=== PATIENT | female | born 1940 | race Caucasian/White ===

== ENCOUNTER 2017-09-28 11:37 | Inpatient (IN) ==
--- NOTE | 2017-09-28 12:17 | Emergency Department Report ---
Medical Clearance HPI - General Chief complaint: Medical Clearance Stated complaint: [facility] eval Time Seen by Provider: 09/28/17 12:08 Source: patient, RN notes reviewed Limitations: no limitations - History of Present Illness HPI Narrative: Pt presents for medical clearance for [facility] admit. Pt had a biopsy with a lumpectomy in July and has had progressively increasing delusions and somatic complaints since. Pt does have a known history of schizophrenia. Pt denies any physical complaints at this time. MD complaint: medical clearance requested Alleged Intoxication: No Compliant with Home Medications: Yes Associated Symptoms: denies other symptoms Home medications: Home Medications Medication Instructions Recorded Confirmed Acetaminophen 650 mg PO Q4H PRN 09/28/17 09/28/17 Amlodipine [Norvasc] 5 mg PO DAILY 09/28/17 09/28/17 CALCIUM CARBONATE Chewable [Tums] 1,000 mg PO Q6H PRN 09/28/17 09/28/17 Duloxetine HCl [Duloxetine HCl] 20 mg PO DAILY 09/28/17 09/28/17 Ferrous Sulfate [Iron] 325 mg PO DAILY 09/28/17 09/28/17 Insulin Glargine,Hum.rec.anlog 12 unit SQ HS 09/28/17 09/28/17 [Lantus Solostar] LORazepam [Ativan] 0.5 mg PO Q8H PRN 09/28/17 09/28/17 Letrozole [Letrozole] 2.5 mg PO DAILY 09/28/17 09/28/17 Levothyroxine Sodium 137 mcg PO ACB 09/28/17 09/28/17 [Levothyroxine Sodium] Lisinopril [Prinivil] 40 mg PO DAILY 09/28/17 09/28/17 Magnesium Hydroxide [Milk of 30 ml PO DAILY PRN 09/28/17 09/28/17 Magnesia] Magnesium Oxide [Magnesium] 400 mg PO ACBID 09/28/17 09/28/17 Metformin HCl [Glucophage] 1,000 mg PO BID 09/28/17 09/28/17 Oxybutynin Chloride [Oxybutynin 10 mg PO HS 09/28/17 09/28/17 Chloride ER] Potassium Chloride [Potassium 20 meq PO TID 09/28/17 09/28/17 Chloride] Tramadol [Ultram] 25 mg PO QID PRN 09/28/17 09/28/17 Triamcinolone 0.1% Cream 15 G 1 applicatio TOP DAILY 09/28/17 09/28/17 [Kenalog] risperiDONE [Risperidone] 0.5 mg PO QAM 09/28/17 09/28/17 risperiDONE [Risperidone] 1 mg PO HS 09/28/17 09/28/17 Allergies/Adverse reactions: Allergies Allergy/AdvReac Type Severity Reaction Status Date / Time amoxicillin Allergy Verified 09/28/17 12:11 clavulanic acid Allergy Verified 09/28/17 12:11 [From Augmentin] Penicillins Allergy Verified 09/28/17 12:11 Sulfa (Sulfonamide Allergy Verified 09/28/17 12:11 Antibiotics) trifluoperazine Allergy Verified 09/28/17 12:11 Review of Systems All systems: reviewed and negative except as stated Psychiatric: Reports: as per HPI PFSH Patient Stated Medical History Dementia Yes Hypertension Yes Diabetes Mellitus Type 2 Yes Gastroesophageal Reflux Yes Disease Hx Urinary Tract Infection Yes: HX Anemia Yes Other Infectious Yes: HX STAPH INFECTION "YEARS AGO" Bipolar Disorder Yes Depression Yes Schizophrenia Yes Physical Exam - Limitations Limitations: no limitations - General General appearance: alert, in no apparent distress - Normal Exams: Head:: Normocephalic without trauma Neck:: Full range of motion, without adenopathy Chest/Respirations:: Clear all mccann, with good airflow, and symmetry bilaterally Cardiovascular:: Regular rate and rhythm, without murmur or gallop, Pulses 2+ all extremities, capillary refill, <2 seconds all extremities Abdomen:: Bowel sounds positive, soft, non-tender, non-distended Musculoskeletal:: No tenderness, or deformity noted, good range of motion, all extremities Integumentary:: No rashes Neurological:: Patient is alert, cranial nerves, motor/sensory/cerebellar, exams w/o gross deficits, to observation Psychiatric:: Patient exhibits, appropriate attention, emotion and affect Course Vital Signs Temperature 97.2 F 09/28/17 11:40 Pulse Rate 90 09/28/17 11:40 Respiratory Rate 18 09/28/17 11:40 Blood Pressure 169/72 H 09/28/17 11:40 Pulse Oximetry 94 09/28/17 11:40 Temperature 97.2 F 09/28/17 11:40 Pulse Rate 90 09/28/17 11:40 Respiratory Rate 18 09/28/17 11:40 Blood Pressure 169/72 H 09/28/17 11:40 Pulse Oximetry 94 09/28/17 11:40 Medical Clearance - [facility] Narrative Medical decision making narrative: Labs, history and HPI reviewed. PT is medicaly clear for admission to [facility]. PT to be transferred per nursing - Differential Diagnosis Likely: urinary tract infection (depression, dementia, dehydration, acute psychosis) - Lab Data Attestation: I reviewed the patient's lab results. Result diagrams: 09/28/17 13:06 09/28/17 13:06 Lab Results 09/28/17 09/28/17 09/28/17 Range/Units 13:06 13:06 13:50 WBC 8.2 (4.5-11.0) T/MM3 RBC 3.64 L (4.00-5.20) M/MM3 Hgb 9.7 L (12-16) GM/DL Hct 31.0 L (36-46) % MCV 85.2 (80-100) UM3 MCH 26.6 (26-34) UUG MCHC 31.3 (31-37) GM/DL RDW Std Deviation 46.5 (36.9-50.2) FL Plt Count 209 (130-400) T/MM3 MPV 9.4 (9.4-12.4) UM3 Immature Gran % (Auto) 0.5 (0.0-0.5) % Neut % (Auto) 72.0 H (33-66) % Lymph % (Auto) 12.1 L (23-45) % Cole % (Auto) 9.8 H (0-9.0) % Eos % (Auto) 4.9 H (0-4) % Baso % (Auto) 0.7 (0-2) % Neut # (Auto) 5.9 (1.8-7.7) T/MM3 Lymph # (Auto) 1.0 (1-4.8) T/MM3 Cole # (Auto) 0.8 (0-0.8) T/MM3 Eos # (Auto) 0.4 (0-0.5) T/MM3 Baso # (Auto) 0.1 (0-0.2) T/MM3 Abs Immat Gran (auto) 0.04 H (0.00-0.03) T/MM3 Turbidity 23 H (0-20) Sodium 136 (134-144) MEQ/L Potassium 4.0 (3.6-5) MEQ/L Chloride 99 (98-107) MEQ/L Carbon Dioxide 26 (22-30) MEQ/L Anion Gap 11 (5-15) MEQ/L BUN 13.0 (7-17) MG/DL Creatinine 0.7 (0.7-1.2) MG/DL GFR Calculation 82 BUN/Creatinine Ratio 19 (6-26) RATIO Glucose 214 H (65-110) MG/DL Calculated Osmolality 268 (261-280) MOSM/KG Calcium 9.3 (8.4-10.2) MG/DL Total Bilirubin 0.40 (0.20-1.30) MG/DL Conjugated Bilirubin 0.00 (0.00-0.30) MG/DL Unconjugated Bilirubin 0.00 (0.00-1.1) MG/DL Icterus Index < 2 (0-7) AST 31 (14-36) U/L ALT 45 (9-52) U/L Alkaline Phosphatase 132 H (38-126) U/L Total Protein 7.3 (6.3-8.2) G/DL Albumin 4.0 (3.5-5.0) G/DL Globulin 3.3 (2.4-3.6) G/DL Albumin/Globulin Ratio 1.2 (1.1-2.2) RATIO Specimen Hemolysis < 15 (0-25) Ur Collection Type Urine, cath straight Urine Color Yellow (YELLOW) Urine Clarity Clear Urine pH 6.0 (5.0-8.0) Ur Specific [place] 1.015 (1.015-1.025) Urine Protein Negative (NEGATIVE) Urine Glucose (UA) Negative (NEGATIVE) Urine Ketones Negative (NEGATIVE) Urine Occult Blood Negative (NEGATIVE) Urine Nitrate Negative (NEGATIVE) Urine Bilirubin Negative (NEGATIVE) Urine Urobilinogen 0.2 (NORMAL) EU/DL Ur Leukocyte Esterase 1+ A (NEGATIVE) Urine RBC None seen (0-3) /HPF Urine WBC 5-10 H (0-5) /HPF Ur Squamous Epith Cells 0-5 Urine Bacteria None seen (NEGATIVE) Ur Culture Indicated? Cult not indicated Disposition Clinical Impression: Acute psychosis Schizo-affective psychosis Qualifiers: Schizoaffective disorder type: unspecified Qualified Code(s): F25.9 - Schizoaffective disorder, unspecified Disposition: 66 To [facility] Condition: Stable Prescriptions: No Action CALCIUM CARBONATE Chewable [Tums] 1,000 mg PO Q6H PRN PRN Reason: Indigestion Tramadol [Ultram] 25 mg PO QID PRN PRN Reason: Pain Acetaminophen 650 mg PO Q4H PRN PRN Reason: Pain Magnesium Hydroxide [Milk of Magnesia] 30 ml PO DAILY PRN PRN Reason: Constipation Oxybutynin Chloride [Oxybutynin Chloride ER] 10 mg PO HS Lisinopril [Prinivil] 40 mg PO DAILY Ferrous Sulfate [Iron] 325 mg PO DAILY Magnesium Oxide [Magnesium] 400 mg PO ACBID Metformin HCl [Glucophage] 1,000 mg PO BID Amlodipine [Norvasc] 5 mg PO DAILY risperiDONE [Risperidone] 1 mg PO HS Insulin Glargine,Hum.rec.anlog [Lantus Solostar] 12 unit SQ HS risperiDONE [Risperidone] 0.5 mg PO QAM Letrozole [Letrozole] 2.5 mg PO DAILY Triamcinolone 0.1% Cream 15 G [Kenalog] 1 applicatio TOP DAILY Levothyroxine Sodium [Levothyroxine Sodium] 137 mcg PO ACB LORazepam [Ativan] 0.5 mg PO Q8H PRN PRN Reason: Anxiety/Agitation Potassium Chloride [Potassium Chloride] 20 meq PO TID Duloxetine HCl [Duloxetine HCl] 20 mg PO DAILY Time of Disposition: 14:18 - Seen By: mireya
--- OUTSIDE RECORDS SUMMARY | 2017-09-28 12:22 | External Medical Summary | Referral Summary ---
:1940 Author Organization [facility] Address [address] [place] [address] Care Team Providers Name Role Phone Montez Rose Primary Care Physician Encounter [facility] [id number] Date(s): 04/21/15 - 04/21/15 [facility] [address] [place] [address]- [place] Discharge Diagnosis: Photoaged skin Discharge Diagnosis: Neoplasm of uncertain behavior, site unspecified Discharge Disposition: 01-Home or Self Care Attending Physician: Anam Melo MD Admitting Physician: Anam Melo MD Referring Physician: Montez Rose MD Vital Signs No data available for this section Problem List Condition Effective Dates Status Health Status Informant Acute pain(Confirmed) Active At risk of pressure sore(Confirmed) Active Bipolar disorder(Confirmed) Active patient Chronic anemia(Confirmed) Active patient Diabetes mellitus(Confirmed) Active patient GERD (gastroesophageal reflux Active patient disease)(Confirmed) Hyperlipidemia(Confirmed) Active patient Hypertension(Confirmed) Active patient Hypothyroidism(Confirmed) Active patient Knowledge deficit(Confirmed)1 Active Breast cancer(Confirmed) Active patient Tissue perfusion Active alteration(Confirmed)2 Tobacco user(Confirmed) Active patient 1Problem added automatically by system based on initiation of Knowledge Deficit Plan of [id number] added automatically by system based on initiation of Tissue Perfusion Cerebral Plan of Care Allergies, Adverse Reactions, Alerts Substance Reaction Severity Status amoxicillin unknown Active penicillin unknown Severe Active patient couldn"t remember sulfamethoxazole depression Severe Active Unknown trifluoperazine unknown Active Medications acetaminophen 325 mg oral tablet 2 tabs, Oral, q4hr, Pain Mild (1-3), 0 Refill(s) Start Date: 09/11/14 Status: Orderedalbuterol 2.5 mg/3 mL (0.083%) inhalation solution 3 mL, Inhalation, q2hr, as needed for wheezing, 0 Refill(s) Start Date: 08/28/14 Status: Orderedalbuterol 5 mg/mL (0.5%) inhalation solution 0.5 mL, NEB, q2hr (scheduled), Other (See Comment), 0 Refill(s) Start Date: 09/11/14 Status: OrderedhydrOXYzine hydrochloride 25 mg oral tablet 1 tabs, Oral, Bedtime (once a day), 0 Refill(s) Start Date: 09/11/14 Status: Orderedipratropium 500 mcg/2.5 mL inhalation solution 2.5 mL, NEB, q2hr (scheduled), Other (See Comment), 0 Refill(s) Start Date: 09/01/14 Status: OrderedKlor-Con 20 mEq, Oral, Daily, 0 Refill(s) Start Date: 09/01/14 Status: OrderedLasix 40 mgj, Oral, Daily, 0 Refill(s) Start Date: 08/28/14 Status: Orderedmagnesium oxide 400 mg (241.3 mg elemental magnesium) oral tablet 2 tabs, Oral, BIDWM, 0 Refill(s) Start Date: 09/01/14 Status: OrderedmetFORMIN 500 mg oral tablet 2 tabs, Oral, BIDWM, 0 Refill(s) Start Date: 09/01/14 Status: Orderedmiconazole 2% topical powder 1 amanda, Topical, BID, 0 Refill(s) Start Date: 09/11/14 Status: OrderedMiraLax 17 g, Oral, Daily, Constipation, 0 Refill(s) Start Date: 09/01/14 Status: Orderedomeprazole 20 mg oral delayed release capsule 1 caps, Oral, BID, 0 Refill(s) Start Date: 09/01/14 Status: OrderedSynthroid 137 mcg (0.137 mg) oral tablet 1 tabs, Oral, Daily, 0 Refill(s) Start Date: 09/01/14 Status: OrderedTherapeutic Multiple Vitamins with Minerals oral tablet, chewable Oral, Daily, 0 Refill(s) Start Date: 09/01/14 Status: OrderedToprol-XL 100 mg oral tablet, extended release 2 tabs, Oral, Daily, 0 Refill(s) Start Date: 09/01/14 Status: OrderedZyPREXA Zydis 10 mg oral tablet, disintegrating 1 tabs, Oral, Bedtime (once a day), # 30 tabs, 0 Refill(s), Indication: psychosis, other reason (Rx) Start Date: 09/11/14 Status: OrderedZyPREXA Zydis 5 mg oral tablet, disintegrating 0.5 tabs, Oral, Bedtime (once a day), Insomnia, 0 Refill(s) Start Date: 09/11/14 Status: Ordered Results No data available for this section Immunizations Vaccine Date Refusal Reason influenza virus vaccine, live 05/20/13 Procedures Procedure Date Related Diagnosis Body Site Shaving of epidermal or dermal lesion, single 04/21/15 lesion, scalp, neck, hands, feet, genitalia; lesion diameter 1.1 to 2.0 cm Shaving of epidermal or dermal lesion, single 04/21/15 lesion, scalp, neck, hands, feet, genitalia; lesion diameter 1.1 to 2.0 cm Shaving of epidermal or dermal lesion, single 04/21/15 lesion, scalp, neck, hands, feet, genitalia; lesion diameter 1.1 to 2.0 cm Cholecystectomy Total knee replacement Social History Social History Type Response Smoking Status Former smoker Assessment and Plan Extracted from: Title: Office Visit Note Author: Anam Melo MD Date: 04/21/15 Assessment/Plan 1.Photoaged skin Sun protection advised Ordered: Office Visit Level 2 [place] [address] Neoplasm of uncertain behavior, site unspecified Shave removal of 1.3 cm of tissue to rule out squamous cell carcinoma versus AK versus wart on the right dorsal hand area and I can excise this if needed Options/risks/benefits of the procedure were discussed and explained and consent was obtained. Specifically discussed risks of scarring, abnormal scarring, skin changes such as color or texture arcos ges, recurrence, bleeding, infection, need for further treatment, and other unexpected risks/outcomes of these types of skin procedures. Final timeout performed. Site(s) for biopsy were prepared by cleaning and injecting each site with <1cc of buffered lidocaine with epi 1: 100,000. Site(s) were removed with shave blade in usual fashion. Hemostasis was obtained with drysol and/or hyfrecation as needed. Ointment and bandages placed where needed. Wound care instructions given Ordered: Office Visit Level 2 [facility] [address] Shave 1 Lesion; Scalp, Neck, Hands, Feet, Genitalia (1.1 -2.0 cm) [id number]
--- OUTSIDE RECORDS SUMMARY | 2017-09-28 12:22 | External Medical Summary ---
:1940 Author Organization [employer] Care Team Providers Name Role Phone Ayah Zurita Provider Role Unavailable Allergies, Adverse Reactions, Alerts Substance Reaction Event Type Stelazine Info Not Available Non Drug Allergy Sulfa Info Not Available Non Drug Allergy Problems Problem Type Condition Code Onset Dates Condition Status Problem Gastric polyps 211.1 Active Problem Acute gastric ulcer 531.30 Active Problem Cirrhosis 571.5 Active Assessment Acute gastric ulcer 531.30 Active Assessment Cirrhosis 571.5 Active Assessment Gastric polyps 211.1 Active Medications Medication Code Code Instructions Start End Date Status Dosage System Date Cymbalta [facility] 34399-61 30 MG Orally 1 capsule 40-01 Twice a day Glucophage [facility] 47990-82 500 MG Orally 2 tablet 60-05 Twice a day with meals Zyprexa [facility] 01048-47 10 MG Orally at 1 tablet 17-01 bedtime HydrOXYzine HCl [facility] 37768-25 25 MG Orally at not defined 61-01 [place] [address]-84 40 MG Orally 1 tablet 60-13 Once a day Prilosec [facility] 36704-34 20 MG Orally 1 capsule 42-31 twice a day Klor-Con M20 [facility] 83985-91 20 MEQ Orally 1 tablet 58-01 daily Toprol XL [facility] 79115-67 100 MG Orally 2 tablet 92-05 Once a day Ipratropium-Albu [facility] 36075-50 0.5-2.5 (3) 3 ml terol 23-73 MG/3ML Inhalation Four [place] [address]-96 Orally as 17 grams 34-02 needed Miconazole [facility] 08496-33 as needed not defined 39-[address] [facility] 28160-13 1 MG Orally Once 3 capsule 26-01 a day Synthroid [facility] 15468-98 137 MCG Orally 1 tablet 27-13 Once a day Tylenol [facility] 99313-11 325 MG Orally 1 tablet as 96-60 every 6 hrs needed Zyprexa [facility] 96977-56 5 MG Orally at 0[place] [address]-02 0.5 MG Orally 1 tablet as three a day needed Magnesium Oxide [facility] 77721-46 400 MG Orally 2 tablets 05-18 twice a day Procedures Procedure Coding System Code Date Office Visit, Est Pt., Level 4 CPT-4 30818 May 25, 2015 Vital Signs Date/Time: May 25, 2015 Blood Pressure Diastolic 82 mm Hg Blood Pressure Systolic 138 mm Hg Weight 204.4 lbs Respiratory Rate 18 /min Cardiac Monitoring Heart Rate 78 /min Results No Known Results Summary Purpose [employer] Submission
--- OUTSIDE RECORDS SUMMARY | 2017-09-28 12:23 | External Medical Summary | Continuity of Care Document ---
:1940 Author Organization [facility] Address [address] [place], [place] [address] Phone Care Team Providers Name Role Phone Montez Rose MD Unavailable Unavailable Allergies, Adverse Reactions, Alerts Substance Reaction Severity Status amoxicillin Unknown Active Penicillins Unknown Active Sulfa (Sulfonamide Antibiotics) Unknown Active trifluoperazine Unknown Active Medications Medication Instructions Dosage Effective Status Comments Dates (start - stop) Synthroid 137 mcg take 1 tablet by 137 MCG - Active tablet oral route every day Lantus 100 unit/mL 10 units at - Active subcutaneous bedtime solution acetaminophen 325 take 1 tablet by - Active mg tablet oral route every 4 hours as needed tramadol 50 mg take 1 tablet by 50 MG - Active tablet oral route every 6 hours as needed doxycycline hyclate take 1 tablet by 100 MG - Active 100 mg tablet oral route every day iron 325 mg (65 mg take 1 tablet by 325 MG - Active iron) tablet ORAL route every day magnesium 250 mg - Active tablet oxybutynin chloride take 1 tablet by 10 MG - Active ER 10 mg oral route every tablet,extended day release 24 hr lisinopril 30 mg take 1 tablet by 30 MG - Active tablet oral route every day Ativan 0.5 mg Take 1 PO TID - Active tablet Cymbalta 30 mg take 1 capsule by - Active capsule,delayed oral route 2 times release every day metformin 500 mg Given 3 tabs PO in - Active tablet AM and 2 tabs PO in PM Zyprexa 10 mg take 1 tablet by 10 MG - Active tablet oral route every day Klor-Con M20 mEq take 1 tablet by 20 MEQ - Active tablet,extended oral route every release day with food nystatin 100,000 apply by topical Not Available - No Longer unit/gram topical route 2 times Active cream every day to the affected area(s) miconazole powder Apply to asmita area - No Longer QD for vaginal Active itching Therapeutic M Take 1 chewable - No Longer tablet tablet QD Active Toprol XL 50 mg take 1 tablet by 50 MG - No Longer tablet,extended oral route every Active release day Amaryl 2 mg tablet take 1 tablet by 2 MG - No Longer oral route every Active day Prilosec 20 mg take 1 capsule by 20 MG - No Longer capsule,delayed oral route 2 times Active release every day before a meal Problems Condition Effective Dates (start - stop) Clinical Status Uterine Cancer, Endometrial Morbid (severe) obesity due to excess calories Lichen sclerosus et atrophicus Body mass index (BMI) 39.0-39.9, adult Uterine Cancer, Endometrial Morbid (severe) obesity due to excess calories Body mass index (BMI) 38.0-38.9, adult Uterine Cancer, Endometrial Morbid (severe) obesity due to excess calories Oth complications of procedures, NEC, init Body mass index (BMI) 38.0-38.9, adult Uterine Cancer, Endometrial Oth complications of procedures, NEC, init Encntr for f/u exam aft trtmt for cond oth than malig neoplm Uterine Cancer, Endometrial Oth complications of procedures, NEC, init Encntr for f/u exam aft trtmt for cond oth than malig neoplm Uterine Cancer, Endometrial Morbid (severe) obesity due to excess calories Body mass index (BMI) 40.0-44.9, adult Uterine Cancer, Endometrial Type 2 diabetes mellitus without complications Morbid (severe) obesity due to excess calories Body mass index (BMI) 45.0-49.9, adult Uterine Cancer, Endometrial Type 2 diabetes mellitus without complications Body mass index (BMI) 38.0-38.9, adult Type 2 diabetes mellitus without complications Morbid (severe) obesity due to excess calories Paranoid schizophrenia Endometrial Hyperplasia, Complex With Atypia Body mass index (BMI) 39.0-39.9, adult Endometrial Hyperplasia, Complex With Atypia Body Mass Index 37.0-37.9, Adult - Active Hypertension - Active Hyperlipidemia Active Procedures Procedure Date Office/outpatient visit,est, mod Results Test Name Date and Time Measure Units Reference Range Abnormal Flag Comments Unknown Advance Directives Directive Yes / No Effective Date File Name Unknown Encounters Encounter Practice Location Reason(s) For Diagnoses Date Provider Care Team Description Visit Members Office/outpa [facility] uterine Uterine Cancer, [place] Referring tient In Womens cancer EndometrialMorbi Escobar. Provider: visit,est, [facility], surveillance d (severe) [address] (chief obesity due to [place], [place], [address], complaint)Makayla excess [place], [address], rine cancer caloriesLichen [place], [place], [place], (chief sclerosus et [id number] [address], , complaint) atrophicus[place] , [place], [address]. [place] mass index (BMI) tel: tel:+ tel:+ 39.0-39.9, adult [phone] [facility] Uterine Cancer, [place] Referring In Womens EndometrialType Escobar. Provider: [facility], 2 diabetes [address] mellitus without [place], [place], [address], complicationsMor [place], [address], bid (severe) [place], ANAND Nielsen, obesity due to [id number] [place], [id number], [place] , [place], [address]. [place] caloriesBody tel: tel: tel:+2 mass index (BMI) [phone] 45.0-49.9, adult [facility] Uterine Cancer, [place] Referring In Womens EndometrialMorbi Escobar. Provider: [facility], d (severe) [address] obesity due to [place], [place], [address], excess [place], [address], caloriesBody [place], [place], [place], mass index (BMI) [id number] [place], [id number], 40.0-44.9, [place] , [place], [address]. [place] tel: tel:+[phone] tel:[phone] [facility] Uterine Cancer, [place] Referring In Womens EndometrialType 1- Escobar. Provider: Cruzito CARMONA, Robin diabetes [address] mellitus without [place], [place], [address], complicationsBod [place], [address], y mass index [place], [place], [place], (BMI) 38.0-38.9, [id number] [place], [id number], [place] , [place], [address]. [place] tel: tel: tel: [phone] [facility] Uterine Cancer, [place] Referring In Womens EndometrialMorbi - Escobar. Provider: Cruzito CARMONA d (severe) [address] obesity due to [place], [place], [address], excess [place], [address], caloriesBody ANAND, [place], [place], mass index (BMI) [id number] [place], [id number], 38.0-38.9, [place] , [place], [address]. [place] tel: tel: tel: [phone] [facility] Uterine Cancer, [place] Referring In Womens EndometrialMorbi 4-201 Escobar. Provider: [place] (severe) [address] obesity due to [place], [address], excess [place], [address], caloriesOth [place], [place], [place], complications of [id number] [place], [id number], procedures, [place], , [place], [address]. [place] initBody mass tel: tel: tel: index (BMI) [phone] 38.0-38.9, adult [facility] Uterine Cancer, [place] Referring In Womens EndometrialOth 3- Escobar. Provider: Cruzito CARMONA, complications of [address] procedures, N[place], [place], 15[address], initEncntr for [place], [address], f/u exam aft [place], [place], [place], trtmt for cond [id number] [place], [id number], ot than [facility] , [place], [address]. [place] neoplm tel: tel: tel: [phone] [facility] Uterine Cancer, [place] Referring In Womens EndometrialOth 1- Escobar. Provider: Health MATHEW, complications of [address] procedures, N[place], [place], 1522, initEncntr for [place], [address], f/u exam aft [place], [place], [place], trtmt for cond [id number] [place], [id number], ot than [facility] , [place], [address]. [place] neoplm tel: tel: tel: [phone] [facility] Endometrial May- [place] Referring In Womens Hyperplasia, 7 Escobar. Provider: Cruzito CARMONA, Complex With [address] Atypia [place], 15[address], [place], [address], [place], [place], [place], [id number] [address], [id number], , [place], [address]. [place] tel: tel: tel: [phone] [facility] Type 2 diabetes May-2 [place] In Womens mellitus without 0-201 Amanda CARMONA, complicationsMor [address] bid (severe) [place], 1522, obesity due to [place], [place], [place], [place], caloriesParanoid [id number], [facility] , [place]. [place] ometrial tel: tel: Hyperplasia, [phone] Complex With AtypiaBody mass index (BMI) 39.0-39.9, adult [facility] Nov- [place] Referring In Womens 2-201 Escobar. Provider: Health MATHEW, [address] [place] [address], [address], [place], [address], [place], [place], [place], [id number] [address], [id number], , [place], [address]. [place] tel: tel: tel: [phone] [facility] Nov-0 [place] Referring In Womens 9-201 Amanda Provider: [facility], [address]. [address] [place] [address], [address], [place], [address], [place], [place], [place], [id number] [place], [id number], , [place], [address]. [place] tel: tel: tel: [phone] Family History Family Member Diagnosis Age At Onset No family history of Lung Disease No family history of Osteoporosis No family history of Kidney Disease No family history of Ovarian Cancer Mother Diabetes mellitus Mother Hypertension Father Cardiovascular Disease No family history of Epilepsy No family history of Stroke No family history of Colon Cancer No family history of Breast Cancer No family history of Thyroid Disorder Immunizations Vaccine Date Status Comments Unknown Payers Payer name Insurance type Covered libertarian ID Authorization(s) Medicare MB [id number] [employer] [place] [employer] - Medicaid MC [id number] Social History Type Description Quantity Date Captured Alcohol Use Details No Caffeine Use Details Tobacco Use Status Never smoked tobacco Smoking Status Never smoker Non-Smoking Tobacco Use : No Details Available : No Details Available Details Vital Signs Date / Height Weight BMI Pulse Blood Temperature Respiratory Body Head BMI Time: Rate Pressure Rate Surface Circumference percentile Area 61.00 207.00 39.1 72 138/ in lbs 1 /min mm[Hg] 1:34 kg/m PM eter (2) Chief Complaint And Reason For Visit Most recent encounter only, dated '08/22/2017 13:40'. uterine cancer surveillance (chief complaint). Description: Primary tumor location was the uterus. She is currently not undergoing any treatment. Previous treatment include(s) surgery. Performance Status: The patient is restricted in some physical activity but is able to perform normal activities with effort. She had Rt breast lumpectomy last month w/Dr. Caldwell. She states that it was cancer. She states that she has been having a vaginal discharge x 1 month. She does states that she has itching, burning and odor. She has some abdominal pain. No pelvic pain. Nrl bowel and bladder function. Appetiteis stable. She is to see a Medical Oncologist in the near future.Uterine cancer (chief complaint). Description: Initial consult on 12/16/14. Referred by Dr. Rose for pelvic/ uterine mass. Patient is accompanied today by her jail transporter. Pt is a poor historian and isn't sure why she is here for appointment today. Per records, pt had a CT scanon 10/12/14 for f/u cirrhosis and ascites. Pt had incidental uterine findings and was referred here. CT on 10/12/14: There is a low density foci centrally in the uterus that measures 2.1cm. US on : the uterus measures 3.8 x 8.7cm. In the anterior myometrium there is a hypoechoic 1.7 x 1.0cm mass consistent with a fibroid. The endometrial echo measures 10mm. Within the central portion of theendometrial cavity at the fundus there is increased blood flow. TVUS was then performed on 11/05/14 but was limited due to the high location of the uterus. Report states the images were of better quality from 10/16/14. Pt states she has had some vaginal spotting in the last few weeks. She is unsure of the origin but believes it may be due to sc Reason For Referral Reason For Referral Unknown Plan Of Care Date Type Action Status Appointment Savanna Glass BOOKED Date Type Problem Goal Intervention Status Start Date Unknown. History Of Present Illness Encounter Date Complaint History Of Present Illness uterine cancer surveillance Primary tumor location was the uterus. She is currently not undergoing any treatment. Previous treatment include(s) surgery. Performance Status: The patient is restricted in some physical activity but is able to perform normal activities with effort. She had Rt breast lumpectomy last month w/Dr. Caldwell. She states that it was cancer. She states that she has been having a vaginal discharge x 1 month. She does states that she has itching, burning and odor. She has some abdominal pain. No pelvic pain. Nrl bowel and bladder function. Appetite is stable. She is to see a Medical Oncologist in the near future. Uterine cancer Initial consult on 12/16/14. Referred by Dr. Rose for pelvic/uterine mass. Patient is accompanied today by her jail transporter. Pt is a poor historian and isn't sure why she is here for appointment today. Per records, pt had a CT scan on 10/12/14 for f/u cirrhosis and ascites. Pt had incidental uterine findings and was referred here. CT on 10/12/14: There is a low density foci centrally in the uterus that measures 2.1cm. US on 10/16/14: the uterus measures 3.8 x 8.7cm. In the anterior myometrium there is a hypoechoic 1.7 x 1.0cm mass consistent with a fibroid. The endometrial echo measures 10mm. Within the central portion of the endometrial cavity at the fundus there is increased blood flow. TVUS was then performed on 11/05/14 but was limited due to the high location of the uterus. Report states the images were of better quality from 10/16/14. Pt states she has had some vaginal spotting in the last few weeks. She is unsure of the origin but believes it may be due to... Functional Status Encounter Date Functional Assessment Cognitive Assessment Unknown Medications Administered Medication Instructions Dosage Effective Dates (start - stop) Status Comments Drug Treatment Unknown Instructions Date Instruction Additional Information Unknown
--- OUTSIDE RECORDS SUMMARY | 2017-09-28 12:23 | External Medical Summary | Referral Summary ---
:1940 Author Organization [facility] Address [address] [place] [address] Care Team Providers Name Role Phone Montez Rose Primary Care Physician Encounter VC Date(s): 12/29/14 - 12/29/14 [facility] [address] [place] [address] [place] Discharge Disposition: 01-Home or Self Care Attending Physician: Brit Juarez MD Admitting Physician: Brit Juarez MD Vital Signs No data available for [...] on initiation of Knowledge Deficit Plan of [id number] added automatically by system based on initiation [...] Procedures Procedure Date Related Diagnosis Body Site Cholecystectomy Total knee replacement Social History Social History Type Response Smoking Status Former smoker Assessment and Plan No data available for this section
--- OUTSIDE RECORDS SUMMARY | 2017-09-28 12:23 | External Medical Summary | Continuity of Care Document ---
:1940 Author Organization [facility] Address [address] [place], [place] [address] Phone Care Team Providers Name Role Phone Montez Rose MD Unavailable Unavailable Allergies, Adverse Reactions, Alerts Substance Reaction Severity Status amoxicillin Unknown Active Penicillins Unknown Active Sulfa (Sulfonamide Antibiotics) Unknown Active trifluoperazine Unknown Active Medications Medication Instructions Dosage Effective Dates Status Comments (start - stop) Synthroid 137 mcg take 1 tablet by 137 MCG - Active tablet oral route every day Lantus 100 unit/mL 10 units at bedtime - Active subcutaneous solution lisinopril 30 mg take 1 tablet by 30 MG - Active tablet oral route every day Ativan 0.5 mg tablet Take 1 PO TID - Active Cymbalta 30 mg take 1 capsule by - Active capsule,delayed oral route 2 times release every day nystatin 100,000 apply by topical Not Available - Active unit/gram topical route 2 times every cream day to the affected area(s) miconazole powder Apply to asmita area - Active QD for vaginal itching Therapeutic M tablet Take 1 chewable - Active tablet QD Toprol XL 50 mg take 1 tablet by 50 MG - Active tablet,extended oral route every release day metformin 500 mg Given 3 tabs PO in - Active tablet AM and 2 tabs PO in PM Amaryl 2 mg tablet take 1 tablet by 2 MG - Active oral route every day Prilosec 20 mg take 1 capsule by 20 MG - Active capsule,delayed oral route 2 times release every day before a meal Zyprexa 10 mg tablet take 1 tablet by 10 MG - Active oral route every day Klor-Con M20 mEq take 1 tablet by 20 MEQ - Active tablet,extended oral route every release day with food Problems Condition Effective Dates (start - stop) Clinical Status Uterine Cancer, Endometrial Morbid (severe) obesity due to excess calories Body mass index (BMI) 40.0-44.9, adult Uterine Cancer, Endometrial Morbid (severe) obesity [...] oth than malig neoplm Uterine Cancer, Endometrial Type 2 diabetes mellitus without complications Body mass index (BMI) 38.0-38.9, adult Type 2 diabetes mellitus without complications Morbid (severe) obesity due to excess calories Paranoid schizophrenia Endometrial Hyperplasia, Complex With Atypia Body mass index (BMI) 39.0-39.9, adult Endometrial Hyperplasia, Complex With Atypia Body Mass Index 37.0-37.9, Adult - Active Hypertension - Active Hyperlipidemia Active Procedures Procedure Date Office/outpatient visit,[facility] Results Test Name Date and Time Measure Units Reference Range Abnormal Flag Comments Unknown Advance Directives Directive Yes / No Effective Date File Name Unknown Encounters Encounter Practice Location Reason(s) For Diagnoses Date Provider Care Team Description Visit Members Office/outpa [facility] Uterine Uterine Cancer, Ant Referring tient In Womens cancer EndometrialMorbi 8-201 Escobar. Provider: visit,[facility], surveillance d (severe) [address] (chief obesity due to [place], 15[address], complaint)Makayla excess [place], [address], rine cancer caloriesBody [place], [place], (chief mass index (BMI) [id number] [address], [id number], complaint) 40.0-44.9, adult , [place]. [place], tel: [place], [address]. tel:[phone] tel:[phone] [facility] Uterine Cancer, [place] Referring In Womens EndometrialType 1-201 Escobar. Provider: Health MATHEW, 2 diabetes [address] mellitus without [place], [place], [address], complicationsBod [place], [address] [place], y mass index [place], [place], (BMI) 38.0-38.9, [id number] [address], [id number], adult , [place]. [place], [place] tel:+09-26 [place], [address]. tel:+ [phone] tel: [phone] [facility] Uterine Cancer, [place] Referring In Womens EndometrialMorbi - Escobar. Provider: [facility], d (severe) [address] obesity due to [place], [place], [address], excess [place], [address], caloriesBody [place], [place], mass index (BMI) 532895350 [address], , 38.0-38.9, adult , [place]. [place], [place] tel:+09-26 [place], [address]. tel:[phone] tel: [phone] [facility] Uterine Cancer, [place] Referring In Womens EndometrialMorbi 4-201 Escobar. Provider: Health MATHEW, d (severe) [address] obesity due to [place], 1522, excess [place], [address], caloriesOth [place], [place], complications of [id number] [address], [id number], procedures, N[place], , [place]. [place], [place], [address]. tel: index (BMI) [phone] tel:+ 38.0-38.9, adult [phone] [facility] Uterine Cancer, [place] Referring In Womens EndometrialOth 3-201 Escobar. Provider: Cruzito CARMONA, complications of [address] procedures, NEC, [place], [place], [address], initEncntr for [place], [address], f/u exam aft [place], [place], trtmt for cond [id number] [address], [id number], [facility] [place], neoplm tel: [place], [address]. tel: [phone] tel: [phone] [facility] Uterine Cancer, Nov- [place] Referring In Womens EndometrialOth 1- Escobar. Provider: [facility], complications of [address] procedures, NEC, [place], 1522, initEncntr for [place], [address], f/u exam aft [place], [place], trtmt for cond [id number] [address], [id number], [facility] [place], neoplm [place], [address]. tel: [phone] tel: [phone] [facility] Endometrial May- [place] Referring In Womens Hyperplasia, 7-201 Escobar. Provider: Health MATHEW, Complex With [address] Atypia [place], 15[address], [place], [address], [place], [place], [id number] [address], [id number], , . [place], [place], [address]. tel: [phone] tel: [phone] [facility] Type 2 diabetes May-2 [place] In Womens mellitus without 0-201 Amanda [place], complicationsMor 5 [address] bid (severe) [place], 1522, obesity due to [place], [place], excess [place], [place], caloriesParanoid [id number], [facility] , . [place] ometrial tel: tel: Hyperplasia, Complex With AtypiaBody mass index (BMI) 39.0-39.9, adult [facility] Nov-2 [place] Referring In Womens 2-201 Escobar. Provider: Health MATHEW, [address] [place], 1522, [place], [address] [place] [place], [facility], [id number] [address] [facility], [id number], , [place]. [facility] tel: [place], [address]. tel: [phone] tel: [phone] [facility] Apr-0 [place] Referring In Womens 9-201 Amanda Provider: Health MATHEW, [address] [place], 15[address], [place], [address] [place], [place], [place], [place], [id number] [place], [id number], , [place], [address]. tel: tel: tel: [phone] Family History Family Member Diagnosis Age At [...] Unknown Payers Payer name Insurance type Covered green party ID Authorization(s) Medicare MB [id number] [employer] [place] [employer] - Medicaid MC [id number] Social History Type Description Quantity Date Captured Alcohol Use Details No Caffeine Use Details Tobacco Use Status Never smoked tobacco Smoking Status Never smoker Vital Signs Date / Height Weight BMI Pulse Blood Temperature Respiratory Body Head BMI Time: Rate Pressure Rate Surface Circumference percentile Area 61.00 216.80 40.9 140/80 -2015/ in lbs 6 mm[Hg] 14:30: kg/m 00 eter (2) Chief Complaint And Reason For Visit Most recent encounter only, dated '08/23/2016 14:10'. Uterine cancer surveillance (chief complaint). Description: Primary tumor location was the uterus. She is currently not undergoing any treatment. Previous treatment include(s) surgery. Performance Status: The patient is restricted in some physical activity but is able to perform normal activities with effort. Patient had (L) shoulder surgery Jun 29 w/ Dr. Brush. She is currently going through PT. She reports she is doing well, appetite is stable. Nrl bowel/ bladder. Denies vaginal/rectal bleeding or any pain at this time.Uterine cancer (chief complaint). Description: Initial consult on 12/16/14. Referred by Dr. Rose for pelvic/uterine mass. Patient is accompanied today by her shelter transporter. Pt is a poor historian and [...] Encounter Date Complaint History Of Present Illness Uterine cancer surveillance Primary tumor location was the uterus. She is currently not undergoing any treatment. Previous treatment include(s) surgery. Performance Status: The patient is restricted in some physical activity but is able to perform normal activities with effort. Patient had (L) shoulder surgery Jun 29 w/ Dr. Brush. She is currently going through PT. She reports she is doing well, appetite is stable. Nrl bowel/bladder. Denies vaginal/rectal bleeding or any pain at this time. Uterine cancer Initial consult on 12/16/14. Referred by Dr. Rose for pelvic/uterine mass. Patient is accompanied today by her shelter transporter. Pt is a poor historian and [...]
--- OUTSIDE RECORDS SUMMARY | 2017-09-28 12:23 | External Medical Summary ---
:1940 Author Organization eClinicalWorks Care Team Providers Name Role Phone Varun Soto Provider Role Unavailable Allergies No Known Allergies Problems Problem Type Condition ICD-9 Code Onset Dates Condition Status Assessment Cirrhosis 571.5 Active Medications No Known Medications Results No Known Results Summary Purpose eClinicalWorks Submission
--- OUTSIDE RECORDS SUMMARY | 2017-09-28 12:23 | External Medical Summary | Continuity of Care Document ---
:1940 Author Organization [facility] Address [address] [place], [place] [id number] Phone Care Team Providers Name Role Phone Montez Rose MD Unavailable Unavailable Allergies, Adverse Reactions, Alerts Substance Reaction Severity Status amoxicillin Unknown Active trifluoperazine Unknown Active Penicillins Unknown Active Sulfa (Sulfonamide Antibiotics) Unknown Active Medications Medication Instructions Dosage Effective Dates Status Comments (start - stop) Synthroid 137 mcg take 1 tablet by oral 137 MCG - Active tablet route every day Lantus 100 unit/mL 10 units at bedtime - Active subcutaneous solution acetaminophen 325 mg take 1 tablet by oral - Active tablet route every 4 hours as needed tramadol 50 mg tablet take 1 tablet by oral 50 MG - Active route every 6 hours as needed doxycycline hyclate take 1 tablet by oral 100 MG - Active 100 mg tablet route every day iron 325 mg (65 mg take 1 tablet by ORAL 325 MG - Active iron) tablet route every day magnesium 250 mg - Active tablet oxybutynin chloride ER take 1 tablet by oral 10 MG - Active 10 mg tablet,extended route every day release 24 hr lisinopril 30 mg take 1 tablet by oral 30 MG - Active tablet route every day Ativan 0.5 mg tablet Take 1 PO TID - Active Cymbalta 30 mg take 1 capsule by - Active capsule,delayed oral route 2 times release every day metformin 500 mg Given 3 tabs PO in AM - Active tablet and 2 tabs PO in PM Zyprexa 10 mg tablet take 1 tablet by oral 10 MG - Active route every day Klor-Con M20 mEq take 1 tablet by oral 20 MEQ - Active tablet,extended route every day with release food Problems Condition Effective Dates (start - [...] Active Hyperlipidemia Active Procedures Procedure Date Office/outpatient visit,[facility] [place] Test Name Date and Time Measure Units Reference Range Abnormal Flag Comments Unknown Advance Directives Directive Yes / No Effective Date File Name Unknown Encounters Encounter Practice Location Reason(s) For Diagnoses Date Provider Care Team Description Visit Members Office/outpa [facility] uterine Uterine Cancer, Ant Referring tient In Womens cancer EndometrialMorbi 7-201 [place]. Provider: visit,est, Health [place], surveillance d (severe) [address] (chief obesity due to [place], 1522, complaint)[place] excess [place], [address] [place], rine cancer caloriesLichen [place], ANAND Nielsen, (chief sclerosus et [phone] [place], , complaint) at[place]us[place] , [place], [address]. [place] mass index (BMI) tel: tel: tel: 39.0-39.9, adult [phone] [facility] Uterine Cancer, [place] Referring In Womens EndometrialType [place]. Provider: Health MATHEW, 2 diabetes [address] mellitus without [place], [place], 1522, complicationsMor [place], [address] [place], bid (severe) [place], obesity due to [id number] [place], [id number], [place] , [place], [address]. [place] caloriesBody tel: tel: tel: mass index (BMI) [phone] 45.0-49.9, adult [facility] Uterine Cancer, [place] Referring In Womens EndometrialMorbi [place]obar. Provider: Health [place], d (severe) [address] obesity due to [place], [place], [address], excess [place], [address] [place], caloriesBody [place], ANAND Nielsen, mass index (BMI) [phone] [place], [id number], 40.0-44.9, [place] , [place], [address]. [place] tel: tel: tel: [phone] [facility] Uterine Cancer, [place] Referring In Womens EndometrialType -201 [place]. Provider: Health MATHEW, 2 diabetes [address] mellitus without [place], [place], 1522, complicationsBod [place], [address] [place], y mass index [place], ANAND Nielsen, (BMI) 38.0-38.9, [id number] [place], [id number], [place] , [place], [address]. [place] tel: tel: tel: [phone] [facility] Uterine Cancer, [place] Referring In Womens EndometrialMorbi [place]. Provider: [place] (severe) [address] obesity due to [place], [place], 1522, excess [place], [address] [place], caloriesBody [place], ANAND Nielsen, mass index (BMI) [phone] [place], [id number], 38.0-38.9, [place] , [place], [address]. [place] tel: tel: tel: [phone] [facility] Uterine Cancer, [place] Referring In Womens EndometrialMorbi 201 [place]. Provider: [place] (severe) [address] obesity due to [place], [place], [address], excess [place], [address] [place], caloriesOth [place], ANAND Nielsen, complications of [phone] [place], , procedures, [place], , [place], [address]. [place] initBody mass tel: tel: tel: index (BMI) [phone] [id number] 38.0-38.9, adult [facility] Uterine Cancer, [place] Referring In Womens EndometrialOth [place]. Provider: Cruzito CARMONA, complications of [address] procedures, NEC, [place], [place], [address], initEncntr for [place], [address] [place], f/u exam aft [place], trtmt for cond [id number] [place], [id number], [facility] , [place], [address]. [place] neoplm tel: tel: tel: [phone] [facility] Uterine Cancer, [place] Referring In Womens EndometrialOth - [place]. Provider: Cruzito CARMONA, complications of [address] procedures, NEC, [place], [place], [address], initEncntr for [place], [address] [place], f/u exam aft [place], trtmt for cond [phone] [place], [id number], oth than [facility] , [place], [address]. [place] neoplm tel: tel: tel: [phone] [facility] Endometrial May- [place] Referring In Womens Hyperplasia, 7-201 [place]. Provider: Health [place], Complex With [address] Atypia [place], [address], [place], [address] [place], [place], [place], [phone] [place], [id number], , [place], [address]. [place] tel: tel: tel: [phone] [facility] Type 2 diabetes May-2 [place] In Womens mellitus without 0-201 [facility] MATHEW, complicationsMor [address] bid (severe) [place], [address]22, obesity due to [place], [place], excess [place], [place], caloriesParanoid [id number], schizophreniaEnd , [place]. [place] ometrial tel: tel: Hyperplasia, [phone] Complex With AtypiaBody mass index (BMI) 39.0-39.9, adult [facility] [place] Referring In Womens 2-201 [place]obar. Provider: Health MATHEW, [address] [place], [address], [place], [address] [place], [place], [place], [place], [phone] [place], [id number], , [place], [address]. [place] tel: tel: tel: [phone] [facility] Apr-0 [place] Referring In Womens 9-201 Amanda Provider: Health MATHEW, [address] [place], [address], [place], [address] [place], [place], [place], [phone] [place], [id number], , [place], [address]. [place] tel: tel: tel: [phone] Family History Family Member Diagnosis Age At [...] Unknown Payers Payer name Insurance type Covered democrat ID Authorization(s) Medicare MB [id number] [employer] [place] [employer] - Medicaid [place] [id number] Social History Type Description Quantity Date Captured [...] mass. Patient is accompanied today by her [place] [facility]. Pt is a poor historian and [...] mass. Patient is accompanied today by her [place] [facility] [place]. Pt is a poor historian and [...]
--- OUTSIDE RECORDS SUMMARY | 2017-09-28 12:23 | External Medical Summary ---
:1940 Author Organization eClinicalWorks Care Team Providers Name Role Phone Varun oSto Provider Role Unavailable Allergies No Known Allergies Problems No Known Problems Medications No Known Medications Results No Known Results Summary Purpose eClinicalWorks Submission
--- OUTSIDE RECORDS SUMMARY | 2017-09-28 12:23 | External Medical Summary | Referral Summary ---
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 Discharge Disposition: 01-Home or Self Care Attending [...] on initiation of Knowledge Deficit Plan of [id number] added automatically by system based on initiation [...] Comment), 0 Refill(s) Start Date: 09/11/14 Status: OrderedCymbalta Oral, 0 Refill(s) Start Date: 11/29/15 Status: OrderedglipiZIDE Oral, Daily, 0 Refill(s) Start Date: 11/29/15 Status: OrderedhydrOXYzine hydrochloride 25 mg oral tablet 1 tabs, Oral, Bedtime (once a day), 0 Refill(s) Start Date: 09/11/14 Status: Orderedipratropium 500 mcg/2.5 mL inhalation solution 2.5 mL, NEB, q2hr (scheduled), Other (See Comment), 0 Refill(s) Start Date: 09/01/14 Status: OrderedKlor-Con 20 mEq, Oral, Daily, 0 Refill(s) Start Date: 09/01/14 Status: OrderedLasix 40 mgj, Oral, Daily, 0 Refill(s) Start Date: 08/28/14 Status: Orderedlisinopril Oral, Daily, 0 Refill(s) Start Date: 11/29/15 Status: Orderedmagnesium oxide 400 mg (241.3 mg [...] Procedures Procedure Date Related Diagnosis Body Site Excision, malignant lesion including margins, 06/01/15 scalp, neck, hands, feet, genitalia; excised diameter 1.1 to 2.0 cm Repair, intermediate, wounds of neck, hands, feet 06/01/15 and/or external genitalia; 2.6 cm to 7.5 cm.. Cholecystectomy Total knee replacement Social History Social History Type Response Smoking Status Former smoker Assessment and Plan Extracted from: Title: Ambulatory Patient Education Author: Anam Melo MD Date: 06/01/15 [facility] Medicine Squamous Cell Carcinoma Squamous cell carcinoma is the second most common form of skin cancer. It begins in the squamous cells in the outer layer of the skin (epidermis). CAUSES Ultraviolet light exposure is the most common cause of squamous cell carcinoma. This may come from sunlight or tanning beds. Squamous cell carcinoma is most common in sun-exposed areas like the face, ne ck, arms, and hands. However, squamous cell carcinoma can occur anywhere on the body, including the lips, inside the mouth, the legs, sites of long-term ( chronic) scarring, and the anus. Other causes of squamous cell carcinoma can include: Exposure to arsenic. Exposure to radiation. Exposure to toxic tars and oils. RISK FACTORS Factors that increase your risk for squamous cell carcinoma include: Having fair skin. Being middle-aged or elderly. Heavy sun exposure, especially during childhood. Repeated sunburns. Use of tanning beds. A weakened immune system. This includes patients who have received a transplant and patients with human immunodeficiency virus (HIV) or acquired immunodeficiency syndrome (AIDS). Human papillomavirus infection. Conditions that cause chronic scarring. This can include burn scars, chronic ulcers, heat (thermal) injuries, and radiation. Exposure to psoralen plus ultraviolet A light therapy. Exposure to chemical carcinogens, such as tar, soot, and arsenic. Chronic inflammatory conditions such as lupus, lichen planus, or lichen sclerosus. Chronic infections, such as infections of the bone (osteomyelitis). Smoking. SYMPTOMS Squamous cell carcinoma often starts as small, skin-colored (pink or brown), sandpaper-like growths. These growths are called solar keratoses or actinic keratoses. These growths are often more easily felt than seen. DIAGNOSIS Your caregiver may be able to tell what is wrong by doing a physical exam. Often, a tissue sample is also taken. The tissue sample is examined under a microscope. TREATMENT The treatment for squamous cell carcinoma depends on the size and location of the tumors, as well as your overall health. Possible treatments include: Mohs surgery. This is a procedure done by a skin doctor (manager analytical or Mohs surgeon) in his or her office. The cancerous cells are removed layer by layer. Laser surgery to remove the tumor. Freezing the tumor with liquid nitrogen (cryosurgery). Radiation. This may be used for tumors on the face. Electrodesiccation and curettage. This involves alternately scraping and burning the tumor, using an electric current to control bleeding. If treated soon enough, squamous cell carcinoma rarely spreads to other areas of the body (metastasizes). If left untreated, however, squamous cell carcinoma will destroy the nearby tissues. This can result in the loss of a nose or ear. PREVENTION Avoid the sun between 10:00 a.m. and 4:00 p.m. when it is the strongest. Use a sunscreen or sunblock with sun protection factor 30 or greater. Apply sunscreen at least 30 minutes before exposure to the sun. Reapply sunscreen every 2 to 4 hours while you are outside, after swimming , and after excessive sweating. Always wear protective hats, clothing, and sunglasses with ultraviolet protection. Avoid tanning beds. HOME CARE INSTRUCTIONS Avoid unprotected sun exposure. Do not smoke. Follow your caregiver's instructions for self-exams. Look for new growths or changes in your skin. Keep all follow-up appointments as directed by your caregiver. SEEK MEDICAL CARE IF: You notice any new growths or changes in your skin. You have had a squamous cell carcinoma tumor removed and you notice a new growth in the same location. Document Released: 02/17/2004 Document Revised: 12/28/2014 Document Reviewed: 05/06/2012 [facility] Patient Information 2015 [facility]. This information is not intended to replace advice given to you by your health care provider. Make sure you discuss any questions you have with your health care provider. No follow up information was provided. Extracted from: Title: Office Visit Note Author: Anam Melo MD Date: 06/01/15 Assessment/Plan 1.Squamous cell carcinoma of skin of right hand I excised the squamous cell carcinoma biopsy scar site which measured 0.7 cm on the right dorsal hand with 0.5 cm margins for an excised diameter of 1.7 cm. I did intermediate layered closure with buried 4-0 PDS and top 4-0 Prolene sutures with a final wound repair length of 4 cm. Follow-up in 10 days for suture removal and follow-up in 5 months for skin exam Options/risks/benefits of the procedure were discussed and explained and consent was obtained. Specifically discussed risks of scarring, abnormal scarring, skin changes such as color or texture arcos ges, recurrence, incomplete removal, bleeding, infection, need for further treatment, and other unexpected risks/outcomes of these types of skin procedures. Final timeout performed. Site(s) for exci yobani were prepared by cleaning and injecting each site with <5cc of buffered lidocaine with epi 1:100,000. Site was excised with margins with scalpel/scissors/forceps in usual fashion to the level of the subcutaneous fat. Wound edges were undermined. Hemostasis was obtained with hyfrecation as needed. Layered closure was performed with buried absorbable dermal sutures extending to the deepe r subcutaneous tissue and top nonabsorbable sutures. Ointment and bandages placed where needed. Wound care instructions given. Ordered: Exc Mal Les Scalp Neck Hand Feet 1.1-2.0cm 77560 Interm Repair Wounds Neck/Extrem/Gen 2.6 cm to 7.5 cm [id number]
--- OUTSIDE RECORDS SUMMARY | 2017-09-28 12:23 | External Medical Summary | Referral Summary ---
:1940 Author Organization [facility] Address [address] [place] [address] Care Team Providers Name Role Phone Montez Rose Primary Care Physician Encounter [facility] [id number] Date(s): 08/24/16 - 08/24/16 [facility] [address] [place] [address] [place] Discharge Diagnosis: Epidermal cyst Discharge Diagnosis: H/O squamous cell carcinoma of skin Discharge Diagnosis: AK (actinic keratosis) Discharge Diagnosis: SK (seborrheic keratosis) Discharge Disposition: 01-Home or Self Care Attending Physician: Anam Melo MD Admitting Physician: Anam Melo MD Referring Physician: Montez Rose MD Vital Signs No data available for this section Problem List Condition Effective Dates Status Health Status Informant Acute pain(Confirmed) Active At risk for infection(Confirmed)1 Active At risk of pressure sore(Confirmed) Active Bipolar disorder(Confirmed) Active patient Chronic anemia(Confirmed) Active patient Diabetes mellitus(Confirmed) Active patient GERD (gastroesophageal reflux Active patient disease)(Confirmed) Hyperlipidemia(Confirmed) Active patient Hypertension(Confirmed) Active patient Hypothyroidism(Confirmed) Active patient Impaired skin integrity(Confirmed)2 Active Knowledge deficit(Confirmed)3 Active Breast cancer(Confirmed) Active patient Shoulder pain(Confirmed) Active patient Tissue perfusion Active alteration(Confirmed)4 Tobacco user(Confirmed) Active patient 1Problem added automatically by system based on initiation of At Risk for Infection in Nutrition Planof [id number] added automatically by system based on initiation of Impaired Skin Integrity Plan of [id number] added automatically by system based on initiation of Knowledge Deficit Plan of [id number] added automatically by system based on initiation of Tissue Perfusion Cerebral Plan of Care Allergies, Adverse Reactions, Alerts Substance Reaction Severity Status amoxicillin unknown Active Augmentin Unknown Active penicillin unknown Severe Active patient couldn"t remember sulfamethoxazole depression Severe Active Unknown trifluoperazine unknown Active Medications acetaminophen 325 mg oral tablet 1-2 tabs, Oral, q4hr, Pain Mild (1-3), 0 Refill(s) Start Date: 07/03/16 Status: OrderedArtificial Tears 1 drops, Eye-Both, BID, 0 Refill(s) Start Date: 06/29/16 Status: Orderedascorbic acid 500 mg oral tablet 500 mg 1 tabs, Oral, Daily, 0 Refill(s) Start Date: 06/28/16 Status: OrderedColace 100 mg oral capsule 100 mg 1 caps, Oral, BID, 0 Refill(s) Start Date: 07/03/16 Status: OrderedCymbalta 20 mg, Oral, Bedtime (once a day), 0 Refill(s) Start Date: 11/29/15 Status: Orderedferrous sulfate 325 mg (65 mg elemental iron) oral delayed release tablet 325 mg 1 tabs, Oral, Daily, 0 Refill(s) Start Date: 06/28/16 Status: OrderedglipiZIDE 10 mg, Oral, Daily, 0 Refill(s) Start Date: 11/29/15 Status: OrderedglipiZIDE 5 mg, Oral, Daily, 0 Refill(s) Start Date: 06/29/16 Status: Orderedlisinopril 5 mg, Oral, Daily, 0 Refill(s) Start Date: 11/29/15 Status: Orderedloperamide 2 mg, Oral, Daily, 0 Refill(s) Start Date: 06/29/16 Status: OrderedmetFORMIN 500 mg oral tablet 500 mg 1 tabs, Oral, BID, 0 Refill(s) Start Date: 06/28/16 Status: OrderedMilk of Magnesia 2,400 mg 30 mL, Oral, Daily, Constipation, 0 Refill(s) Start Date: 07/03/16 Status: OrderedOLANZapine 7.5 mg, Oral, Bedtime (once a day), 0 Refill(s) Start Date: 06/29/16 Status: Orderedondansetron 2 mg/mL injectable solution 8 mg 4 mL, IV Push, Once, 0 Refill(s) Start Date: 06/29/16 Status: Orderedpotassium chloride 10 mEq oral tablet, extended release 10 mEq 1 tabs, Oral, Daily, 0 Refill(s) Start Date: 06/28/16 Status: OrderedSynthroid 137 mcg (0.137 mg) oral tablet 137 mcg 1 tabs, Oral, Daily, 0 Refill(s) Start Date: 09/01/14 Status: OrderedTherapeutic Multiple Vitamins with Minerals oral tablet, chewable 2 tabs, Oral, Daily, 0 Refill(s) Start Date: 09/01/14 Status: OrderedToprol-XL 50 mg, Oral, Daily, 0 Refill(s) Start Date: 06/29/16 Status: OrderedTresiba FlexTouch 10 units, SubCutaneous, Bedtime (once a day), 0 Refill(s) Start Date: 06/29/16 Status: Ordered Results No data available for this section Immunizations Given and Recorded Vaccine Date Status Refusal Reason influenza virus vaccine, live 05/20/13 Given Procedures Procedure Date Related Diagnosis Body Site Destruction (eg, laser surgery, electrosurgery, 08/24/16 cryosurgery, chemosurgery, surgical curettement), premalignant lesions (eg, actinic keratoses); first lesion Arthroplasty Shoulder Total Replacement (Left)1 06/29/16 Appendectomy Arthroplasty of shoulder2 Breast lumpectomy Cholecystectomy Cholecystectomy Hysterectomy and bilateral salpingo-oophorectomy sample Paracentesis Total knee replacement3 1auto-populated from documented surgical [id number] Social History Social History Type Response Smoking Status Former smoker Assessment and Plan Extracted from: Title: Office Visit Note Author: Anam Melo MD Date: 08/24/16 Assessment/Plan 1.Epidermal cyst Inflamed cyst on left abdomen, she will schedule 30 minute excision slot Ordered: Office Visit Level 3 Est 01747 2.AK (actinic keratosis) I froze one AK on right dorsal hand with liquid nitrogen for 7 seconds Ordered: Destruction premalignant lesion 1st 25894 3.SK (seborrheic keratosis) Reassurance Ordered: Office Visit Level 3 Est 68068 4.H/O squamous cell carcinoma of skin 6 monthdermatology exam or sooner as needed Ordered: Office Visit Level 3 Est 16313
--- OUTSIDE RECORDS SUMMARY | 2017-09-28 12:23 | External Medical Summary ---
:1940 Author Organization eClinicalWorks Care Team Providers Name Role Phone Ayah Zurita Provider Role Unavailable Allergies No Known Allergies Problems No Known Problems Medications No Known Medications Results No Known Results Summary Purpose eClinicalWorks Submission
--- OUTSIDE RECORDS SUMMARY | 2017-09-28 12:23 | External Medical Summary | Referral Summary ---
:1940 Author Organization [facility] Address [address] [place] [address] Care Team Providers Name Role Phone Montez Rose Primary Care Physician Encounter [facility] Date(s): 06/29/16 - 07/03/16 [facility] [address] [place] [address] Discharge Diagnosis: S/P joint implant Discharge Diagnosis: Prosthetic joint implant failure Discharge Disposition: 03-Detention Facility Attending Physician: Hernan Brush MD Admitting Physician: Hernan Brush MD Vital Signs Most recent to oldest [Reference Range]: 1 Temperature Oral [35.8-37.3 degC] 36.4 degC (07/03/16 12:00 PM) Temperature Skin [36-37 degC] 36.9 degC (06/29/16 12:05 PM) Temperature Temporal Artery [36.3-37.8 degC] 36.6 degC (06/29/16 5:45 PM) Peripheral Pulse Rate [60-100 bpm] 91 bpm (07/03/16 12:00 PM) Heart Rate Monitored [60-100 bpm] 77 bpm (07/02/16 3:00 AM) Respiratory Rate [14-20 br/min] 18 br/min (07/03/16 12:00 PM) Blood Pressure [90-140/60-90 mmHg] 188/87 mmHg *HI* (07/03/16 12:00 PM) Mean Arterial Pressure, Cuff 94 mmHg (06/29/16 5:45 PM) SpO2 95 % (07/03/16 12:00 PM) Problem List Condition Effective Dates Status Health [...] At Risk for Infection in Nutrition Planof [id number] added automatically by system based on initiation of Impaired Skin Integrity Plan of [id number] added automatically by system based on initiation of Knowledge Deficit Plan of [id number] added automatically by system based on initiation [...] day), 0 Refill(s) Start Date: 06/29/16 Status: OrderedUltram 50 mg oral tablet 50 mg 1 tabs, Oral, q6hr, Pain Moderate (4-6), not to exceed 400 mg/day; give with food to prevent nausea, # 30 tabs, 0 Refill(s) Start Date: 07/03/16 Stop Date: 08/02/16 Status: Ordered Results Hematology Most recent to oldest [Reference Range]: 1 WBC [4.8-10.8 10*3/uL] 9.8 10*3/uL (07/01/16 12:57 PM) RBC [4.00-5.20] 4.10 (07/01/16 12:57 PM) Hgb [12.0-16.0 gm/dL] 11.2 gm/dL *LOW* (07/01/16 12:57 PM) Hct [37.0-47.0 %] 35.4 % *LOW* (07/01/16 12:57 PM) MCV [82.0-99.0 fL] 86.3 fL (07/01/16 12:57 PM) MCH [27.0-32.0 pg] 27.3 pg (07/01/16:57 PM) MCHC [32.0-36.0 gm/dL] 31.6 gm/dL *LOW* (07/01/16 12:57 PM) RDW [11.5-14.5 %] 15.6 % *HI* (07/01/16 12:57 PM) Platelet [150-400 10*3/uL] 159 10*3/uL (07/01/16 12:57 PM) MPV [9.4-12.4 fL] 9.7 fL (07/01/16 12:57 PM) Chemistry Most recent to oldest [Reference Range]: 1 Sodium Lvl [136-144 mEq/L] 132 mEq/L *LOW* (07/01/16:57 PM) Potassium Lvl [3.6-5.1 mEq/L] 4.5 mEq/L (07/01/16 12:57 PM) Chloride [99-109 mEq/L] 97 mEq/L *LOW* (07/01/16 12:57 PM) CO2 [22-32 mEq/L] 28 mEq/L (07/01/16:57 PM) AGAP [3-20] 7 (07/01/16 12:57 PM) BUN [4-20 mg/dL] 14 mg/dL (07/01/16 12:57 PM) Glucose Lvl [70-100 mg/dL] 122 mg/dL *HI* (07/01/16 12:57 PM) Creatinine Lvl [0.44-1.03 mg/dL] 0.48 mg/dL (07/03/16 5:15 AM) eGFR [>60] >60 1 (07/03/16 5:15 AM) Calcium Lvl [8.6-10.0 mg/dL] 8.1 mg/dL *LOW* (07/01/16 12:57 PM) Blood Glucose, Capillary [74-106 mg/dL] 268 mg/dL *HI* (07/03/16 11:25 AM) 1Result Comment: Multiply eGFR results by 1.21 for race.Microbiology Reports TEST:Wound Culture and Smear STATUS:Auth (Verified) BODY SITE: SOURCE:Surgical-Wound COLLECTED DATE/TIME:06/29/16 1:54 PMWound CultureNo growthTEST:Acid Fast Bacilli Culture and Smear STATUS:Order in Progress BODY SITE: SOURCE:Surgical-Wound COLLECTED DATE/TIME:06/29/16 1:54 PMAcid Fast Bacilli Culture and Smear Culture in progressTEST:Anaerobic Culture STATUS:Auth (Verified) BODY SITE: SOURCE:Surgical-Wound COLLECTED DATE/TIME:06/29/16 1:54 PMAnaerobic CultureNo anaerobes isolatedTEST:Fungus Culture & Calcofluor White Stain STATUS:Order in Progress BODY SITE: SOURCE:Surgical-Wound COLLECTED DATE/TIME:06/29/16 1:54 PMFungus CultureCulture in progress Immunizations Vaccine Date Refusal Reason influenza virus vaccine, live 05/20/13 Procedures Procedure Date Related Diagnosis Body Site Arthroplasty Shoulder Total Replacement (Left)1 06/29/16 Appendectomy Arthroplasty of shoulder2 Breast lumpectomy Cholecystectomy Cholecystectomy Hysterectomy and bilateral salpingo-oophorectomy sample Paracentesis Total knee replacement3 1auto-populated from documented surgical [id number] Social History Social History Type Response Smoking Status Former smoker Assessment and Plan No data available for this section
--- OUTSIDE RECORDS SUMMARY | 2017-09-28 12:23 | External Medical Summary | Referral Summary ---
:1940 Author Organization [facility] Address [address] [place] [address] Care Team Providers Name Role Phone Montez Rose Primary Care Physician Encounter [facility] [id number] Date(s): 06/01/15 - 06/01/15 [facility] [address] [place] [address]- [place] Discharge Diagnosis: Squamous cell [...] on initiation of Knowledge Deficit Plan of [id number] added automatically by system based on initiation [...] Education Author: Anam Melo MD Date: 06/01/15 Family Medicine Squamous Cell Carcinoma Squamous cell carcinoma [...] a procedure done by a skin doctor (decorating supervisor or Mohs surgeon) in his or her [...] 02/17/2004 Document Revised: 12/28/2014 Document Reviewed: 05/06/2012 ExitCare Patient Information 2015 [employer], [facility]. This information is not intended to replace [...] Mal Les Scalp Neck Hand Feet 1.1-2.0cm 74383 Interm Repair Wounds Neck/Extrem/Gen 2.6 cm to 7.5 cm [id number]
--- OUTSIDE RECORDS SUMMARY | 2017-09-28 12:24 | External Medical Summary | Referral Summary ---
:1940 Author Organization [facility] Address [address] [place] [address] Care Team Providers Name Role Phone Montez Rose Primary Care Physician Encounter [facility] [id number] Date(s): 10/03/16 - 10/03/16 [facility] [address] [place] [address] [place] Discharge Diagnosis: Epidermal cyst Discharge Disposition: 01-Home or Self Care Attending [...] At Risk for Infection in Nutrition Planof [id number] added automatically by system based on initiation of Impaired Skin Integrity Plan of [id number] added automatically by system based on initiation of Knowledge Deficit Plan of [id number] added automatically by system based on initiation [...] Procedure Date Related Diagnosis Body Site Excision, benign lesion including margins, except 10/03/16 skin tag (unless listed elsewhere), trunk, arms or legs; excised diameter 1.1 to 2.0 cm Repair, intermediate, wounds of scalp, axillae, 10/03/16 trunk and/or extremities (excluding hands and feet); 2.6 cm to 7.5 cm Arthroplasty Shoulder Total Replacement (Left)1 06/29/16 Appendectomy Arthroplasty of shoulder2 Breast lumpectomy Cholecystectomy Cholecystectomy Hysterectomy and bilateral salpingo-oophorectomy sample Paracentesis Total knee replacement3 1auto-populated from documented surgical [id number] Social History Social History Type Response Smoking Status Former smoker Assessment and Plan Extracted from: Title: Office Visit Note Author: Anam Melo MD Date: 10/03/16 Assessment/Plan 1.Epidermal cyst Size 1.5 cm of inflamed cystand inflammatory tissue on the left lower abdomen. Intermediate layered closure with buried 4-0 Vicryl and top 4-0 Prolene with a final wound repair length of 4cm. Follow-up in 10 days for suture removal (or sutures can be removed at care facility)or as needed for any problems or concerns Options/risks/benefits of the procedure were discussed and explained and consent was obtained. Specifically discussed risks of scarring, abnormal scarring, skin changes such as color or texture ch anges, recurrence, incomplete removal, bleeding, infection, need for further treatment, and other unexpected risks/outcomes of these types of skin procedures. Final timeout performed. Site(s) for ex cision were prepared by cleaning and injecting each site with <5cc of buffered lidocaine with epi 1:100,000. Cyst(s) was excised with scalpel/ scissors/forceps in usual fashion to the level of the s ubcutaneous fat. Wound edges were undermined. Hemostasis was obtained with hyfrecation as needed. Layered closure was performed with buried absorbable dermal sutures extending to the deeper subcut aneous tissue and top nonabsorbable sutures. Ointment and bandages placed where needed. Wound care instructions given. Ordered: Exc Curt Les Trunk Arm Leg 1.1-2.0cm 86812 Intermediate Repair Wounds; Scalp Trunk Extremities 2.6-7.5cm [id number]
--- OUTSIDE RECORDS SUMMARY | 2017-09-28 12:24 | External Medical Summary | Referral Summary ---
:1940 Author Organization [facility] Address [address] [place] [address] Care Team Providers Name Role Phone Montez Rose Primary Care Physician Encounter [facility] [id number] Date(s): 11/29/15 - 11/29/15 [facility] [address] [place] [address]- [place] Discharge Diagnosis: History of squamous cell carcinoma of skin Discharge Diagnosis: Hypertrophic scar Discharge Diagnosis: Seborrheic keratoses Discharge Disposition: 01-Home or Self Care Attending [...] on initiation of Knowledge Deficit Plan of [id number] added automatically by system based on initiation [...] Procedures Procedure Date Related Diagnosis Body Site Injection, intralesional; up to and including 7 11/29/15 lesions Cholecystectomy Total knee replacement Social History Social History Type Response Smoking Status Former smoker Assessment and Plan Extracted from: Title: Ambulatory Patient Education Author: Anam Melo MD Date: 11/29/15 Family Medicine Seborrheic Keratosis Seborrheic keratosis is a common, noncancerous (benign) skin growth that can occur anywhere on the skin.It looks like "stuck-on," waxy, rough, barrett, brown, or black spots on the skin. These skin growth s can be flat or raised.They are often called "barnacles" because of their pasted-on appearance.Usually, these skin growths appear in adulthood, around age 30, and increase in number as you age. The y may also develop during or following estrogen therapy. Many people may only have one growth appear in their lifetime, while some people may develop many growths. CAUSES It is unknown what causes these skin growths, but they appear to run in families. SYMPTOMS Seborrheic keratosis is often located on the face, chest, shoulders, back, or other areas. These growths are: Usually painless, but may become irritated and itchy. Yellow, brown, black, or other colors. Slightly raised or have a flat surface. Sometimes rough or wart-like in texture. Often waxy on the surface. Round or oval-shaped. Sometimes "stuck-on" in appearance. Sometimes single, but there are usually many growths. Any growth that bleeds, itches on a regular basis, becomes inflamed, or becomes irritated needs to be evaluated by a older worker specialist (electrical fitter). DIAGNOSIS Diagnosis is mainly based on the way the growths appear. In some cases, it can be difficult to tell this type of skin growth from skin cancer. A skin growth tissue sample (biopsy) may be used to confirm the diagnosis. TREATMENT Most often, treatment is not needed because the skin growths are benign.If the skin growth is irritated easily by clothing or jewelry, causing it to scab or bleed, treatment may be recommended. Patien ts may also choose to have the growths removed because they do not like their appearance. Most commonly, these growths are treated with cryosurgery. In cryosurgery, liquid nitrogen is applied to "freeze" the growth. The growth usually falls off within a matter of days. A blister may form and dry into a scab that will also fall off. After the growth or scab falls off, it may leave a dark or light spot on the skin. This color may fade over time, or it may remain permanent on the skin. HOME CARE INSTRUCTIONS If the skin growths are treated with cryosurgery, the treated area needs to be kept clean with water and soap. SEEK MEDICAL CARE IF: You have questions about these growths or other skin problems. You develop new symptoms, including: A change in the appearance of the skin growth. New growths. Any bleeding, itching, or pain in the growths. A skin growth that looks similar to seborrheic keratosis. This information is not intended to replace advice given to you by your health care provider. Make sure you discuss any questions you have with your health care provider. Document Released: 09/15/2011 Document Revised: 11/04/2012 Document Reviewed: 09/15/2011 ExitCare Patient Information 2015 [employer]. No follow up information was provided. Extracted from: Title: Office Visit Note Author: Anam Melo MD Date: 11/29/15 Assessment/Plan 1.Hypertrophic scar There is a hypertrophic scar or small cyst or dermatofibromaat the scar line distal edgeon the right dorsal hand. We discussed diagnosis and options and risks and she opt ed for trial of Kenalog injection and I cleaned the site and injected 0.1 mL of Kenalog 10 into the site. If no improvement I can do a punch biopsy or removal as needed in the future for any persistence Discussed options/risks/benefits of intralesional kenalog injection. Specifically discussed risks of pain, bleeding, abscess, temporary or permanent skin texture or color changes (including changes at and remote to injection sites), scarring, lack of effect, need for further treatments, systemic effects of steroids, and other unexpected risks/outcomes of these types of skin procedures. Answered all questions and patient elected to proceed. Cleaned all sites. Injected 10mg/cc kenalog. Bandages places where needed. Ordered: Injection intralesional up to + includ 7 lesions [id number] Office Visit Level 3 Est 73115 2.Seborrheic keratoses Benign, reassurance. We discussed these benign lesions Ordered: Office Visit Level 3 Est 00199 3.History of squamous cell carcinoma of skin No evidence of recurrence. Follow-up in 6 months. I completed the progress note paperwork for her care facility today, as related to her visit today Ordered: Office Visit Level 3 Est 46906
--- OUTSIDE RECORDS SUMMARY | 2017-09-28 12:24 | External Medical Summary ---
:1940 Author Organization [employer] Care Team Providers Name Role Phone Varun Soto Provider Role Unavailable Allergies, Adverse Reactions, Alerts Substance Reaction Event Type Stelazine Info Not Available Non Drug Allergy Sulfa Info Not Available Non Drug Allergy Problems Problem Type Condition Code Onset Dates Condition Status Assessment Gastric polyps 211.1 Active Assessment Abdominal mass 789.30 Active Assessment Cirrhosis 571.5 Active Assessment Macrocytic anemia 281.9 Active Medications Medication Code Code Instructions Start End Date Status Dosage System Date Zyprexa [facility] 04535-60 5 MG Orally at 0.5 tablet 15-01 bedtime Ativan NDC 43505-89 0.5 MG Orally 1 tablet as 63-01 [place] [address]-07 40 MG Orally 1 tablet 60-13 [place] [address]-37 400 MG Orally 2 tablets 09-22 twice [place] [address]-44 20 MEQ Orally 1 tablet 58-01 [place] [address]-72 20 MG Orally 1 capsule 42-31 [place] [address]-53 100 MG Orally 2 tablet 92-05 [place] [address]-90 10 MG Orally at 1 tablet 17-01 [place] [address]-10 137 MCG Orally 1 tablet 27-13 [place] [address]-92 25 MG Orally at not defined 61-01 [place] [address]-36 as needed not defined 39-[place] [address]-46 1 MG Orally Once 3 capsule 26-01 a day MiraLax NDC 90092-16 Orally as 17 grams 34-02 needed Tylenol NDC 43044-51 325 MG Orally 1 tablet as 96-60 every 6 [place] [address]-45 30 MG Orally 1 capsule 40-01 [place] [address]-50 500 MG Orally 2 tablet 60-05 Twice a day with meals Ipratropium-Albu [facility] 66002-17 0.5-2.5 (3) 3 ml terol 23-73 MG/3ML Inhalation Four times a day as needed Procedures Procedure Coding System Code Date Office Visit, Est Pt., Level 3 CPT-4 47951 Oct 06, 2014 Vital Signs Date/Time: Oct 06, 2014 Blood Pressure Diastolic 84 mm Hg Blood Pressure Systolic 126 mm Hg Weight 196.2 lbs Respiratory Rate 16 /min Cardiac Monitoring Heart Rate 76 /min Results No Known Results Summary Purpose [employer] Submission
--- OUTSIDE RECORDS SUMMARY | 2017-09-28 12:24 | External Medical Summary | Continuity of Care Document ---
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 HELICOBACTER PYLORI - 03/11/14 18:30</th> </ tr> <tr> <td>Microbiology</td> &lt ;td> </td> <td /> </tr> <tr> <th colspan="10">GLUCOSE (POC) - 03/11/14 22:33</th& gt; </tr> <tr> <td>GLUCOSE (POC)</td> <td>196 mg/dL</td> <td>70-99</td> </tr> <tr> <th colspan="10"> HGB HCT - 03/12/14 00:08</th> </tr> <tr> <td>MEAN CELL VOLUME</td> <td>102.0 fl</td&gt ; <td>80.0-100.0</td></tr> <tr> <td>HEMOGLOBIN</td> <td>7.8 gm/dL</td> <td>12.0-16.0</td> </tr> <tr> <td>HEMATOCRIT</td> <td>26.0 %</td> <td>37.0-47.0</td> </tr> <tr> <th colspan="10">GLUCOSE (POC) - 07/17/14 06:24</th&gt ; </tr> <tr> <td>GLUCOSE (POC)</td& gt; <td>166 mg/dL</td> <td>70-99</td> </tr> <tr> <th colspan="10"> CBC W/MANUAL DIFF - 03/12/14 07:59</th> </tr> <tr& gt; <td>MEAN CELL HGB</td> <td>30.2 pg</ td> <td>27.0-33.0</td> </tr> <tr& gt; <td>MEAN CELL HGB CONCENTRATION</td> <td&gt ;29.4 g/dL</td> <td>32.0-37.0</td> </tr&gt ; <tr> <td>MEAN CELL VOLUME</td> < td>102.7 fl</td> <td>80.0-100.0</td> </ tr> <tr> <td>RED BLOOD CELL</td> & lt;td>2.58 m/cumm</td> <td>4.00-6.00</td> & lt;/tr> <tr> <td>RED CELL DISTRIBUTION WIDTH</ td> <td>24.2 %</td> <td>11.0-15.6 </td> </tr> <tr> <td>WHITE BLOOD CELL</td> <td>9.9 k/cumm</td> <td>5.0- 10.0</td> </tr> <tr> <td> HEMOGLOBIN</td> <td>7.8 gm/dL</td> <td&gt ;12.0-16.0</td> </tr> <tr> <td> HEMATOCRIT</td> <td>26.5 %</td> < td>37.0-47.0</td> </tr> <tr> <td& gt;PLATELET COUNT</td> <td>148 k/cumm</td> & lt;td>150-400</td> </tr> <tr> < th colspan="10">MANUAL DIFF(O) - 03/12/14 07:59</th> & lt;/tr> <tr> <td>BAND %</td> <td>1 %</td> <td>0-10</td> & lt;/tr> <tr> <td>EOSINOPHIL #</td> & lt;td>0.2 k/cumm</td> <td>0.1-0.5</td> < /tr> <tr> <td>EOSINOPHIL %</td> <td>2 %</td> <td>2-4</td> </tr> <tr> <td>GRANULOCYTE #</td> <td>8.5 k/cumm</td> <td>2.0-9.0</td> </tr> <tr> <td>LYMPHOCYTE #</td> <td>0.2 k/cumm</td> <td>1.0-4.0</td> & lt;/tr> <tr> <td>LYMPHOCYTE %</td> <td>2 %</td> <td>20-30</td> </tr> <tr> <td>DIFFERENTIAL</td> <td>MANUAL </td> <td /> </tr> <tr> <td>METAMYELOCYTE %</td> & lt;td>2 %</td> <td /> </tr> <tr> <td>MONOCYTE #</td> <td>0.8 k/ cumm</td> <td>0.1-1.0</td> </tr> <tr> <td>MONOCYTE %</td> <td>8 &# 37;</td> <td>4-6</td> </tr> < tr> <td>NUCLEATED RED BLOOD CELL</td> <td&gt ;3 /100 WBC</td> <td /> </tr> <tr&gt ; <td>OVALOCYTES</td> <td>NOTED </td> <td /> </tr> <tr> <td> POLYCHROMASIA</td> <td>MARKED </td> <td / > </tr> <tr> <td>SCHISTOCYTES</td&gt ; <td>NOTED </td> <td /> </tr> <tr> <td>SEGMENTED NEUTROPHIL %</td> <td>85 %</td> <td>50-70</td> </tr> <tr> <td>TEAR DROP CELLS</td& gt; <td>NOTED </td> <td /> </tr> <tr> <th colspan="10">HGB HCT - 03/12/14 07: 59</th> </tr> <tr> <td>MEAN CELL VOLUME</td> <td>102.3 fl</td> <td>80.0 -100.0</td> </tr> <tr> <td> HEMOGLOBIN</td> <td>7.8 gm/dL</td> <td&gt ;12.0-16.0</td> </tr> <tr> <td> HEMATOCRIT</td> <td>26.8 %</td> < td>37.0-47.0</td> </tr> <tr> < thcolspan="10">METABOLIC PANEL, BASIC - 03/12/14 07:59</th> </tr> <tr> <td>POTASSIUM</td> <td>4.2 mmol/L</td> <td>3.5-5.3</td> </tr&gt ; <tr> <td>EST GFR (MDRD)</td> <td >> 60 mL/min</td> <td>> 59</td> </tr> <tr> <td>ANION GAP</td> <td>6 mmol/L</td> <td>5-15</td> < /tr> <tr> <td>EST CrCl (CG)</td> & lt;td>50 mL/min</td> <td>> 59</td> & lt;/tr> <tr> <td>GLUCOSE</td> < td>155 mg/dL</td> <td>70-99</td> </tr&gt ; <tr> <td>CALCIUM</td> <td>8.2 mg/dL</td> <td>8.5-10.1</td> </tr> <tr> <td>BLOOD UREA NITROGEN</td> <td& gt;8 mg/dL</td> <td>7-20</td> </tr> <tr> <td>CREATININE</td> <td>0.8 mg/dL</td> <td>0.6-1.0</td> </tr> <tr> <td>SODIUM</td> <td>139 mmol/L& lt;/td> <td>135-148</td> </tr> <tr& gt; <td>CHLORIDE</td> <td>105 mmol/L</td& gt; <td>98-110</td> </tr> <tr> <td>CARBON DIOXIDE</td> <td>28 mmol/L</td> <td>21-32</td> </tr> <tr> <th colspan="10">IRON W/ BINDING CAPACITY - 03/12/14 07:59< /th> </tr> <tr> <td>IRON SATURATION& lt;/td> <td>5 % SAT</td> <td>11- 46</td> </tr> <tr> <td>IRON BINDING CAPACITY, TOTAL</td> <td>369mcg/dL</td> <td>250-450</td> </tr> <tr> <td&gt ;IRON</td> <td>20 mcg/dL</td> <td>35- 150</td> </tr> <tr> <th colspan=& quot;10">FERRITIN - 03/12/14 07:59</th> </tr> <tr> <td>FERRITIN</td> <td>30 ng/mL</td&gt ; <td>8-252</td> </tr> <tr> <th colspan="10">ALPHA 1 ANTITRYPSIN - 03/12/14 07:59</ th></tr> <tr> <td>ALPHA 1 ANTITRYPSIN</ td> <td>206 mg/dL</td> <td>90-200</td& gt; </tr> <tr> <th colspan="10"> CERULOPLASMIN - 03/12/14 07:59</th> </tr> <tr> <td>CERULOPLASMIN</td> <td>39.8 mg/dL</td> <td>16.0-45.0</td> </tr> <tr> <th colspan="10">IMMUNOGLOB QUANT G,A,M - 03/12/14 07:59</th& gt; </tr> <tr> <td>IMMUNOGLOBULIN A< /td> <td>202 mg/dL</td> <td>70-400</td > </tr> <tr> <td>IMMUNOGLOBULIN G&lt ;/td> <td>540 mg/dL</td> <td>700-1600< /td> </tr> <tr> <td>IMMUNOGLOBULIN M </td> <td>34 mg/dL</td> <td>40-230< /td> </tr> <tr> <th colspan="10& quot;>HEPATITIS PANEL-ACUTE - 03/12/14 07:59</th> </tr> <tr> <td>AB HEPATITIS A IGM</td> < td>NEGATIVE </td> <td>NEGATIVE</td> </tr> <tr> <td>AG HEPATITIS B SURF.</td> & lt;td>NEGATIVE </td> <td>NEGATIVE</td> </ tr> <tr> <td>AB HEPATITIS B CORE IGM</td> <td>NEGATIVE </td> <td>NEGATIVE</td> </tr> <tr> <td>AB HEPATITIS C</td&gt ; <td>NEGATIVE </td> <td>NEGATIVE</td&gt ; </tr> <tr> <th colspan="10"&gt ;AB ANTI NUCLEAR - 03/12/14 07:59</th> </tr> <tr&gt ; <td>ABDULAZIZ</td> <td>NEGATIVE </td> <td>Negative</td> </tr> <tr> & lt;th colspan="10">AB ANTI MITOCHONDRIAL -03/12/14 07:59</th&gt ; </tr> <tr> <td>AMA</td> &lt ;td>5.7 Units</td> <td>0.0-20.0</td> </ tr><tr> <th colspan="10">TRANSGLUTAMINASE AB IGA - 03/12/14 07:59</th> </tr> <tr> & lt;td>TRANSGLUTAMINASE AB IGA</td> <td><2 U/mL</td&gt ; <td>0-3</td> </tr> <tr> <th colspan="10">LIVER KIDNEY MICRO AB - 03/12/14 08:00</ th> </tr> <tr> <td>LIVER KIDNEY MICRO AB</td> <td>2.1 Units</td> <td> 0.0-20.0</td> </tr> <tr> <th colspan ="10">AB ANTI SMOOTH MUSCLE - 03/12/14 08:00</th> </tr&gt ; <tr> <td>ASMA</td> <td>5 Units</td> <td>0-19</td> </tr> & lt;tr> <th colspan="10">GLUCOSE (POC) - 03/12/14 10: 18</th> </tr> <tr> <td>GLUCOSE (POC)< /td> <td>163 mg/dL</td> <td>70-99</td& gt; </tr> <tr> <th colspan="10"& gt;HGB HCT - 03/12/14 12:22</th> </tr> <tr> <td>MEAN CELL VOLUME</td> <td>99.0 fl</td& gt; <td>80.0-100.0</td> </tr> <tr&gt ; <td>HEMOGLOBIN</td> <td>8.4 gm/dL</td& gt; <td>12.0-16.0</td> </tr> <tr&gt ; <td>HEMATOCRIT</td> <td>28.6 %< /td> <td>37.0-47.0</td> </tr> <tr > <th colspan="10">GLUCOSE (POC)- 03/12/14 14:54< /th> </tr> <tr> <td>GLUCOSE (POC)&lt ;/td> <td>152 mg/dL</td> <td>70-99</td > </tr> <tr> <th colspan="10" >HGB HCT - 03/12/14 18:05</th> </tr> <tr> <td>MEAN CELL VOLUME</td> <td>103.4 fl</td& gt; <td>80.0-100.0</td> </tr> <tr&gt ; <td>HEMOGLOBIN</td> <td>7.9 gm/dL</td> <td>12.0-16.0</td> </tr> <tr> <td>HEMATOCRIT</td> <td>27.0 %</td> <td>37.0-47.0</td> </tr> <tr> <th colspan="10">GLUCOSE (POC) - 03/12/14 20:24</th> </tr> <tr> <td>GLUCOSE (POC)</td> <td>222 mg/dL</td> <td>70-99</td> </tr> <tr><th colspan="10">FLUID CYTOLOGY - 03/13/14 00:00</th> </tr> <tr> < td>FLUID CYTOLOGY</td> <td>SPECIMEN RECEIVED </td&gt ; <td /> </tr> <tr> <th colspan="10">FLUID CELL CT/DIFF - 03/13/14 00:00</th> </tr> <tr> <td>FLUID APPEARANCE-UNCENTRIFUGED& lt;/td> <td>CLEAR </td> <td>NOT DEFINED& lt;/td> </tr> <tr> <td>FLUID COLOR& lt;/td> <td>PALE YELLOW </td> <td>NOT DEFINED</td> </tr> <tr> <td> FLUID LYMPH</td> <td>44 %</td> < td>NOT DEFINED</td> </tr> <tr> < td>FLUID MONO</td> <td>47 %</td> <td>NOT DEFINED</td> </tr> <tr> & lt;td>FLUID RBC</td> <td>< 3000 #/cumm</td&gt ; <td>NOT DEFINED</td> </tr> <tr> <td>FLUID SEG</td> <td>9 %</td& gt; <td>NOT DEFINED</td> </tr> <tr&gt ; <td>FLUID TUBE #</td> <td>[place] </td& gt; <td /> </tr> <tr> <td> FLUID VOLUME</td> <td>57.0 mL</td> <td /> </tr> <tr> <td>FLUID WBC</td> <td>245 #/cumm</td> <td>NOT DEFINED</td> </tr> <tr> <th colspan="10"> PERITONEAL FLUID PROTEIN - 03/13/14 00:00</th> </tr> & lt;tr> <td>PERITONEAL FLUID PROTEIN</td> <td& gt;< 2.0 gm/dL</td> <td>NOT DEFINED</td> </tr> <tr> <th colspan="10"> PERITONEAL FLUID ALBUMIN - 03/13/14 00:00</th> </tr> & lt;tr> <td>PERITONEAL FLUID ALBUMIN</td> <td >< 0.6 gm/dL</td> <td>NOT DEFINED</td> </tr> <tr> <th colspan="10"> GRAM STAIN - 03/13/14 00:00</th> </tr> <tr> <td>Microbiology</td> <td> </td> &lt ;td /> </tr> <tr> <th colspan="10& quot;>METABOLIC PANEL, [facility] - 03/13/14 04:47</th> </tr&gt ; <tr> <td>POTASSIUM</td> <td> 4.7 mmol/L</td> <td>3.5-5.3</td> </tr> <tr> <td>EST GFR(MDRD)</td> <td>& amp;gt; 60 mL/min</td> <td>> 59</td> & lt;/tr> <tr> <td>ANION GAP</td> & lt;td>8 mmol/L</td> <td>5-15</td> </tr& gt; <tr> <td>EST CrCl (CG)</td> <td> 50 mL/min</td> <td>> 59</td> </tr&gt ; <tr> <td>GLUCOSE</td> <td>126 mg/dL& lt;/td> <td>70-99</td> </tr> <tr& gt; <td>CALCIUM</td> <td>7.6 mg/dL</td&gt ; <td>8.5-10.1</td> </tr> <tr> <td>BLOOD UREA NITROGEN</td> <td>7 mg/dL</ td> <td>7-20</td> </tr> <tr> <td>CREATININE</td> <td>0.8 mg/dL</td> <td>0.6-1.0</td> </tr> <tr> & lt;td>SODIUM</td> <td>136 mmol/L</td> &lt ;td>135-148</td> </tr> <tr> <td& gt;CHLORIDE</td> <td>106 mmol/L</td> <td& gt;98-110</td> </tr> <tr> <td>AST /SGOT</td> <td>44 Units/L</td> <td>10- 37</td> </tr> <tr> <td>ALT/SGPT& lt;/td> <td>33 Units/L</td> <td>< 66</td> </tr> <tr> <td>CARBON DIOXIDE</td> <td>22 mmol/L</td> <td>21 -32</td> </tr> <tr> <td>TOTAL PROTEIN</td> <td>5.7 gm/dL</td> <td> 6.4-8.2</td> </tr> <tr> <td>ALBUMIN& lt;/td> <td>2.5 gm/dL</td> <td>3.4-5.0&lt ;/td> </tr> <tr> <td>BILI TOTAL</ td> <td>0.8 mg/dL</td> <td>0.0-1.0</td > </tr> <tr> <td>ALKALINE PHOSPHATASE TOTAL</td> <td>149 IU/L</td> <td >45-117</td> </tr> <tr> <th colspan="10">CBC W/DIFF - 03/13/14 04:47</th> </tr& gt; <tr> <td>EOSINOPHIL #</td> <td >0.3 k/cumm</td> <td>0.1-0.5</td> </tr& gt; <tr> <td>EOSINOPHIL %</td> &lt ;td>4 %</td> <td>2-4</td> </tr& gt; <tr> <td>GRANULOCYTE #</td> < td>6.4 k/cumm</td> <td>2.0-9.0</td> </tr> <tr> <td>LYMPHOCYTE #</td> <td> 0.7 k/cumm</td> <td>1.0-4.0</td> </tr> <tr> <td>LYMPHOCYTE %</td> & lt;td>9 %</td> <td>20-30</td> </ tr> <tr> <td>MEAN CELL HGB</td> & lt;td>30.2 pg</td> <td>27.0-33.0</td> </ tr> <tr> <td>MEAN CELL HGB CONCENTRATION</td& gt; <td>28.9 g/dL</td> <td>32.0-37.0</td& gt; </tr> <tr> <td>MEAN CELL VOLUME< /td> <td>104.5 fl</td> <td>80.0-100.0< /td> </tr> <tr> <td>MONOCYTE #</ td> <td>0.5 k/cumm</td> <td>0.1-1.0</ td> </tr> <tr> <td>MONOCYTE % </td> <td>6 %</td> <td>4-6< /td> </tr> <tr> <td>NUCLEATED RED BLOOD CELL</td> <td>1 /100 WBC</td> <td /> &lt ;/tr> <tr> <td>POLYCHROMASIA</td> <td& gt;NOTED </td> <td /> </tr> <tr> <td>RED BLOOD CELL</td> <td>2.65 m/cumm< /td> <td>4.00-6.00</td> </tr> <tr > <td>RED CELL DISTRIBUTION WIDTH</td> <td& gt;23.4 %</td> <td>11.0-15.6</td></tr> <tr> <td>SPHEROCYTES</td> <td> NOTED </td> <td /> </tr> <tr> <td>TEAR DROP CELLS</td> <td>NOTED </td&gt ; <td /> </tr> <tr> <td> WHITE BLOOD CELL</td> <td>8.2 k/cumm</td> <td&gt ;5.0-10.0</td> </tr> <tr> <td> HEMOGLOBIN</td> <td>8.0 gm/dL</td> <td&gt ;12.0-16.0</td> </tr> <tr> <td> HEMATOCRIT</td> <td>27.7 %</td> < td>37.0-47.0</td> </tr> <tr> <td& gt;PLATELET COUNT</td> <td>145 k/cumm</td> & lt;td>150-400</td> </tr> <tr> < th colspan="10">MANUAL DIFF(R) - 03/13/14 04:47</th> & lt;/tr> <tr> <td>BAND %</td> <td>1 %</td> <td>0-10</td> & lt;/tr> <tr> <td>DIFFERENTIAL</td> <td>MANUAL </td> <td /> </tr> & lt;tr> <td>METAMYELOCYTE %</td> <td& gt;3 %</td> <td /> </tr> <tr& gt; <td>SEGMENTED NEUTROPHIL %</td> <td >77 %</td> <td>50-70</td> </tr& gt; <tr> <th colspan="10">GLUCOSE (POC) - 03/13/14 05:35</th> </tr> <tr> <td>GLUCOSE (POC)& lt;/td> <td>159 mg/dL</td> <td>70-99</td&gt ; </tr> <tr> <th colspan="10"&gt ;GLUCOSE (POC) - 03/13/14 10:29</th> </tr> <tr> <td>GLUCOSE (POC)</td> <td>214 mg/dL</td > <td>70-99</td> </tr> <tr> <th colspan="10">GLUCOSE (POC) -03/13/14 14:47</th&gt ; </tr> <tr> <td>GLUCOSE (POC)</td& gt; <td>143 mg/dL</td> <td>70-99</td> </tr> <tr> <th colspan="10"> GLUCOSE (POC) - 03/13/14 20:55</th> </tr> <tr> <td>GLUCOSE (POC)</td> <td>174 mg/dL</td& gt; <td>70-99</td> </tr> <tr> & lt;th colspan="10">CBC W/DIFF - 03/14/14 05:07</th> & lt;/tr> <tr> <td>BASOPHIL #</td> & lt;td>0.1 k/cumm</td><td>0.0-0.2</td> </tr> <tr> <td>BASOPHIL %</td> < td>1 %</td> <td>0-1</td> </tr&gt ; <tr> <td>EOSINOPHIL #</td> <td& gt;0.3 k/cumm</td> <td>0.1-0.5</td> </tr&gt ; <tr> <td>EOSINOPHIL %</td> <td>4 %</td> <td>2-4</td> </ tr> <tr> <td>GRANULOCYTE #</td> & lt;td>5.5 k/cumm</td> <td>2.0-9.0</td> < /tr> <tr> <td>GRANULOCYTE %</td> <td>74 %</td> <td>50-75</td> </tr> <tr> <td>LYMPHOCYTE#</td> <td>0.6 k/cumm</td> <td>1.0-4.0</td> </tr> <tr> <td>LYMPHOCYTE %</td& gt; <td>9 %</td> <td>20-30</td&gt ; </tr> <tr> <td>MEAN CELL HGB</td> <td>29.7 pg</td> <td>27.0-33.0</td> </tr> <tr> <td>MEAN CELL HGB CONCENTRATION< /td> <td>29.0 g/dL</td> <td>32.0-37.0< /td> </tr> <tr> <td>MEAN CELL VOLUME </td> <td>102.4 fl</td> <td>80.0-100.0 </td> </tr> <tr> <td>MONOCYTE #& lt;/td> <td>0.9 k/cumm</td> <td>0.1-1.0& lt;/td> </tr> <tr> <td>MONOCYTE &amp ;#37;</td> <td>12 %</td> <td>4 -6</td> </tr> <tr> <td> POLYCHROMASIA</td> <td>NOTED </td> <td /& gt; </tr> <tr> <td>RED BLOOD CELL</ td> <td>2.90 m/cumm</td> <td>4.00-6.00&lt ;/td> </tr> <tr> <td>RED CELL DISTRIBUTION WIDTH</td> <td>21.4 %</td> <td>11.0-15.6</td> </tr> <tr> <td>SPHEROCYTES</td> <td>NOTED </td> <td /> </tr> <tr> <td>TEAR DROP CELLS</td> <td>NOTED </td> <td /> </tr> <tr> <td>WHITE BLOOD CELL</td > <td>7.4 k/cumm</td> <td>5.0-10.0</td > </tr> <tr> <td>HEMOGLOBIN</td& gt; <td>8.6 gm/dL</td> <td>12.0-16.0</td& gt; </tr> <tr> <td>HEMATOCRIT</td&gt ; <td>29.7 %</td> <td>37.0-47.0</ td> </tr> <tr> <td>PLATELET COUNT&lt ;/td> <td>144 k/cumm</td> <td>150-400< /td> </tr> <tr> <th colspan="10" >METABOLIC PANEL, [facility]PRE[facility] - 03/14/14 05:07</th></tr> < tr> <td>POTASSIUM</td> <td>4.7 mmol/L< /td> <td>3.5-5.3</td> </tr> <tr& gt; <td>EST GFR (MDRD)</td> <td>> 60 mL/min</td> <td>> 59</td> </tr> <tr> <td>ANION GAP</td> <td>6 mmol/L& lt;/td> <td>5-15</td> </tr> <tr& gt; <td>EST CrCl (CG)</td> <td>> 60 mL/min</td> <td>> 59</td> </tr> <tr> <td>GLUCOSE</td> <td>164 mg/dL </td> <td>70-99</td> </tr> <tr > <td>CALCIUM</td> <td>8.6 mg/dL</td& gt; <td>8.5-10.1</td> </tr> <tr> <td>BLOOD UREA NITROGEN</td> <td>6 mg/dL&lt ;/td> <td>7-20</td> </tr> <tr> <td>CREATININE</td> <td>0.6 mg/dL</td&gt ; <td>0.6-1.0</td> </tr> <tr> <td>SODIUM</td> <td>136 mmol/L</td> <td>135-148</td> </tr> <tr> <td>CHLORIDE</td> <td>105 mmol/L</td> <td>98-110</td> </tr> <tr> <td> AST/SGOT</td> <td>57 Units/L</td> <td> 10-37</td> </tr> <tr> <td>ALT/ SGPT</td> <td>34 Units/L</td> <td>&amp ;lt; 66</td> </tr> <tr> <td> CARBON DIOXIDE</td> <td>25 mmol/L</td> < td>21-32</td> </tr> <tr> <td> TOTAL PROTEIN</td> <td>6.1 gm/dL</td> <td >6.4-8.2</td> </tr> <tr> <td> ALBUMIN</td> <td>2.6 gm/dL</td> <td>3.4-5.0& lt;/td> </tr> <tr> <td>BILI TOTAL&lt ;/td> <td>0.9 mg/dL</td> <td>0.0-1.0</ td> </tr> <tr> <td>ALKALINE PHOSPHATASE TOTAL</td> <td>171 IU/L</td> &lt ;td>45-117</td> </tr> <tr><th colspan=& quot;10">GLUCOSE (POC) - 03/14/14 05:47</th> </tr>&lt ;tr> <td>GLUCOSE (POC)</td> <td>168 mg/dL </td> <td>70-99</td> </tr> <tr> <th colspan="10">GLUCOSE (POC) - 03/14/14 10:05</th& gt; </tr> <tr> <td>GLUCOSE (POC)</td > <td>194 mg/dL</td> <td>70-99</td&gt ; </tr> <tr> <th colspan="10"&gt ;GLUCOSE (POC) - 03/14/14 14:29</th> </tr> <tr> <td>GLUCOSE (POC)</td> <td>191 mg/dL</td > <td>70-99</td> </tr> <tr> <th colspan="10">GLUCOSE (POC) - 03/14/14 20:49</th&gt ; </tr> <tr> <td>GLUCOSE (POC)</td&gt ; <td>171 mg/dL</td> <td>70-99</td> </tr> <tr> <th colspan="10">CBC W/DIFF - 03/15/14 05:31</th> </tr> <tr> <td >EOSINOPHIL #</td> <td>0.4 k/cumm</td> <td> 0.1-0.5</td> </tr> <tr> <td> EOSINOPHIL %</td> <td>7 %</td> <td>2-4</td> </tr> <tr> < td>GRANULOCYTE #</td> <td>3.8 k/cumm</td> <td>2.0-9.0</td> </tr> <tr> &lt ;td>GRANULOCYTE %</td> <td>68 %</td& gt; <td>50-75</td> </tr> <tr> <td>LYMPHOCYTE #</td> <td>0.7 k/cumm</td> <td>1.0-4.0</td> </tr><tr> <td >LYMPHOCYTE %</td> <td>13 %</td> <td>20-30</td> </tr> <tr> <td>MEANCELL HGB</td> <td>29.2 pg</td> <td>27.0-33.0</td> </tr> <tr> & lt;td>MEAN CELL HGB CONCENTRATION</td><td>29.6 g/dL</td> <td>32.0-37.0</td> </tr> <tr> <td>MEAN CELL VOLUME</td> <td>98.6 fl</td&gt ;<td>80.0-100.0</td> </tr> <tr> & lt;td>MONOCYTE #</td> <td>0.6 k/cumm</td> <td>0.1-1.0</td> </tr> <tr> &lt ;td>MONOCYTE %</td> <td>11 %</td> <td>4-6</td> </tr> <tr> <td>OVALOCYTES</td> <td>NOTED </td> <td /> </tr> <tr> <td> POLYCHROMASIA</td> <td>NOTED </td> <td /& gt; </tr> <tr> <td>RED BLOOD CELL</ td> <td>2.91 m/cumm</td> <td>4.00-6.00&lt ;/td> </tr> <tr> <td>RED CELL DISTRIBUTION WIDTH</td> <td>20.0 %</td> <td>11.0-15.6</td> </tr> <tr> <td>SPHEROCYTES</td> <td>NOTED </td> <td /> </tr> <tr> <td>WHITE BLOOD CELL</td> <td>5.6 k/cumm</td> <td& gt;5.0-10.0</td> </tr> <tr> <td> HEMOGLOBIN</td> <td>8.5 gm/dL</td> <td&gt ;12.0-16.0</td> </tr> <tr> <td> HEMATOCRIT</td> <td>28.7 %</td> <td&gt ;37.0-47.0</td> </tr> <tr> <td> PLATELET COUNT</td> <td>150 k/cumm</td> < td>150-400</td> </tr> <tr> <th colspan="10">METABOLIC PANEL, [facility] - 03/15/14 05:31</th> </tr> <tr> <td>POTASSIUM</td> <td>4.3 mmol/L</td> <td>3.5-5.3</td> </tr> <tr> <td>EST GFR (MDRD)</td&gt ; <td>> 60 mL/min</td> <td>> 59</td> </tr> <tr> <td>ANION GAP</ td> <td>7 mmol/L</td> <td>5-15</td&gt ; </tr> <tr> <td>EST CrCl (CG)</td& gt; <td>> 60 mL/min</td> <td>&gt ; 59</td> </tr> <tr> <td>GLUCOSE& lt;/td><td>153 mg/dL</td> <td>70-99</td> </tr> <tr> <td>CALCIUM</td> <td>8.5 mg/dL</td> <td>8.5-10.1</td> </tr> <tr> <td>BLOOD UREA NITROGEN</td> <td>7 mg/dL</td> <td>7-20</td> </tr> <tr> <td>CREATININE</td> &lt ;td>0.6 mg/dL</td> <td>0.6-1.0</td> </tr> <tr> <td>SODIUM</td> <td>137 mmol/L</td> <td>135-148</td> </tr> <tr> <td>CHLORIDE</td> <td>104 mmol /L</td> <td>98-110</td> </tr> < tr> <td>AST/SGOT</td> <td>36 Units/L</ td> <td>10-37</td> </tr> <tr> <td>ALT/SGPT</td> <td>33 Units/L</td&gt ; <td>< 66</td> </tr> <tr&gt ; <td>CARBON DIOXIDE</td> <td>26 mmol/L</ td> <td>21-32</td> </tr> <tr> <td>TOTAL PROTEIN</td> <td>6.1 gm/dL</td > <td>6.4-8.2</td> </tr> <tr> <td>ALBUMIN</td> <td>2.6 gm/dL</td> <td>3.4-5.0</td> </tr> <tr> & lt;td>BILI TOTAL</td> <td>0.7 mg/dL</td> <td>0.0-1.0</td> </tr> <tr> < td>ALKALINE PHOSPHATASE TOTAL</td> <td>176 IU/L</td& gt; <td>45-117</td> </tr> <tr> <th colspan="10">GLUCOSE (POC) - 03/15/14 06:12</th> </tr> <tr> <td>GLUCOSE (POC)</td> <td>157 mg/dL</td> <td>70-99</td> </tr> <tr> <th colspan="10"> GLUCOSE (POC)- 03/15/14 10:13</th> </tr> <tr> <td>GLUCOSE (POC)</td> <td>181 mg/dL</td& gt; <td>70-99</td> </tr> <tr> <th colspan="10">GLUCOSE (POC) - 03/15/14 14:28</th&gt ; </tr> <tr> <td>GLUCOSE (POC)</td& gt; <td>149 mg/dL</td> <td>70-99</td> </tr> <tr> <th colspan="10"> GLUCOSE (POC) - 03/15/14 20:57</th> </tr> <tr> <td>GLUCOSE (POC)</td> <td>171 mg/dL</td> <td>70-99</td> </tr> <tr> <th colspan="10">CBC W/DIFF - 03/16/14 04:38</th> & lt;/tr> <tr> <td>BASOPHIL #</td> & lt;td>0.0 k/cumm</td> <td>0.0-0.2</td> < /tr> <tr> <td>BASOPHIL %</td><td >1 %</td> <td>0-1</td> </tr> <tr> <td>COMMENT</td> <td> REVIEWED </td> <td /> </tr> <tr> <td>EOSINOPHIL #</td> <td>0.3 k/cumm</td > <td>0.1-0.5</td> </tr> <tr> <td>EOSINOPHIL %</td> <td>6 %&lt ;/td> <td>2-4</td> </tr> <tr> <td>GRANULOCYTE #</td> <td>3.7 k/cumm</ td> <td>2.0-9.0</td> </tr> <tr> <td>GRANULOCYTE %</td> <td>69 & #37;</td> <td>50-75</td> </tr> & lt;tr> <td>LYMPHOCYTE #</td> <td>0.6 k/ cumm</td> <td>1.0-4.0</td> </tr> <tr> <td>LYMPHOCYTE %</td><td>11 &# 37;</td> <td>20-30</td> </tr> &lt ;tr> <td>MEAN CELL HGB</td> <td>29.1 pg& lt;/td> <td>27.0-33.0</td> </tr> &lt ;tr> <td>MEAN CELL HGB CONCENTRATION</td> < td>30.3 g/dL</td> <td>32.0-37.0</td> </tr > <tr> <td>MEAN CELL VOLUME</td> & lt;td>96.1 fl</td> <td>80.0-100.0</td> < /tr> <tr> <td>MONOCYTE #</td> <td& gt;0.8 k/cumm</td> <td>0.1-1.0</td> </tr&gt ; <tr> <td>MONOCYTE %</td> & lt;td>14 %</td> <td>4-6</td> </ tr> <tr> <td>POLYCHROMASIA</td> <td >NOTED </td> <td /> </tr> <tr> <td>RED BLOOD CELL</td> <td>2.82 m/cumm</td> <td>4.00-6.00</td> </tr> <tr> <td>RED CELL DISTRIBUTION WIDTH</td> <td>19.4 & amp;#37;</td> <td>11.0-15.6</td> </tr> <tr> <td>SPHEROCYTES</td> <td>NOTED & lt;/td> <td /> </tr> <tr> <td& gt;WHITE BLOOD CELL</td> <td>5.4k/cumm</td> <td>5.0-10.0</td> </tr> <tr> <td> HEMOGLOBIN</td> <td>8.2 gm/dL</td> <td&gt ;12.0-16.0</td> </tr> <tr> <td> HEMATOCRIT</td> <td>27.1 %</td> < td>37.0-47.0</td> </tr><tr> <td> PLATELET COUNT</td> <td>150 k/cumm</td> <td&gt ;150-400</td> </tr> <tr> <th colspan ="10">MORPHOLOGY - 03/16/14 04:38</th> </tr> <tr> <td>RBC MORPH</td> <td>Note </td> <td /> </tr> <tr> <th colspan="10">METABOLIC PANEL, [facility]PRE[facility] - 03/16/14 04:38</ th> </tr> <tr> <td>POTASSIUM</td& gt; <td>4.0 mmol/L</td> <td>3.5-5.3</td> </tr> <tr> <td>EST GFR (MDRD)</td> <td>> 60 mL/min</td> <td>> 59< /td> </tr> <tr> <td>ANION GAP</td > <td>11 mmol/L</td> <td>5-15</td> </tr> <tr> <td>EST CrCl (CG)</td&gt ; <td>>60 mL/min</td> <td>> 59 </td> </tr> <tr> <td>GLUCOSE</td > <td>151 mg/dL</td> <td>70-99</td&gt ; </tr> <tr> <td>CALCIUM</td> <td>8.9 mg/dL</td> <td>8.5-10.1</td> </tr> <tr> <td>BLOOD UREA NITROGEN</td > <td>9 mg/dL</td> <td>7-20</td> </tr> <tr> <td>CREATININE</td> <td>0.5 mg/dL</td> <td>0.6-1.0</td> </tr> <tr> <td>SODIUM</td> <td >138 mmol/L</td><td>135-148</td> </tr> <tr> <td>CHLORIDE</td> <td>102 mmol/L& lt;/td> <td>98-110</td> </tr> <tr& gt; <td>AST/SGOT</td> <td>31 Units/L</td& gt; <td>10-37</td> </tr> <tr> <td>ALT/SGPT</td> <td>30 Units/L</td> <td>< 66</td> </tr> <tr> <td>CARBON DIOXIDE</td> <td>25 mmol/L</td> <td>21-32</td> </tr> <tr> <td>TOTAL PROTEIN</td> <td>5.8 gm/dL</td> <td>6.4-8.2</td> </tr> <tr> <td>ALBUMIN</td> <td>2.5 gm/dL</td> <td>3.4-5.0</td> </tr> <tr> <td> BILI TOTAL</td> <td>0.6 mg/dL</td> <td&gt ;0.0-1.0</td> </tr> <tr> <td> ALKALINE PHOSPHATASE TOTAL</td> <td>173 IU/L</td> <td>45-117</td> </tr> <tr> &lt ;th colspan="10">GLUCOSE (POC) - 03/16/14 05:39</th> < /tr> <tr> <td>GLUCOSE (POC)</td> & lt;td>168 mg/dL</td> <td>70-99</td> </tr > <tr> <th colspan="10">GLUCOSE (POC) - 03/16/14 10:48</th> </tr> <tr> <td >GLUCOSE (POC)</td> <td>176 mg/dL</td> <td> 70-99</td> </tr> <tr> <th colspan=& quot;10">CBC - 12/29/14 10:18</th> </tr> < tr> <td>MEAN CELL HGB</td> <td>25.3 pg&lt ;/td> <td>27.0-33.0</td> </tr> <tr&gt ; <td>MEAN CELL HGB CONCENTRATION</td> <td> 32.4 g/dL</td> <td>32.0-37.0</td> </tr> <tr> <td>MEAN CELL VOLUME</td> < td>78.2 fl</td> <td>80.0-100.0</td> </tr > <tr> <td>RED BLOOD CELL</td> &lt ;td>5.37 m/cumm</td> <td>4.00-6.00</td></tr&gt ; <tr> <td>RED CELL DISTRIBUTION WIDTH</td> <td>15.6 %</td> <td>11.0-15.6</td& gt; </tr> <tr> <td>WHITE BLOOD CELL< /td> <td>7.8 k/cumm</td> <td>5.0-10.0</td&gt ; </tr> <tr> <td>HEMOGLOBIN</td> <td>13.6 gm/dL</td> <td>12.0-16.0</td&gt ; </tr> <tr> <td>HEMATOCRIT</td> <td>42.0 %</td> <td>37.0-47.0</ td> </tr> <tr> <td>PLATELET COUNT&lt ;/td> <td>219 k/cumm</td> <td>150-400< /td> </tr> <tr> <th colspan="10& quot;>METABOLICPANEL, BASIC - 12/29/14 10:18</th> </tr> <tr> <td>POTASSIUM</td> <td>3.7 mmol/L</td> <td>3.5-5.3</td> </tr> < tr> <td>EST GFR (MDRD)</td> <td>> 60 mL/min</td> <td>> 59</td> </tr&gt ; <tr> <td>ANION GAP</td> <td> 10 mmol/L</td> <td>5-15</td> </tr> <tr> <td>GLUCOSE</td><td>263 mg/dL</td&gt ; <td>70-99</td> </tr> <tr> <td>CALCIUM</td> <td>9.6 mg/dL</td> <td>8.5-10.1</td> </tr> <tr> <td>BLOOD UREA NITROGEN</td> <td>10 mg/dL</td> <td>7-20</td> </tr> <tr> & lt;td>CREATININE</td> <td>0.9 mg/dL</td> <td >0.6-1.0</td> </tr> <tr> <td> SODIUM</td> <td>138 mmol/L</td> <td> 135-148</td> </tr> <tr> <td> CHLORIDE</td> <td>103 mmol/L</td> <td> 98-110</td> </tr> <tr> <td> CARBON DIOXIDE</td> <td>25 mmol/L</td> < td>21-32</td></tr> <tr> <th colspan=& quot;10">GLUCOSE (POC) - 01/05/15 05:49</th> </tr> <tr> <td>GLUCOSE (POC)</td> <td>170 mg/ dL</td> <td>70-99</td> </tr> < tr> <th colspan="10">GLUCOSE (POC) - 01/05/15 07:54& lt;/th> </tr> <tr> <td>GLUCOSE (POC) </td> <td>163 mg/dL</td> <td>70-99< /td> </tr> <tr> <th colspan="10& quot;>CBC - 06/16/15 07:34</th> </tr> <tr> <td>MEAN CELL HGB</td> <td>24.7 pg</td&gt ; <td>27.0-33.0</td> </tr> <tr> <td>MEAN CELL HGB CONCENTRATION</td> <td> 32.4 g/dL</td> <td>32.0-37.0</td> </tr> <tr> <td>MEAN CELL VOLUME</td> < td>76.1 fl</td> <td>80.0-100.0</td> </tr > <tr> <td>RED BLOOD CELL</td> &lt ;td>5.23 m/cumm</td> <td>4.00-6.00</td> &lt ;/tr> <tr> <td>RED CELL DISTRIBUTION WIDTH</td > <td>19.7 %</td> <td>11.0-15.6& lt;/td> </tr> <tr> <td>WHITE BLOOD CELL</td> <td>7.8 k/cumm</td> <td>5.0- 10.0</td> </tr> <tr> <td> HEMOGLOBIN</td> <td>12.9 gm/dL</td> <td& gt;12.0-16.0</td> </tr> <tr> <td> HEMATOCRIT</td> <td>39.8 %</td> < td>37.0-47.0</td> </tr> <tr> <td& gt;PLATELET COUNT</td> <td>252 k/cumm</td> & lt;td>150-400</td> </tr> <tr> < th colspan="10">METABOLIC PANEL, BASIC - 06/16/15 07:34</th> </tr> <tr> <td>POTASSIUM</td> & lt;td>4.0 mmol/L</td> <td>3.5-5.3</td> < /tr> <tr> <td>EST GFR (MDRD)</td><td> > 60 mL/min</td> <td>> 59</td> & lt;/tr> <tr> <td>ANION GAP</td> &lt ;td>10 mmol/L</td> <td>5-15</td> </tr> <tr> <td>GLUCOSE</td> <td>220 mg /dL</td> <td>70-99</td> </tr> < tr> <td>CALCIUM</td> <td>9.5 mg/dL</td > <td>8.5-10.1</td> </tr> <tr> <td>BLOOD UREANITROGEN</td> <td>8 mg/dL</td& gt; <td>7-20</td> </tr> <tr> <td>CREATININE</td> <td>0.6 mg/dL</td> <td>0.6-1.0</td> </tr> <tr> <td>SODIUM</td> <td>135 mmol/L</td> <td>135-148</td> </tr> <tr> < td>CHLORIDE</td> <td>102 mmol/L</td> < td>98-110</td> </tr> <tr> <td> CARBON DIOXIDE</td> <td>23 mmol/L</td> < td>21-32</td> </tr> <tr> <th colspan="10">GLUCOSE (POC) - 06/22/15 05:36</th> </ tr> <tr> <td>GLUCOSE (POC)</td> & lt;td>237 mg/dL</td> <td>70-99</td> </tr > <tr> <th colspan="10">FLUID CYTOLOGY - 06/22/15 08:15</th> </tr> <tr> <td >FLUID CYTOLOGY</td> <td>SPECIMEN RECEIVED </td> <td /> </tr> <tr><th colspan=" 10">GLUCOSE (POC) - 06/22/15 09:06</th> </tr><tr& gt; <td>GLUCOSE (POC)</td> <td>269 mg/dL< /td> <td>70-99</td> </tr> <tr> <th colspan="10">GLUCOSE (POC) - 06/22/15 10:37</th> </tr> <tr> <td>GLUCOSE (POC)</td&gt ; <td>296 mg/dL</td> <td>70-99</td> </tr> <tr> <th colspan="10"> GLUCOSE (POC) - 06/22/15 11:00</th> </tr> <tr> <td>GLUCOSE (POC)</td> <td>270 mg/dL</td& gt; <td>70-99</td> </tr> <tr> <th colspan="10">HGB HCT - 06/22/15 11:02</th> & lt;/tr> <tr> <td>MEAN CELL VOLUME</td> <td>75.5 fl</td> <td>80.0-100.0</td> </tr> <tr> <td>HEMOGLOBIN</td> &lt ;td>13.2 gm/dL</td> <td>12.0-16.0</td> < /tr> <tr> <td>HEMATOCRIT</td> <td> 40.3 %</td> <td>37.0-47.0</td> </tr > <tr> <th colspan="10">GLUCOSE (POC) - 06/22 13:13</th> </tr> <tr> <td>GLUCOSE (POC)</td> <td>216 mg/dL</td> <td>70- 99</td> </tr> <tr> <th colspan=&quot ;10">GLUCOSE (POC) - 06/22/15 18:17</th> </tr> <tr> <td>GLUCOSE (POC)</td> <td>170 mg/dL</td><td>70-99</td> </tr> <tr> <th colspan="10">GLUCOSE (POC) - 06/22/15 23:47</th > </tr> <tr> <td>GLUCOSE (POC)</ td> <td>242 mg/dL</td> <td>70-99</td& gt; </tr> <tr> <th colspan="10"& gt;GLUCOSE (POC) - 06/23/15 03:04</th> </tr> <tr&gt ; <td>GLUCOSE (POC)</td> <td>216 mg/dL</ td> <td>70-99</td> </tr> <tr> <th colspan="10">GLUCOSE (POC) - 06/23/15 04:47</th> </tr> <tr> <td>GLUCOSE (POC)</td> <td>205mg/dL</td> <td>70-99</td> </tr> <tr> <th colspan="10"> GLUCOSE (POC) - 06/23/15 05:27</th> </tr> <tr> <td>GLUCOSE (POC)</td> <td>219 mg/dL</td& gt; <td>70-99</td> </tr> <tr> &lt ;th colspan="10">CBC W/DIFF - 06/23/15 05:28</th> < /tr> <tr> <td>COMMENT</td> <td& gt;REVIEWED </td> <td /> </tr> <tr&gt ; <td>EOSINOPHIL #</td> <td>0.1 k/cumm</ td> <td>0.1-0.5</td> </tr> <tr&gt ; <td>EOSINOPHIL %</td> <td>1 &# 37;</td> <td>2-4</td> </tr> <tr > <td>GRANULOCYTE #</td> <td>7.9 k/cumm& lt;/td> <td>2.0-9.0</td> </tr> < tr> <td>GRANULOCYTE %</td> <td>78 & #37;</td> <td>50-75</td> </tr> & lt;tr> <td>LYMPHOCYTE #</td> <td>0.9 k/ cumm</td> <td>1.0-4.0</td> </tr> <tr> <td>LYMPHOCYTE %</td> <td&gt ;9 %</td> <td>20-30</td> </tr> <tr> <td>MEAN CELL HGB</td> <td&gt ;24.4 pg</td> <td>27.0-33.0</td> </tr> <tr> <td>MEAN CELL HGB CONCENTRATION</td> <td>30.7 g/dL</td> <td>32.0-37.0</td> </tr> <tr> <td>MEAN CELL VOLUME</td> <td>79.5 fl</td> <td>80.0-100.0</td> & lt;/tr> <tr> <td>MONOCYTE #</td> & lt;td>1.1 k/cumm</td> <td>0.1-1.0</td> </tr&gt ; <tr> <td>MONOCYTE %</td> & lt;td>11 %</td> <td>4-6</td> </ tr> <tr> <td>OVALOCYTES</td> <td> NOTED </td> <td /> </tr> <tr> <td>RED BLOOD CELL</td> <td>4.63 m/cumm</td > <td>4.00-6.00</td> </tr> <tr&gt ; <td>RED CELL DISTRIBUTION WIDTH</td> <td> 19.5 %</td> <td>11.0-15.6</td> </tr> <tr> <td>WHITE BLOOD CELL</td> <td&gt ;10.1 k/cumm</td> <td>5.0-10.0</td> </tr> <tr> <td>HEMOGLOBIN</td> <td>11.3 gm/dL</td> <td>12.0-16.0</td> </tr> <tr> <td>HEMATOCRIT</td> <td>36.8 %</td> <td>37.0-47.0</td> </tr> <tr> <td>PLATELET COUNT</td> <td> 227 k/cumm</td> <td>150-400</td> </tr> <tr> <th colspan="10">METABOLIC PANEL, COMPREHN - 06/23/15 05:28</th> </tr> <tr> <td>POTASSIUM</td> <td>4.2 mmol/L</td> <td>3.5-5.3</td> </tr> <tr> < td>EST GFR (MDRD)</td> <td>> 60 mL/min</td&gt ; <td>> 59</td> </tr> <tr&gt ; <td>ANION GAP</td> <td>8 mmol/L</td&gt ; <td>5-15</td> </tr> <tr> <td>EST CrCl (CG)</td> <td>> 60 mL/min</ td> <td>> 59</td> </tr> < tr> <td>GLUCOSE</td> <td>222 mg/dL</td > <td>70-99</td> </tr> <tr> <td>CALCIUM</td> <td>8.5 mg/dL</td> <td>8.5-10.1</td> </tr> <tr> <td>BLOOD UREA NITROGEN</td> <td>9 mg/dL</td&gt ; <td>7-20</td> </tr> <tr> <td>CREATININE</td> <td>0.7 mg/dL</td> <td>0.6-1.0</td> </tr> <tr> <td>SODIUM</td> <td>135 mmol/L</td> <td>135-148</td> </tr> <tr> < td>CHLORIDE</td> <td>102 mmol/L</td> <td>98- 110</td> </tr> <tr> <td>AST/SGOT& lt;/td> <td>37 Units/L</td> <td>10-37< /td> </tr> <tr> <td>ALT/SGPT</td& gt; <td>38 Units/L</td> <td>< 66</td&gt ; </tr> <tr> <td>CARBON DIOXIDE</td> <td>25 mmol/L</td> <td>21-32</td> </tr> <tr> <td>TOTAL PROTEIN</td> <td>6.5 gm/dL</td> <td>6.4-8.2</td> </tr> <tr> <td>ALBUMIN</td> <td>2.8 gm/dL</td> <td>3.4-5.0</td> & lt;/tr> <tr> <td>BILI TOTAL</td> & lt;td>0.6 mg/dL</td> <td>0.0-1.0</td> </tr& gt; <tr> <td>ALKALINE PHOSPHATASE TOTAL</td>& lt;td>137 IU/L</td> <td>45-117</td> </tr > <tr> <th colspan="10">GLUCOSE (POC) - 06/23/15 11:03</th> </tr> <tr> <td >GLUCOSE (POC)</td> <td>253 mg/dL</td> & lt;td>70-99</td> </tr> <tr> <th colspan="10">GLUCOSE (POC) - 06/23/15 14:31</th> </ tr> <tr> <td>GLUCOSE (POC)</td> < td>148 mg/dL</td> <td>70-99</td> </tr&gt ; <tr> <th colspan="10">GLUCOSE (POC) - 19:21</th> </tr> <tr> <td> GLUCOSE(POC)</td> <td>225 mg/dL</td> <td& gt;70-99</td> </tr> <tr> <th colspan ="10">GLUCOSE (POC) - 06/23/15 19:26</th> </tr> <tr> <td>GLUCOSE (POC)</td> <td>209 mg/ dL</td> <td>70-99</td> </tr> < tr> <th colspan="10">HGB HCT - 06/23/15 21:35</ th> </tr> <tr> <td>MEAN CELL VOLUME& lt;/td> <td>78.9 fl</td> <td>80.0-100.0& lt;/td> </tr> <tr> <td>HEMOGLOBIN&lt ;/td> <td>10.5 gm/dL</td> <td>12.0-16.0& lt;/td> </tr> <tr> <td>HEMATOCRIT&lt ;/td> <td>33.7 %</td> <td>37.0- 47.0</td> </tr> <tr> <th colspan=& quot;10">GLUCOSE (POC) - 06/24/15 05:51</th> </tr> <tr> <td>GLUCOSE (POC)</td> <td> 199 mg/dL</td> <td>70-99</td> </tr> <tr> <th colspan="10">GLUCOSE (POC) - 09:57</th> </tr> <tr> <td>GLUCOSE ( POC)</td> <td>221 mg/dL</td> <td>70-99 </td> </tr> <tr> <th colspan=" 10">CBC W/DIFF - 06/24/15 11:01</th> </tr> &lt ;tr> <td>BASOPHIL #</td> <td>0.1 k/cumm& lt;/td> <td>0.0-0.2</td> </tr> < tr> <td>BASOPHIL %</td> <td>1 & amp;#37;</td> <td>0-1</td> </tr> <tr> <td>COMMENT</td> <td>REVIEWED &lt ;/td> <td /> </tr> <tr> &lt ;td>EOSINOPHIL #</td> <td>0.3 k/cumm</td> <td>0.1-0.5</td> </tr> <tr> &lt ;td>EOSINOPHIL %</td> <td>2 %</td&gt ; <td>2-4</td> </tr> <tr> <td>GRANULOCYTE #</td> <td>10.1 k/cumm</td> <td>2.0-9.0</td> </tr> <tr> <td>GRANULOCYTE %</td> <td>75 %&lt ;/td> <td>50-75</td> </tr> <tr> <td>LYMPHOCYTE #</td> <td>1.6 k/cumm</td> <td>1.0-4.0</td> </tr> <tr> <td>LYMPHOCYTE %</td> <td>12 %&lt ;/td> <td>20-30</td> </tr> <tr&gt ; <td>MEAN CELL HGB</td> <td>25.0 pg</td& gt; <td>27.0-33.0</td> </tr> <tr&gt ; <td>MEAN CELL HGB CONCENTRATION</td> <td> 31.3 g/dL</td> <td>32.0-37.0</td> </tr> <tr> <td>MEAN CELL VOLUME</td> <td >80.0 fl</td> <td>80.0-100.0</td> </tr& gt; <tr> <td>MONOCYTE #</td> <td& gt;1.4 k/cumm</td> <td>0.1-1.0</td> </tr> <tr> <td>MONOCYTE %</td> < td>11 %</td> <td>4-6</td> </tr& gt; <tr> <td>RED BLOOD CELL</td> <td&gt ;4.04 m/cumm</td> <td>4.00-6.00</td> </tr& gt; <tr> <td>RED CELL DISTRIBUTION WIDTH</td> <td>19.0 %</td> <td>11.0-15.6</ td> </tr> <tr> <td>WHITE BLOOD CELL& lt;/td> <td>13.5 k/cumm</td> <td>5.0-10.0 </td> </tr> <tr> <td>HEMOGLOBIN&lt ;/td> <td>10.1 gm/dL</td> <td>12.0-16.0& lt;/td> </tr> <tr> <td>HEMATOCRIT&lt ;/td> <td>32.3 %</td> <td>37.0-47.0& lt;/td> </tr> <tr> <td>PLATELET COUNT</td> <td>363 k/cumm</td> <td>150 -400</td> </tr> <tr> <th colspan=& quot;10">MORPHOLOGY - 06/24/15 11:01</th> </tr> <tr> <td>RBC MORPH</td> <td>NOTED </td > <td /></tr> <tr> <th colspan= "10">METABOLIC PANEL, COMPREHN - 06/24/15 11:01</th> & lt;/tr> <tr> <td>POTASSIUM</td> & lt;td>3.9 mmol/L</td> <td>3.5-5.3</td> < /tr> <tr> <td>EST GFR (MDRD)</td> &lt ;td>54 mL/min</td> <td>> 59</td> < /tr> <tr> <td>ANION GAP</td> < td>5 mmol/L</td> <td>5-15</td> </tr> <tr> <td>EST CrCl (CG)</td> <td& gt;57 mL/min</td> <td>> 59</td> </tr > <tr> <td>GLUCOSE</td> <td> 181 mg/dL</td> <td>70-99</td> </tr> <tr> <td>CALCIUM</td> <td>8.4 mg/ dL</td> <td>8.5-10.1</td> </tr> & lt;tr><td>BLOOD UREA NITROGEN</td> <td>5 mg/dL< /td> <td>7-20</td> </tr> <tr> <td>CREATININE</td> <td>1.0 mg/dL</td&gt ; <td>0.6-1.0</td> </tr> <tr> <td>SODIUM</td> <td>129 mmol/L</td> <td>135-148</td> </tr> <tr> <td>CHLORIDE</td> <td>96 mmol/L</td> <td >98-110</td> </tr> <tr> <td> AST/SGOT</td> <td>24 Units/L</td> <td> 10-37</td> </tr> <tr> <td>ALT/ SGPT</td> <td>30 Units/L</td> <td>&lt ; 66</td> </tr> <tr> <td>CARBON DIOXIDE</td> <td>28 mmol/L</td> <td>21- 32</td> </tr> <tr> <td>TOTAL PROTEIN</td> <td>6.2 gm/dL</td> <td> 6.4-8.2</td></tr> <tr> <td>ALBUMIN</ td> <td>2.5 gm/dL</td> <td>3.4-5.0</td > </tr> <tr> <td>BILI TOTAL</td& gt; <td>0.5 mg/dL</td> <td>0.0-1.0</td&gt ; </tr> <tr> <td>ALKALINE PHOSPHATASE TOTAL</td> <td>120 IU/L</td> <td>45-117</td& gt; </tr> <tr> <th colspan="10"& gt;GLUCOSE (POC) - 06/24/15 16:27</th> </tr> <tr&gt ; <td>GLUCOSE (POC)</td> <td>167 mg/dL</ td> <td>70-99</td> </tr> <tr> <th colspan="10">HGB HCT - 06/24/15 17:41</th&gt ; </tr> <tr> <td>MEAN CELL VOLUME</td> <td>79.9 fl</td> <td>80.0-100.0</td> </tr> <tr> <td>HEMOGLOBIN</td> <td>9.1 gm/dL</td> <td>12.0-16.0</td> </tr> <tr> <td>HEMATOCRIT</td> & lt;td>29.4 %</td> <td>37.0-47.0</td> & lt;/tr> <tr> <th colspan="10">GLUCOSE ( POC) - 06/24/15 21:30</th> </tr> <tr> <td& gt;GLUCOSE (POC)</td> <td>222 mg/dL</td> &lt ;td>70-99</td> </tr> <tr> <th colspan="10">GLUCOSE (POC) - 06/25/15 05:41</th> </ tr> <tr> <td>GLUCOSE (POC)</td> & lt;td>183 mg/dL</td> <td>70-99</td> </tr > <tr> <th colspan="10">CBC W/DIFF - 07:09</th> </tr> <tr> <td> BASOPHIL #</td> <td>0.1 k/cumm</td> <td& gt;0.0-0.2</td> </tr> <tr> <td> BASOPHIL %</td> <td>1 %</td> <td>0-1</td> </tr> <tr> <td& gt;EOSINOPHIL #</td> <td>0.3 k/cumm</td> < td>0.1-0.5</td> </tr> <tr> <td> EOSINOPHIL %</td> <td>2 %</td> <td>2-4</td> </tr> <tr> < td>GRANULOCYTE #</td> <td>7.8 k/cumm</td> <td>2.0-9.0</td> </tr> <tr> < td>GRANULOCYTE %</td> <td>73 %</td&gt ; <td>50-75</td> </tr> <tr> <td>LYMPHOCYTE #</td> <td>1.1 k/cumm</td> <td>1.0-4.0</td> </tr> <tr> <td>LYMPHOCYTE %</td> <td>11 %& lt;/td> <td>20-30</td> </tr> <tr& gt; <td>MEAN CELL HGB</td> <td>24.9 pg</ td> <td>27.0-33.0</td> </tr> <tr& gt; <td>MEAN CELL HGB CONCENTRATION</td> <td&gt ;31.7 g/dL</td> <td>32.0-37.0</td> </tr&gt ; <tr> <td>MEAN CELL VOLUME</td> < td>78.6 fl</td> <td>80.0-100.0</td> </tr > <tr> <td>MONOCYTE #</td> <td&gt ;1.4 k/cumm</td> <td>0.1-1.0</td> </tr> <tr> <td>MONOCYTE%</td> <td& gt;13 %</td> <td>4-6</td> </tr> <tr> <td>RED BLOOD CELL</td> <td> 3.73 m/cumm</td> <td>4.00-6.00</td> </tr&gt ; <tr> <td>RED CELL DISTRIBUTION WIDTH</td> <td>18.4 %</td> <td>11.0-15.6</td> </tr> <tr> <td>WHITE BLOOD CELL</td&gt ; <td>10.7 k/cumm</td> <td>5.0-10.0</td& gt; </tr> <tr> <td>HEMOGLOBIN</td&gt ; <td>9.3 gm/dL</td> <td>12.0-16.0</td&gt ; </tr> <tr> <td>HEMATOCRIT</td> <td>29.3 %</td> <td>37.0-47.0</td> </tr> <tr> <td>PLATELET COUNT</td&gt ; <td>250 k/cumm</td> <td>150-400</td> </tr> <tr> <th colspan="10"> MORPHOLOGY - 06/25/15 07:09</th> </tr> <tr> & lt;td>RBC MORPH</td> <td>NOTED </td> < td /> </tr> <tr> <th colspan="10& quot;>METABOLIC PANEL, COMPREHN - 06/25/15 07:09</th> </tr&gt ; <tr> <td>POTASSIUM</td> <td>3.6 mmol/L</td> <td>3.5-5.3</td> </tr> <tr> <td>EST GFR (MDRD)</td> <td>54 mL/ min</td> <td>> 59</td> </tr> & lt;tr> <td>ANION GAP</td> <td>7 mmol/L&lt ;/td> <td>5-15</td> </tr> <tr> <td>EST CrCl (CG)</td> <td>57 mL/min</td> <td>> 59</td> </tr> <tr> <td>GLUCOSE</td> <td>179 mg/dL</td> <td>70-99</td> </tr> <tr> <td>CALCIUM</td> <td>8.4 mg/dL</td> & lt;td>8.5-10.1</td> </tr> <tr> < td>BLOOD UREA NITROGEN</td> <td>11 mg/dL</td> <td>7-20</td> </tr> <tr> & lt;td>CREATININE</td> <td>1.0 mg/dL</td> <td>0.6-1.0</td> </tr> <tr> < td>SODIUM</td> <td>131 mmol/L</td> <td >135-148</td> </tr> <tr> <td>CHLORIDE& lt;/td> <td>99 mmol/L</td> <td>98-110< /td> </tr> <tr> <td>AST/SGOT</td& gt; <td>110 Units/L</td> <td>10-37</td&gt ; </tr> <tr> <td>ALT/SGPT</td> <td>145 Units/L</td> <td>< 66</td> </tr> <tr> <td>CARBON DIOXIDE</td&gt ; <td>25 mmol/L</td> <td>21-32</td> </tr> <tr> <td>TOTAL PROTEIN</td> <td>6.0 gm/dL</td> <td>6.4-8.2</td> </tr& gt; <tr> <td>ALBUMIN</td> <td> 2.3 gm/dL</td> <td>3.4-5.0</td> </tr> <tr> <td>BILI TOTAL</td> <td> 0.5 mg/dL</td> <td>0.0-1.0</td> </tr> <tr> <td>ALKALINE PHOSPHATASE TOTAL</td> <td>141 IU/L</td> <td>45-117</td> & lt;/tr> <tr> <th colspan="10">GLUCOSE ( POC) - 06/25/15 10:07</th> </tr> <tr> & lt;td>GLUCOSE (POC)</td> <td>180 mg/dL</td> <td>70-99</td> </tr> <tr> &lt ;th colspan="10">GLUCOSE (POC) - 06/25/15 16:17</th> & lt;/tr> <tr> <td>GLUCOSE (POC)</td> <td>206 mg/dL</td> <td>70-99</td> &lt ;/tr> <tr> <th colspan="10">GLUCOSE (POC) - 16:19</th> </tr> <tr> <td> GLUCOSE (POC)</td> <td>217 mg/dL</td> <td> 70-99</td> </tr> <tr> <th colspan=& quot;10">GLUCOSE (POC) - 06/25/15 19:07</th> </tr> <tr> <td>GLUCOSE (POC)</td> <td> 196 mg/dL</td> <td>70-99</td> </tr> <tr> <th colspan="10">GLUCOSE (POC)- 19:10</th> </tr> <tr> <td> GLUCOSE (POC)</td> <td>187 mg/dL</td> <td >70-99</td> </tr> <tr> <th colspan="10">CBC W/DIFF - 06/26/15 05:00</th> </tr& gt; <tr> <td>BASOPHIL #</td> <td& gt;0.1k/cumm</td> <td>0.0-0.2</td> </tr&gt ; <tr> <td>BASOPHIL %</td> <td> 1 %</td> <td>0-1</td> </tr> <tr> <td>COMMENT</td> <td> REVIEWED </td> <td /> </tr> <tr> <td>EOSINOPHIL #</td> <td>0.3 k/cumm</td > <td>0.1-0.5</td> </tr> <tr> <td>EOSINOPHIL %</td> <td>3 %&lt ;/td> <td>2-4</td> </tr> <tr> <td>GRANULOCYTE #</td> <td>7.0 k/cumm</ td> <td>2.0-9.0</td> </tr> <tr> <td>GRANULOCYTE %</td> <td>73 %&lt ;/td> <td>50-75</td> </tr> <tr> <td>LYMPHOCYTE #</td> <td>1.1 k/cumm</td&gt ; <td>1.0-4.0</td> </tr> <tr> <td>LYMPHOCYTE %</td> <td>11 % </td> <td>20-30</td> </tr> <tr > <td>MEAN CELL HGB</td> <td>24.6 pg</td > <td>27.0-33.0</td> </tr> <tr> <td>MEAN CELL HGB CONCENTRATION</td> <td>31.5 g /dL</td> <td>32.0-37.0</td> </tr> <tr> <td>MEAN CELL VOLUME</td> <td> 78.0 fl</td> <td>80.0-100.0</td> </tr> <tr> <td>MONOCYTE #</td> <td> 1.1 k/cumm</td> <td>0.1-1.0</td> </tr> <tr> <td>MONOCYTE %</td> < td>11 %</td> <td>4-6</td> </tr> <tr> <td>RED BLOOD CELL</td> <td> 3.82 m/cumm</td> <td>4.00-6.00</td> </tr&gt ; <tr> <td>RED CELL DISTRIBUTION WIDTH</td> <td>18.2 %</td> <td>11.0-15.6</td& gt; </tr> <tr> <td>WHITE BLOOD CELL< /td> <td>9.6 k/cumm</td> <td>5.0-10.0</td> </tr> <tr> <td>HEMOGLOBIN</td> <td>9.4 gm/dL</td> <td>12.0-16.0</td> </tr> <tr> <td>HEMATOCRIT</td> <td>29.8 %</td> <td>37.0-47.0</td& gt; </tr> <tr> <td>PLATELET COUNT</ td> <td>300 k/cumm</td> <td>150-400</ td> </tr> <tr> <th colspan="10& quot;>MORPHOLOGY - 06/26/15 05:00</th> </tr> <tr > <td>RBC MORPH</td> <td>NOTED </td&gt ; <td /> </tr> <tr> <th colspan= "10">METABOLIC PANEL, COMPREHN - 06/26/15 05:00</th> & lt;/tr> <tr> <td>POTASSIUM</td> & lt;td>3.7 mmol/L</td> <td>3.5-5.3</td> < /tr> <tr> <td>EST GFR (MDRD)</td> <td>> 60 mL/min</td> <td>> 59</td&gt ; </tr> <tr> <td>ANION GAP</td> <td>8 mmol/L</td> <td>5-15</td> </tr& gt; <tr> <td>EST CrCl (CG)</td> < td>> 60 mL/min</td> <td>> 59</td> & lt;/tr> <tr> <td>GLUCOSE</td> < td>175 mg/dL</td> <td>70-99</td> </tr&gt ; <tr> <td>CALCIUM</td> <td> 8.3 mg/dL</td> <td>8.5-10.1</td> </tr> <tr> <td>BLOODUREA NITROGEN</td> < td>8 mg/dL</td> <td>7-20</td> </tr> <tr> <td>CREATININE</td> <td>0.7 mg /dL</td> <td>0.6-1.0</td> </tr> & lt;tr> <td>SODIUM</td> <td>132 mmol/L< /td> <td>135-148</td> </tr> <tr& gt; <td>CHLORIDE</td> <td>99mmol/L</td&gt ; <td>98-110</td> </tr> <tr>< td>AST/SGOT</td> <td>59 Units/L</td> < td>10-37</td> </tr> <tr> <td> ALT/SGPT</td> <td>125 Units/L</td> <td&gt ;< 66</td> </tr> <tr> <td> CARBON DIOXIDE</td> <td>25 mmol/L</td> < td>21-32</td> </tr> <tr> <td> TOTAL PROTEIN</td> <td>6.5 gm/dL</td> <td >6.4-8.2</td> </tr> <tr> <td> ALBUMIN</td> <td>2.4 gm/dL</td> <td>3.4-5.0< /td> </tr> <tr> <td>BILI TOTAL</ td> <td>0.5 mg/dL</td> <td>0.0-1.0</td > </tr> <tr> <td>ALKALINE PHOSPHATASE TOTAL</td> <td>196IU/L</td> < td>45-117</td> </tr> <tr> <th colspan="10">GLUCOSE (POC) - 06/26/15 05:23</th> </ tr> <tr> <td>GLUCOSE (POC)</td> & lt;td>191 mg/dL</td> <td>70-99</td> </tr> <tr> <th colspan="10">GLUCOSE (POC) - 10:37</th> </tr> <tr> <td> GLUCOSE (POC)</td> <td>224 mg/dL</td> <td >70-99</td> </tr> <tr> <th colspan="10">GLUCOSE (POC) - 06/26/15 16:13</th> </ tr> <tr> <td>GLUCOSE (POC)</td> & lt;td>194 mg/dL</td> <td>70-99</td> </tr > <tr> <th colspan="10">GLUCOSE (POC) - 19:18</th> </tr> <tr> <td> GLUCOSE (POC)</td> <td>242 mg/dL</td> <td >70-99</td> </tr> <tr> <th colspan="10">GLUCOSE (POC) - 06/27/15 05:57</th> </ tr> <tr> <td>GLUCOSE (POC)</td> & lt;td>170 mg/dL</td> <td>70-99</td> </tr> <tr> <th colspan="10">GLUCOSE (POC) - 09:39</th> </tr> <tr> <td> GLUCOSE (POC)</td> <td>257 mg/dL</td> <td >70-99</td> </tr> <tr> <th colspan="10">GLUCOSE (POC) - 06/27/15 14:25</th> </ tr> <tr> <td>GLUCOSE (POC)</td> & lt;td>266 mg/dL</td> <td>70-99</td> </tr > <tr> <th colspan="10">GLUCOSE (POC) - 19:37</th> </tr> <tr> <td> GLUCOSE (POC)</td> <td>222 mg/dL</td> <td >70-99</td> </tr> <tr><th colspan="10 ">GLUCOSE (POC) - 06/28/15 05:02</th> </tr><tr&gt ; <td>GLUCOSE (POC)</td> <td>200 mg/dL</ td> <td>70-99</td> </tr> <tr> <th colspan="10">GLUCOSE (POC) - 06/28/15 09:34</th> </tr> <tr> <td>GLUCOSE (POC)</td> <td>266 mg/dL</td> <td>70-99</td> </tr> <tr> <th colspan="10"> GLUCOSE (POC) - 06/28/15 15:28</th> </tr> <tr> <td>GLUCOSE (POC)</td> <td>124 mg/dL</td& gt; <td>70-99</td> </tr> <tr> <th colspan="10">GLUCOSE (POC) - 06/22/17 10:40</th> </tr> <tr> <td>GLUCOSE (POC)</td&gt ; <td>224 mg/dL</td> <td>70-99</td> </tr> <tr> <th colspan="10">HEMOGLOBIN - 06/22/17 10:42</th> </tr> <tr> <td >MEAN CELL VOLUME</td> <td>82.0 fl</td> <td&gt ;80.0-100.0</td> </tr> <tr> <td> HEMOGLOBIN</td> <td>13.8 gm/dL</td> <td& gt;12.0-16.0</td> </tr> <tr> <th colspan="10">POTASSIUM - 06/22/17 10:42</th> </tr& gt; <tr> <td>POTASSIUM</td> <td&gt ;3.9 mmol/L</td> <td>3.5-5.3</td> </tr> <tr> <th colspan="10">GLUCOSE (POC) - 10:37</th> </tr> <tr> <td> GLUCOSE (POC)</td> <td>184 mg/dL</td> <td >70-99</td> </tr> <tr> <th colspan="10">MRSA SURVEILLANCE SCREEN - 06/29/17 10:39</th> </tr> <tr> <td>Microbiology</td> <td> </td> <td /> </tr> <tr> <th colspan="10">GLUCOSE (POC) - 06/29/17 16 :11</th> </tr> <tr> <td>GLUCOSE ( POC)</td> <td>133 mg/dL</td> <td>70-99& lt;/td> </tr> <tr> <th colspan="10"& gt;CBC W/DIFF - 08/09/17 21:03</th> </tr> <tr> <td>BASOPHIL #</td> <td>0.1 k/cumm</td&gt ; <td>0.0-0.2</td> </tr> <tr> <td>BASOPHIL %</td> <td>0.7 %& lt;/td> <td>0-1</td> </tr> <tr&gt ; <td>EOSINOPHIL #</td> <td>0.3 k/cumm</ td> <td>0.1-0.5</td> </tr> <tr&gt ; <td>EOSINOPHIL %</td> <td>4.9 &amp ;#37;</td> <td>2-4</td> </tr> <tr > <td>GRANULOCYTE #</td> <td>4.5 k/cumm& lt;/td> <td>2.0-9.0</td> </tr> < tr> <td>GRANULOCYTE %</td> <td> 65.0 %</td> <td>50-75</td> </tr&gt ; <tr> <td>LYMPHOCYTE #</td> <td>0.8 k/cumm</td> <td>1.0-4.0</td> </tr> <tr> <td>LYMPHOCYTE %</td> <td >11.1 %</td> <td>20-30</td> </tr > <tr> <td>MEAN CELL HGB</td> < td>27.6 pg</td> <td>27.0-33.0</td> </tr& gt; <tr> <td>MEAN CELL HGB CONCENTRATION</td> <td>33.0 g/dL</td> <td>32.0-37.0</td&gt ; </tr> <tr> <td>MEAN CELL VOLUME</ td> <td>83.9 fl</td> <td>80.0-100.0</td&gt ; </tr> <tr> <td>MONOCYTE #</td> <td>1.2 k/cumm</td> <td>0.1-1.0</td> </tr& gt; <tr> <td>MONOCYTE %</td> <td>17.6 %</td> <td>4-6</td> </tr&gt ; <tr> <td>MEAN PLATELET VOLUME</td> <td>9.7 fl</td> <td>8.5-10.9</td> </ tr> <tr> <td>RED BLOOD CELL</td> <td&gt ;4.16 m/cumm</td> <td>4.00-6.00</td> </tr& gt; <tr> <td>RED CELL DISTRIBUTION WIDTH</td> <td>15.1 %</td> <td>11.0-15.6</ td> </tr> <tr> <td>WHITE BLOOD CELL</ td> <td>6.9 k/cumm</td> <td>5.0-10.0</ td> </tr> <tr> <td>HEMOGLOBIN</td> <td>11.5 gm/dL</td> <td>12.0-16.0</td&gt ; </tr> <tr> <td>HEMATOCRIT</td> <td>34.9 %</td> <td>37.0-47.0</td> </tr> <tr> <td>NRBC %</td> <td>0.0 /100 WBC</td> <td>0.0-0.0</td> </tr> <tr> <td>NRBC#</td> <td>0.00 k/cumm</td> <td>0.03-0.11</td> &lt ;/tr> <tr> <td>PLATELET COUNT</td> <td>188 k/cumm</td> <td>150-400</td> & lt;/tr> <tr> <td>IMMATURE GRANULOCYTE %& lt;/td> <td>0.7 %</td> <td>0.0-0.6</ td> </tr> <tr> <td>IMMATURE GRANULOCYTE #</td> <td>0.05 k/cumm</td> < td>0.00-0.09</td> </tr> <tr> <th colspan="10">HEPATIC FUNCTION PANEL - 08/09/17 21:03</th> </tr> <tr> <td>BILI UNCONJUGATED</td& gt; <td>0.6 mg/dL</td> <td>0.0-0.7</td&gt ; </tr> <tr> <td>AST/SGOT</td> <td>35 Units/L</td> <td>10-37</td> </tr> <tr> <td>ALT/SGPT</td> <td>32 Units/L</td> <td>< 66</td> </tr> <tr> <td>TOTAL PROTEIN</td> <td>6.7 gm/dL</td> <td>6.4-8.2</td> </tr> <tr> <td>ALBUMIN</td> &lt ;td>2.8 gm/dL</td> <td>3.4-5.0</td> </tr > <tr> <td>BILI TOTAL</td> <td& gt;0.7 mg/dL</td> <td>0.0-1.0</td> </tr&gt ; <tr> <td>ALKALINE PHOSPHATASE TOTAL</td> <td>117 IU/L</td> <td>45-117</td> < /tr> <tr> <td>BILI CONJUGATED</td> <td>0.1 mg/dL</td> <td>0.0-0.3</td> & lt;/tr> <tr> <th colspan="10"> MAGNESIUM - // 21:03</th> </tr> <tr> <td>MAGNESIUM</td> <td>1.1 mg/dL</td> <td>1.8-2.4</td> </tr> <tr> & lt;th colspan="10">LIPASE - 08/09/17 21:03</th> </ tr><tr> <td>LIPASE</td> <td>172 Units/L</td> <td>73-393</td> </tr> <tr> <th colspan="10">CHEM/HEM PROFILE- BEDSIDE - 08/09/17 21:05</th> </tr> <tr> <td >POTASSIUM</td> <td>3.7 mmol/L</td> < td>3.5-5.3</td> </tr> <tr> <td&gt ;METHOD</td> <td>Bedside </td> <td /> </tr> <tr> <td>ANION GAP</td> <td>17 mmol/L</td> <td>10-20</td> &lt ;/tr> <tr> <td>METHOD</td> <td& gt;Bedside </td> <td /> </tr> <tr&gt ; <td>GLUCOSE</td> <td>160 mg/dL</td> <td>70-99</td> </tr> <tr> <td>BLOOD UREA NITROGEN</td> <td>15 mg/dL</td> <td>7-20</td> </tr> <tr> <td>CREATININE</td> <td>1.1 mg/dL</td> <td>0.6-1.0</td></tr> <tr> <td& gt;HEMOGLOBIN</td> <td>11.9 gm/dL</td> < td>12.0-16.0</td> </tr> <tr> <td& gt;HEMATOCRIT</td> <td>35.0 %</td> & lt;td>37.0-47.0</td> </tr> <tr> < td>SODIUM</td> <td>134 mmol/L</td> <td >135-148</td> </tr> <tr> <td> CHLORIDE</td> <td>95 mmol/L</td> <td> 98-110</td> </tr> <tr> <td> CARBON DIOXIDE</td> <td>26 mmol/L</td> <td> 21-32</td> </tr> <tr> <td> CALCIUM IONIZED</td> <td>4.3 mg/dL</td> <td> 4.5-5.3</td> </tr> <tr> <th colspan= "10">TROPONIN I BEDSIDE - 08/09/17 21:08</th> </tr& gt; <tr> <td>METHOD</td> <td>Bedside &lt ;/td> <td /> </tr> <tr> &lt ;td>TROPONIN I</td> <td>< 0.04 ng/mL</td> <td>< 0.11</td> </tr> <tr&gt ; <th colspan="10">URINALYSIS, ROUTINE - 08/09/17 22:57</ th> </tr> <tr> <td>UA LEUKOCYTE ESTERASE DIPSTICK</td> <td>1+ </td> <td& gt;NEGATIVE</td> </tr> <tr><td>UA NITRITE DIPSTICK</td> <td>NEGATIVE </td> <td> NEGATIVE</td> </tr> <tr> <td>UA PROTEIN DIPSTICK</td> <td>1+ </td> <td&gt ;NEGATIVE</td> </tr> <tr> <td>UA GLUCOSE DIPSTICK</td> <td>NEGATIVE </td> &lt ;td>NEGATIVE</td> </tr> <tr> <td& gt;UAKETONE DIPSTICK</td> <td>NEGATIVE </td> <td>NEGATIVE</td> </tr> <tr> & lt;td>UA UROBILINOGEN DIPSTICK</td> <td>2+ </td> <td>NORMAL</td> </tr> <tr> & lt;td>UA BILIRUBIN DIPSTICK</td> <td>NEGATIVE </td&gt ; <td>NEGATIVE</td> </tr> <tr> <td>UA BLOOD DIPSTICK</td> <td>1+ </td> <td>NEGATIVE</td> </tr> <tr> & lt;td>UA SPECIFIC GRAVITY</td> <td>1.015</td> <td>1.015-1.025</td> </tr> <tr> <td>UR PH</td> <td>7.0 </td> &lt ;td>5.0-7.0</td> </tr> <tr> <th colspan="10">UA MICROSCOPIC - 08/09/17 22:57</th> < /tr> <tr> <td>UA BACTERIA</td> <td& gt;2+ </td> <td>NEGATIVE</td> </tr> <tr> <td>UA RBC</td> <td>3-5 rbc/ hpf</td> <td>0 - 3</td> </tr> &lt ;tr> <td>UA VOLUME FOR EXAM</td> <td> 12.0 mL</td> <td>(12mL STD)</td> </tr> <tr> <td>UA WBC</td> <td>50- 100 wbc/hpf</td> <td>0 - 5</td> </tr> <tr> <td>WBC CLUMPS</td> <td> PRESENT </td> <td>NEGATIVE</td> </tr> <tr> <th colspan="10">URINE CULTURE - 08/09 22:57</th> </tr> <tr> <td> Microbiology</td> <td> </td> <td /> </tr> <tr> <th colspan="10"> LACTIC ACID - 08/10/17 00:30</th> </tr> <tr> <td>LACTIC ACID</td> <td>1.1 mmol/L</td> <td>0.5-2.0</td> </tr> <tr> <th colspan="10">THYROID STIM HORMONE (TSH) - 08/10/17 00:30 </th> </tr> <tr> <td>THYROID STIM HORMONE (TSH)</td> <td>0.27 uIU/mL</td> <td>0.34-4.82</td> </tr> <tr> & lt;th colspan="10">VIRUS RESPIRATORY PROFILE - 08/10/17 08:27</ th> </tr> <tr> <td>Microbiology</td> <td> </td> <td /> </tr> <tr> <th colspan="10">RENAL FUNCTION PANEL - 08:28</th> </tr> <tr> <td> POTASSIUM</td> <td>3.8 mmol/L</td> <td>3.5-5.3& lt;/td> </tr> <tr> <td>EST GFR (MDRD )</td> <td>> 60 mL/min</td> <td> > 59</td> </tr> <tr> <td> ANION GAP</td> <td>7 mmol/L</td> <td>5 -15</td> </tr> <tr> <td>EST CrCl (CG)</td> <td>> 60 mL/min</td> <td >> 59</td> </tr> <tr> <td> GLUCOSE</td> <td>139 mg/dL</td> <td>70 -99</td> </tr> <tr> <td>CALCIUM& lt;/td> <td>8.0 mg/dL</td> <td>8.5-10.1& lt;/td> </tr> <tr> <td>BLOOD UREA NITROGEN</td> <td>13 mg/dL</td> <td>7- 20</td> </tr> <tr> <td>CREATININE </td> <td>0.7 mg/dL</td> <td>0.6-1.0&lt ;/td> </tr> <tr> <td>SODIUM</td> <td>136 mmol/L</td><td>135-148</td> </ tr> <tr> <td>CHLORIDE</td> <td& gt;104 mmol/L</td> <td>98-110</td> </tr&gt ; <tr> <td>CARBON DIOXIDE</td> <td& gt;25 mmol/L</td> <td>21-32</td> </tr> <tr> <td>ALBUMIN</td> <td>2.7 gm/dL</td> <td>3.4-5.0</td> </tr> <tr> <td>PHOSPHORUS</td> <td>3.0 mg/ dL</td> <td>2.5-4.9</td> </tr> & lt;tr> <th colspan="10">MAGNESIUM - 08/10/17 08:28& lt;/th> </tr> <tr> <td>MAGNESIUM</td& gt; <td>1.7 mg/dL</td> <td>1.8-2.4</td&gt ; </tr> <tr> <th colspan="10"&gt ;PROCALCITONIN - 08/10/17 08:28</th> </tr> <tr> <td>PROCALCITONIN</td> <td>0.07 ng/mL</ td> <td>< 0.25</td> </tr> <tr& gt; <th colspan="10">HEMOGLOBIN A1C - 08/10/17 08:28&lt ;/th> </tr> <tr> <td>HEMOGLOBIN A1C& lt;/td> <td>7.9 %</td> <td>&lt ; 5.7</td> </tr> <tr> <th colspan=& quot;10">AG LEGIONELLA URINE - 08/10/17 11:08</th> </tr& gt; <tr> <td>Microbiology</td> <td > </td> <td /> </tr> <tr> <th colspan="10">GRAM STAIN - 08/10/17 11:15</th> </tr> <tr> <td>Microbiology</td> <td> </td> <td /></tr> <tr> <th colspan="10">GLUCOSE (POC) - 08/10/17 11:46</th& gt; </tr> <tr> <td>GLUCOSE (POC)</td > <td>265 mg/dL</td> <td>70-99</td> </tr> <tr> <th colspan="10">GLUCOSE (POC) - 08/10/17 16:38</th> </tr> <tr> <td>GLUCOSE (POC)</td> <td>133 mg/dL</td> <td>70-99</td> </tr> <tr> & lt;th colspan="10">METABOLIC PANEL, BASIC - 08/10/17 16:38</th& gt; </tr> <tr> <td>POTASSIUM</td&gt ; <td>4.0 mmol/L</td> <td>3.5-5.3</td&gt ; </tr> <tr> <td>EST GFR (MDRD)</td& gt; <td>> 60 mL/min</td> <td>&gt ; 59</td> </tr> <tr> <td>ANION GAP& lt;/td> <td>6 mmol/L</td> <td>5-15</td > </tr> <tr> <td>EST CrCl (CG)</ td> <td>> 60 mL/min</td> <td>& gt; 59</td> </tr> <tr> <td> GLUCOSE</td> <td>136 mg/dL</td> <td>70-99</ td> </tr> <tr> <td>CALCIUM</td&gt ; <td>8.2 mg/dL</td> <td>8.5-10.1</td&gt ; </tr> <tr> <td>BLOOD UREA NITROGEN&lt ;/td> <td>14 mg/dL</td> <td>7-20</td& gt; </tr> <tr> <td>CREATININE</td> <td>0.9 mg/dL</td> <td>0.6-1.0</td> </tr> <tr> <td>SODIUM</td> < td>135 mmol/L</td> <td>135-148</td> </tr > <tr> <td>CHLORIDE</td> <td&gt ;100 mmol/L</td> <td>98-110</td> </tr> <tr> <td>CARBONDIOXIDE</td> <td&gt ;29 mmol/L</td> <td>21-32</td> </tr> &lt ;tr> <th colspan="10">MAGNESIUM - 08/10/17 16:38< /th> </tr> <tr> <td>MAGNESIUM</td > <td>1.5 mg/dL</td> <td>1.8-2.4</td& gt; </tr> <tr> <th colspan="10"& gt;GLUCOSE (POC) - 08/10/17 20:37</th> </tr> <tr&gt ; <td>GLUCOSE (POC)</td> <td>165 mg/dL</ td> <td>70-99</td> </tr> <tr> <th colspan="10">GLUCOSE (POC) - 08/11/17 04:22</th > </tr> <tr> <td>GLUCOSE (POC)</td> <td>129 mg/dL</td> <td>70-99</td> </tr> <tr> <th colspan="10"> GLUCOSE(POC) - 08/11/17 11:31</th> </tr> <tr> <td>GLUCOSE (POC)</td> <td>229 mg/dL</td& gt; <td>70-99</td> </tr> <tr> <th colspan="10">GLUCOSE (POC) - 08/11/17 16:48</th&gt ; </tr> <tr> <td>GLUCOSE (POC)</td& gt; <td>172 mg/dL</td> <td>70-99</td> </tr> <tr> <th colspan="10"> GLUCOSE (POC) - 08/11/17 19:46</th> </tr> <tr> <td>GLUCOSE (POC)</td> <td>164 mg/dL</td& gt; <td>70-99</td> </tr> <tr> <th colspan="10">GLUCOSE (POC) - 08/12/17 04:21</th&gt ; </tr> <tr> <td>GLUCOSE (POC)</td> <td>152 mg/dL</td> <td>70-99</td> </tr> <tr> <th colspan="10">CBC W /DIFF - 08/12/17 05:31</th> </tr> <tr> <td>BASOPHIL #</td> <td>0.1 k/cumm</td> <td>0.0-0.2</td> </tr> <tr> & lt;td>BASOPHIL %</td> <td>1.2 %</td& gt; <td>0-1</td> </tr> <tr> <td>EOSINOPHIL #</td> <td>0.4 k/cumm</td> <td>0.1-0.5</td> </tr> <tr> <td>EOSINOPHIL %</td> <td>7.3 %</td > <td>2-4</td> </tr> <tr> <td>GRANULOCYTE #</td> <td>3.2 k/cumm</td&gt ; <td>2.0-9.0</td> </tr> <tr> &lt ;td>GRANULOCYTE %</td> <td>62.7 %</td > <td>50-75</td> </tr> <tr> <td>LYMPHOCYTE #</td> <td>0.7k/cumm</td> <td>1.0-4.0</td> </tr> <tr> < td>LYMPHOCYTE %</td> <td>14.3 %</td& gt; <td>20-30</td> </tr> <tr> <td>MEAN CELL HGB</td> <td>26.4 pg</td> <td>27.0-33.0</td> </tr> <tr> <td>MEAN CELL HGB CONCENTRATION</td> <td>32.0 g /dL</td> <td>32.0-37.0</td> </tr> <tr> <td>MEAN CELL VOLUME</td> <td> 82.5 fl</td> <td>80.0-100.0</td> </tr> <tr> <td>MONOCYTE #</td> <td>0.7 k/cumm& lt;/td> <td>0.1-1.0</td> </tr> < tr> <td>MONOCYTE %</td> <td>13.3 %</td> <td>4-6</td> </tr> <tr> <td>MEAN PLATELET VOLUME</td> <td&gt ;9.5 fl</td> <td>8.5-10.9</td> </tr> & lt;tr> <td>RED BLOOD CELL</td> <td>4.35 m /cumm</td> <td>4.00-6.00</td> </tr> <tr> <td>RED CELL DISTRIBUTION WIDTH</td> < td>14.6 %</td> <td>11.0-15.6</td> </ tr> <tr> <td>WHITE BLOOD CELL</td> <td>5.1 k/cumm</td> <td>5.0-10.0</td> & lt;/tr> <tr> <td>HEMOGLOBIN</td> & lt;td>11.5gm/dL</td> <td>12.0-16.0</td> &lt ;/tr> <tr> <td>HEMATOCRIT</td> <td> 35.9 %</td> <td>37.0-47.0</td> </tr > <tr> <td>NRBC %</td> < td>0.0 /100 WBC</td> <td>0.0-0.0</td> </ tr> <tr> <td>NRBC #</td> <td> 0.00 k/cumm</td> <td>0.03-0.11</td> </tr> <tr> <td>PLATELET COUNT</td> <td> 160 k/cumm</td> <td>150-400</td></tr> & lt;tr> <td>IMMATURE GRANULOCYTE %</td> <td>1.2 %</td> <td>0.0-0.6</td> </tr> <tr> <td>IMMATURE GRANULOCYTE #</td& gt; <td>0.06 k/cumm</td> <td>0.00-0.09</ td> </tr> <tr> <th colspan="10& quot;>RENAL FUNCTION PANEL - 08/12/17 05:31</th> </tr> <tr> <td>POTASSIUM</td> <td>3.3 mmol/L</td> <td>3.5-5.3</td> </tr> <tr> <td>EST GFR (MDRD)</td> <td>& amp;gt; 60 mL/min</td> <td>> 59</td> </tr& gt; <tr> <td>ANION GAP</td> <td&gt ;9 mmol/L</td> <td>5-15</td> </tr> <tr> <td>EST CrCl (CG)</td> <td>& amp;gt; 60 mL/min</td> <td>>59</td> &lt ;/tr> <tr> <td>GLUCOSE</td> <td >147 mg/dL</td> <td>70-99</td> </tr> <tr> <td>CALCIUM</td> <td>9.3 mg/dL</td> <td>8.5-10.1</td> </tr> <tr> <td>BLOOD UREA NITROGEN</td> <td& gt;14 mg/dL</td> <td>7-20</td> </tr> &lt ;tr> <td>CREATININE</td> <td>0.7 mg/dL&lt ;/td> <td>0.6-1.0</td> </tr> <tr> <td>SODIUM</td> <td>134 mmol/L</td> <td>135-148</td> </tr> <tr> & lt;td>CHLORIDE</td> <td>96 mmol/L</td> <td& gt;98-110</td> </tr> <tr> <td> CARBON DIOXIDE</td> <td>29 mmol/L</td> < td>21-32</td> </tr> <tr> <td> ALBUMIN</td> <td>2.9 gm/dL</td> <td> 3.4-5.0</td> </tr> <tr> <td> PHOSPHORUS</td> <td>3.5 mg/dL</td> <td&gt ;2.5-4.9</td> </tr> <tr> <th colspan=&quot ;10">MAGNESIUM - 08/12/17 05:31</th> </tr> &lt ;tr> <td>MAGNESIUM</td> <td>1.5 mg/dL< /td> <td>1.8-2.4</td> </tr> <tr& gt; <th colspan="10">GLUCOSE (POC) - 08/12/17 11:11< /th> </tr> <tr> <td>GLUCOSE (POC)&lt ;/td> <td>224 mg/dL</td> <td>70-99</td > </tr> <tr> <th colspan="10" >GLUCOSE (POC) - 08/12/17 16:43</th> </tr> <tr& gt; <td>GLUCOSE (POC)</td> <td>140 mg/dL</td& gt; <td>70-99</td> </tr> <tr> <th colspan="10">GLUCOSE (POC) - 08/12/17 19:54</th&gt ; </tr> <tr> <td>GLUCOSE (POC)</td& gt; <td>225 mg/dL</td> <td>70-99</td> </tr> <tr> <th colspan="10"> GLUCOSE (POC) - 08/13/17 05:14</th> </tr> <tr> <td>GLUCOSE (POC)</td> <td>159 mg/dL</td& gt; <td>70-99</td> </tr> <tr> <th colspan="10">CBC W/DIFF - 08/13/17 06:09</th> </tr> <tr> <td>BASOPHIL #</td> <td>0.1 k/cumm</td> <td>0.0-0.2</td> </tr> <tr> <td>BASOPHIL %</td& gt; <td>1.1 %</td> <td>0-1</td&gt ; </tr> <tr> <td>EOSINOPHIL #</td&gt ; <td>0.6 k/cumm</td> <td>0.1-0.5</td&gt ; </tr> <tr> <td>EOSINOPHIL %</td& gt; <td>7.1 %</td> <td>2-4</td&gt ; </tr> <tr> <td>GRANULOCYTE #</td& gt; <td>5.2 k/cumm</td> <td>2.0-9.0</td& gt; </tr> <tr> <td>GRANULOCYTE %& lt;/td> <td>64.9 %</td> <td>50-75 </td> </tr> <tr> <td>LYMPHOCYTE # </td> <td>0.9 k/cumm</td> <td>1.0-4.0& lt;/td> </tr> <tr> <td>LYMPHOCYTE & amp;#37;</td> <td>11.4 %</td> <td>20- 30</td> </tr> <tr> <td>MEAN CELL HGB</td> <td>26.8 pg</td><td>27.0-33.0</td& gt; </tr> <tr> <td>MEAN CELL HGBCONCENTRATION</td> <td>32.1 g/dL</td> &lt ;td>32.0-37.0</td> </tr> <tr> <td >MEAN CELL VOLUME</td> <td>83.4 fl</td> & lt;td>80.0-100.0</td> </tr> <tr> &lt ;td>MONOCYTE #</td> <td>1.1 k/cumm</td> & lt;td>0.1-1.0</td> </tr> <tr> <td >MONOCYTE %</td> <td>13.9 %</td> <td>4-6</td> </tr> <tr> <td>MEAN PLATELET VOLUME</td> <td>9.4 fl</td> <td>8.5-10.9</td> </tr> <tr> <td>RED BLOOD CELL</td> <td>4.71 m/cumm</td& gt; <td>4.00-6.00</td> </tr> <tr&gt ; <td>RED CELL DISTRIBUTION WIDTH</td> <td> 14.7 %</td> <td>11.0-15.6</td> </tr > <tr> <td>WHITE BLOOD CELL</td> & lt;td>8.0 k/cumm</td> <td>5.0-10.0</td> &lt ;/tr> <tr> <td>HEMOGLOBIN</td> &lt ;td>12.6 gm/dL</td> <td>12.0-16.0</td> < /tr> <tr> <td>HEMATOCRIT</td> < td>39.3 %</td> <td>37.0-47.0</td> & lt;/tr> <tr> <td>NRBC %</td> <td>0.0 /100 WBC</td> <td>0.0-0.0</td> </ tr> <tr> <td>NRBC #</td> <td&gt ;0.00 k/cumm</td> <td>0.03-0.11</td> </tr& gt; <tr> <td>PLATELET COUNT</td> < td>207 k/cumm</td> <td>150-400</td> </tr > <tr> <td>IMMATURE GRANULOCYTE %</td& gt; <td>1.6 %</td> <td>0.0-0.6</ td> </tr> <tr> <td>IMMATURE GRANULOCYTE #</td> <td>0.13 k/cumm</td> < td>0.00-0.09</td> </tr> <tr> <th colspan="10">RENAL FUNCTION PANEL - 08/13/17 06:09</th> </tr> <tr> <td>POTASSIUM</td> < td>3.6 mmol/L</td> <td>3.5-5.3</td> </tr > <tr> <td>EST GFR (MDRD)</td> &lt ;td>> 60 mL/min</td> <td>> 59</td> </tr> <tr> <td>ANION GAP</td> <td>7 mmol/L</td> <td>5-15</td> </tr& gt; <tr> <td>EST CrCl (CG)</td> < td>> 60 mL/min</td> <td>> 59</td> </tr> <tr> <td>GLUCOSE</td> <td>160 mg/dL</td> <td>70-99</td> & lt;/tr> <tr> <td>CALCIUM</td> < td>9.1 mg/dL</td> <td>8.5-10.1</td> </tr > <tr> <td>BLOOD UREA NITROGEN</td> <td>12 mg/dL</td><td>7-20</td> </tr> <tr> <td>CREATININE</td> <td>0.8 mg/dL</td> <td>0.6-1.0</td> </tr> & lt;tr> <td>SODIUM</td> <td>133 mmol/L< /td> <td>135-148</td> </tr> <tr> <td>CHLORIDE</td> <td>95 mmol/L</td> <td>98-110</td> </tr> <tr> <td>CARBON DIOXIDE</td> <td>31 mmol/L</td> <td>21-32</td> </tr> <tr> & lt;td>ALBUMIN</td> <td>3.3 gm/dL</td> &lt ;td>3.4-5.0</td> </tr> <tr> <td& gt;PHOSPHORUS</td> <td>3.4 mg/dL</td> <td >2.5-4.9</td> </tr> <tr> <th colspan="10">MAGNESIUM - 08/13/17 06:09</th> </tr& gt; <tr> <td>MAGNESIUM</td> <td> 1.4 mg/dL</td> <td>1.8-2.4</td> </tr> <tr> <th colspan="10">GLUCOSE (POC) - 08/13 09:58</th> </tr> <tr> <td> GLUCOSE (POC)</td> <td>166 mg/dL</td> <td >70-99</td> </tr> </tbody> </table> & lt;/text> <entry> <organizer moodCode="EVN" classCode= "BATTERY"> <templateId root=" [id number]" /> <id nullFlavor="NA&quot ; /> <code codeSystem="local" code="HGB" displayName="HEMOGLOBIN" /> <statusCode code=" completed" /> <component> <observation moodCode=& quot;EVN" classCode="OBS"> <templateId root=" [id number]" /> <id nullFlavor="NA& quot; /> <code codeSystem="local" code="MCV" displayName="MEAN CELL VOLUME" /> <statusCode code=& quot;completed" /> <effectiveTime value="[id number]& quot; /> <value unit="fl" xsi:type="PQ" value ="78.2" /> <interpretationCode codeSystem="local& quot; code="*" /> <referenceRange> < observationRange> <text>80.0-100.0</text> </observationRange> </referenceRange> </ observation> </component> <component> < observation moodCode="EVN" classCode="OBS"> < templateId root="[id number]" /> < id nullFlavor="NA" /> <code codeSystem="local&quot ; code="HGBT" displayName="HEMOGLOBIN" /> < statusCode code="completed" /> <effectiveTime value=& quot;395019579369" /> <value unit="gm/dL" xsi:type ="PQ" value="7.9" /> <interpretationCode codeSystem="local" code="*" /> < referenceRange> <observationRange> <text>12.0- 16.0</text> </observationRange> </ referenceRange> </observation> </component> </ organizer> </entry> <entry> <organizer moodCode="EVN " classCode="BATTERY"> <templateId root=" [id number]" /> <id nullFlavor="NA&quot ; /> <code codeSystem="local" code="METAB" displayName="METABOLIC PANEL, BASIC" /> <statusCode code=& quot;completed" /> <component> <observation moodCode="EVN" classCode="OBS"> <templateId root="[id number]" /> <id nullFlavor ="NA" /> <code codeSystem="local" code=" K" displayName="POTASSIUM" /> <statusCode code=& quot;completed" /> <effectiveTime value="[id number]& quot; /> <value unit="mmol/L" xsi:type="PQ" value="3.8" /> <referenceRange> < observationRange> <text>3.5-5.3</text> </ observationRange> </referenceRange> </observation&gt ; </component> <component> <observation moodCode ="EVN" classCode="OBS"> <templateId root=& quot;[id number]" /> <id nullFlavor=&quot ;NA" /> <code codeSystem="local" code="eGFR& quot; displayName="EST GFR (MDRD)" /> <statusCode code=" completed" /> <effectiveTime value="328447532503" /> <value unit="mL/min" xsi:type="PQ" value=& quot;>60" /> <referenceRange> < observationRange> <text>> 59</text> </observationRange> </referenceRange> </ observation> </component> <component> < observation moodCode="EVN" classCode="OBS"> < templateId root="[id number]..22.4.2" /> < id nullFlavor="NA" /> <code codeSystem="local&quot ; code="GAP" displayName="ANION GAP" /> < statusCode code="completed" /> <effectiveTime value=& quot;845749965289" /> <value unit="mmol/L" xsi: type="PQ" value="8" /> <referenceRange> <observationRange> <text>5-15</text> </observationRange> </referenceRange> </ observation> </component> <component> < observation moodCode="EVN" classCode="OBS"> < templateId root="[id number]..22.4.2" /> < id nullFlavor="NA" /> <code codeSystem="local&quot ; code="eCrCl" displayName="EST CrCl (CG)" /> & lt;statusCode code="completed" /> <effectiveTime value= "[id number]" /> <value unit="mL/min" xsi: type="PQ" value="49" /> <interpretationCode codeSystem="local" code="*" /> < referenceRange> <observationRange> <text>&gt ; 59</text> </observationRange> </ referenceRange> </observation> </component> < component> <observation moodCode="EVN" classCode=" OBS"> <templateId root="[id number]& quot; /> <id nullFlavor="NA" /> <code codeSystem="local" code="GLU" displayName="GLUCOSE&quot ; /> <statusCode code="completed" /> < effectiveTime value="968578157385" /> <value unit=&quot ;mg/dL" xsi:type="PQ" value="146" /> < interpretationCode codeSystem="local" code="*" /> <referenceRange> <observationRange> <text&gt ;70-99</text> </observationRange> </ referenceRange> </observation> </component> < component> <observation moodCode="EVN" classCode=" OBS"> <templateId root="[id number]& quot; /> <id nullFlavor="NA" /> <code codeSystem="local" code="CA" displayName="CALCIUM&quot ; /> <statusCode code="completed" /> < effectiveTime value="344170392171" /> <value unit=&quot ;mg/dL" xsi:type="PQ" value="8.5" /> < referenceRange> <observationRange> <text> 8.5-10.1</text> </observationRange> </ referenceRange> </observation> </component> < component> <observation moodCode="EVN" classCode=" OBS"> <templateId root="[id number]& quot; /> <id nullFlavor="NA" /> <code codeSystem="local" code="BUN" displayName="BLOOD UREA NITROGEN" /> <statusCode code="completed" /> <effectiveTime value="223595365972" /> <value unit="mg/dL" xsi:type="PQ" value="8" /> <referenceRange> <observationRange> < text>7-20</text> </observationRange> </ referenceRange> </observation></component> < component> <observation moodCode="EVN" classCode=" OBS"> <templateId root="2.16.840.1.536785.10.20.22.4.2& quot; /> <id nullFlavor="NA" /> <code codeSystem="local" code="CREAT" displayName="CREATININE " /> <statusCode code="completed" /> & lt;effectiveTime value="546403700368" /> <value unit=& quot;mg/dL" xsi:type="PQ" value="0.8" /> & lt;referenceRange> <observationRange> <text> 0.6-1.0</text> </observationRange> </ referenceRange> </observation> </component> < component> <observation moodCode="EVN" classCode=" OBS"> <templateId root="2.16.840.1.427640.10.20.22.4.2& quot; /> <id nullFlavor="NA" /> <code codeSystem="local" code="NA" displayName="SODIUM" /> <statusCode code="completed" /> < effectiveTime value="980347305084" /> <value unit=&quot ;mmol/L" xsi:type="PQ" value="136" /> < referenceRange> <observationRange> <text> 135-148</text> </observationRange></referenceRange&gt ; </observation> </component> <component> <observation moodCode="EVN" classCode="OBS"> <templateId root="2.16.840.1.453808.10.20.22.4.2" /> <id nullFlavor="NA" /> <code codeSystem="local " code="CL" displayName="CHLORIDE" /> < statusCode code="completed" /> <effectiveTime value=& quot;853343803457" /> <value unit="mmol/L" xsi: type="PQ" value="97" /> <interpretationCode codeSystem="local" code="*" /> < referenceRange> <observationRange> <text> 98-110</text> </observationRange> </ referenceRange> </observation> </component> < component> <observation moodCode="EVN" classCode=" OBS"> <templateId root="2.16.840.1.698022.10.20.22.4.2& quot; /> <id nullFlavor="NA" /> <code codeSystem="local" code="CO2" displayName="CARBON DIOXIDE" /> <statusCode code="completed" /> <effectiveTime value="431174252971" /> <value unit=& quot;mmol/L" xsi:type="PQ" value="31" /> & lt;referenceRange> <observationRange> <text& gt;21-32</text> </observationRange> </ referenceRange> </observation> </component> </ organizer> </entry> <entry> <organizer moodCode="EVN " classCode="BATTERY"> <templateId root=" 2.16.840.1.822516.10.20.22.4.1" /> <id nullFlavor="NA&quot ; /> <code codeSystem="local" code="GLUMON" displayName="GLUCOSE (POC)" /> <statusCode code=" completed" /> <component> <observation moodCode=& quot;EVN" classCode="OBS"> <templateId root=" 2.16.840.1.831719.10.20.22.4.2" /> <id nullFlavor="NA& quot; /> <code codeSystem="local" code="GLUMON& quot; displayName="GLUCOSE (POC)" /> <statusCode code=& quot;completed" /> <effectiveTime value="196207708436& quot; /> <value unit="mg/dL" xsi:type="PQ" value="147" /> <interpretationCode codeSystem=" local" code="*" /> <referenceRange> < observationRange> <text>70-99</text> < /observationRange> </referenceRange> </observation& gt; </component> </organizer> </entry> <entry&gt ; <organizer moodCode="EVN" classCode="BATTERY"> <templateId root="2.16.840.1.558653.10.20.22.4.1" /> & lt;id nullFlavor="NA" /> <code codeSystem="local&quot ; code="CBCD" displayName="CBC W/DIFF" /> < statusCode code="completed" /> <component> < observation moodCode="EVN" classCode="OBS"> < templateId root="2.16.840.1.862175.10.20.22.4.2" /> < id nullFlavor="NA" /> <code codeSystem="local&quot ; code="BA#" displayName="BASOPHIL #" /> < statusCode code="completed" /> <effectiveTime value=& quot;785319460346" /> <value unit="k/cumm" xsi: type="PQ" value="0.2" /> <referenceRange> <observationRange> <text>0.0-0.2</text& gt; </observationRange> </referenceRange> </observation> </component> <component> < observation moodCode="EVN" classCode="OBS"> < templateId root="2.16.840.1.917110.10.20.22.4.2" /> < id nullFlavor="NA" /> <code codeSystem="local" code="BA%" displayName="BASOPHIL %" /> <statusCode code="completed" /> < effectiveTime value="471131885222" /> <value unit=&quot ;%" xsi:type="PQ" value="1" /> < referenceRange> <observationRange> <text> 0-1</text> </observationRange> </ referenceRange> </observation> </component> < component> <observation moodCode="EVN" classCode=" OBS"> <templateId root="2.16.840.1.232737.10.20.22.4.2& quot; /> <id nullFlavor="NA" /> <code codeSystem= "local" code="BSTP" displayName="BASOPHILIC STIPPLING& quot; /> <statusCode code="completed" /> & lt;effectiveTime value="281447295990" /> <value unit=& quot;" xsi:type="PQ" value="NOTED" /> < referenceRange> <observationRange> <text /> </observationRange> </referenceRange> </ observation> </component> <component> < observation moodCode="EVN" classCode="OBS"> < templateId root="2.16.840.1.136206.10..22.4.2" /> < id nullFlavor="NA" /> <code codeSystem="local&quot ; code="CBCCOM" displayName="COMMENT" /> < statusCode code="completed" /> <effectiveTime value=& quot;183737220033" /> <value unit="" xsi:type=& quot;PQ" value="" /> <referenceRange> <observationRange> <text /> </ observationRange> </referenceRange> </observation&gt ; </component> <component> <observation moodCode ="EVN" classCode="OBS"> <templateId root=" 2.16.840.1.989282.10.20.22.4.2" /> <id nullFlavor="NA& quot; /> <code codeSystem="local" code="EO#" displayName="EOSINOPHIL #" /> <statusCode code=" completed" /> <effectiveTime value="628564692911" /> <value unit="k/cumm" xsi:type="PQ" value=& quot;0.2" /> <referenceRange> < observationRange> <text>0.1-0.5</text> & lt;/observationRange> </referenceRange> </observation> </component> <component> <observation moodCode=&quot ;EVN" classCode="OBS"> <templateIdroot=" 2.16.840.1.220743.10.20.22.4.2" /> <id nullFlavor="NA& quot; /> <code codeSystem="local" code="EO&#37 ;" displayName="EOSINOPHIL %" /> < statusCode code="completed" /> <effectiveTime value=& quot;486031990250" /> <value unit="%" xsi: type="PQ" value="1" /> <interpretationCode codeSystem="local" code="*" /> < referenceRange> <observationRange> <text>2-4< /text> </observationRange> </referenceRange> </observation> </component> <component> <observation moodCode="EVN" classCode="OBS"> <templateId root="2..840.1.517515.10..22.4.2" /> <id nullFlavor="NA" /> <code codeSystem=" local" code="GR#" displayName="GRANULOCYTE #" /> &lt ;statusCode code="completed" /> <effectiveTime value=& quot;387800961045" /> <value unit="k/cumm" xsi: type="PQ" value="14.1" /> < interpretationCode codeSystem="local" code="*" /> < referenceRange> <observationRange> <text> 2.0-9.0</text> </observationRange> </ referenceRange> </observation> </component> < component> <observation moodCode="EVN" classCode=" OBS"> <templateId root="2.16.840.1.334793.10.20.22.4.2& quot; /> <id nullFlavor="NA" /> <code codeSystem="local" code="LY#" displayName="LYMPHOCYTE # " /> <statusCode code="completed" /> & lt;effectiveTime value="578660036597" /> <value unit=& quot;k/cumm" xsi:type="PQ" value="2.4" /> & lt;referenceRange> <observationRange> <text& gt;1.0-4.0</text> </observationRange> </ referenceRange> </observation> </component> < component> <observation moodCode="EVN" classCode=" OBS"> <templateId root="2.16.840.1.243746.10.20.22.4.2& quot; /> <id nullFlavor="NA" /> <code codeSystem="local" code="LY%" displayName=" LYMPHOCYTE %" /> <statusCode code="completed& quot; /> <effectiveTime value="496296593632" /> <value unit="%" xsi:type="PQ" value=" 12" /> <interpretationCode codeSystem="local" code ="*" /> <referenceRange> <observationRange> <text>20-30</text> </observationRange&gt ; </referenceRange> </observation> </ component> <component> <observation moodCode="EVN& quot; classCode="OBS"><templateId root=" 2.16.840.1.417704.10.20.22.4.2" /> <id nullFlavor="NA& quot; /> <code codeSystem="local" code="MCH" displayName="MEAN CELL HGB" /> <statusCode code=" completed" /> <effectiveTime value="278884612463" /> <value unit="pg" xsi:type="PQ" value=&quot ;29.4" /> <referenceRange> < observationRange> <text>27.0-33.0</text> </observationRange> </referenceRange> </ observation> </component> <component> < observation moodCode="EVN" classCode="OBS"> < templateId root="2.16.840.1.637092.10.20.22.4.2" /> < id nullFlavor="NA" /> <code codeSystem="local" code="[facility]" displayName="MEAN CELL HGB CONCENTRATION" /> <statusCode code="completed" /> < effectiveTime value="673589977946" /> <value unit=&quot ;g/dL" xsi:type="PQ" value="27.9" /> < interpretationCode codeSystem="local" code="*" /> <referenceRange> <observationRange> <text>32.0- 37.0</text> </observationRange> </ referenceRange> </observation> </component> < component> <observation moodCode="EVN" classCode=" OBS"> <templateId root="2.16.840.1.126035.10.20.22.4.2& quot; /> <id nullFlavor="NA" /> < codecodeSystem="local" code="MCV" displayName="MEAN CELL VOLUME" /> <statusCode code="completed" /> <effectiveTime value="189091728474" /> <value unit="fl" xsi:type="PQ" value="105.6" /> <interpretationCode codeSystem="local" code="*" /&gt ; <referenceRange> <observationRange> < text>80.0-100.0</text> </observationRange> & lt;/referenceRange> </observation> </component> <component> <observation moodCode="EVN"classCode=&quot ;OBS"> <templateId root="2.16.840.1.559860.10.20.22.4.2 " /> <id nullFlavor="NA" /> <code codeSystem="local" code="MO#" displayName="MONOCYTE #& quot; /> <statusCode code="completed" /> & lt;effectiveTime value="550740431550" /> <value unit=& quot;k/cumm" xsi:type="PQ" value="2.2" /> & lt;interpretationCode codeSystem="local" code="*" /> <referenceRange> <observationRange> <text& gt;0.1-1.0</text> </observationRange> </ referenceRange> </observation> </component>< component> <observation moodCode="EVN" classCode=" OBS"> <templateId root="2.16.840.1.880686.10.20.22.4.2" /> <id nullFlavor="NA" /> <code codeSystem="local" code="MO%" displayName=" MONOCYTE %" /> <statusCode code="completed&quot ; /> <effectiveTime value="650930707172" /> <value unit="%" xsi:type="PQ" value="11&quot ; /> <interpretationCode codeSystem="local" code=" *" /> <referenceRange> <observationRange&gt ; <text>4-6</text> </observationRange&gt ; </referenceRange> </observation> </ component> <component> <observation moodCode="EVN&quot ; classCode="OBS"> <templateId root=" 2.16.840.1.451062.10.20.22.4.2" /> <id nullFlavor="NA& quot; /> <code codeSystem="local" code="NRBC" displayName="NUCLEATED RED BLOOD CELL" /> <statusCode code="completed" /> <effectiveTime value=" 752758562879" /> <value unit="/100WBC" xsi:type=& quot;PQ" value="11" /> <interpretationCode codeSystem="local" code="*" /> < referenceRange> <observationRange> <text /> </observationRange> </referenceRange> </ observation> </component> <component> < observation moodCode="EVN" classCode="OBS"> < templateId root="2.16.840.1.326801.10.20.22.4.2" /> < id nullFlavor="NA" /> <code codeSystem="local&quot ; code="POLC" displayName="POLYCHROMASIA" /> &lt ;statusCode code="completed" /> <effectiveTime value=& quot;128783122928" /> <value unit="" xsi:type="PQ& quot; value="MARKED" /> <referenceRange> <observationRange> <text /> </ observationRange> </referenceRange> </observation&gt ; </component> <component> <observation moodCode= "EVN" classCode="OBS"> <templateId root=" 2.16.840.1.049900.10.20.22.4.2" /> <id nullFlavor="NA& quot; /> <code codeSystem="local" code="RBC" displayName="RED BLOOD CELL" /> <statusCode code=" completed" /> <effectiveTime value="728711177077" /> <value unit="m/cumm" xsi:type="PQ" value=" 1.97" /> <interpretationCode codeSystem="local" code="*" /> <referenceRange> < observationRange> <text>4.00-6.00</text> </observationRange> </referenceRange> </ observation> </component> <component> <observation moodCode="EVN" classCode="OBS"> <templateId root="2.16.840.1.981458.10.20.22.4.2" /> <id nullFlavor ="NA" /> <code codeSystem="local" code="RDW& quot; displayName="RED CELL DISTRIBUTION WIDTH" /> < statusCode code="completed" /> <effectiveTime value=& quot;480178259780" /> <value unit="%" xsi: type="PQ" value="28.2" /> < interpretationCode codeSystem="local"code="*" /> <referenceRange> <observationRange> <text> 11.0-15.6</text> </observationRange> </ referenceRange> </observation> </component> < component> <observation moodCode="EVN" classCode=" OBS"> <templateId root="2.16.840.1.534367.10.20.22.4.2& quot; /> <id nullFlavor="NA" /> <code codeSystem="local" code="TEAR" displayName="TEAR DROP CELLS" /> <statusCode code="completed" /> <effectiveTime value="660698885300" /> <value unit="" xsi:type="PQ" value="NOTED" /> <referenceRange> <observationRange> < text /> </observationRange> </referenceRange&gt ; </observation> </component> <component> <observation moodCode="EVN" classCode="OBS"> <templateId root="2.16.840.1.125391.10.20.22.4.2" /> <id nullFlavor="NA" /> <code codeSystem=" local" code="WBC" displayName="WHITE BLOOD CELL" /> <statusCode code="completed" /> < effectiveTime value="362420250378" /> <value unit=&quot ;k/cumm" xsi:type="PQ" value="20.2" /> < interpretationCode codeSystem="local" code="*" /> <referenceRange> <observationRange> <text&gt ;5.0-10.0</text> </observationRange> </ referenceRange> </observation> </component> < component> <observation moodCode="EVN" classCode=" OBS"> <templateId root="2.16.840.1.312605.10.20.22.4.2& quot; /> <id nullFlavor="NA" /> <code codeSystem="local" code="HGBT" displayName="HEMOGLOBIN& quot; /> <statusCode code="completed" /> & lt;effectiveTime value="456756997343" /> <value unit=& quot;gm/dL" xsi:type="PQ" value="5.8" /> & lt;interpretationCode codeSystem="local" code="" /> <referenceRange> <observationRange> < text>12.0-16.0</text> </observationRange> &lt ;/referenceRange> </observation> </component> & lt;component> <observation moodCode="EVN" classCode=&quot ;OBS"> <templateId root="2.16.840.1.635362.10.20.22.4.2 " /> <id nullFlavor="NA" /><code codeSystem= "local" code="HCTT" displayName="HEMATOCRIT" /&gt ; <statusCode code="completed" /> < effectiveTime value="762134895063" /> <value unit=&quot ;%" xsi:type="PQ" value="20.8" /> & lt;interpretationCode codeSystem="local" code="*" /> <referenceRange> <observationRange> & lt;text>37.0-47.0</text> </observationRange> </referenceRange> </observation> </component> <component> <observation moodCode="EVN" classCode=& quot;OBS"> <templateId root=" 2.16.840.1.093486.10.20.22.4.2" /> <id nullFlavor="NA& quot; /> <code codeSystem="local" code="PLT" displayName="PLATELET COUNT" /> <statusCode code=" completed" /> <effectiveTime value="136604625102" /> <value unit="k/cumm" xsi:type="PQ" value=" 280" /> <referenceRange> <observationRange& gt; <text>150-400</text> </ observationRange> </referenceRange> </observation&gt ; </component> </organizer> </entry> <entry> <organizer moodCode="EVN" classCode="BATTERY"> & lt;templateId root="2.16.840.1.855513.10.20.22.4.1" /> <id nullFlavor="NA" /> <code codeSystem="local" code= "DIFFM" displayName="MANUAL DIFF(R)" /> < statusCode code="completed" /> <component> < observation moodCode="EVN"classCode="OBS"> < templateId root="2.16.840.1.230901.10.20.22.4.2" /> < id nullFlavor="NA" /> <code codeSystem="local&quot ; code="BAND%" displayName="BAND %" /> <statusCodecode="completed" /> < effectiveTime value="045288089011" /> <value unit="&amp ;#37;" xsi:type="PQ" value="4" /><referenceRange& gt; <observationRange> <text>0-10</text& gt; </observationRange> </referenceRange> </observation> </component> <component> < observation moodCode="EVN" classCode="OBS"> < templateId root="2.16.840.1.513352.10.20.22.4.2" /> <id nullFlavor="NA" /> <code codeSystem="local" code="MANDIFF" displayName="DIFFERENTIAL" /> &lt ;statusCode code="completed" /> <effectiveTime value=& quot;995804465092" /> <value unit="" xsi:type=& quot;PQ" value="MANUAL" /> <referenceRange> <observationRange> <text /> </ observationRange> </referenceRange> </observation&gt ; </component> <component> <observation moodCode ="EVN" classCode="OBS"> <templateId root=& quot;2.16.840.1.023374.10.20.22.4.2" /> <id nullFlavor=&quot ;NA" /> <code codeSystem="local" code="META& amp;#37;" displayName="METAMYELOCYTE %" /> & lt;statusCode code="completed" /> <effectiveTime value=& quot;539458788817" /> <value unit="%" xsi: type="PQ" value="3" /> <interpretationCode codeSystem="local" code="*" /> < referenceRange> <observationRange> <text /& gt; </observationRange> </referenceRange> </observation> </component> <component> &lt ;observation moodCode="EVN" classCode="OBS"> &lt ;templateId root="2.16.840.1.459303.10.20.22.4.2" /> < id nullFlavor="NA" /> <code codeSystem="local&quot ; code="MYELO%" displayName="MYELOCYTE %" /& gt; <statusCode code="completed" /> < effectiveTime value="038364444546" /> <value unit=&quot ;%" xsi:type="PQ"value="2" /> < interpretationCode codeSystem="local" code="*" /> <referenceRange> <observationRange> < text/> </observationRange> </referenceRange> </observation> </component> <component> <observation moodCode="EVN" classCode="OBS"> <templateId root="2.16.840.1.717371.10.20.22.4.2" /> <id nullFlavor="NA" /> <code codeSystem=" local" code="SEG%" displayName="SEGMENTED NEUTROPHIL %" /> <statusCode code="completed& quot; /> <effectiveTime value="913770099399" /> <value unit="%" xsi:type="PQ" value=" 66" /> <referenceRange> <observationRange& gt; <text>50-70</text> </observationRange > </referenceRange> </observation> </ component> </organizer> </entry> <entry> < organizer moodCode="EVN" classCode="BATTERY"> < templateId root="2.16.840.1.221713.10.20.22.4.1" /> <id nullFlavor="NA" /> <code codeSystem="local" code= "LIVER" displayName="HEPATIC FUNCTION PANEL" /> < statusCode code="completed" /> <component> < observation moodCode="EVN" classCode="OBS"> < templateId root="2.16.840.1.110374.10.20.22.4.2" /> < id nullFlavor="NA" /> <code codeSystem="local&quot ; code="BILUC" displayName="BILI UNCONJUGATED" /> < statusCode code="completed" /> <effectiveTime value=& quot;353743500335" /> <value unit="mg/dL" xsi:type ="PQ" value="0.2" /> <referenceRange> <observationRange> <text>0.0-0.7</text> </observationRange> </referenceRange> &lt ;/observation> </component> <component> < observation moodCode="EVN" classCode="OBS"> < templateId root="2.16.840.1.495198.10.20.22.4.2" /> < id nullFlavor="NA" /> <code codeSystem="local&quot ; code="AST" displayName="AST/SGOT" /> < statusCode code="completed" /> <effectiveTime value=& quot;387322092297" /> <value unit="Units/L" xsi: type="PQ" value="40" /> <interpretationCode codeSystem="local" code="*" /> < referenceRange> <observationRange> <text> 10-37</text> </observationRange> </ referenceRange> </observation> </component> < component> <observation moodCode="EVN" classCode=" OBS"> <templateId root="2.16.840.1.596993.10.20.22.4.2& quot; /> <id nullFlavor="NA" /> <code codeSystem="local" code="ALT" displayName="ALT/SGPT& quot; /> <statusCode code="completed" /> & lt;effectiveTime value="215201260666" /> <value unit=& quot;Units/L" xsi:type="PQ" value="32" /> & lt;referenceRange> <observationRange> <text& gt;< 66</text> </observationRange> </ referenceRange> </observation> </component> < component> <observation moodCode="EVN" classCode=" OBS"> <templateId root="2.16.840.1.783501.10.20.22.4.2& quot; /> <id nullFlavor="NA" /> <code codeSystem="local" code="TP" displayName="TOTAL PROTEIN " /> <statusCode code="completed" /> & lt;effectiveTimevalue="292813764767" /> <value unit=& quot;gm/dL" xsi:type="PQ" value="5.8" /> & lt;interpretationCode codeSystem="local" code="*" /> <referenceRange> <observationRange> & lt;text>6.4-8.2</text> </observationRange> & lt;/referenceRange> </observation> </component> < component> <observation moodCode="EVN" classCode=" OBS"> <templateId root="2.16.840.1.358455.10.20.22.4.2& quot; /> <id nullFlavor="NA" /> <code codeSystem="local" code="ALB" displayName="ALBUMIN&quot ; /> <statusCode code="completed" /> < effectiveTime value="636580461972" /> <value unit="gm /dL" xsi:type="PQ" value="2.7" />< interpretationCode codeSystem="local" code="*" /> <referenceRange> <observationRange> < text>3.4-5.0</text></observationRange> </ referenceRange> </observation> </component> < component> <observation moodCode="EVN" classCode=" OBS"> <templateId root="2.16.840.1.908320.10.20.22.4.2& quot; /> <id nullFlavor="NA" /> <code codeSystem="local" code="BILTOT" displayName="BILI TOTAL" /> <statusCode code="completed" /> <effectiveTime value="994005526594" /> <value unit="mg/dL" xsi:type="PQ" value="0.5" /> <referenceRange> <observationRange> <text> 0.0-1.0</text> </observationRange> </ referenceRange> </observation> </component> < component> <observation moodCode="EVN" classCode=" OBS"> <templateId root="2.16.840.1.847897.10.20.22.4.2" /& gt; <id nullFlavor="NA" /> <code codeSystem ="local" code="ALKP" displayName="ALKALINE PHOSPHATASE TOTAL" /> <statusCode code="completed" /> <effectiveTime value="635140266726" /> <value unit ="IU/L" xsi:type="PQ" value="162" /> & lt;interpretationCode codeSystem="local" code="*" /> <referenceRange> <observationRange> & lt;text>45-117</text> </observationRange> &lt ;/referenceRange> </observation> </component> & lt;component> <observation moodCode="EVN" classCode="OBS& quot;> <templateId root="2.16.840.1.050892.10.20.22.4.2&quot ; /> <id nullFlavor="NA" /> <code codeSystem= "local" code="BILC" displayName="BILI CONJUGATED" /> <statusCode code="completed" /> < effectiveTime value="477368295164" /> <value unit=&quot ;mg/dL" xsi:type="PQ" value="0.3" /> < referenceRange> <observationRange> <text>0.0-0.3< /text> </observationRange> </referenceRange> </observation> </component> </organizer> < /entry> <entry> <organizer moodCode="EVN" classCode=& quot;BATTERY"> <templateId root=" 2.16.840.1.146566.10.20.22.4.1" /> <id nullFlavor="NA&quot ; /> <code codeSystem="local" code="LIP" displayName="LIPASE" /> <statusCode code="completed& quot; /> <component> <observation moodCode="EVN& quot; classCode="OBS"> <templateId root=" 2.16.840.1.660389.10.20.22.4.2" /> <id nullFlavor="NA& quot; /> <code codeSystem="local" code="LIP" displayName="LIPASE" /> <statusCode code=" completed" /> <effectiveTime value="805698268053" /> <value unit="Units/L" xsi:type="PQ" value= "144" /> <referenceRange> < observationRange> <text>73-393</text> &lt ;/observationRange> </referenceRange> </observation& gt; </component> </organizer> </entry> <entry&gt ; <organizer moodCode="EVN" classCode="BATTERY"> <templateId root="2.16.840.1.288478.10.20.22.4.1" /> & lt;id nullFlavor="NA" /> <code codeSystem="local&quot ; code="BNP" displayName="B-TYPE NATRIURETIC PEPTIDE" /> <statusCode code="completed" /> <component> <observation moodCode="EVN" classCode="OBS"> <templateId root="2.16.840.1.646980.10.20.22.4.2" /> <id nullFlavor="NA" /> <code codeSystem=" local" code="BNP" displayName="B-TYPE NATRIURETIC PEPTIDE& quot; /> <statusCode code="completed" /> < effectiveTime value="645426131395" /> <value unit=&quot ;pg/mL" xsi:type="PQ" value="32" /> < referenceRange> <observationRange> <text> < 100</text> </observationRange> </ referenceRange> </observation> </component> </ organizer> </entry> <entry> <organizer moodCode="EVN& quot; classCode="BATTERY"> <templateId root=" 2.16.840.1.892905.10.20.22.4.1" /> <id nullFlavor="NA&quot ; /> <code codeSystem="local" code="TROPI" displayName="TROPONIN I" /> <statusCode code="completed& quot; /> <component> <observation moodCode="EVN& quot; classCode="OBS"> <templateId root=" 2.16.840.1.260153.10.20.22.4.2" /> <id nullFlavor="NA& quot; /> <code codeSystem="local" code="TROPI&quot ; displayName="TROPONIN I" /> <statusCode code=" completed" /> <effectiveTime value="826556156814" /> <value unit="ng/mL" xsi:type="PQ" value=& quot;< 0.02"/> <referenceRange> < observationRange> <text>< 0.07</text> </observationRange> </referenceRange> </observation > </component> </organizer> </entry> <entry&gt ; <organizer moodCode="EVN" classCode="BATTERY"> <templateId root="2.16.840.1.471815.10.20.22.4.1" /> < id nullFlavor="NA" /> <code codeSystem="local" code="PT" displayName="PROTHROMBIN TIME WITH INR" /> <statusCode code="completed" /> <component> <observation moodCode="EVN" classCode="OBS"> <templateId root="2.16.840.1.930767.10.20.22.4.2" /> & lt;id nullFlavor="NA" /> <code codeSystem="local& quot; code="INRX" displayName="INTERNATIONAL NORMAL RATIO" / > <statusCode code="completed" /> < effectiveTime value="701560980349" /> <value unit=&quot ;" xsi:type="PQ" value="0.9" /> < referenceRange> <observationRange> <text> 0.9-1.1</text> </observationRange> </ referenceRange> </observation> </component> < component> <observation moodCode="EVN" classCode=" OBS"> <templateId root="2.16.840.1.960922.10.20.22.4.2& quot; /> <id nullFlavor="NA" /> <code codeSystem="local" code="PTPAT" displayName=" PROTHROMBIN TIME" /> <statusCode code="completed" /> <effectiveTime value="396146861066" /> < value unit="sec" xsi:type="PQ" value="10.3" /> <referenceRange> <observationRange> <text>9.3-12.2</text> </observationRange> </referenceRange> </observation> </component> </organizer> </entry> <entry> <organizer moodCode= "EVN" classCode="BATTERY"> <templateId root=&quot ;2.16.840.1.952477.10.20.22.4.1" /> <id nullFlavor="NA&quot ; /> <code codeSystem="local" code="PTT" displayName="PARTIAL THROMBOPLASTIN TIME" /> <statusCode code="completed" /> <component> <observation moodCode="EVN" classCode="OBS"> <templateId root="2.16.840.1.123280.10..22.4.2" /> <id nullFlavor ="NA" /> <code codeSystem="local" code=" PTT" displayName="PARTIAL THROMBOPLASTIN TIME"/> < statusCode code="completed" /> <effectiveTime value=& quot;212126669191" /> <value unit="sec" xsi:type=& quot;PQ" value="36" /> <referenceRange> <observationRange> <text>24-36</text> </observationRange> </referenceRange> </ observation> </component> </organizer> </entry> & lt;entry> <organizer moodCode="EVN" classCode="BATTERY& quot;> <templateId root="2.16.840.1.735946.10.20.22.4.1" /& gt; <id nullFlavor="NA" /> <code codeSystem=" local" code="iCHEM8" displayName="CHEM/HEM PROFILE-BEDSIDE& quot; /> <statusCode code="completed" /> < component> <observation moodCode="EVN" classCode=" OBS"> <templateId root="2.16.840.1.721069.10..22.4.2& quot; /> <id nullFlavor="NA" /> <code codeSystem="local" code="K" displayName="POTASSIUM&quot ; /> <statusCode code="completed" /> < effectiveTime value="883816152523" /> <value unit=&quot ;mmol/L" xsi:type="PQ" value="5.0" /> < referenceRange> <observationRange> <text> 3.5-5.3</text> </observationRange> </ referenceRange> </observation> </component> < component> <observation moodCode="EVN" classCode=" OBS"> <templateId root="2.16.840.1.722286.10.20.22.4.2& quot; /> <id nullFlavor="NA" /> <code codeSystem="local" code="CMETHOD" displayName="METHOD& quot; /> <statusCode code="completed" /> & lt;effectiveTime value="823806953284" /> <value unit="& quot; xsi:type="PQ" value="Bedside" /> < referenceRange> <observationRange> <text /& gt; </observationRange> </referenceRange> </observation> </component> <component> &lt ;observation moodCode="EVN" classCode="OBS"> &lt ;templateId root="2.16.840.1.615078.10.20.22.4.2" /> < id nullFlavor="NA" /> <code codeSystem="local&quot ; code="GAP" displayName="ANION GAP" /> < statusCode code="completed" /><effectiveTime value=" 786219667432" /> <value unit="mmol/L" xsi:type=& quot;PQ" value="13" /> <referenceRange> <observationRange> <text>10-20</text> </observationRange> </referenceRange> </ observation> </component> <component> < observation moodCode="EVN" classCode="OBS"> < templateId root="2.16.840.1.776086.10.20.22.4.2" /> < id nullFlavor="NA" /> <code codeSystem="local&quot ; code="HMETHOD" displayName="METHOD" /> < statusCode code="completed" /> <effectiveTime value=& quot;118259282480" /> <value unit="" xsi:type=& quot;PQ" value="Bedside" /> <referenceRange> <observationRange> <text /> </ observationRange> </referenceRange> </observation&gt ; </component> <component> <observation moodCode ="EVN" classCode="OBS"> <templateId root=& quot;2.16.840.1.243627.10.20.22.4.2" /> <id nullFlavor=&quot ;NA" /> <code codeSystem="local" code="GLU& quot; displayName="GLUCOSE" /> <statusCode code=" completed" /> <effectiveTime value="575354371631" /> <value unit="mg/dL" xsi:type="PQ" value=& quot;146" /> <interpretationCode codeSystem="local&quot ; code="*" /> <referenceRange> < observationRange> <text>70-99</text> < /observationRange> </referenceRange> </observation& gt; </component> <component> <observation moodCode ="EVN" classCode="OBS"> <templateId root=" 2.16.840.1.951404.10.20.22.4.2" /> <id nullFlavor="NA& quot; /> <code codeSystem="local" code="BUN" displayName="BLOOD UREA NITROGEN" /> <statusCode code=& quot;completed" /> <effectiveTime value="160294023528&quot ; /> <value unit="mg/dL" xsi:type="PQ" value= "13" /> <referenceRange> < observationRange> <text>7-20</text> </ observationRange> </referenceRange> </observation> </component> <component> <observation moodCode= "EVN" classCode="OBS"> <templateId root=&quot ;2.16.840.1.190210.10.20.22.4.2" /> <id nullFlavor="NA& quot; /> <code codeSystem="local" code="CREAT&quot ; displayName="CREATININE" /> <statusCode code=" completed" /> <effectiveTime value="811022984775" /> <value unit="mg/dL" xsi:type="PQ" value=& quot;1.2" /> <interpretationCode codeSystem="local&quot ; code="*" /> <referenceRange> < observationRange> <text>0.6-1.0</text> & lt;/observationRange> </referenceRange> </observation& gt; </component> <component> <observation moodCode="EVN" classCode="OBS"> <templateId root="2.16.840.1.852604.10.20.22.4.2" /> <id nullFlavor ="NA" /> <code codeSystem="local" code=" HGBT" displayName="HEMOGLOBIN" /> <statusCode code ="completed" /> <effectiveTime value="799093012475 " /> <value unit="gm/dL" xsi:type="PQ" value="6.5" /> <interpretationCode codeSystem="local& quot; code="*" /> <referenceRange> < observationRange> <text>12.0-16.0</text> </ observationRange> </referenceRange> </observation&gt ; </component> <component> <observation moodCode ="EVN" classCode="OBS"> <templateId root=& quot;2.16.840.1.976594.10.20.22.4.2" /> <id nullFlavor="NA& quot; /> <code codeSystem="local" code="HCTT&quot ; displayName="HEMATOCRIT" /> <statusCode code=" completed" /> <effectiveTime value="717121638404" /> <value unit="%" xsi:type="PQ" value="19.0" /> <interpretationCodecodeSystem=" local" code="*" /> <referenceRange> <observationRange> <text>37.0-47.0</text> </observationRange> </referenceRange> </ observation> </component> <component> < observation moodCode="EVN" classCode="OBS"> < templateId root="2.16.840.1.487685.10.20.22.4.2" /> < id nullFlavor="NA" /> <code codeSystem="local&quot ; code="NA" displayName="SODIUM" /> < statusCode code="completed" /> <effectiveTimevalue=& quot;330777208201" /> <value unit="mmol/L" xsi: type="PQ" value="130" /> <interpretationCode codeSystem="local" code="*" /> < referenceRange> <observationRange> <text> 135-148</text> </observationRange> </ referenceRange> </observation> </component> < component> <observation moodCode="EVN" classCode=" OBS"> <templateId root="2.16.840.1.147875.10.20.22.4.2& quot; /> <id nullFlavor="NA" /> <code codeSystem="local" code="CL" displayName="CHLORIDE&quot ; /> <statusCode code="completed" /> < effectiveTime value="631470845480" /> <value unit=" mmol/L" xsi:type="PQ" value="98" /> < referenceRange> <observationRange> <text> 98-110</text> </observationRange> </ referenceRange> </observation> </component> < component> <observation moodCode="EVN" classCode=" OBS"> <templateId root="2.16.840.1.467914.10.20.22.4.2& quot; /> <id nullFlavor="NA" /> <code codeSystem="local" code="CO2" displayName="CARBON DIOXIDE" /> <statusCode code="completed" /> <effectiveTime value="[id number]" /> < valueunit="mmol/L" xsi:type="PQ" value="26" /> <referenceRange> <observationRange> <text>21-32</text> </observationRange> </referenceRange> </observation> </component> <component> <observation moodCode="EVN" classCode=& quot;OBS"> <templateId root=" [id number]" /> <id nullFlavor="NA& quot; /> <code codeSystem="local" code="CAION&quot ;displayName="CALCIUM IONIZED" /> <statusCode code=& quot;completed" /> <effectiveTime value="924969437442& quot; /> <value unit="mg/dL" xsi:type="PQ" value="4.5" /> <referenceRange> <observationRange > <text>4.5-5.3</text> </ observationRange> </referenceRange> </observation&gt ; </component> </organizer> </entry> <entry> <organizer moodCode="EVN" classCode="BATTERY"> <templateId root="2.16.840.1.361258.10.20.22.4.1" /> < id nullFlavor="NA" /> <code codeSystem="local" code="UA" displayName="URINALYSIS, ROUTINE" /> < statusCode code="completed" /> <component> < observation moodCode="EVN" classCode="OBS"> < templateId root="2.16.840.1.230270.10.20.22.4.2" /> < id nullFlavor="NA" /> <code codeSystem="local&quot ; code="LEUESU" displayName="UA LEUKOCYTE ESTERASE DIPSTICK&quot ; /> <statusCode code="completed" /> < effectiveTime value="373389009293" /> <value unit=&quot ;" xsi:type="PQ" value="NEGATIVE" /> < referenceRange> <observationRange> <text> NEGATIVE</text> </observationRange> </ referenceRange> </observation> </component> < component> <observation moodCode="EVN" classCode=" OBS"> <templateId root="2.16.840.1.377891.10.20.22.4.2& quot; /> <id nullFlavor="NA" /> <code codeSystem="local" code="NITRIU" displayName="UA NITRITE DIPSTICK" /> <statusCode code="completed" /> <effectiveTime value="812074615144" /> & lt;value unit="" xsi:type="PQ" value="NEGATIVE" /& gt; <referenceRange> <observationRange> &lt ;text>NEGATIVE</text> </observationRange> &lt ;/referenceRange> </observation> </component> < component> <observation moodCode="EVN" classCode=" OBS"> <templateId root="2.16.840.1.749891.10.20.22.4.2&quot ; /> <id nullFlavor="NA" /> <code codeSystem="local" code="PROTEIU" displayName="UA PROTEIN DIPSTICK" /> <statusCode code="completed" /> <effectiveTime value="040038963127" /> < value unit="" xsi:type="PQ" value="TRACE" /> <interpretationCode codeSystem="local" code="*" / > <referenceRange> <observationRange> <text>NEGATIVE</text> </observationRange> </referenceRange> </observation> </component& gt; <component> <observation moodCode="EVN" classCode=& quot;OBS"> <templateId root=" 2.16.840.1.042107.10.20.22.4.2" /> <id nullFlavor="NA& quot; /> <code codeSystem="local" code="DGLUU" displayName="UA GLUCOSE DIPSTICK" /> <statusCode code=& quot;completed" /> <effectiveTime value="741419781739& quot; /> <value unit="" xsi:type="PQ" value=& quot;NEGATIVE" /> <referenceRange> < observationRange> <text>NEGATIVE</text> </ observationRange> </referenceRange> </observation&gt ; </component> <component> <observation moodCode ="EVN" classCode="OBS"> <templateId root=& quot;2.16.840.1.311631.10.20.22.4.2" /> <id nullFlavor=&quot ;NA" /> <code codeSystem="local" code="KETONU " displayName="UA KETONE DIPSTICK"/> <statusCode code="completed" /> <effectiveTime value=" 528610318047" /> <value unit="" xsi:type="PQ& quot; value="NEGATIVE" /> <referenceRange> <observationRange> <text>NEGATIVE</text> </observationRange> </referenceRange> </ observation> </component> <component> < observation moodCode="EVN" classCode="OBS"> < templateId root="2.16.840.1.164657.10..22.4.2" /> < id nullFlavor="NA" /> <code codeSystem="local&quot ; code="UROBILU" displayName="UA UROBILINOGEN DIPSTICK" /&gt ; <statusCode code="completed" /> < effectiveTime value="569554514929" /> <value unit=&quot ;" xsi:type="PQ" value="NORMAL" /> < referenceRange> <observationRange> <text> NORMAL</text> </observationRange> </ referenceRange> </observation> </component> < component> <observation moodCode="EVN" classCode=" OBS"> <templateId root="2.16.840.1.924899.10.20.22.4.2& quot; /> <id nullFlavor="NA" /> <code codeSystem="local" code="BILU" displayName="UA BILIRUBIN DIPSTICK" /> <statusCode code="completed" /> <effectiveTime value="449872343363" /> < value unit="" xsi:type="PQ" value="POSITIVE" /&gt ; <interpretationCode codeSystem="local" code="*&quot ; /> <referenceRange> <observationRange> <text>NEGATIVE</text> </observationRange&gt ; </referenceRange> </observation> </ component> <component> <observation moodCode="EVN& quot; classCode="OBS"> <templateId root=" 2.16.840.1.982026.10.20.22.4.2" /> <id nullFlavor="NA& quot; /> <code codeSystem="local" code="GORDON" displayName="UA BLOOD DIPSTICK" /> <statusCode code=& quot;completed" /> <effectiveTime value="230291132789& quot; /> <value unit="" xsi:type="PQ" value=& quot;NEGATIVE" /> <referenceRange> < observationRange> <text>NEGATIVE</text> </ observationRange> </referenceRange> </observation&gt ; </component> <component> <observation moodCode ="EVN" classCode="OBS"> <templateId root=& quot;2.16.840.1.133685.10..22.4.2" /> <id nullFlavor=&quot ;NA" /> <code codeSystem="local" code="SPGRU& quot; displayName="UA SPECIFIC GRAVITY" /> <statusCode code="completed" /> <effectiveTime value=" 152237279533" /> <value unit="" xsi:type="PQ& quot; value="1.015" /> <referenceRange> < observationRange> <text>1.015-1.025</text> </observationRange> </referenceRange> </ observation> </component> <component> < observation moodCode="EVN" classCode="OBS"> < templateId root="2.16.840.1.464497.10.20.22.4.2" /> < id nullFlavor="NA" /> <code codeSystem="local&quot ; code="REJI" displayName="UR PH" /> < statusCode code="completed" /> <effectiveTime value=& quot;783865977845" /> <value unit="" xsi:type=& quot;PQ" value="5.0" /> <referenceRange> <observationRange> <text>5.0-7.0</text> </observationRange> </referenceRange> </ observation> </component> </organizer> </entry> & lt;entry> <organizer moodCode="EVN" classCode="BATTERY& quot;> <templateId root="2.16.840.1.028010.10.20.22.4.1" /& gt; <id nullFlavor="NA" /> <code codeSystem=" local" code="UAMICRO" displayName="UA MICROSCOPIC" /&gt ; <statusCode code="completed" /> <component> <observation moodCode="EVN" classCode="OBS"> <templateId root="2.16.840.1.717927.10.20.22.4.2" /> <id nullFlavor="NA"/> <code codeSystem=" local" code="BACU" displayName="UA BACTERIA" /> <statusCode code="completed" /> < effectiveTime value="056598300383" /> <value unit=&quot ;" xsi:type="PQ" value="1+" /> < interpretationCode codeSystem="local" code="*" /> <referenceRange> <observationRange> < text>NEGATIVE</text> </observationRange> < /referenceRange> </observation> </component> &lt ;component> <observation moodCode="EVN" classCode=" OBS"> <templateId root="2.16.840.1.646830.10.20.22.4.2& quot; /> <id nullFlavor="NA" /> <code codeSystem="local" code="EPIU" displayName="UA EPITHELIAL CELLS" /> <statusCode code="completed" /> <effectiveTime value="444609250653" /> & lt;value unit="epi/hpf" xsi:type="PQ" value="2+" / > <interpretationCode codeSystem="local" code="*& quot; /> <referenceRange> <observationRange> <text>0 - 1+</text> </observationRange> </referenceRange> </observation> </component& gt; <component> <observation moodCode="EVN" classCode="OBS"> <templateId root=" 2.16.840.1.110675.10.20.22.4.2" /> <id nullFlavor="NA" /& gt; <code codeSystem="local" code="RBCU" displayName="UA RBC" /> <statusCode code=" completed" /> <effectiveTime value="394524925007" /> <value unit="rbc/hpf" xsi:type="PQ" value= "0-3" /> <referenceRange> <observationRange&gt ; <text>0 - 3</text> </observationRange& gt; </referenceRange> </observation> </ component> <component> <observation moodCode="EVN& quot; classCode="OBS"> <templateId root=" 2.16.840.1.049175.10.20.22.4.2" /> <id nullFlavor="NA& quot; /> <code codeSystem="local" code="UAVOL&quot ; displayName="UA VOLUME FOR EXAM" /> <statusCode code= "completed" /> <effectiveTime value="677053990762" /& gt; <value unit="mL" xsi:type="PQ" value=" 12.0" /> <referenceRange> <observationRange > <text>(12mL STD)</text> </ observationRange> </referenceRange> </observation> </component> <component> <observation moodCode= "EVN" classCode="OBS"> <templateId root=&quot ;2.16.840.1.471032.10.20.22.4.2" /> <id nullFlavor="NA& quot; /> <code codeSystem="local" code="WBCU&quot ; displayName="UA WBC" /> <statusCode code=" completed" /> <effectiveTime value="200130080556" /> <value unit="wbc/hpf" xsi:type="PQ"value=& quot;0-1" /> <referenceRange> < observationRange> <text>0 - 5</text> </ observationRange> </referenceRange> </observation&gt ; </component> </organizer> </entry> <entry> <organizer moodCode="EVN" classCode="BATTERY"> <templateId root="2.16.840.1.137362.10.20.22.4.1" /> < id nullFlavor="NA" /> <code codeSystem="local" code="RETIC" displayName="RETICULOCYTECOUNT" /> < statusCode code="completed" /> <component>< observation moodCode="EVN" classCode="OBS"> < templateId root="2.16.840.1.986238.10.20.22.4.2" /> < id nullFlavor="NA" /> <code codeSystem="local" code ="IRF" displayName="IMMATURE FRACTION" /> < statusCode code="completed" /> <effectiveTime value=& quot;770820804207" /> <value unit="%" xsi: type="PQ" value="33.8" /> < interpretationCode codeSystem="local" code="*" /> <referenceRange> <observationRange> < text>5-22</text> </observationRange> </ referenceRange> </observation> </component> < component> <observation moodCode="EVN" classCode=" OBS"> <templateId root="2.16.840.1.531898.10.20.22.4.2& quot; /> <id nullFlavor="NA" /> <code codeSystem="local" code="RBC" displayName="RED BLOOD CELL" /> <statusCode code="completed" /> <effectiveTime value="080864789531" /> <value unit="m/cumm" xsi:type="PQ" value="2.90" /> <interpretationCode codeSystem="local" code="*" /> <referenceRange> <observationRange> & lt;text>4.00-6.00</text> </observationRange> </ referenceRange> </observation> </component> < component> <observation moodCode="EVN" classCode=" OBS"> <templateId root="2.16.840.1.873774.10.20.22.4.2& quot; /> <id nullFlavor="NA" /> <code codeSystem ="local" code="RETABS" displayName="ABSOLUTE RETIC COUNT" /> <statusCode code="completed" /> <effectiveTime value="431679215145" /> < valueunit="k/cumm" xsi:type="PQ" value="536.5" /& gt; <interpretationCode codeSystem="local" code="*& quot; /> <referenceRange> <observationRange> <text>20.0-180.0</text> </observationRange> </referenceRange> </observation> </ component> <component> <observation moodCode="EVN& quot; classCode="OBS"> <templateId root=" 2.16.840.1.182500.10.20.22.4.2" /> <id nullFlavor="NA& quot; /> <code codeSystem="local" code="RETIC& #37;" displayName="PERCENT RETIC" /> <statusCode code="completed" /> <effectiveTime value=" 268828570388" /> <value unit="%" xsi:type= "PQ" value="18.5" /> <interpretationCode codeSystem="local" code="*" /> < referenceRange> <observationRange> <text> 0.5-3.0</text> </observationRange> </ referenceRange> </observation> </component> </ organizer> </entry> <entry> <organizer moodCode="EVN " classCode="BATTERY"> <templateId root=" 2.16.840.1.930322.10.20.22.4.1" /> <id nullFlavor="NA&quot ; /> <code codeSystem="local" code="HH" displayName="HGB HCT" /> <statusCode code="completed " /> <component> <observation moodCode="EVN& quot; classCode="OBS"> <templateId root=" 2.16.840.1.176365.10.20.22.4.2" /> <id nullFlavor="NA& quot;/> <code codeSystem="local" code="MCV" displayName="MEAN CELL VOLUME" /> <statusCode code=& quot;completed" /> <effectiveTime value="301825325261& quot; /> <value unit="fl" xsi:type="PQ" value ="102.1" /> <interpretationCode codeSystem="local& quot; code="*" /> <referenceRange> < observationRange> <text>80.0-100.0</text> </observationRange> </referenceRange> </ observation> </component> <component> < observation moodCode="EVN" classCode="OBS"> < templateId root="2.16.840.1.699796.10.20.22.4.2" /> < id nullFlavor="NA" /> <code codeSystem="local&quot ; code="HGBT" displayName="HEMOGLOBIN" /> < statusCode code="completed" /> <effectiveTime value=& quot;055252101545" /> <value unit="gm/dL" xsi:type ="PQ" value="8.9" /> <interpretationCode codeSystem="local" code="*" /> < referenceRange> <observationRange> <text> 12.0-16.0</text> </observationRange> </ referenceRange> </observation> </component> < component> <observation moodCode="EVN" classCode=" OBS"> <templateId root="2.16.840.1.385628.10.20.22.4.2& quot; /> <id nullFlavor="NA" /> <code codeSystem="local" code="HCTT" displayName="HEMATOCRIT& quot; /> <statusCode code="completed" /> & lt;effectiveTime value="838637987720" /> <value unit=& quot;%" xsi:type="PQ" value="29.6" /> <interpretationCode codeSystem="local" code="*" /&gt ; <referenceRange><observationRange> <text& gt;37.0-47.0</text> </observationRange> </ referenceRange> </observation> </component> </ organizer> </entry> <entry> <organizer moodCode="EVN " classCode="BATTERY"> <templateId root=" 2.16.840.1.192099.10.20.22.4.1" /> <id nullFlavor="NA&quot ; /> <code codeSystem="local" code="FOLRBC" displayName="FOLIC ACID, RBC" /> <statusCode code=" completed" /> <component> <observation moodCode=& quot;EVN" classCode="OBS"> <templateId root=" 2.16.840.1.503389.10.20.22.4.2" /> <id nullFlavor="NA& quot; /> <code codeSystem="local" code="FOLRBCT& quot; displayName="FOLIC ACID, RBC" /> <statusCode code ="completed" /> <effectiveTime value="679454878200& quot; /> <value unit="ng/mL" xsi:type="PQ" value="1312" /> <interpretationCode codeSystem=" local" code="*" /> <referenceRange> <observationRange> <text>280-791</text> </observationRange> </referenceRange> </observation&gt ; </component> <component> <observation moodCode=& quot;EVN" classCode="OBS"> <templateIdroot=" 2.16.840.1.346609.10.20.22.4.2" /> <id nullFlavor="NA& quot; /> <code codeSystem="local" code="FOLATE,HCT " displayName="FOLATE, HCT" /> <statusCode code=& quot;completed" /> <effectiveTimevalue="945558031928& quot; /> <value unit="%" xsi:type="PQ&quot ; value="29.6" /> <referenceRange> < observationRange> <text /> </ observationRange> </referenceRange> </observation> </component> </organizer> </entry> <entry> <organizer moodCode="EVN" classCode="BATTERY"> <templateId root="2.16.840.1.764423.10.20.22.4.1" /> < id nullFlavor="NA" /><code codeSystem="local" code=& quot;FETIBC" displayName="IRON W/ BINDING CAPACITY" /> & lt;statusCode code="completed" /> <component> &lt ;observation moodCode="EVN" classCode="OBS"> &lt ;templateId root="2.16.840.1.596531.10.20.22.4.2" /> < id nullFlavor="NA" /> <code codeSystem="local" code=& quot;FESAT" displayName="IRON SATURATION" /> < statusCode code="completed" /> <effectiveTime value=& quot;284149280406" /> <value unit="%SAT" xsi:type="PQ"value="42" /> <referenceRange&gt ; <observationRange> <text>11-46</text> </observationRange> </referenceRange> </ observation> </component> <component> < observation moodCode="EVN" classCode="OBS"> < templateId root="2.16.840.1.439691.10.20.22.4.2" /> < id nullFlavor="NA" /> <code codeSystem="local&quot ; code="TIBC" displayName="IRON BINDING CAPACITY, TOTAL" /& gt; <statusCode code="completed" /> < effectiveTime value="660287465015" /> <value unit=&quot ;mcg/dL" xsi:type="PQ" value="406" /> < referenceRange> <observationRange> <text>250-450&lt ;/text> </observationRange> </referenceRange&gt ; </observation> </component> <component> <observation moodCode="EVN" classCode="OBS"> <templateId root="2.16.840.1.616642.10.20.22.4.2" /> <id nullFlavor="NA" /> <codecodeSystem=" local" code="IRON" displayName="IRON" /> & lt;statusCode code="completed" /> <effectiveTime value= "462787772111" /> <value unit="mcg/dL" xsi: type="PQ" value="169" /> <interpretationCode codeSystem="local" code="*" /> < referenceRange> <observationRange> <text> 35-150</text> </observationRange> </referenceRange > </observation> </component> </organizer> </entry> <entry> <organizer moodCode="EVN" classCode="BATTERY"> <templateId root=" 2.16.840.1.513243.10.20.22.4.1" /> <id nullFlavor="NA&quot ; /> <code codeSystem="local" code="VITB12" displayName="VITAMIN B12" /> <statusCode code=" completed" /> <component> <observation moodCode=& quot;EVN" classCode="OBS"> <templateId root=" 2.16.840.1.627841.10..22.4.2" /> <id nullFlavor="NA& quot; /> <code codeSystem="local" code="VITB12& quot; displayName="VITAMIN B12" /> <statusCode code=& quot;completed" /> <effectiveTime value="385391541340& quot; /> <value unit="pg/mL" xsi:type="PQ" value="889" /> <referenceRange> < observationRange> <text>211-911</text> & lt;/observationRange> </referenceRange> </ observation> </component> </organizer> </entry> & lt;entry> <organizer moodCode="EVN" classCode="BATTERY& quot;> <templateId root="2.16.840.1.977661.10.20.22.4.1"/& gt; <id nullFlavor="NA" /> <code codeSystem=" local" code="GLUMON" displayName="GLUCOSE (POC)" /> <statusCode code="completed" /> <component> <observation moodCode="EVN" classCode="OBS"> <templateId root="2.16.840.1.771755.10.20.22.4.2" /> <id nullFlavor="NA" /> <code codeSystem=" local" code="GLUMON" displayName="GLUCOSE (POC)" /> <statusCode code="completed" /> < effectiveTime value="466113323332" /> <value unit=&quot ;mg/dL" xsi:type="PQ" value="159" /> < interpretationCode codeSystem="local" code="*" /> <referenceRange> <observationRange> < text>70-99</text> </observationRange> </ referenceRange> </observation> </component> </ organizer> </entry> <entry> <organizer moodCode="EVN " classCode="BATTERY"> <templateId root=" 2.16.840.1.788300.10.20.22.4.1" /> <id nullFlavor="NA&quot ; /> <code codeSystem="local" code="GLUMON" displayName="GLUCOSE (POC)" /> <statusCode code=" completed" /> <component> <observation moodCode=& quot;EVN" classCode="OBS"> <templateId root=" 2.16.840.1.894333.10.20.22.4.2" /> <id nullFlavor="NA& quot; /> <code codeSystem="local" code="GLUMON& quot; displayName="GLUCOSE (POC)" /> <statusCode code=& quot;completed" /> <effectiveTime value="361234537757& quot; /> <value unit="mg/dL" xsi:type="PQ" value="142" /> <interpretationCode codeSystem=" local" code="*" /> <referenceRange> <observationRange> <text>70-99</text> </ observationRange> </referenceRange> </observation&gt ; </component> </organizer> </entry> <entry> <organizer moodCode="EVN" classCode="BATTERY"> <templateId root="2.16.840.1.161549.10.20.22.4.1" /> < id nullFlavor="NA" /> <code codeSystem="local" code="CBCD" displayName="CBC W/DIFF" /> < statusCode code="completed" /> <component> < observation moodCode="EVN" classCode="OBS"> < templateId root="2.16.840.1.065876.10.20.22.4.2" /> < id nullFlavor="NA" /> <codecodeSystem="local&quot ; code="EO#" displayName="EOSINOPHIL #" /> < statusCode code="completed" /> <effectiveTime value=& quot;073103643529" /> <value unit="k/cumm" xsi: type="PQ" value="0.9"/> <interpretationCode codeSystem="local" code="*" /><referenceRange> <observationRange> <text>0.1-0.5</text> </observationRange> </referenceRange> &lt ;/observation> </component> <component> < observation moodCode="EVN" classCode="OBS"> < templateId root="2.16.840.1.036716...22.4.2" /> < id nullFlavor="NA" /> <code codeSystem="local&quot ; code="EO%" displayName="EOSINOPHIL %" /&gt ; <statusCode code="completed" /> < effectiveTime value="225347361827" /> <value unit="& #37;" xsi:type="PQ" value="5" /> < interpretationCode codeSystem="local" code="*" /> <referenceRange> <observationRange> < text>2-4</text> </observationRange> </ referenceRange> </observation> </component> < component> <observation moodCode="EVN" classCode=" OBS"> <templateId root="2.16.840.1.936860.10.20.22.4.2& quot; /> <id nullFlavor="NA" /> <code codeSystem="local" code="GR#" displayName="GRANULOCYTE #" /> <statusCode code="completed" /> < effectiveTime value="783972147521" /> <value unit=&quot ;k/cumm" xsi:type="PQ" value="13.2" /> < interpretationCode codeSystem="local" code="*" /> <referenceRange> <observationRange> < text>2.0-9.0</text> </observationRange> </ referenceRange> </observation> </component> < component> <observation moodCode="EVN" classCode="OBS& quot;> <templateId root="2.16.840.1.522054.10.20.22.4.2&quot ; /> <id nullFlavor="NA" /> <code codeSystem="local" code="LY#" displayName="LYMPHOCYTE # " /> <statusCode code="completed" /> & lt;effectiveTime value="290143288854" /> <value unit=& quot;k/cumm" xsi:type="PQ" value="1.1" /> & lt;referenceRange> <observationRange> <text>1.0-4.0& lt;/text> </observationRange> </referenceRange& gt; </observation> </component> <component> <observation moodCode="EVN" classCode="OBS"> <templateId root="2.16.840.1.407041.10.20.22.4.2" /> <id nullFlavor="NA" /> <code codeSystem=&quot ;local" code="LY%" displayName="LYMPHOCYTE % " /> <statusCode code="completed" /> & lt;effectiveTime value="646140049849" /> <value unit=& quot;%" xsi:type="PQ" value="6" /> <interpretationCode codeSystem="local" code="*" /> <referenceRange> <observationRange> & lt;text>20-30</text> </observationRange> < /referenceRange> </observation> </component> &lt ;component> <observation moodCode="EVN" classCode=" OBS"> <templateId root="2.16.840.1.559590.10.20.22.4.2& quot; /> <id nullFlavor="NA" /> <code codeSystem="local" code="MCH" displayName="MEAN CELL HGB" /> <statusCode code="completed" /> <effectiveTime value="695014245920" /> <value unit=&quot ;pg" xsi:type="PQ" value="30.9" /> < referenceRange> <observationRange> <text> 27.0-33.0</text> </observationRange> </ referenceRange> </observation> </component> < component> <observation moodCode="EVN" classCode=" OBS"> <templateId root="2.16.840.1.262269.10.20.22.4.2& quot; /> <id nullFlavor="NA" /> <code codeSystem="local" code="MCHC" displayName="MEAN CELL HGB CONCENTRATION" /> <statusCode code="completed&quot ; /> <effectiveTime value="068597947983" />< value unit="g/dL" xsi:type="PQ" value="30.2" /&gt ; <interpretationCode codeSystem="local" code="*&quot ; /> <referenceRange> <observationRange> <text>32.0-37.0</text> </observationRange&gt ; </referenceRange> </observation> </ component> <component> <observation moodCode="EVN& quot; classCode="OBS"> <templateId root=" 2.16.840.1.778755.10.20.22.4.2" /> <id nullFlavor="NA& quot; /> <code codeSystem="local" code="MCV" displayName="MEAN CELL VOLUME" /> <statusCode code=& quot;completed" /> <effectiveTime value="980357601836& quot; /> <value unit="fl" xsi:type="PQ" value ="102.2" /> <interpretationCode codeSystem="local& quot; code="*" /> <referenceRange> < observationRange> <text>80.0-100.0</text> </observationRange> </referenceRange> </observation&gt ; </component> <component> <observation moodCode= "EVN" classCode="OBS"> <templateId root=&quot ;2.16.840.1.258575.10.20.22.4.2" /> <id nullFlavor="NA& quot; /> <code codeSystem="local" code="MO#" displayName="MONOCYTE #" /> <statusCode code=" completed" /> <effectiveTime value="354089366772" /> <value unit="k/cumm" xsi:type="PQ" value=& quot;1.6" /> <interpretationCode codeSystem="local&quot ; code="*" /> <referenceRange> < observationRange> <text>0.1-1.0</text> & lt;/observationRange> </referenceRange> </ observation> </component> <component> < observation moodCode="EVN" classCode="OBS"> < templateId root="2.16.840.1.665372.10.20.22.4.2" /> < id nullFlavor="NA" /> <code codeSystem="local&quot ; code="MO%" displayName="MONOCYTE %" />& lt;statusCode code="completed" /> <effectiveTime value= "018551841557" /> <value unit="%" xsi :type="PQ" value="9"/> <interpretationCode codeSystem="local" code="*" /><referenceRange> <observationRange> <text>4-6</text> </observationRange> </referenceRange> </ observation> </component> <component> < observation moodCode="EVN" classCode="OBS"> < templateId root="216.840.1.908090.10..22.4.2" /> <id nullFlavor="NA" /> <code codeSystem="local" code="NRBC" displayName="NUCLEATED RED BLOOD CELL" /> <statusCode code="completed" /> < effectiveTime value="620660528841" /> <value unit=&quot ;/100WBC" xsi:type="PQ" value="3" /> < interpretationCode codeSystem="local" code="*" /> <referenceRange> <observationRange> < text /> </observationRange> </referenceRange> </observation> </component> <component> <observation moodCode="EVN" classCode="OBS"> <templateId root="2.16.840.1.843458.10.20.22.4.2" /> <id nullFlavor="NA" /> <code codeSystem=" local" code="POLC" displayName="POLYCHROMASIA" /> <statusCode code="completed" /> < effectiveTime value="[id number]" /> <value unit=&quot ;" xsi:type="PQ" value="MARKED" /> < referenceRange> <observationRange> <text /> </observationRange> </referenceRange> </ observation> </component> <component> < observation moodCode="EVN" classCode="OBS"> < templateId root="[id number]" /> < id nullFlavor="NA" /> <code codeSystem="local&quot ; code="RBC" displayName="RED BLOOD CELL" /> &lt ;statusCode code="completed" /> <effectiveTime value=& quot;104361006480" /> <value unit="m/cumm" xsi: type="PQ" value="2.75" /> <interpretationCode codeSystem="local" code="*" /> < referenceRange> <observationRange> <text> 4.00-6.00</text> </observationRange> </ referenceRange> </observation> </component> < component> <observation moodCode="EVN" classCode=" OBS"> <templateId root="2.16.840.1.777737.10.20.22.4.2& quot; /> <id nullFlavor="NA" /> <code codeSystem="local" code="RDW" displayName="RED CELL DISTRIBUTION WIDTH" /> <statusCode code="completed&quot ; /> <effectiveTime value="284820853905" /> <value unit="%" xsi:type="PQ" value="25.2& quot; /> <interpretationCode codeSystem="local" code=& quot;*" /> <referenceRange> < observationRange> <text>11.0-15.6</text> </observationRange> </referenceRange> </ observation> </component> <component> < observation moodCode="EVN" classCode="OBS"> < templateId root="2.16.840.1.706348.10.20.22.4.2" /> < id nullFlavor="NA" /> <code codeSystem="local&quot ; code="WBC" displayName="WHITE BLOOD CELL" /> & lt;statusCode code="completed" /> <effectiveTime value= "143589181115" /> <value unit="k/cumm" xsi: type="PQ" value="17.8" /> < interpretationCode codeSystem="local" code="*" /> <referenceRange> <observationRange> < text>5.0-10.0</text> </observationRange> </ referenceRange> </observation> </component> < component> <observation moodCode="EVN" classCode=" OBS"> <templateId root="2.16.840.1.795291.10.20.22.4.2& quot; /> <id nullFlavor="NA" /> <code codeSystem="local" code="HGBT" displayName="HEMOGLOBIN& quot; /> <statusCode code="completed" /> & lt;effectiveTime value="455862026182" /> <value unit=& quot;gm/dL" xsi:type="PQ" value="8.5" /> & lt;interpretationCode codeSystem="local" code="*" /> <referenceRange> <observationRange> & lt;text>12.0-16.0</text> </observationRange> </referenceRange> </observation> </component> < component> <observation moodCode="EVN" classCode=" OBS"> <templateId root="2.16.840.1.607313.10.20.22.4.2& quot; /> <id nullFlavor="NA" /> <code codeSystem="local" code="HCTT" displayName="HEMATOCRIT& quot; /> <statusCode code="completed" /> & lt;effectiveTime value="051133379247" /> <value unit=& quot;%" xsi:type="PQ" value="28.1" /> <interpretationCode codeSystem="local" code="*" /> <referenceRange> <observationRange> & lt;text>37.0-47.0</text> </observationRange> &lt ;/referenceRange> </observation></component> < component> <observation moodCode="EVN" classCode=" OBS"> <templateId root="2.16.840.1.648153.10.20.22.4.2& quot; /> <id nullFlavor="NA" /> <code codeSystem="local" code="PLT" displayName="PLATELET COUNT" /> <statusCode code="completed" /> <effectiveTime value="832917875922" /> <value unit="k/cumm" xsi:type="PQ" value="230" /> <referenceRange> <observationRange> & lt;text>150-400</text> </observationRange> & lt;/referenceRange> </observation> </component> & lt;/organizer> </entry> <entry> <organizer moodCode=&quot ;EVN" classCode="BATTERY"> <templateId root=" 2.16.840.1.339632.10.20.22.4.1" /> <id nullFlavor="NA&quot ; /> <code codeSystem="local" code="DIFFM" displayName="MANUAL DIFF(R)" /> <statusCode code=" completed" /> <component> <observation moodCode=& quot;EVN" classCode="OBS"> <templateId root=" 2.16.840.1.646046.10.20.22.4.2" /> <id nullFlavor="NA& quot; /> <code codeSystem="local" code="BAND&# 37;" displayName="BAND %" /> <statusCode code="completed" /> <effectiveTime value=" 194166258805" /> <value unit="%" xsi:type= "PQ" value="1" /> <referenceRange> <observationRange> <text>0-10</text> </observationRange> </referenceRange> </ observation> </component> <component> < observation moodCode="EVN" classCode="OBS"> < templateId root="2.16.840.1.973698.10.20.22.4.2" /> < id nullFlavor="NA" /> <code codeSystem="local&quot ; code="MANDIFF" displayName="DIFFERENTIAL" /> & lt;statusCode code="completed" /> <effectiveTime value=& quot;291838476810" /> <value unit="" xsi:type=& quot;PQ" value="MANUAL" /> <referenceRange> <observationRange> <text /> </ observationRange> </referenceRange> </observation&gt ; </component> <component> <observation moodCode ="EVN" classCode="OBS"> <templateId root=& quot;2.16.840.1.401625.10.20.22.4.2" /> <id nullFlavor=&quot ;NA" /> <code codeSystem="local" code="META%& quot; displayName="METAMYELOCYTE %" /> < statusCode code="completed" /> <effectiveTime value=& quot;734621727152" /> <value unit="%" xsi: type="PQ" value="3" /> <interpretationCode codeSystem="local" code="*" /> < referenceRange> <observationRange> <text /> </observationRange> </referenceRange> </ observation> </component> <component> < observation moodCode="EVN" classCode="OBS"> < templateId root="2.16.840.1.819996.10.20.22.4.2" /> < id nullFlavor="NA" /> <code codeSystem="local&quot ; code="MYELO%" displayName="MYELOCYTE %" /& gt;<statusCode code="completed" /> <effectiveTime value="338221688616" /> <value unit="%& quot; xsi:type="PQ" value="3"/> < interpretationCode codeSystem="local" code="*" />< referenceRange> <observationRange> <text /& gt; </observationRange> </referenceRange> </observation> </component> <component> &lt ;observation moodCode="EVN" classCode="OBS"> &lt ;templateId root="2.16.840.1.042041.10.20.22.4.2" /> < idnullFlavor="NA" /> <code codeSystem="local&quot ; code="SEG%" displayName="SEGMENTED NEUTROPHIL % " /> <statusCode code="completed" /> & lt;effectiveTime value="146965124154" /> <value unit=& quot;%" xsi:type="PQ" value="73" /> <interpretationCode codeSystem="local" code="*" /> <referenceRange> <observationRange> <text>50-70</text> </observationRange> & lt;/referenceRange> </observation> </component> & lt;/organizer> </entry> <entry> <organizer moodCode=&quot ;EVN" classCode="BATTERY"> <templateId root=" 2.16.840.1.566505.10.20.22.4.1" /> <id nullFlavor="NA&quot ; /> <code codeSystem="local" code="METABC" displayName="METABOLIC PANEL, COMPREHN" /> <statusCode code ="completed" /> <component> <observation moodCode="EVN" classCode="OBS"> <templateId root="2.16.840.1.419830.10.20.22.4.2" /> <id nullFlavor=& quot;NA" /> <code codeSystem="local" code="K& quot; displayName="POTASSIUM" /> <statusCode code=&quot ;completed"/> <effectiveTime value="781350080050" /> <value unit="mmol/L" xsi:type="PQ" value=& quot;5.0" /> <referenceRange> <observationRange& gt; <text>3.5-5.3</text> </ observationRange> </referenceRange> </observation&gt ; </component> <component> <observation moodCode=& quot;EVN" classCode="OBS"> <templateId root=" 2.16.840.1.953223.10.20.22.4.2" /> <id nullFlavor="NA& quot; /> <code codeSystem="local" code="eGFR&quot ; displayName="EST GFR (MDRD)" /> <statusCode code=& quot;completed" /><effectiveTime value="536418068664" /&gt ; <value unit="mL/min" xsi:type="PQ" value=&quot ;> 60" /> <referenceRange> < observationRange> <text>> 59</text> </observationRange> </referenceRange> </ observation> </component> <component> < observation moodCode="EVN" classCode="OBS"> < templateId root="2.16.840.1.179737.10.20.22.4.2" /> < id nullFlavor="NA" /> <code codeSystem="local&quot ; code="GAP" displayName="ANION GAP" /> < statusCode code="completed" /> <effectiveTime value=& quot;049652801631" /> <value unit="mmol/L" xsi: type="PQ" value="8" /> <referenceRange> <observationRange> <text>5-15</text> </observationRange> </referenceRange> < /observation> </component> <component> < observation moodCode="EVN" classCode="OBS"> < templateId root="2.16.840.1.148094.10.20.22.4.2" /> < id nullFlavor="NA" /> <code codeSystem="local" code=& quot;eCrCl" displayName="EST CrCl (CG)"/> < statusCode code="completed" /> <effectiveTime value=& quot;078250228838" /> <value unit="mL/min" xsi: type="PQ" value="44" /> <interpretationCode codeSystem="local" code="*" /> < referenceRange> <observationRange> <text> > 59</text> </observationRange> </ referenceRange> </observation> </component> < component> <observation moodCode="EVN" classCode=" OBS"> <templateId root="2.16.840.1.964721.10.20.22.4.2& quot; /> <id nullFlavor="NA" /> <code codeSystem="local" code="GLU" displayName="GLUCOSE&quot ; /> <statusCode code="completed" /> < effectiveTime value="277665138267" /><value unit="mg/dL& quot; xsi:type="PQ" value="151" /> < interpretationCode codeSystem="local" code="*" /> <referenceRange> <observationRange> < text>70-99</text> </observationRange> </ referenceRange> </observation> </component> < component> <observation moodCode="EVN" classCode=" OBS"> <templateId root="2.16.840.1.971404.10.20.22.4.2& quot; /> <id nullFlavor="NA" /> <code codeSystem="local" code="CA" displayName="CALCIUM&quot ; /> <statusCode code="completed" /> < effectiveTime value="633993827926" /> <value unit=&quot ;mg/dL" xsi:type="PQ" value="7.9" /> < interpretationCode codeSystem="local" code="*" /> <referenceRange> <observationRange> <text&gt ;8.5-10.1</text> </observationRange> </ referenceRange> </observation> </component> < component> <observation moodCode="EVN" classCode=" OBS"> <templateId root="2.16.840.1.721336.10.20.22.4.2& quot; /> <id nullFlavor="NA" /> <code codeSystem="local" code="BUN" displayName="BLOOD UREA NITROGEN" /> <statusCode code="completed" /> <effectiveTime value="844757579650" /> < value unit="mg/dL" xsi:type="PQ" value="13" /> <referenceRange> <observationRange> <text>7-20</text> </observationRange> & lt;/referenceRange> </observation> </component> < component> <observation moodCode="EVN" classCode=" OBS"> <templateId root="2.16.840.1.712016.10.20.22.4.2& quot; /> <id nullFlavor="NA" /> <code codeSystem="local" code="CREAT" displayName="CREATININE " /> <statusCode code="completed" /> & lt;effectiveTime value="433882876849" /> <value unit=& quot;mg/dL" xsi:type="PQ" value="0.9" /> < referenceRange> <observationRange> <text> 0.6-1.0</text> </observationRange> </ referenceRange> </observation> </component> < component> <observation moodCode="EVN" classCode=" OBS"> <templateId root="2.16.840.1.859566.10.20.22.4.2& quot; /> <id nullFlavor="NA" /> <code codeSystem="local" code="NA" displayName="SODIUM" /> <statusCode code="completed" /> < effectiveTime value="482619726373" /> <value unit=&quot ;mmol/L" xsi:type="PQ" value="136" /> < referenceRange> <observationRange> <text> 135-148</text> </observationRange> </ referenceRange> </observation> </component> < component> <observation moodCode="EVN" classCode=" OBS"> <templateId root="2.16.840.1.014850.10.20.22.4.2& quot; /> <id nullFlavor="NA" /> <code codeSystem="local" code="CL" displayName="CHLORIDE&quot ; /> <statusCode code="completed" /> < effectiveTime value="994701490513" /> <value unit=&quot ;mmol/L" xsi:type="PQ" value="103" /> < referenceRange> <observationRange> <text> 98-110</text> </observationRange> </referenceRange& gt; </observation> </component> <component> <observation moodCode="EVN" classCode="OBS"> <templateId root="2.16.840.1.084245.10.20.22.4.2" /> <id nullFlavor="NA" /> <code codeSystem=&quot ;local" code="AST" displayName="AST/SGOT" /> <statusCode code="completed" /> <effectiveTime value="237645080491" /> <value unit="Units/L&quot ; xsi:type="PQ" value="52" /> < interpretationCode codeSystem="local" code="*" /> <referenceRange> <observationRange> < text>10-37</text> </observationRange> </ referenceRange> </observation> </component> < component> <observation moodCode="EVN" classCode=" OBS"> <templateId root="2.16.840.1.087497.10.20.22.4.2& quot; /> <id nullFlavor="NA" /> <code codeSystem="local" code="ALT" displayName="ALT/SGPT& quot; /> <statusCode code="completed" /> & lt;effectiveTime value="417016593546" /><value unit="Units/ L" xsi:type="PQ" value="36" /> < referenceRange> <observationRange> <text> < 66</text> </observationRange> </ referenceRange> </observation> </component> < component> <observation moodCode="EVN" classCode=" OBS"> <templateId root="2.16.840.1.347158.10.20.22.4.2& quot; /> <id nullFlavor="NA" /> <code codeSystem="local" code="CO2" displayName="CARBON DIOXIDE" /> <statusCode code="completed" /> <effectiveTime value="230055537976" /> < value unit="mmol/L" xsi:type="PQ" value="25" /&gt ; <referenceRange> <observationRange> <text>21-32</text> </observationRange> </referenceRange> </observation> </component> <component> <observation moodCode="EVN" classCode= "OBS"> <templateId root=" 2.16.840.1.816475.10.20.22.4.2" /> <id nullFlavor="NA& quot; /> <code codeSystem="local" code="TP" displayName="TOTAL PROTEIN" /> <statusCode code=" completed" /> <effectiveTime value="245899677896" /> <value unit="gm/dL"xsi:type="PQ" value=" 5.9" /> <interpretationCode codeSystem="local" code="*" /> <referenceRange> < observationRange> <text>6.4-8.2</text> & lt;/observationRange> </referenceRange> </ observation> </component> <component><observation moodCode="EVN" classCode="OBS"> <templateId root="2.16.840.1.560932.10.20.22.4.2" /> <id nullFlavor ="NA" /> <code codeSystem="local" code="ALB& quot; displayName="ALBUMIN" /> <statusCode code=" completed" /> <effectiveTime value="077771763865" /> <value unit="gm/dL" xsi:type="PQ" value=& quot;2.7" /> <interpretationCode codeSystem="local&quot ; code="*" /> <referenceRange> < observationRange> <text>3.4-5.0</text> & lt;/observationRange> </referenceRange> </ observation> </component> <component> < observation moodCode="EVN" classCode="OBS"> < templateId root="2.16.840.1.282618.10.20.22.4.2" /> < id nullFlavor="NA" /> <code codeSystem="local&quot ; code="BILTOT" displayName="BILI TOTAL" /> < statusCode code="completed" /> <effectiveTime value=& quot;338652553402" /> <value unit="mg/dL" xsi:type ="PQ" value="2.1" /> <interpretationCode codeSystem="local" code="*" /> < referenceRange> <observationRange> <text>0.0- 1.0</text> </observationRange> </ referenceRange> </observation> </component> < component> <observation moodCode="EVN" classCode=" OBS"> <templateId root="2.16.840.1.636879.10.20.22.4.2& quot; /> <id nullFlavor="NA" /> <code codeSystem="local" code="ALKP" displayName="ALKALINE PHOSPHATASE TOTAL" /> <statusCode code="completed&quot ; /> <effectiveTime value="929702518430" /> <value unit="IU/L" xsi:type="PQ" value="147" /> <interpretationCode codeSystem="local" code="*& quot; /> <referenceRange> <observationRange> <text>45-117</text> </observationRange& gt; </referenceRange> </observation> </component&gt ; </organizer> </entry> <entry> <organizer moodCode= "EVN" classCode="BATTERY"> <templateId root=&quot ;2.16.840.1.630937.10.20.22.4.1" /> <id nullFlavor="NA&quot ; /> <code codeSystem="local" code="HDLPRO" displayName="LIPID PANEL" /> <statusCode code=" completed" /> <component> <observation moodCode=& quot;EVN" classCode="OBS"> <templateId root=" 2.16.840.1.090659.10.20.22.4.2" /> <id nullFlavor="NA& quot; /> <code codeSystem="local" code="CHOL/HDL& quot; displayName="CHOLESTEROL/HDL RATIO" /> < statusCode code="completed" /> <effectiveTime value=& quot;917032476468" /> <value unit="" xsi:type=& quot;PQ" value="3.5" /> <referenceRange> <observationRange> <text> < 5.0</text& gt; </observationRange> </referenceRange> </ observation> </component> <component> < observation moodCode="EVN" classCode="OBS"> < templateId root="840.1.490568.10.20.22.4.2" /> < id nullFlavor="NA" /> <code codeSystem="local&quot ; code="LDLX" displayName="LDL CHOLESTEROL" /> & lt;statusCode code="completed" /> <effectiveTime value= "193005440191" /> <value unit="mg/dL" xsi: type="PQ" value="46" /> <referenceRange> <observationRange> <text>< 100</text& gt; </observationRange> </referenceRange> </observation> </component> <component> &lt ;observation moodCode="EVN" classCode="OBS"> &lt ;templateId root="2.16.840.1.337803.10.20.22.4.2" /> < id nullFlavor="NA" /> <code codeSystem="local" code=& quot;VLDL" displayName="VLDL CHOLESTEROL" /> < statusCode code="completed" /> <effectiveTime value=& quot;803269829510" /> <value unit="mg/dL" xsi:type ="PQ" value="51" /> <interpretationCode codeSystem="local" code="*" /> < referenceRange> <observationRange> <text> < 30</text> </observationRange> </ referenceRange> </observation> </component> < component> <observation moodCode="EVN" classCode=" OBS"> <templateId root="2.16.840.1.427363.10.20.22.4.2& quot; /> <id nullFlavor="NA" /> <code codeSystem="local" code="TRIG" displayName=" TRIGLYCERIDES" /> <statusCode code="completed" /& gt; <effectiveTime value="046781080504" /> < value unit="mg/dL" xsi:type="PQ" value="255" /&gt ; <interpretationCode codeSystem="local" code="*" /> <referenceRange> <observationRange> <text>< 150</text> </observationRange> </referenceRange> </observation> </component> <component> <observation moodCode="EVN" classCode=& quot;OBS"> <templateId root=" 2.16.840.1.002923.10.20.22.4.2" /> <id nullFlavor="NA" /& gt; <code codeSystem="local" code="CHOL" displayName="CHOLESTEROL" /> <statusCode code=" completed" /> <effectiveTime value="491266609559" /> <value unit="mg/dL" xsi:type="PQ" value=& quot;136" /> <referenceRange> <observationRange& gt; <text>< 200</text> </ observationRange> </referenceRange> </observation&gt ; </component> <component> <observation moodCode ="EVN" classCode="OBS"> <templateId root=& quot;2.16.840.1.328967.10.20.22.4.2" /> <id nullFlavor=&quot ;NA" /> <code codeSystem="local" code="HDL& quot; displayName="HDL CHOLESTEROL" /> <statusCode code ="completed" /> <effectiveTime value="358843764295&quot ; /> <value unit="mg/dL" xsi:type="PQ" value= "39" /> <interpretationCode codeSystem="local&quot ; code="*" /> <referenceRange> < observationRange> <text>> 39</text> </observationRange> </referenceRange> </ observation> </component> </organizer> </entry> & lt;entry> <organizer moodCode="EVN" classCode="BATTERY& quot;> <templateId root="2.16.840.1.621446.10.20.22.4.1" /& gt; <id nullFlavor="NA" /> <code codeSystem=" local" code="PHOS" displayName="PHOSPHORUS" /> <statusCode code="completed" /> <component> < observation moodCode="EVN" classCode="OBS"> < templateIdroot="2.16.840.1.719331.10.20.22.4.2" /> <id nullFlavor="NA" /> <code codeSystem="local" code="PHOS" displayName="PHOSPHORUS" /> < statusCode code="completed" /> <effectiveTime value=& quot;659021565793" /> <value unit="mg/dL" xsi:type ="PQ" value="3.1" /> <referenceRange> <observationRange> <text>2.5-4.9</text> & lt;/observationRange> </referenceRange> </ observation> </component> </organizer> </entry> & lt;entry> <organizer moodCode="EVN" classCode="BATTERY& quot;> <templateId root="2.16.840.1.751399.10.20.22.4.1" /& gt; <id nullFlavor="NA" /> <code codeSystem=" local" code="MAG" displayName="MAGNESIUM" /> & lt;statusCode code="completed" /> <component> &lt ;observation moodCode="EVN" classCode="OBS"> &lt ;templateId root="2.16.840.1.967498.10.20.22.4.2" /> < id nullFlavor="NA" /> <code codeSystem="local&quot ; code="MAG" displayName="MAGNESIUM" /> < statusCode code="completed" /> <effectiveTime value=& quot;147196079804" /> <value unit="mg/dL" xsi:type ="PQ" value="2.4" /> <referenceRange> <observationRange> <text>1.8-2.4</text> </observationRange> </referenceRange> &lt ;/observation> </component> </organizer> </entry> <entry> <organizer moodCode="EVN" classCode=" BATTERY"> <templateId root="2.16.840.1.755544.10.20.22.4.1& quot; /> <id nullFlavor="NA" /> <code codeSystem ="local" code="T4F" displayName="T4 FREE" /> <statusCodecode="completed" /> <component> <observation moodCode="EVN" classCode="OBS"> <templateId root="2.16.840.1.434196.10.20.22.4.2" /> <id nullFlavor="NA" /> <code codeSystem=" local" code="T4F" displayName="T4 FREE" /> <statusCode code="completed" /> <effectiveTime value ="764582079421" /> <value unit="ng/dL" xsi: type="PQ" value="0.9" /> <referenceRange> <observationRange> <text>0.9-1.8</text& gt; </observationRange> </referenceRange> </observation> </component> </organizer> </entry > <entry> <organizer moodCode="EVN" classCode=" BATTERY"> <templateId root="2.16.840.1.370021.10.20.22.4.1& quot; /> <id nullFlavor="NA" /> <code codeSystem ="local" code="TSH" displayName="THYROID STIM HORMONE ( TSH)" /> <statusCode code="completed" /> < component> <observation moodCode="EVN" classCode=" OBS"> <templateId root="2.16.840.1.877443.10.20.22.4.2& quot; /> <id nullFlavor="NA" /> <code codeSystem="local" code="TSH" displayName="THYROID STIM HORMONE (TSH)" /> <statusCode code="completed&quot ; /> <effectiveTime value="807812402241" /> < value unit="uIU/mL" xsi:type="PQ" value="8.72" /& gt; <interpretationCode codeSystem="local" code="*& quot; /> <referenceRange> <observationRange> <text>0.34-4.82</text></observationRange> </referenceRange> </observation> </component> </organizer> </entry> <entry> <organizer moodCode= "EVN" classCode="BATTERY"> <templateId root=&quot ;2.16.840.1.372618.10.20.22.4.1" /> <id nullFlavor="NA&quot ; /> <code codeSystem="local" code="GLUMON" displayName="GLUCOSE (POC)" /> <statusCode code=" completed" /> <component> <observation moodCode=& quot;EVN" classCode="OBS"> <templateId root=" 2.16.840.1.782975.10.20.22.4.2" /> <id nullFlavor="NA" /& gt; <code codeSystem="local" code="GLUMON" displayName="GLUCOSE (POC)" /> <statusCode code=" completed" /> <effectiveTime value="637977539545" /> <value unit="mg/dL" xsi:type="PQ" value=& quot;164" /> <interpretationCodecodeSystem="local&quot ; code="*" /> <referenceRange> < observationRange> <text>70-99</text> < /observationRange> </referenceRange> </observation& gt; </component> </organizer> </entry> <entry&gt ; <organizer moodCode="EVN" classCode="BATTERY"> <templateId root="2.16.840.1.057031.10.20.22.4.1" /> & lt;id nullFlavor="NA" /> <code codeSystem="local&quot ; code="HH" displayName="HGB HCT" /> < statusCode code="completed" /> <component> < observation moodCode="EVN" classCode="OBS"> < templateId root="2.16.840.1.713690.10.20.22.4.2" /> < id nullFlavor="NA" /> <code codeSystem="local&quot ; code="MCV" displayName="MEAN CELL VOLUME" /> & lt;statusCode code="completed" /> <effectiveTime value= "761997588803" /> <value unit="fl" xsi:type=& quot;PQ" value="102.8" /> <interpretationCode codeSystem="local" code="*" /> < referenceRange> <observationRange><text>80.0-100.0< /text> </observationRange> </referenceRange> </observation> </component> <component> <observation moodCode="EVN" classCode="OBS"> <templateId root="2.16.840.1.787173.10.20.22.4.2" /> <id nullFlavor="NA" /> <code codeSystem=" local" code="HGBT" displayName="HEMOGLOBIN" /> <statusCode code="completed" /> <effectiveTime value="886315242277" /> <value unit="gm/dL" xsi:type="PQ" value="8.7" /> < interpretationCode codeSystem="local" code="*" /> <referenceRange> <observationRange> < text>12.0-16.0</text> </observationRange> &lt ;/referenceRange> </observation> </component> &lt ;component> <observation moodCode="EVN" classCode=" OBS"> <templateId root="2.16.840.1.421277.10.20.22.4.2& quot; /> <id nullFlavor="NA" /> <code codeSystem="local" code="HCTT" displayName="HEMATOCRIT& quot; /> <statusCode code="completed" /> & lt;effectiveTime value="057286990593" /> <value unit=& quot;%" xsi:type="PQ" value="29.2" /> <interpretationCode codeSystem="local" code="*" /&gt ; <referenceRange> <observationRange> < text>37.0-47.0</text> </observationRange> &lt ;/referenceRange> </observation> </component> < /organizer> </entry> <entry> <organizer moodCode=" EVN" classCode="BATTERY"> <templateId root=" 2.16.840.1.588976.10.20.22.4.1" /> <id nullFlavor="NA" /& gt; <code codeSystem="local" code="GLUMON" displayName="GLUCOSE (POC)" /> <statusCode code=" completed" /> <component> <observation moodCode=& quot;EVN" classCode="OBS"> <templateId root=" 2.16.840.1.069210.10.20.22.4.2" /> <id nullFlavor="NA& quot; /> <code codeSystem="local" code="GLUMON& quot; displayName="GLUCOSE (POC)" /> <statusCode code=& quot;completed" /> <effectiveTime value="[id number]&quot ; /> <value unit="mg/dL" xsi:type="PQ" value= "151" /> <interpretationCode codeSystem="local& quot; code="*" /> <referenceRange> < observationRange> <text>70-99</text> < /observationRange> </referenceRange> </observation& gt; </component> </organizer> </entry> <entry&gt ; <organizer moodCode="EVN" classCode="BATTERY"> <templateId root="[id number]" /> < id nullFlavor="NA" /> <code codeSystem="local" code="HH" displayName="HGB HCT" /> <statusCode code="completed" /> <component><observation moodCode= "EVN" classCode="OBS"> <templateId root=&quot ;2.16.840.1.404045.10.20.22.4.2" /> <id nullFlavor="NA& quot; /> <code codeSystem="local" code="MCV" displayName="MEAN CELL VOLUME" /> <statusCode code=& quot;completed" /> <effectiveTime value="[id number]& quot; /> <value unit="fl" xsi:type="PQ" value ="102.4" /> <interpretationCode codeSystem="local& quot; code="*"/> <referenceRange> < observationRange> <text>80.0-100.0</text> </observationRange> </referenceRange> </ observation> </component> <component> < observation moodCode="EVN" classCode="OBS"> < templateId root="2.16.840.1.017329.10.20.22.4.2" /> < id nullFlavor="NA" /> <code codeSystem="local&quot ; code="HGBT" displayName="HEMOGLOBIN" /> < statusCodecode="completed" /> <effectiveTime value=& quot;969367758987" /> <value unit="gm/dL" xsi:type=& quot;PQ" value="8.9" /> <interpretationCode codeSystem="local" code="*" /> < referenceRange> <observationRange> <text> 12.0-16.0</text></observationRange> </referenceRange&gt ; </observation> </component> <component> <observation moodCode="EVN" classCode="OBS"> <templateId root="2.16.840.1.891215.10.20.22.4.2" /> <id nullFlavor="NA" /> <code codeSystem=" local" code="HCTT" displayName="HEMATOCRIT" /> <statusCode code="completed" /> <effectiveTime value="764187450319" /> <value unit="%& quot; xsi:type="PQ" value="30.4" /> < interpretationCode codeSystem="local" code="*" /> <referenceRange> <observationRange> < text>37.0-47.0</text> </observationRange> </ referenceRange> </observation> </component> </ organizer> </entry> <entry> <organizer moodCode="EVN " classCode="BATTERY"> <templateId root=" 2.16.840.1.505062.10.20.22.4.1" /> <id nullFlavor="NA&quot ; /> <code codeSystem="local" code="HELICOAG" displayName="AG HELICOBACTER PYLORI" /> <statusCode code=& quot;completed" /> <component> <observation moodCode ="EVN" classCode="OBS"> <templateId root=&quot ;2.16.840.1.969999.10.20.22.4.2" /> <id nullFlavor="NA& quot; /> <code codeSystem="local" code="MB" displayName="Microbiology" /> <statusCode code=" completed" /> <effectiveTime value="086132425503" /> <value xsi:type="ST" value="<pre><b&gt ;AG HELICOBACTER PYLORI</b> See BelowAG HELICOBACTER PYLORI(F)Claudia Date/ Time: 03/11/2014 18:30 Johann Date/Time: 03/11/2014 20:16SOURCE: STOOLSPEC DESC: [facility] [id number] [place] [address]</pre>" /> < referenceRange> <observationRange> <text /> </observationRange> </referenceRange> </ observation> </component> </organizer> </entry> & lt;entry> <organizer moodCode="EVN" classCode="BATTERY& quot;> <templateId root="2.16.840.1.758205.10.20.22.4.1" /& gt; <id nullFlavor="NA" /> <code codeSystem=" local" code="GLUMON" displayName="GLUCOSE (POC)" /> <statusCode code="completed" /> <component> <observation moodCode="EVN" classCode="OBS"> <templateId root="2.16.840.1.922938.10.20.22.4.2" /> & lt;id nullFlavor="NA" /> <code codeSystem="local& quot; code="GLUMON" displayName="GLUCOSE (POC)" /> <statusCode code="completed" /> <effectiveTime value="863894496202" /> <value unit="mg/dL" xsi:type="PQ" value="196" /> < interpretationCode codeSystem="local" code="*" /> <referenceRange> <observationRange> < text>70-99</text> </observationRange> </ referenceRange> </observation> </component> </ organizer> </entry> <entry> <organizer moodCode="EVN " classCode="BATTERY"> <templateId root=" 2.16.840.1.992539.10.20.22.4.1" /> <id nullFlavor="NA&quot ; /> <code codeSystem="local" code="HH" displayName="HGB HCT" /> <statusCode code="completed " /> <component> <observation moodCode="EVN& quot; classCode="OBS"> <templateId root=" 2.16.840.1.680156.10..22.4.2" /> <id nullFlavor="NA" /& gt; <code codeSystem="local" code="MCV" displayName="MEAN CELL VOLUME" /> <statusCode code=& quot;completed" /> <effectiveTime value="820560572850& quot; /> <value unit="fl" xsi:type="PQ" value ="102.0" /> <interpretationCode codeSystem="local& quot; code="*" /> <referenceRange> < observationRange> <text>80.0-100.0</text> </observationRange> </referenceRange> </ observation> </component> <component> < observation moodCode="EVN" classCode="OBS"> < templateId root="2.16.840.1.046078.10.20.22.4.2" /> < id nullFlavor="NA" /> <code codeSystem="local&quot ; code="HGBT" displayName="HEMOGLOBIN" /> < statusCode code="completed" /> <effectiveTime value=& quot;734641190855" /> <value unit="gm/dL" xsi:type ="PQ" value="7.8" /> <interpretationCode codeSystem="local" code="*" /> < referenceRange> <observationRange> <text>12.0-16.0< /text> </observationRange> </referenceRange> </observation> </component> <component> <observation moodCode="EVN" classCode="OBS"> <templateId root="2.16.840.1.471702.10.20.22.4.2" /> <id nullFlavor="NA" /> <code codeSystem=" local" code="HCTT" displayName="HEMATOCRIT" /> <statusCode code="completed" /> <effectiveTime value="055567341496" /> <value unit="%& quot; xsi:type="PQ" value="26.0" /> < interpretationCode codeSystem="local" code="*" /> < referenceRange> <observationRange> <text> 37.0-47.0</text> </observationRange> </ referenceRange> </observation> </component> </ organizer> </entry> <entry> <organizer moodCode="EVN " classCode="BATTERY"> <templateId root=" 2.16.840.1.870281.10.20.22.4.1" /> <id nullFlavor="NA&quot ; /> <code codeSystem="local" code="GLUMON" displayName="GLUCOSE (POC)" /> <statusCode code=" completed" /> <component> <observation moodCode=& quot;EVN" classCode="OBS"> <templateId root=" 2.16.840.1.175931.10.20.22.4.2" /> <id nullFlavor="NA& quot; /> <code codeSystem="local" code="GLUMON& quot; displayName="GLUCOSE (POC)" /> <statusCode code=& quot;completed" /> <effectiveTime value="745517352528& quot; /> <value unit="mg/dL" xsi:type="PQ" value=& quot;166" /> <interpretationCode codeSystem="local&quot ; code="*" /> <referenceRange> < observationRange> <text>70-99</text> < /observationRange> </referenceRange> </observation& gt; </component> </organizer> </entry> <entry&gt ; <organizer moodCode="EVN" classCode="BATTERY"> <templateId root="2.16.840.1.220894.10.20.22.4.1" /> & lt;id nullFlavor="NA" /> <code codeSystem="local&quot ; code="CBCM" displayName="CBC W/MANUAL DIFF" /> &lt ;statusCode code="completed" /> <component> < observation moodCode="EVN" classCode="OBS"> < templateId root="2.16.840.1.438130.10.20.22.4.2" /> < id nullFlavor="NA" /> <code codeSystem="local&quot ; code="MCH" displayName="MEAN CELL HGB" /> < statusCode code="completed" /> <effectiveTime value=& quot;711212750339" /> <value unit="pg" xsi:type=& quot;PQ" value="30.2" /> <referenceRange> < observationRange> <text>27.0-33.0</text> </observationRange> </referenceRange> </ observation> </component><component> <observation moodCode="EVN" classCode="OBS"> <templateId root=& quot;2.16.840.1.374629.10.20.22.4.2" /> <id nullFlavor=&quot ;NA" /> <code codeSystem="local" code="MCHC& quot; displayName="MEAN CELL HGB CONCENTRATION" /> < statusCode code="completed" /> <effectiveTime value=& quot;955222775396" /> <value unit="g/dL" xsi:type= "PQ" value="29.4" /> <interpretationCode codeSystem="local" code="*" /> < referenceRange> <observationRange> <text> 32.0-37.0</text> </observationRange> </ referenceRange> </observation> </component> < component> <observation moodCode="EVN" classCode=" OBS"> <templateId root="2.16.840.1.002730.10.20.22.4.2& quot; /> <id nullFlavor="NA" /> <code codeSystem="local" code="MCV" displayName="MEAN CELL VOLUME" /> <statusCode code="completed" /> <effectiveTime value="210135677486" /> <value unit="fl" xsi:type="PQ"value="102.7" /> <interpretationCode codeSystem="local" code="*" /> <referenceRange> <observationRange> <text>80.0-100.0</text> </observationRange> </referenceRange> </observation> </component&gt ; <component> <observation moodCode="EVN" classCode="OBS"> <templateId root=" 2.16.840.1.184531.10.20.22.4.2" /> <id nullFlavor="NA& quot; /> <code codeSystem="local" code="RBC" displayName="RED BLOOD CELL" /> <statusCode code=" completed" /> <effectiveTime value="474881193136" /> <value unit="m/cumm" xsi:type="PQ" value=& quot;2.58" /> <interpretationCode codeSystem="local& quot; code="*" /> <referenceRange> < observationRange> <text>4.00-6.00</text> </observationRange> </referenceRange> </ observation> </component> <component> < observation moodCode="EVN" classCode="OBS"> < templateId root="2.16.840.1.580396.10.20.22.4.2" /> < id nullFlavor="NA" /> <code codeSystem="local&quot ; code="RDW" displayName="RED CELL DISTRIBUTION WIDTH" /&gt ; <statusCode code="completed" /> < effectiveTime value="104841604582" /> <value unit="&# 37;" xsi:type="PQ" value="24.2" />< interpretationCode codeSystem="local" code="*" /> <referenceRange> <observationRange> < text>11.0-15.6</text> </observationRange> </ referenceRange> </observation> </component> < component> <observation moodCode="EVN" classCode=" OBS"> <templateId root="2.16.840.1.858105.10..22.4.2& quot; /> <id nullFlavor="NA" /> <code codeSystem="local" code="WBC" displayName="WHITE BLOOD CELL" /> <statusCode code="completed" /> <effectiveTime value="909294978042" /> <value unit="k/cumm" xsi:type="PQ" value="9.9" /> <referenceRange> <observationRange> < text>5.0-10.0</text> </observationRange> < /referenceRange> </observation> </component> < component> <observation moodCode="EVN" classCode=" OBS"> <templateId root="2.16.840.1.184537.10.20.22.4.2& quot; /> <id nullFlavor="NA" /> <code codeSystem="local" code="HGBT" displayName="HEMOGLOBIN& quot; /> <statusCode code="completed" /> & lt;effectiveTime value="712730857600" /> <value unit=& quot;gm/dL" xsi:type="PQ" value="7.8" /> & lt;interpretationCode codeSystem="local" code="*" /> <referenceRange> <observationRange> < text>12.0-16.0</text> </observationRange> &lt ;/referenceRange> </observation> </component> & lt;component> <observation moodCode="EVN" classCode=&quot ;OBS"> <templateId root="2.16.840.1.119216.10.20.22.4.2 " /> <id nullFlavor="NA" /><code codeSystem= "local" code="HCTT" displayName="HEMATOCRIT" /&gt ; <statusCode code="completed" /> < effectiveTime value="872901155785" /> <value unit=&quot ;%" xsi:type="PQ" value="26.5" /> & lt;interpretationCode codeSystem="local" code="*" /> <referenceRange> <observationRange> & lt;text>37.0-47.0</text> </observationRange> </referenceRange> </observation> </component> <component> <observation moodCode="EVN" classCode=& quot;OBS"> <templateId root=" 2.16.840.1.820943.10..22.4.2" /> <id nullFlavor="NA& quot; /> <code codeSystem="local" code="PLT" displayName="PLATELET COUNT" /> <statusCode code=" completed" /> <effectiveTime value="238446270779" /> <value unit="k/cumm" xsi:type="PQ" value=" 148" /> <interpretationCode codeSystem="local" code="*" /> <referenceRange> < observationRange> <text>150-400</text> & lt;/observationRange> </referenceRange> </ observation> </component> </organizer> </entry> & lt;entry> <organizer moodCode="EVN" classCode="BATTERY& quot;> <templateId root="2.16.840.1.298022.10.20.22.4.1" /& gt; <id nullFlavor="NA" /> <code codeSystem=" local" code="DIFFMORD" displayName="MANUAL DIFF(O)" /& gt; <statusCode code="completed" /> <component> <observation moodCode="EVN" classCode="OBS"> <templateId root="2.16.840.1.328203.10.20.22.4.2" /> <id nullFlavor="NA" /> <code codeSystem=" local" code="BAND%" displayName="BAND %&quot ; /> <statusCode code="completed" /> < effectiveTime value="216470722113" /> <value unit=&quot ;%" xsi:type="PQ" value="1" /> < referenceRange> <observationRange> <text> 0-10</text></observationRange> </referenceRange> </observation> </component> <component> & lt;observation moodCode="EVN" classCode="OBS"> & lt;templateId root="2.16.840.1.172121.10.20.22.4.2" /> &lt ;id nullFlavor="NA" /> <code codeSystem="local& quot; code="EO#" displayName="EOSINOPHIL #" /> & lt;statusCode code="completed" /> <effectiveTime value= "627107722417" /> <value unit="k/cumm" xsi: type="PQ" value="0.2" /> <referenceRange> <observationRange> <text>0.1-0.5</text> </observationRange> </referenceRange> </ observation> </component> <component> < observation moodCode="EVN" classCode="OBS"> < templateId root="2.16.840.1.191126.10.20.22.4.2" /> < id nullFlavor="NA" /> <code codeSystem="local&quot ; code="EO%" displayName="EOSINOPHIL %" /&gt ; <statusCode code="completed" /> < effectiveTime value="564318965321" /> <value unit=&quot ;%" xsi:type="PQ" value="2" /> < referenceRange><observationRange> <text>2-4</text > </observationRange> </referenceRange> </observation> </component> <component> & lt;observation moodCode="EVN" classCode="OBS"> & lt;templateId root="2.16.840.1.925826.10..22.4.2" /> &lt ;id nullFlavor="NA" /> <code codeSystem="local& quot; code="GR#" displayName="GRANULOCYTE #" /> <statusCode code="completed" /> <effectiveTime value ="291269550268" /> <value unit="k/cumm" xsi: type="PQ" value="8.5" /> <referenceRange> <observationRange> <text>2.0-9.0</text& gt; </observationRange> </referenceRange> </observation> </component> <component>< observation moodCode="EVN" classCode="OBS"> < templateId root="2.16.840.1.689242.10..22.4.2" /> < id nullFlavor="NA" /> <code codeSystem="local" code ="LY#" displayName="LYMPHOCYTE #" /> < statusCode code="completed" /> <effectiveTime value=& quot;147017727922" /> <value unit="k/cumm" xsi: type="PQ" value="0.2" /> <interpretationCode codeSystem="local" code="*" /> < referenceRange> <observationRange> <text> 1.0-4.0</text> </observationRange> </ referenceRange> </observation> </component> < component> <observation moodCode="EVN" classCode=" OBS"> <templateId root="2.16.840.1.653561.10.20.22.4.2& quot; /> <id nullFlavor="NA" /> <code codeSystem="local" code="LY%" displayName=" LYMPHOCYTE %" /> <statusCode code="completed& quot; /> <effectiveTime value="092277511634" /> <value unit="%" xsi:type="PQ" value="2 " /> <interpretationCode codeSystem="local" code=& quot;*" /> <referenceRange> < observationRange> <text>20-30</text> </ observationRange> </referenceRange> </observation&gt ; </component> <component> <observation moodCode=& quot;EVN" classCode="OBS"> <templateId root=" 2.16.840.1.366843.10.20.22.4.2" /> <id nullFlavor="NA&quot ; /> <code codeSystem="local" code="MANDIFF" displayName="DIFFERENTIAL" /> <statusCode code=" completed" /> <effectiveTime value="369430671794" /> <value unit="" xsi:type="PQ" value=" MANUAL" /> <referenceRange> < observationRange> <text /> </ observationRange> </referenceRange> </observation&gt ; </component> <component> <observation moodCode ="EVN" classCode="OBS"> <templateId root=& quot;2.16.840.1.792587.10.20.22.4.2" /> <id nullFlavor=&quot ;NA" /> <code codeSystem="local" code="META& amp;#37;" displayName="METAMYELOCYTE %" /> & lt;statusCode code="completed" /> <effectiveTime value=& quot;534990189642" /> <value unit="%" xsi: type="PQ" value="2" /> <interpretationCode codeSystem="local" code="*" /> < referenceRange> <observationRange> <text /& gt; </observationRange> </referenceRange> </observation> </component> <component> &lt ;observation moodCode="EVN" classCode="OBS"> &lt ;templateId root="2.16.840.1.504444.10.20.22.4.2" /> < id nullFlavor="NA" /> <code codeSystem="local&quot ; code="MO#" displayName="MONOCYTE #" /> < statusCode code="completed" /> <effectiveTime value=& quot;907980040564" /> <value unit="k/cumm" xsi: type="PQ" value="0.8" /> <referenceRange> <observationRange> <text>0.1-1.0</text& gt; </observationRange> </referenceRange> </observation> </component> <component> &lt ;observation moodCode="EVN" classCode="OBS"> &lt ;templateId root="2.16.840.1.497861.10..22.4.2" /> < id nullFlavor="NA" /> <code codeSystem="local&quot ; code="MO%" displayName="MONOCYTE %" /> <statusCode code="completed" /> < effectiveTime value="636943535655" /> <value unit=&quot ;%" xsi:type="PQ" value="8" /> < interpretationCode codeSystem="local" code="*" /> <referenceRange> <observationRange> < text>4-6</text> </observationRange> </ referenceRange> </observation> </component> < component> <observation moodCode="EVN" classCode=" OBS"> <templateId root="2.16.840.1.030929.10.20.22.4.2& quot; /> <id nullFlavor="NA" /> <code codeSystem= "local" code="NRBC" displayName="NUCLEATED RED BLOOD CELL" /> <statusCode code="completed" /> <effectiveTime value="537544868157" /> <value unit="/100WBC" xsi:type="PQ" value="3" /> <interpretationCode codeSystem="local" code="*" /&gt ; <referenceRange> <observationRange> < text /> </observationRange> </referenceRange> & lt;/observation> </component> <component> < observation moodCode="EVN" classCode="OBS"> < templateIdroot="2.16.840.1.002899.10.20.22.4.2" /> <id nullFlavor="NA" /> <code codeSystem="local" code="OVAL" displayName="OVALOCYTES" /> < statusCode code="completed" /> <effectiveTime value=& quot;757428440149" /> <value unit="" xsi:type=& quot;PQ" value="NOTED" /> <referenceRange> <observationRange><text /> </observationRange& gt; </referenceRange> </observation> </ component> <component> <observation moodCode="EVN& quot; classCode="OBS"> <templateId root=" 2.16.840.1.253402.10..22.4.2" /> <id nullFlavor="NA& quot; /> <code codeSystem="local" code="POLC&quot ; displayName="POLYCHROMASIA" /> <statusCode code=&quot ;completed" /> <effectiveTime value="339005732227&quot ; /> <value unit="" xsi:type="PQ" value="MARKED& quot; /> <referenceRange> <observationRange> <text /> </observationRange> </ referenceRange> </observation> </component> < component> <observation moodCode="EVN" classCode=" OBS"> <templateId root="2.16.840.1.502211.10.20.22.4.2& quot; /> <id nullFlavor="NA" /> <code codeSystem="local" code="FABIOLA" displayName="SCHISTOCYTES " /> <statusCode code="completed" /> & lt;effectiveTime value="241739512314" /> <value unit=& quot;" xsi:type="PQ" value="NOTED" /> < referenceRange> <observationRange> <text /& gt; </observationRange> </referenceRange> </observation> </component> <component> &lt ;observation moodCode="EVN" classCode="OBS"> &lt ;templateId root="2.16.840.1.752106.10.20.22.4.2" /> < id nullFlavor="NA" /> <code codeSystem="local&quot ; code="SEG%" displayName="SEGMENTED NEUTROPHIL % " /> <statusCode code="completed" /> & lt;effectiveTime value="611259989435" /> <value unit=& quot;%" xsi:type="PQ" value="85" /> <interpretationCode codeSystem="local" code="*" /> <referenceRange> <observationRange> <text&gt ;50-70</text> </observationRange> </ referenceRange> </observation> </component> < component> <observation moodCode="EVN" classCode=" OBS"> <templateId root="2.16.840.1.330292.10.20.22.4.2& quot; /> <id nullFlavor="NA" /> <code codeSystem="local" code="TEAR" displayName="TEAR DROP CELLS" /> <statusCode code="completed" /> < effectiveTime value="990781476529" /> <value unit=&quot ;" xsi:type="PQ" value="NOTED" /> < referenceRange> <observationRange> <text /& gt; </observationRange> </referenceRange> &lt ;/observation> </component> </organizer> </entry> <entry> <organizer moodCode="EVN" classCode=" BATTERY"> <templateId root="2.16.840.1.451484.10.20.22.4.1& quot; /> <id nullFlavor="NA" /> <code codeSystem ="local" code="HH" displayName="HGB HCT" /> <statusCode code="completed" /> <component> <observation moodCode="EVN" classCode="OBS"> <templateId root="2.16.840.1.634942.10..22.4.2" /> < id nullFlavor="NA" /> <code codeSystem="local&quot ; code="MCV" displayName="MEAN CELL VOLUME" /> & lt;statusCode code="completed" /> <effectiveTime value= "907528376928" /> <value unit="fl" xsi:type=& quot;PQ" value="102.3" /> <interpretationCode codeSystem="local" code="*" /> < referenceRange> <observationRange> <text> 80.0-100.0</text> </observationRange> </ referenceRange> </observation> </component> < component> <observation moodCode="EVN" classCode=" OBS"> <templateId root="2.16.840.1.458699.10.20.22.4.2& quot; /> <id nullFlavor="NA" /> <code codeSystem="local" code="HGBT" displayName="HEMOGLOBIN& quot; /> <statusCode code="completed" /> & lt;effectiveTime value="159319810391" /> <value unit=& quot;gm/dL" xsi:type="PQ" value="7.8" /> & lt;interpretationCode codeSystem="local" code="*" /> <referenceRange> <observationRange> <text> 12.0-16.0</text> </observationRange> </ referenceRange> </observation> </component> < component> <observation moodCode="EVN" classCode=" OBS"> <templateId root="2.16.840.1.356235.10.20.22.4.2& quot; /> <id nullFlavor="NA" /> <code codeSystem="local" code="HCTT" displayName="HEMATOCRIT& quot; /> <statusCode code="completed" /> & lt;effectiveTime value="503409730709" /> <value unit=& quot;%" xsi:type="PQ" value="26.8" /> <interpretationCode codeSystem="local" code="*" /&gt ; <referenceRange> <observationRange> < text>37.0-47.0</text> </observationRange> &lt ;/referenceRange> </observation> </component> < /organizer> </entry> <entry> <organizer moodCode=" EVN" classCode="BATTERY"> <templateId root=" 2.16.840.1.979107.10.20.22.4.1" /> <id nullFlavor="NA&quot ; /> <code codeSystem="local" code="METAB" displayName="METABOLIC PANEL, BASIC" /> <statusCode code=& quot;completed" /> <component> <observation moodCode="EVN" classCode="OBS"> <templateId root="2.16.840.1.539667.10.20.22.4.2" /> <id nullFlavor ="NA" /> <code codeSystem="local" code=" K" displayName="POTASSIUM" /> <statusCode code=& quot;completed" /> <effectiveTime value="327568753774& quot; /> <value unit="mmol/L" xsi:type="PQ" value=& quot;4.2" /> <referenceRange> < observationRange> <text>3.5-5.3</text> &lt ;/observationRange> </referenceRange> </observation& gt; </component> <component> <observation moodCode=& quot;EVN" classCode="OBS"> <templateId root=" 2.16.840.1.044479.10..22.4.2" /> <id nullFlavor="NA&quot ; /> <code codeSystem="local" code="eGFR" displayName="EST GFR (MDRD)" /> <statusCode code=" completed" /> <effectiveTime value="738303489155" /> <value unit="mL/min" xsi:type="PQ" value=& quot;> 60" /> <referenceRange> < observationRange> <text>> 59</text> & lt;/observationRange> </referenceRange> </ observation> </component> <component> < observation moodCode="EVN" classCode="OBS"> < templateId root="2.16.840.1.643603.10.20.22.4.2" /> <id nullFlavor="NA" /> <code codeSystem="local" code="GAP" displayName="ANION GAP" /> < statusCode code="completed"/> <effectiveTime value=& quot;082679741569" /> <value unit="mmol/L" xsi: type="PQ" value="6" /> <referenceRange> <observationRange> <text>5-15</text> </observationRange> </referenceRange> </ observation> </component> <component> < observation moodCode="EVN" classCode="OBS"> < templateId root="2.16.840.1.777463.10.20.22.4.2" /> < id nullFlavor="NA" /> <code codeSystem="local&quot ; code="eCrCl" displayName="EST CrCl (CG)" /> & lt;statusCode code="completed" /> <effectiveTime value= "480056781133" /> <value unit="mL/min" xsi: type="PQ" value="50" /> <interpretationCode codeSystem="local" code="*" /> < referenceRange> <observationRange> <text>& gt; 59</text> </observationRange> </ referenceRange> </observation> </component> < component> <observation moodCode="EVN" classCode=" OBS"> <templateId root="2.16.840.1.941500.10..22.4.2& quot; /> <id nullFlavor="NA" /> <code codeSystem="local" code="GLU" displayName="GLUCOSE&quot ; /> <statusCode code="completed" /> < effectiveTime value="595725317122" /> <value unit=&quot ;mg/dL" xsi:type="PQ" value="155" /> < interpretationCode codeSystem="local" code="*" /> < referenceRange> <observationRange> <text> 70-99</text> </observationRange> </ referenceRange> </observation> </component> < component> <observation moodCode="EVN" classCode=" OBS"> <templateId root="2.16.840.1.651858.10.20.22.4.2& quot; /> <id nullFlavor="NA" /> <code codeSystem="local" code="CA" displayName="CALCIUM&quot ; /> <statusCode code="completed" /> < effectiveTime value="808561175947" /> <value unit=&quot ;mg/dL" xsi:type="PQ" value="8.2" /> < interpretationCode codeSystem="local" code="*" /> <referenceRange> <observationRange> < text>8.5-10.1</text> </observationRange> < /referenceRange> </observation> </component> &lt ;component> <observation moodCode="EVN" classCode=" OBS"> <templateId root="[id number]& quot; /> <id nullFlavor="NA" /> <code codeSystem="local" code="BUN" displayName="BLOOD UREA NITROGEN" /> <statusCode code="completed" /> <effectiveTime value="[id number]" /> < value unit="mg/dL" xsi:type="PQ" value="8" /> <referenceRange> <observationRange> <text>7-20</text> </observationRange> & lt;/referenceRange> </observation> </component> <component> <observation moodCode="EVN" classCode=& quot;OBS"> <templateId root=" 2.16.840.1.824671.10..22.4.2" /> <id nullFlavor="NA& quot; /> <code codeSystem="local" code="CREAT" displayName="CREATININE" /> <statusCode code=" completed" /> <effectiveTime value="704354204371" /> <value unit="mg/dL" xsi:type="PQ" value=& quot;0.8" /> <referenceRange> < observationRange> <text>0.6-1.0</text> & lt;/observationRange> </referenceRange> </observation& gt; </component> <component> <observation moodCode="EVN" classCode="OBS"> <templateId root="2.16.840.1.506153.10.20.22.4.2" /> <id nullFlavor ="NA" /> <code codeSystem="local" code=" NA" displayName="SODIUM" /> <statusCode code=&quot ;completed" /> <effectiveTime value="345847106598&quot ; /> <value unit="mmol/L" xsi:type="PQ" value=& quot;139" /> <referenceRange> <observationRange> <text>135-148</text> </observationRange& gt; </referenceRange> </observation> </ component> <component> <observation moodCode="EVN& quot; classCode="OBS"> <templateId root=" 2.16.840.1.754637.10.20.22.4.2" /> <id nullFlavor="NA& quot; /> <code codeSystem="local" code="CL" displayName="CHLORIDE" /> <statusCode code=" completed" /> <effectiveTime value="336604386432" /> <value unit="mmol/L" xsi:type="PQ" value=& quot;105" /> <referenceRange> < observationRange> <text>98-110</text> &lt ;/observationRange> </referenceRange> </observation& gt; </component> <component> <observation moodCode="EVN" classCode="OBS"> <templateId root="2.16.840.1.241922.10..22.4.2" /> <id nullFlavor ="NA" /> <code codeSystem="local" code=" CO2" displayName="CARBON DIOXIDE" /> <statusCode code="completed" /> <effectiveTime value="476707963645& quot; /> <value unit="mmol/L" xsi:type="PQ" value="28" /> <referenceRange> < observationRange> <text>21-32</text> < /observationRange> </referenceRange> </observation&gt ; </component> </organizer> </entry> <entry> <organizer moodCode="EVN" classCode="BATTERY"> <templateId root="2.16.840.1.928102.10.20.22.4.1" /> < id nullFlavor="NA" /> <code codeSystem="local" code="FETIBC" displayName="IRON W/ BINDING CAPACITY" /> <statusCode code="completed" /> <component> <observation moodCode="EVN" classCode="OBS"> <templateId root="2.16.840.1.258152.10.20.22.4.2" /> <id nullFlavor="NA" /> <code codeSystem=" local" code="FESAT" displayName="IRON SATURATION" /&gt ; <statusCode code="completed" /> < effectiveTime value="078534111700" /> <value unit=&quot ;%SAT" xsi:type="PQ" value="5" /> & lt;interpretationCode codeSystem="local" code="*" /> <referenceRange> <observationRange> & lt;text>11-46</text> </observationRange></ referenceRange> </observation> </component> < component> <observation moodCode="EVN" classCode="OBS& quot;> <templateId root="2.16.840.1.799682.10.20.22.4.2&quot ; /> <id nullFlavor="NA" /> <code codeSystem="local" code="TIBC" displayName="IRON BINDING CAPACITY, TOTAL" /> <statusCode code="completed " /> <effectiveTime value="372722950481" /> <value unit="mcg/dL" xsi:type="PQ" value="369 " /> <referenceRange> <observationRange&gt ; <text>250-450</text> </observationRange > </referenceRange> </observation> </ component> <component> <observation moodCode="EVN&quot ; classCode="OBS"> <templateId root=" 2.16.840.1.587366.10.20.22.4.2" /> <id nullFlavor="NA& quot; /> <code codeSystem="local" code="IRON" displayName="IRON" /> <statusCode code="completed& quot; /> <effectiveTime value="710887168755" /> <value unit="mcg/dL" xsi:type="PQ" value="20& quot; /> <interpretationCode codeSystem="local" code=& quot;*" /> <referenceRange> < observationRange> <text>35-150</text> &lt ;/observationRange> </referenceRange> </observation& gt; </component> </organizer> </entry> <entry&gt ; <organizer moodCode="EVN" classCode="BATTERY"> <templateId root="2.16.840.1.541316.10.20.22.4.1" /> & lt;id nullFlavor="NA" /> <code codeSystem="local&quot ; code="REG" displayName="FERRITIN" /> < statusCode code="completed" /> <component> < observation moodCode="EVN" classCode="OBS"> < templateId root="2.16.840.1.868990.10.20.22.4.2" /> < id nullFlavor="NA" /> <code codeSystem="local&quot ; code="REG" displayName="FERRITIN" /> < statusCode code="completed" /> <effectiveTime value=& quot;421541626044" /> <value unit="ng/mL" xsi:type ="PQ" value="30" /> <referenceRange> <observationRange> <text>8-252</text> </observationRange> </referenceRange> </ observation> </component> </organizer> </entry> & lt;entry> <organizer moodCode="EVN"classCode="BATTERY& quot;> <templateId root="2.16.840.1.036264.10.20.22.4.1" /& gt; <id nullFlavor="NA" /> <code codeSystem=" local" code="UBBF7AQ" displayName="ALPHA 1 ANTITRYPSIN&quot ; /> <statusCode code="completed" /> <component& gt; <observation moodCode="EVN" classCode="OBS"&gt ; <templateId root="2.16.840.1.467382.10.20.22.4.2" /> <id nullFlavor="NA" /> <code codeSystem=" local" code="QIGG6MQ" displayName="ALPHA 1 ANTITRYPSIN&quot ; /> <statusCode code="completed" /> < effectiveTime value="871955267188" /> <value unit=&quot ;mg/dL" xsi:type="PQ" value="206" /> < interpretationCode codeSystem="local" code="*" /> <referenceRange> <observationRange> <text&gt ;90-200</text> </observationRange> </ referenceRange> </observation> </component> </ organizer> </entry> <entry> <organizer moodCode="EVN " classCode="BATTERY"> <templateId root=" 2.16.840.1.279904.10.20.22.4.1" /> <id nullFlavor="NA" /& gt; <code codeSystem="local" code="CER" displayName= "CERULOPLASMIN" /> <statusCode code="completed" / > <component> <observation moodCode="EVN" classCode="OBS"> <templateId root=" 2.16.840.1.944551.10.20.22.4.2" /> <id nullFlavor="NA& quot; /> <code codeSystem="local" code="CER" displayName="CERULOPLASMIN" /> <statusCode code=" completed" /> <effectiveTime value="323725845967" /> <value unit="mg/dL" xsi:type="PQ" value="39.8 " /> <referenceRange> <observationRange&gt ; <text>16.0-45.0</text> </ observationRange> </referenceRange> </observation&gt ; </component> </organizer> </entry> <entry> <organizer moodCode="EVN" classCode="BATTERY"> <templateId root="2.16.840.1.972840.10.20.22.4.1" /> < id nullFlavor="NA" /> <code codeSystem="local" code="IGGAM" displayName="IMMUNOGLOB QUANT G,A,M" /> <statusCode code="completed" /> <component> & lt;observation moodCode="EVN" classCode="OBS"> & lt;templateId root="2.16.840.1.789103.10.20.22.4.2" /> &lt ;id nullFlavor="NA" /> <code codeSystem="local& quot; code="IGA" displayName="IMMUNOGLOBULIN A" /> <statusCode code="completed" /> <effectiveTime value=& quot;404015719977" /> <value unit="mg/dL"xsi:type= "PQ" value="202" /> <referenceRange> <observationRange> <text>70-400</text> </observationRange> </referenceRange> </ observation> </component> <component> < observation moodCode="EVN" classCode="OBS"> < templateId root="2.16.840.1.298221.10..22.4.2" /> < id nullFlavor="NA" /> <code codeSystem="local&quot ; code="IGG" displayName="IMMUNOGLOBULIN G" /> & lt;statusCode code="completed" /> <effectiveTime value= "943086770365" /> <value unit="mg/dL" xsi: type="PQ" value="540" /> <interpretationCode codeSystem="local" code="*" /> < referenceRange> <observationRange> <text>700-1600</ text> </observationRange> </referenceRange> </observation> </component> <component> <observation moodCode="EVN" classCode="OBS"> <templateId root="2.16.840.1.368965.10.20.22.4.2" /> <id nullFlavor="NA" /> <code codeSystem=" local" code="IGM" displayName="IMMUNOGLOBULIN M" /> <statusCode code="completed" /> <effectiveTime value="348364432995" /> <value unit="mg/dL" xsi:type="PQ" value="34"/> < interpretationCode codeSystem="local" code="*" />< referenceRange> <observationRange> <text> 40-230</text> </observationRange> </ referenceRange> </observation> </component> </ organizer> </entry> <entry> <organizer moodCode="EVN " classCode="BATTERY"> <templateId root=" 2.16.840.1.333141.10.20.22.4.1" /> <id nullFlavor="NA&quot ; /> <code codeSystem="local" code="HEPAT" displayName="HEPATITIS PANEL-ACUTE" /> <statusCode code=& quot;completed" /> <component> <observation moodCode="EVN" classCode="OBS"> <templateId root="2.16.840.1.045486.10.20.22.4.2" /> <id nullFlavor ="NA" /> <code codeSystem="local" code=" HAVMAB" displayName="AB HEPATITIS A IGM" /> < statusCode code="completed" /> <effectiveTime value=& quot;273312729509" /> <value unit="" xsi:type=& quot;PQ" value="NEGATIVE" /> <referenceRange> <observationRange> <text>NEGATIVE</text> </observationRange> </referenceRange> </ observation> </component> <component> < observation moodCode="EVN" classCode="OBS"> < templateId root="2.16.840.1.705006.10.20.22.4.2"/> <id nullFlavor="NA" /> <code codeSystem="local" code="HBSAG" displayName="AG HEPATITIS B SURF." /> <statusCode code="completed" /> <effectiveTime value="560830752106" /> <value unit="" xsi:type=&quot ;PQ" value="NEGATIVE" /> <referenceRange> <observationRange> <text>NEGATIVE</text> </observationRange> </referenceRange> < /observation> </component> <component> < observation moodCode="EVN" classCode="OBS"> < templateId root="2.16.840.1.665373.10.20.22.4.2" /> <id nullFlavor="NA" /> <code codeSystem="local" code="HBCMAB" displayName="AB HEPATITIS B CORE IGM" /> <statusCode code="completed" /> < effectiveTime value="352655350174" /> <value unit=&quot ;" xsi:type="PQ" value="NEGATIVE" /> < referenceRange> <observationRange> <text> NEGATIVE</text> </observationRange> </ referenceRange> </observation> </component> < component> <observation moodCode="EVN" classCode=" OBS"> <templateId root="2.16.840.1.493593.10.20.22.4.2& quot; /> <id nullFlavor="NA" /> <code codeSystem="local" code="HCVAB" displayName="AB HEPATITIS C" /> <statusCode code="completed" /&gt ; <effectiveTime value="281567378495" /> < value unit="" xsi:type="PQ" value="NEGATIVE" /&gt ; <referenceRange> <observationRange> <text>NEGATIVE</text> </observationRange> </referenceRange> </observation> </component> </organizer> </entry> <entry> <organizer moodCode= "EVN" classCode="BATTERY"> <templateId root=&quot ;2.16.840.1.456388.10.20.22.4.1" /> <id nullFlavor="NA&quot ; /> <code codeSystem="local" code="ABDULAZIZ" displayName="AB ANTI NUCLEAR" /> <statusCode code=" completed" /> <component> <observation moodCode=& quot;EVN" classCode="OBS"> <templateId root=" 2.16.840.1.529485.10.20.22.4.2" /> <id nullFlavor="NA& quot; /> <code codeSystem="local" code="RONA&quot ; displayName="ABDULAZIZ" /> <statusCode code="completed " /> <effectiveTime value="529611957105" /> &lt ;value unit="" xsi:type="PQ" value="NEGATIVE" /&gt ; <referenceRange> <observationRange> <text>Negative</text> </observationRange> </referenceRange> </observation> </component> </organizer> </entry> <entry> <organizer moodCode=& quot;EVN" classCode="BATTERY"> <templateId root=" 2.16.840.1.674754.10.20.22.4.1" /> <id nullFlavor="NA&quot ; /> <code codeSystem="local" code="AMA" displayName="AB ANTI MITOCHONDRIAL" /> <statusCode code=& quot;completed" /><component> <observation moodCode=& quot;EVN" classCode="OBS"> <templateId root=" 2.16.840.1.581005.10.20.22.4.2" /> <id nullFlavor="NA& quot; /> <code codeSystem="local" code="MITOAB& quot; displayName="AMA" /> <statusCode code=" completed" /> <effectiveTime value="183047113445" /> <value unit="Units" xsi:type="PQ" value=& quot;5.7" /> <referenceRange> < observationRange> <text>0.0-20.0</text> & lt;/observationRange> </referenceRange> </ observation> </component> </organizer> </entry> & lt;entry> <organizer moodCode="EVN" classCode="BATTERY& quot;> <templateId root="2.16.840.1.642766.10.20.22.4.1" /&gt ; <id nullFlavor="NA" /> <code codeSystem=" local" code="TTGAAB" displayName="TRANSGLUTAMINASE AB IGA& quot; /> <statusCode code="completed" /> < component> <observation moodCode="EVN" classCode=" OBS"> <templateId root="2.16.840.1.346884.10.20.22.4.2& quot; /> <id nullFlavor="NA" /> <code codeSystem="local" code="TTGAAB" displayName=" TRANSGLUTAMINASE AB IGA" /> <statusCode code="completed " /> <effectiveTime value="720500775508" /> & lt;value unit="U/mL" xsi:type="PQ" value="<2& quot; /> <referenceRange> <observationRange> <text>0-3</text> </observationRange> </referenceRange> </observation> </component > </organizer> </entry> <entry> <organizer moodCode="EVN" classCode="BATTERY"> <templateId root="2.16.840.1.907995.10.20.22.4.1" /> <id nullFlavor=& quot;NA" /> <code codeSystem="local" code=" LKMICAB" displayName="LIVER KIDNEY MICRO AB" /> < statusCode code="completed" /> <component> < observation moodCode="EVN" classCode="OBS"> < templateId root="2.16.840.1.089775.10.20.22.4.2" /> < id nullFlavor="NA" /> <code codeSystem="local&quot ; code="LKMICAB" displayName="LIVER KIDNEY MICRO AB" /> <statusCode code="completed" /> < effectiveTime value="080311486344" /> <value unit=&quot ;Units" xsi:type="PQ" value="2.1" /> < referenceRange> <observationRange> <text>0.0-20.0& lt;/text> </observationRange> </referenceRange& gt; </observation> </component> </organizer> & lt;/entry> <entry> <organizer moodCode="EVN" classCode ="BATTERY"> <templateId root=" 2.16.840.1.167565.10.20.22.4.1" /> <id nullFlavor="NA" /&gt ; <code codeSystem="local" code="ASMA" displayName=& quot;AB ANTI SMOOTH MUSCLE" /> <statusCode code="completed& quot; /> <component> <observation moodCode="EVN& quot; classCode="OBS"> <templateId root=" 2.16.840.1.388781.10.20.22.4.2" /> <id nullFlavor="NA& quot; /> <code codeSystem="local" code="SMTHAB& quot; displayName="ASMA" /> <statusCode code=" completed" /> <effectiveTime value="079215165946" /> <value unit="Units" xsi:type="PQ" value="5& quot; /> <referenceRange> <observationRange> <text>0-19</text> </observationRange&gt ; </referenceRange> </observation> </component&gt ; </organizer> </entry> <entry> <organizer moodCode ="EVN" classCode="BATTERY"> <templateId root=& quot;2.16.840.1.823923.10.20.22.4.1" /> <id nullFlavor="NA& quot; /> <code codeSystem="local" code="GLUMON" displayName="GLUCOSE (POC)" /> <statusCode code=" completed" /> <component> <observation moodCode=& quot;EVN" classCode="OBS"> <templateId root=" 2.16.840.1.294713.10.20.22.4.2" /> <id nullFlavor="NA& quot; /> <code codeSystem="local" code="GLUMON& quot; displayName="GLUCOSE (POC)" /> <statusCode code=& quot;completed" /> <effectiveTime value="373717538397& quot; /> <value unit="mg/dL" xsi:type="PQ" value="163" /> <interpretationCode codeSystem=" local" code="*" /> <referenceRange> <observationRange> <text>70-99</text> </ observationRange> </referenceRange> </observation&gt ; </component> </organizer> </entry> <entry> <organizer moodCode="EVN" classCode="BATTERY"> <templateId root="2.16.840.1.481735.10.20.22.4.1" /> < id nullFlavor="NA" /> <code codeSystem="local" code ="HH" displayName="HGB HCT" /> <statusCode code ="completed" /> <component> <observation moodCode="EVN" classCode="OBS"> <templateId root="2.16.840.1.724917.10.20.22.4.2" /> <id nullFlavor ="NA" /> <code codeSystem="local" code=" MCV" displayName="MEAN CELL VOLUME" /> <statusCode code=& quot;completed" /> <effectiveTime value="991415508520& quot; /> <value unit="fl" xsi:type="PQ" value ="99.0" /> <referenceRange> < observationRange> <text>80.0-100.0</text> </observationRange> </referenceRange> </ observation> </component> <component> < observation moodCode="EVN" classCode="OBS"> < templateId root="2.16.840.1.139001.10.20.22.4.2" /> < id nullFlavor="NA" /> <code codeSystem="local&quot ; code="HGBT" displayName="HEMOGLOBIN" /> < statusCode code="completed" /> <effectiveTime value=& quot;469380444609" /> <value unit="gm/dL" xsi:type=" PQ" value="8.4" /> <interpretationCode codeSystem= "local" code="*" /> <referenceRange> <observationRange> <text>12.0-16.0</text> </observationRange> </referenceRange> & lt;/observation> </component> <component> < observation moodCode="EVN" classCode="OBS"> < templateId root="2.16.840.1.332352.10..22.4.2" /> < idnullFlavor="NA" /> <code codeSystem="local&quot ; code="HCTT"displayName="HEMATOCRIT" /> < statusCode code="completed" /> <effectiveTime value=" 122036115583" /> <value unit="%" xsi:type= "PQ" value="28.6" /> <interpretationCode codeSystem="local" code="*" /> < referenceRange> <observationRange> <text> 37.0-47.0</text> </observationRange> </ referenceRange> </observation> </component> </ organizer> </entry> <entry> <organizer moodCode="EVN " classCode="BATTERY"> <templateId root=" 2.16.840.1.906584.10..22.4.1" /> <id nullFlavor="NA&quot ; /> <code codeSystem="local" code="GLUMON" displayName="GLUCOSE (POC)" /> <statusCode code=" completed" /> <component> <observation moodCode=& quot;EVN" classCode="OBS"> <templateId root=" 2.16.840.1.443383.10.20.22.4.2" /> <id nullFlavor="NA& quot; /> <code codeSystem="local" code="GLUMON& quot; displayName="GLUCOSE (POC)" /> <statusCode code=& quot;completed" /> <effectiveTime value="006281623100& quot; /> <value unit="mg/dL" xsi:type="PQ" value="152" /> <interpretationCode codeSystem=" local" code="*" /> <referenceRange> <observationRange> <text>70-99</text> </ observationRange> </referenceRange> </observation&gt ; </component> </organizer> </entry> <entry> <organizer moodCode="EVN" classCode="BATTERY"> <templateId root="2.16.840.1.689718.10.20.22.4.1" /> < id nullFlavor="NA" /> <code codeSystem="local" code ="HH" displayName="HGB HCT" /> <statusCode code ="completed" /> <component> <observation moodCode="EVN" classCode="OBS"> <templateId root="2.16.840.1.350159.10.20.22.4.2" /> <id nullFlavor ="NA" /> <code codeSystem="local" code=" MCV" displayName="MEAN CELL VOLUME" /> <statusCode code=& quot;completed" /> <effectiveTime value="294420596522& quot; /> <value unit="fl" xsi:type="PQ" value ="103.4" /> <interpretationCode codeSystem="local& quot; code="*" /> <referenceRange> < observationRange> <text>80.0-100.0</text> </observationRange> </referenceRange> </ observation> </component> <component> < observation moodCode="EVN" classCode="OBS"> < templateId root="2.16.840.1.088671.10.20.22.4.2" /> < id nullFlavor="NA" /> <code codeSystem="local&quot ; code="HGBT" displayName="HEMOGLOBIN" /> < statusCode code="completed" /> <effectiveTime value=& quot;225844458811" /> <value unit="gm/dL" xsi:type ="PQ" value="7.9" /> <interpretationCode codeSystem="local" code="*" /> < referenceRange><observationRange> <text>12.0-16.0&lt ;/text> </observationRange> </referenceRange&gt ; </observation> </component> <component> <observation moodCode="EVN" classCode="OBS"> &lt ;templateId root="2.16.840.1.589030.10.20.22.4.2" /> < id nullFlavor="NA" /> <code codeSystem="local&quot ; code="HCTT" displayName="HEMATOCRIT" /> < statusCode code="completed" /> <effectiveTime value=& quot;362762428478" /> <value unit="%" xsi: type="PQ" value="27.0" /> < interpretationCode codeSystem="local" code="*" /> <referenceRange> <observationRange> <text& gt;37.0-47.0</text> </observationRange> </ referenceRange> </observation> </component> </ organizer> </entry> <entry> <organizer moodCode="EVN " classCode="BATTERY"> <templateId root=" 2.16.840.1.679367.10.20.22.4.1" /> <id nullFlavor="NA&quot ; /> <code codeSystem="local" code="GLUMON" displayName="GLUCOSE (POC)" /> <statusCode code=" completed" /> <component> <observation moodCode="EVN " classCode="OBS"> <templateId root=" 2.16.840.1.948375.10.20.22.4.2" /> <id nullFlavor="NA& quot; /> <code codeSystem="local" code="GLUMON" displayName="GLUCOSE (POC)" /> <statusCode code=" completed" /> <effectiveTime value="499062985463" /> <value unit="mg/dL" xsi:type="PQ" value=& quot;222" /> <interpretationCode codeSystem="local&quot ; code="*" /> <referenceRange> < observationRange> <text>70-99</text> < /observationRange> </referenceRange> </observation& gt; </component> </organizer> </entry> <entry&gt ; <organizer moodCode="EVN" classCode="BATTERY"> <templateId root="2.16.840.1.382472.10.20.22.4.1" /> & lt;id nullFlavor="NA" /> <code codeSystem="local&quot ; code="CYTO" displayName="FLUID CYTOLOGY" /> < statusCode code="completed" /> <component> < observation moodCode="EVN" classCode="OBS"> < templateId root="2.16.840.1.547505.10.20.22.4.2" /> < id nullFlavor="NA" /> <code codeSystem="local&quot ; code="CYTO" displayName="FLUID CYTOLOGY" /> & lt;statusCode code="completed" /> <effectiveTime value= "144614249240" /> <value unit="" xsi:type=& quot;PQ" value="SPECIMEN RECEIVED"/> < referenceRange> <observationRange> <text /& gt; </observationRange> </referenceRange> </observation> </component> </organizer> </entry&gt ; <entry> <organizer moodCode="EVN" classCode=" BATTERY"> <templateId root="2.16.840.1.275246.10.20.22.4.1& quot; /> <id nullFlavor="NA" /> <code codeSystem ="local" code="CLCTFL" displayName="FLUID CELL CT/DIFF& quot; /> <statusCode code="completed" /> < component> <observation moodCode="EVN" classCode=" OBS"> <templateId root="2.16.840.1.298581.10.20.22.4.2& quot; /> <id nullFlavor="NA" /> <code codeSystem="local" code="APPFL" displayName="FLUID APPEARANCE-UNCENTRIFUGED" /> <statusCode code=" completed" /> <effectiveTime value="655469960673" /> <value unit="" xsi:type="PQ" value=" CLEAR" /> <referenceRange> <observationRange& gt; <text>NOT DEFINED</text> </ observationRange> </referenceRange> </observation&gt ; </component> <component> <observation moodCode ="EVN" classCode="OBS"> <templateId root=& quot;2.16.840.1.462099.10.20.22.4.2" /> <id nullFlavor=&quot ;NA" /> <code codeSystem="local" code="COLFL& quot; displayName="FLUID COLOR" /> <statusCode code=& quot;completed" /> <effectiveTime value="951850543640& quot; /><value unit="" xsi:type="PQ" value="PALE YELLOW" /> <referenceRange> < observationRange> <text>NOT DEFINED</text> </observationRange> </referenceRange> </ observation> </component> <component> < observation moodCode="EVN" classCode="OBS"> < templateId root="2.16.840.1.873978.10.20.22.4.2" /> < id nullFlavor="NA" /> <code codeSystem="local&quot ; code="LYMPHFL" displayName="FLUID LYMPH" /> & lt;statusCode code="completed" /> <effectiveTime value= "083303361652" /> <value unit="%" xsi :type="PQ" value="44" /> <referenceRange> <observationRange> <text>NOT DEFINED</ text> </observationRange> </referenceRange> </observation> </component> <component> < observation moodCode="EVN" classCode="OBS"> < templateId root="2.16.840.1.636839.10.20.22.4.2" /> <id nullFlavor="NA" /> <code codeSystem="local" code="MONOFL" displayName="FLUID MONO" /> < statusCode code="completed" /> <effectiveTime value=& quot;482019730645" /> <value unit="%" xsi: type="PQ" value="47" /> <referenceRange> <observationRange> <text>NOT DEFINED</text& gt; </observationRange> </referenceRange> </observation> </component> <component> &lt ;observation moodCode="EVN" classCode="OBS"> &lt ;templateId root="2.16.840.1.206615.10.20.22.4.2" /> < id nullFlavor="NA" /> <code codeSystem="local&quot ; code="RBCFL" displayName="FLUID RBC" /> < statusCode code="completed" /> <effectiveTime value=" 442850078866" /> <value unit="#/cumm" xsi:type=& quot;PQ" value="< 3000" /> <referenceRange& gt; <observationRange> <text>NOT DEFINED</text& gt; </observationRange> </referenceRange> </observation> </component> <component> < observation moodCode="EVN" classCode="OBS"> < templateId root="2.16.840.1.077510.10.20.22.4.2" /> < id nullFlavor="NA" /> <code codeSystem="local&quot ; code="SEGFL" displayName="FLUID SEG" /> < statusCode code="completed" /> <effectiveTime value=& quot;[id number]" /> <value unit="%" xsi: type="PQ" value="9" /> <referenceRange> <observationRange> <text>NOT DEFINED</text > </observationRange> </referenceRange> </observation> </component> <component> & lt;observation moodCode="EVN" classCode="OBS"> & lt;templateId root="[id number]" /> &lt ;id nullFlavor="NA" /> <code codeSystem="local& quot; code="TUBEFL" displayName="FLUID TUBE #" /> <statusCode code="completed" /> <effectiveTime value="[id number]" /> <value unit="" xsi: type="PQ" value="SYRINGE" /> <referenceRange& gt; <observationRange> <text /> & lt;/observationRange> </referenceRange> </observation > </component> <component> <observation moodCode="EVN" classCode="OBS"> <templateId root="2.16.840.1.105018.10.20.22.4.2" /> <id nullFlavor ="NA" /> <code codeSystem="local" code=" VOLFL" displayName="FLUID VOLUME" /> <statusCode code="completed" /> <effectiveTime value=" 193613213565" /> <value unit="mL" xsi:type=" PQ" value="57.0" /> <referenceRange> & lt;observationRange> <text /> </observationRange&gt ; </referenceRange> </observation> </ component> <component> <observation moodCode="EVN& quot; classCode="OBS"> <templateId root=" 2.16.840.1.683882.10.20.22.4.2" /> <id nullFlavor="NA" /&gt ; <code codeSystem="local" code="WBCFL" displayName="FLUID WBC" /> <statusCode code=" completed" /> <effectiveTime value="331104470513" /> <value unit="#/cumm" xsi:type="PQ" value=& quot;245" /> <referenceRange> <observationRange&gt ; <text>NOT DEFINED</text> </ observationRange> </referenceRange> </observation&gt ; </component> </organizer> </entry> <entry> <organizer moodCode="EVN" classCode="BATTERY"> <templateId root="2.16.840.1.421800.10.20.22.4.1" /> < id nullFlavor="NA" /> <code codeSystem="local" code="PROTPT" displayName="PERITONEAL FLUID PROTEIN" /> <statusCode code="completed" /> <component> <observation moodCode="EVN" classCode="OBS"> <templateId root="2.16.840.1.657698.10.20.22.4.2" /> &lt ;id nullFlavor="NA" /> <code codeSystem="local& quot; code="PROTPT" displayName="PERITONEAL FLUID PROTEIN" / > <statusCode code="completed" /> < effectiveTime value="274912508272" /> <value unit=&quot ;gm/dL" xsi:type="PQ" value="< 2.0" /> <referenceRange> <observationRange> < text>NOT DEFINED</text> </observationRange> & lt;/referenceRange> </observation> </component> & lt;/organizer> </entry> <entry> <organizer moodCode=&quot ;EVN" classCode="BATTERY"> <templateId root=" 2.16.840.1.001506.10.20.22.4.1" /> <id nullFlavor="NA&quot ; /> <code codeSystem="local" code="ALBPT" displayName="PERITONEAL FLUID ALBUMIN" /> <statusCode code= "completed" /> <component> <observation moodCode="EVN" classCode="OBS"> <templateId root="2.16.840.1.155262.10.20.22.4.2" /> <id nullFlavor ="NA" /> <code codeSystem="local" code=" ALBPT" displayName="PERITONEAL FLUID ALBUMIN" /> < statusCode code="completed" /> <effectiveTime value=& quot;449978716509" /> <value unit="gm/dL" xsi:type ="PQ" value="< 0.6" /> <referenceRange > <observationRange> <text>NOT DEFINED&lt ;/text> </observationRange> </referenceRange&gt ; </observation> </component> </organizer> < /entry> <entry> <organizer moodCode="EVN" classCode=& quot;BATTERY"> <templateId root=" 2.16.840.1.832733.10.20.22.4.1" /> <id nullFlavor="NA&quot ; /> <code codeSystem="local" code="GRAMM" displayName ="GRAM STAIN" /> <statusCode code="completed" /& gt; <component> <observationmoodCode="EVN" classCode="OBS"> <templateId root=" 2.16.840.1.312448.10.20.22.4.2" /> <id nullFlavor="NA& quot; /> <code codeSystem="local" code="MB" displayName="Microbiology" /> <statusCode code=" completed" /> <effectiveTime value="263775739367" /> <value xsi:type="ST" value="<pre><b&gt ;GRAM STAIN - MISCELLANEOUS CULTURE</b> See BelowGRAM STAIN(F) Claudia Date/Time: 03/13/2014 : Johann Date/Time: 10:27SOURCE: [facility] DESC: ABDOMINALGRAM STAINMODERATE NEUTROPHILSNO ORGANISMS [facility] [id number] [place], [place] [id number] BelowMISCELLANEOUS CULTURE(F) Claudia Date/Time: 03/13/2014 : Johann Date/Time: 03/16/2014 10:27SOURCE: [facility] DESC: [id number] GROWTH [facility] [id number] [place] [address]</pre>" /> <referenceRange&gt ; <observationRange> <text /> &lt ;/observationRange> </referenceRange> </observation& gt; </component> </organizer> </entry> <entry&gt ; <organizer moodCode="EVN" classCode="BATTERY"> <templateId root="2.16.840.1.205656.10.20.22.4.1" /> & lt;id nullFlavor="NA" /> <code codeSystem="local&quot ; code="METABC" displayName="METABOLIC PANEL, COMPREHN" /&gt ; <statusCode code="completed" /> <component> <observation moodCode="EVN" classCode="OBS"> <templateId root="2.16.840.1.754247.10..22.4.2" /> <id nullFlavor="NA" /> <code codeSystem=" local" code="K" displayName="POTASSIUM" /> <statusCode code="completed" /> <effectiveTime value ="197775563122" /> <value unit="mmol/L" xsi: type="PQ" value="4.7" /> <referenceRange> <observationRange> <text>3.5-5.3</text> </observationRange> </referenceRange> < /observation> </component> <component> < observation moodCode="EVN" classCode="OBS"> < templateId root="2.16.840.1.088801.10.20.22.4.2" /> < id nullFlavor="NA" /> <code codeSystem="local&quot ; code="eGFR" displayName="EST GFR (MDRD)" /> & lt;statusCode code="completed" /> <effectiveTime value=" 122938608820" /> <value unit="mL/min" xsi:type=& quot;PQ" value="> 60" /> <referenceRange&gt ;<observationRange> <text>> 59</text> </observationRange> </referenceRange> </ observation> </component><component> <observation moodCode="EVN" classCode="OBS"> <templateId root=& quot;2.16.840.1.323571.10.20.22.4.2" /> <id nullFlavor=&quot ;NA" /> <code codeSystem="local" code="GAP& quot; displayName="ANION GAP" /> <statusCode code=&quot ;completed" /> <effectiveTime value="175948211123&quot ; /> <value unit="mmol/L" xsi:type="PQ" value ="8" /> <referenceRange> < observationRange> <text>5-15</text> </ observationRange> </referenceRange> </observation&gt ; </component> <component> <observation moodCode ="EVN" classCode="OBS"> <templateId root=& quot;2.16.840.1.024214.10..22.4.2" /> <id nullFlavor=&quot ;NA" /> <code codeSystem="local" code="eCrCl" displayName="EST CrCl (CG)" /> <statusCode code=" completed" /> <effectiveTime value="791537470637" /> <value unit="mL/min" xsi:type="PQ" value=& quot;50" /> <interpretationCode codeSystem="local&quot ; code="*" /> <referenceRange> < observationRange> <text>> 59</text> </observationRange> </referenceRange> </ observation> </component> <component> < observation moodCode="EVN" classCode="OBS"> < templateId root="2.16.840.1.633422.10..22.4.2" /> < id nullFlavor="NA" /> <code codeSystem="local&quot ; code="GLU" displayName="GLUCOSE" /> < statusCode code="completed" /> <effectiveTime value=& quot;293079771211" /> <value unit="mg/dL" xsi:type="PQ " value="126" /> <interpretationCode codeSystem=& quot;local" code="*" /> <referenceRange> <observationRange> <text>70-99</text> </observationRange> </referenceRange> </ observation> </component> <component> < observation moodCode="EVN" classCode="OBS"> < templateId root="2.16.840.1.503061.10.20.22.4.2" /> < id nullFlavor="NA" /> <code codeSystem="local&quot ; code="CA" displayName="CALCIUM" /> < statusCode code="completed" /> <effectiveTime value=& quot;287037809860" /> <value unit="mg/dL" xsi:type ="PQ" value="7.6" /> <interpretationCode codeSystem="local" code="*" /> < referenceRange> <observationRange> <text>8.5- 10.1</text> </observationRange> </ referenceRange> </observation> </component> < component> <observation moodCode="EVN" classCode=" OBS"> <templateId root="2.16.840.1.483163.10..22.4.2& quot; /> <id nullFlavor="NA" /> <code codeSystem="local" code="BUN" displayName="BLOOD UREA NITROGEN" /> <statusCode code="completed" /> <effectiveTime value="278244597981" /> < value unit="mg/dL" xsi:type="PQ" value="7" /> <referenceRange> <observationRange> <text>7-20</text> </observationRange> & lt;/referenceRange> </observation> </component> < component> <observation moodCode="EVN" classCode=" OBS"> <templateId root="2.16.840.1.913620.10.20.22.4.2& quot; /> <id nullFlavor="NA" /> <code codeSystem="local" code="CREAT" displayName="CREATININE " /> <statusCode code="completed" /> & lt;effectiveTime value="280288836743" /> <value unit=& quot;mg/dL" xsi:type="PQ" value="0.8" /> < referenceRange> <observationRange> <text> 0.6-1.0</text> </observationRange> </ referenceRange> </observation> </component> < component> <observation moodCode="EVN" classCode=" OBS"> <templateId root="2.16.840.1.991574.10.20.22.4.2& quot; /> <id nullFlavor="NA" /> <code codeSystem="local" code="NA" displayName="SODIUM" /> <statusCode code="completed" /> < effectiveTime value="078044201494" /> <value unit=&quot ;mmol/L" xsi:type="PQ" value="136" /> < referenceRange> <observationRange> <text> 135-148</text> </observationRange> </ referenceRange> </observation> </component> < component> <observation moodCode="EVN" classCode=" OBS"> <templateId root="2.16.840.1.722887.10..22.4.2& quot; /> <id nullFlavor="NA" /> <code codeSystem="local" code="CL" displayName="CHLORIDE&quot ; /> <statusCode code="completed" /> < effectiveTime value="106884827446" /> <value unit=&quot ;mmol/L" xsi:type="PQ" value="106" /> < referenceRange> <observationRange> <text> 98-110</text> </observationRange> </referenceRange& gt; </observation> </component> <component> <observation moodCode="EVN" classCode="OBS"> <templateId root="2.16.840.1.449363.10..22.4.2" /> <id nullFlavor="NA" /> <code codeSystem=&quot ;local" code="AST" displayName="AST/SGOT" /> <statusCode code="completed" /> <effectiveTime value="248243354704" /> <value unit="Units/L&quot ; xsi:type="PQ" value="44" /> < interpretationCode codeSystem="local" code="*" /> <referenceRange> <observationRange> < text>10-37</text> </observationRange> </ referenceRange> </observation> </component> < component> <observation moodCode="EVN" classCode=" OBS"> <templateId root="2.16.840.1.423235.10.20.22.4.2& quot; /> <id nullFlavor="NA" /> <code codeSystem="local" code="ALT" displayName="ALT/SGPT& quot; /> <statusCode code="completed" /> & lt;effectiveTime value="763966588857" /><value unit="Units/ L" xsi:type="PQ" value="33" /> < referenceRange> <observationRange> <text> < 66</text> </observationRange> </ referenceRange> </observation> </component> < component> <observation moodCode="EVN" classCode=" OBS"> <templateId root="2.16.840.1.638170.10.20.22.4.2& quot; /> <id nullFlavor="NA" /> <code codeSystem="local" code="CO2" displayName="CARBON DIOXIDE" /> <statusCode code="completed" /> <effectiveTime value="206325751113" /> < value unit="mmol/L" xsi:type="PQ" value="22" /&gt ; <referenceRange> <observationRange> <text>21-32</text> </observationRange> </referenceRange> </observation> </component> <component> <observation moodCode="EVN" classCode= "OBS"> <templateId root=" 2.16.840.1.766862.10.20.22.4.2" /> <id nullFlavor="NA& quot; /> <code codeSystem="local" code="TP" displayName="TOTAL PROTEIN" /> <statusCode code=" completed" /> <effectiveTime value="144597787130" /> <value unit="gm/dL"xsi:type="PQ" value=" 5.7" /> <interpretationCode codeSystem="local" code="*" /> <referenceRange> < observationRange> <text>6.4-8.2</text> & lt;/observationRange> </referenceRange> </ observation> </component> <component><observation moodCode="EVN" classCode="OBS"> <templateId root="2.16.840.1.259933.10.20.22.4.2" /> <id nullFlavor ="NA" /> <code codeSystem="local" code="ALB& quot; displayName="ALBUMIN" /> <statusCode code=" completed" /> <effectiveTime value="011450071877" /> <value unit="gm/dL" xsi:type="PQ" value=& quot;2.5" /> <interpretationCode codeSystem="local&quot ; code="*" /> <referenceRange> < observationRange> <text>3.4-5.0</text> & lt;/observationRange> </referenceRange> </ observation> </component> <component> < observation moodCode="EVN" classCode="OBS"> < templateId root="2.16.840.1.777652.10.20.22.4.2" /> < id nullFlavor="NA" /> <code codeSystem="local&quot ; code="BILTOT" displayName="BILI TOTAL" /> < statusCode code="completed" /> <effectiveTime value=& quot;037379446168" /> <value unit="mg/dL" xsi:type ="PQ" value="0.8" /> <referenceRange> <observationRange> <text>0.0-1.0</text> </observationRange> </referenceRange> </ observation> </component> <component> < observation moodCode="EVN" classCode="OBS"> < templateId root="2.16.840.1.829457.10.20.22.4.2" /><id nullFlavor="NA" /> <code codeSystem="local" code="ALKP" displayName="ALKALINE PHOSPHATASE TOTAL" /> <statusCode code="completed" /> < effectiveTime value="347799775207" /> <value unit=&quot ;IU/L" xsi:type="PQ" value="149" /> < interpretationCode codeSystem="local" code="*" /> <referenceRange> <observationRange> <text>45 -117</text> </observationRange> </ referenceRange> </observation> </component> </ organizer> </entry> <entry> <organizer moodCode="EVN " classCode="BATTERY"> <templateId root=" 2.16.840.1.838420.10.20.22.4.1" /> <id nullFlavor="NA&quot ; /> <code codeSystem="local" code="CBCD" displayName="CBC W/DIFF" /> <statusCode code=" completed" /><component> <observation moodCode="EVN " classCode="OBS"> <templateId root=" 2.16.840.1.797487.10.20.22.4.2" /> <id nullFlavor="NA& quot; /> <code codeSystem="local" code="EO#" displayName="EOSINOPHIL #" /> <statusCode code=" completed" /> <effectiveTime value="351963873814" /> <value unit="k/cumm" xsi:type="PQ" value=& quot;0.3" /> <referenceRange> < observationRange> <text>0.1-0.5</text> & lt;/observationRange> </referenceRange> </observation> </component> <component> <observation moodCode=& quot;EVN" classCode="OBS"> <templateId root=" 2.16.840.1.126034.10.20.22.4.2" /> <id nullFlavor="NA& quot; /> <code codeSystem="local" code="EO&#37 ;" displayName="EOSINOPHIL %" /> < statusCode code="completed" /> <effectiveTime value=& quot;200381788902" /> <value unit="%" xsi: type="PQ" value="4" /> <referenceRange> <observationRange> <text>2-4</text> </observationRange> </referenceRange> </ observation> </component> <component> <observation moodCode="EVN" classCode="OBS"> <templateId root="2.16.840.1.597558.10.20.22.4.2" /> <id nullFlavor ="NA" /> <code codeSystem="local" code="GR#& quot; displayName="GRANULOCYTE #" /> <statusCode code=& quot;completed" /> <effectiveTime value="263071819266& quot; /> <value unit="k/cumm" xsi:type="PQ" value="6.4" /> <referenceRange> < observationRange> <text>2.0-9.0</text> </ observationRange> </referenceRange> </observation&gt ; </component> <component> <observation moodCode ="EVN" classCode="OBS"> <templateId root=& quot;2.16.840.1.917255.10.20.22.4.2" /> <id nullFlavor=&quot ;NA" /> <code codeSystem="local" code="LY#& quot; displayName="LYMPHOCYTE #" /> <statusCode code=& quot;completed" /> <effectiveTime value="000330126240& quot; /> <value unit="k/cumm" xsi:type="PQ" value="0.7" /> <interpretationCode codeSystem=" local" code="*" /> <referenceRange> <observationRange> <text>1.0-4.0</text> </observationRange> </referenceRange> </ observation> </component> <component> < observation moodCode="EVN" classCode="OBS"> < templateId root="2.16.840.1.370372.10.20.22.4.2" /> <id nullFlavor="NA" /> <code codeSystem="local" code="LY%" displayName="LYMPHOCYTE %" /> <statusCode code="completed" /> < effectiveTime value="577762774869" /> <value unit="&# 37;" xsi:type="PQ" value="9" /> < interpretationCode codeSystem="local" code="*" /> <referenceRange> <observationRange> < text>20-30</text> </observationRange> </ referenceRange> </observation> </component> < component> <observation moodCode="EVN" classCode=" OBS"> <templateId root="2.16.840.1.329027.10.20.22.4.2& quot; /> <id nullFlavor="NA" /> <code codeSystem="local" code="MCH" displayName="MEAN CELL HGB" /> <statusCode code="completed" /> & lt;effectiveTime value="781809754556" /> <value unit=& quot;pg" xsi:type="PQ" value="30.2" /> < referenceRange> <observationRange> <text> 27.0-33.0</text> </observationRange> </ referenceRange> </observation> </component> < component> <observation moodCode="EVN" classCode=" OBS"> <templateId root="2.16.840.1.565073.10.20.22.4.2& quot; /> <id nullFlavor="NA" /> <code codeSystem="local" code="MCHC" displayName="MEAN CELL HGB CONCENTRATION" /> <statusCode code="completed&quot ; /> <effectiveTime value="685166550223" /> < value unit="g/dL" xsi:type="PQ" value="28.9" /&gt ; <interpretationCode codeSystem="local" code="*&quot ; /> <referenceRange> <observationRange> <text>32.0-37.0</text> </observationRange&gt ; </referenceRange> </observation> </ component> <component> <observation moodCode="EVN" classCode="OBS"> <templateId root=" 2.16.840.1.261281.10.20.22.4.2" /> <id nullFlavor="NA& quot; /> <code codeSystem="local" code="MCV" displayName="MEAN CELL VOLUME" /> <statusCode code=& quot;completed" /> <effectiveTime value="850055917609& quot; /> <value unit="fl" xsi:type="PQ" value ="104.5" /> <interpretationCode codeSystem="local& quot; code="*" /> <referenceRange> < observationRange> <text>80.0-100.0</text> </observationRange> </referenceRange> </ observation> </component> <component> < observation moodCode="EVN" classCode="OBS"> < templateId root="2.16.840.1.772078.10.20.22.4.2" /> < id nullFlavor="NA" /> <code codeSystem="local&quot ; code="MO#" displayName="MONOCYTE #" /> < statusCodecode="completed" /> <effectiveTime value=& quot;329585402520" /> <value unit="k/cumm" xsi:type=& quot;PQ" value="0.5" /> <referenceRange> <observationRange> <text>0.1-1.0</text> </observationRange> </referenceRange> </ observation> </component> <component> < observation moodCode="EVN" classCode="OBS"> < templateId root="2.16.840.1.587589.10.20.22.4.2" /> < id nullFlavor="NA" /> <code codeSystem="local&quot ; code="MO%" displayName="MONOCYTE %" /> <statusCode code="completed" /> < effectiveTime value="577721229572" /> <value unit="&#37 ;" xsi:type="PQ" value="6" /> < referenceRange> <observationRange> <text> 4-6</text> </observationRange> </referenceRange&gt ; </observation> </component> <component> <observation moodCode="EVN" classCode="OBS"> <templateId root="2.16.840.1.800372.10.20.22.4.2" /> &lt ;id nullFlavor="NA" /> <code codeSystem="local& quot; code="NRBC" displayName="NUCLEATED RED BLOOD CELL" /& gt; <statusCode code="completed" /> < effectiveTime value="897916801464" /> <value unit=&quot ;/100WBC" xsi:type="PQ" value="1" /> < interpretationCode codeSystem="local" code="*" /> <referenceRange> <observationRange> <text /& gt; </observationRange> </referenceRange> </ observation> </component> <component> < observation moodCode="EVN" classCode="OBS"> < templateId root="2.16.840.1.563653.10..22.4.2" /> < id nullFlavor="NA" /> <code codeSystem="local&quot ; code="POLC" displayName="POLYCHROMASIA" /> &lt ;statusCode code="completed" /> <effectiveTime value=& quot;830845796445" /> <value unit="" xsi:type=& quot;PQ" value="NOTED" /> <referenceRange> <observationRange> <text /> </ observationRange> </referenceRange> </observation&gt ; </component> <component> <observation moodCode ="EVN" classCode="OBS"> <templateId root=& quot;2.16.840.1.665106.10..22.4.2" /> <id nullFlavor=&quot ;NA" /> <code codeSystem="local" code="RBC& quot; displayName="RED BLOOD CELL" /> <statusCode code= "completed" /> <effectiveTime value="938130551539& quot; /> <value unit="m/cumm" xsi:type="PQ" value ="2.65" /> <interpretationCode codeSystem="local" code ="*" /> <referenceRange> < observationRange> <text>4.00-6.00</text> </ observationRange> </referenceRange> </observation&gt ; </component> <component> <observation moodCode ="EVN" classCode="OBS"> <templateId root=& quot;2.16.840.1.236078.10.20.22.4.2" /> <id nullFlavor=&quot ;NA" /> <code codeSystem="local" code="RDW& quot; displayName="RED CELL DISTRIBUTION WIDTH" /> < statusCode code="completed" /> <effectiveTime value=& quot;623724383544" /> <value unit="%" xsi: type="PQ" value="23.4" /> < interpretationCode codeSystem="local" code="*" /> <referenceRange> <observationRange> <text& gt;11.0-15.6</text> </observationRange> </ referenceRange> </observation> </component> < component> <observation moodCode="EVN" classCode=" OBS"> <templateId root="2.16.840.1.516875.10..22.4.2& quot; /> <id nullFlavor="NA" /> <code codeSystem="local" code="SPH" displayName="SPHEROCYTES& quot; /> <statusCode code="completed" />< effectiveTime value="300142677975" /> <value unit=&quot ;" xsi:type="PQ" value="NOTED" /> < referenceRange> <observationRange> <text /& gt; </observationRange> </referenceRange> </observation> </component> <component> &lt ;observation moodCode="EVN" classCode="OBS"> &lt ;templateId root="2.16.840.1.147890.10..22.4.2" /> < id nullFlavor="NA" /> <code codeSystem="local&quot ; code="TEAR" displayName="TEAR DROP CELLS" /> &lt ;statusCode code="completed" /> <effectiveTime value=& quot;777816235317" /> <value unit="" xsi:type=& quot;PQ" value="NOTED" /> <referenceRange> <observationRange> <text /> </ observationRange> </referenceRange> </observation&gt ; </component> <component> <observation moodCode ="EVN" classCode="OBS"> <templateId root=& quot;2.16.840.1.298425.10.20.22.4.2" /> <id nullFlavor=&quot ;NA" /> <code codeSystem="local" code="WBC& quot; displayName="WHITE BLOOD CELL" /> <statusCode code="completed" /> <effectiveTime value=" 390922321298" /> <value unit="k/cumm" xsi:type=& quot;PQ" value="8.2" /> <referenceRange> <observationRange> <text>5.0-10.0</text> & lt;/observationRange> </referenceRange> </ observation> </component> <component> < observation moodCode="EVN" classCode="OBS"> < templateId root="2.16.840.1.956819.10.20.22.4.2" /> < id nullFlavor="NA" /> <code codeSystem="local&quot ; code="HGBT" displayName="HEMOGLOBIN" /> < statusCode code="completed" /> <effectiveTime value=& quot;267616537729" /> <value unit="gm/dL" xsi:type ="PQ" value="8.0" /> <interpretationCode codeSystem="local" code="*" /> < referenceRange> <observationRange> <text> 12.0-16.0</text> </observationRange> </ referenceRange> </observation> </component> < component> <observation moodCode="EVN" classCode=" OBS"> <templateId root="2.16.840.1.672670.10.20.22.4.2& quot; /> <id nullFlavor="NA" /> <code codeSystem="local" code="HCTT" displayName="HEMATOCRIT& quot; /> <statusCode code="completed" /> & lt;effectiveTime value="310710226319" /> <value unit=& quot;%" xsi:type="PQ" value="27.7" /> <interpretationCode codeSystem="local" code="*" /&gt ; <referenceRange> <observationRange> <text>37.0-47.0</text> </observationRange> </referenceRange> </observation> </component&gt ; <component> <observation moodCode="EVN" classCode="OBS"> <templateId root=" 2.16.840.1.669024.10.20.22.4.2" /> <id nullFlavor="NA& quot; /> <code codeSystem="local" code="PLT" displayName="PLATELET COUNT" /> <statusCode code=" completed" /> <effectiveTime value="068017872320" /> <value unit="k/cumm" xsi:type="PQ" value=& quot;145" /> <interpretationCode codeSystem="local&quot ; code="*" /> <referenceRange> < observationRange> <text>150-400</text> &lt ;/observationRange> </referenceRange> </observation& gt; </component> </organizer> </entry> <entry> <organizer moodCode="EVN" classCode="BATTERY"> & lt;templateId root="2.16.840.1.664692.10.20.22.4.1" /> <id nullFlavor="NA" /> <code codeSystem="local" code= "DIFFM" displayName="MANUAL DIFF(R)" /> < statusCode code="completed" /> <component> < observation moodCode="EVN" classCode="OBS"> < templateId root="2.16.840.1.270777.10.20.22.4.2" /> < id nullFlavor="NA" /> <code codeSystem="local&quot ; code="BAND%" displayName="BAND %" /> <statusCode code="completed" /> < effectiveTime value="238501798584" /> <value unit="&# 37;" xsi:type="PQ" value="1" /> < referenceRange> <observationRange> <text> 0-10</text> </observationRange> </ referenceRange> </observation> </component> < component> <observation moodCode="EVN" classCode=" OBS"> <templateId root="2.16.840.1.295059.10.20.22.4.2& quot; /> <id nullFlavor="NA" /> <code codeSystem="local" code="MANDIFF" displayName=" DIFFERENTIAL" /> <statusCode code="completed" /&gt ; <effectiveTime value="788339113326" /> < value unit="" xsi:type="PQ" value="MANUAL" /> <referenceRange> <observationRange> <text /> </observationRange> </ referenceRange> </observation> </component> < component> <observation moodCode="EVN" classCode=" OBS"> <templateId root="2.16.840.1.505979.10.20.22.4.2& quot; /> <id nullFlavor="NA" /> <code codeSystem="local" code="META%" displayName=" METAMYELOCYTE %" /> <statusCode code="completed " /> <effectiveTime value="[id number]" /> <value unit="%" xsi:type="PQ" value="3& quot; /> <interpretationCode codeSystem="local" code=& quot;*" /> <referenceRange> < observationRange> <text /> </ observationRange> </referenceRange> </observation&gt ; </component> <component> <observation moodCode ="EVN" classCode="OBS"> <templateId root=& quot;[id number]" /> <id nullFlavor=&quot ;NA" /> <code codeSystem="local" code="SEG& amp;#37;" displayName="SEGMENTED NEUTROPHIL %" /> <statusCode code="completed" /> < effectiveTime value="344178200801" /> <value unit=&quot ;%" xsi:type="PQ" value="77" /> &lt ;interpretationCode codeSystem="local" code="*" /> <referenceRange> <observationRange> < text>50-70</text> </observationRange> </ referenceRange> </observation> </component> </ organizer> </entry> <entry> <organizer moodCode="EVN " classCode="BATTERY"> <templateId root=" 2.16.840.1.136862.10.20.22.4.1" /> <id nullFlavor="NA&quot ; /><code codeSystem="local" code="GLUMON" displayName ="GLUCOSE (POC)" /> <statusCode code="completed" /> <component> <observation moodCode="EVN" classCode="OBS"> <templateId root=" 2.16.840.1.960027.10.20.22.4.2" /> <id nullFlavor="NA& quot; /> <codecodeSystem="local" code="GLUMON&quot ; displayName="GLUCOSE (POC)" /> <statusCode code=" completed" /> <effectiveTime value="199455131799" /> <value unit="mg/dL" xsi:type="PQ" value=& quot;159" /> <interpretationCode codeSystem="local&quot ; code="*" /> <referenceRange> < observationRange> <text>70-99</text> < /observationRange> </referenceRange> </observation& gt; </component> </organizer> </entry> <entry&gt ; <organizer moodCode="EVN" classCode="BATTERY"> <templateId root="2.16.840.1.738225.10.20.22.4.1" /> & lt;id nullFlavor="NA" /> <code codeSystem="local&quot ; code="GLUMON" displayName="GLUCOSE (POC)" /> < statusCodecode="completed" /> <component> < observation moodCode="EVN" classCode="OBS"> < templateId root="2.16.840.1.145445.10.20.22.4.2" /> < id nullFlavor="NA" /> <code codeSystem="local&quot ; code="GLUMON" displayName="GLUCOSE (POC)" /> & lt;statusCode code="completed" /> <effectiveTime value= "492857779296" /><value unit="mg/dL" xsi:type="PQ " value="214" /> <interpretationCode codeSystem=& quot;local" code="*" /> <referenceRange> <observationRange> <text>70-99</text> </observationRange> </referenceRange> </ observation> </component> </organizer> </entry> & lt;entry> <organizer moodCode="EVN" classCode="BATTERY& quot;> <templateId root="2.16.840.1.309834.10.20.22.4.1" /& gt; <id nullFlavor="NA" /> <code codeSystem=" local" code="GLUMON" displayName="GLUCOSE (POC)" /> <statusCode code="completed" /> <component> <observation moodCode="EVN" classCode="OBS"> <templateId root="2.16.840.1.478249.10.20.22.4.2" /> <id nullFlavor="NA" /> <code codeSystem=" local" code="GLUMON" displayName="GLUCOSE (POC)" /> <statusCode code="completed" /> < effectiveTime value="645186758710" /> <value unit=&quot ;mg/dL" xsi:type="PQ" value="143" /> < interpretationCode codeSystem="local" code="*" /> <referenceRange> <observationRange> < text>70-99</text> </observationRange> </ referenceRange> </observation> </component> </ organizer> </entry> <entry> <organizer moodCode="EVN " classCode="BATTERY"> <templateId root=" 2.16.840.1.843152.10.20.22.4.1" /> <id nullFlavor="NA&quot ; /> <code codeSystem="local" code="GLUMON" displayName="GLUCOSE (POC)" /> <statusCode code=" completed" /> <component> <observation moodCode=& quot;EVN" classCode="OBS"> <templateId root=" 2.16.840.1.875192.10.20.22.4.2" /> <id nullFlavor="NA& quot; /> <code codeSystem="local" code="GLUMON& quot; displayName="GLUCOSE (POC)" /> <statusCode code=& quot;completed" /> <effectiveTime value="490724707398& quot; /> <value unit="mg/dL" xsi:type="PQ" value="174" /> <interpretationCode codeSystem=" local" code="*" /> <referenceRange> <observationRange><text>70-99</text> </ observationRange> </referenceRange> </observation&gt ; </component> </organizer> </entry> <entry> <organizer moodCode="EVN" classCode="BATTERY"> <templateId root="2.16.840.1.194973.10.20.22.4.1" /> < id nullFlavor="NA" /> <code codeSystem="local" code=& quot;CBCD" displayName="CBC W/DIFF" /> <statusCode code="completed" /> <component> <observation moodCode="EVN" classCode="OBS"> <templateId root="2.16.840.1.609495.10.20.22.4.2" /> <id nullFlavor ="NA" /> <code codeSystem="local" code=" BA#" displayName="BASOPHIL #" /> <statusCode code= "completed" /> <effectiveTime value="316984315304& quot;/> <value unit="k/cumm" xsi:type="PQ" value="0.1" /> <referenceRange> < observationRange> <text>0.0-0.2</text> & lt;/observationRange> </referenceRange> </ observation> </component> <component> < observation moodCode="EVN" classCode="OBS"> < templateId root="2.16.840.1.908608.10.20.22.4.2" /> < id nullFlavor="NA" /> <code codeSystem="local&quot ; code="BA%" displayName="BASOPHIL %" /> <statusCode code="completed" /> < effectiveTime value="617725178711" /> <value unit=&quot ;%" xsi:type="PQ" value="1" /> < referenceRange> <observationRange> <text> 0-1</text> </observationRange> </ referenceRange> </observation> </component> < component> <observation moodCode="EVN" classCode=" OBS"> <templateId root="2.16.840.1.804762.10.20.22.4.2& quot; /> <id nullFlavor="NA" /> <code codeSystem="local" code="EO#" displayName="EOSINOPHIL # " /> <statusCode code="completed" /> & lt;effectiveTime value="487545885378" /> <valueunit=& quot;k/cumm" xsi:type="PQ" value="0.3" /> & lt;referenceRange> <observationRange> <text& gt;0.1-0.5</text> </observationRange> </ referenceRange> </observation> </component> < component> <observation moodCode="EVN" classCode=" OBS"> <templateId root="2.16.840.1.893121.10.20.22.4.2& quot; /> <id nullFlavor="NA" /> <code codeSystem="local" code="EO%" displayName=" EOSINOPHIL %" /> <statusCode code="completed& quot; /> <effectiveTime value="502925771597" /> <value unit="%" xsi:type="PQ" value="4 " /> <referenceRange> <observationRange&gt ; <text>2-4</text> </observationRange&gt ; </referenceRange> </observation> </ component> <component> <observation moodCode="EVN& quot; classCode="OBS"> <templateId root=" 2.16.840.1.054910.10.20.22.4.2" /> <id nullFlavor="NA& quot; /> <code codeSystem="local" code="GR#" displayName="GRANULOCYTE #" /> <statusCode code=" completed" /> <effectiveTime value="056478430131" /&gt ; <value unit="k/cumm" xsi:type="PQ" value=&quot ;5.5" /> <referenceRange> <observationRange > <text>2.0-9.0</text> </ observationRange> </referenceRange> </observation&gt ; </component> <component> <observation moodCode ="EVN" classCode="OBS"> <templateId root=& quot;2.16.840.1.750880.10.20.22.4.2" /> <id nullFlavor=&quot ;NA" /> <code codeSystem="local" code="GR&amp ;#37;" displayName="GRANULOCYTE %" /> < statusCode code="completed" /> <effectiveTime value=" 106743584965" /> <value unit="%" xsi:type= "PQ" value="74" /> <referenceRange> <observationRange> <text>50-75</text> </observationRange> </referenceRange> </ observation> </component> <component> < observation moodCode="EVN" classCode="OBS"> < templateId root="2.16.840.1.029908.10.20.22.4.2" /> < id nullFlavor="NA" /> <code codeSystem="local&quot ; code="LY#" displayName="LYMPHOCYTE #" /> < statusCode code="completed" /> <effectiveTime value=& quot;026320483446" /> <value unit="k/cumm" xsi: type="PQ" value="0.6" /> <interpretationCode codeSystem="local" code="*" /> < referenceRange> <observationRange><text>1.0-4.0</ text> </observationRange> </referenceRange> </observation> </component> <component> <observation moodCode="EVN" classCode="OBS"> <templateId root="2.16.840.1.170064.10.20.22.4.2" /> <id nullFlavor="NA" /> <code codeSystem=" local" code="LY%" displayName="LYMPHOCYTE %& quot; /> <statusCode code="completed" /> & lt;effectiveTime value="578153212686" /> <value unit=& quot;%" xsi:type="PQ" value="9" /> <interpretationCode codeSystem="local" code="*" /> <referenceRange> <observationRange> & lt;text>20-30</text> </observationRange> < /referenceRange> </observation> </component> &lt ;component> <observation moodCode="EVN" classCode=" OBS"> <templateId root="2.16.840.1.511301.10.20.22.4.2& quot; /> <id nullFlavor="NA" /> <code codeSystem="local" code="MCH" displayName="MEAN CELL HGB" /> <statusCode code="completed" /> <effectiveTime value="378480689780" /><value unit="pg " xsi:type="PQ" value="29.7" /> < referenceRange> <observationRange> <text> 27.0-33.0</text> </observationRange> </ referenceRange> </observation> </component> < component> <observation moodCode="EVN" classCode=" OBS"> <templateId root="2.16.840.1.057585.10.20.22.4.2& quot; /> <id nullFlavor="NA" /> <code codeSystem="local" code="MCHC" displayName="MEAN CELL HGB CONCENTRATION" /> <statusCode code="completed&quot ; /> <effectiveTime value="304194775103" /> <value unit="g/dL" xsi:type="PQ" value="29.0&quot ; /> <interpretationCode codeSystem="local" code=" *" /> <referenceRange> <observationRange> <text>32.0-37.0</text> </observationRange > </referenceRange> </observation> </ component> <component> <observation moodCode="EVN& quot; classCode="OBS"> <templateId root=" 2.16.840.1.392841.10.20.22.4.2" /> <id nullFlavor="NA& quot; /> <code codeSystem="local" code="MCV" displayName="MEAN CELL VOLUME" /> <statusCode code=& quot;completed" /> <effectiveTime value="975512076805&quot ; /> <value unit="fl" xsi:type="PQ" value=& quot;102.4" /> <interpretationCode codeSystem="local& quot; code="*" /> <referenceRange> < observationRange> <text>80.0-100.0</text> </observationRange> </referenceRange> </ observation> </component> <component> < observation moodCode="EVN" classCode="OBS"> < templateId root="2.16.840.1.755515.10.20.22.4.2" /> < id nullFlavor="NA" /> <code codeSystem="local" code="MO#" displayName="MONOCYTE #" /> < statusCode code="completed" /> <effectiveTime value=& quot;986680602576" /> <value unit="k/cumm" xsi: type="PQ" value="0.9" /> <referenceRange> <observationRange> <text>0.1-1.0</text> </observationRange> </referenceRange> </ observation> </component> <component> < observationmoodCode="EVN" classCode="OBS"> < templateId root="2.16.840.1.750545.10.20.22.4.2" /> < id nullFlavor="NA" /> <code codeSystem="local&quot ; code="MO%" displayName="MONOCYTE %" /> <statusCode code="completed" /> < effectiveTime value="629449041363" /> <value unit=&quot ;%" xsi:type="PQ" value="12" /> &lt ;interpretationCode codeSystem="local" code="*" /> <referenceRange> <observationRange> < text>4-6</text> </observationRange> </ referenceRange> </observation> </component> < component> <observation moodCode="EVN" classCode=" OBS"> <templateId root="2.16.840.1.271976.10.20.22.4.2& quot; /> <id nullFlavor="NA" /> <code codeSystem="local" code="POLC" displayName=" POLYCHROMASIA" /> <statusCode code="completed" /& gt; <effectiveTime value="728810572969" /> &lt ;value unit="" xsi:type="PQ" value="NOTED" /> <referenceRange> <observationRange> <text /> </observationRange> </ referenceRange> </observation> </component> < component> <observation moodCode="EVN" classCode=" OBS"> <templateId root="2.16.840.1.195467.10.20.22.4.2&quot ; /> <id nullFlavor="NA" /> <code codeSystem="local" code="RBC" displayName="RED BLOOD CELL" /> <statusCode code="completed" /> <effectiveTime value="060728158012" /> <value unit="m/cumm" xsi:type="PQ" value="2.90" /> <interpretationCode codeSystem="local" code="*" /& gt; <referenceRange> <observationRange> <text>4.00-6.00</text> </observationRange> </referenceRange> </observation> </component& gt; <component> <observation moodCode="EVN" classCode="OBS"> <templateId root=" 2.16.840.1.404517.10.20.22.4.2" /> <id nullFlavor="NA& quot; /> <code codeSystem="local" code="RDW" displayName="RED CELL DISTRIBUTIONWIDTH" /> < statusCode code="completed" /> <effectiveTime value=& quot;294496690871" /> <value unit="%" xsi: type="PQ" value="21.4" /> < interpretationCode codeSystem="local" code="*" /> <referenceRange> <observationRange> <text>11.0- 15.6</text> </observationRange> </ referenceRange> </observation> </component> < component> <observation moodCode="EVN" classCode=" OBS"> <templateId root="2.16.840.1.883022.10.20.22.4.2& quot; /> <id nullFlavor="NA" /> <code codeSystem="local" code="SPH" displayName="SPHEROCYTES& quot; /> <statusCode code="completed" /> & lt;effectiveTime value="139956635755" /> <value unit=& quot;" xsi:type="PQ" value="NOTED" /> < referenceRange> <observationRange> <text /& gt; </observationRange> </referenceRange> </ observation> </component> <component> < observation moodCode="EVN" classCode="OBS"> < templateId root="2.16.840.1.909021.10.20.22.4.2" /> <id nullFlavor="NA" /> <code codeSystem="local" code="TEAR" displayName="TEAR DROP CELLS" /> &lt ;statusCode code="completed" /> <effectiveTime value=& quot;166866999023" /> <value unit="" xsi:type=& quot;PQ" value="NOTED" /> <referenceRange> <observationRange> <text /> </ observationRange> </referenceRange> </observation> </component> <component> <observation moodCode=& quot;EVN" classCode="OBS"> <templateId root=" 2.16.840.1.312219.10.20.22.4.2" /> <id nullFlavor="NA& quot; /> <code codeSystem="local" code="WBC" displayName="WHITE BLOOD CELL" /> <statusCode code=& quot;completed" /> <effectiveTime value="434494074006& quot; /> <value unit="k/cumm" xsi:type="PQ" value="7.4" /> <referenceRange> < observationRange> <text>5.0-10.0</text> & lt;/observationRange> </referenceRange> </ observation> </component> <component> < observation moodCode="EVN" classCode="OBS"> < templateId root="2.16.840.1.949837.10.20.22.4.2" /> < id nullFlavor="NA" /> <code codeSystem="local" code=& quot;HGBT" displayName="HEMOGLOBIN" /> < statusCode code="completed" /> <effectiveTime value=& quot;748603101518" /> <value unit="gm/dL" xsi:type ="PQ" value="8.6" /> <interpretationCode codeSystem="local" code="*" /> <referenceRange& gt; <observationRange> <text>12.0-16.0</ text> </observationRange> </referenceRange> </observation> </component> <component> <observation moodCode="EVN" classCode="OBS"> <templateId root="2.16.840.1.502285.10.20.22.4.2" /> <id nullFlavor="NA" /> <code codeSystem=" local" code="HCTT" displayName="HEMATOCRIT" /> <statusCode code="completed" /> <effectiveTime value="656273602660" /> <value unit="%& quot; xsi:type="PQ" value="29.7" /> < interpretationCode codeSystem="local" code="*" /> <referenceRange> <observationRange> < text>37.0-47.0</text> </observationRange> &lt ;/referenceRange> </observation> </component> & lt;component> <observation moodCode="EVN" classCode=&quot ;OBS"> <templateId root="2.16.840.1.104201.10.20.22.4.2 " /> <idnullFlavor="NA" /> <code codeSystem="local" code="PLT" displayName="PLATELET COUNT" /> <statusCode code="completed" /> <effectiveTime value="068935663679" /> <value unit="k/cumm" xsi:type="PQ" value="144" /> <interpretationCode codeSystem="local" code="*" /& gt; <referenceRange> <observationRange> <text>150-400</text> </observationRange> < /referenceRange> </observation> </component> </ organizer> </entry> <entry> <organizer moodCode="EVN " classCode="BATTERY"> <templateId root=" 2.16.840.1.308388.10.20.22.4.1" /> <id nullFlavor="NA&quot ; /> <code codeSystem="local" code="METABC" displayName="METABOLIC PANEL, COMPREHN" /> <statusCode code ="completed" /><component> <observation moodCode=& quot;EVN" classCode="OBS"> <templateId root=" 2.16.840.1.905448.10.20.22.4.2" /> <id nullFlavor="NA& quot; /> <code codeSystem="local" code="K" displayName="POTASSIUM" /> <statusCode code=" completed" /> <effectiveTime value="407469062430" /> <value unit="mmol/L" xsi:type="PQ" value=& quot;4.7" /> <referenceRange> < observationRange> <text>3.5-5.3</text> & lt;/observationRange> </referenceRange> </ observation> </component> <component> <observation moodCode="EVN" classCode="OBS"> <templateId root="2.16.840.1.787035.10.20.22.4.2" /> <id nullFlavor ="NA" /> <code codeSystem="local" code="eGFR " displayName="EST GFR (MDRD)" /> <statusCode code ="completed" /> <effectiveTime value="834202249288 " /> <value unit="mL/min" xsi:type="PQ" value="> 60" /> <referenceRange> & lt;observationRange> <text>> 59</text> </observationRange> </referenceRange> </ observation> </component> <component> < observation moodCode="EVN" classCode="OBS"> < templateId root="2.16.840.1.509344.10.20.22.4.2" /> < id nullFlavor="NA" /> <code codeSystem="local" code= "GAP" displayName="ANION GAP" /> <statusCode code="completed" /> <effectiveTime value=" 501283742121" /> <value unit="mmol/L" xsi:type=& quot;PQ" value="6" /> <referenceRange> <observationRange> <text>5-15</text> </observationRange> </referenceRange> </ observation> </component> <component> < observation moodCode="EVN" classCode="OBS"> < templateId root="2.16.840.1.102809.10.20.22.4.2" /> < id nullFlavor="NA" /> <code codeSystem="local&quot ; code="eCrCl" displayName="EST CrCl (CG)" /> & lt;statusCode code="completed" /> <effectiveTime value= "768379935008" /> <value unit="mL/min" xsi: type="PQ" value="> 60" /> < referenceRange> <observationRange> <text> > 59</text> </observationRange> </ referenceRange> </observation> </component> < component> <observation moodCode="EVN" classCode=" OBS"> <templateId root="2.16.840.1.801859.10.20.22.4.2& quot; /> <id nullFlavor="NA" /> <code codeSystem="local" code="GLU" displayName="GLUCOSE&quot ; /> <statusCode code="completed" /> < effectiveTime value="808445959909" /> <value unit=&quot ;mg/dL" xsi:type="PQ" value="164" /> < interpretationCode codeSystem="local" code="*" /> <referenceRange> <observationRange> < text>70-99</text> </observationRange> </ referenceRange> </observation> </component> < component> <observation moodCode="EVN" classCode=" OBS"> <templateId root="2.16.840.1.042288.10.20.22.4.2& quot; /> <id nullFlavor="NA" /> <code codeSystem="local" code="CA" displayName="CALCIUM&quot ; /> <statusCode code="completed" /> < effectiveTime value="102304403442" /> <value unit=&quot ;mg/dL" xsi:type="PQ" value="8.6" /> < referenceRange> <observationRange> <text> 8.5-10.1</text> </observationRange> </referenceRange& gt; </observation> </component> <component> <observation moodCode="EVN" classCode="OBS"> <templateIdroot="2.16.840.1.206251.10.20.22.4.2" /> <id nullFlavor="NA" /> <code codeSystem=" local" code="BUN" displayName="BLOOD UREA NITROGEN" /& gt; <statusCode code="completed" /> < effectiveTime value="879094054302" /> <value unit=&quot ;mg/dL" xsi:type="PQ" value="6" /> < interpretationCode codeSystem="local" code="*" /> <referenceRange> <observationRange> < text>7-20</text> </observationRange> </ referenceRange></observation> </component> < component> <observation moodCode="EVN" classCode=" OBS"> <templateId root="2.16.840.1.586529.10.20.22.4.2& quot; /> <id nullFlavor="NA" /> <code codeSystem="local" code="CREAT" displayName="CREATININE " /> <statusCode code="completed" /> & lt;effectiveTime value="041285169681" /> <value unit=& quot;mg/dL" xsi:type="PQ" value="0.6" /> < referenceRange> <observationRange> <text> 0.6-1.0</text> </observationRange> </ referenceRange> </observation> </component> < component> <observation moodCode="EVN" classCode=" OBS"> <templateId root="2.16.840.1.598360.10.20.22.4.2& quot; /> <id nullFlavor="NA" /> <code codeSystem="local" code="NA" displayName="SODIUM" /> <statusCode code="completed" /> < effectiveTime value="163275244920" /> <value unit=&quot ;mmol/L" xsi:type="PQ" value="136" /> < referenceRange> <observationRange> <text> 135-148</text> </observationRange> </ referenceRange> </observation> </component> < component> <observation moodCode="EVN" classCode=" OBS"> <templateId root="2.16.840.1.872114.10.20.22.4.2& quot; /> <id nullFlavor="NA" /> <code codeSystem="local" code="CL" displayName="CHLORIDE&quot ; /> <statusCode code="completed" /> < effectiveTime value="245997236536" /> <value unit=&quot ;mmol/L" xsi:type="PQ" value="105" /> < referenceRange> <observationRange> <text> 98-110</text> </observationRange> </referenceRange&gt ; </observation> </component> <component> <observation moodCode="EVN" classCode="OBS"> <templateId root="2.16.840.1.866827.10..22.4.2" /> <id nullFlavor="NA" /> <code codeSystem=" local" code="AST" displayName="AST/SGOT" /> <statusCode code="completed" /> <effectiveTime value="206743483705" /> <value unit="Units/L&quot ; xsi:type="PQ" value="57" /> < interpretationCode codeSystem="local" code="*" /> <referenceRange> <observationRange> < text>10-37</text> </observationRange> </ referenceRange> </observation> </component> < component> <observation moodCode="EVN" classCode=" OBS"> <templateId root="2.16.840.1.064286.10.20.22.4.2& quot; /> <id nullFlavor="NA" /> <code codeSystem="local" code="ALT" displayName="ALT/SGPT& quot; /> <statusCode code="completed" /> & lt;effectiveTime value="476199718034" /> <value unit=& quot;Units/L" xsi:type="PQ" value="34" /> & lt;referenceRange> <observationRange> <text& gt;< 66</text> </observationRange> </ referenceRange> </observation> </component> < component> <observation moodCode="EVN" classCode=" OBS"> <templateId root="2.16.840.1.674858.10.20.22.4.2& quot; /> <id nullFlavor="NA" /> <code codeSystem="local" code="CO2" displayName="CARBON DIOXIDE" /> <statusCode code="completed" /> <effectiveTime value="307474955816" /> < value unit="mmol/L" xsi:type="PQ" value="25" /&gt ; <referenceRange> <observationRange> <text>21-32</text> </observationRange> </referenceRange> </observation> </component> <component> <observation moodCode="EVN" classCode= "OBS"> <templateId root=" 2.16.840.1.789248.10.20.22.4.2" /> <id nullFlavor="NA& quot; /> <code codeSystem="local" code="TP" displayName="TOTAL PROTEIN" /> <statusCode code=" completed" /> <effectiveTime value="668453608809" /> <value unit="gm/dL" xsi:type="PQ" value="6.1 " /> <interpretationCode codeSystem="local" code=& quot;*" /> <referenceRange> < observationRange> <text>6.4-8.2</text> & lt;/observationRange> </referenceRange> </ observation> </component> <component> < observation moodCode="EVN" classCode="OBS"> < templateId root="2.16.840.1.327121.10.20.22.4.2" /> < id nullFlavor="NA" /> <code codeSystem="local" code=& quot;ALB" displayName="ALBUMIN" /> <statusCode code=& quot;completed" /> <effectiveTime value="974081746840& quot; /> <value unit="gm/dL" xsi:type="PQ" value="2.6" /> <interpretationCode codeSystem=" local" code="*" /> <referenceRange> < observationRange> <text>3.4-5.0</text> & lt;/observationRange> </referenceRange> </ observation> </component> <component> < observation moodCode="EVN"classCode="OBS"> < templateId root="2.16.840.1.722928.10.20.22.4.2" /> < id nullFlavor="NA" /> <code codeSystem="local&quot ; code="BILTOT" displayName="BILI TOTAL" /> < statusCode code="completed" /> <effectiveTime value=& quot;409954161334" /> <value unit="mg/dL" xsi:type ="PQ" value="0.9" /> <referenceRange> <observationRange> <text>0.0-1.0</text> </observationRange> </referenceRange> </ observation> </component> <component> < observation moodCode="EVN" classCode="OBS"> < templateId root="2.16.840.1.093016.10.20.22.4.2" /> < id nullFlavor="NA" /> <code codeSystem="local&quot ; code="ALKP" displayName="ALKALINE PHOSPHATASE TOTAL" /&gt ; <statusCode code="completed" /> < effectiveTime value="932740726545" /> <valueunit=" IU/L" xsi:type="PQ" value="171" /> < interpretationCode codeSystem="local" code="*" /> <referenceRange> <observationRange> <text>45- 117</text> </observationRange> </ referenceRange> </observation> </component> </ organizer> </entry> <entry> <organizer moodCode="EVN " classCode="BATTERY"> <templateId root=" 2.16.840.1.099554.10.20.22.4.1" /> <id nullFlavor="NA&quot ; /> <code codeSystem="local" code="GLUMON" displayName="GLUCOSE (POC)" /> <statusCode code=" completed" /> <component> <observation moodCode=" EVN" classCode="OBS"> <templateId root=" 2.16.840.1.011038.10.20.22.4.2" /> <id nullFlavor="NA& quot; /> <code codeSystem="local" code="GLUMON& quot; displayName="GLUCOSE (POC)" /> <statusCode code=& quot;completed" /> <effectiveTime value="275033744459" /& gt; <value unit="mg/dL" xsi:type="PQ" value=& quot;168" /> <interpretationCode codeSystem="local&quot ; code="*" /> <referenceRange> < observationRange> <text>70-99</text> < /observationRange> </referenceRange> </observation& gt; </component> </organizer> </entry> <entry&gt ; <organizer moodCode="EVN" classCode="BATTERY"> <templateId root="[id number]" /> & lt;id nullFlavor="NA" /> <code codeSystem="local&quot ; code="GLUMON" displayName="GLUCOSE (POC)" /> < statusCode code="completed" /> <component> < observation moodCode="EVN" classCode="OBS"> < templateId root="2.16.840.1.594112.10.20.22.4.2" /> < id nullFlavor="NA" /> <code codeSystem="local" code="GLUMON" displayName="GLUCOSE (POC)" /> &lt ;statusCode code="completed" /> <effectiveTime value=& quot;531166852080" /> <value unit="mg/dL" xsi:type ="PQ" value="194" /> <interpretationCode codeSystem="local" code="*" /> < referenceRange> <observationRange> <text> 70-99</text> </observationRange> </ referenceRange> </observation> </component> </ organizer> </entry> <entry> <organizer moodCode="EVN " classCode="BATTERY"> <templateId root=" 2.16.840.1.520745.10.20.22.4.1" /> <id nullFlavor="NA&quot ; /> <codecodeSystem="local" code="GLUMON" displayName="GLUCOSE (POC)" /> <statusCode code="completed& quot; /> <component> <observation moodCode="EVN& quot; classCode="OBS"> <templateId root=" 2.16.840.1.983765.10.20.22.4.2" /> <id nullFlavor="NA& quot; /> <code codeSystem="local" code="GLUMON& quot; displayName="GLUCOSE (POC)" /> <statusCode code=& quot;completed" /> <effectiveTime value="663879484754& quot; /> <value unit="mg/dL" xsi:type="PQ" value="191" /> <interpretationCode codeSystem=" local" code="*" /> <referenceRange> <observationRange> <text>70-99</text> </ observationRange> </referenceRange> </observation&gt ; </component> </organizer> </entry> <entry> <organizer moodCode="EVN" classCode="BATTERY"> <templateId root="2.16.840.1.851381.10.20.22.4.1" /> < id nullFlavor="NA" /> <code codeSystem="local" code="GLUMON" displayName="GLUCOSE (POC)" /> < statusCode code="completed" /> <component> < observation moodCode="EVN" classCode="OBS"> < templateId root="2.16.840.1.868901.10.20.22.4.2" /> < id nullFlavor="NA" /> <code codeSystem="local&quot ; code="GLUMON" displayName="GLUCOSE (POC)" /> & lt;statusCode code="completed" /> <effectiveTime value= "010195074329" /> <value unit="mg/dL" xsi: type="PQ" value="171" /> <interpretationCode codeSystem="local" code="*" /> < referenceRange> <observationRange> <text>70-99< /text> </observationRange> </referenceRange> </observation> </component> </organizer> < /entry> <entry> <organizer moodCode="EVN" classCode=& quot;BATTERY"> <templateId root=" 2.16.840.1.182108.10.20.22.4.1" /> <id nullFlavor="NA&quot ; /> <code codeSystem="local" code="CBCD" displayName="CBC W/DIFF" /> <statusCode code=" completed" /> <component> <observation moodCode=& quot;EVN" classCode="OBS"> <templateId root=" 2.16.840.1.789189.10.20.22.4.2" /> <id nullFlavor="NA& quot; /> <code codeSystem="local" code="EO#" displayName="EOSINOPHIL #" /> <statusCode code=" completed" /> <effectiveTime value="545384400332" /> <value unit="k/cumm" xsi:type="PQ" value=& quot;0.4" /> <referenceRange> < observationRange> <text>0.1-0.5</text> & lt;/observationRange> </referenceRange> </observation> </component> <component> <observation moodCode=&quot ;EVN" classCode="OBS"> <templateIdroot=" 2..840.1.582957.10..22.4.2" /> <id nullFlavor="NA& quot; /> <code codeSystem="local" code="EO&#37 ;" displayName="EOSINOPHIL %" /> < statusCode code="completed" /> <effectiveTime value=& quot;331638950310" /> <value unit="%" xsi: type="PQ" value="7" /> <interpretationCode codeSystem="local" code="*" /> < referenceRange> <observationRange> <text>2-4< /text> </observationRange> </referenceRange> </observation> </component> <component> <observation moodCode="EVN" classCode="OBS"> <templateId root="2.16.840.1.275681.10.20.22.4.2" /> <id nullFlavor="NA" /> <code codeSystem=" local" code="GR#" displayName="GRANULOCYTE #" /> &lt ;statusCode code="completed" /> <effectiveTime value=& quot;" /> <value unit="k/cumm" xsi: type="PQ" value="3.8"/> <referenceRange> <observationRange> <text>2.0-9.0</text&gt ; </observationRange> </referenceRange> & lt;/observation> </component> <component> < observation moodCode="EVN" classCode="OBS"> < templateId root="2.16.840.1.850072.10.20.22.4.2" /> < id nullFlavor="NA" /> <code codeSystem="local&quot ; code="GR%" displayName="GRANULOCYTE %" /& gt;<statusCode code="completed" /> <effectiveTime value="263460288641" /> <value unit="%& quot; xsi:type="PQ" value="68" /> < referenceRange> <observationRange> <text> 50-75</text> </observationRange> </ referenceRange> </observation> </component> < component> <observation moodCode="EVN" classCode=" OBS"> <templateId root="2.16.840.1.390090.10..22.4.2& quot; /> <id nullFlavor="NA" /> <code codeSystem="local" code="LY#" displayName="LYMPHOCYTE # " /> <statusCode code="completed" /> & lt;effectiveTime value="024230841333" /> <value unit="k/ cumm" xsi:type="PQ" value="0.7" /> < interpretationCode codeSystem="local" code="*" /> <referenceRange> <observationRange> < text>1.0-4.0</text> </observationRange> </ referenceRange> </observation> </component> < component> <observation moodCode="EVN" classCode=" OBS"> <templateId root="2.16.840.1.765297.10.20.22.4.2& quot; /> <id nullFlavor="NA" /> <code codeSystem="local" code="LY%" displayName=" LYMPHOCYTE %" /> <statusCode code="completed& quot; /> <effectiveTime value="" /> <value unit="%" xsi:type="PQ" value=" 13" /> <interpretationCode codeSystem="local" code ="*" /> <referenceRange><observationRange> <text>20-30</text> </observationRange> </referenceRange> </observation> </component > <component> <observation moodCode="EVN" classCode="OBS"> <templateId root=" 2.16.840.1.203918.10.20.22.4.2" /> <id nullFlavor="NA& quot; /> <code codeSystem="local" code="MCH" displayName="MEAN CELL HGB" /> <statusCode code=" completed" /> <effectiveTime value="" /> <value unit="pg" xsi:type="PQ" value=&quot ;29.2" /> <referenceRange> < observationRange> <text>27.0-33.0</text> </observationRange> </referenceRange> </ observation> </component> <component> <observation moodCode="EVN" classCode="OBS"> <templateId root="2.16.840.1.933675.10.20.22.4.2" /> <id nullFlavor ="NA" /> <code codeSystem="local" code="MCHC& quot; displayName="MEAN CELL HGB CONCENTRATION" /> < statusCode code="completed" /> <effectiveTime value=& quot;975248591444" /> <value unit="g/dL" xsi:type= "PQ" value="29.6" /> <interpretationCode codeSystem="local" code="*" /> < referenceRange> <observationRange><text>32.0-37.0</ text> </observationRange> </referenceRange> </observation> </component> <component> <observation moodCode="EVN" classCode="OBS"> <templateId root="2.16.840.1.609540.10.20.22.4.2" /> <id nullFlavor="NA" /> <code codeSystem=" local" code="MCV" displayName="MEAN CELL VOLUME" /> <statusCode code="completed" /> <effectiveTime value="839661111075" /> <value unit="fl" xsi: type="PQ" value="98.6" /> <referenceRange&gt ; <observationRange> <text>80.0-100.0</ text> </observationRange> </referenceRange> </observation> </component> <component> <observation moodCode="EVN" classCode="OBS"> <templateId root="2.16.840.1.937465.10.20.22.4.2" /> <id nullFlavor="NA" /> <code codeSystem=" local" code="MO#" displayName="MONOCYTE #" /> <statusCode code="completed" /> <effectiveTime value="765785088741" /> <value unit="k/cumm" xsi: type="PQ" value="0.6" /> <referenceRange> <observationRange> <text>0.1-1.0</text& gt; </observationRange> </referenceRange> </observation> </component> <component> < observation moodCode="EVN" classCode="OBS"> < templateId root="2.16.840.1.294210.10.20.22.4.2" /> <id nullFlavor="NA" /> <code codeSystem="local" code="MO%" displayName="MONOCYTE %" /> <statusCode code="completed" /> < effectiveTime value="392344205765" /> <value unit=&quot ;%" xsi:type="PQ" value="11" /> &lt ;interpretationCode codeSystem="local" code="*" /> <referenceRange> <observationRange> < text>4-6</text> </observationRange> </ referenceRange> </observation> </component> < component> <observation moodCode="EVN" classCode=" OBS"> <templateId root="2.16.840.1.967360.10.20.22.4.2& quot; /> <id nullFlavor="NA" /> <code codeSystem="local" code="OVAL" displayName="OVALOCYTES& quot; /> <statusCode code="completed" />< effectiveTime value="" /> <value unit=&quot ;" xsi:type="PQ" value="NOTED" /> < referenceRange> <observationRange> <text /& gt; </observationRange> </referenceRange> </observation> </component> <component> &lt ;observation moodCode="EVN" classCode="OBS"> &lt ;templateId root="2.16.840.1.038412.10.20.22.4.2" /> < id nullFlavor="NA" /> <code codeSystem="local&quot ; code="POLC" displayName="POLYCHROMASIA" /> < statusCode code="completed" /> <effectiveTime value=& quot;" /> <value unit="" xsi:type=& quot;PQ" value="NOTED" /> <referenceRange> <observationRange> <text /> </ observationRange> </referenceRange> </observation&gt ; </component> <component> <observation moodCode=& quot;EVN" classCode="OBS"> <templateId root=" 2.16.840.1.284081.10.20.22.4.2" /> <id nullFlavor="NA& quot; /> <code codeSystem="local" code="RBC" displayName="RED BLOOD CELL" /> <statusCode code=" completed" /> <effectiveTime value="974588314705" /> <value unit="m/cumm" xsi:type="PQ" value=& quot;2.91" /> <interpretationCode codeSystem="local& quot; code="*" /> <referenceRange> < observationRange> <text>4.00-6.00</text> </observationRange> </referenceRange> </ observation> </component><component> <observation moodCode="EVN" classCode="OBS"> <templateId root=& quot;2.16.840.1.218283.10.20.22.4.2" /> <id nullFlavor=&quot ;NA" /> <code codeSystem="local" code="RDW& quot; displayName="RED CELL DISTRIBUTION WIDTH" /> < statusCode code="completed" /> <effectiveTime value=& quot;695594070376" /> <value unit="%" xsi: type="PQ" value="20.0" /> < interpretationCode codeSystem="local" code="*" /> <referenceRange> <observationRange> < text>11.0-15.6</text> </observationRange> </ referenceRange> </observation> </component> < component> <observation moodCode="EVN" classCode=" OBS"> <templateId root="2.16.840.1.885080.10.20.22.4.2& quot; /> <id nullFlavor="NA" /> <code codeSystem="local" code="SPH" displayName="SPHEROCYTES& quot; /> <statusCode code="completed" /> & lt;effectiveTimevalue="709148812963" /> <value unit=& quot;" xsi:type="PQ" value="NOTED" /> < referenceRange> <observationRange> <text /> </observationRange> </referenceRange> </ observation> </component> <component> < observation moodCode="EVN" classCode="OBS"> < templateId root="2.16.840.1.921484.10.20.22.4.2" /> < id nullFlavor="NA" /> <code codeSystem="local&quot ; code="WBC" displayName="WHITE BLOOD CELL" /> & lt;statusCode code="completed" /> <effectiveTime value= "330729740448" /> <value unit="k/cumm" xsi: type="PQ" value="5.6" /> <referenceRange> <observationRange> <text>5.0-10.0</text> </observationRange> </referenceRange> < /observation> </component> <component> < observation moodCode="EVN"classCode="OBS"> < templateId root="2.16.840.1.410899.10.20.22.4.2" /> < id nullFlavor="NA" /> <code codeSystem="local&quot ; code="HGBT" displayName="HEMOGLOBIN" /> < statusCode code="completed" /> <effectiveTime value=& quot;" /> <value unit="gm/dL" xsi:type ="PQ" value="8.5" /> <interpretationCode codeSystem="local" code="*" /> < referenceRange> <observationRange> <text>12.0- 16.0</text> </observationRange> </ referenceRange> </observation> </component> < component> <observation moodCode="EVN" classCode=" OBS"> <templateId root="2.16.840.1.725047.10.20.22.4.2&quot ; /> <id nullFlavor="NA" /> <code codeSystem="local" code="HCTT" displayName="HEMATOCRIT& quot; /> <statusCode code="completed" /> & lt;effectiveTime value="" /> <value unit=& quot;%" xsi:type="PQ" value="28.7" /> <interpretationCode codeSystem="local" code="*" /&gt ; <referenceRange> <observationRange> <text>37.0-47.0</text> </observationRange> </referenceRange> </observation> </component&gt ; <component> <observation moodCode="EVN" classCode="OBS"> <templateId root=" 2.16.840.1.609887.10.20.22.4.2" /> <id nullFlavor="NA& quot; /> <code codeSystem="local" code="PLT" displayName="PLATELET COUNT"/> <statusCode code=" completed" /> <effectiveTime value="357614905278" /> <value unit="k/cumm" xsi:type="PQ" value=& quot;150" /> <referenceRange> < observationRange><text>150-400</text> </ observationRange> </referenceRange> </observation&gt ; </component> </organizer> </entry> <entry> <organizer moodCode="EVN" classCode="BATTERY"> <templateId root="2.16.840.1.233121.10.20.22.4.1" /> < id nullFlavor="NA" /> <code codeSystem="local" code= "METABC" displayName="METABOLIC PANEL, COMPREHN" /> <statusCode code="completed" /> <component> < observation moodCode="EVN" classCode="OBS"> < templateId root="2.16.840.1.295280.10..22.4.2" /> < id nullFlavor="NA" /> <code codeSystem="local" code="K" displayName="POTASSIUM" /> < statusCode code="completed" /> <effectiveTime value=& quot;507430790690" /> <value unit="mmol/L" xsi: type="PQ" value="4.3" /> <referenceRange> <observationRange> <text>3.5-5.3</text& gt; </observationRange> </referenceRange> & lt;/observation> </component> <component> < observation moodCode="EVN" classCode="OBS"> < templateId root="2.16.840.1.183104.10.20.22.4.2" /> < id nullFlavor="NA" /> <code codeSystem="local&quot ; code="eGFR" displayName="EST GFR (MDRD)" /> & lt;statusCode code="completed" /> <effectiveTime value= "" /> <value unit="mL/min" xsi: type="PQ" value="> 60" /> < referenceRange> <observationRange> <text> > 59</text> </observationRange> </ referenceRange> </observation> </component> < component> <observation moodCode="EVN" classCode=" OBS"> <templateId root="2.16.840.1.976570.10.20.22.4.2& quot; /> <id nullFlavor="NA" /> <code codeSystem="local" code="GAP" displayName="ANION GAP& quot; /> <statusCode code="completed" /> & lt;effectiveTime value="" /> <value unit=&quot ;mmol/L" xsi:type="PQ" value="7" /> < referenceRange> <observationRange> <text> 5-15</text> </observationRange> </ referenceRange> </observation> </component> < component> <observation moodCode="EVN" classCode=" OBS"> <templateId root="2.16.840.1.714098.10.20.22.4.2& quot; /> <id nullFlavor="NA" /> <code codeSystem="local" code="eCrCl" displayName="EST CrCl ( CG)" /> <statusCode code="completed" /> <effectiveTime value="" /> <value unit="mL/min" xsi:type="PQ" value="> 60" /& gt; <referenceRange> <observationRange> <text>> 59</text> </observationRange> </referenceRange> </observation> </component&gt ; <component> <observation moodCode="EVN" classCode="OBS"> <templateId root=" 2.16.840.1.371087.10.20.22.4.2" /> <id nullFlavor="NA" / > <code codeSystem="local" code="GLU" displayName="GLUCOSE" /> <statusCode code=" completed" /> <effectiveTime value="" /> <value unit="mg/dL" xsi:type="PQ" value=& quot;153" /> <interpretationCode codeSystem="local&quot ; code="*" /> <referenceRange> < observationRange> <text>70-99</text> < /observationRange> </referenceRange> </observation> </component> <component> <observation moodCode=" EVN" classCode="OBS"> <templateId root=" 2.16.840.1.045700.10.20.22.4.2" /> <id nullFlavor="NA& quot; /> <code codeSystem="local" code="CA" displayName="CALCIUM"/> <statusCode code=" completed" /> <effectiveTime value="643709879727" /> <value unit="mg/dL" xsi:type="PQ" value=& quot;8.5" /> <referenceRange> < observationRange> <text>8.5-10.1</text> & lt;/observationRange> </referenceRange> </ observation> </component> <component> < observation moodCode="EVN" classCode="OBS"> < templateId root="2.16.840.1.083686.10.20.22.4.2" /> < id nullFlavor="NA" /> <code codeSystem="local&quot ; code="BUN" displayName="BLOOD UREA NITROGEN" /> < statusCode code="completed" /> <effectiveTime value=& quot;209228195375" /> <value unit="mg/dL" xsi:type ="PQ" value="7"/> <referenceRange> <observationRange> <text>7-20</text> </observationRange> </referenceRange> </ observation> </component> <component> < observation moodCode="EVN" classCode="OBS"> < templateId root="2.16.840.1.005542.10.20.22.4.2" /> < id nullFlavor="NA" /> <code codeSystem="local&quot ; code="CREAT" displayName="CREATININE" /> < statusCode code="completed" /> <effectiveTime value=& quot;089942038786" /><value unit="mg/dL" xsi:type="PQ& quot; value="0.6" /> <referenceRange> &lt ;observationRange> <text>0.6-1.0</text> </ observationRange> </referenceRange> </observation&gt ; </component> <component> <observation moodCode ="EVN" classCode="OBS"> <templateId root=& quot;2.16.840.1.524190.10.20.22.4.2" /> <id nullFlavor="NA& quot; /> <code codeSystem="local" code="NA" displayName="SODIUM" /> <statusCode code=" completed" /> <effectiveTime value="062170475674" /> <value unit="mmol/L" xsi:type="PQ" value=& quot;137" /> <referenceRange> <observationRange> <text>135-148</text> </observationRange& gt; </referenceRange> </observation> </ component> <component> <observation moodCode="EVN& quot; classCode="OBS"> <templateId root=" 2.16.840.1.234787.10.20.22.4.2" /> <id nullFlavor="NA& quot; /> <code codeSystem="local" code="CL" displayName="CHLORIDE" /> <statusCode code=" completed" /> <effectiveTime value="637196707557" /> <value unit="mmol/L" xsi:type="PQ" value=& quot;104" /> <referenceRange> < observationRange> <text>98-110</text> &lt ;/observationRange> </referenceRange> </observation& gt; </component> <component> <observation moodCode="EVN" classCode="OBS"> <templateId root="2.16.840.1.941122.10.20.22.4.2" /> <id nullFlavor ="NA" /> <code codeSystem="local" code="AST& quot; displayName="AST/SGOT" /> <statusCode code=" completed" /> <effectiveTime value="632592415862" /> <value unit="Units/L" xsi:type="PQ" value= "36" /> <referenceRange> < observationRange> <text>10-37</text> < /observationRange> </referenceRange> </observation> </component> <component> <observation moodCode=& quot;EVN" classCode="OBS"> <templateId root=" 2.16.840.1.422400.10.20.22.4.2" /> <id nullFlavor="NA& quot; /> <code codeSystem="local" code="ALT" displayName="ALT/SGPT" /> <statusCodecode=" completed" /> <effectiveTime value="100238809153" /> <value unit="Units/L" xsi:type="PQ" value=&quot ;33" /> <referenceRange> <observationRange& gt; <text>< 66</text> </ observationRange> </referenceRange> </observation&gt ; </component> <component> <observation moodCode ="EVN" classCode="OBS"> <templateId root=& quot;2.16.840.1.983964.10.20.22.4.2" /> <id nullFlavor=&quot ;NA" /> <code codeSystem="local" code="CO2& quot; displayName="CARBON DIOXIDE" /> <statusCode code= "completed" /> <effectiveTime value="377776609421& quot; /> <value unit="mmol/L" xsi:type="PQ" value="26" /> <referenceRange> < observationRange> <text>21-32</text> < /observationRange> </referenceRange> </observation& gt; </component> <component> <observation moodCode="EVN" classCode="OBS"> <templateId root="2.16.840.1.796053.10.20.22.4.2" /> <id nullFlavor ="NA" /> <code codeSystem="local" code=" TP"displayName="TOTAL PROTEIN" /> <statusCode code ="completed" /> <effectiveTime value="043332804698& quot; /> <value unit="gm/dL" xsi:type="PQ" value="6.1" /> <interpretationCode codeSystem=" local" code="*" /> <referenceRange> <observationRange> <text>6.4-8.2</text> </observationRange></referenceRange> </observation> </component> <component> <observation moodCode=& quot;EVN" classCode="OBS"> <templateId root=" 2.16.840.1.822816.10.20.22.4.2" /> <id nullFlavor="NA& quot; /> <code codeSystem="local" code="ALB" displayName="ALBUMIN" /> <statusCode code=" completed" /> <effectiveTime value="461680360393" /> <value unit="gm/dL" xsi:type="PQ" value=& quot;2.6" /> <interpretationCode codeSystem="local&quot ; code="*" /> <referenceRange> < observationRange> <text>3.4-5.0</text> & lt;/observationRange> </referenceRange> </ observation> </component> <component> < observation moodCode="EVN" classCode="OBS"> < templateId root="2.16.840.1.334275.10.20.22.4.2" /> < id nullFlavor="NA" /> <code codeSystem="local&quot ; code="BILTOT" displayName="BILI TOTAL" /> < statusCode code="completed" /> <effectiveTime value=& quot;" /> <value unit="mg/dL" xsi:type="PQ " value="0.7" /> <referenceRange> & lt;observationRange> <text>0.0-1.0</text> & lt;/observationRange> </referenceRange> </ observation></component> <component> <observation moodCode="EVN" classCode="OBS"> <templateId root="2.16.840.1.344635.10.20.22.4.2" /> <id nullFlavor=& quot;NA" /> <code codeSystem="local" code=" ALKP" displayName="ALKALINE PHOSPHATASE TOTAL" /> &lt ;statusCode code="completed" /> <effectiveTime value=& quot;" /> <value unit="IU/L" xsi:type= "PQ" value="176" /> <interpretationCode codeSystem="local" code="*" /> < referenceRange> <observationRange> <text>45- 117</text> </observationRange> </ referenceRange> </observation> </component> </ organizer> </entry> <entry> <organizer moodCode="EVN " classCode="BATTERY"> <templateId root=" 2.16.840.1.556332.10.20.22.4.1" /> <id nullFlavor="NA" / > <code codeSystem="local" code="GLUMON" displayName="GLUCOSE (POC)" /> <statusCode code=" completed" /> <component> <observation moodCode=& quot;EVN" classCode="OBS"> <templateId root=" 2.16.840.1.961001.10.20.22.4.2" /> <id nullFlavor="NA& quot; /> <code codeSystem="local" code="GLUMON& quot;displayName="GLUCOSE (POC)" /> <statusCode code=& quot;completed" /> <effectiveTime value="981020759166& quot; /> <value unit="mg/dL" xsi:type="PQ" value="157" /> <interpretationCode codeSystem=" local" code="*" /> <referenceRange> <observationRange> <text>70-99</text> </observationRange> </referenceRange> </ observation> </component> </organizer> </entry> & lt;entry> <organizer moodCode="EVN" classCode="BATTERY& quot;> <templateId root="2.16.840.1.679873.10.20.22.4.1" /& gt; <id nullFlavor="NA" /> <code codeSystem=" local" code="GLUMON" displayName="GLUCOSE (POC)" /> <statusCode code="completed" /> <component> <observation moodCode="EVN" classCode="OBS"> <templateId root="2.16.840.1.179916.10.20.22.4.2" /> <id nullFlavor="NA" /> <code codeSystem=" local" code="GLUMON" displayName="GLUCOSE (POC)" /> <statusCode code="completed" /> < effectiveTime value="010407252234" /> <value unit=&quot ;mg/dL" xsi:type="PQ" value="181" /> < interpretationCode codeSystem="local" code="*" /> <referenceRange> <observationRange> < text>70-99</text> </observationRange> </ referenceRange> </observation> </component> </ organizer> </entry> <entry> <organizer moodCode="EVN " classCode="BATTERY"> <templateId root=" 2.16.840.1.031911.10.20.22.4.1" /> <id nullFlavor="NA&quot ; /> <code codeSystem="local" code="GLUMON" displayName="GLUCOSE (POC)" /> <statusCode code=" completed" /> <component> <observation moodCode=& quot;EVN" classCode="OBS"> <templateId root=" 2.16.840.1.190394.10.20.22.4.2" /> <id nullFlavor="NA& quot; /> <code codeSystem="local" code="GLUMON& quot; displayName="GLUCOSE (POC)" /> <statusCode code=" completed" /> <effectiveTime value="968494954600" /> <value unit="mg/dL" xsi:type="PQ" value=& quot;149" /> <interpretationCode codeSystem="local&quot ; code="*" /> <referenceRange> < observationRange> <text>70-99</text> < /observationRange> </referenceRange> </observation& gt; </component> </organizer> </entry> <entry> <organizer moodCode="EVN" classCode="BATTERY"> <templateId root="2.16.840.1.368934.10.20.22.4.1" /> &lt ;id nullFlavor="NA" /> <code codeSystem="local" code="GLUMON" displayName="GLUCOSE (POC)" /> < statusCode code="completed" /> <component> < observation moodCode="EVN" classCode="OBS"> < templateId root="2.16.840.1.211225.10.20.22.4.2" /> < id nullFlavor="NA" /> <code codeSystem="local&quot ; code="GLUMON" displayName="GLUCOSE (POC)" /> & lt;statusCode code="completed" /> <effectiveTime value= "540102101533" /> <value unit="mg/dL" xsi: type="PQ" value="171" /> <interpretationCode codeSystem="local" code="*" /> < referenceRange> <observationRange> <text>70 -99</text> </observationRange> </ referenceRange> </observation> </component> </ organizer> </entry> <entry> <organizer moodCode="EVN " classCode="BATTERY"> <templateId root=" 2.16.840.1.379618.10.20.22.4.1" /> <id nullFlavor="NA" /> <code codeSystem="local" code="CBCD" displayName="CBC W/DIFF" /> <statusCode code=" completed" /> <component> <observation moodCode=& quot;EVN" classCode="OBS"> <templateId root=" [id number]" /> <id nullFlavor="NA& quot; /> <code codeSystem="local" code="BA#" displayName="BASOPHIL #" /> <statusCode code=" completed" /> <effectiveTime value="[id number]" /> <value unit="k/cumm" xsi:type="PQ" value=& quot;0.0" /> <referenceRange> < observationRange> <text>0.0-0.2</text> & lt;/observationRange> </referenceRange> </observation&gt ; </component> <component> <observation moodCode ="EVN" classCode="OBS"> <templateId root=& quot;2.16.840.1.081245.10.20.22.4.2" /> <id nullFlavor=&quot ;NA"/> <code codeSystem="local" code="BA& #37;" displayName="BASOPHIL %" /> < statusCode code="completed" /> <effectiveTime value=& quot;817935883507" /> <value unit="%" xsi: type="PQ" value="1" /> <referenceRange> <observationRange> <text>0-1</text> </observationRange> </referenceRange> </ observation> </component> <component> < observation moodCode="EVN" classCode="OBS"> < templateId root="2.16.840.1.945357.10..22.4.2" /> < id nullFlavor="NA" /> <code codeSystem="local" code="CBCCOM" displayName="COMMENT" /> < statusCode code="completed" /> <effectiveTime value=& quot;118431616414" /> <value unit="" xsi:type=& quot;PQ" value="REVIEWED" /> <referenceRange> <observationRange><text /> </ observationRange> </referenceRange> </observation&gt ; </component> <component> <observation moodCode ="EVN" classCode="OBS"> <templateId root=& quot;2.16.840.1.556443.10..22.4.2" /> <id nullFlavor=&quot ;NA" /> <code codeSystem="local" code="EO#& quot; displayName="EOSINOPHIL #" /> <statusCode code=& quot;completed" /> <effectiveTime value="625131364627& quot; /> <value unit="k/cumm" xsi:type="PQ" value="0.3" /> <referenceRange> < observationRange> <text>0.1-0.5</text> </ observationRange> </referenceRange> </observation&gt ; </component> <component> <observation moodCode ="EVN" classCode="OBS"> <templateId root=& quot;2.16.840.1.201394.10.20.22.4.2" /> <id nullFlavor="NA& quot; /> <code codeSystem="local" code="EO&#37 ;" displayName="EOSINOPHIL %" /> < statusCode code="completed" /> <effectiveTime value=& quot;071007466077" /> <value unit="%" xsi: type="PQ" value="6" /> <interpretationCode codeSystem="local" code="*" /> < referenceRange> <observationRange> <text>2 -4</text> </observationRange> </ referenceRange> </observation> </component> < component> <observation moodCode="EVN" classCode=" OBS"> <templateId root="2.16.840.1.599784.10.20.22.4.2& quot; /> <id nullFlavor="NA" /> <code codeSystem="local" code="GR#" displayName="GRANULOCYTE #" /> <statusCode code="completed" /> <effectiveTime value="959504511813" /> <value unit=& quot;k/cumm" xsi:type="PQ" value="3.7" /> & lt;referenceRange> <observationRange> <text& gt;2.0-9.0</text> </observationRange> </ referenceRange> </observation> </component> < component> <observation moodCode="EVN" classCode=" OBS"> <templateId root="2.16.840.1.377839.10.20.22.4.2& quot; /> <id nullFlavor="NA"/> <code codeSystem="local" code="GR%" displayName=" GRANULOCYTE %" /> <statusCode code="completed& quot; /> <effectiveTime value="138619129316" /> <value unit="%" xsi:type="PQ" value=" 69" /> <referenceRange> <observationRange& gt; <text>50-75</text> </observationRange > </referenceRange> </observation> </component > <component> <observation moodCode="EVN" classCode="OBS"> <templateId root=" 2.16.840.1.564114.10.20.22.4.2" /> <id nullFlavor="NA& quot; /> <code codeSystem="local" code="LY#" displayName="LYMPHOCYTE #" /> <statusCode code=" completed" /> <effectiveTime value="100378539948" /> <value unit="k/cumm" xsi:type="PQ" value=& quot;0.6" /> <interpretationCode codeSystem="local&quot ; code="*" /> <referenceRange> < observationRange> <text>1.0-4.0</text> & lt;/observationRange> </referenceRange> </observation&gt ; </component> <component> <observation moodCode ="EVN" classCode="OBS"> <templateId root=& quot;2.16.840.1.170317.10.20.22.4.2" /> <id nullFlavor=&quot ;NA" /> <code codeSystem="local" code="LY&amp ;#37;" displayName="LYMPHOCYTE %" /> < statusCode code="completed" /> <effectiveTime value=& quot;713789288426" /> <value unit="%" xsi: type="PQ" value="11" /> <interpretationCode codeSystem="local" code="*" /> <referenceRange& gt; <observationRange> <text>20-30</text& gt; </observationRange> </referenceRange> </observation> </component> <component> &lt ;observation moodCode="EVN" classCode="OBS"> &lt ;templateId root="2.16.840.1.671006.10.20.22.4.2" /> < id nullFlavor="NA" /> <code codeSystem="local&quot ; code="MCH" displayName="MEAN CELL HGB" /> < statusCode code="completed" /> <effectiveTime value=& quot;952667368911" /> <value unit="pg" xsi:type=& quot;PQ" value="29.1" /> <referenceRange> <observationRange> <text>27.0-33.0</text> </observationRange> </referenceRange> </ observation> </component> <component> < observation moodCode="EVN" classCode="OBS"> < templateId root="2.16.840.1.358866.10.20.22.4.2" /> < id nullFlavor="NA" /> <code codeSystem="local&quot ; code="MCHC" displayName="MEAN CELL HGB CONCENTRATION" /&gt ; <statusCode code="completed" /> < effectiveTime value="154540961240" /> <value unit=&quot ;g/dL" xsi:type="PQ" value="30.3" /> < interpretationCode codeSystem="local" code="*" /> <referenceRange> <observationRange> <text> 32.0-37.0</text> </observationRange> </ referenceRange> </observation> </component> < component> <observation moodCode="EVN" classCode=" OBS"> <templateId root="2.16.840.1.054935.10..22.4.2&quot ; /> <id nullFlavor="NA" /> <code codeSystem="local" code="MCV" displayName="MEAN CELL VOLUME" /> <statusCode code="completed" /> < effectiveTime value="658549625614" /> <value unit=&quot ;fl" xsi:type="PQ" value="96.1" /> < referenceRange> <observationRange> <text> 80.0-100.0</text> </observationRange> </ referenceRange> </observation> </component> < component> <observation moodCode="EVN" classCode=" OBS"> <templateId root="2.16.840.1.947109.10..22.4.2& quot; /> <id nullFlavor="NA" /> <code codeSystem="local" code="MO#" displayName="MONOCYTE #& quot; /> <statusCode code="completed" /> & lt;effectiveTime value="042207515400" /> <value unit=& quot;k/cumm" xsi:type="PQ" value="0.8" /> & lt;referenceRange> <observationRange> <text> 0.1-1.0</text> </observationRange> </ referenceRange> </observation> </component> < component> <observation moodCode="EVN" classCode=" OBS"> <templateId root="2.16.840.1.138606.10.20.22.4.2& quot; /> <id nullFlavor="NA" /> <code codeSystem="local" code="MO%" displayName=" MONOCYTE %" /> <statusCode code="completed&quot ; /> <effectiveTime value="440486041313" /> <value unit="%" xsi:type="PQ" value="14& quot; /> <interpretationCode codeSystem="local" code=& quot;*" /> <referenceRange> < observationRange> <text>4-6</text> </ observationRange> </referenceRange> </observation&gt ; </component> <component> <observation moodCode ="EVN" classCode="OBS"> <templateId root=& quot;2.16.840.1.115376.10..22.4.2" /> <id nullFlavor=&quot ;NA" /> <code codeSystem="local" code="POLC& quot; displayName="POLYCHROMASIA" /> <statusCode code=& quot;completed" /> <effectiveTime value="472628918628& quot; /> <value unit="" xsi:type="PQ" value=& quot;NOTED" /> <referenceRange> < observationRange> <text /> </ observationRange> </referenceRange> </observation&gt ; </component> <component> <observation moodCode ="EVN" classCode="OBS"> <templateId root=& quot;2.16.840.1.788980.10..22.4.2" /> <id nullFlavor=&quot ;NA" /> <code codeSystem="local" code="RBC& quot; displayName="RED BLOOD CELL" /> <statusCode code= "completed" /> <effectiveTime value="667542865558& quot; /> <value unit="m/cumm" xsi:type="PQ" value="2.82" /> <interpretationCode codeSystem=" local" code="*" /> <referenceRange> <observationRange> <text>4.00-6.00</text> </observationRange> </referenceRange> </observation& gt; </component> <component> <observation moodCode="EVN" classCode="OBS"> <templateId root="2.16.840.1.764607.10.20.22.4.2" /> <id nullFlavor ="NA" /> <code codeSystem="local" code=" RDW" displayName="RED CELL DISTRIBUTION WIDTH" /> &lt ;statusCode code="completed" /> <effectiveTime value=& quot;782180123949" /> <value unit="%" xsi: type="PQ" value="19.4" /> < interpretationCode codeSystem="local" code="*" /> <referenceRange> <observationRange> <text& gt;11.0-15.6</text> </observationRange> </ referenceRange> </observation> </component> < component> <observation moodCode="EVN" classCode=" OBS"> <templateId root="2.16.840.1.501010.10..22.4.2& quot; /> <id nullFlavor="NA" /> <code codeSystem="local" code="SPH" displayName="SPHEROCYTES& quot; /> <statusCode code="completed" /> < effectiveTime value="097779720894" /> <value unit=&quot ;" xsi:type="PQ" value="NOTED" /> < referenceRange> <observationRange> <text /& gt; </observationRange> </referenceRange> </observation> </component> <component> &lt ;observation moodCode="EVN" classCode="OBS"> &lt ;templateId root="2.16.840.1.124020.10..22.4.2" /> < id nullFlavor="NA" /> <code codeSystem="local&quot ; code="WBC" displayName="WHITE BLOOD CELL" /> & lt;statusCode code="completed" /> <effectiveTime value= "208183576909" /> <value unit="k/cumm" xsi: type="PQ" value="5.4" /> <referenceRange> <observationRange> <text>5.0-10.0</text& gt; </observationRange> </referenceRange> </ observation> </component> <component> < observation moodCode="EVN" classCode="OBS"> < templateId root="2.16.840.1.279207.10.20.22.4.2" /> < id nullFlavor="NA" /> <code codeSystem="local&quot ; code="HGBT" displayName="HEMOGLOBIN" /> < statusCode code="completed" /> <effectiveTime value=& quot;263114687790" /> <value unit="gm/dL" xsi:type ="PQ" value="8.2" /> <interpretationCode codeSystem="local" code="*" /> < referenceRange> <observationRange> <text> 12.0-16.0</text> </observationRange> </ referenceRange> </observation> </component> < component> <observation moodCode="EVN" classCode=" OBS"> <templateId root="2.16.840.1.979360.10.20.22.4.2& quot; /> <id nullFlavor="NA" /> <code codeSystem="local" code="HCTT" displayName="HEMATOCRIT& quot; /> <statusCode code="completed" /> & lt;effectiveTime value="029772968846" /> <value unit=& quot;%" xsi:type="PQ" value="27.1" /> <interpretationCode codeSystem="local" code="*" /&gt ; <referenceRange> <observationRange> <text>37.0-47.0</text> </observationRange> </referenceRange> </observation> </component&gt ; <component> <observation moodCode="EVN" classCode="OBS"> <templateId root=" 2.16.840.1.337616.10.20.22.4.2" /> <id nullFlavor="NA& quot; /> <code codeSystem="local" code="PLT" displayName="PLATELET COUNT" /> <statusCode code=" completed" /> <effectiveTime value="345218498655" /> <value unit="k/cumm" xsi:type="PQ" value=& quot;150" /> <referenceRange> < observationRange> <text>150-400</text> & lt;/observationRange> </referenceRange> </ observation> </component> </organizer> </entry> & lt;entry> <organizer moodCode="EVN" classCode="BATTERY& quot;> <templateId root="2.16.840.1.631111.10.20.22.4.1" /& gt; <id nullFlavor="NA" /> <code codeSystem=" local" code="MORPH" displayName="MORPHOLOGY" /> <statusCode code="completed" /> <component> <observation moodCode="EVN" classCode="OBS"> <templateId root="2.16.840.1.902715.10.20.22.4.2" /> & lt;id nullFlavor="NA" /> <code codeSystem="local& quot; code="RMORPH" displayName="RBC MORPH" /> & lt;statusCode code="completed" /> <effectiveTime value= "047664769305" /> <value unit="" xsi:type="PQ& quot; value="Note" /> <referenceRange> & lt;observationRange> <text /> </ observationRange> </referenceRange> </observation&gt ; </component> </organizer> </entry> <entry> & lt;organizer moodCode="EVN" classCode="BATTERY"> &lt ;templateId root="2.16.840.1.939883.10.20.22.4.1" /> <id nullFlavor="NA" /> <code codeSystem="local" code= "METABC" displayName="METABOLIC PANEL, COMPREHN" /> <statusCode code="completed" /> <component> & lt;observation moodCode="EVN" classCode="OBS"> & lt;templateId root="2.16.840.1.479865.10.20.22.4.2" /> <id nullFlavor="NA" /> <code codeSystem="local" code="K" displayName="POTASSIUM" /> < statusCode code="completed" /> <effectiveTime value=& quot;645012832097" /> <value unit="mmol/L" xsi: type="PQ" value="4.0" /> <referenceRange> <observationRange> <text>3.5-5.3</text> </observationRange> </referenceRange> </ observation> </component> <component> < observation moodCode="EVN" classCode="OBS"> < templateId root="2.16.840.1.743960.10.20.22.4.2" /> < id nullFlavor="NA" /> <code codeSystem="local&quot ; code="eGFR" displayName="EST GFR (MDRD)" /> & lt;statusCode code="completed" /> <effectiveTime value= "326851814159" /> <value unit="mL/min" xsi: type="PQ" value="> 60" /> < referenceRange> <observationRange> <text> > 59</text> </observationRange> </ referenceRange> </observation> </component> < component> <observation moodCode="EVN" classCode=" OBS"><templateId root="2.16.840.1.274150.10.20.22.4.2" /&gt ; <id nullFlavor="NA" /> <code codeSystem=& quot;local" code="GAP" displayName="ANION GAP" /> <statusCode code="completed" /> < effectiveTime value="466094640616" /> <value unit=&quot ;mmol/L" xsi:type="PQ" value="11" /> < referenceRange> <observationRange> <text> 5-15</text> </observationRange> </ referenceRange> </observation> </component> < component> <observation moodCode="EVN" classCode=" OBS"> <templateId root="2.16.840.1.547392.10.20.22.4.2& quot; /> <id nullFlavor="NA" /><code codeSystem=& quot;local" code="eCrCl" displayName="EST CrCl (CG)" /& gt; <statusCode code="completed" /> < effectiveTime value="290990817555" /> <value unit=&quot ;mL/min" xsi:type="PQ" value="> 60" /> <referenceRange> <observationRange> <text> > 59</text> </observationRange> </ referenceRange> </observation> </component> < component> <observation moodCode="EVN" classCode=" OBS"> <templateId root="2.16.840.1.701650.10.20.22.4.2& quot; /> <id nullFlavor="NA" /> <code codeSystem="local" code="GLU" displayName="GLUCOSE&quot ; /> <statusCode code="completed" /> < effectiveTime value="776232132771" /> <value unit=&quot ;mg/dL" xsi:type="PQ" value="151"/> < interpretationCode codeSystem="local" code="*" />< referenceRange> <observationRange> <text> 70-99</text> </observationRange> </ referenceRange> </observation> </component> < component> <observation moodCode="EVN" classCode=" OBS"> <templateId root="2.16.840.1.299140.10.20.22.4.2& quot; /> <id nullFlavor="NA" /> <code codeSystem="local" code="CA" displayName="CALCIUM&quot ; /> <statusCode code="completed" /> < effectiveTime value="344599589679" /> <value unit=&quot ;mg/dL" xsi:type="PQ" value="8.9" /> < referenceRange> <observationRange> <text>8.5- 10.1</text> </observationRange> </ referenceRange> </observation> </component> < component> <observation moodCode="EVN" classCode=" OBS"> <templateId root="2.16.840.1.298235.10.20.22.4.2& quot; /> <id nullFlavor="NA" /> <code codeSystem="local" code="BUN" displayName="BLOOD UREA NITROGEN" /> <statusCode code="completed" /> <effectiveTime value="366756034672" /> <value unit="mg/dL" xsi:type="PQ" value="9" /> <referenceRange> <observationRange> < text>7-20</text> </observationRange> </ referenceRange> </observation> </component> < component> <observation moodCode="EVN" classCode=" OBS"> <templateId root="2.16.840.1.287763.10..22.4.2& quot; /> <id nullFlavor="NA" /> <code codeSystem="local" code="CREAT" displayName="CREATININE " /> <statusCode code="completed" /> & lt;effectiveTimevalue="295289543505" /> <value unit=& quot;mg/dL" xsi:type="PQ" value="0.5" /> & lt;interpretationCode codeSystem="local" code="*" /> <referenceRange> <observationRange> & lt;text>0.6-1.0</text> </observationRange> & lt;/referenceRange> </observation> </component> < component> <observation moodCode="EVN" classCode=" OBS"> <templateId root="2.16.840.1.630645.10.20.22.4.2& quot; /> <id nullFlavor="NA" /> <code codeSystem="local" code="NA" displayName="SODIUM" /> <statusCodecode="completed" /> < effectiveTime value="203301257257" /> <value unit="mmol /L" xsi:type="PQ" value="138" /> < referenceRange> <observationRange> <text> 135-148</text> </observationRange> </ referenceRange> </observation> </component> < component> <observation moodCode="EVN" classCode=" OBS"> <templateId root="2.16.840.1.974095.10.20.22.4.2& quot; /> <id nullFlavor="NA" /> <code codeSystem="local" code="CL" displayName="CHLORIDE&quot ; /> <statusCode code="completed" /> < effectiveTime value="451549525271" /> <value unit=&quot ;mmol/L" xsi:type="PQ" value="102" /> < referenceRange> <observationRange> <text>98 -110</text> </observationRange> </ referenceRange> </observation> </component> < component> <observation moodCode="EVN" classCode=" OBS"> <templateId root="2.16.840.1.919392.10.20.22.4.2& quot; /> <id nullFlavor="NA" /> <code codeSystem="local" code="AST" displayName="AST/SGOT& quot; /> <statusCode code="completed" /> & lt;effectiveTime value="478766238249" /> <value unit=& quot;Units/L" xsi:type="PQ" value="31" /> & lt;referenceRange> <observationRange> <text& gt;10-37</text> </observationRange> </referenceRange& gt; </observation> </component> <component> <observation moodCode="EVN" classCode="OBS"> <templateIdroot="2.16.840.1.866970.10.20.22.4.2" /> <id nullFlavor="NA" /> <code codeSystem=" local" code="ALT" displayName="ALT/SGPT" /> <statusCode code="completed" /> <effectiveTime value="681892244687" /> <value unit="Units/L&quot ; xsi:type="PQ" value="30" /> <referenceRange > <observationRange> <text>< 66</text> </observationRange> </referenceRange> < /observation> </component> <component> < observation moodCode="EVN" classCode="OBS"> < templateId root="2.16.840.1.317137.10.20.22.4.2" /> < id nullFlavor="NA" /> <code codeSystem="local&quot ; code="CO2" displayName="CARBON DIOXIDE" /> < statusCode code="completed" /> <effectiveTime value=& quot;186947267585" /> <value unit="mmol/L" xsi: type="PQ" value="25" /> <referenceRange> <observationRange> <text>21-32</text> </observationRange> </referenceRange> & lt;/observation> </component> <component> < observation moodCode="EVN" classCode="OBS"> < templateId root="2.16.840.1.201330.10.20.22.4.2" /> < id nullFlavor="NA" /> <code codeSystem="local&quot ; code="TP" displayName="TOTAL PROTEIN" /> < statusCode code="completed" /> <effectiveTime value=& quot;725800133607" /> <value unit="gm/dL" xsi:type=" PQ" value="5.8" /> <interpretationCode codeSystem= "local" code="*" /> <referenceRange> <observationRange> <text>6.4-8.2</text> </observationRange> </referenceRange> < /observation> </component> <component> < observation moodCode="EVN" classCode="OBS"> < templateId root="2.16.840.1.496793.10.20.22.4.2" /> < id nullFlavor="NA" /> <code codeSystem="local&quot ; code="ALB" displayName="ALBUMIN" /> < statusCode code="completed" /> <effectiveTime value=" 073963402999" /> <value unit="gm/dL" xsi:type=& quot;PQ" value="2.5" /> <interpretationCode codeSystem="local" code="*" /> < referenceRange> <observationRange> <text> 3.4-5.0</text> </observationRange> </ referenceRange> </observation> </component> < component> <observation moodCode="EVN" classCode=" OBS"> <templateId root="2.16.840.1.186434.10.20.22.4.2& quot; /> <id nullFlavor="NA" /> <code codeSystem= "local" code="BILTOT" displayName="BILI TOTAL" /& gt; <statusCode code="completed" /> < effectiveTime value="192343476343" /> <value unit=&quot ;mg/dL" xsi:type="PQ" value="0.6" /> < referenceRange> <observationRange> <text> 0.0-1.0</text> </observationRange> </ referenceRange> </observation> </component> < component> <observation moodCode="EVN" classCode=" OBS"> <templateId root="2.16.840.1.580279.10.20.22.4.2& quot; /> <id nullFlavor="NA" /> <code codeSystem="local" code="ALKP" displayName="ALKALINE PHOSPHATASE TOTAL" /> <statusCode code="completed" / > <effectiveTime value="914976233961" /> & lt;value unit="IU/L" xsi:type="PQ" value="173" /& gt; <interpretationCode codeSystem="local" code="*& quot; /> <referenceRange> <observationRange> <text>45-117</text> </observationRange> </referenceRange> </observation> </component& gt; </organizer> </entry> <entry> <organizer moodCode="EVN" classCode="BATTERY"> <templateId root="2.16.840.1.225111.10.20.22.4.1" /> <id nullFlavor=& quot;NA" /> <code codeSystem="local" code="GLUMON " displayName="GLUCOSE (POC)" /> <statusCode code=& quot;completed" /> <component> <observation moodCode="EVN" classCode="OBS"> <templateId root="2.16.840.1.452329.10.20.22.4.2" /> <id nullFlavor ="NA" /> <code codeSystem="local" code=" GLUMON" displayName="GLUCOSE (POC)" /> < statusCode code="completed" /> <effectiveTime value=& quot;034663436159" /> <value unit="mg/dL" xsi:type=" PQ" value="168" /> <interpretationCode codeSystem= "local" code="*" /> <referenceRange> <observationRange> <text>70-99</text> </observationRange> </referenceRange> </ observation> </component> </organizer> </entry> & lt;entry> <organizer moodCode="EVN" classCode="BATTERY& quot;> <templateId root="2.16.840.1.902901.10.20.22.4.1" /& gt; <id nullFlavor="NA" /> <code codeSystem=" local" code="GLUMON" displayName="GLUCOSE (POC)" /> <statusCode code="completed" /> <component> <observation moodCode="EVN" classCode="OBS"> <templateId root="216.840.1.343165.10.20.22.4.2" /> <id nullFlavor="NA" /> <code codeSystem=" local" code="GLUMON" displayName="GLUCOSE (POC)" /> <statusCode code="completed"/> < effectiveTime value="169091774185" /> <value unit=&quot ;mg/dL" xsi:type="PQ" value="176" /> < interpretationCode codeSystem="local" code="*" /> <referenceRange> <observationRange> < text>70-99</text> </observationRange> </ referenceRange> </observation> </component> </ organizer> </entry> <entry> <organizer moodCode="EVN " classCode="BATTERY"> <templateId root=" 2.16.840.1.427137.10.20.22.4.1" /> <id nullFlavor="NA&quot ; /> <code codeSystem="local" code="CBC" displayName="CBC" /> <statusCode code="completed&quot ; /> <component> <observation moodCode="EVN" classCode="OBS"> <templateId root=" 2.16.840.1.001222.10.20.22.4.2" /> <id nullFlavor="NA& quot; /> <code codeSystem="local" code="MCH" displayName="MEAN CELL HGB" /> <statusCode code=" completed" /> <effectiveTime value="723052902050" /> <value unit="pg" xsi:type="PQ" value=&quot ;25.3" /> <interpretationCode codeSystem="local" code="*" /> <referenceRange> < observationRange> <text>27.0-33.0</text> </observationRange> </referenceRange> </ observation> </component> <component> < observation moodCode="EVN" classCode="OBS"> < templateId root="2.16.840.1.965894.10.20.22.4.2" /> < id nullFlavor="NA" /> <code codeSystem="local&quot ; code="MCHC" displayName="MEAN CELL HGB CONCENTRATION" /&gt ;<statusCode code="completed" /> <effectiveTime value="818608362438" /> <value unit="g/dL" xsi:type="PQ" value="32.4" /> <referenceRange > <observationRange> <text>32.0-37.0</ text> </observationRange> </referenceRange> </observation> </component> <component> <observation moodCode="EVN" classCode="OBS"> <templateId root="2.16.840.1.664607.10.20.22.4.2" /> <id nullFlavor="NA" /> <code codeSystem=" local" code="MCV" displayName="MEAN CELL VOLUME" /> <statusCode code="completed" /> < effectiveTime value="924577010573" /> <value unit="fl " xsi:type="PQ" value="78.2" /> < interpretationCode codeSystem="local" code="*" /> <referenceRange> <observationRange> < text>80.0-100.0</text> </observationRange> </ referenceRange> </observation> </component> < component> <observation moodCode="EVN" classCode=" OBS"> <templateId root="2.16.840.1.521845.10.20.22.4.2& quot; /> <id nullFlavor="NA" /> <code codeSystem="local" code="RBC" displayName="RED BLOOD CELL" /> <statusCode code="completed" /> <effectiveTime value="142815146846" /> <value unit="m/cumm" xsi:type="PQ" value="5.37" /> <referenceRange> <observationRange> <text >4.00-6.00</text> </observationRange> </ referenceRange> </observation> </component> < component> <observation moodCode="EVN" classCode=" OBS"> <templateId root="2.16.840.1.980065.10.20.22.4.2& quot; /> <id nullFlavor="NA" /> <code codeSystem="local" code="RDW" displayName="RED CELL DISTRIBUTION WIDTH" /> <statusCode code="completed&quot ; /> <effectiveTime value="148516557963" /> <value unit="%" xsi:type="PQ" value="15.6& quot; /> <referenceRange> <observationRange> <text>11.0-15.6</text> </observationRange&gt ; </referenceRange> </observation> </ component> <component> <observation moodCode="EVN& quot; classCode="OBS"> <templateId root=" [id number]" /> <id nullFlavor="NA& quot; /> <code codeSystem="local" code="WBC" displayName="WHITE BLOOD CELL" /> <statusCode code=& quot;completed" /> <effectiveTime value="[id number]" /> <value unit="k/cumm" xsi:type="PQ" value=& quot;7.8" /> <referenceRange> < observationRange> <text>5.0-10.0</text> & lt;/observationRange> </referenceRange> </ observation> </component> <component> < observation moodCode="EVN" classCode="OBS"> < templateId root="2.16.840.1.444747.10.20.22.4.2" /> < id nullFlavor="NA" /> <code codeSystem="local&quot ; code="HGBT" displayName="HEMOGLOBIN" /> < statusCode code="completed" /> <effectiveTime value=& quot;468998956572" /> <value unit="gm/dL" xsi:type ="PQ" value="13.6" /> <referenceRange> <observationRange> <text>12.0-16.0</text&gt ; </observationRange> </referenceRange> & lt;/observation> </component> <component> < observation moodCode="EVN" classCode="OBS"> < templateId root="2.16.840.1.119818.10.20.22.4.2" /> < id nullFlavor="NA" /> <code codeSystem="local" code="HCTT" displayName="HEMATOCRIT" /> < statusCode code="completed" /> <effectiveTime value=& quot;484243173992" /> <value unit="%" xsi: type="PQ" value="42.0" /> <referenceRange&gt ; <observationRange> <text>37.0-47.0</text> </observationRange> </referenceRange> </ observation> </component> <component> < observation moodCode="EVN" classCode="OBS"> < templateId root="2.16.840.1.125166.10.20.22.4.2" /> < id nullFlavor="NA" /> <code codeSystem="local&quot ; code="PLT" displayName="PLATELET COUNT" /> < statusCode code="completed" /> <effectiveTime value=& quot;983966555370" /> <value unit="k/cumm" xsi: type="PQ" value="219" /> <referenceRange> <observationRange> <text>150-400</text& gt; </observationRange> </referenceRange> </observation> </component> </organizer> </entry > <entry> <organizer moodCode="EVN" classCode=" BATTERY"> <templateId root="2.16.840.1.756347.10.20.22.4.1& quot; /> <id nullFlavor="NA" /> <code codeSystem ="local" code="METAB" displayName="METABOLIC PANEL, BASIC" /> <statusCode code="completed" /> < component> <observation moodCode="EVN" classCode=" OBS"> <templateId root="2.16.840.1.381540.10.20.22.4.2& quot; /> <id nullFlavor="NA" /> < codecodeSystem="local" code="K" displayName="POTASSIUM& quot; /> <statusCode code="completed" /> & lt;effectiveTime value="992591959511" /> <value unit=& quot;mmol/L" xsi:type="PQ" value="3.7" /> & lt;referenceRange> <observationRange> <text& gt;3.5-5.3</text> </observationRange> </ referenceRange> </observation> </component> < component> <observation moodCode="EVN" classCode=" OBS"> <templateId root="2.16.840.1.405236.10.20.22.4.2& quot; /> <id nullFlavor="NA" /> <code codeSystem="local" code="eGFR" displayName="EST GFR ( MDRD)" /> <statusCode code="completed" /> <effectiveTime value="919591367890" /> <value unit=&quot ;mL/min" xsi:type="PQ" value="> 60" /> < referenceRange> <observationRange> <text> > 59</text> </observationRange> </ referenceRange> </observation> </component> < component> <observation moodCode="EVN" classCode=" OBS"> <templateId root="2.16.840.1.574628.10.20.22.4.2& quot; /> <id nullFlavor="NA" /> <code codeSystem="local" code="GAP" displayName="ANION GAP& quot; /> <statusCode code="completed" /> & lt;effectiveTime value="808887664000" /> <value unit=& quot;mmol/L" xsi:type="PQ" value="10" /> & lt;referenceRange> <observationRange> <text& gt;5-15</text> </observationRange> </ referenceRange> </observation> </component> < component> <observation moodCode="EVN" classCode=" OBS"> <templateId root="2.16.840.1.178975.10.20.22.4.2& quot; /> <idnullFlavor="NA" /> <code codeSystem="local" code="GLU" displayName="GLUCOSE&quot ; /> <statusCode code="completed" /> < effectiveTime value="112068434712" /> <value unit=&quot ;mg/dL" xsi:type="PQ" value="263" /> < interpretationCode codeSystem="local" code="*" /> <referenceRange> <observationRange> < text>70-99</text> </observationRange> </ referenceRange> </observation> </component> < component> <observation moodCode="EVN" classCode=" OBS"> <templateId root="2.16.840.1.922778.10..22.4.2& quot; /> <id nullFlavor="NA" /><code codeSystem=& quot;local" code="CA" displayName="CALCIUM" /> & lt;statusCode code="completed" /> <effectiveTime value= "199028632353" /> <value unit="mg/dL" xsi: type="PQ" value="9.6" /> <referenceRange> <observationRange> <text>8.5-10.1</text& gt; </observationRange> </referenceRange> </observation> </component> <component> &lt ;observation moodCode="EVN" classCode="OBS"> &lt ;templateId root="2.16.840.1.358222.10..22.4.2" /> < id nullFlavor="NA" /> <code codeSystem="local&quot ; code="BUN" displayName="BLOOD UREA NITROGEN" /> <statusCode code="completed" /> <effectiveTime value="907013105053" /> <value unit="mg/dL" xsi:type="PQ" value="10" /> <referenceRange> <observationRange> <text>7-20</text> </observationRange> </referenceRange> < /observation> </component> <component> < observation moodCode="EVN" classCode="OBS"> < templateId root="2.16.840.1.845954.10.20.22.4.2" /> < id nullFlavor="NA" /> <code codeSystem="local&quot ; code="CREAT" displayName="CREATININE" /> < statusCode code="completed" /> <effectiveTime value=& quot;930065593932" /> <valueunit="mg/dL" xsi:type= "PQ" value="0.9" /> <referenceRange> <observationRange> <text>0.6-1.0</text> </observationRange> </referenceRange> < /observation> </component> <component> < observation moodCode="EVN" classCode="OBS"> < templateId root="2..840.1.631304.10.20.22.4.2" /> < id nullFlavor="NA" /> <code codeSystem="local&quot ; code="NA" displayName="SODIUM" /> < statusCode code="completed" /> <effectiveTime value=" 208631909740" /> <value unit="mmol/L" xsi:type=& quot;PQ" value="138" /> <referenceRange> <observationRange> <text>135-148</text> </observationRange> </referenceRange> </ observation> </component> <component> < observation moodCode="EVN" classCode="OBS"> < templateId root="2.16.840.1.392686.10.20.22.4.2" /> < id nullFlavor="NA" /> <code codeSystem="local&quot ; code="CL" displayName="CHLORIDE" /> < statusCode code="completed" /> <effectiveTime value=& quot;436570710097" /> <value unit="mmol/L" xsi: type="PQ" value="103" /> <referenceRange> <observationRange> <text>98-110</text> </observationRange> </referenceRange> </ observation> </component> <component> < observation moodCode="EVN" classCode="OBS"> < templateId root="2.16.840.1.860486.10.20.22.4.2" /> < id nullFlavor="NA" /> <code codeSystem="local&quot ; code="CO2" displayName="CARBON DIOXIDE" /> < statusCode code="completed" /> <effectiveTime value=& quot;146215272064" /> <value unit="mmol/L" xsi: type="PQ" value="25" /> <referenceRange> <observationRange> <text>21-32</text> </observationRange> </referenceRange> & lt;/observation> </component> </organizer> </entry&gt ; <entry> <organizer moodCode="EVN" classCode=" BATTERY"> <templateId root="2.16.840.1.066530.10.20.22.4.1& quot; /> <id nullFlavor="NA" /> <code codeSystem ="local" code="GLUMON" displayName="GLUCOSE (POC)&quot ; /><statusCode code="completed" /> <component> <observation moodCode="EVN" classCode="OBS"> <templateId root="2.16.840.1.570947.10.20.22.4.2" /> <id nullFlavor="NA" /> <code codeSystem=" local" code="GLUMON" displayName="GLUCOSE (POC)" /> <statusCode code="completed" /> < effectiveTime value="092228947440"/> <value unit=" mg/dL" xsi:type="PQ" value="170" /> < interpretationCode codeSystem="local" code="*" /> <referenceRange> <observationRange> < text>70-99</text> </observationRange> </ referenceRange> </observation> </component> </ organizer> </entry> <entry> <organizer moodCode="EVN " classCode="BATTERY"> <templateId root=" 2.16.840.1.923400.10.20.22.4.1" /> <id nullFlavor="NA&quot ; /> <code codeSystem="local" code="GLUMON" displayName="GLUCOSE (POC)" /> <statusCode code=" completed" /> <component> <observation moodCode=& quot;EVN" classCode="OBS"> <templateId root=" 2.16.840.1.870601.10.20.22.4.2" /> <id nullFlavor="NA& quot; /> <code codeSystem="local" code="GLUMON& quot; displayName="GLUCOSE (POC)" /> <statusCode code=& quot;completed" /> <effectiveTime value="160302609827& quot; /> <valueunit="mg/dL" xsi:type="PQ" value="163" /> <interpretationCode codeSystem=" local" code="*" /> <referenceRange> < observationRange> <text>70-99</text> < /observationRange> </referenceRange> </observation& gt; </component> </organizer> </entry> <entry&gt ; <organizer moodCode="EVN" classCode="BATTERY"> <templateId root="2.16.840.1.556993.10.20.22.4.1" /> & lt;id nullFlavor="NA" /> <code codeSystem="local&quot ; code="CBC" displayName="CBC" /> <statusCode code="completed" /> <component> <observation moodCode="EVN" classCode="OBS"> <templateId root="2.16.840.1.260512.10.20.22.4.2" /> <id nullFlavor ="NA" /> <code codeSystem="local" code=" MCH" displayName="MEANCELL HGB" /> <statusCode code="completed" /> <effectiveTime value=" 299406862988" /> <value unit="pg" xsi:type=" PQ" value="24.7" /> <interpretationCode codeSystem ="local" code="*" /> <referenceRange> <observationRange> <text>27.0-33.0</text&gt ; </observationRange> </referenceRange> & lt;/observation> </component> <component> < observation moodCode="EVN" classCode="OBS"> < templateId root="2.16.840.1.298223.10..22.4.2" /> < id nullFlavor="NA" /> <code codeSystem="local&quot ; code="MCHC" displayName="MEAN CELL HGB CONCENTRATION" /&gt ; <statusCode code="completed" /> < effectiveTime value="195377906261" /> <value unit=&quot ;g/dL" xsi:type="PQ" value="32.4" /> < referenceRange> <observationRange> <text> 32.0-37.0</text> </observationRange> </ referenceRange> </observation> </component> < component> <observation moodCode="EVN" classCode=" OBS"> <templateId root="2.16.840.1.585461.10..22.4.2& quot; /> <id nullFlavor="NA" /> <code codeSystem="local" code="MCV" displayName="MEAN CELL VOLUME" /> <statusCode code="completed" /> <effectiveTime value="053898283948" /> <value unit="fl" xsi:type="PQ" value="76.1" /> <interpretationCode codeSystem="local" code="*" /> <referenceRange> <observationRange> <text>80.0-100.0</text> </observationRange> </referenceRange> </observation> </component> <component> <observation moodCode="EVN" classCode="OBS"> <templateId root=" 2.16.840.1.979339.10.20.22.4.2" /> <id nullFlavor="NA& quot; /> <code codeSystem="local" code="RBC" displayName="RED BLOOD CELL" /> <statusCode code=" completed" /> <effectiveTime value="878923643774" /> <value unit="m/cumm" xsi:type="PQ" value=& quot;5.23" /> <referenceRange> < observationRange> <text>4.00-6.00</text></ observationRange> </referenceRange> </observation&gt ; </component> <component> <observation moodCode ="EVN" classCode="OBS"> <templateId root=& quot;2.16.840.1.280391.10.20.22.4.2" /> <id nullFlavor=&quot ;NA" /> <code codeSystem="local" code="RDW& quot; displayName="RED CELL DISTRIBUTION WIDTH" /> < statusCode code="completed" /> <effectiveTime value=& quot;705992779642" /> <value unit="%" xsi: type="PQ" value="19.7" /> < interpretationCode codeSystem="local" code="*" /> <referenceRange> <observationRange> <text> 11.0-15.6</text> </observationRange> </ referenceRange> </observation> </component> < component> <observation moodCode="EVN" classCode=" OBS"> <templateId root="2.16.840.1.494287.10.20.22.4.2& quot; /> <id nullFlavor="NA" /> <code codeSystem="local" code="WBC" displayName="WHITE BLOOD CELL" /> <statusCode code="completed" /> < effectiveTime value="986308383935" /> <value unit=&quot ;k/cumm" xsi:type="PQ" value="7.8" /> < referenceRange> <observationRange> <text> 5.0-10.0</text> </observationRange> </ referenceRange> </observation> </component> < component> <observation moodCode="EVN" classCode=" OBS"> <templateId root="2.16.840.1.200890.10.20.22.4.2& quot; /> <id nullFlavor="NA" /> <code codeSystem="local" code="HGBT" displayName="HEMOGLOBIN& quot; /> <statusCode code="completed" /> & lt;effectiveTime value="487921927089" /> <value unit=& quot;gm/dL" xsi:type="PQ" value="12.9" /> & lt;referenceRange> <observationRange> <text& gt;12.0-16.0</text> </observationRange> </ referenceRange> </observation> </component> < component> <observation moodCode="EVN" classCode=" OBS"> <templateId root="2.16.840.1.901483.10.20.22.4.2& quot; /> <id nullFlavor="NA" /> <code codeSystem ="local" code="HCTT" displayName="HEMATOCRIT" /&gt ; <statusCode code="completed" /> < effectiveTime value="606863591516" /> <value unit=&quot ;%" xsi:type="PQ" value="39.8" /> & lt;referenceRange> <observationRange><text>37.0-47.0& lt;/text> </observationRange> </referenceRange& gt; </observation> </component> <component> <observation moodCode="EVN" classCode="OBS"> <templateId root="2.16.840.1.463221.10.20.22.4.2" /> <id nullFlavor="NA" /> <code codeSystem=&quot ;local" code="PLT" displayName="PLATELET COUNT" /> & lt;statusCode code="completed" /> <effectiveTime value= "740029518688" /> <value unit="k/cumm" xsi: type="PQ" value="252"/> <referenceRange> <observationRange> <text>150-400</text&gt ; </observationRange> </referenceRange> & lt;/observation> </component> </organizer> </entry&gt ; <entry> <organizer moodCode="EVN" classCode=" BATTERY"> <templateId root="2.16.840.1.938408.10.20.22.4.1& quot; /> <id nullFlavor="NA" /> <code codeSystem ="local" code="METAB" displayName="METABOLIC PANEL, BASIC" /> <statusCode code="completed" /> < component> <observationmoodCode="EVN" classCode="OBS "> <templateId root="2.16.840.1.714801.10.20.22.4.2& quot; /> <id nullFlavor="NA" /> <code codeSystem="local" code="K" displayName="POTASSIUM&quot ; /> <statusCode code="completed" /> < effectiveTime value="543263830880" /> <value unit=&quot ;mmol/L" xsi:type="PQ" value="4.0" /> < referenceRange> <observationRange> <text> 3.5-5.3</text> </observationRange> </ referenceRange> </observation> </component> < component> <observation moodCode="EVN" classCode=" OBS"> <templateId root="2.16.840.1.149543.10.20.22.4.2& quot; /> <id nullFlavor="NA" /> <code codeSystem="local" code="eGFR" displayName="EST GFR ( MDRD)" /> <statusCode code="completed" /> <effectiveTime value="507053060375" /> <value unit="mL/min" xsi:type="PQ" value="> 60" /& gt;<referenceRange> <observationRange> < text>> 59</text> </observationRange> & lt;/referenceRange> </observation> </component> <component> <observation moodCode="EVN" classCode=& quot;OBS"> <templateId root=" 2.16.840.1.500388.10.20.22.4.2"/> <id nullFlavor="NA& quot; /> <code codeSystem="local"code="GAP" displayName="ANION GAP" /> <statusCode code=" completed" /> <effectiveTime value="016098238704" /> <value unit="mmol/L" xsi:type="PQ" value=& quot;10" /> <referenceRange> < observationRange> <text>5-15</text> </ observationRange> </referenceRange> </observation&gt ; </component> <component> <observation moodCode ="EVN" classCode="OBS"> <templateId root=& quot;2.16.840.1.242398.10.20.22.4.2" /> <id nullFlavor=&quot ;NA" /> <code codeSystem="local" code="GLU& quot; displayName="GLUCOSE" /> <statusCode code=" completed" /> <effectiveTime value="265544309666" /> <value unit="mg/dL" xsi:type="PQ" value=& quot;220" /> <interpretationCode codeSystem="local&quot ; code="*" /> <referenceRange> < observationRange> <text>70-99</text> </ observationRange> </referenceRange> </observation&gt ; </component> <component> <observation moodCode ="EVN" classCode="OBS"> <templateId root=& quot;2.16.840.1.696998.10.20.22.4.2" /> <id nullFlavor=&quot ;NA" /> <code codeSystem="local" code="CA& quot; displayName="CALCIUM" /> <statusCode code="completed& quot; /> <effectiveTime value="412511965354" /> <value unit="mg/dL" xsi:type="PQ" value="9.5& quot; /> <referenceRange> <observationRange> <text>8.5-10.1</text> </observationRange > </referenceRange> </observation> </ component> <component> <observation moodCode="EVN& quot; classCode="OBS"> <templateId root=" 2.16.840.1.597188.10.20.22.4.2" /> <id nullFlavor="NA& quot; /> <code codeSystem="local" code="BUN" displayName="BLOOD UREA NITROGEN" /> <statusCode code=& quot;completed" /> <effectiveTime value="907494375328& quot; /> <value unit="mg/dL" xsi:type="PQ" value="8" /> <referenceRange> <observationRange > <text>7-20</text> </observationRange > </referenceRange> </observation> </ component> <component> <observation moodCode="EVN& quot; classCode="OBS"> <templateId root=" 2.16.840.1.146185.10.20.22.4.2" /> <id nullFlavor="NA& quot; /> <code codeSystem="local" code="CREAT&quot ; displayName="CREATININE" /> <statusCode code=" completed" /> <effectiveTime value="274041896908" /> <value unit="mg/dL" xsi:type="PQ" value=& quot;0.6" /> <referenceRange> < observationRange> <text>0.6-1.0</text> & lt;/observationRange> </referenceRange> </ observation> </component> <component> < observation moodCode="EVN" classCode="OBS"> < templateId root="2.16.840.1.006761.10.20.22.4.2" /> < id nullFlavor="NA" /> <code codeSystem="local&quot ; code="NA" displayName="SODIUM" /> < statusCode code="completed" /> <effectiveTime value=& quot;140027565419" /> <value unit="mmol/L" xsi: type="PQ" value="135" /> <referenceRange> <observationRange> <text>135-148</text& gt; </observationRange> </referenceRange> </ observation> </component> <component> < observation moodCode="EVN" classCode="OBS"> < templateId root="2.16.840.1.036131.10.20.22.4.2" /> < id nullFlavor="NA" /> <code codeSystem="local&quot ; code="CL" displayName="CHLORIDE" /> < statusCode code="completed" /> <effectiveTime value=& quot;636477496738" /> <value unit="mmol/L" xsi: type="PQ" value="102" /> <referenceRange> <observationRange> <text>98-110</text> </observationRange> </referenceRange> </ observation> </component> <component> < observation moodCode="EVN" classCode="OBS"> < templateId root="2.16.840.1.122183.10.20.22.4.2" /> < id nullFlavor="NA" /> <code codeSystem="local&quot ; code="CO2" displayName="CARBON DIOXIDE" /> < statusCode code="completed" /> <effectiveTime value=& quot;809462544084" /> <value unit="mmol/L" xsi: type="PQ" value="23" /> <referenceRange> <observationRange> <text>21-32</text> </observationRange> </referenceRange> & lt;/observation> </component> </organizer> </entry&gt ; <entry> <organizer moodCode="EVN" classCode=" BATTERY"> <templateId root="2.16.840.1.492118.10.20.22.4.1& quot; /> <id nullFlavor="NA" /> <code codeSystem ="local" code="GLUMON" displayName="GLUCOSE (POC)&quot ; /> <statusCode code="completed" /> <component& gt; <observation moodCode="EVN" classCode="OBS"&gt ; <templateId root="2.16.840.1.408927.10.20.22.4.2" /> <id nullFlavor="NA" /> <code codeSystem=& quot;local" code="GLUMON" displayName="GLUCOSE (POC)" / > <statusCode code="completed" /> < effectiveTime value="130974684184" /> <value unit=&quot ;mg/dL" xsi:type="PQ" value="237" /> < interpretationCode codeSystem="local" code="*" /> <referenceRange> <observationRange> < text>70-99</text> </observationRange> </ referenceRange> </observation> </component> </ organizer> </entry> <entry> <organizer moodCode="EVN " classCode="BATTERY"> <templateId root=" 2.16.840.1.982747.10.20.22.4.1" /> <id nullFlavor="NA&quot ; /> <code codeSystem="local" code="CYTO" displayName="FLUID CYTOLOGY" /> <statusCode code=" completed" /> <component> <observation moodCode=& quot;EVN" classCode="OBS"> <templateId root=" 2.16.840.1.975233.10.20.22.4.2" /> <id nullFlavor="NA" / > <code codeSystem="local" code="CYTO" displayName="FLUID CYTOLOGY" /> <statusCode code=" completed" /> <effectiveTime value="012376899354" /> <value unit="" xsi:type="PQ" value=" SPECIMEN RECEIVED" /> <referenceRange> < observationRange> <text /> </ observationRange> </referenceRange> </observation&gt ; </component> </organizer> </entry> <entry> <organizer moodCode="EVN" classCode="BATTERY"> <templateId root="2.16.840.1.360772.10.20.22.4.1" /> < id nullFlavor="NA" /> <code codeSystem="local" code="GLUMON" displayName="GLUCOSE (POC)" /> < statusCode code="completed" /> <component> < observation moodCode="EVN" classCode="OBS"> < templateId root="2.16.840.1.543791.10.20.22.4.2" /> < id nullFlavor="NA" /> <code codeSystem="local&quot ; code="GLUMON" displayName="GLUCOSE (POC)" /> & lt;statusCode code="completed" /> <effectiveTime value=" 936241210378" /> <value unit="mg/dL"xsi:type=&quot ;PQ" value="269" /> <interpretationCode codeSystem ="local" code="*" /> <referenceRange> <observationRange> <text>70-99</text> </observationRange> </referenceRange> </ observation> </component> </organizer> </entry> & lt;entry> <organizer moodCode="EVN" classCode="BATTERY& quot;> <templateId root="2.16.840.1.689306.10.20.22.4.1" /> <id nullFlavor="NA" /> <code codeSystem="local " code="GLUMON" displayName="GLUCOSE (POC)" /> <statusCode code="completed" /> <component> < observation moodCode="EVN" classCode="OBS"> < templateId root="2.16.840.1.387058.10.20.22.4.2" /> < id nullFlavor="NA" /> <code codeSystem="local&quot ; code="GLUMON" displayName="GLUCOSE (POC)" /> & lt;statusCode code="completed" /> <effectiveTime value= "058923821319" /> <value unit="mg/dL" xsi: type="PQ" value="296" /> <interpretationCode codeSystem="local" code="*" /> < referenceRange> <observationRange> <text> 70-99</text> </observationRange> </ referenceRange> </observation> </component> </ organizer> </entry> <entry> <organizer moodCode="EVN " classCode="BATTERY"> <templateId root=" 2.16.840.1.371436.10.20.22.4.1" /> <id nullFlavor="NA&quot ; /> <code codeSystem="local" code="GLUMON" displayName="GLUCOSE (POC)" /> <statusCode code=" completed" /> <component> <observation moodCode=& quot;EVN" classCode="OBS"> <templateId root=" 2.16.840.1.440090.10.20.22.4.2" /> <id nullFlavor="NA& quot; /> <code codeSystem="local" code="GLUMON& quot; displayName="GLUCOSE (POC)" /> <statusCode code=& quot;completed" /> <effectiveTime value="645618349767& quot; /> <value unit="mg/dL" xsi:type="PQ" value="270" /> <interpretationCode codeSystem=" local" code="*" /> <referenceRange> <observationRange> <text>70-99</text> &lt ;/observationRange> </referenceRange> </observation& gt;</component> </organizer> </entry> <entry> & lt;organizer moodCode="EVN" classCode="BATTERY"> &lt ;templateId root="2.16.840.1.470146.10.20.22.4.1" /> <id nullFlavor="NA" /> <code codeSystem="local" code= "HH" displayName="HGB HCT" /> <statusCode code= "completed" /> <component> <observation moodCode="EVN" classCode="OBS"> <templateId root="2.16.840.1.096769.10.20.22.4.2" /> <id nullFlavor=&quot ;NA" /> <code codeSystem="local" code="MCV& quot; displayName="MEAN CELL VOLUME" /> <statusCode code="completed" /> <effectiveTime value=" 729758685948" /> <value unit="fl" xsi:type=" PQ" value="75.5" /> <interpretationCode codeSystem ="local" code="*" /> <referenceRange> <observationRange> <text>80.0-100.0</text&gt ; </observationRange> </referenceRange> & lt;/observation> </component> <component> < observation moodCode="EVN" classCode="OBS"> < templateId root="2.16.840.1.168654.10.20.22.4.2" /> < id nullFlavor="NA" /> <code codeSystem="local&quot ; code="HGBT" displayName="HEMOGLOBIN" /> < statusCode code="completed" /> <effectiveTime value=& quot;769499382549" /> <value unit="gm/dL" xsi:type ="PQ" value="13.2" /> <referenceRange> <observationRange> <text>12.0-16.0</text&gt ; </observationRange> </referenceRange> & lt;/observation> </component> <component> < observation moodCode="EVN" classCode="OBS"> < templateId root="2.16.840.1.915084.10.20.22.4.2" /> < id nullFlavor="NA" /> <code codeSystem="local" code="HCTT" displayName="HEMATOCRIT"/> < statusCode code="completed" /> <effectiveTime value=& quot;714147589184" /> <value unit="%" xsi: type="PQ" value="40.3" /> <referenceRange&gt ; <observationRange> <text>37.0-47.0</text> </observationRange> </referenceRange> </ observation> </component> </organizer> </entry> & lt;entry> <organizer moodCode="EVN" classCode="BATTERY& quot;> <templateId root="2.16.840.1.198450.10.20.22.4.1" /& gt; <id nullFlavor="NA" /> <code codeSystem=" local" code="GLUMON" displayName="GLUCOSE (POC)" /> <statusCode code="completed" /> <component> <observation moodCode="EVN" classCode="OBS"> <templateId root="[id number]" /> <id nullFlavor="NA" /><code codeSystem="local&quot ; code="GLUMON" displayName="GLUCOSE (POC)" /> & lt;statusCode code="completed" /> <effectiveTime value= "[id number]" /> <value unit="mg/dL" xsi: type="PQ" value="216" /> <interpretationCode codeSystem="local" code="*" /> < referenceRange> <observationRange> <text> 70-99</text> </observationRange> </ referenceRange> </observation> </component> </ organizer> </entry> <entry> <organizer moodCode="EVN " classCode="BATTERY"> <templateId root=" 2.16.840.1.692962.10.20.22.4.1" /> <id nullFlavor="NA&quot ; /> <code codeSystem="local" code="GLUMON" displayName="GLUCOSE (POC)" /> <statusCode code=" completed" /> <component> <observation moodCode=& quot;EVN" classCode="OBS"> <templateId root=" 2.16.840.1.609257.10.20.22.4.2" /> <id nullFlavor="NA& quot; /> <code codeSystem="local" code="GLUMON& quot; displayName="GLUCOSE (POC)" /> <statusCode code=& quot;completed" /> <effectiveTime value="070334911932& quot; /> <value unit="mg/dL" xsi:type="PQ" value="170" /> <interpretationCode codeSystem="local&quot ; code="*" /> <referenceRange> < observationRange> <text>70-99</text></ observationRange> </referenceRange> </observation&gt ; </component> </organizer> </entry> <entry> <organizer moodCode="EVN" classCode="BATTERY"> <templateId root="2.16.840.1.299335.10.20.22.4.1" /> < id nullFlavor="NA" /> <code codeSystem="local" code="GLUMON" displayName="GLUCOSE (POC)" /> < statusCode code="completed" /> <component> < observation moodCode="EVN" classCode="OBS"> < templateId root="2.16.840.1.906559.10.20.22.4.2" /> <id nullFlavor="NA" /> <code codeSystem="local" code="GLUMON" displayName="GLUCOSE (POC)" /> &lt ;statusCode code="completed" /> <effectiveTime value=& quot;938526038759" /> <value unit="mg/dL" xsi:type ="PQ" value="242" /> < interpretationCodecodeSystem="local" code="*" /> <referenceRange> <observationRange> < text>70-99</text> </observationRange> </ referenceRange> </observation> </component> </ organizer> </entry> <entry> <organizer moodCode="EVN " classCode="BATTERY"> <templateId root=" 2.16.840.1.512857.10.20.22.4.1" /> <id nullFlavor="NA&quot ; /> <code codeSystem="local" code="GLUMON" displayName="GLUCOSE (POC)" /> <statusCode code=" completed" /> <component> <observation moodCode=& quot;EVN" classCode="OBS"> <templateId root=" 2.16.840.1.613020.10.20.22.4.2" /> <id nullFlavor="NA& quot; /> <code codeSystem="local" code="GLUMON& quot; displayName="GLUCOSE (POC)" /> <statusCode code=& quot;completed" /> <effectiveTime value="577019692200& quot; /> <value unit="mg/dL" xsi:type="PQ" value="216" /> <interpretationCode codeSystem=" local" code="*" /> <referenceRange> <observationRange> <text>70-99</text> </ observationRange> </referenceRange> </observation&gt ; </component> </organizer> </entry> <entry> <organizer moodCode="EVN" classCode="BATTERY"> <templateId root="2.16.840.1.604512.10.20.22.4.1" /> < id nullFlavor="NA" /> <code codeSystem="local" code="GLUMON" displayName="GLUCOSE (POC)" /> < statusCode code="completed" /> <component> < observation moodCode="EVN" classCode="OBS"> < templateId root="2.16.840.1.025991.10.20.22.4.2" /> < id nullFlavor="NA" /> <code codeSystem="local" code=& quot;GLUMON" displayName="GLUCOSE (POC)"/> < statusCode code="completed" /> <effectiveTime value=& quot;555036216024" /> <value unit="mg/dL" xsi:type ="PQ" value="205" /> <interpretationCode codeSystem="local" code="*" /> < referenceRange> <observationRange> <text> 70-99</text> </observationRange> </ referenceRange> </observation> </component> </ organizer> </entry> <entry> <organizer moodCode="EVN " classCode="BATTERY"> <templateId root=" 2.16.840.1.833006.10.20.22.4.1" /> <id nullFlavor="NA&quot ; /> <code codeSystem="local" code="GLUMON" displayName="GLUCOSE (POC)" /> <statusCode code=" completed" /> <component> <observation moodCode=& quot;EVN" classCode="OBS"> <templateId root=" 2.16.840.1.723713.10.20.22.4.2" /> <id nullFlavor="NA& quot; /> <code codeSystem="local" code="GLUMON& quot; displayName="GLUCOSE (POC)" /> <statusCode code=& quot;completed" /> <effectiveTime value="064429982438& quot; /> <value unit="mg/dL" xsi:type="PQ" value="219" /> <interpretationCode codeSystem="local&quot ; code="*" /> <referenceRange> < observationRange> <text>70-99</text> </ observationRange> </referenceRange> </observation&gt ; </component> </organizer> </entry> <entry> <organizer moodCode="EVN" classCode="BATTERY"> <templateId root="2.16.840.1.967798.10.20.22.4.1" /> < id nullFlavor="NA" /> <code codeSystem="local" code="CBCD" displayName="CBC W/DIFF" /> < statusCode code="completed" /> <component> < observation moodCode="EVN" classCode="OBS"> < templateId root="2.16.840.1.472640.10.20.22.4.2" /> < id nullFlavor="NA" /> <code codeSystem="local&quot ; code="CBCCOM" displayName="COMMENT" /> < statusCode code="completed" /> <effectiveTime value=& quot;138996380584" /> <value unit="" xsi:type=& quot;PQ" value="REVIEWED" /> <referenceRange> & lt;observationRange> <text /> </ observationRange> </referenceRange> </observation&gt ; </component> <component> <observation moodCode=& quot;EVN" classCode="OBS"> <templateId root=" 2.16.840.1.803809.10.20.22.4.2" /> <id nullFlavor="NA& quot; /> <code codeSystem="local" code="EO#" displayName="EOSINOPHIL #" /> <statusCode code=" completed" /> <effectiveTime value="114534779177" /> <value unit="k/cumm" xsi:type="PQ" value=& quot;0.1" /> <referenceRange> < observationRange> <text>0.1-0.5</text> </ observationRange> </referenceRange> </observation&gt ; </component> <component> <observation moodCode ="EVN" classCode="OBS"> <templateId root=& quot;2.16.840.1.556034.10.20.22.4.2" /> <id nullFlavor=&quot ;NA" /> <code codeSystem="local" code="EO&amp ;#37;" displayName="EOSINOPHIL %" /> < statusCode code="completed" /> <effectiveTime value=& quot;007359821058" /> <value unit="%" xsi: type="PQ" value="1" /> <interpretationCode codeSystem="local" code="*" /> < referenceRange> <observationRange> <text> 2-4</text> </observationRange> </ referenceRange> </observation> </component> < component> <observation moodCode="EVN" classCode=" OBS"> <templateId root="2.16.840.1.365544.10.20.22.4.2& quot; /> <id nullFlavor="NA" /> <code codeSystem="local" code="GR#" displayName="GRANULOCYTE #" /> <statusCode code="completed" /> <effectiveTime value="169183167517" /> <value unit="k/ cumm" xsi:type="PQ" value="7.9" /> < referenceRange> <observationRange> <text> 2.0-9.0</text> </observationRange> </ referenceRange> </observation> </component> < component> <observation moodCode="EVN" classCode=" OBS"> <templateId root="2.16.840.1.899909.10.20.22.4.2& quot; /> <id nullFlavor="NA" /> <code codeSystem="local" code="GR%" displayName=" GRANULOCYTE %" /> <statusCode code="completed& quot; /> <effectiveTime value="951746511569" />< value unit="%" xsi:type="PQ" value="78" /& gt; <interpretationCode codeSystem="local" code="*& quot; /> <referenceRange> <observationRange> <text>50-75</text> </observationRange&gt ; </referenceRange> </observation> </ component> <component> <observation moodCode="EVN& quot; classCode="OBS"> <templateId root=" 2.16.840.1.664183.10.20.22.4.2" /> <id nullFlavor="NA& quot; /> <code codeSystem="local" code="LY#" displayName="LYMPHOCYTE #" /> <statusCode code=" completed" /> <effectiveTime value="839804114449" /> <value unit="k/cumm" xsi:type="PQ" value=" 0.9" /> <interpretationCode codeSystem="local" code="*" /> <referenceRange> < observationRange> <text>1.0-4.0</text> & lt;/observationRange> </referenceRange> </ observation> </component> <component> <observation moodCode="EVN" classCode="OBS"> <templateId root="2.16.840.1.433353.10.20.22.4.2" /> <id nullFlavor ="NA" /> <code codeSystem="local" code="LY& amp;#37;" displayName="LYMPHOCYTE%" /> < statusCode code="completed" /> <effectiveTime value=& quot;590438180993" /> <value unit="%" xsi: type="PQ" value="9" /> <interpretationCode codeSystem="local" code="*" /> < referenceRange> <observationRange> <text>20-30</ text> </observationRange> </referenceRange> </observation> </component> <component> <observation moodCode="EVN" classCode="OBS"> <templateId root="2.16.840.1.164034.10.20.22.4.2" /> <id nullFlavor="NA" /> <code codeSystem=" local" code="MCH" displayName="MEAN CELL HGB" /> <statusCode code="completed" /> < effectiveTime value="457436617433" /> <value unit=&quot ;pg" xsi:type="PQ" value="24.4" /> < interpretationCode codeSystem="local" code="*" /> <referenceRange> <observationRange> < text>27.0-33.0</text> </observationRange> < /referenceRange> </observation> </component> < component> <observation moodCode="EVN" classCode=" OBS"> <templateId root="2.16.840.1.850301.10.20.22.4.2& quot; /> <id nullFlavor="NA" /> <code codeSystem="local" code="MCHC" displayName="MEAN CELL HGB CONCENTRATION" /> <statusCode code="completed&quot ; /> <effectiveTime value="921413914218" />< value unit="g/dL" xsi:type="PQ" value="30.7" /&gt ; <interpretationCode codeSystem="local" code="*&quot ; /> <referenceRange> <observationRange> <text>32.0-37.0</text> </observationRange&gt ; </referenceRange> </observation> </ component> <component> <observation moodCode="EVN& quot; classCode="OBS"> <templateId root=" 2.16.840.1.386546.10.20.22.4.2" /> <id nullFlavor="NA& quot; /> <code codeSystem="local" code="MCV" displayName="MEAN CELL VOLUME" /> <statusCode code=& quot;completed" /> <effectiveTime value="483103245192& quot; /> <value unit="fl" xsi:type="PQ" value ="79.5" /> <interpretationCode codeSystem="local& quot; code="*" /> <referenceRange> < observationRange> <text>80.0-100.0</text> </observationRange> </referenceRange> </observation> </component> <component> <observation moodCode=& quot;EVN" classCode="OBS"> <templateIdroot=" 2.16.840.1.831003.10.20.22.4.2" /> <id nullFlavor="NA& quot; /> <code codeSystem="local" code="MO#" displayName="MONOCYTE #" /> <statusCode code=" completed" /> <effectiveTime value="315272848064" /> <value unit="k/cumm" xsi:type="PQ" value=& quot;1.1" /> <interpretationCode codeSystem="local&quot ; code="*" /> <referenceRange> < observationRange> <text>0.1-1.0</text> & lt;/observationRange> </referenceRange> </ observation> </component> <component> < observation moodCode="EVN" classCode="OBS"> < templateId root="2.16.840.1.508340.10.20.22.4.2" /> < id nullFlavor="NA" /> <code codeSystem="local&quot ; code="MO%" displayName="MONOCYTE %" /> <statusCode code="completed" /> < effectiveTime value="460506034918" /> <value unit=&quot ;%" xsi:type="PQ" value="11"/> < interpretationCode codeSystem="local" code="*" />< referenceRange> <observationRange> <text> 4-6</text> </observationRange> </ referenceRange> </observation> </component> < component> <observation moodCode="EVN" classCode=" OBS"> <templateId root="2.16.840.1.055334.10.20.22.4.2& quot; /> <id nullFlavor="NA" /> <code codeSystem="local" code="OVAL" displayName="OVALOCYTES& quot; /> <statusCode code="completed" /> & lt;effectiveTime value="003595211865" /> <value unit=& quot;" xsi:type="PQ" value="NOTED" /> < referenceRange> <observationRange> <text /> </observationRange> </referenceRange> </ observation> </component> <component> < observation moodCode="EVN" classCode="OBS"> < templateId root="2.16.840.1.662160.10.20.22.4.2" /> < id nullFlavor="NA" /> <code codeSystem="local&quot ; code="RBC" displayName="RED BLOODCELL" /> < statusCode code="completed" /> <effectiveTimevalue=& quot;526754653250" /> <value unit="m/cumm" xsi: type="PQ" value="4.63" /> <referenceRange&gt ; <observationRange> <text>4.00-6.00</text& gt; </observationRange> </referenceRange> </observation> </component> <component> &lt ;observation moodCode="EVN" classCode="OBS"> &lt ;templateId root="2.16.840.1.784810.10.20.22.4.2" /> < id nullFlavor="NA" /> <code codeSystem="local" code=& quot;RDW" displayName="RED CELL DISTRIBUTION WIDTH" /> <statusCode code="completed" /> < effectiveTimevalue="587015998179" /> <value unit=" %" xsi:type="PQ" value="19.5" /> & lt;interpretationCode codeSystem="local" code="*" /> <referenceRange> <observationRange><text>11.0 -15.6</text> </observationRange> </ referenceRange> </observation> </component> < component> <observation moodCode="EVN" classCode=" OBS"> <templateId root="2.16.840.1.308259.10.20.22.4.2& quot; /> <id nullFlavor="NA" /> <code codeSystem="local" code="WBC" displayName="WHITE BLOOD CELL" /> <statusCode code="completed" /> < effectiveTime value="320891518868" /> <value unit=&quot ;k/cumm" xsi:type="PQ" value="10.1" /> < interpretationCode codeSystem="local" code="*" /> < referenceRange> <observationRange> <text> 5.0-10.0</text> </observationRange> </ referenceRange> </observation> </component> < component> <observation moodCode="EVN" classCode=" OBS"> <templateId root="2.16.840.1.366997.10.20.22.4.2& quot;/> <id nullFlavor="NA" /> <code codeSystem="local"code="HGBT" displayName="HEMOGLOBIN& quot; /> <statusCode code="completed" /> & lt;effectiveTime value="000725895008" /> <value unit=& quot;gm/dL" xsi:type="PQ" value="11.3" /> & lt;interpretationCode codeSystem="local" code="*" /> <referenceRange> <observationRange> <text& gt;12.0-16.0</text> </observationRange> </ referenceRange> </observation> </component> < component> <observation moodCode="EVN" classCode=" OBS"> <templateId root="2.16.840.1.358860.10.20.22.4.2&quot ; /> <id nullFlavor="NA" /> <code codeSystem="local" code="HCTT" displayName="HEMATOCRIT& quot; /> <statusCode code="completed" /> & lt;effectiveTime value="734087903018" /> <value unit=& quot;%" xsi:type="PQ" value="36.8" /> <interpretationCode codeSystem="local" code="*" /&gt ; <referenceRange> <observationRange> <text>37.0-47.0</text> </observationRange> </referenceRange> </observation> </component&gt ; <component> <observation moodCode="EVN" classCode="OBS"> <templateId root=" 2.16.840.1.268330.10.20.22.4.2" /> <id nullFlavor="NA& quot; /> <code codeSystem="local" code="PLT" displayName="PLATELET COUNT"/> <statusCode code=" completed" /> <effectiveTime value="518232819156" /> <value unit="k/cumm" xsi:type="PQ" value=& quot;227" /> <referenceRange> < observationRange><text>150-400</text> </ observationRange> </referenceRange> </observation&gt ; </component> </organizer> </entry> <entry> <organizer moodCode="EVN" classCode="BATTERY"> <templateId root="2.16.840.1.847819.10.20.22.4.1" /> < id nullFlavor="NA" /> <code codeSystem="local" code= "METABC" displayName="METABOLIC PANEL, COMPREHN" /> <statusCode code="completed" /> <component> < observation moodCode="EVN" classCode="OBS"> < templateId root="2.16.840.1.597878.10.20.22.4.2" /> < id nullFlavor="NA" /> <code codeSystem="local" code="K" displayName="POTASSIUM" /> < statusCode code="completed" /> <effectiveTime value=& quot;246452950818" /> <value unit="mmol/L" xsi: type="PQ" value="4.2" /> <referenceRange> <observationRange> <text>3.5-5.3</text& gt; </observationRange> </referenceRange> & lt;/observation> </component> <component> < observation moodCode="EVN" classCode="OBS"> < templateId root="2.16.840.1.379195.10.20.22.4.2" /> < id nullFlavor="NA" /> <code codeSystem="local&quot ; code="eGFR" displayName="EST GFR (MDRD)" /> & lt;statusCode code="completed" /> <effectiveTime value= "736849836806" /> <value unit="mL/min" xsi: type="PQ" value="> 60" /> < referenceRange> <observationRange> <text> > 59</text> </observationRange> </ referenceRange> </observation> </component> < component> <observation moodCode="EVN" classCode=" OBS"> <templateId root="2.16.840.1.815350.10.20.22.4.2& quot; /> <id nullFlavor="NA" /> <code codeSystem="local" code="GAP" displayName="ANION GAP& quot; /> <statusCode code="completed" /> & lt;effectiveTime value="194178631054" /> <value unit=&quot ;mmol/L" xsi:type="PQ" value="8" /> < referenceRange> <observationRange> <text> 5-15</text> </observationRange> </ referenceRange> </observation> </component> < component> <observation moodCode="EVN" classCode=" OBS"> <templateId root="2.16.840.1.468358.10.20.22.4.2& quot; /> <id nullFlavor="NA" /> <code codeSystem="local" code="eCrCl" displayName="EST CrCl ( CG)" /> <statusCode code="completed" /> <effectiveTime value="020231219257" /> <value unit="mL/min" xsi:type="PQ" value="> 60" /& gt; <referenceRange> <observationRange> <text>> 59</text> </observationRange> </referenceRange> </observation> </component&gt ; <component> <observation moodCode="EVN" classCode="OBS"> <templateId root=" 2.16.840.1.023125.10..22.4.2" /> <id nullFlavor="NA" / > <code codeSystem="local" code="GLU" displayName="GLUCOSE" /> <statusCode code=" completed" /> <effectiveTime value="618932585238" /> <value unit="mg/dL" xsi:type="PQ" value=& quot;222" /> <interpretationCode codeSystem="local&quot ; code="*" /> <referenceRange> < observationRange> <text>70-99</text> < /observationRange> </referenceRange> </observation> </component> <component> <observation moodCode=" EVN" classCode="OBS"> <templateId root=" 2.16.840.1.121202.10.20.22.4.2" /> <id nullFlavor="NA& quot; /> <code codeSystem="local" code="CA" displayName="CALCIUM"/> <statusCode code=" completed" /> <effectiveTime value="374689163488" /> <value unit="mg/dL" xsi:type="PQ" value=& quot;8.5" /> <referenceRange> < observationRange> <text>8.5-10.1</text> & lt;/observationRange> </referenceRange> </ observation> </component> <component> < observation moodCode="EVN" classCode="OBS"> < templateId root="2.16.840.1.334587.10.20.22.4.2" /> < id nullFlavor="NA" /> <code codeSystem="local&quot ; code="BUN" displayName="BLOOD UREA NITROGEN" /> < statusCode code="completed" /> <effectiveTime value=& quot;008307307428" /> <value unit="mg/dL" xsi:type ="PQ" value="9"/> <referenceRange> <observationRange> <text>7-20</text> </observationRange> </referenceRange> </ observation> </component> <component> < observation moodCode="EVN" classCode="OBS"> < templateId root="2.16.840.1.051300.10..22.4.2" /> < id nullFlavor="NA" /> <code codeSystem="local&quot ; code="CREAT" displayName="CREATININE" /> < statusCode code="completed" /> <effectiveTime value=& quot;543712299190" /><value unit="mg/dL" xsi:type="PQ& quot; value="0.7" /> <referenceRange> &lt ;observationRange> <text>0.6-1.0</text> </ observationRange> </referenceRange> </observation&gt ; </component> <component> <observation moodCode ="EVN" classCode="OBS"> <templateId root=& quot;2.16.840.1.853239.10..22.4.2" /> <id nullFlavor="NA& quot; /> <code codeSystem="local" code="NA" displayName="SODIUM" /> <statusCode code=" completed" /> <effectiveTime value="058212950588" /> <value unit="mmol/L" xsi:type="PQ" value=& quot;135" /> <referenceRange> <observationRange> <text>135-148</text> </observationRange& gt; </referenceRange> </observation> </ component> <component> <observation moodCode="EVN& quot; classCode="OBS"> <templateId root=" 2.16.840.1.494726.10.20.22.4.2" /> <id nullFlavor="NA& quot; /> <code codeSystem="local" code="CL" displayName="CHLORIDE" /> <statusCode code=" completed" /> <effectiveTime value="623178069925" /> <value unit="mmol/L" xsi:type="PQ" value=& quot;102" /> <referenceRange> < observationRange> <text>98-110</text> &lt ;/observationRange> </referenceRange> </observation& gt; </component> <component> <observation moodCode="EVN" classCode="OBS"> <templateId root="2.16.840.1.242171.10..22.4.2" /> <id nullFlavor ="NA" /> <code codeSystem="local" code="AST& quot; displayName="AST/SGOT" /> <statusCode code=" completed" /> <effectiveTime value="831943572447" /> <value unit="Units/L" xsi:type="PQ" value= "37" /> <referenceRange> < observationRange> <text>10-37</text> < /observationRange> </referenceRange> </observation> </component> <component> <observation moodCode=& quot;EVN" classCode="OBS"> <templateId root=" 2.16.840.1.694237.10..22.4.2" /> <id nullFlavor="NA& quot; /> <code codeSystem="local" code="ALT" displayName="ALT/SGPT" /> <statusCodecode=" completed" /> <effectiveTime value="630729803581" /> <value unit="Units/L" xsi:type="PQ" value=&quot ;38" /> <referenceRange> <observationRange& gt; <text>< 66</text> </ observationRange> </referenceRange> </observation&gt ; </component> <component> <observation moodCode ="EVN" classCode="OBS"> <templateId root=& quot;2.16.840.1.089291.10.20.22.4.2" /> <id nullFlavor=&quot ;NA" /> <code codeSystem="local" code="CO2& quot; displayName="CARBON DIOXIDE" /> <statusCode code= "completed" /> <effectiveTime value="482229730570& quot; /> <value unit="mmol/L" xsi:type="PQ" value="25" /> <referenceRange> < observationRange> <text>21-32</text> < /observationRange> </referenceRange> </observation& gt; </component> <component> <observation moodCode="EVN" classCode="OBS"> <templateId root="2.16.840.1.926250.10.20.22.4.2" /> <id nullFlavor ="NA" /> <code codeSystem="local" code=" TP"displayName="TOTAL PROTEIN" /> <statusCode code ="completed" /> <effectiveTime value="611002110474& quot; /> <value unit="gm/dL" xsi:type="PQ" value="6.5" /> <referenceRange> < observationRange> <text>6.4-8.2</text> & lt;/observationRange> </referenceRange> </ observation> </component> <component> < observation moodCode="EVN" classCode="OBS"> < templateId root="2.16.840.1.145860.10.20.22.4.2" /> < id nullFlavor="NA" /> <code codeSystem="local&quot ; code="ALB" displayName="ALBUMIN" /> < statusCode code="completed" /> <effectiveTime value=& quot;847531158661" /> <value unit="gm/dL" xsi:type ="PQ" value="2.8" /> <interpretationCode codeSystem="local" code="*" /> < referenceRange> <observationRange> <text> 3.4-5.0</text> </observationRange> </ referenceRange> </observation> </component> < component> <observation moodCode="EVN" classCode=" OBS"> <templateId root="2.16.840.1.248565.10.20.22.4.2& quot; /> <id nullFlavor="NA" /> <code codeSystem="local" code="BILTOT" displayName="BILI TOTAL" /> <statusCode code="completed" /> <effectiveTime value="536698255552" /> <value unit="mg/dL" xsi:type="PQ" value="0.6" /> <referenceRange> <observationRange> < text>0.0-1.0</text> </observationRange> </ referenceRange> </observation> </component> < component> <observation moodCode="EVN" classCode=" OBS"> <templateId root="2.16.840.1.068281.10.20.22.4.2& quot; /> <id nullFlavor="NA" /> <code codeSystem="local" code="ALKP" displayName="ALKALINE PHOSPHATASE TOTAL" /> <statusCode code="completed&quot ; /> <effectiveTime value="737434420637" /> <value unit="IU/L" xsi:type="PQ" value="137" /> <interpretationCode codeSystem="local" code="*" /> <referenceRange> <observationRange> <text>45-117</text> </observationRange> &lt ;/referenceRange> </observation> </component> < /organizer> </entry> <entry> <organizer moodCode=" EVN" classCode="BATTERY"> <templateId root=" 2.16.840.1.381038.10.20.22.4.1" /> <id nullFlavor="NA&quot ; /> <code codeSystem="local"code="GLUMON" displayName="GLUCOSE (POC)" /> <statusCode code=" completed" /> <component> <observation moodCode=& quot;EVN" classCode="OBS"> <templateId root=" 2.16.840.1.608107.10.20.22.4.2" /> <id nullFlavor="NA&quot ; /> <code codeSystem="local" code="GLUMON" displayName="GLUCOSE (POC)" /> <statusCode code=" completed" /> <effectiveTime value="979555929424" /> <value unit="mg/dL" xsi:type="PQ" value=& quot;253" /> <interpretationCode codeSystem="local&quot ; code="*" /> <referenceRange> < observationRange> <text>70-99</text> < /observationRange> </referenceRange> </observation& gt; </component> </organizer> </entry> <entry&gt ; <organizer moodCode="EVN" classCode="BATTERY"> <templateId root="2.16.840.1.917058.10.20.22.4.1" /> & lt;id nullFlavor="NA" /> <code codeSystem="local&quot ; code="GLUMON" displayName="GLUCOSE (POC)" /> < statusCode code="completed" /><component> < observation moodCode="EVN" classCode="OBS"> < templateId root="2.16.840.1.584307.10.20.22.4.2" /> < id nullFlavor="NA" /> <code codeSystem="local&quot ; code="GLUMON" displayName="GLUCOSE (POC)" /> & lt;statusCode code="completed" /> <effectiveTime value= "618521595852" /> <value unit="mg/dL" xsi: type="PQ" value="148" /> <interpretationCode codeSystem="local" code="*" /> < referenceRange> <observationRange> <text>70 -99</text> </observationRange> </ referenceRange> </observation> </component> </ organizer> </entry> <entry> <organizer moodCode="EVN " classCode="BATTERY"> <templateId root=" [id number]" /> <id nullFlavor="NA&quot ; /> <code codeSystem="local" code="GLUMON" displayName="GLUCOSE(POC)" /> <statusCode code=" completed" /> <component><observation moodCode="EVN& quot; classCode="OBS"> <templateId root=" [id number]" /> <id nullFlavor="NA& quot; /> <code codeSystem="local" code="GLUMON" displayName="GLUCOSE (POC)" /> <statusCode code=" completed" /> <effectiveTime value="[id number]" /> <value unit="mg/dL" xsi:type="PQ" value=& quot;225" /> <interpretationCode codeSystem="local&quot ; code="*" /> <referenceRange> < observationRange> <text>70-99</text> < /observationRange> </referenceRange> </observation& gt; </component> </organizer> </entry> <entry&gt ; <organizer moodCode="EVN" classCode="BATTERY"> <templateId root="2.16.840.1.316529.10.20.22.4.1" /> & lt;id nullFlavor="NA" /> <code codeSystem="local&quot ; code="GLUMON" displayName="GLUCOSE (POC)" /> < statusCode code="completed" /> <component> < observation moodCode="EVN" classCode="OBS"> < templateId root="2.16.840.1.130251.10.20.22.4.2" /> < id nullFlavor="NA" /> <code codeSystem="local&quot ; code="GLUMON" displayName="GLUCOSE (POC)" /> & lt;statusCode code="completed" /> <effectiveTime value= "385051084811" /> <value unit="mg/dL" xsi: type="PQ" value="209" /> <interpretationCode codeSystem="local" code="*" /> < referenceRange> <observationRange> <text> 70-99</text> </observationRange> </referenceRange&gt ; </observation> </component> </organizer> &lt ;/entry> <entry> <organizer moodCode="EVN" classCode=& quot;BATTERY"> <templateId root=" 2.16.840.1.540091.10.20.22.4.1" /> <id nullFlavor="NA&quot ; /> <code codeSystem="local" code="HH" displayName="HGB HCT" /> <statusCode code="completed " /> <component> <observation moodCode="EVN& quot; classCode="OBS"> <templateId root=" 2.16.840.1.560683.10.20.22.4.2" /> <id nullFlavor="NA& quot; /> <code codeSystem="local" code="MCV" displayName="MEAN CELL VOLUME" /> <statusCode code=& quot;completed" /> <effectiveTime value="360864671449& quot; /> <value unit="fl" xsi:type="PQ" value ="78.9" /> <interpretationCode codeSystem="local& quot; code="*" /> <referenceRange> < observationRange> <text>80.0-100.0</text> </observationRange> </referenceRange> </ observation> </component> <component> < observation moodCode="EVN" classCode="OBS"> < templateId root="2.16.840.1.404850.10.20.22.4.2" /> < id nullFlavor="NA" /> <code codeSystem="local&quot ; code="HGBT" displayName="HEMOGLOBIN" /> < statusCode code="completed" /> <effectiveTime value=& quot;728558928060" /> <value unit="gm/dL" xsi:type ="PQ" value="10.5" /> <interpretationCode codeSystem="local" code="*" /> < referenceRange> <observationRange> <text> 12.0-16.0</text> </observationRange> </ referenceRange> </observation> </component> < component> <observation moodCode="EVN" classCode=" OBS"> <templateId root="2.16.840.1.910101.10.20.22.4.2& quot; /> <id nullFlavor="NA" /> <code codeSystem="local" code="HCTT" displayName="HEMATOCRIT& quot; /> <statusCode code="completed" /> & lt;effectiveTime value="302603290455"/> <value unit=& quot;%" xsi:type="PQ" value="33.7" /> <interpretationCode codeSystem="local" code="*" /&gt ; <referenceRange> <observationRange> <text>37.0-47.0</text> </observationRange> </referenceRange> </observation> </component&gt ; </organizer> </entry> <entry> <organizer moodCode ="EVN" classCode="BATTERY"> <templateId root=& quot;2.16.840.1.499388.10.20.22.4.1" /> <id nullFlavor="NA& quot; /> <code codeSystem="local" code="GLUMON" displayName="GLUCOSE (POC)" /> <statusCode code=" completed" /> <component> <observation moodCode=& quot;EVN" classCode="OBS"> <templateId root=" 2.16.840.1.209314.10.20.22.4.2" /> <id nullFlavor="NA& quot; /> <code codeSystem="local" code="GLUMON& quot; displayName="GLUCOSE (POC)" /> <statusCode code=& quot;completed" /> <effectiveTime value="304509956844& quot; /> <value unit="mg/dL" xsi:type="PQ" value="199" /> <interpretationCode codeSystem=" local" code="*" /> <referenceRange> & lt;observationRange> <text>70-99</text> & lt;/observationRange> </referenceRange> </ observation> </component> </organizer> </entry> & lt;entry> <organizer moodCode="EVN" classCode="BATTERY& quot;> <templateId root="2.16.840.1.098977.10.20.22.4.1" /& gt; <id nullFlavor="NA" /> <code codeSystem=" local" code="GLUMON" displayName="GLUCOSE (POC)" /> <statusCode code="completed" /> <component> <observation moodCode="EVN" classCode="OBS"> <templateId root="2.16.840.1.602827.10.20.22.4.2" /> <idnullFlavor="NA" /> <code codeSystem=" local" code="GLUMON" displayName="GLUCOSE (POC)" /> <statusCode code="completed" /> < effectiveTime value="381039689702" /> <value unit=&quot ;mg/dL" xsi:type="PQ" value="221" /> < interpretationCode codeSystem="local" code="*" /> <referenceRange> <observationRange> < text>70-99</text> </observationRange></ referenceRange> </observation> </component> </ organizer> </entry> <entry> <organizer moodCode="EVN " classCode="BATTERY"> <templateId root=" 2.16.840.1.101319.10.20.22.4.1" /> <id nullFlavor="NA&quot ; /> <code codeSystem="local" code="CBCD" displayName="CBC W/DIFF" /> <statusCode code=" completed" /> <component> <observation moodCode=& quot;EVN" classCode="OBS"> <templateId root=" 2.16.840.1.623526.10.20.22.4.2" /> <id nullFlavor="NA& quot; /> <code codeSystem="local" code="BA#" displayName="BASOPHIL #" /> <statusCode code=" completed" /> <effectiveTime value="714226739553" /> <value unit="k/cumm" xsi:type="PQ" value=& quot;0.1" /> <referenceRange> < observationRange> <text>0.0-0.2</text> </ observationRange> </referenceRange> </observation&gt ; </component> <component> <observation moodCode ="EVN" classCode="OBS"> <templateId root=& quot;2.16.840.1.327374.10.20.22.4.2" /> <id nullFlavor=&quot ;NA" /> <codecodeSystem="local" code="BA& #37;" displayName="BASOPHIL %"/> < statusCode code="completed" /> <effectiveTime value=& quot;541174901754" /> <value unit="%" xsi: type="PQ" value="1" /> <referenceRange> <observationRange> <text>0-1</text> </ observationRange> </referenceRange> </observation> </component> <component> <observation moodCode= "EVN" classCode="OBS"> <templateId root=&quot ;2.16.840.1.515754.10..22.4.2" /> <id nullFlavor="NA& quot; /> <code codeSystem="local" code="CBCCOM& quot; displayName="COMMENT" /> <statusCode code=" completed" /> <effectiveTime value="683078197000" /> <value unit="" xsi:type="PQ" value=" REVIEWED" /> <referenceRange> <observationRange& gt; <text /> </observationRange> </ referenceRange> </observation> </component> < component> <observation moodCode="EVN" classCode=" OBS"> <templateId root="2.16.840.1.014584.10.20.22.4.2& quot; /> <id nullFlavor="NA" /> <code codeSystem="local" code="EO#" displayName="EOSINOPHIL # " /> <statusCode code="completed" /> & lt;effectiveTime value="612529171861" /> <value unit=& quot;k/cumm" xsi:type="PQ" value="0.3" /> & lt;referenceRange> <observationRange> <text>0.1- 0.5</text> </observationRange> </ referenceRange> </observation> </component> < component> <observation moodCode="EVN" classCode=" OBS"> <templateId root="2.16.840.1.490977.10.20.22.4.2" / > <id nullFlavor="NA" /> <code codeSystem="local" code="EO%" displayName=" EOSINOPHIL %" /> <statusCode code="completed& quot; /> <effectiveTime value="147040439808" /> <value unit="%" xsi:type="PQ" value="2 " /> <referenceRange> <observationRange> <text>2-4</text> </observationRange> </referenceRange> </observation> </component> <component> <observation moodCode="EVN" classCode=& quot;OBS"> <templateId root=" 2.16.840.1.899657.10..22.4.2" /> <id nullFlavor="NA& quot; /> <code codeSystem="local" code="GR#" displayName="GRANULOCYTE #" /> <statusCode code=" completed" /> <effectiveTime value="939547363779" /> <value unit="k/cumm" xsi:type="PQ" value=& quot;10.1" /> <interpretationCode codeSystem="local& quot;code="*" /> <referenceRange> < observationRange> <text>2.0-9.0</text> </ observationRange> </referenceRange> </observation&gt ; </component> <component> <observation moodCode ="EVN" classCode="OBS"> <templateId root=& quot;2.16.840.1.511917.10.20.22.4.2" /> <id nullFlavor=&quot ;NA" /> <code codeSystem="local" code="GR&amp ;#37;" displayName="GRANULOCYTE %" /> < statusCode code="completed" /> <effectiveTime value=& quot;241393751545" /> <value unit="%" xsi: type="PQ" value="75" /> <referenceRange> <observationRange> <text>50-75</text> </observationRange> </referenceRange> </ observation> </component> <component> < observation moodCode="EVN" classCode="OBS"> < templateId root="2.16.840.1.529683.10.20.22.4.2" /> < id nullFlavor="NA" /> <codecodeSystem="local&quot ; code="LY#" displayName="LYMPHOCYTE #" /> < statusCode code="completed" /> <effectiveTime value=& quot;031821194857" /> <value unit="k/cumm" xsi: type="PQ" value="1.6"/> <referenceRange> <observationRange> <text>1.0-4.0</text&gt ; </observationRange> </referenceRange> & lt;/observation> </component> <component> < observation moodCode="EVN" classCode="OBS"> < templateId root="2.16.840.1.243567.10..22.4.2" /> < id nullFlavor="NA" /> <code codeSystem="local&quot ; code="LY%" displayName="LYMPHOCYTE %" /&gt ; <statusCode code="completed" /> < effectiveTime value="979612475513" /> <value unit=&quot ;%" xsi:type="PQ" value="12"/> < interpretationCode codeSystem="local" code="*" />< referenceRange> <observationRange> <text> 20-30</text> </observationRange> </ referenceRange> </observation> </component> < component> <observation moodCode="EVN" classCode=" OBS"> <templateId root="2.16.840.1.734040.10.20.22.4.2& quot; /> <id nullFlavor="NA" /> <code codeSystem="local" code="MCH" displayName="MEAN CELL HGB" /> <statusCode code="completed" /> <effectiveTime value="425722349271" /> <value unit="pg" xsi:type="PQ" value="25.0" /> <interpretationCode codeSystem="local" code="*" /> <referenceRange> <observationRange> <text>27.0-33.0</text> </observationRange> </referenceRange> </observation> </component&gt ; <component> <observation moodCode="EVN" classCode="OBS"> <templateId root=" 2.16.840.1.822326.10.20.22.4.2" /> <id nullFlavor="NA& quot; /> <code codeSystem="local" code="MCHC&quot ; displayName="MEAN CELL HGB CONCENTRATION" /> < statusCode code="completed" /> <effectiveTime value=" 541138452102" /> <value unit="g/dL" xsi:type=&quot ;PQ" value="31.3" /> <interpretationCode codeSystem="local" code="*" /> < referenceRange> <observationRange> <text> 32.0-37.0</text> </observationRange> </ referenceRange> </observation> </component> < component> <observation moodCode="EVN" classCode="OBS& quot;> <templateId root="2.16.840.1.354292.10.20.22.4.2&quot ; /> <id nullFlavor="NA" /> <code codeSystem="local" code="MCV" displayName="MEAN CELL VOLUME" /> <statusCode code="completed" /> <effectiveTime value="146699425788" /> <value unit="fl" xsi:type="PQ" value="80.0" /> <referenceRange> <observationRange> <text> 80.0-100.0</text> </observationRange> </ referenceRange> </observation> </component> < component> <observation moodCode="EVN" classCode=" OBS"> <templateId root="2.16.840.1.875354.10.20.22.4.2& quot; /> <id nullFlavor="NA" /> <code codeSystem="local" code="MO#" displayName="MONOCYTE #& quot; /> <statusCode code="completed" /> < effectiveTime value="596435221427" /> <value unit=&quot ;k/cumm" xsi:type="PQ" value="1.4" /> < interpretationCode codeSystem="local" code="*" /> < referenceRange> <observationRange> <text> 0.1-1.0</text> </observationRange> </ referenceRange> </observation> </component> < component> <observation moodCode="EVN" classCode=" OBS"> <templateId root="2.16.840.1.342505.10.20.22.4.2& quot; /> <id nullFlavor="NA" /> <code codeSystem="local" code="MO%" displayName=" MONOCYTE %" /> <statusCode code="completed&quot ; /> <effectiveTime value="183910094283" /> < value unit="%" xsi:type="PQ" value="11" /& gt; <interpretationCode codeSystem="local" code="*& quot; /> <referenceRange> <observationRange> <text>4-6</text> </observationRange> </referenceRange> </observation> </ component> <component> <observation moodCode="EVN& quot; classCode="OBS"> <templateId root=" 2.16.840.1.520959.10.20.22.4.2" /> <id nullFlavor="NA& quot; /> <code codeSystem="local" code="RBC" displayName="RED BLOOD CELL" /> <statusCode code=" completed" /> <effectiveTime value="575797103695" /& gt; <value unit="m/cumm" xsi:type="PQ" value=& quot;4.04" /> <referenceRange> < observationRange> <text>4.00-6.00</text> </observationRange> </referenceRange> </ observation> </component> <component> < observation moodCode="EVN" classCode="OBS"> < templateId root="2.16.840.1.819212.10.20.22.4.2" /> < id nullFlavor="NA" /> <code codeSystem="local&quot ; code="RDW" displayName="RED CELL DISTRIBUTION WIDTH" /&gt ; <statusCode code="completed" /> < effectiveTime value="363498708748" /> <value unit=&quot ;%" xsi:type="PQ" value="19.0" /> & lt;interpretationCode codeSystem="local" code="*" /> <referenceRange> <observationRange> & lt;text>11.0-15.6</text> </observationRange> </ referenceRange> </observation> </component> < component> <observation moodCode="EVN" classCode=" OBS"> <templateId root="2.16.840.1.237794.10.20.22.4.2& quot; /> <id nullFlavor="NA" /> <code codeSystem="local" code="WBC" displayName="WHITE BLOOD CELL" /> <statusCode code="completed" /> <effectiveTime value="428462691077" /> <value unit="k/cumm" xsi:type="PQ" value="13.5" /> <interpretationCode codeSystem="local" code="*" /& gt; <referenceRange> <observationRange> <text>5.0-10.0</text> </observationRange> </referenceRange> </observation> </component& gt; <component> <observation moodCode="EVN" classCode="OBS"> <templateId root=" 2.16.840.1.262570.10.20.22.4.2" /> <id nullFlavor="NA& quot; /> <code codeSystem="local" code="HGBT&quot ; displayName="HEMOGLOBIN" /> <statusCode code=" completed" /> <effectiveTime value="952658500905" /> <value unit="gm/dL" xsi:type="PQ" value=& quot;10.1" /> <interpretationCode codeSystem="local& quot; code="*" /> <referenceRange> < observationRange> <text>12.0-16.0</text> </observationRange> </referenceRange> </ observation> </component> <component> < observation moodCode="EVN" classCode="OBS"> < templateId root="2.16.840.1.448597.10.20.22.4.2" /> <id nullFlavor="NA" /> <code codeSystem="local" code="HCTT" displayName="HEMATOCRIT" /> < statusCode code="completed" /> <effectiveTime value=& quot;989822406312" /> <value unit="%" xsi: type="PQ" value="32.3" /> < interpretationCode codeSystem="local" code="*" /> <referenceRange> <observationRange> <text>37.0 -47.0</text> </observationRange> </ referenceRange> </observation> </component> < component> <observation moodCode="EVN" classCode=" OBS"> <templateId root="2.16.840.1.989347.10.20.22.4.2" / > <id nullFlavor="NA" /> <code codeSystem="local" code="PLT" displayName="PLATELET COUNT" /> <statusCode code="completed" /> <effectiveTime value="720906128451" /> <value unit="k/cumm" xsi:type="PQ" value="363" /> <referenceRange> <observationRange> & lt;text>150-400</text> </observationRange> </ referenceRange> </observation> </component> </ organizer> </entry> <entry> <organizer moodCode="EVN& quot; classCode="BATTERY"> <templateId root=" 2.16.840.1.851231.10.20.22.4.1" /> <id nullFlavor="NA&quot ; /> <code codeSystem="local" code="MORPH" displayName="MORPHOLOGY" /> <statusCode code=" completed" /> <component> <observation moodCode=& quot;EVN" classCode="OBS"> <templateId root=" 2.16.840.1.337839.10.20.22.4.2" /> <id nullFlavor="NA& quot;/> <code codeSystem="local" code="RMORPH&quot ; displayName="RBC MORPH" /> <statusCode code=" completed" /> <effectiveTime value="741805372340" /> <value unit="" xsi:type="PQ" value=" NOTED" /> <referenceRange> < observationRange> <text /> </observationRange> </referenceRange> </observation> </component& gt; </organizer> </entry> <entry> <organizer moodCode="EVN" classCode="BATTERY"> <templateId root="2.16.840.1.874897.10.20.22.4.1" /> <id nullFlavor=& quot;NA" /> <codecodeSystem="local" code="METABC& quot; displayName="METABOLIC PANEL, COMPREHN" /> < statusCode code="completed" /> <component> < observation moodCode="EVN" classCode="OBS"> < templateId root="2.16.840.1.259330.10.20.22.4.2" /> < id nullFlavor="NA" /> <code codeSystem="local&quot ; code="K" displayName="POTASSIUM" /> < statusCode code="completed" /> <effectiveTime value=& quot;596599356233" /> <value unit="mmol/L" xsi: type="PQ" value="3.9" /> <referenceRange> <observationRange> <text>3.5-5.3</text& gt; </observationRange> </referenceRange> </observation> </component> <component> &lt ;observation moodCode="EVN" classCode="OBS"> &lt ;templateId root="2.16.840.1.840775.10.20.22.4.2" /> < id nullFlavor="NA" /> <code codeSystem="local&quot ; code="eGFR" displayName="EST GFR (MDRD)" /> & lt;statusCode code="completed" /> <effectiveTime value= "183600665314" /> <value unit="mL/min" xsi:type=& quot;PQ" value="54" /> <interpretationCode codeSystem="local" code="*" /> < referenceRange> <observationRange> <text> > 59</text> </observationRange> </referenceRange& gt; </observation> </component> <component> <observation moodCode="EVN" classCode="OBS"> <templateId root="2.16.840.1.202533.10..22.4.2" /> <id nullFlavor="NA" /> <code codeSystem=&quot ;local" code="GAP" displayName="ANION GAP" /> <statusCode code="completed" /> <effectiveTime value="281236432875" /> <value unit="mmol/L" xsi:type="PQ" value="5" /> <referenceRange&gt ; <observationRange> <text>5-15</text&gt ; </observationRange> </referenceRange> & lt;/observation> </component> <component> < observation moodCode="EVN" classCode="OBS"> < templateId root="2.16.840.1.056016.10..22.4.2" /> < id nullFlavor="NA" /> <code codeSystem="local&quot ; code="eCrCl" displayName="EST CrCl (CG)" /> & lt;statusCode code="completed" /> <effectiveTime value= "893011835678" /> <value unit="mL/min" xsi: type="PQ" value="57" /> <interpretationCode codeSystem="local" code="*" /> < referenceRange> <observationRange> <text>> 59& lt;/text> </observationRange> </referenceRange& gt; </observation> </component> <component> <observation moodCode="EVN" classCode="OBS"> <templateId root="2.16.840.1.791609.10.20.22.4.2" /> <id nullFlavor="NA" /> <code codeSystem=&quot ;local" code="GLU" displayName="GLUCOSE" /> <statusCode code="completed" /> <effectiveTime value="707488187877" /> <value unit="mg/dL" xsi:type="PQ" value="181" /> < interpretationCode codeSystem="local" code="*" /> <referenceRange> <observationRange> < text>70-99</text> </observationRange> </ referenceRange> </observation> </component> < component> <observation moodCode="EVN" classCode=" OBS"> <templateId root="2.16.840.1.347360.10.20.22.4.2& quot; /> <id nullFlavor="NA" /> <code codeSystem="local" code="CA" displayName="CALCIUM&quot ; /> <statusCode code="completed" /> < effectiveTime value="386390681062" /> <value unit=&quot ;mg/dL" xsi:type="PQ" value="8.4" /> < interpretationCode codeSystem="local" code="*" /> <referenceRange> <observationRange> < text>8.5-10.1</text> </observationRange> </ referenceRange> </observation> </component> < component> <observation moodCode="EVN" classCode=" OBS"> <templateId root="2.16.840.1.508656.10.20.22.4.2& quot; /> <id nullFlavor="NA" /> <code codeSystem="local" code="BUN" displayName="BLOOD UREANITROGEN" /> <statusCode code="completed" /&gt ; <effectiveTime value="744281633419" /> < value unit="mg/dL" xsi:type="PQ" value="5" /> <interpretationCode codeSystem="local" code="*" /> <referenceRange> <observationRange> <text>7-20</text> </observationRange> </referenceRange> </observation> </component> <component> <observation moodCode="EVN" classCode=& quot;OBS"> <templateId root=" 2.16.840.1.105771.10.20.22.4.2" /> <id nullFlavor="NA& quot; /> <code codeSystem="local" code="CREAT&quot ; displayName="CREATININE" /> <statusCode code=" completed" /> <effectiveTime value="736641236802" /> <value unit="mg/dL" xsi:type="PQ" value=& quot;1.0" /> <referenceRange> <observationRange& gt; <text>0.6-1.0</text> </ observationRange> </referenceRange> </observation&gt ; </component> <component> <observation moodCode ="EVN" classCode="OBS"> <templateId root=& quot;2.16.840.1.315784.10..22.4.2"/> <id nullFlavor=" NA" /> <code codeSystem="local"code="NA&quot ; displayName="SODIUM" /> <statusCode code=" completed" /> <effectiveTime value="341266886478" /> <value unit="mmol/L" xsi:type="PQ" value=& quot;129" /> <interpretationCode codeSystem="local&quot ; code="*" /> <referenceRange> < observationRange> <text>135-148</text> & lt;/observationRange> </referenceRange> </ observation> </component> <component> < observation moodCode="EVN" classCode="OBS"> < templateId root="2.16.840.1.963746.10.20.22.4.2" /> < id nullFlavor="NA" /> <code codeSystem="local&quot ; code="CL" displayName="CHLORIDE" /> < statusCode code="completed" /> <effectiveTime value=& quot;911478343292" /> <value unit="mmol/L" xsi: type="PQ" value="96" /> <interpretationCode codeSystem="local" code="*" /> < referenceRange> <observationRange> <text> 98-110</text> </observationRange> </ referenceRange> </observation> </component> < component> <observation moodCode="EVN" classCode=" OBS"> <templateId root="2.16.840.1.592315.10.20.22.4.2& quot; /> <id nullFlavor="NA" /> <code codeSystem="local" code="AST" displayName="AST/SGOT& quot; /> <statusCode code="completed" /> & lt;effectiveTime value="019804554388" /> <value unit=& quot;Units/L" xsi:type="PQ" value="24" /> < referenceRange> <observationRange> <text> 10-37</text> </observationRange> </ referenceRange> </observation> </component> < component> <observation moodCode="EVN" classCode=" OBS"> <templateId root="2.16.840.1.083695.10..22.4.2& quot; /> <id nullFlavor="NA" /> <code codeSystem="local" code="ALT" displayName="ALT/SGPT& quot; /> <statusCode code="completed" /> & lt;effectiveTime value="281703774091" /> <value unit=& quot;Units/L" xsi:type="PQ" value="30" /> & lt;referenceRange> <observationRange> <text& gt;< 66</text> </observationRange> </ referenceRange> </observation> </component> < component> <observation moodCode="EVN" classCode=" OBS"> <templateId root="2.16.840.1.694042.10.20.22.4.2& quot; /> <id nullFlavor="NA" /> <code codeSystem="local" code="CO2"displayName="CARBON DIOXIDE" /> <statusCode code="completed" /> <effectiveTime value="551031288124" /> < value unit="mmol/L" xsi:type="PQ" value="28" /&gt ; <referenceRange><observationRange> <text& gt;21-32</text> </observationRange> </ referenceRange> </observation> </component> < component> <observation moodCode="EVN" classCode=" OBS"> <templateId root="2.16.840.1.550860.10.20.22.4.2& quot; /> <id nullFlavor="NA" /> <code codeSystem="local" code="TP" displayName="TOTAL PROTEIN " /> <statusCode code="completed" /> & lt;effectiveTime value="969309474265" /> <value unit=& quot;gm/dL" xsi:type="PQ" value="6.2" /> & lt;interpretationCode codeSystem="local" code="*" /> <referenceRange> <observationRange> <text> 6.4-8.2</text> </observationRange> </ referenceRange> </observation> </component> < component> <observation moodCode="EVN" classCode=" OBS"> <templateId root="2.16.840.1.401928.10.20.22.4.2& quot; /> <id nullFlavor="NA" /> <code codeSystem="local" code="ALB" displayName="ALBUMIN&quot ; /> <statusCode code="completed" /> < effectiveTime value="048528006980" /> <value unit=&quot ;gm/dL" xsi:type="PQ" value="2.5" /> < interpretationCode codeSystem="local" code="*" /> <referenceRange> <observationRange> < text>3.4-5.0</text> </observationRange> </ referenceRange> </observation> </component> < component> <observation moodCode="EVN" classCode=" OBS"> <templateId root="2.16.840.1.967780.10.20.22.4.2& quot; /> <id nullFlavor="NA" /> <code codeSystem="local" code="BILTOT" displayName="BILI TOTAL" /> <statusCode code="completed" /> <effectiveTime value="365791541609" /> <value unit="mg/dL" xsi:type="PQ" value="0.5" /> <referenceRange> <observationRange> < text>0.0-1.0</text> </observationRange> </ referenceRange> </observation> </component> < component> <observation moodCode="EVN" classCode=" OBS"> <templateId root="2.16.840.1.668828.10.20.22.4.2& quot; /> <id nullFlavor="NA" /> <code codeSystem="local" code="ALKP" displayName="ALKALINE PHOSPHATASE TOTAL" /> <statusCode code="completed&quot ; /> <effectiveTime value="[id number]" /> <value unit="IU/L" xsi:type="PQ" value="120" /> <interpretationCode codeSystem="local" code="*& quot; /> <referenceRange> <observationRange> <text>45-117</text> </observationRange& gt; </referenceRange> </observation> </component&gt ; </organizer> </entry> <entry> <organizer moodCode= "EVN" classCode="BATTERY"> <templateId root=&quot ;[id number]" /> <id nullFlavor="NA&quot ; /> <code codeSystem="local" code="GLUMON" displayName="GLUCOSE (POC)" /> <statusCode code=" completed" /> <component> <observation moodCode=& quot;EVN" classCode="OBS"> <templateId root=" 2.16.840.1.635459.10.20.22.4.2" /> <id nullFlavor="NA& quot; /> <code codeSystem="local" code="GLUMON& quot; displayName="GLUCOSE (POC)" /> <statusCode code=& quot;completed" /> <effectiveTime value="744402300551& quot; /> <value unit="mg/dL" xsi:type="PQ" value="167" /> <interpretationCode codeSystem=" local" code="*" /> <referenceRange> <observationRange> <text>70-99</text> </ observationRange> </referenceRange> </observation&gt ; </component> </organizer> </entry> <entry> <organizer moodCode="EVN" classCode="BATTERY"> <templateId root="2.16.840.1.584815.10.20.22.4.1" /> < id nullFlavor="NA" /> <code codeSystem="local" code= "HH" displayName="HGB HCT" /> <statusCode code=& quot;completed" /> <component> <observation moodCode="EVN" classCode="OBS"> <templateId root="2.16.840.1.672100.10.20.22.4.2" /> <id nullFlavor ="NA" /> <code codeSystem="local" code=" MCV" displayName="MEAN CELL VOLUME" /><statusCode code=& quot;completed" /> <effectiveTime value="488286515942& quot; /> <value unit="fl" xsi:type="PQ" value ="79.9" /> <interpretationCode codeSystem="local& quot; code="*" /> <referenceRange> < observationRange> <text>80.0-100.0</text> </observationRange> </referenceRange> </ observation> </component> <component> < observation moodCode="EVN" classCode="OBS"> < templateId root="2.16.840.1.954385.10.20.22.4.2" /> < id nullFlavor="NA" /> <code codeSystem="local&quot ; code="HGBT" displayName="HEMOGLOBIN" /> < statusCode code="completed" /> <effectiveTime value=& quot;956877294209" /> <value unit="gm/dL" xsi:type ="PQ" value="9.1" /> <interpretationCode codeSystem="local" code="*" /> < referenceRange> <observationRange> <text> 12.0-16.0</text> </observationRange> </ referenceRange> </observation> </component> < component> <observation moodCode="EVN" classCode=" OBS"><templateId root="2.16.840.1.674227.10.20.22.4.2" /&gt ; <id nullFlavor="NA" /> <code codeSystem=& quot;local" code="HCTT" displayName="HEMATOCRIT" /> <statusCode code="completed" /> < effectiveTime value="791911562618" /> <value unit=&quot ;%" xsi:type="PQ" value="29.4" /> & lt;interpretationCode codeSystem="local" code="*" /> <referenceRange> <observationRange> <text >37.0-47.0</text> </observationRange> </ referenceRange> </observation> </component> </ organizer> </entry> <entry> <organizer moodCode="EVN " classCode="BATTERY"> <templateId root=" 2.16.840.1.804510.10.20.22.4.1" /> <id nullFlavor="NA&quot ; /> <code codeSystem="local" code="GLUMON" displayName="GLUCOSE(POC)" /> <statusCode code=" completed" /> <component><observation moodCode="EVN& quot; classCode="OBS"> <templateId root=" 2.16.840.1.987296.10.20.22.4.2" /> <id nullFlavor="NA& quot; /> <code codeSystem="local" code="GLUMON" displayName="GLUCOSE (POC)" /> <statusCode code=" completed" /> <effectiveTime value="660281166305" /> <value unit="mg/dL" xsi:type="PQ" value=& quot;222" /> <interpretationCode codeSystem="local&quot ; code="*" /> <referenceRange> < observationRange> <text>70-99</text> < /observationRange> </referenceRange> </observation& gt; </component> </organizer> </entry> <entry&gt ; <organizer moodCode="EVN" classCode="BATTERY"> <templateId root="2.16.840.1.667171.10.20.22.4.1" /> & lt;id nullFlavor="NA" /> <code codeSystem="local&quot ; code="GLUMON" displayName="GLUCOSE (POC)" /> < statusCode code="completed" /> <component> < observation moodCode="EVN" classCode="OBS"> < templateId root="2.16.840.1.630330.10.20.22.4.2" /> < id nullFlavor="NA" /> <code codeSystem="local&quot ; code="GLUMON" displayName="GLUCOSE (POC)" /> & lt;statusCode code="completed" /> <effectiveTime value= "621364036432" /> <value unit="mg/dL" xsi: type="PQ" value="183" /> <interpretationCode codeSystem="local" code="*" /> < referenceRange> <observationRange> <text> 70-99</text> </observationRange> </referenceRange&gt ; </observation> </component> </organizer> &lt ;/entry> <entry> <organizer moodCode="EVN" classCode=& quot;BATTERY"> <templateId root=" 2.16.840.1.938064.10.20.22.4.1" /> <id nullFlavor="NA&quot ; /> <code codeSystem="local" code="CBCD" displayName="CBC W/DIFF" /> <statusCode code=" completed" /> <component> <observation moodCode=& quot;EVN" classCode="OBS"> <templateId root=" 2.16.840.1.544313.10.20.22.4.2" /> <id nullFlavor="NA" /& gt; <code codeSystem="local" code="BA#" displayName="BASOPHIL #" /> <statusCode code=" completed" /> <effectiveTime value="882042163759" /> <value unit="k/cumm" xsi:type="PQ" value=& quot;0.1" /> <referenceRange> <observationRange&gt ; <text>0.0-0.2</text> </observationRange > </referenceRange> </observation> </ component> <component> <observation moodCode="EVN" classCode="OBS"> <templateId root=" 2.16.840.1.404666.10.20.22.4.2" /> <id nullFlavor="NA& quot; /> <code codeSystem="local" code="BA&#37 ;" displayName="BASOPHIL %" /> < statusCode code="completed" /> <effectiveTime value=& quot;502345154595" /> <value unit="%" xsi: type="PQ" value="1" /> <referenceRange> & lt;observationRange> <text>0-1</text> &lt ;/observationRange> </referenceRange> </observation& gt; </component> <component> <observation moodCode="EVN" classCode="OBS"> <templateId root="2.16.840.1.185456.10.20.22.4.2" /> <id nullFlavor ="NA" /> <code codeSystem="local" code=" EO#" displayName="EOSINOPHIL #" /> <statusCode code="completed" /> <effectiveTime value=" 450941248049" /> <value unit="k/cumm" xsi:type=& quot;PQ" value="0.3" /> <referenceRange> <observationRange> <text>0.1-0.5</text> </observationRange> </referenceRange> </ observation> </component> <component> <observation moodCode="EVN" classCode="OBS"> <templateId root="2.16.840.1.345526.10..22.4.2" /> <id nullFlavor ="NA" /> <code codeSystem="local" code="EO& amp;#37;" displayName="EOSINOPHIL%" /> < statusCode code="completed" /> <effectiveTime value=& quot;275224796472" /> <value unit="%" xsi: type="PQ" value="2" /> <referenceRange> <observationRange> <text>2-4</text> </observationRange> </referenceRange> </ observation> </component> <component> < observation moodCode="EVN" classCode="OBS"> < templateId root="2.16.840.1.798186.10..22.4.2" /> < id nullFlavor="NA" /><code codeSystem="local" code=& quot;GR#" displayName="GRANULOCYTE #" /> < statusCode code="completed" /> <effectiveTime value=& quot;098036836751" /> <value unit="k/cumm" xsi: type="PQ" value="7.8" /> <referenceRange> <observationRange> <text>2.0-9.0</text& gt; </observationRange> </referenceRange> & lt;/observation> </component> <component> < observation moodCode="EVN" classCode="OBS"> < templateId root="2.16.840.1.449079.10.20.22.4.2" /> < id nullFlavor="NA" /> <code codeSystem="local&quot ; code="GR%" displayName="GRANULOCYTE %" /& gt; <statusCode code="completed" /> < effectiveTime value="338938353264" /> <value unit=&quot ;%" xsi:type="PQ" value="73" /> &lt ;referenceRange> <observationRange> <text&gt ;50-75</text> </observationRange> </ referenceRange> </observation> </component> < component> <observation moodCode="EVN" classCode=" OBS"> <templateId root="2.16.840.1.718187.10.20.22.4.2& quot; /> <id nullFlavor="NA" /> <code codeSystem="local" code="LY#" displayName="LYMPHOCYTE # " /> <statusCode code="completed" /> & lt;effectiveTime value="124114136161" /> <value unit=& quot;k/cumm" xsi:type="PQ" value="1.1" /> < referenceRange> <observationRange> <text> 1.0-4.0</text> </observationRange> </ referenceRange> </observation> </component> < component> <observation moodCode="EVN" classCode=" OBS"> <templateId root="2.16.840.1.775494.10.20.22.4.2& quot; /> <id nullFlavor="NA" /> <code codeSystem="local" code="LY%" displayName=" LYMPHOCYTE %" /> <statusCode code="completed& quot; /> <effectiveTime value="319793482046" /> <value unit="%" xsi:type="PQ" value=" 11" /> <interpretationCode codeSystem="local" code=& quot;*" /> <referenceRange> < observationRange> <text>20-30</text> </ observationRange> </referenceRange> </observation&gt ; </component> <component> <observation moodCode ="EVN" classCode="OBS"> <templateId root=& quot;2.16.840.1.959385.10.20.22.4.2" /><id nullFlavor="NA" /> <code codeSystem="local" code="MCH" displayName="MEAN CELL HGB" /> <statusCode code=" completed"/> <effectiveTime value="692044841558" / > <value unit="pg" xsi:type="PQ" value=" 24.9" /> <interpretationCode codeSystem="local" code="*" /> <referenceRange> < observationRange> <text>27.0-33.0</text> </observationRange> </referenceRange> </observation& gt; </component> <component> <observation moodCode="EVN" classCode="OBS"> <templateId root="2.16.840.1.099196.10.20.22.4.2" /> <id nullFlavor ="NA"/> <code codeSystem="local" code=" MCHC" displayName="MEAN CELL HGB CONCENTRATION" /> & lt;statusCode code="completed" /> <effectiveTime value= "878201504576" /> <value unit="g/dL" xsi:type ="PQ" value="31.7" /> <interpretationCode codeSystem="local" code="*" /> < referenceRange> <observationRange> <text>32.0 -37.0</text> </observationRange> </ referenceRange> </observation> </component> < component> <observation moodCode="EVN" classCode=" OBS"> <templateId root="2.16.840.1.466811.10.20.22.4.2& quot; /> <id nullFlavor="NA" /> <code codeSystem="local" code="MCV" displayName="MEAN CELL VOLUME" /> <statusCode code="completed" /> <effectiveTime value="522210633853" /> <value unit="fl" xsi:type="PQ" value="78.6" /> <interpretationCode codeSystem="local" code="*" /> <referenceRange> <observationRange> <text>80.0-100.0</text> </observationRange> </referenceRange> </observation> </component&gt ; <component> <observation moodCode="EVN" classCode="OBS"> <templateId root=" 2.16.840.1.845932.10.20.22.4.2" /> <id nullFlavor="NA& quot; /> <code codeSystem="local" code="MO#" displayName="MONOCYTE #" /> <statusCode code=" completed" /> <effectiveTime value="036394042382" /> <value unit="k/cumm" xsi:type="PQ" value=& quot;1.4" /> <interpretationCode codeSystem="local&quot ; code="*" /> <referenceRange> < observationRange> <text>0.1-1.0</text> & lt;/observationRange> </referenceRange> </ observation> </component> <component> < observation moodCode="EVN" classCode="OBS"> < templateId root="2.16.840.1.536070.10.20.22.4.2" /> < id nullFlavor="NA" /> <code codeSystem="local&quot ; code="MO%" displayName="MONOCYTE %" /> <statusCode code="completed" /> < effectiveTime value="602422726584" /> <value unit=&quot ;%" xsi:type="PQ" value="13" /> &lt ;interpretationCode codeSystem="local" code="*" /> <referenceRange> <observationRange> < text>4-6</text> </observationRange> </ referenceRange> </observation> </component> < component> <observation moodCode="EVN" classCode=" OBS"> <templateId root="2.16.840.1.945461.10.20.22.4.2& quot; /> <id nullFlavor="NA"/> <code codeSystem="local" code="RBC" displayName="RED BLOOD CELL" /> <statusCode code="completed" /> <effectiveTime value="504625266706" /> <value unit="m/cumm" xsi:type="PQ" value="3.73" /> <interpretationCode codeSystem="local" code="*" /& gt; <referenceRange> <observationRange> <text>4.00-6.00</text> </observationRange> </referenceRange> </observation> </component& gt; <component> <observation moodCode="EVN" classCode="OBS"> <templateId root=" 2.16.840.1.671593.10.20.22.4.2" /> <id nullFlavor="NA& quot; /> <code codeSystem="local" code="RDW" displayName="RED CELL DISTRIBUTION WIDTH" /> < statusCode code="completed" /> <effectiveTime value=& quot;827753033229" /> <value unit="%" xsi: type="PQ" value="18.4" /> < interpretationCode codeSystem="local" code="*"/> <referenceRange> <observationRange> < text>11.0-15.6</text> </observationRange> &lt ;/referenceRange> </observation> </component> & lt;component> <observation moodCode="EVN" classCode=&quot ;OBS"> <templateId root="2.16.840.1.332560.10.20.22.4.2 " /> <id nullFlavor="NA" /> <code codeSystem="local" code="WBC" displayName="WHITE BLOOD CELL" /> <statusCode code="completed" /> <effectiveTime value="481388089376" /> <value unit="k/cumm" xsi:type="PQ" value="10.7" /> <interpretationCode codeSystem="local" code="*" /> <referenceRange> <observationRange> & lt;text>5.0-10.0</text> </observationRange> </ referenceRange> </observation> </component> < component> <observation moodCode="EVN" classCode=" OBS"> <templateId root="2.16.840.1.643950.10.20.22.4.2& quot; /> <id nullFlavor="NA" /> <code codeSystem= "local" code="HGBT" displayName="HEMOGLOBIN" /&gt ; <statusCode code="completed" /> < effectiveTime value="347616694388" /> <value unit=&quot ;gm/dL" xsi:type="PQ" value="9.3" /> < interpretationCode codeSystem="local" code="*" /> <referenceRange> <observationRange> < text>12.0-16.0</text> </observationRange> </ referenceRange> </observation> </component> < component> <observation moodCode="EVN" classCode=" OBS"> <templateId root="2.16.840.1.614280.10.20.22.4.2& quot; /> <id nullFlavor="NA" /> <code codeSystem="local" code="HCTT" displayName="HEMATOCRIT& quot; /> <statusCode code="completed" /> & lt;effectiveTime value="741556874569" /> <value unit=& quot;%" xsi:type="PQ" value="29.3" /> <interpretationCode codeSystem="local" code="*" /&gt ; <referenceRange> <observationRange> <text>37.0-47.0</text> </observationRange> </referenceRange> </observation> </component&gt ; <component> <observationmoodCode="EVN" classCode="OBS"> <templateId root=" 2.16.840.1.225113.10.20.22.4.2" /> <id nullFlavor="NA& quot; /> <code codeSystem="local" code="PLT" displayName="PLATELET COUNT" /><statusCode code="completed& quot; /> <effectiveTime value="527196331381" /> <value unit="k/cumm" xsi:type="PQ" value="250& quot; /> <referenceRange> <observationRange> <text>150-400</text> </observationRange& gt; </referenceRange> </observation> </ component> </organizer> </entry> <entry> < organizer moodCode="EVN" classCode="BATTERY"> < templateId root="2.16.840.1.262512.10.20.22.4.1" /> <id nullFlavor="NA" /> <code codeSystem="local" code= "MORPH" displayName="MORPHOLOGY" /> <statusCode code="completed" /> <component> <observation moodCode="EVN" classCode="OBS"> <templateId root="2.16.840.1.240538.10.20.22.4.2" /> <id nullFlavor ="NA" /> <code codeSystem="local" code=" RMORPH" displayName="RBC MORPH" /> <statusCodecode ="completed" /> <effectiveTime value="885001020383 " /> <value unit="" xsi:type="PQ" value=&quot ;NOTED" /> <referenceRange> < observationRange> <text /> </ observationRange> </referenceRange> </observation&gt ; </component> </organizer> </entry> <entry> <organizer moodCode="EVN" classCode="BATTERY"> <templateId root="2.840.1.375270.10.20.22.4.1" /> < id nullFlavor="NA" /> <code codeSystem="local" code="METABC" displayName="METABOLIC PANEL, COMPREHN" /> <statusCode code="completed" /> <component> <observation moodCode="EVN" classCode="OBS"> <templateId root="10.12.840.1.885438.10.20.22.4.2" /> <id nullFlavor="NA" /> <code codeSystem=" local" code="K" displayName="POTASSIUM" /> <statusCode code="completed" /> <effectiveTime value ="655075840891" /> <value unit="mmol/L" xsi: type="PQ" value="3.6" /> <referenceRange> <observationRange> <text>3.5-5.3</text> </observationRange> </referenceRange> < /observation> </component> <component> < observation moodCode="EVN" classCode="OBS"> < templateId root="2.0.1.340744.10.20.22.4.2" /> < id nullFlavor="NA" /> <code codeSystem="local&quot ; code="eGFR" displayName="EST GFR (MDRD)" /> & lt;statusCode code="completed" /> <effectiveTime value=" 870383387540" /> <value unit="mL/min" xsi:type=& quot;PQ" value="54" /> <interpretationCode codeSystem="local" code="*" /> < referenceRange> <observationRange> <text> > 59</text> </observationRange> </ referenceRange> </observation> </component> < component> <observation moodCode="EVN" classCode="OBS" > <templateId root="2.16.840.1.504572.10.20.22.4.2" /& gt; <id nullFlavor="NA" /> <code codeSystem=& quot;local" code="GAP" displayName="ANION GAP" /> <statusCode code="completed" /> < effectiveTime value="599810088983" /> <value unit=&quot ;mmol/L" xsi:type="PQ" value="7" /> < referenceRange> <observationRange> <text> 5-15</text> </observationRange> </ referenceRange> </observation> </component> < component> <observation moodCode="EVN" classCode=" OBS"> <templateId root="2.16.840.1.621640.10.20.22.4.2& quot; /> <id nullFlavor="NA" /> <code codeSystem="local" code="eCrCl" displayName="EST CrCl ( CG)" /> <statusCode code="completed" /> <effectiveTime value="818613329823" /> <value unit="mL/min" xsi:type="PQ" value="57" /> & lt;interpretationCode codeSystem="local" code="*" /> <referenceRange> <observationRange> & lt;text>> 59</text> </observationRange> & lt;/referenceRange> </observation></component> < component> <observation moodCode="EVN" classCode=" OBS"> <templateId root="2.16.840.1.436932.10.20.22.4.2& quot; /> <id nullFlavor="NA" /> <code codeSystem="local" code="GLU" displayName="GLUCOSE&quot ; /> <statusCode code="completed" /> < effectiveTime value="121747645095" /> <value unit=&quot ;mg/dL" xsi:type="PQ" value="179" /> < interpretationCode codeSystem="local" code="*" /> <referenceRange> <observationRange> < text>70-99</text> </observationRange> </ referenceRange> </observation> </component> < component> <observation moodCode="EVN" classCode=" OBS"> <templateId root="2.16.840.1.111727.10.20.22.4.2& quot; /> <id nullFlavor="NA" /> <code codeSystem="local" code="CA" displayName="CALCIUM&quot ; /> <statusCode code="completed" /> < effectiveTime value="437453844743" /> <value unit=&quot ;mg/dL" xsi:type="PQ" value="8.4" /> < interpretationCode codeSystem="local" code="*" /> <referenceRange> <observationRange> < text>8.5-10.1</text> </observationRange> < /referenceRange> </observation> </component> &lt ;component> <observation moodCode="EVN" classCode=" OBS"> <templateId root="2.16.840.1.805383.10.20.22.4.2& quot; /> <id nullFlavor="NA" /> <code codeSystem="local" code="BUN" displayName="BLOOD UREA NITROGEN" /> <statusCode code="completed" /> <effectiveTime value="210094833808" /> < value unit="mg/dL" xsi:type="PQ" value="11" /> <referenceRange> <observationRange> < text>7-20</text> </observationRange> </ referenceRange> </observation> </component> < component> <observation moodCode="EVN" classCode=" OBS"> <templateId root="2.16.840.1.428188.10.20.22.4.2& quot; /> <id nullFlavor="NA" /> <code codeSystem="local" code="CREAT" displayName="CREATININE " /> <statusCode code="completed" /> & lt;effectiveTime value="724782685615" /> <value unit=& quot;mg/dL" xsi:type="PQ" value="1.0" /> & lt;referenceRange> <observationRange> <text& gt;0.6-1.0</text> </observationRange> </ referenceRange> </observation> </component> < component> <observation moodCode="EVN" classCode=" OBS"> <templateId root="2.16.840.1.366622.10.20.22.4.2& quot; /> <id nullFlavor="NA" /> <code codeSystem="local" code="NA" displayName="SODIUM" /> <statusCode code="completed" /> < effectiveTime value="950020529224" /> <value unit=&quot ;mmol/L" xsi:type="PQ" value="131" /> < interpretationCode codeSystem="local" code="*" /> <referenceRange> <observationRange> < text>135-148</text> </observationRange> </ referenceRange> </observation> </component> < component> <observation moodCode="EVN" classCode=" OBS"> <templateId root="2.16.840.1.085155.10.20.22.4.2& quot; /> <id nullFlavor="NA" /> <code codeSystem="local" code="CL" displayName="CHLORIDE&quot ; /> <statusCode code="completed" /> < effectiveTime value="493442565219" /> <value unit=&quot ;mmol/L" xsi:type="PQ" value="99" /> < referenceRange> <observationRange> <text> 98-110</text> </observationRange> </ referenceRange> </observation> </component> < component> <observation moodCode="EVN" classCode=" OBS"> <templateId root="2.16.840.1.821889.10.20.22.4.2& quot; /> <id nullFlavor="NA" /> <code codeSystem="local" code="AST" displayName="AST/SGOT& quot; /> <statusCode code="completed" /> & lt;effectiveTime value="844177105428" /><value unit="Units/ L" xsi:type="PQ" value="110" /> < interpretationCode codeSystem="local" code="*" /> <referenceRange> <observationRange> < text>10-37</text> </observationRange> </ referenceRange> </observation> </component> < component> <observation moodCode="EVN" classCode=" OBS"> <templateId root="2.16.840.1.785643.10.20.22.4.2& quot; /> <id nullFlavor="NA" /> <code codeSystem="local" code="ALT" displayName="ALT/SGPT& quot; /> <statusCode code="completed" /> & lt;effectiveTime value="340509042708" /> <value unit=& quot;Units/L" xsi:type="PQ" value="145" /> <interpretationCode codeSystem="local" code="*" /> <referenceRange> <observationRange> & lt;text>< 66</text> </observationRange> </referenceRange> </observation> </component> <component> <observation moodCode="EVN" classCode=" OBS"> <templateId root="2.16.840.1.195201.10.20.22.4.2& quot; /> <id nullFlavor="NA" /> <code codeSystem="local" code="CO2" displayName="CARBON DIOXIDE" /> <statusCode code="completed" /> <effectiveTime value="171544615999" /> < value unit="mmol/L" xsi:type="PQ" value="25" /&gt ; <referenceRange> <observationRange> <text& gt;21-32</text> </observationRange> </ referenceRange> </observation> </component> < component> <observation moodCode="EVN" classCode=" OBS"> <templateId root="2.16.840.1.661859.10.20.22.4.2& quot; /> <id nullFlavor="NA" /> <code codeSystem="local" code="TP" displayName="TOTAL PROTEIN " /> <statusCode code="completed" /> & lt;effectiveTime value="541113503828" /> <value unit=& quot;gm/dL" xsi:type="PQ" value="6.0" /> &lt ;interpretationCode codeSystem="local" code="*" /> <referenceRange> <observationRange> < text>6.4-8.2</text> </observationRange> </ referenceRange> </observation></component> < component> <observation moodCode="EVN" classCode=" OBS"> <templateId root="2.16.840.1.701810.10.20.22.4.2& quot; /> <id nullFlavor="NA" /> <code codeSystem="local" code="ALB" displayName="ALBUMIN&quot ; /> <statusCode code="completed" /> < effectiveTime value="897333259206" /> <value unit=&quot ;gm/dL" xsi:type="PQ" value="2.3" /> < interpretationCode codeSystem="local" code="*" /> <referenceRange> <observationRange> < text>3.4-5.0</text> </observationRange> </ referenceRange> </observation> </component> < component> <observation moodCode="EVN" classCode=" OBS"> <templateId root="2.16.840.1.146540.10.20.22.4.2& quot; /> <id nullFlavor="NA" /> <code codeSystem="local" code="BILTOT" displayName="BILI TOTAL" /> <statusCode code="completed" /> <effectiveTime value="410082681185" /> <value unit="mg/dL" xsi:type="PQ" value="0.5" /> <referenceRange> <observationRange> <text >0.0-1.0</text> </observationRange> </ referenceRange> </observation> </component> < component> <observation moodCode="EVN" classCode=" OBS"> <templateId root="2.16.840.1.649330.10.20.22.4.2& quot; /> <id nullFlavor="NA" /> <code codeSystem="local" code="ALKP" displayName="ALKALINE PHOSPHATASE TOTAL" /> <statusCode code="completed&quot ; /> <effectiveTime value="372850713628" /> <value unit="IU/L" xsi:type="PQ" value="141" /> <interpretationCode codeSystem="local" code="*& quot; /> <referenceRange> <observationRange> <text>45-117</text> </observationRange& gt; </referenceRange> </observation> </ component> </organizer> </entry> <entry> < organizer moodCode="EVN" classCode="BATTERY"> < templateId root="2.16.840.1.359244.10.20.22.4.1" /> <id nullFlavor="NA" /> <codecodeSystem="local" code=& quot;GLUMON" displayName="GLUCOSE (POC)" /> <statusCode code="completed" /> <component> <observation moodCode="EVN" classCode="OBS"> <templateId root="2.16.840.1.621026.10.20.22.4.2" /> <id nullFlavor ="NA" /> <code codeSystem="local" code=" GLUMON" displayName="GLUCOSE (POC)" /> < statusCode code="completed" /> <effectiveTime value=& quot;[id number]" /> <value unit="mg/dL" xsi:type ="PQ" value="180" /> <interpretationCode codeSystem="local" code="*" /> < referenceRange> <observationRange> <text> 70-99</text> </observationRange> </referenceRange& gt; </observation> </component> </organizer> & lt;/entry> <entry> <organizer moodCode="EVN" classCode ="BATTERY"> <templateId root=" [id number]" /> <id nullFlavor="NA&quot ; /> <code codeSystem="local" code="GLUMON" displayName="GLUCOSE (POC)" /> <statusCode code=" completed" /> <component> <observation moodCode=& quot;EVN" classCode="OBS"> <templateId root=" 2.16.840.1.621250.10.20.22.4.2" /> <id nullFlavor="NA& quot; /> <code codeSystem="local" code="GLUMON& quot; displayName="GLUCOSE (POC)" /> <statusCode code=& quot;completed" /> <effectiveTime value="720759806091& quot; /> <value unit="mg/dL" xsi:type="PQ" value="206" /> <interpretationCode codeSystem=" local" code="*" /> <referenceRange> < observationRange> <text>70-99</text> < /observationRange> </referenceRange> </observation& gt; </component> </organizer> </entry> <entry&gt ; <organizer moodCode="EVN" classCode="BATTERY"> <templateId root="2.16.840.1.686748.10.20.22.4.1" /> & lt;id nullFlavor="NA" /> <code codeSystem="local&quot ; code="GLUMON" displayName="GLUCOSE (POC)" /> < statusCode code="completed" /> <component> < observation moodCode="EVN" classCode="OBS"> < templateId root="2.16.840.1.961623.10.20.22.4.2" /> < id nullFlavor="NA" /> <code codeSystem="local&quot ; code="GLUMON" displayName="GLUCOSE (POC)" /> & lt;statusCode code="completed" /> <effectiveTime value=" 903425625295" /> <value unit="mg/dL" xsi:type=& quot;PQ" value="217" /> <interpretationCode codeSystem="local" code="*" /> < referenceRange> <observationRange> <text> 70-99</text> </observationRange> </ referenceRange> </observation> </component> </ organizer> </entry> <entry> <organizer moodCode="EVN " classCode="BATTERY"><templateId root=" 2.16.840.1.543892.10.20.22.4.1" /> <id nullFlavor="NA&quot ; /> <code codeSystem="local" code="GLUMON" displayName="GLUCOSE (POC)" /> <statusCode code=" completed" /> <component> <observation moodCode=" EVN" classCode="OBS"> <templateId root=" 2.16.840.1.813998.10.20.22.4.2" /> <id nullFlavor="NA& quot; /> <code codeSystem="local" code="GLUMON&quot ; displayName="GLUCOSE (POC)" /> <statusCode code=&quot ;completed" /> <effectiveTime value="258627147335&quot ; /> <value unit="mg/dL" xsi:type="PQ" value= "196" /> <interpretationCode codeSystem="local& quot; code="*" /> <referenceRange> < observationRange> <text>70-99</text> < /observationRange> </referenceRange> </observation& gt; </component> </organizer> </entry> <entry&gt ; <organizer moodCode="EVN" classCode="BATTERY"> <templateId root="2.16.840.1.048925.10.20.22.4.1" /> & lt;id nullFlavor="NA" /> <code codeSystem="local&quot ; code="GLUMON" displayName="GLUCOSE (POC)" /> < statusCode code="completed" /> <component> < observation moodCode="EVN" classCode="OBS"> < templateId root="2.16.840.1.666253.10.20.22.4.2" /> < id nullFlavor="NA" /> <code codeSystem="local&quot ; code="GLUMON" displayName="GLUCOSE (POC)" /> & lt;statusCode code="completed" /> <effectiveTime value= "840609718892" /> <value unit="mg/dL" xsi: type="PQ" value="187" /> <interpretationCode codeSystem="local" code="*" /> < referenceRange> <observationRange> <text> 70-99</text> </observationRange> </referenceRange > </observation> </component> </organizer> </entry> <entry> <organizer moodCode="EVN" classCode="BATTERY"> <templateId root=" 2.16.840.1.599355.10.20.22.4.1" /> <id nullFlavor="NA&quot ; /> <code codeSystem="local" code="CBCD" displayName="CBC W/DIFF" /> <statusCode code=" completed" /> <component> <observation moodCode=& quot;EVN" classCode="OBS"> <templateId root=" 2.16.840.1.314860.10.20.22.4.2" /> <id nullFlavor="NA&quot ; /> <code codeSystem="local" code="BA#" displayName="BASOPHIL #" /> <statusCode code=" completed" /> <effectiveTime value="713197358555" /> <value unit="k/cumm" xsi:type="PQ" value=& quot;0.1" /> <referenceRange> < observationRange> <text>0.0-0.2</text> & lt;/observationRange> </referenceRange> </ observation> </component> <component> < observation moodCode="EVN" classCode="OBS"> < templateId root="2.16.840.1.328439.10..22.4.2" /> < id nullFlavor="NA" /> <code codeSystem="local&quot ; code="BA%"displayName="BASOPHIL %" /> <statusCode code="completed" /> < effectiveTime value="234596391953" /> <value unit=&quot ;%" xsi:type="PQ" value="1" /> < referenceRange> <observationRange> <text>0-1&lt ;/text> </observationRange> </referenceRange&gt ; </observation> </component> <component> <observation moodCode="EVN" classCode="OBS"> &lt ;templateId root="2.16.840.1.136060.10..22.4.2" /> < id nullFlavor="NA" /> <code codeSystem="local&quot ; code="CBCCOM" displayName="COMMENT" /> < statusCode code="completed" /> <effectiveTime value=& quot;242566607606" /> <value unit="" xsi:type=& quot;PQ" value="REVIEWED" /> <referenceRange> <observationRange> <text /> </ observationRange> </referenceRange> </observation&gt ; </component> <component> <observationmoodCode= "EVN" classCode="OBS"> <templateId root=&quot ;2.16.840.1.485781.10.20.22.4.2" /> <id nullFlavor="NA& quot; /> <code codeSystem="local" code="EO#" displayName="EOSINOPHIL #" /> <statusCode code=" completed" /> <effectiveTime value="362697657191" /> <value unit="k/cumm" xsi:type="PQ" value=& quot;0.3" /> <referenceRange> < observationRange> <text>0.1-0.5</text> & lt;/observationRange> </referenceRange> </ observation> </component> <component> < observation moodCode="EVN" classCode="OBS"> < templateId root="2.16.840.1.991250.10.20.22.4.2" /> < id nullFlavor="NA" /> <code codeSystem="local&quot ; code="EO%" displayName="EOSINOPHIL %" /&gt ; <statusCode code="completed" /> < effectiveTime value="946037630566" /> <value unit=&quot ;%" xsi:type="PQ" value="3" /> < referenceRange> <observationRange> <text> 2-4</text> </observationRange> </ referenceRange> </observation> </component> < component> <observation moodCode="EVN" classCode=" OBS"> <templateId root="2.16.840.1.159976.10.20.22.4.2& quot; /> <id nullFlavor="NA" /> <code codeSystem="local" code="GR#" displayName="GRANULOCYTE #" /> <statusCode code="completed" /> <effectiveTime value="953412385210" /> <value unit=& quot;k/cumm" xsi:type="PQ" value="7.0" /> & lt;referenceRange> <observationRange> <text& gt;2.0-9.0</text> </observationRange> </ referenceRange> </observation> </component> < component> <observation moodCode="EVN" classCode=" OBS"> <templateId root="2..840.1.260855.10..22.4.2& quot; /> <id nullFlavor="NA" /> <code codeSystem= "local" code="GR%" displayName="GRANULOCYTE & amp;#37;" /> <statusCode code="completed" /> <effectiveTime value="250731493724" /> < value unit="%" xsi:type="PQ" value="73" /& gt; <referenceRange> <observationRange> <text>50-75</text> </observationRange> </ referenceRange> </observation> </component> < component> <observation moodCode="EVN" classCode=" OBS"> <templateId root="2.16.840.1.248444.10.20.22.4.2& quot; /><id nullFlavor="NA" /> <code codeSystem=& quot;local" code="LY#" displayName="LYMPHOCYTE #" /&gt ; <statusCode code="completed" /> < effectiveTime value="453671208232" /> <value unit=&quot ;k/cumm" xsi:type="PQ" value="1.1" /> < referenceRange> <observationRange> <text>1.0-4.0 </text> </observationRange> </referenceRange& gt; </observation> </component> <component> <observation moodCode="EVN" classCode="OBS"> &lt ;templateId root="2.16.840.1.646026.10.20.22.4.2" /> < id nullFlavor="NA" /> <code codeSystem="local&quot ; code="LY%" displayName="LYMPHOCYTE %" /&gt ; <statusCode code="completed" /> < effectiveTime value="739542388123" /> <value unit=&quot ;%" xsi:type="PQ" value="11" /> &lt ;interpretationCode codeSystem="local" code="*" /> <referenceRange> <observationRange> < text>20-30</text> </observationRange> </ referenceRange> </observation> </component> < component> <observation moodCode="EVN" classCode=" OBS"> <templateId root="2.16.840.1.003110.10.20.22.4.2& quot; /> <id nullFlavor="NA" /> <code codeSystem="local" code="MCH" displayName="MEAN CELL HGB" /> <statusCode code="completed" /> <effectiveTime value="430988300843" /> <value unit="pg" xsi:type="PQ" value="24.6" /> <interpretationCode codeSystem="local" code="*" /> <referenceRange> <observationRange> <text>27.0-33.0</text> </observationRange> </referenceRange> </observation> </component> <component> <observation moodCode="EVN" classCode=& quot;OBS"> <templateId root=" 2.16.840.1.851864.10.20.22.4.2" /> <id nullFlavor="NA& quot; /> <code codeSystem="local" code="MCHC&quot ; displayName="MEAN CELL HGB CONCENTRATION" /> <statusCode code="completed" /> <effectiveTime value=" 988171951601" /> <value unit="g/dL" xsi:type=&quot ;PQ" value="31.5" /> <interpretationCode codeSystem="local" code="*" /> <referenceRange> <observationRange> <text>32.0-37.0</text > </observationRange> </referenceRange> </observation> </component> <component> & lt;observation moodCode="EVN" classCode="OBS"> & lt;templateId root="2.16.840.1.968502.10.20.22.4.2" /> &lt ;id nullFlavor="NA" /> <code codeSystem="local& quot; code="MCV" displayName="MEAN CELL VOLUME" /> <statusCode code="completed" /> <effectiveTime value="236614678938" /> <value unit="fl" xsi: type="PQ" value="78.0" /> < interpretationCode codeSystem="local" code="*" /> <referenceRange> <observationRange> <text& gt;80.0-100.0</text> </observationRange> </ referenceRange> </observation> </component> < component> <observation moodCode="EVN" classCode=" OBS"> <templateId root="2.16.840.1.170856.10.20.22.4.2& quot; /> <id nullFlavor="NA" /> <code codeSystem="local" code="MO#" displayName="MONOCYTE #& quot; /> <statusCode code="completed" />< effectiveTime value="886729876085" /> <value unit=&quot ;k/cumm" xsi:type="PQ" value="1.1" /> < interpretationCode codeSystem="local" code="*" /> <referenceRange> <observationRange> < text>0.1-1.0</text> </observationRange> </ referenceRange> </observation> </component> < component> <observation moodCode="EVN" classCode=" OBS"> <templateId root="2.16.840.1.738870.10.20.22.4.2& quot; /> <id nullFlavor="NA" /> <code codeSystem= "local" code="MO%" displayName="MONOCYTE &# 37;" /> <statusCode code="completed" /> <effectiveTime value="228629114348" /> <value unit="%" xsi:type="PQ" value="11" /> <interpretationCode codeSystem="local" code="*" / > <referenceRange> <observationRange> <text>4-6</text> </observationRange> </referenceRange> </observation> </component> & lt;component> <observation moodCode="EVN" classCode=&quot ;OBS"> <templateId root="2.16.840.1.023109.10.20.22.4.2 " /> <id nullFlavor="NA" /> <code codeSystem="local" code="RBC" displayName="RED BLOOD CELL" /> <statusCode code="completed" /> <effectiveTime value="531983032706" /> <value unit="m/cumm" xsi:type="PQ" value="3.82" /> <interpretationCode codeSystem="local" code="*" /&gt ; <referenceRange> <observationRange> <text>4.00-6.00</text> </observationRange> </referenceRange> </observation></component> & lt;component> <observation moodCode="EVN" classCode=&quot ;OBS"> <templateId root="2.16.840.1.099299.10.20.22.4.2 " /> <id nullFlavor="NA" /> <code codeSystem="local" code="RDW" displayName="RED CELL DISTRIBUTION WIDTH" /> <statusCode code="completed&quot ; /> <effectiveTime value="011599161236" /> <value unit="%" xsi:type="PQ" value="18.2& quot; /> <interpretationCode codeSystem="local" code=& quot;*" /> <referenceRange> < observationRange> <text>11.0-15.6</text> </observationRange> </referenceRange> </ observation> </component> <component> < observation moodCode="EVN" classCode="OBS"> < templateId root="2.16.840.1.678664.10.20.22.4.2" /> < idnullFlavor="NA" /> <code codeSystem="local&quot ; code="WBC" displayName="WHITE BLOOD CELL" /> & lt;statusCode code="completed" /> <effectiveTime value= "404309488748" /> <value unit="k/cumm" xsi: type="PQ" value="9.6" /> <referenceRange> <observationRange> <text>5.0-10.0</text> </observationRange> </referenceRange> </ observation> </component> <component> < observation moodCode="EVN" classCode="OBS"> < templateId root="2.16.840.1.631392.10.20.22.4.2" /> < id nullFlavor="NA" /> <code codeSystem="local&quot ; code="HGBT" displayName="HEMOGLOBIN" /> < statusCode code="completed" /> <effectiveTime value=& quot;257171553991" /> <value unit="gm/dL" xsi:type ="PQ" value="9.4" /> <interpretationCode codeSystem="local" code="*" /> < referenceRange> <observationRange> <text>12.0- 16.0</text> </observationRange> </ referenceRange> </observation> </component> < component> <observation moodCode="EVN" classCode=" OBS"> <templateId root="2.16.840.1.399977.10.20.22.4.2& quot; /> <id nullFlavor="NA" /> <code codeSystem="local" code="HCTT" displayName="HEMATOCRIT& quot; /> <statusCode code="completed" /> < effectiveTime value="451262464221" /> <value unit=&quot ;%" xsi:type="PQ" value="29.8" /> & lt;interpretationCode codeSystem="local" code="*" /> <referenceRange> <observationRange> < text>37.0-47.0</text> </observationRange> &lt ;/referenceRange> </observation> </component> & lt;component> <observation moodCode="EVN" classCode=&quot ;OBS"> <templateId root="2.16.840.1.304183.10.20.22.4.2 " /> <id nullFlavor="NA" /> <code codeSystem="local" code="PLT" displayName="PLATELET COUNT" /> <statusCode code="completed" /> <effectiveTime value="476245962216" /> <value unit="k/cumm" xsi:type="PQ" value="300" /> <referenceRange> <observationRange> & lt;text>150-400</text> </observationRange> </ referenceRange> </observation> </component> </ organizer> </entry> <entry> <organizer moodCode="EVN " classCode="BATTERY"> <templateId root=" 2.16.840.1.673867.10.20.22.4.1" /> <id nullFlavor="NA&quot ; /> <code codeSystem="local" code="MORPH" displayName="MORPHOLOGY" /> <statusCode code=" completed" /> <component> <observation moodCode=& quot;EVN" classCode="OBS"> <templateId root=" 2.16.840.1.987898...22.4.2" /> <id nullFlavor="NA&quot ; /> <code codeSystem="local" code="RMORPH" displayName="RBC MORPH" /> <statusCode code=" completed" /> <effectiveTime value="196481467713" /> <value unit="" xsi:type="PQ" value=" NOTED" /> <referenceRange> <observationRange&gt ; <text /> </observationRange> </ referenceRange> </observation> </component> </ organizer> </entry> <entry> <organizer moodCode="EVN " classCode="BATTERY"> <templateId root=" 2.16.840.1.315457.10..22.4.1" /> <id nullFlavor="NA&quot ; /> <code codeSystem="local" code="METABC" displayName="METABOLIC PANEL, COMPREHN" /> <statusCode code ="completed" /> <component> <observation moodCode="EVN" classCode="OBS"> <templateId root="2.16.840.1.115379.10.20.22.4.2" /> <id nullFlavor ="NA" /> <code codeSystem="local" code=" K" displayName="POTASSIUM" /> <statusCode code=& quot;completed" /> <effectiveTime value="619519406341& quot; /> <value unit="mmol/L" xsi:type="PQ" value="3.7" /> <referenceRange> < observationRange> <text>3.5-5.3</text> & lt;/observationRange> </referenceRange> </observation> </component> <component> <observation moodCode=& quot;EVN" classCode="OBS"> <templateId root=" 2.16.840.1.305332.10.20.22.4.2" /> <id nullFlavor="NA& quot; /> <code codeSystem="local" code="eGFR&quot ; displayName="EST GFR (MDRD)" /> <statusCode code=& quot;completed" /> <effectiveTime value="858365278182& quot; /> <value unit="mL/min" xsi:type="PQ" value="> 60" /> <referenceRange> & lt;observationRange> <text>> 59</text> </observationRange> </referenceRange> </ observation> </component> <component> < observation moodCode="EVN" classCode="OBS"> < templateId root="2.16.840.1.632192.10.20.22.4.2" /> < id nullFlavor="NA" /> <code codeSystem="local" code="GAP" displayName="ANION GAP"/> < statusCode code="completed" /> <effectiveTime value=& quot;811394662576" /> <value unit="mmol/L" xsi: type="PQ" value="8" /> <referenceRange> <observationRange> <text>5-15</text> </observationRange> </referenceRange> </ observation> </component> <component> < observation moodCode="EVN" classCode="OBS"> < templateId root="2.16.840.1.818692.10.20.22.4.2" /> < id nullFlavor="NA" /> <code codeSystem="local&quot ; code="eCrCl" displayName="EST CrCl (CG)" /> & lt;statusCode code="completed" /> <effectiveTime value= "326860390411"/> <value unit="mL/min" xsi: type="PQ" value="> 60" /> < referenceRange> <observationRange> <text> > 59</text> </observationRange> </ referenceRange> </observation> </component> < component> <observation moodCode="EVN" classCode=" OBS"> <templateId root="2.16.840.1.848830.10.20.22.4.2& quot; /> <id nullFlavor="NA" /> <code codeSystem="local" code="GLU" displayName="GLUCOSE&quot ; /> <statusCode code="completed" /> < effectiveTime value="091108048802" /> <value unit="mg/dL " xsi:type="PQ" value="175" /> < interpretationCode codeSystem="local" code="*" /> <referenceRange> <observationRange> < text>70-99</text> </observationRange> </ referenceRange> </observation> </component> < component> <observation moodCode="EVN" classCode=" OBS"> <templateId root="2.16.840.1.855218.10.20.22.4.2& quot; /> <id nullFlavor="NA" /> <code codeSystem="local" code="CA" displayName="CALCIUM&quot ; /> <statusCode code="completed" /> < effectiveTime value="697831691118" /> <value unit=&quot ;mg/dL" xsi:type="PQ" value="8.3" /> < interpretationCode codeSystem="local" code="*" /> <referenceRange> <observationRange> < text>8.5-10.1</text> </observationRange> < /referenceRange> </observation> </component> &lt ;component> <observation moodCode="EVN" classCode=" OBS"> <templateId root="2.16.840.1.980528.10.20.22.4.2& quot; /> <id nullFlavor="NA" /><code codeSystem=& quot;local" code="BUN" displayName="BLOOD UREA NITROGEN&quot ; /> <statusCode code="completed" /> < effectiveTime value="658758457365" /> <value unit=&quot ;mg/dL" xsi:type="PQ" value="8" /> < referenceRange> <observationRange> <text> 7-20</text> </observationRange> </ referenceRange> </observation> </component> < component> <observation moodCode="EVN" classCode=" OBS"> <templateId root="2.16.840.1.534071.10.20.22.4.2& quot; /> <id nullFlavor="NA" /> <code codeSystem="local" code="CREAT" displayName="CREATININE " /> <statusCode code="completed" /> & lt;effectiveTime value="970934365671" /> <value unit=& quot;mg/dL" xsi:type="PQ" value="0.7" /> < referenceRange> <observationRange> <text> 0.6-1.0</text> </observationRange> </ referenceRange> </observation> </component> < component> <observation moodCode="EVN" classCode=" OBS"> <templateId root="2.16.840.1.842225.10.20.22.4.2& quot; /> <id nullFlavor="NA" /> <code codeSystem="local" code="NA" displayName="SODIUM" /> <statusCode code="completed" /> < effectiveTime value="405574121711" /> <value unit=&quot ;mmol/L" xsi:type="PQ" value="132" /> < interpretationCode codeSystem="local" code="*" /> <referenceRange><observationRange> <text>135- 148</text> </observationRange> </ referenceRange> </observation> </component> < component> <observation moodCode="EVN" classCode=" OBS"><templateId root="2.16.840.1.790193.10.20.22.4.2" /&gt ; <id nullFlavor="NA" /> <code codeSystem=& quot;local" code="CL" displayName="CHLORIDE" /> <statusCode code="completed" /> < effectiveTime value="085861337261" /> <value unit=&quot ;mmol/L" xsi:type="PQ" value="99" /> < referenceRange> <observationRange> <text> 98-110</text> </observationRange> </ referenceRange> </observation> </component> < component> <observation moodCode="EVN" classCode=" OBS"> <templateId root="2.16.840.1.616012.10.20.22.4.2& quot; /> <id nullFlavor="NA" /><code codeSystem=& quot;local" code="AST" displayName="AST/SGOT" /> <statusCode code="completed" /> <effectiveTime value="761397612296" /> <value unit="Units/L&quot ; xsi:type="PQ" value="59" /> < interpretationCode codeSystem="local" code="*" /> &lt ;referenceRange> <observationRange> <text&gt ;10-37</text> </observationRange> </ referenceRange> </observation> </component> < component> <observation moodCode="EVN" classCode=" OBS"> <templateId root="2.16.840.1.119924.10.20.22.4.2& quot; /> <id nullFlavor="NA" /> <code codeSystem="local" code="ALT" displayName="ALT/SGPT& quot; /> <statusCode code="completed" /> & lt;effectiveTime value="797438361214" /> <value unit=& quot;Units/L" xsi:type="PQ" value="125" /> <interpretationCode codeSystem="local" code="*" /> <referenceRange> <observationRange> <text> < 66</text> </observationRange> </ referenceRange> </observation> </component> < component> <observation moodCode="EVN" classCode=" OBS"> <templateId root="2.16.840.1.639781.10.20.22.4.2&quot ; /> <id nullFlavor="NA" /> <code codeSystem="local" code="CO2" displayName="CARBON DIOXIDE" /> <statusCode code="completed" /> <effectiveTime value="737862086151" /> < value unit="mmol/L" xsi:type="PQ" value="25" /&gt ; <referenceRange> <observationRange> <text>21-32</text> </observationRange> </ referenceRange> </observation> </component> < component> <observation moodCode="EVN" classCode="OBS "> <templateId root="2.16.840.1.717994.10.20.22.4.2& quot; /> <id nullFlavor="NA" /> <code codeSystem="local" code="TP" displayName="TOTAL PROTEIN " /> <statusCode code="completed" /> & lt;effectiveTime value="579548461062" /> <value unit=& quot;gm/dL" xsi:type="PQ" value="6.5" /> & lt;referenceRange> <observationRange> <text>6.4- 8.2</text> </observationRange> </ referenceRange> </observation> </component> < component> <observation moodCode="EVN" classCode=" OBS"> <templateId root="2.16.840.1.845506.10.20.22.4.2& quot; /> <id nullFlavor="NA" /> <code codeSystem="local" code="ALB" displayName="ALBUMIN&quot ; /> <statusCode code="completed" /> < effectiveTime value="163593755418" /> <value unit=&quot ;gm/dL" xsi:type="PQ" value="2.4" /> < interpretationCode codeSystem="local" code="*" /> <referenceRange> <observationRange> < text>3.4-5.0</text> </observationRange> </ referenceRange> </observation> </component> < component> <observation moodCode="EVN" classCode=" OBS"> <templateId root="2.16.840.1.366985.10.20.22.4.2& quot; /> <id nullFlavor="NA" /> <code codeSystem="local" code="BILTOT" displayName="BILI TOTAL" /> <statusCode code="completed" /> <effectiveTime value="815053744985" /> <value unit="mg/dL" xsi:type="PQ" value="0.5" /> <referenceRange> <observationRange> < text>0.0-1.0</text> </observationRange> </ referenceRange> </observation> </component> < component> <observation moodCode="EVN" classCode=" OBS"> <templateId root="2.16.840.1.071993.10.20.22.4.2& quot; /> <id nullFlavor="NA" /> <code codeSystem="local" code="ALKP" displayName="ALKALINE PHOSPHATASE TOTAL" /> <statusCode code="completed&quot ; /> <effectiveTime value="807311978048" /> <value unit="IU/L" xsi:type="PQ" value="196" /> <interpretationCode codeSystem="local" code="*& quot; /> <referenceRange> <observationRange> <text>45-117</text> </observationRange& gt; </referenceRange> </observation> </component > </organizer> </entry> <entry> <organizer moodCode="EVN" classCode="BATTERY"> <templateId root="2.16.840.1.081524.10.20.22.4.1" /> <id nullFlavor=& quot;NA" /> <code codeSystem="local" code="GLUMON " displayName="GLUCOSE (POC)" /> <statusCode code=& quot;completed" /> <component> <observation moodCode="EVN" classCode="OBS"> <templateId root="2.16.840.1.451200.10.20.22.4.2" /> <id nullFlavor ="NA" /> <code codeSystem="local" code=" GLUMON" displayName="GLUCOSE (POC)" /> < statusCode code="completed" /> <effectiveTime value=& quot;974887084939" /> <value unit="mg/dL" xsi:type ="PQ" value="191" /> <interpretationCode codeSystem="local"code="*" /> <referenceRange > <observationRange> <text>70-99</text> </observationRange> </referenceRange> </ observation> </component> </organizer> </entry> & lt;entry> <organizer moodCode="EVN" classCode="BATTERY& quot;> <templateId root="2.16.840.1.768841.10.20.22.4.1" /& gt; <id nullFlavor="NA" /> <code codeSystem=" local" code="GLUMON" displayName="GLUCOSE (POC)" /> <statusCode code="completed" /> <component> <observation moodCode="EVN" classCode="OBS"> <templateId root="2.16.840.1.355787.10.20.22.4.2" /> <id nullFlavor="NA" /> <code codeSystem=" local" code="GLUMON" displayName="GLUCOSE (POC)" /> <statusCode code="completed" /> < effectiveTime value="314995277099" /> <value unit=&quot ;mg/dL" xsi:type="PQ" value="224" /> < interpretationCode codeSystem="local" code="*" /> <referenceRange> <observationRange> < text>70-99</text> </observationRange> </ referenceRange> </observation> </component> </ organizer> </entry> <entry> <organizer moodCode="EVN " classCode="BATTERY"> <templateId root=" [id number]" /> <id nullFlavor="NA&quot ; /> <code codeSystem="local" code="GLUMON" displayName="GLUCOSE (POC)" /> <statusCode code=" completed" /> <component> <observation moodCode=& quot;EVN" classCode="OBS"> <templateId root=" 2.16.840.1.051885.10.20.22.4.2" /> <id nullFlavor="NA& quot; /> <code codeSystem="local" code="GLUMON& quot; displayName="GLUCOSE (POC)" /> <statusCode code=& quot;completed" /> <effectiveTime value="[id number]& quot; /> <value unit="mg/dL" xsi:type="PQ" value= "194" /> <interpretationCode codeSystem="local& quot; code="*" /> <referenceRange> < observationRange> <text>70-99</text> < /observationRange> </referenceRange> </observation& gt; </component> </organizer> </entry> <entry&gt ; <organizer moodCode="EVN" classCode="BATTERY"> <templateId root="2.16.840.1.251997.10.20.22.4.1" /> & lt;id nullFlavor="NA" /> <code codeSystem="local&quot ; code="GLUMON" displayName="GLUCOSE (POC)" /> < statusCode code="completed" /> <component> < observation moodCode="EVN" classCode="OBS"> < templateId root="2.16.840.1.016158.10.20.22.4.2" /><id nullFlavor="NA" /> <code codeSystem="local" code="GLUMON" displayName="GLUCOSE (POC)" /> &lt ;statusCode code="completed" /> <effectiveTime value=& quot;211176865833" /> <value unit="mg/dL" xsi:type ="PQ" value="242" /> <interpretationCode codeSystem="local" code="*" /> < referenceRange> <observationRange> <text> 70-99</text> </observationRange> </ referenceRange> </observation> </component> </ organizer> </entry> <entry> <organizer moodCode="EVN " classCode="BATTERY"> <templateId root=" 2.16.840.1.433948.10.20.22.4.1" /> <id nullFlavor="NA&quot ; /> <code codeSystem="local" code="GLUMON" displayName="GLUCOSE (POC)" /> <statusCode code=" completed" /> <component> <observation moodCode=& quot;EVN" classCode="OBS"> <templateId root=" 2.16.840.1.423952.10.20.22.4.2" /> <id nullFlavor="NA& quot; /> <code codeSystem="local" code="GLUMON& quot; displayName="GLUCOSE (POC)" /> <statusCode code=& quot;completed" /> <effectiveTime value="835391491734& quot; /> <value unit="mg/dL" xsi:type="PQ" value="170" /> <interpretationCode codeSystem=" local" code="*" /> <referenceRange> <observationRange> <text>70-99</text> </ observationRange> </referenceRange> </observation&gt ; </component> </organizer> </entry> <entry> <organizer moodCode="EVN" classCode="BATTERY"> <templateId root="2.16.840.1.708560.10.20.22.4.1" /> < id nullFlavor="NA" /> <code codeSystem="local" code="GLUMON" displayName="GLUCOSE (POC)" /> < statusCode code="completed" /> <component> < observation moodCode="EVN" classCode="OBS"> < templateId root="2.16.840.1.426652.10.20.22.4.2" /> < id nullFlavor="NA" /> <code codeSystem="local&quot ; code="GLUMON" displayName="GLUCOSE (POC)" /> & lt;statusCode code="completed" /> <effectiveTime value= "383483040407" /> <value unit="mg/dL" xsi: type="PQ" value="257" /> <interpretationCode codeSystem="local" code="*" /> < referenceRange> <observationRange> <text> 70-99</text> </observationRange> </ referenceRange> </observation> </component> </ organizer> </entry> <entry> <organizer moodCode="EVN " classCode="BATTERY"> <templateId root=" 2.16.840.1.004447.10.20.22.4.1" /> <id nullFlavor="NA&quot ; /> <code codeSystem="local" code="GLUMON" displayName="GLUCOSE (POC)" /> <statusCode code=" completed" /> <component> <observation moodCode=& quot;EVN" classCode="OBS"> <templateId root=" 2.16.840.1.873843.10.20.22.4.2" /> <id nullFlavor="NA& quot; /> <code codeSystem="local" code="GLUMON& quot; displayName="GLUCOSE (POC)" /> <statusCode code=& quot;completed" /> <effectiveTime value="122259731093& quot; /> <value unit="mg/dL" xsi:type="PQ" value ="266" /><interpretationCode codeSystem="local" code=& quot;*" /> <referenceRange> < observationRange> <text>70-99</text> < /observationRange> </referenceRange> </observation& gt; </component> </organizer> </entry> <entry&gt ; <organizer moodCode="EVN" classCode="BATTERY"> <templateId root="2.16.840.1.730196.10.20.22.4.1" /> & lt;id nullFlavor="NA" /> <code codeSystem="local&quot ; code="GLUMON" displayName="GLUCOSE (POC)" /> < statusCode code="completed" /> <component> < observation moodCode="EVN" classCode="OBS"> < templateId root="2.16.840.1.310192.10.20.22.4.2" /> <id nullFlavor="NA" /> <code codeSystem="local" code="GLUMON" displayName="GLUCOSE (POC)" /> &lt ;statusCode code="completed" /> <effectiveTime value=& quot;504875315503" /> <value unit="mg/dL" xsi:type ="PQ" value="222" /> <interpretationCode codeSystem="local" code="*" /> < referenceRange> <observationRange> <text> 70-99</text> </observationRange> </ referenceRange> </observation> </component> </ organizer> </entry> <entry> <organizer moodCode="EVN " classCode="BATTERY"> <templateId root=" 2.16.840.1.068698.10.20.22.4.1" /> <id nullFlavor="NA&quot ; /> <code codeSystem="local" code="GLUMON" displayName="GLUCOSE (POC)" /> <statusCode code=" completed" /> <component> <observation moodCode=& quot;EVN" classCode="OBS"> <templateId root=" 2.16.840.1.439672.10.20.22.4.2" /> <id nullFlavor="NA& quot; /> <code codeSystem="local" code="GLUMON& quot; displayName="GLUCOSE (POC)" /> <statusCode code=& quot;completed" /> <effectiveTime value="255652796241& quot; /> <value unit="mg/dL" xsi:type="PQ" value="200" /> <interpretationCode codeSystem=" local" code="*" /> <referenceRange> <observationRange> <text>70-99</text> </ observationRange> </referenceRange> </observation&gt ; </component> </organizer> </entry> <entry> <organizer moodCode="EVN" classCode="BATTERY"> <templateId root="2.16.840.1.609453.10.20.22.4.1" /> < id nullFlavor="NA" /> <code codeSystem="local" code="GLUMON" displayName="GLUCOSE (POC)" /> < statusCode code="completed" /> <component> < observation moodCode="EVN" classCode="OBS"> < templateId root="2.16.840.1.964280.10.20.22.4.2" /> < id nullFlavor="NA" /> <code codeSystem="local&quot ; code="GLUMON" displayName="GLUCOSE (POC)" /> & lt;statusCode code="completed" /> <effectiveTime value= "042853896738" /> <value unit="mg/dL" xsi: type="PQ" value="266" /> <interpretationCode codeSystem="local" code="*" /> < referenceRange> <observationRange> <text> 70-99</text> </observationRange> </ referenceRange> </observation> </component> </ organizer> </entry> <entry> <organizer moodCode="EVN " classCode="BATTERY"> <templateId root=" 2.16.840.1.385971.10.20.22.4.1" /> <id nullFlavor="NA&quot ; /> <code codeSystem="local" code="GLUMON" displayName="GLUCOSE (POC)" /> <statusCode code=" completed" /> <component> <observation moodCode=& quot;EVN" classCode="OBS"> <templateId root=" 2.16.840.1.163605.10.20.22.4.2" /> <id nullFlavor="NA& quot; /> <code codeSystem="local" code="GLUMON& quot; displayName="GLUCOSE (POC)" /> <statusCode code=& quot;completed" /> <effectiveTime value="990828673321& quot; /> <value unit="mg/dL" xsi:type="PQ" value="124" /> <interpretationCode codeSystem="local" code="*" /> <referenceRange> < observationRange> <text>70-99</text> < /observationRange> </referenceRange> </observation& gt; </component> </organizer> </entry> <entry&gt ; <organizer moodCode="EVN" classCode="BATTERY"> <templateId root="2.16.840.1.342281.10.20.22.4.1" /> & lt;id nullFlavor="NA" /> <code codeSystem="local&quot ; code="GLUMON" displayName="GLUCOSE (POC)" /> < statusCode code="completed" /> <component> < observation moodCode="EVN" classCode="OBS"> < templateId root="2.16.840.1.869350.10.20.22.4.2" /> <id nullFlavor="NA" /> <code codeSystem="local" code="GLUMON" displayName="GLUCOSE (POC)" /> &lt ;statusCode code="completed" /> <effectiveTime value=& quot;903364126559" /> <value unit="mg/dL" xsi:type ="PQ" value="224" /> <interpretationCode codeSystem="local" code="*" /> < referenceRange> <observationRange> <text> 70-99</text> </observationRange> </ referenceRange> </observation> </component> </ organizer> </entry> <entry> <organizer moodCode="EVN " classCode="BATTERY"> <templateId root=" 2.16.840.1.771372.10.20.22.4.1" /> <id nullFlavor="NA&quot ; /> <code codeSystem="local" code="HGB" displayName="HEMOGLOBIN" /> <statusCode code=" completed" /> <component> <observation moodCode=& quot;EVN" classCode="OBS"> <templateId root=" 2.16.840.1.973747.10.20.22.4.2" /> <id nullFlavor="NA& quot; /> <code codeSystem="local" code="MCV" displayName="MEANCELL VOLUME" /> <statusCode code=&quot ;completed" /> <effectiveTime value="886047355234&quot ; /> <value unit="fl" xsi:type="PQ" value=& quot;82.0" /> <referenceRange> < observationRange> <text>80.0-100.0</text> </observationRange> </referenceRange> </ observation> </component> <component> <observation moodCode="EVN" classCode="OBS"> <templateId root="2.16.840.1.758887.10.20.22.4.2" /> <id nullFlavor ="NA" /> <code codeSystem="local" code="HGBT& quot; displayName="HEMOGLOBIN" /> <statusCode code=& quot;completed" /> <effectiveTime value="206522530980& quot; /> <value unit="gm/dL" xsi:type="PQ" value="13.8" /> <referenceRange> < observationRange> <text>12.0-16.0</text> </observationRange> </referenceRange> </ observation> </component> </organizer> </entry> & lt;entry> <organizer moodCode="EVN" classCode="BATTERY& quot;> <templateId root="2.16.840.1.219760.10.20.22.4.1" /& gt; <id nullFlavor="NA" /> <code codeSystem=" local" code="K" displayName="POTASSIUM" /> < statusCode code="completed" /> <component> < observation moodCode="EVN" classCode="OBS"> < templateId root="2.16.840.1.908786.10..22.4.2" /> < id nullFlavor="NA" /> <code codeSystem="local&quot ; code="K" displayName="POTASSIUM" /> < statusCode code="completed" /> <effectiveTime value=& quot;734079459421" /> <value unit="mmol/L" xsi: type="PQ" value="3.9" /> <referenceRange> <observationRange> <text>3.5-5.3</text> </observationRange> </referenceRange> < /observation> </component> </organizer> </entry> <entry> <organizer moodCode="EVN" classCode="BATTERY& quot;> <templateId root="2.16.840.1.896593.10.20.22.4.1" /& gt; <id nullFlavor="NA" /> <code codeSystem=" local" code="GLUMON" displayName="GLUCOSE (POC)" /> <statusCode code="completed" /> <component> <observation moodCode="EVN" classCode="OBS"> <templateId root="216.840.1.781629.10.20.22.4.2" /> <id nullFlavor="NA" /> <code codeSystem=" local" code="GLUMON" displayName="GLUCOSE (POC)" /> <statusCode code="completed" /> < effectiveTime value="575822707583" /> <value unit="mg/dL " xsi:type="PQ" value="184" /> < interpretationCode codeSystem="local" code="*" /> <referenceRange> <observationRange> < text>70-99</text> </observationRange> </ referenceRange> </observation> </component> </ organizer> </entry> <entry> <organizer moodCode="EVN " classCode="BATTERY"> <templateId root=" 2.16.840.1.875240.10.20.22.4.1"/> <id nullFlavor="NA" /> <code codeSystem="local" code="MRSAS" displayName="MRSA SURVEILLANCE SCREEN" /> <statusCode code= "completed" /> <component> <observation moodCode="EVN" classCode="OBS"> <templateId root="2.16.840.1.910596.10.20.22.4.2" /> <id nullFlavor=& quot;NA" /> <code codeSystem="local" code="MB " displayName="Microbiology" /> <statusCode code=& quot;completed" /> <effectiveTime value="766854397777& quot; /> <value xsi:type="ST" value="<pre>& lt;b>MRSA SURVEILLANCE SCREEN</b> See BelowMRSA SURVEILLANCE SCREEN(F) Claudia Date/Time: 06/29/2017 10:39 Johann Date/Time : 06/30/2017 07:16SOURCE: ANTERIOR NARESSPEC DESC: CALL REPORT, RCT T [facility] * CONTACT PRECAUTIONS SHOULD BE IMPLEMENTED 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)[facility] [place] [address]</pre>" /> <referenceRange&gt ; <observationRange> <text /> < /observationRange> </referenceRange> </observation&gt ; </component> </organizer> </entry> <entry> <organizer moodCode="EVN" classCode="BATTERY"> <templateId root="2.16.840.1.377995.10.20.22.4.1" /> < id nullFlavor="NA" /> <code codeSystem="local" code="GLUMON" displayName="GLUCOSE (POC)" /> < statusCode code="completed" /> <component> < observation moodCode="EVN" classCode="OBS">< templateId root="2.16.840.1.120389.10.20.22.4.2" /> < id nullFlavor="NA" /> <code codeSystem="local&quot ; code="GLUMON" displayName="GLUCOSE (POC)" /> & lt;statusCode code="completed" /> <effectiveTime value= "127339917115" /> <value unit="mg/dL" xsi: type="PQ" value="133" /> <interpretationCode codeSystem="local" code="*" /> < referenceRange> <observationRange> <text>70-99& lt;/text> </observationRange> </referenceRange& gt; </observation> </component> </organizer> & lt;/entry> <entry> <organizer moodCode="EVN" classCode ="BATTERY"> <templateId root=" 2.16.840.1.026149.10.20.22.4.1" /> <id nullFlavor="NA&quot ; /> <code codeSystem="local" code="CBCD" displayName="CBC W/DIFF" /> <statusCode code=" completed" /> <component> <observation moodCode=& quot;EVN" classCode="OBS"> <templateId root=" 2.16.840.1.864306.10.20.22.4.2" /> <id nullFlavor="NA& quot; /> <code codeSystem="local" code="BA#" displayName="BASOPHIL #" /> <statusCode code="completed& quot; /> <effectiveTime value="307923354823" /> <value unit="k/cumm" xsi:type="PQ" value="0.1& quot; /> <referenceRange> <observationRange> <text>0.0-0.2</text> </observationRange& gt; </referenceRange> </observation> </ component> <component> <observation moodCode="EVN& quot; classCode="OBS"> <templateId root=" 2.16.840.1.691876.10..22.4.2" /> <id nullFlavor="NA& quot; /> <code codeSystem="local" code="BA&#37 ;" displayName="BASOPHIL %" /> < statusCode code="completed" /> <effectiveTime value=& quot;245413932243" /> <value unit="%" xsi: type="PQ" value="0.7" /> <referenceRange> <observationRange> <text>0-1</text> </observationRange> </referenceRange> &lt ;/observation> </component> <component> < observation moodCode="EVN" classCode="OBS"> < templateId root="2.16.840.1.733151.10.20.22.4.2" /> < id nullFlavor="NA" /> <code codeSystem="local&quot ; code="EO#" displayName="EOSINOPHIL #" /> < statusCode code="completed" /> <effectiveTime value=& quot;777998133157" /><value unit="k/cumm" xsi:type="PQ " value="0.3" /> <referenceRange> & lt;observationRange> <text>0.1-0.5</text> & lt;/observationRange> </referenceRange> </ observation></component> <component> <observation moodCode="EVN" classCode="OBS"> <templateId root="2.16.840.1.375667.10.20.22.4.2" /> <id nullFlavor=& quot;NA" /> <code codeSystem="local" code="EO %" displayName="EOSINOPHIL %" /> < statusCode code="completed" /> <effectiveTime value=& quot;033048752254" /> <value unit="%" xsi: type="PQ" value="4.9" /> <interpretationCode codeSystem="local" code="*" /> < referenceRange> <observationRange> <text> 2-4</text> </observationRange> </ referenceRange> </observation> </component> < component> <observation moodCode="EVN" classCode=" OBS"> <templateId root="2.16.840.1.438517.10..22.4.2& quot; /> <id nullFlavor="NA" /> <code codeSystem="local" code="GR#" displayName="GRANULOCYTE #" /> <statusCode code="completed" /> < effectiveTime value="061734375835" /> <value unit=&quot ;k/cumm" xsi:type="PQ" value="4.5" /> < referenceRange> <observationRange> <text> 2.0-9.0</text> </observationRange> </ referenceRange> </observation> </component> < component> <observation moodCode="EVN" classCode=" OBS"> <templateId root="2.16.840.1.920384.10..22.4.2& quot; /> <id nullFlavor="NA" /> <code codeSystem="local" code="GR%" displayName=" GRANULOCYTE %" /> <statusCode code="completed& quot; /> <effectiveTime value="367734966334" /> < value unit="%" xsi:type="PQ" value="65.0" /> <referenceRange> <observationRange> <text>50-75</text> </observationRange> </referenceRange> </observation> </component&gt ; <component> <observation moodCode="EVN" classCode="OBS"> <templateId root=" 2.16.840.1.714863.10.20.22.4.2" /> <id nullFlavor="NA& quot; /> <code codeSystem="local" code="LY#" displayName="LYMPHOCYTE #" /> <statusCode code=" completed" /> <effectiveTime value="981765707055" /> <value unit="k/cumm" xsi:type="PQ" value=& quot;0.8" /> <interpretationCode codeSystem="local&quot ; code="*" /> <referenceRange> < observationRange> <text>1.0-4.0</text> & lt;/observationRange> </referenceRange> </ observation> </component> <component> < observation moodCode="EVN" classCode="OBS"> < templateId root="2..840.1.644456.10..22.4.2" /> < id nullFlavor="NA" /> <code codeSystem="local&quot ; code="LY%" displayName="LYMPHOCYTE %" /&gt ; <statusCode code="completed" /> < effectiveTime value="853370631592" /> <value unit=&quot ;%" xsi:type="PQ" value="11.1" /> & lt;interpretationCode codeSystem="local" code="*"/> <referenceRange> <observationRange> &lt ;text>20-30</text> </observationRange> </ referenceRange> </observation> </component> < component> <observation moodCode="EVN" classCode=" OBS"> <templateId root="2.16.840.1.583652.10.20.22.4.2& quot; /> <id nullFlavor="NA" /> <code codeSystem="local" code="MCH" displayName="MEAN CELL HGB" /> <statusCode code="completed" /> <effectiveTime value="456653716349" /> <value unit=" pg" xsi:type="PQ" value="27.6" /> < referenceRange> <observationRange> <text> 27.0-33.0</text> </observationRange> </ referenceRange> </observation> </component> < component> <observation moodCode="EVN" classCode=" OBS"> <templateId root="2.16.840.1.891820.10.20.22.4.2& quot; /> <id nullFlavor="NA" /> <code codeSystem="local" code="MCHC" displayName="MEAN CELL HGB CONCENTRATION" /> <statusCode code="completed&quot ; /> <effectiveTime value="137566561643" /> <value unit="g/dL" xsi:type="PQ" value="33.0&quot ; /> <referenceRange> <observationRange> <text>32.0-37.0</text> </observationRange> </referenceRange> </observation></component> <component> <observation moodCode="EVN" classCode ="OBS"> <templateId root=" 2.16.840.1.147089.10..22.4.2" /> <id nullFlavor="NA" /> <code codeSystem="local" code="MCV" displayName="MEAN CELL VOLUME" /> <statusCode code=& quot;completed" /> <effectiveTime value="668366703486& quot; /> <value unit="fl" xsi:type="PQ" value ="83.9" /> <referenceRange> < observationRange> <text>80.0-100.0</text> </observationRange> </referenceRange> </ observation> </component> <component> < observation moodCode="EVN" classCode="OBS"> < templateId root="2.16.840.1.027599.10.20.22.4.2" /> < id nullFlavor="NA" /> <code codeSystem="local&quot ; code="MO#" displayName="MONOCYTE #" /> < statusCode code="completed" /> <effectiveTime value=" 185602009308" /> <value unit="k/cumm"xsi:type=& quot;PQ" value="1.2" /> <interpretationCode codeSystem="local" code="*" /> < referenceRange> <observationRange> <text> 0.1-1.0</text> </observationRange> </ referenceRange> </observation> </component> < component><observation moodCode="EVN" classCode="OBS"& gt; <templateId root="2.16.840.1.893902.10.20.22.4.2" /&gt ; <id nullFlavor="NA" /> <code codeSystem=" local" code="MO%" displayName="MONOCYTE %& quot; /> <statusCode code="completed" /> & lt;effectiveTime value="202292290681" /> <value unit=& quot;%" xsi:type="PQ" value="17.6" /> <interpretationCode codeSystem="local" code="*" /&gt ; <referenceRange> <observationRange> <text& gt;4-6</text> </observationRange> </ referenceRange> </observation> </component> < component> <observation moodCode="EVN" classCode=" OBS"> <templateId root="2.16.840.1.244342.10..22.4.2& quot; /> <id nullFlavor="NA" /> <code codeSystem="local" code="MPVT" displayName="MEAN PLATELET VOLUME" /> <statusCode code="completed" /> <effectiveTime value="024966843988" /> < value unit="fl" xsi:type="PQ" value="9.7" /> <referenceRange> <observationRange> <text>8.5-10.9</text> </observationRange> </referenceRange> </observation> </component> <component> <observation moodCode="EVN" classCode=& quot;OBS"> <templateId root=" 2.16.840.1.446625.10.20.22.4.2" /> <id nullFlavor="NA& quot; /> <code codeSystem="local" code="RBC" displayName="RED BLOOD CELL" /> <statusCodecode=" completed" /> <effectiveTime value="851809572787" /> <value unit="m/cumm" xsi:type="PQ" value=" 4.16" /><referenceRange> <observationRange> <text>4.00-6.00</text> </observationRange&gt ; </referenceRange> </observation> </ component> <component> <observation moodCode="EVN& quot; classCode="OBS"> <templateId root=" 2.16.840.1.874321.10.20.22.4.2" /> <id nullFlavor="NA& quot; /> <code codeSystem="local" code="RDW" displayName="RED CELL DISTRIBUTION WIDTH" /> < statusCodecode="completed" /> <effectiveTime value=& quot;913715436588" /> <value unit="%" xsi:type= "PQ" value="15.1" /> <referenceRange> <observationRange> <text>11.0-15.6</text> </observationRange> </referenceRange> </ observation> </component> <component> < observation moodCode="EVN"classCode="OBS"> < templateId root="2.16.840.1.718289.10.20.22.4.2" /> < id nullFlavor="NA" /> <code codeSystem="local&quot ; code="WBC" displayName="WHITE BLOOD CELL" /> & lt;statusCode code="completed" /> <effectiveTime value= "632174764091" /> <value unit="k/cumm" xsi: type="PQ" value="6.9" /> <referenceRange> <observationRange> <text>5.0-10.0</text& gt; </observationRange> </referenceRange> < /observation> </component> <component> < observation moodCode="EVN" classCode="OBS"> < templateId root="2.16.840.1.399449.10.20.22.4.2" /> <id nullFlavor="NA" /> <code codeSystem="local" code="HGBT" displayName="HEMOGLOBIN" /> < statusCode code="completed" /> <effectiveTime value=& quot;020606965533" /> <value unit="gm/dL" xsi:type ="PQ" value="11.5" /> <interpretationCode codeSystem="local" code="*" /> < referenceRange> <observationRange> <text> 12.0-16.0</text> </observationRange> </ referenceRange> </observation> </component> < component> <observation moodCode="EVN" classCode=" OBS"> <templateId root="2.16.840.1.157324.10.20.22.4.2& quot; /> <id nullFlavor="NA" /> <code codeSystem="local" code="HCTT" displayName="HEMATOCRIT& quot; /> <statusCode code="completed" /> & lt;effectiveTime value="395550387826" /> <value unit=& quot;%" xsi:type="PQ" value="34.9" /> <interpretationCode codeSystem="local" code="*" /&gt ; <referenceRange> <observationRange> <text& gt;37.0-47.0</text> </observationRange> </ referenceRange> </observation> </component> < component> <observation moodCode="EVN" classCode=" OBS"> <templateId root="2.16.840.1.833647.10..22.4.2& quot; /> <id nullFlavor="NA" /> < codecodeSystem="local" code="NRBC%" displayName=& quot;NRBC %" /> <statusCode code="completed& quot; /> <effectiveTime value="036227358064" /> <value unit="/100WBC" xsi:type="PQ" value="0.0 " /> <referenceRange> <observationRange&gt ; <text>0.0-0.0</text> </observationRange > </referenceRange> </observation> </ component> <component> <observation moodCode="EVN& quot; classCode="OBS"> <templateId root=" 2.16.840.1.051366.10.20.22.4.2" /> <id nullFlavor="NA& quot; /> <code codeSystem="local" code="NRBC#&quot ; displayName="NRBC #" /> <statusCode code=" completed" /> <effectiveTime value="588289214732" /> <value unit="k/cumm" xsi:type="PQ" value=& quot;0.00" /> <interpretationCode codeSystem="local" code="*" /> <referenceRange> < observationRange> <text>0.03-0.11</text> &lt ;/observationRange> </referenceRange> </observation& gt;</component> <component> <observation moodCode=& quot;EVN" classCode="OBS"> <templateId root=" 2.16.840.1.346398.10.20.22.4.2" /> <id nullFlavor="NA" /> <code codeSystem="local" code="PLTT" displayName="PLATELET COUNT" /> <statusCode code=" completed" /> <effectiveTime value="070564215828" /> <value unit="k/cumm" xsi:type="PQ" value=& quot;188" /> <referenceRange> < observationRange> <text>150-400</text> & lt;/observationRange> </referenceRange> </ observation> </component> <component> < observation moodCode="EVN" classCode="OBS"> < templateId root="2.16.840.1.636657.10.20.22.4.2" /> < id nullFlavor="NA" /> <code codeSystem="local&quot ; code="IG%" displayName="IMMATURE GRANULOCYTE %& quot; /> <statusCode code="completed" /> & lt;effectiveTime value="[id number]" /> <value unit=& quot;%" xsi:type="PQ" value="0.7" /> <interpretationCode codeSystem="local" code="*" /> <referenceRange> <observationRange> & lt;text>0.0-0.6</text> </observationRange> & lt;/referenceRange> </observation> </component> & lt;component> <observation moodCode="EVN" classCode=&quot ;OBS"> <templateId root="[id number]& quot; /> <id nullFlavor="NA" /> <code codeSystem="local" code="IG#" displayName="IMMATURE GRANULOCYTE #" /> <statusCode code="completed" /& gt; <effectiveTime value="[id number]" /> &lt ;value unit="k/cumm" xsi:type="PQ" value="0.05" /& gt; <referenceRange> <observationRange> < text>0.00-0.09</text> </observationRange> &lt ;/referenceRange> </observation> </component> < /organizer> </entry> <entry> <organizer moodCode=" EVN" classCode="BATTERY"> <templateId root=" 2.16.840.1.574977.10.20.22.4.1" /> <id nullFlavor="NA" /&gt ; <code codeSystem="local" code="LIVER" displayName= "HEPATIC FUNCTION PANEL" /> <statusCode code=" completed" /> <component> <observation moodCode=& quot;EVN" classCode="OBS"> <templateId root=" 2.16.840.1.246074.10.20.22.4.2" /> <id nullFlavor="NA& quot; /> <code codeSystem="local" code="BILUC&quot ; displayName="BILI UNCONJUGATED" /> <statusCode code=& quot;completed" /> <effectiveTime value="941818237487& quot; /> <value unit="mg/dL" xsi:type="PQ" value="0.6" /> <referenceRange> < observationRange> <text>0.0-0.7</text> & lt;/observationRange> </referenceRange> </ observation> </component> <component> < observation moodCode="EVN" classCode="OBS"> < templateId root="2.16.840.1.952676.10.20.22.4.2" /> < id nullFlavor="NA" /> <code codeSystem="local&quot ; code="AST" displayName="AST/SGOT" /> < statusCode code="completed" /> <effectiveTime value=& quot;319052844330" /> <value unit="Units/L" xsi: type="PQ" value="35" /> <referenceRange> <observationRange> <text>10-37</text> </observationRange> </referenceRange> & lt;/observation> </component> <component> < observation moodCode="EVN" classCode="OBS"> < templateId root="2.16.840.1.299067.10..22.4.2" /> < id nullFlavor="NA" /> <code codeSystem="local" code="ALT" displayName="ALT/SGPT" /> < statusCode code="completed" /> <effectiveTime value=& quot;277623192178" /> <value unit="Units/L" xsi: type="PQ" value="32" /> <referenceRange> <observationRange> <text>< 66</ text> </observationRange> </referenceRange> </observation> </component> <component> <observation moodCode="EVN" classCode="OBS"> <templateId root="2.16.840.1.200705.10.20.22.4.2" /> <id nullFlavor="NA" /> <code codeSystem=" local" code="TP" displayName="TOTAL PROTEIN" />< statusCode code="completed" /> <effectiveTime value=& quot;011738141399" /> <value unit="gm/dL" xsi:type ="PQ" value="6.7" /> <referenceRange> <observationRange> <text>6.4-8.2</text> </observationRange> </referenceRange> &lt ;/observation> </component> <component> < observation moodCode="EVN" classCode="OBS"> < templateId root="2.16.840.1.940644.10.20.22.4.2" /> < id nullFlavor="NA" /> <code codeSystem="local&quot ; code="ALB" displayName="ALBUMIN" /> < statusCode code="completed" /> <effectiveTime value=& quot;843554779186" /> <value unit="gm/dL" xsi:type ="PQ" value="2.8" /> <interpretationCode codeSystem="local" code="*" /> < referenceRange> <observationRange> <text>3.4- 5.0</text> </observationRange> </ referenceRange> </observation> </component> < component> <observation moodCode="EVN" classCode=" OBS"> <templateId root="2.16.840.1.668106.10..22.4.2& quot; /> <id nullFlavor="NA" /> <code codeSystem="local" code="BILTOT" displayName="BILI TOTAL" /> <statusCode code="completed" />< effectiveTime value="488564109687" /> <value unit=&quot ;mg/dL" xsi:type="PQ" value="0.7" /> < referenceRange> <observationRange> <text> 0.0-1.0</text> </observationRange> </ referenceRange> </observation> </component> < component> <observation moodCode="EVN" classCode=" OBS"> <templateId root="2.16.840.1.760878.10.20.22.4.2& quot; /> <id nullFlavor="NA"/> <code codeSystem="local" code="ALKP" displayName="ALKALINE PHOSPHATASE TOTAL" /> <statusCode code="completed&quot ; /> <effectiveTime value="636582435488" /> <value unit="IU/L" xsi:type="PQ" value="117" /> <referenceRange> <observationRange> <text>45-117</text> </observationRange>< /referenceRange> </observation> </component> &lt ;component> <observation moodCode="EVN" classCode="OBS& quot;> <templateId root="2.16.840.1.888612.10.20.22.4.2&quot ; /> <id nullFlavor="NA" /> <code codeSystem="local" code="BILC" displayName="BILI CONJUGATED" /> <statusCode code="completed" /> <effectiveTime value="994727904337" /> < value unit="mg/dL" xsi:type="PQ" value="0.1" /&gt ; <referenceRange> <observationRange> < text>0.0-0.3</text> </observationRange> </ referenceRange> </observation> </component> </ organizer> </entry> <entry> <organizer moodCode="EVN " classCode="BATTERY"> <templateId root=" 2.16.840.1.396002.10.20.22.4.1" /> <id nullFlavor="NA&quot ; /> <code codeSystem="local" code="MAG" displayName="MAGNESIUM" /> <statusCode code="completed " /> <component> <observation moodCode="EVN& quot; classCode="OBS"> <templateId root=" 2.16.840.1.641269.10.20.22.4.2" /> <id nullFlavor="NA& quot; /> <code codeSystem="local" code="MAG" displayName="MAGNESIUM" /> <statusCode code="completed&quot ; /> <effectiveTime value="908385670992" /> <value unit="mg/dL" xsi:type="PQ" value="1.1&quot ; /> <interpretationCode codeSystem="local" code=" " /><referenceRange> <observationRange> <text>1.8-2.4</text> </observationRange> </referenceRange> </observation> </component& gt; </organizer> </entry> <entry> <organizer moodCode="EVN" classCode="BATTERY"> <templateId root="2.16.840.1.444907.10.20.22.4.1" /> <id nullFlavor=& quot;NA" /> <code codeSystem="local" code="LIP& quot; displayName="LIPASE" /> <statusCode code=" completed" /> <component> <observation moodCode=& quot;EVN" classCode="OBS"> <templateId root=" 2.16.840.1.833913.10.20.22.4.2" /> <id nullFlavor="NA& quot; /> <code codeSystem="local" code="LIP" displayName="LIPASE" /> <statusCode code=" completed" /> <effectiveTime value="528190957757" /> <value unit="Units/L" xsi:type="PQ" value= "172" /> <referenceRange> < observationRange> <text>73-393</text> &lt ;/observationRange> </referenceRange> </observation& gt; </component> </organizer> </entry> <entry> <organizer moodCode="EVN" classCode="BATTERY"> <templateId root="2.16.840.1.643692.10.20.22.4.1" /> <id nullFlavor="NA" /> <code codeSystem="local" code= "iCHEM8" displayName="CHEM/HEM PROFILE-BEDSIDE" /> & lt;statusCode code="completed" /> <component> &lt ;observation moodCode="EVN" classCode="OBS"> &lt ;templateId root="2.16.840.1.670493.10.20.22.4.2" /> <id nullFlavor="NA" /> <code codeSystem="local" code="K" displayName="POTASSIUM" /> < statusCode code="completed" /> <effectiveTime value=& quot;002680063748" /> <value unit="mmol/L" xsi: type="PQ" value="3.7" /> <referenceRange> <observationRange> <text>3.5-5.3</text> </observationRange> </referenceRange> </ observation> </component> <component> < observation moodCode="EVN" classCode="OBS"> < templateId root="2.16.840.1.141503.10.20.22.4.2" /> < id nullFlavor="NA" /> <code codeSystem="local&quot ; code="CMETHOD" displayName="METHOD" /> < statusCode code="completed" /> <effectiveTime value=& quot;186682003382" /> <value unit="" xsi:type=& quot;PQ" value="Bedside" /> <referenceRange> <observationRange> <text /> </ observationRange> </referenceRange> </observation&gt ; </component> <component> <observation moodCode ="EVN" classCode="OBS"> <templateId root=& quot;2.16.840.1.227795.10.20.22.4.2" /> <id nullFlavor=&quot ;NA" /> <code codeSystem="local" code="GAP& quot; displayName="ANION GAP" /> <statusCode code=&quot ;completed" /> <effectiveTime value="786000643754&quot ; /> <value unit="mmol/L" xsi:type="PQ" value ="17" /> <referenceRange> < observationRange> <text>10-20</text> < /observationRange> </referenceRange> </observation& gt; </component> <component> <observation moodCode="EVN"classCode="OBS"> <templateId root="2.16.840.1.773338.10.20.22.4.2" /> <id nullFlavor ="NA" /> <code codeSystem="local" code=" HMETHOD" displayName="METHOD" /> <statusCode code= "completed" /> <effectiveTime value="624344878791& quot; /> <value unit="" xsi:type="PQ" value=& quot;Bedside" /> <referenceRange> < observationRange> <text /> </ observationRange> </referenceRange> </observation&gt ; </component> <component> <observation moodCode ="EVN" classCode="OBS"> <templateId root=& quot;2.16.840.1.870894.10.20.22.4.2" /> <id nullFlavor=&quot ;NA" /> <code codeSystem="local" code="GLU& quot; displayName="GLUCOSE" /> <statusCode code=" completed" /> <effectiveTime value="326410693966" /> <value unit="mg/dL" xsi:type="PQ" value=& quot;160" /> <interpretationCode codeSystem="local&quot ; code="*" /> <referenceRange> < observationRange> <text>70-99</text> < /observationRange> </referenceRange> </observation> </component> <component> <observation moodCode= "EVN" classCode="OBS"> <templateId root=&quot ;2.16.840.1.625484.10.20.22.4.2" /> <id nullFlavor="NA& quot; /> <code codeSystem="local" code="BUN" displayName="BLOOD UREA NITROGEN" /><statusCode code=" completed" /> <effectiveTime value="102270811663" /> <value unit="mg/dL" xsi:type="PQ" value=& quot;15" /> <referenceRange> < observationRange> <text>7-20</text> </ observationRange> </referenceRange> </observation&gt ; </component> <component> <observation moodCode ="EVN" classCode="OBS"> <templateId root=& quot;2.16.840.1.634825.10.20.22.4.2" /> <id nullFlavor=&quot ;NA" /> <code codeSystem="local" code="CREAT& quot; displayName="CREATININE" /> <statusCode code=& quot;completed" /> <effectiveTime value="649172350136& quot; /> <value unit="mg/dL" xsi:type="PQ" value="1.1" /> <interpretationCode codeSystem=" local" code="*" /> <referenceRange> &lt ;observationRange> <text>0.6-1.0</text> & lt;/observationRange> </referenceRange> </ observation> </component> <component> < observation moodCode="EVN" classCode="OBS"> < templateId root="2.16.840.1.658132.10.20.22.4.2" /> < id nullFlavor="NA" /> <code codeSystem="local&quot ; code="HGBT" displayName="HEMOGLOBIN" /> < statusCode code="completed" /> <effectiveTime value=& quot;013269905100" /> <value unit="gm/dL" xsi:type ="PQ" value="11.9" /> <interpretationCode codeSystem="local" code="*" /> < referenceRange> <observationRange> <text> 12.0-16.0</text> </observationRange> </ referenceRange> </observation> </component> < component> <observation moodCode="EVN" classCode=" OBS"> <templateId root="2.16.840.1.168267.10.20.22.4.2& quot; /> <id nullFlavor="NA" /> <code codeSystem ="local" code="HCTT" displayName="HEMATOCRIT" /&gt ; <statusCode code="completed" /> < effectiveTime value="700451967340" /> <value unit=&quot ;%" xsi:type="PQ" value="35.0" /> & lt;interpretationCode codeSystem="local" code="*" /> <referenceRange> <observationRange> & lt;text>37.0-47.0</text> </observationRange> </referenceRange> </observation> </component> <component> <observation moodCode="EVN" classCode=& quot;OBS"> <templateId root=" 2.16.840.1.520318.10.20.22.4.2" /> <id nullFlavor="NA& quot; /> <code codeSystem="local" code="NA" displayName="SODIUM" /> <statusCode code=" completed" /> <effectiveTime value="584987483405" /> <value unit="mmol/L" xsi:type="PQ" value=& quot;134" /> <interpretationCode codeSystem="local&quot ; code="*" /> <referenceRange> < observationRange> <text>135-148</text> & lt;/observationRange> </referenceRange> </ observation> </component> <component> < observation moodCode="EVN" classCode="OBS"> < templateId root="2.16.840.1.592677.10.20.22.4.2" /> < id nullFlavor="NA" /> <code codeSystem="local&quot ; code="CL" displayName="CHLORIDE" /> < statusCode code="completed" /> <effectiveTime value=& quot;519836239440" /> <value unit="mmol/L" xsi: type="PQ" value="95" /> <interpretationCode codeSystem="local" code="*" /> < referenceRange> <observationRange> <text>98- 110</text> </observationRange> </ referenceRange> </observation> </component> < component> <observation moodCode="EVN" classCode=" OBS"> <templateId root="2.16.840.1.152063.10.20.22.4.2& quot; /> <id nullFlavor="NA" /> <code codeSystem="local" code="CO2" displayName="CARBON DIOXIDE" /> <statusCode code="completed" /> <effectiveTime value="814557550382" /> <value unit="mmol/L" xsi:type="PQ" value="26" /> <referenceRange> <observationRange> &lt ;text>21-32</text> </observationRange> </ referenceRange> </observation> </component> < component> <observation moodCode="EVN" classCode=" OBS"> <templateId root="2.16.840.1.851211.10.20.22.4.2& quot; /> <id nullFlavor="NA" /> <code codeSystem="local" code="CAION" displayName="CALCIUM IONIZED" /> <statusCode code="completed" /> <effectiveTime value="508636666534" /> < value unit="mg/dL" xsi:type="PQ" value="4.3" /&gt ; <interpretationCode codeSystem="local" code="*" /&gt ; <referenceRange> <observationRange> <text>4.5-5.3</text> </observationRange> </ referenceRange> </observation> </component> </ organizer> </entry> <entry> <organizer moodCode="EVN " classCode="BATTERY"> <templateId root=" 2.16.840.1.969368.10.20.22.4.1" /> <id nullFlavor="NA&quot ; /> <code codeSystem="local" code="iTROPI" displayName="TROPONIN I BEDSIDE" /> <statusCode code=" completed" /> <component> <observation moodCode=& quot;EVN" classCode="OBS"> <templateId root=" 2.16.840.1.922623.10.20.22.4.2" /> <id nullFlavor="NA& quot; /> <code codeSystem="local" code="CMETHOD& quot; displayName="METHOD" /> <statusCode code=" completed" /> <effectiveTime value="837194883875" /> <value unit="" xsi:type="PQ" value=" Bedside" /> <referenceRange> < observationRange> <text /> </ observationRange> </referenceRange> </observation&gt ; </component> <component> <observation moodCode ="EVN" classCode="OBS"> <templateId root=& quot;2.16.840.1.360282.10.20.22.4.2" /> <id nullFlavor=&quot ;NA" /> <code codeSystem="local" code="TROPI& quot; displayName="TROPONIN I" /> <statusCode code=& quot;completed" /> <effectiveTime value="655721938528& quot; /> <value unit="ng/mL" xsi:type="PQ" value="< 0.04" /> <referenceRange> <observationRange> <text>< 0.11</text> </observationRange> </referenceRange> </ observation> </component> </organizer> </entry> & lt;entry> <organizer moodCode="EVN" classCode="BATTERY& quot;> <templateId root="2.16.840.1.443026.10.20.22.4.1" /& gt; <id nullFlavor="NA" /> <code codeSystem=" local" code="UA" displayName="URINALYSIS, ROUTINE" /&gt ; <statusCode code="completed" /> <component> <observation moodCode="EVN" classCode="OBS"> &lt ;templateId root="2.16.840.1.930843.10..22.4.2" /> < id nullFlavor="NA" /> <code codeSystem="local&quot ; code="LEUESU" displayName="UA LEUKOCYTE ESTERASE DIPSTICK&quot ; /> <statusCode code="completed" /> < effectiveTime value="420874965499" /> <value unit=&quot ;" xsi:type="PQ" value="1+" /> < interpretationCode codeSystem="local" code="*" /> <referenceRange> <observationRange> < text>NEGATIVE</text> </observationRange> < /referenceRange> </observation> </component> &lt ;component> <observation moodCode="EVN" classCode="OBS& quot;> <templateId root="2.16.840.1.941601.10.20.22.4.2&quot ; /> <id nullFlavor="NA" /> <code codeSystem="local" code="NITRIU" displayName="UA NITRITE DIPSTICK" /> <statusCode code="completed" /> <effectiveTime value="459267500360" /> & lt;value unit="" xsi:type="PQ" value="NEGATIVE" /& gt; <referenceRange> <observationRange> <text>NEGATIVE</text> </observationRange> </referenceRange> </observation> </component&gt ; <component> <observation moodCode="EVN" classCode="OBS"> <templateId root=" 2.16.840.1.531271.10.20.22.4.2" /> <id nullFlavor="NA& quot; /><code codeSystem="local" code="PROTEIU" displayName="UA PROTEIN DIPSTICK" /> <statusCode code=& quot;completed" /> <effectiveTime value="877645167619& quot; /> <value unit="" xsi:type="PQ" value=& quot;1+" /> <interpretationCode codeSystem="local&quot ; code="*" /> <referenceRange> < observationRange> <text>NEGATIVE</text> & lt;/observationRange> </referenceRange> </ observation> </component> <component> < observation moodCode="EVN" classCode="OBS"> < templateId root="2.16.840.1.786549.10..22.4.2" /> < id nullFlavor="NA" /> <code codeSystem="local&quot ; code="DGLUU" displayName="UA GLUCOSE DIPSTICK" /> <statusCode code="completed" /> <effectiveTime value="630708774806" /> <value unit="" xsi: type="PQ" value="NEGATIVE" /> <referenceRange> <observationRange> <text>NEGATIVE</text& gt; </observationRange> </referenceRange> </observation> </component> <component> &lt ;observation moodCode="EVN"classCode="OBS"> < templateId root="2.16.840.1.572346.10..22.4.2" /> < id nullFlavor="NA" /> <code codeSystem="local&quot ; code="KETONU" displayName="UA KETONE DIPSTICK" /> <statusCode code="completed" /> <effectiveTime value="532275093111" /> <value unit="" xsi:type=&quot ;PQ" value="NEGATIVE" /> <referenceRange> <observationRange> <text>NEGATIVE</text> </observationRange> </referenceRange> < /observation> </component> <component> < observation moodCode="EVN" classCode="OBS"> < templateId root="2.16.840.1.639130.10.20.22.4.2" /> <id nullFlavor="NA" /> <code codeSystem="local" code="UROBILU" displayName="UA UROBILINOGEN DIPSTICK" /> <statusCode code="completed" /> < effectiveTime value="344432821238" /><value unit="" xsi:type="PQ" value="2+" /> < interpretationCode codeSystem="local" code="*" /> <referenceRange> <observationRange> <text&gt ;NORMAL</text> </observationRange> </ referenceRange> </observation> </component> < component> <observation moodCode="EVN" classCode=" OBS"> <templateId root="2.16.840.1.379421.10.20.22.4.2&quot ; /> <id nullFlavor="NA" /> <code codeSystem="local" code="BILU" displayName="UA BILIRUBIN DIPSTICK" /> <statusCode code="completed&quot ; /> <effectiveTime value="483086915240" /> &lt ;value unit="" xsi:type="PQ" value="NEGATIVE" /&gt ; <referenceRange> <observationRange> <text>NEGATIVE</text> </observationRange> </referenceRange> </observation> </component&gt ; <component> <observation moodCode="EVN" classCode="OBS"> <templateId root=" 2.16.840.1.623784.10.20.22.4.2" /> <id nullFlavor="NA& quot; /> <code codeSystem="local" code="GORDON" displayName="UA BLOOD DIPSTICK" /> <statusCode code=& quot;completed" /> <effectiveTime value="964460983168& quot; /> <value unit="" xsi:type="PQ" value=& quot;1+" /> <interpretationCode codeSystem="local&quot ; code="*" /> <referenceRange> < observationRange><text>NEGATIVE</text> </ observationRange> </referenceRange> </observation&gt ; </component> <component> <observationmoodCode= "EVN" classCode="OBS"> <templateId root=&quot ;2.16.840.1.461781.10..22.4.2" /> <id nullFlavor="NA& quot; /> <code codeSystem="local" code="SPGRU&quot ; displayName="UA SPECIFIC GRAVITY" /> <statusCode code=& quot;completed" /> <effectiveTime value="052654501467& quot; /> <value unit="" xsi:type="PQ" value=& quot;1.015" /> <referenceRange> < observationRange> <text>1.015-1.025</text> </observationRange> </referenceRange> </observation& gt; </component> <component> <observation moodCode="EVN" classCode="OBS"> <templateId root="2.16.840.1.513395.10..22.4.2" /> <id nullFlavor ="NA" /> <code codeSystem="local" code=" REJI" displayName="UR PH" /> <statusCode code=&quot ;completed" /> <effectiveTime value="760607552081&quot ; /> <value unit="" xsi:type="PQ" value="7.0& quot; /> <referenceRange> <observationRange> <text>5.0-7.0</text> </observationRange> </referenceRange> </observation> </component& gt; </organizer> </entry> <entry> <organizer moodCode="EVN" classCode="BATTERY"> <templateId root="2.16.840.1.878253.10.20.22.4.1" /> <id nullFlavor=& quot;NA" /> <code codeSystem="local" code=" UAMICRO" displayName="UA MICROSCOPIC" /> <statusCode code="completed" /> <component> <observation moodCode="EVN" classCode="OBS"> <templateId root="2.16.840.1.597266.10.20.22.4.2" /> <id nullFlavor ="NA" /> <code codeSystem="local" code=" BACU" displayName="UA BACTERIA" /> <statusCode code="completed" /> <effectiveTime value=" 865936082972" /> <value unit="" xsi:type="PQ& quot; value="2+" /> <interpretationCode codeSystem=& quot;local" code="*" /> <referenceRange> <observationRange> <text>NEGATIVE</text> </observationRange> </referenceRange> < /observation> </component> <component> < observation moodCode="EVN" classCode="OBS"> < templateId root="2.16.840.1.956947.10.20.22.4.2" /> < id nullFlavor="NA" /> <code codeSystem="local&quot ; code="RBCU" displayName="UA RBC" /> < statusCode code="completed" /> <effectiveTime value=& quot;060137994241" /> <value unit="rbc/hpf" xsi: type="PQ" value="3-5" /> <interpretationCode codeSystem="local" code="*" /> < referenceRange> <observationRange> <text> 0 - 3</text> </observationRange> </ referenceRange> </observation> </component> < component> <observation moodCode="EVN" classCode=" OBS"> <templateId root="2.16.840.1.203863.10.20.22.4.2& quot; /> <id nullFlavor="NA" /> <code codeSystem="local" code="UAVOL" displayName="UA VOLUME FOR EXAM" /> <statusCode code="completed" /> <effectiveTime value="417143923672" /> < value unit="mL" xsi:type="PQ" value="12.0" /> <referenceRange> <observationRange> <text>(12mL STD)</text> </observationRange> </referenceRange> </observation> </component> <component> <observation moodCode="EVN" classCode ="OBS"> <templateId root=" 2.16.840.1.290317.10.20.22.4.2" /> <id nullFlavor="NA& quot; /> <code codeSystem="local" code="WBCU&quot ; displayName="UA WBC" /> <statusCode code=" completed" /> <effectiveTime value="670732343347" /> <value unit="wbc/hpf" xsi:type="PQ" value= "50-100" /> <interpretationCode codeSystem="local& quot; code="*" /> <referenceRange> < observationRange> <text>0 - 5</text> < /observationRange> </referenceRange> </observation& gt; </component> <component> <observation moodCode="EVN" classCode="OBS"> <templateId root="2.16.840.1.339154.10.20.22.4.2" /> <id nullFlavor ="NA" /> <code codeSystem="local" code=" WBCCLUMPS" displayName="WBC CLUMPS" /> < statusCode code="completed" /> <effectiveTime value=" 280420945499" /> <value unit="" xsi:type="PQ& quot; value="PRESENT" /> <interpretationCode codeSystem ="local" code="*" /> <referenceRange> <observationRange> <text>NEGATIVE</text> </observationRange> </referenceRange> & lt;/observation> </component> </organizer> </entry&gt ; <entry> <organizer moodCode="EVN" classCode=" BATTERY"> <templateId root="2.16.840.1.013871.10.20.22.4.1& quot; /> <id nullFlavor="NA" /> <code codeSystem ="local" code="UC" displayName="URINE CULTURE" /& gt; <statusCode code="completed" /> <component> <observation moodCode="EVN" classCode="OBS"> <templateId root="2.16.840.1.902608.10.20.22.4.2" /> <id nullFlavor="NA" /> <code codeSystem=" local" code="MB" displayName="Microbiology" /> <statusCode code="completed" /> <effectiveTime value="541773183376" /> <value xsi:type="ST" value="<pre><b>URINE CULTURE</b> See BelowURINE CULTURE(F) Claudia Date/Time: 08/09/2017 22:57 Johann Date/Time: 08/12/2017 08:45SOURCE: URINESPEC DESC: CLEAN CATCHTREATMENT OF ASYMPTOMATIC BACTERIURIA IS NOT USUALLYCLINICALLY INDICATED.Organism #1 ENTEROCOCCUS FAECALISCOLONY COUNT >100,000 CFU/ML ENTEROCOCCUS ARE RESISTANT TO ALL CEPHALOSPORINS GENTAMICIN SHOULD NOT BE USED ALONE, BUT ONLY PART OF A SYNERGISTIC COMBINATION THERAPY. InterpAMPICILLIN VITEK &lt ;=2 SGENTAMICIN SYNERGY VITEK >500 RNITROFURANTOIN VITEK <=16 SVANCOMYCIN VITEK 1 [facility] [place] [address]</pre>" /> <referenceRange> <observationRange> <text /> </observationRange> </ referenceRange> </observation> </component> </ organizer> </entry> <entry> <organizer moodCode="EVN " classCode="BATTERY"> <templateId root=" 2.16.840.1.553625.10.20.22.4.1" /> <id nullFlavor="NA&quot ; /><code codeSystem="local" code="LACTG" displayName= "LACTIC ACID" /> <statusCode code="completed" /& gt; <component> <observationmoodCode="EVN" classCode="OBS"> <templateId root=" 2.16.840.1.729927.10..22.4.2" /> <id nullFlavor="NA& quot; /> <code codeSystem="local" code="LACT&quot ; displayName="LACTIC ACID" /> <statusCode code=" completed" /> <effectiveTime value="957485638541" /> <value unit="mmol/L" xsi:type="PQ" value=& quot;1.1" /> <referenceRange> < observationRange> <text>0.5-2.0</text> & lt;/observationRange> </referenceRange> </ observation> </component> </organizer> </entry> & lt;entry> <organizer moodCode="EVN" classCode="BATTERY& quot;> <templateId root="[id number]" /& gt; <id nullFlavor="NA" /> <code codeSystem=" local" code="TSH" displayName="THYROID STIM HORMONE (TSH)& quot; /> <statusCode code="completed" /> < component> <observation moodCode="EVN" classCode=" OBS"> <templateId root="[id number]& quot; /> <id nullFlavor="NA" /> <code codeSystem="local" code="TSH" displayName="THYROID STIM HORMONE (TSH)" /> <statusCode code="completed&quot ; /> <effectiveTime value="394305699571" /> <value unit="uIU/mL" xsi:type="PQ" value="0.27& quot; /> <interpretationCode codeSystem="local" code=& quot;*" /> <referenceRange> < observationRange> <text>0.34-4.82</text> </observationRange> </referenceRange> </ observation> </component> </organizer> </entry> & lt;entry> <organizer moodCode="EVN" classCode="BATTERY& quot;> <templateId root="2.16.840.1.530536.10.20.22.4.1" /& gt; <id nullFlavor="NA" /> <code codeSystem=" local" code="VRP" displayName="VIRUS RESPIRATORY PROFILE& quot; /> <statusCode code="completed" /> < component> <observation moodCode="EVN" classCode=" OBS"> <templateId root="2.16.840.1.848343.10.20.22.4.2& quot; /> <id nullFlavor="NA" /> <code codeSystem="local" code="MB" displayName="Microbiology& quot; /> <statusCode code="completed" /> & lt;effectiveTime value="464033676562" /> <value xsi: type="ST" value="<pre><b>RESPIRATORY PROFILE</b&gt ; See BelowRESPIRATORY PROFILE(F) Claudia Date/Time: 08/10/2017 08:27 Johann Date/Time: 08/10/2017 11:00SOURCE: NASOPHARYNGEALSPEC DESC: ADENOVIRUSNOT DETECTEDBORDETELLA PERTUSSISNOT DETECTEDCHLAMYDIA PNEUMONIAENOT DETECTEDCORONAVIRUS 229ENOT DETECTEDCORONAVIRUS VOG4XER DETECTEDCORONAVIRUS NL63 (Abnormal)DETECTED (Abnormal)CORONAVIRUS KZ31YMN DETECTEDHUMANMETAPNEUMOVIRUSNOT DETECTEDINFLUENZA A 2009 H1NOT DETECTEDINFLUENZA A H1NOT DETECTEDINFLUENZA A H3NOT DETECTEDINFLUENZA ANOT DETECTEDINFLUENZA BNOT DETECTEDMYCOPLASMA PNEUMONIAENOT DETECTEDPARAINFLUENZA 1NOT DETECTEDPARAINFLUENZA 2NOT DETECTEDPARAINFLUENZA 3NOT DETECTEDPARAINFLUENZA 4NOT DETECTEDRHINOVIRUS/ENTEROVIRUSNOT DETECTEDRSVNOT DETECTEDPEMBINA [facility] [place] [address]</pre>" / > <referenceRange> <observationRange> <text /> </observationRange> </ referenceRange> </observation> </component> </ organizer> </entry> <entry> <organizer moodCode="EVN " classCode="BATTERY"> <templateId root=" 2.16.840.1.514946.10.20.22.4.1" /> <id nullFlavor="NA&quot ; /> <code codeSystem="local" code="RENAL" displayName="RENAL FUNCTION PANEL" /><statusCode code=" completed" /> <component> <observation moodCode=& quot;EVN" classCode="OBS"> <templateId root=" 2.16.840.1.153020.10.20.22.4.2" /> <id nullFlavor="NA& quot; /> <code codeSystem="local" code="K" displayName="POTASSIUM" /> <statusCode code=" completed" /> <effectiveTime value="327911422095" /> <value unit="mmol/L" xsi:type="PQ" value=&quot ;3.8" /><referenceRange> <observationRange> <text>3.5-5.3</text> </observationRange> </referenceRange> </observation> </component > <component> <observation moodCode="EVN" classCode="OBS"> <templateId root=" 2.16.840.1.099845.10.20.22.4.2" /> <id nullFlavor="NA& quot; /> <code codeSystem="local" code="eGFR&quot ; displayName="EST GFR (MDRD)" /> <statusCode code=& quot;completed" /> <effectiveTime value="652727462506& quot; /> <value unit="mL/min" xsi:type="PQ" value="> 60" /> <referenceRange> & lt;observationRange> <text>> 59</text> </observationRange> </referenceRange> </ observation> </component> <component> < observation moodCode="EVN" classCode="OBS"> < templateId root="2.16.840.1.471331.10.20.22.4.2" /> <id nullFlavor="NA" /> <code codeSystem="local" code="GAP" displayName="ANION GAP" /> < statusCode code="completed" /> <effectiveTime value=& quot;563799815377" /> <value unit="mmol/L" xsi: type="PQ" value="7" /> <referenceRange> <observationRange> <text>5-15</text> </observationRange> </referenceRange> </ observation> </component> <component> < observation moodCode="EVN" classCode="OBS"> < templateId root="2.16.840.1.067330.10.20.22.4.2" /> < id nullFlavor="NA" /> <code codeSystem="local&quot ; code="eCrCl" displayName="EST CrCl (CG)" /> & lt;statusCode code="completed" /> <effectiveTime value= "969763226229" /> <value unit="mL/min" xsi: type="PQ" value="> 60" /> < referenceRange> <observationRange> <text> > 59</text> </observationRange> </ referenceRange> </observation> </component> < component> <observation moodCode="EVN" classCode=" OBS"> <templateId root="2.16.840.1.549676.10..22.4.2" /& gt; <id nullFlavor="NA" /> <code codeSystem ="local" code="GLU" displayName="GLUCOSE" /> <statusCode code="completed" /> < effectiveTime value="608309424356" /> <value unit=&quot ;mg/dL" xsi:type="PQ" value="139" /> < interpretationCode codeSystem="local" code="*" /> <referenceRange> <observationRange> <text>70-99& lt;/text> </observationRange> </referenceRange& gt; </observation> </component> <component> <observation moodCode="EVN" classCode="OBS"> <templateId root="2.16.840.1.789001.10.20.22.4.2" /> <id nullFlavor="NA" /> <code codeSystem=&quot ;local" code="CA" displayName="CALCIUM" /> <statusCode code="completed" /> <effectiveTime value ="388702110579" /> <value unit="mg/dL" xsi: type="PQ" value="8.0" /> <interpretationCode codeSystem="local" code="*" /> < referenceRange> <observationRange> <text> 8.5-10.1</text> </observationRange> </referenceRange& gt; </observation> </component> <component> <observation moodCode="EVN" classCode="OBS"> <templateId root="2.16.840.1.022325.10.20.22.4.2" />< id nullFlavor="NA" /> <code codeSystem="local&quot ; code="BUN" displayName="BLOOD UREA NITROGEN" /> <statusCode code="completed" /> <effectiveTime value="142081508028" /> <value unit="mg/dL" xsi:type="PQ" value="13" /> <referenceRange& gt; <observationRange> <text>7-20</text&gt ; </observationRange> </referenceRange> & lt;/observation> </component> <component> < observation moodCode="EVN" classCode="OBS"> < templateId root="2.16.840.1.100344.10..22.4.2" /> < id nullFlavor="NA" /> <code codeSystem="local&quot ; code="CREAT" displayName="CREATININE" /> < statusCode code="completed" /> <effectiveTime value=& quot;730909997890" /> <value unit="mg/dL" xsi:type ="PQ" value="0.7" /> <referenceRange> <observationRange> <text>0.6-1.0</text> </observationRange> </referenceRange> </ observation> </component> <component> < observation moodCode="EVN" classCode="OBS"> < templateId root="2.16.840.1.918246.10.20.22.4.2" /> < id nullFlavor="NA" /> <code codeSystem="local&quot ; code="NA" displayName="SODIUM" /> < statusCode code="completed" /> <effectiveTime value=& quot;060538191567" /> <value unit="mmol/L" xsi: type="PQ" value="136" /> <referenceRange> <observationRange> <text>135-148</text> </observationRange> </referenceRange> </ observation> </component> <component> < observationmoodCode="EVN" classCode="OBS"> < templateId root="2.16.840.1.711683.10.20.22.4.2" /> < id nullFlavor="NA" /> <code codeSystem="local&quot ; code="CL" displayName="CHLORIDE" /> < statusCode code="completed" /> <effectiveTime value=& quot;106794871010" /> <value unit="mmol/L" xsi: type="PQ" value="104" /> <referenceRange> <observationRange> <text>98-110</text> </observationRange> </referenceRange> &lt ;/observation> </component> <component> < observation moodCode="EVN" classCode="OBS"> < templateId root="2.16.840.1.058948.10..22.4.2" /> < id nullFlavor="NA" /> <code codeSystem="local&quot ; code="CO2" displayName="CARBON DIOXIDE" /> &lt ;statusCode code="completed" /> <effectiveTime value=& quot;818351628713" /> <value unit="mmol/L" xsi: type="PQ" value="25" /> <referenceRange> <observationRange> <text>21-32</text> </observationRange> </referenceRange> </ observation> </component> <component> < observation moodCode="EVN" classCode="OBS"> < templateId root="2.16.840.1.183967.10..22.4.2" /> < id nullFlavor="NA" /> <code codeSystem="local&quot ; code="ALB" displayName="ALBUMIN" /> < statusCode code="completed" /> <effectiveTime value=" 337250321338" /> <value unit="gm/dL" xsi:type=& quot;PQ" value="2.7" /> <interpretationCode codeSystem="local" code="*" /> < referenceRange> <observationRange> <text> 3.4-5.0</text> </observationRange> </ referenceRange> </observation> </component> < component> <observation moodCode="EVN" classCode="OBS& quot;> <templateId root="2.16.840.1.953138.10.20.22.4.2&quot ; /> <id nullFlavor="NA" /> <code codeSystem="local" code="PHOS" displayName="PHOSPHORUS& quot; /> <statusCode code="completed" /> & lt;effectiveTime value="173750266292" /> <value unit=& quot;mg/dL" xsi:type="PQ" value="3.0" /> & lt;referenceRange> <observationRange><text>2.5-4.9< /text> </observationRange> </referenceRange> </observation> </component> </organizer> < /entry> <entry> <organizer moodCode="EVN" classCode=& quot;BATTERY"> <templateId root=" 2.16.840.1.264277.10.20.22.4.1" /> <id nullFlavor="NA&quot ; /> <code codeSystem="local" code="MAG" displayName ="MAGNESIUM" /> <statusCode code="completed" /&gt ; <component> <observation moodCode="EVN" classCode="OBS"> <templateId root=" 2.16.840.1.613113.10.20.22.4.2" /> <id nullFlavor="NA& quot; /> <code codeSystem="local" code="MAG" displayName="MAGNESIUM" /> <statusCode code=" completed" /> <effectiveTime value="530195705879" /> <value unit="mg/dL" xsi:type="PQ" value=& quot;1.7" /> <interpretationCode codeSystem="local" code="*" /> <referenceRange> < observationRange> <text>1.8-2.4</text> </ observationRange> </referenceRange> </observation&gt ; </component> </organizer> </entry> <entry> <organizer moodCode="EVN" classCode="BATTERY"> <templateId root="2.16.840.1.775519.10.20.22.4.1" /> < id nullFlavor="NA" /> <code codeSystem="local" code="PROCAL" displayName="PROCALCITONIN" /> < statusCode code="completed" /> <component> < observation moodCode="EVN" classCode="OBS"> < templateId root="2.16.840.1.751743.10.20.22.4.2" /> < id nullFlavor="NA" /> <code codeSystem="local&quot ; code="PROCAL" displayName="PROCALCITONIN" /> & lt;statusCode code="completed" /> <effectiveTime value= "677305391190" /> <value unit="ng/mL" xsi: type="PQ" value="0.07" /> <referenceRange&gt ; <observationRange> <text>< 0.25< /text> </observationRange> </referenceRange> </observation> </component> </organizer> </entry > <entry> <organizer moodCode="EVN" classCode=" BATTERY"> <templateId root="2.16.840.1.058284.10.20.22.4.1& quot; /> <id nullFlavor="NA" /> <code codeSystem ="local" code="HBA1C" displayName="HEMOGLOBIN A1C&quot ; /> <statusCode code="completed" /> <component& gt; <observation moodCode="EVN" classCode="OBS"&gt ; <templateId root="2.16.840.1.709930.10.20.22.4.2" /> <id nullFlavor="NA" /> <code codeSystem=& quot;local" code="HBA1C" displayName="HEMOGLOBIN A1C" / > <statusCode code="completed" /> < effectiveTime value="157603956108" /> <valueunit=" %" xsi:type="PQ" value="7.9" /> &lt ;interpretationCode codeSystem="local" code="*" /> <referenceRange> <observationRange> <text& gt;< 5.7</text> </observationRange> </ referenceRange> </observation> </component> </ organizer> </entry> <entry> <organizer moodCode="EVN " classCode="BATTERY"> <templateId root=" 2.16.840.1.262006.10.20.22.4.1" /> <id nullFlavor="NA&quot ; /> <code codeSystem="local" code="LEGUA" displayName="AG LEGIONELLA URINE" /> <statusCode code=&quot ;completed" /> <component> <observation moodCode=& quot;EVN" classCode="OBS"> <templateId root=" 2.16.840.1.796292.10.20.22.4.2" /><id nullFlavor="NA" /&gt ; <code codeSystem="local" code="MB" displayName ="Microbiology" /> <statusCode code="completed& quot; /> <effectiveTime value="137183991947" /> <value xsi:type="ST" value="<pre><b>AG LEGIONELLA URINE - AG STREPTOCOCCUS PNEUMONIAE</b> See BelowAG LEGIONELLA URINE(F) Claudia Date/Time: 08/10/2017 11:08 Johann Date/Time: 08/10/2017 11:39SOURCE: URINESPEC DESC: LEGIONELLA ANTIGENNEGATIVE FOR LEGIONELLA PNEUMOPHILA SEROGROUP [address], [place] [address]Dli BelowAG STREPTOCOCCUS PNEUMONIAE(F) Claudia Date/Time: 08/10/2017 11:08 Johann Date/Time: 08/10/2017 11:39SOURCE: URINESPEC DESC: STREPTOCOCCUS PNEUMONIAENEGATIVE FOR STREPTOCOCCUS PNEUMONIAE[address] [address]</pre>" /> < referenceRange> <observationRange> <text /& gt; </observationRange> </referenceRange> </observation> </component> </organizer> </entry > <entry> <organizer moodCode="EVN" classCode=" BATTERY"> <templateId root="2.16.840.1.214875.10.20.22.4.1& quot; /> <id nullFlavor="NA" /> <code codeSystem ="local" code="GRAMM"displayName="GRAM STAIN" /&gt ; <statusCode code="completed" /> <component> <observation moodCode="EVN" classCode="OBS"> & lt;templateId root="2.16.840.1.237025.10.20.22.4.2" /> &lt ;id nullFlavor="NA" /> <code codeSystem="local& quot; code="MB" displayName="Microbiology" /> & lt;statusCode code="completed" /> <effectiveTime value= "362831524495" /> <value xsi:type="ST" value= "<pre><b>GRAM STAIN - MISCELLANEOUS CULTURE&amp ;lt;/b> See Below:RT BREAST WOUND GRAM STAIN(F) Claudia Date/Time: 08/10/2017 11:15 Johann Date/Time: 08/13/2017 10:34SOURCE: EXUDATESPEC DESC: BREASTGRAM STAINFEW NEUTROPHILSNO ORGANISMS [address] [address]Jbc BelowMISCELLANEOUS CULTURE(F) Claudia Date/Time: 08/10/2017 11:15 Johann Date/ Time: 08/13/2017 10:34SOURCE: EXUDATESPEC DESC: BREASTOrganism #1 STAPHYLOCOCCUS AUREUS - MRSAQUANTITATION .MODERATE GROWTH RIFAMPIN SHOULD NOT BE USED ALONE, BUT ONLY PART OF A SYNERGISTIC COMBINATION THERAPY. * ISOLATE IS RESISTANT TO OXACILLIN (MRSA) CONTACT PRECAUTIONS SHOULD BE IMPLEMENTED InterpCLINDAMYCIN VITEK >=8 RERYTHROMYCIN VITEK >=8 ROXACILLIN VITEK >=4 RPENICILLIN G VITEK >=0.5 RRIFAMPIN VITEK <=0.5 STETRACYCLINE VITEK <=1 STRIMETH/SULFA VITEK <=10 SVANCOMYCIN VITEK <=0.[address] [address]</pre>" /> <referenceRange> <observationRange> <text /> </observationRange> </referenceRange> </observation> </component> </organizer> </ entry> <entry> <organizer moodCode="EVN" classCode=& quot;BATTERY"> <templateId root=" 2.16.840.1.541737.10.20.22.4.1" /> <id nullFlavor="NA&quot ; /> <code codeSystem="local" code="GLUMON" displayName="GLUCOSE (POC)" /><statusCode code="completed& quot; /> <component> <observation moodCode="EVN& quot; classCode="OBS"> <templateId root=" 2.16.840.1.872553.10.20.22.4.2" /> <id nullFlavor="NA& quot; /> <code codeSystem="local" code="GLUMON& quot; displayName="GLUCOSE (POC)" /> <statusCode code=& quot;completed" /> <effectiveTime value="595328618271& quot;/> <value unit="mg/dL" xsi:type="PQ" value="265" /> <interpretationCode codeSystem="local " code="*" /> <referenceRange> < observationRange> <text>70-99</text> </ observationRange> </referenceRange> </observation&gt ; </component> </organizer> </entry> <entry> <organizer moodCode="EVN" classCode="BATTERY"> <templateId root="2.16.840.1.250594.10.20.22.4.1" /> < id nullFlavor="NA" /> <code codeSystem="local" code="GLUMON" displayName="GLUCOSE (POC)" /> < statusCode code="completed" /> <component> < observation moodCode="EVN" classCode="OBS"> < templateId root="2.16.840.1.844254.10.20.22.4.2" /> <id nullFlavor="NA" /> <code codeSystem="local" code="GLUMON" displayName="GLUCOSE (POC)" /> &lt ;statusCode code="completed" /> <effectiveTime value=& quot;293963484367" /> <valueunit="mg/dL" xsi:type= "PQ" value="133" /> <interpretationCode codeSystem="local" code="*" /> < referenceRange> <observationRange> <text>70-99</ text> </observationRange> </referenceRange> </observation> </component> </organizer> </ entry> <entry> <organizer moodCode="EVN" classCode=& quot;BATTERY"> <templateId root=" 2.16.840.1.434472.10.20.22.4.1" /> <id nullFlavor="NA&quot ; /> <code codeSystem="local" code="METAB" displayName="METABOLIC PANEL, BASIC" /> <statusCode code=& quot;completed"/> <component> <observation moodCode ="EVN" classCode="OBS"> <templateId root=& quot;2.16.840.1.697214.10.20.22.4.2" /> <id nullFlavor=&quot ;NA" /> <code codeSystem="local" code="K&quot ; displayName="POTASSIUM" /> <statusCode code=" completed" /> <effectiveTime value="740469375251" /> <value unit="mmol/L" xsi:type="PQ" value="4.0 " /> <referenceRange> <observationRange&gt ; <text>3.5-5.3</text> </observationRange > </referenceRange> </observation> </ component> <component> <observation moodCode="EVN& quot; classCode="OBS"> <templateId root=" 2.16.840.1.063625.10.20.22.4.2" /> <id nullFlavor="NA& quot; /> <code codeSystem="local" code="eGFR&quot ; displayName="EST GFR (MDRD)" /> <statusCode code=& quot;completed" /> <effectiveTime value="762975000147& quot; /> <value unit="mL/min" xsi:type="PQ" value="> 60" /> <referenceRange> & lt;observationRange> <text>> 59</text> </observationRange> </referenceRange> </ observation> </component> <component> < observation moodCode="EVN" classCode="OBS"> < templateId root="2.16.840.1.566107.10.20.22.4.2" /> < id nullFlavor="NA" /> <code codeSystem="local&quot ; code="GAP" displayName="ANION GAP" /> < statusCode code="completed" /> <effectiveTime value=& quot;861506656202" /> <value unit="mmol/L" xsi: type="PQ" value="6" /> <referenceRange> <observationRange> <text>5-15</text> & lt;/observationRange> </referenceRange> </ observation> </component> <component> < observationmoodCode="EVN" classCode="OBS"> < templateId root="2.16.840.1.416749.10.20.22.4.2" /> < id nullFlavor="NA" /> <code codeSystem="local&quot ; code="eCrCl" displayName="EST CrCl (CG)" /> < statusCode code="completed" /> <effectiveTime value=& quot;376391167716" /> <value unit="mL/min" xsi: type="PQ" value="> 60" /> < referenceRange> <observationRange> <text> > 59</text> </observationRange> </ referenceRange> </observation> </component> < component> <observation moodCode="EVN" classCode=" OBS"> <templateId root="2.16.840.1.128275.10.20.22.4.2& quot; /> <id nullFlavor="NA" /> <code codeSystem="local" code="GLU" displayName="GLUCOSE&quot ; /> <statusCode code="completed" /> < effectiveTime value="454380098286" /> <value unit=&quot ;mg/dL" xsi:type="PQ" value="136" /> < interpretationCode codeSystem="local" code="*" /> <referenceRange> <observationRange> < text>70-99</text> </observationRange> </ referenceRange> </observation> </component> < component> <observation moodCode="EVN" classCode=" OBS"> <templateId root="2.16.840.1.953522.10.20.22.4.2& quot; /> <id nullFlavor="NA" /> <code codeSystem="local" code="CA" displayName="CALCIUM&quot ; /> <statusCode code="completed" /> < effectiveTime value="263120729766" /> <value unit=&quot ;mg/dL" xsi:type="PQ" value="8.2" /> < interpretationCode codeSystem="local" code="*" /> <referenceRange> <observationRange> < text>8.5-10.1</text> </observationRange> < /referenceRange> </observation> </component> &lt ;component> <observation moodCode="EVN" classCode="OBS& quot;> <templateId root="2.16.840.1.492856.10.20.22.4.2&quot ; /> <id nullFlavor="NA" /> <code codeSystem ="local" code="BUN" displayName="BLOOD UREA NITROGEN& quot; /> <statusCode code="completed" /> & lt;effectiveTime value="303459607071" /> <value unit=& quot;mg/dL" xsi:type="PQ" value="14" /> &lt ;referenceRange> <observationRange> <text>7-20&lt ;/text> </observationRange> </referenceRange&gt ; </observation> </component> <component> <observation moodCode="EVN" classCode="OBS"> <templateId root="2.16.840.1.188388.10.20.22.4.2" /> <id nullFlavor="NA" /> <code codeSystem=" local" code="CREAT" displayName="CREATININE" />< statusCode code="completed" /> <effectiveTime value=& quot;254701437351" /> <value unit="mg/dL" xsi:type ="PQ" value="0.9" /> <referenceRange> <observationRange> <text>0.6-1.0</text> </observationRange> </referenceRange> &lt ;/observation> </component> <component> < observation moodCode="EVN" classCode="OBS"> < templateId root="2.16.840.1.310158.10.20.22.4.2" /> < id nullFlavor="NA" /> <code codeSystem="local&quot ; code="NA" displayName="SODIUM" /> < statusCode code="completed" /> <effectiveTime value=& quot;488758975420" /> <value unit="mmol/L" xsi: type="PQ" value="135" /> <referenceRange> <observationRange> <text>135-148</text& gt; </observationRange> </referenceRange> </ observation> </component> <component> < observation moodCode="EVN" classCode="OBS"> < templateId root="2.16.840.1.560507.10.20.22.4.2" /> < id nullFlavor="NA" /> <code codeSystem="local&quot ; code="CL" displayName="CHLORIDE" /> < statusCode code="completed" /> <effectiveTime value=&quot ;870902221775" /> <value unit="mmol/L" xsi:type=& quot;PQ" value="100" /> <referenceRange> <observationRange> <text>98-110</text> </observationRange> </referenceRange> </ observation> </component> <component> < observation moodCode="EVN" classCode="OBS"> < templateId root="2.16.840.1.545823.10.20.22.4.2" /> < id nullFlavor="NA" /> <code codeSystem="local&quot ; code="CO2" displayName="CARBON DIOXIDE" /> &lt ;statusCode code="completed" /> <effectiveTime value=& quot;478444721828" /> <value unit="mmol/L" xsi: type="PQ" value="29" /> <referenceRange> <observationRange> <text>21-32</text> </observationRange> </referenceRange> & lt;/observation> </component> </organizer> </entry&gt ; <entry> <organizer moodCode="EVN" classCode=" BATTERY"> <templateId root="2.16.840.1.424761.10.20.22.4.1& quot; /> <id nullFlavor="NA" /> <code codeSystem ="local" code="MAG" displayName="MAGNESIUM" /> <statusCode code="completed" /> <component>< observation moodCode="EVN" classCode="OBS"> < templateId root="2.16.840.1.824346.10.20.22.4.2" /> < id nullFlavor="NA" /> <code codeSystem="local" code ="MAG" displayName="MAGNESIUM" /> < statusCode code="completed" /> <effectiveTime value=& quot;099571905573" /> <value unit="mg/dL" xsi:type ="PQ" value="1.5" /> <interpretationCode codeSystem="local" code="*" /> <referenceRange > <observationRange> <text>1.8-2.4</ text> </observationRange> </referenceRange> </observation> </component> </organizer> </ entry> <entry> <organizer moodCode="EVN" classCode=& quot;BATTERY"> <templateId root=" 2.16.840.1.101994.10.20.22.4.1" /> <id nullFlavor="NA&quot ; /> <code codeSystem="local" code="GLUMON" displayName="GLUCOSE (POC)" /> <statusCode code=" completed" /> <component> <observation moodCode=& quot;EVN" classCode="OBS"> <templateId root=" 2.16.840.1.374493.10.20.22.4.2" /> <id nullFlavor="NA& quot; /> <code codeSystem="local" code="GLUMON& quot; displayName="GLUCOSE (POC)" /> <statusCode code=& quot;completed" /> <effectiveTime value="122187887830& quot; /> <value unit="mg/dL" xsi:type="PQ" value="165" /> <interpretationCode codeSystem="local" code="*" /> <referenceRange> < observationRange> <text>70-99</text> < /observationRange> </referenceRange> </observation& gt; </component> </organizer> </entry> <entry&gt ; <organizer moodCode="EVN" classCode="BATTERY"> <templateId root="2.16.840.1.324422.10.20.22.4.1" /> & lt;id nullFlavor="NA" /> <code codeSystem="local&quot ; code="GLUMON" displayName="GLUCOSE (POC)" /> < statusCode code="completed" /> <component> < observation moodCode="EVN" classCode="OBS"> < templateId root="216.840.1.981022.10.20.22.4.2" /> <id nullFlavor="NA" /> <code codeSystem="local" code="GLUMON" displayName="GLUCOSE (POC)" /> &lt ;statusCode code="completed" /> <effectiveTime value=& quot;165047006723" /> <value unit="mg/dL" xsi:type ="PQ" value="129" /> <interpretationCode codeSystem="local" code="*" /> < referenceRange> <observationRange> <text> 70-99</text> </observationRange> </ referenceRange> </observation> </component> </ organizer> </entry> <entry> <organizer moodCode="EVN " classCode="BATTERY"> <templateId root=" 2.16.840.1.106675.10.20.22.4.1" /> <id nullFlavor="NA&quot ; /> <code codeSystem="local" code="GLUMON" displayName="GLUCOSE (POC)" /> <statusCode code=" completed" /> <component> <observation moodCode=& quot;EVN" classCode="OBS"><templateId root=" [id number]" /> <id nullFlavor="NA& quot; /> <code codeSystem="local" code="GLUMON& quot; displayName="GLUCOSE (POC)" /> <statusCode code=& quot;completed" /> <effectiveTime value="[id number]& quot; /> <value unit="mg/dL" xsi:type="PQ" value="229" /> <interpretationCode codeSystem=" local" code="*" /> <referenceRange> <observationRange> <text>70-99</text> </ observationRange> </referenceRange> </observation&gt ; </component> </organizer> </entry> <entry> <organizer moodCode="EVN" classCode="BATTERY"> <templateId root="[id number]" /> < id nullFlavor="NA" /> <code codeSystem="local" code="GLUMON" displayName="GLUCOSE (POC)" /> < statusCode code="completed" /> <component> < observation moodCode="EVN" classCode="OBS"> < templateId root="[id number]" /> < id nullFlavor="NA" /><code codeSystem="local" code=& quot;GLUMON" displayName="GLUCOSE (POC)" /> < statusCode code="completed" /> <effectiveTime value=& quot;218307665031" /> <value unit="mg/dL" xsi:type ="PQ" value="172" /> <interpretationCode codeSystem="local" code="*" /> < referenceRange> <observationRange> <text> 70-99</text> </observationRange> </ referenceRange> </observation> </component> </ organizer> </entry> <entry> <organizer moodCode="EVN " classCode="BATTERY"> <templateId root=" 2.16.840.1.234259.10.20.22.4.1" /> <id nullFlavor="NA&quot ; /> <code codeSystem="local" code="GLUMON" displayName="GLUCOSE (POC)" /> <statusCode code=" completed" /> <component> <observation moodCode=& quot;EVN" classCode="OBS"> <templateId root=" 2.16.840.1.151835.10.20.22.4.2" /> <id nullFlavor="NA& quot; /> <code codeSystem="local" code="GLUMON& quot; displayName="GLUCOSE (POC)" /> <statusCode code=& quot;completed" /> <effectiveTime value="659774496850& quot; /> <value unit="mg/dL" xsi:type="PQ" value="164" /> <interpretationCode codeSystem="local&quot ; code="*" /> <referenceRange> < observationRange> <text>70-99</text></ observationRange> </referenceRange> </observation&gt ; </component> </organizer> </entry> <entry> <organizer moodCode="EVN" classCode="BATTERY"> <templateId root="2.16.840.1.221627.10.20.22.4.1" /> < id nullFlavor="NA" /> <code codeSystem="local" code="GLUMON" displayName="GLUCOSE (POC)" /> < statusCode code="completed" /> <component> < observation moodCode="EVN" classCode="OBS"> < templateId root="2.16.840.1.386400.10.20.22.4.2" /> <id nullFlavor="NA" /> <code codeSystem="local" code="GLUMON" displayName="GLUCOSE (POC)" /> &lt ;statusCode code="completed" /> <effectiveTime value=& quot;933867264565" /> <value unit="mg/dL" xsi:type ="PQ" value="152" /> < interpretationCodecodeSystem="local" code="*" /> <referenceRange> <observationRange> < text>70-99</text> </observationRange> </ referenceRange> </observation> </component> </ organizer> </entry> <entry> <organizer moodCode="EVN " classCode="BATTERY"> <templateId root=" 2.16.840.1.512783.10.20.22.4.1" /> <id nullFlavor="NA&quot ; /> <code codeSystem="local" code="CBCD" displayName="CBC W/DIFF" /> <statusCode code=" completed" /> <component> <observation moodCode=& quot;EVN" classCode="OBS"> <templateId root=" 2.16.840.1.068246.10.20.22.4.2" /> <id nullFlavor="NA& quot; /> <code codeSystem="local" code="BA#" displayName="BASOPHIL #" /> <statusCode code=" completed" /> <effectiveTime value="699043356253" /> <value unit="k/cumm" xsi:type="PQ" value=& quot;0.1" /> <referenceRange> < observationRange> <text>0.0-0.2</text> & lt;/observationRange> </referenceRange> </ observation> </component> <component> < observation moodCode="EVN" classCode="OBS"> < templateId root="2.16.840.1.352125.10..22.4.2" /> < id nullFlavor="NA" /> <code codeSystem="local" code=& quot;BA%" displayName="BASOPHIL %" /> <statusCode code="completed" /> <effectiveTime value="696850377854" /> <value unit="%& quot; xsi:type="PQ" value="1.2" /> < interpretationCode codeSystem="local" code="*" /> <referenceRange> <observationRange> < text>0-1</text> </observationRange> </ referenceRange> </observation> </component> < component> <observation moodCode="EVN" classCode=" OBS"> <templateId root="2.16.840.1.473366.10.20.22.4.2& quot; /> <id nullFlavor="NA" /> <code codeSystem="local" code="EO#" displayName="EOSINOPHIL # " /> <statusCode code="completed" /> & lt;effectiveTime value="955687135246" /> <value unit=& quot;k/cumm" xsi:type="PQ" value="0.4" /> < referenceRange> <observationRange> <text> 0.1-0.5</text> </observationRange> </ referenceRange> </observation> </component> < component> <observation moodCode="EVN"classCode="OBS "> <templateId root="2.16.840.1.297459.10.20.22.4.2& quot; /> <id nullFlavor="NA" /> <code codeSystem="local" code="EO%" displayName=" EOSINOPHIL %" /> <statusCode code="completed& quot; /> <effectiveTime value="717329585438" /> <value unit="%" xsi:type="PQ" value=" 7.3" /> <interpretationCode codeSystem="local" code=& quot;*" /> <referenceRange> < observationRange> <text>2-4</text> </ observationRange> </referenceRange> </observation&gt ; </component> <component> <observation moodCode ="EVN" classCode="OBS"> <templateId root=& quot;2.16.840.1.221040.10.20.22.4.2" /> <id nullFlavor=&quot ;NA" /> <code codeSystem="local" code="GR#& quot; displayName="GRANULOCYTE #" /> <statusCode code=& quot;completed" /> <effectiveTime value="551240134817& quot; /> <value unit="k/cumm" xsi:type="PQ" value="3.2" /> <referenceRange> < observationRange> <text>2.0-9.0</text> & lt;/observationRange> </referenceRange> </ observation> </component><component> <observation moodCode="EVN" classCode="OBS"> <templateId root=& quot;2.16.840.1.654784.10.20.22.4.2" /> <id nullFlavor=&quot ;NA" /> <code codeSystem="local" code="GR&amp ;#37;" displayName="GRANULOCYTE %" /> < statusCode code="completed" /> <effectiveTime value=& quot;111627132719" /> <value unit="%" xsi: type="PQ" value="62.7" /> <referenceRange&gt ; <observationRange> <text>50-75</text> </observationRange> </referenceRange> </ observation> </component> <component> < observation moodCode="EVN" classCode="OBS"> < templateId root="2.16.840.1.472064.10.20.22.4.2" /> < id nullFlavor="NA" /> <code codeSystem="local&quot ; code="LY#" displayName="LYMPHOCYTE #" /> < statusCode code="completed" /> <effectiveTime value=& quot;424889620581" /> <value unit="k/cumm" xsi: type="PQ" value="0.7" /> <interpretationCode codeSystem="local" code="*" /> < referenceRange> <observationRange> <text>1.0- 4.0</text> </observationRange> </ referenceRange> </observation> </component> < component> <observation moodCode="EVN" classCode=" OBS"> <templateId root="2.16.840.1.171867.10.20.22.4.2& quot; /> <id nullFlavor="NA" /> <code codeSystem="local" code="LY%" displayName=" LYMPHOCYTE %" /> <statusCode code="completed& quot; /> <effectiveTime value="015896193114" /> <value unit="%" xsi:type="PQ" value=" 14.3" /> <interpretationCode codeSystem="local" code="*" /> <referenceRange> < observationRange> <text>20-30</text> < /observationRange> </referenceRange> </observation> </component> <component> <observation moodCode=& quot;EVN" classCode="OBS"> <templateId root=" 2.16.840.1.258124.10.20.22.4.2" /> <id nullFlavor="NA& quot; /> <code codeSystem="local" code="MCH" displayName="MEAN CELL HGB" /> <statusCode code=" completed" /> <effectiveTime value="393690066040" /> <value unit="pg" xsi:type="PQ" value=&quot ;26.4" /> <interpretationCode codeSystem="local" code=& quot;*" /> <referenceRange> < observationRange> <text>27.0-33.0</text> </ observationRange> </referenceRange> </observation&gt ; </component> <component> <observation moodCode ="EVN" classCode="OBS"> <templateId root=& quot;2.16.840.1.095774.10.20.22.4.2" /> <id nullFlavor="NA&quot ; /> <code codeSystem="local" code="MCHC" displayName="MEAN CELL HGB CONCENTRATION" /> < statusCode code="completed" /> <effectiveTime value=& quot;129509895132" /> <value unit="g/dL" xsi:type= "PQ" value="32.0" /> <referenceRange> <observationRange> <text>32.0-37.0</text&gt ; </observationRange> </referenceRange> </ observation> </component> <component> < observation moodCode="EVN" classCode="OBS"> < templateId root="2.16.840.1.399194.10.20.22.4.2" /> <id nullFlavor="NA" /> <code codeSystem="local" code="MCV" displayName="MEAN CELL VOLUME" /> &lt ;statusCode code="completed" /> <effectiveTime value=& quot;955470228507" /> <value unit="fl" xsi:type=& quot;PQ" value="82.5" /> <referenceRange> <observationRange> <text>80.0-100.0</text> </observationRange> </referenceRange> </ observation> </component> <component> < observation moodCode="EVN" classCode="OBS"> < templateId root="2.16.840.1.657749.10.20.22.4.2" /> < id nullFlavor="NA" /> <code codeSystem="local&quot ; code="MO#" displayName="MONOCYTE #" /> < statusCode code="completed" /> <effectiveTime value=& quot;224675596347" /> <value unit="k/cumm" xsi: type="PQ" value="0.7" /> <referenceRange> <observationRange> <text>0.1-1.0</text& gt; </observationRange> </referenceRange> &lt ;/observation> </component> <component> < observation moodCode="EVN" classCode="OBS"> < templateId root="2.16.840.1.074914.10.20.22.4.2" /> < id nullFlavor="NA"/> <code codeSystem="local&quot ; code="MO%" displayName="MONOCYTE %" /> <statusCode code="completed" /> < effectiveTime value="947852037550" /> <value unit=&quot ;%" xsi:type="PQ" value="13.3" /> & lt;interpretationCode codeSystem="local" code="*" /> <referenceRange> <observationRange> &lt ;text>4-6</text> </observationRange> </ referenceRange> </observation> </component> < component> <observation moodCode="EVN" classCode=" OBS"> <templateId root="2.16.840.1.195073.10.20.22.4.2& quot; /> <id nullFlavor="NA" /> <code codeSystem="local" code="MPVT" displayName="MEAN PLATELET VOLUME"/> <statusCode code="completed" /& gt; <effectiveTime value="543522782193" /> &lt ;value unit="fl" xsi:type="PQ" value="9.5" /> <referenceRange> <observationRange> <text>8.5-10.9</text> </observationRange> </referenceRange> </observation> </component> <component> <observation moodCode="EVN" classCode=& quot;OBS"> <templateId root=" 2.16.840.1.562106.10.20.22.4.2" /> <id nullFlavor="NA& quot; /> <code codeSystem="local" code="RBC" displayName="RED BLOOD CELL" /> <statusCode code=" completed" /> <effectiveTime value="671911906476" /> <value unit="m/cumm" xsi:type="PQ" value=& quot;4.35" /> <referenceRange> < observationRange> <text>4.00-6.00</text> </observationRange> </referenceRange> </ observation> </component> <component> < observation moodCode="EVN" classCode="OBS"> < templateId root="2.16.840.1.194893.10.20.22.4.2" /> < id nullFlavor="NA" /> <code codeSystem="local&quot ; code="RDW" displayName="RED CELL DISTRIBUTION WIDTH" /&gt ; <statusCode code="completed" /> < effectiveTime value="771847990514" /> <value unit=&quot ;%" xsi:type="PQ" value="14.6" /> & lt;referenceRange> <observationRange> <text& gt;11.0-15.6</text> </observationRange> </ referenceRange> </observation> </component> < component> <observation moodCode="EVN" classCode=" OBS"> <templateId root="2.16.840.1.848628.10.20.22.4.2& quot; /> <id nullFlavor="NA" /> <code codeSystem="local" code="WBC" displayName="WHITE BLOOD CELL" /> <statusCode code="completed" /> <effectiveTime value="612174513471" /> <value unit ="k/cumm" xsi:type="PQ" value="5.1" /> < referenceRange> <observationRange> <text> 5.0-10.0</text> </observationRange> </ referenceRange> </observation> </component> < component> <observation moodCode="EVN" classCode=" OBS"> <templateId root="2.16.840.1.017636.10.20.22.4.2& quot; /> <id nullFlavor="NA" /> <code codeSystem="local" code="HGBT" displayName="HEMOGLOBIN& quot; /> <statusCode code="completed" /> & lt;effectiveTime value="150690244587" /> <valueunit=& quot;gm/dL" xsi:type="PQ" value="11.5" /> & lt;interpretationCode codeSystem="local" code="*" /> <referenceRange> <observationRange> <text&gt ;12.0-16.0</text> </observationRange> </ referenceRange> </observation> </component> < component> <observation moodCode="EVN" classCode=" OBS"> <templateId root="2.16.840.1.229715.10.20.22.4.2&quot ; /> <id nullFlavor="NA" /> <code codeSystem="local" code="HCTT" displayName="HEMATOCRIT& quot; /> <statusCode code="completed" /> & lt;effectiveTime value="818278989064" /> <value unit=& quot;%" xsi:type="PQ" value="35.9" /> <interpretationCode codeSystem="local" code="*" /&gt ; <referenceRange> <observationRange> <text>37.0-47.0</text> </observationRange> </referenceRange> </observation> </component&gt ; <component> <observation moodCode="EVN" classCode="OBS"> <templateId root=" 2.16.840.1.863986.10.20.22.4.2" /> <id nullFlavor="NA& quot; /> <code codeSystem="local" code="NRBC%&quot ; displayName="NRBC %" /> <statusCode code=& quot;completed" /> <effectiveTime value="288278489359& quot; /> <value unit="/100WBC" xsi:type="PQ" value="0.0" /> <referenceRange> < observationRange> <text>0.0-0.0</text> </ observationRange> </referenceRange> </observation&gt ; </component> <component> <observation moodCode ="EVN" classCode="OBS"> <templateId root=& quot;2.16.840.1.610529.10..22.4.2" /> <id nullFlavor=&quot ;NA" /> <code codeSystem="local" code="NRBC#& quot; displayName="NRBC #" /> <statusCode code="completed " /> <effectiveTime value="030711804001" /> <value unit="k/cumm" xsi:type="PQ" value=" 0.00" /> <interpretationCode codeSystem="local" code="*" /> <referenceRange> < observationRange> <text>0.03-0.11</text> </observationRange> </referenceRange> </ observation> </component> <component> < observation moodCode="EVN"classCode="OBS"> < templateId root="2.16.840.1.706859.10.20.22.4.2" /> < id nullFlavor="NA" /> <code codeSystem="local&quot ; code="PLTT" displayName="PLATELET COUNT" /> & lt;statusCode code="completed" /> <effectiveTime value= "092362662748" /> <value unit="k/cumm" xsi: type="PQ" value="160" /> <referenceRange> <observationRange> <text>150-400</text& gt; </observationRange> </referenceRange> </ observation> </component> <component> < observation moodCode="EVN" classCode="OBS"> < templateId root="2.16.840.1.311572.10.20.22.4.2" /> <id nullFlavor="NA" /> <code codeSystem="local" code="IG%" displayName="IMMATURE GRANULOCYTE %& quot; /> <statusCode code="completed" /> & lt;effectiveTime value="950358721237" /> <value unit="& amp;#37;" xsi:type="PQ" value="1.2" /> < interpretationCode codeSystem="local" code="*" /> <referenceRange> <observationRange> < text>0.0-0.6</text> </observationRange> </ referenceRange> </observation> </component> < component> <observation moodCode="EVN" classCode=" OBS"> <templateId root="2.16.840.1.368946.10.20.22.4.2& quot; /> <id nullFlavor="NA" /> <code codeSystem="local" code="IG#" displayName="IMMATURE GRANULOCYTE #" /> <statusCode code="completed" /& gt; <effectiveTime value="749908849325" /> &lt ;value unit="k/cumm" xsi:type="PQ" value="0.06" /& gt; <referenceRange> <observationRange> <text>0.00-0.09</text> </observationRange> </referenceRange> </observation> </component& gt; </organizer> </entry> <entry> <organizer moodCode="EVN"classCode="BATTERY"> <templateId root="2.16.840.1.911092.10.20.22.4.1" /> <id nullFlavor=& quot;NA" /> <code codeSystem="local" code="RENAL& quot; displayName="RENAL FUNCTION PANEL" /> <statusCode code="completed" /> <component> <observation moodCode="EVN" classCode="OBS"> <templateId root="2.16.840.1.134807.10.20.22.4.2" /> <id nullFlavor=& quot;NA" /> <code codeSystem="local" code="K& quot; displayName="POTASSIUM" /> <statusCode code=&quot ;completed" /> <effectiveTime value="841727093277&quot ; /> <value unit="mmol/L" xsi:type="PQ" value ="3.3" /> <interpretationCode codeSystem="local& quot; code="*" /> <referenceRange> < observationRange> <text>3.5-5.3</text> & lt;/observationRange> </referenceRange> </observation&gt ; </component> <component> <observation moodCode ="EVN" classCode="OBS"> <templateId root=& quot;2.16.840.1.385541.10.20.22.4.2" /> <id nullFlavor=&quot ;NA"/> <code codeSystem="local" code="eGFR& quot; displayName="EST GFR(MDRD)" /> <statusCode code=& quot;completed" /> <effectiveTime value="654862253609& quot; /> <value unit="mL/min" xsi:type="PQ" value="> 60" /> <referenceRange> & lt;observationRange> <text>> 59</text> </observationRange> </referenceRange> </ observation> </component> <component> < observation moodCode="EVN" classCode="OBS"> < templateId root="2.16.840.1.804100.10.20.22.4.2" /> < id nullFlavor="NA" /> <code codeSystem="local&quot ; code="GAP" displayName="ANION GAP" /> < statusCode code="completed" /> <effectiveTime value=& quot;341388091068" /> <value unit="mmol/L" xsi: type="PQ" value="9" /> <referenceRange> <observationRange> <text>5-15</text> &lt ;/observationRange> </referenceRange> </observation& gt; </component> <component> <observation moodCode="EVN" classCode="OBS"> <templateId root="2.16.840.1.634692.10.20.22.4.2" /> <id nullFlavor ="NA" /> <code codeSystem="local" code=" eCrCl" displayName="EST CrCl (CG)" /> <statusCode code="completed" /> <effectiveTime value=" 358961817687" /> <value unit="mL/min" xsi:type=& quot;PQ" value="> 60" /> <referenceRange&gt ; <observationRange> <text>> 59</ text> </observationRange> </referenceRange> </observation> </component> <component> & lt;observation moodCode="EVN" classCode="OBS"> & lt;templateId root="2.16.840.1.688028.10.20.22.4.2" /> &lt ;id nullFlavor="NA" /> <code codeSystem="local& quot; code="GLU" displayName="GLUCOSE" /> < statusCode code="completed" /> <effectiveTime value=& quot;872443472230" /> <value unit="mg/dL" xsi:type=& quot;PQ" value="147" /> <interpretationCode codeSystem=& quot;local" code="*" /> <referenceRange> <observationRange> <text>70-99</text> </observationRange> </referenceRange> </ observation> </component> <component> < observation moodCode="EVN" classCode="OBS"> < templateId root="2.16.840.1.584661.10.20.22.4.2" /> < id nullFlavor="NA" /> <code codeSystem="local&quot ; code="CA"displayName="CALCIUM" /> < statusCode code="completed" /> <effectiveTime value=" 300749844388" /> <value unit="mg/dL" xsi:type=& quot;PQ" value="9.3" /> <referenceRange> <observationRange> <text>8.5-10.1</text> </observationRange> </referenceRange> < /observation> </component> <component> < observation moodCode="EVN" classCode="OBS"> < templateId root="2.16.840.1.019460.10.20.22.4.2" /> < id nullFlavor="NA" /> <code codeSystem="local&quot ; code="BUN" displayName="BLOOD UREA NITROGEN" /> <statusCode code="completed" /> <effectiveTime value="307020100973" /> <value unit="mg/dL" xsi:type="PQ" value="14" /> <referenceRange& gt; <observationRange> <text>7-20</text& gt; </observationRange> </referenceRange> </observation> </component> <component> &lt ;observation moodCode="EVN" classCode="OBS"> &lt ;templateId root="2.16.840.1.906926.10.20.22.4.2" /> < id nullFlavor="NA" /> <code codeSystem="local" code= "CREAT" displayName="CREATININE" /> < statusCode code="completed" /> <effectiveTime value=& quot;364897862920" /> <value unit="mg/dL" xsi:type ="PQ" value="0.7" /> <referenceRange> <observationRange> <text>0.6-1.0</text> </observationRange> </referenceRange> </ observation> </component> <component> < observation moodCode="EVN" classCode="OBS"> < templateId root="2..840.1.343413.10.20.22.4.2" /> < id nullFlavor="NA" /> <code codeSystem="local&quot ; code="NA" displayName="SODIUM" /> < statusCode code="completed" /> <effectiveTime value=& quot;862659179551" /> <value unit="mmol/L" xsi:type=& quot;PQ" value="134" /> <interpretationCode codeSystem=& quot;local" code="*" /> <referenceRange> <observationRange> <text>135-148</text> &lt ;/observationRange> </referenceRange> </observation& gt; </component> <component> <observation moodCode="EVN" classCode="OBS"> <templateId root="2.16.840.1.725866.10.20.22.4.2" /> <id nullFlavor ="NA" /> <code codeSystem="local" code=" CL" displayName="CHLORIDE" /> <statusCode code=& quot;completed" /> <effectiveTime value="685391082371&quot ; /> <value unit="mmol/L" xsi:type="PQ" value ="96" /> <interpretationCode codeSystem="local& quot; code="*" /> <referenceRange> < observationRange> <text>98-110</text> &lt ;/observationRange> </referenceRange> </observation& gt; </component> <component> <observation moodCode=& quot;EVN" classCode="OBS"> <templateId root=" 2.16.840.1.693138.10.20.22.4.2" /> <id nullFlavor="NA& quot; /> <code codeSystem="local" code="CO2" displayName="CARBON DIOXIDE" /> <statusCode code=" completed" /> <effectiveTime value="888487347868" /> <value unit="mmol/L" xsi:type="PQ" value=& quot;29" /> <referenceRange> < observationRange> <text>21-32</text> </ observationRange> </referenceRange> </observation&gt ; </component> <component> <observation moodCode ="EVN" classCode="OBS"> <templateId root=& quot;2.16.840.1.533612.10..22.4.2" /> <id nullFlavor=&quot ;NA" /> <code codeSystem="local" code="ALB& quot; displayName="ALBUMIN" /> <statusCode code=" completed" /> <effectiveTime value="815036898746" /> <value unit="gm/dL" xsi:type="PQ" value=& quot;2.9" /> <interpretationCode codeSystem="local" code ="*" /> <referenceRange> < observationRange> <text>3.4-5.0</text> </ observationRange> </referenceRange> </observation&gt ; </component> <component> <observation moodCode ="EVN" classCode="OBS"> <templateId root=& quot;2.16.840.1.019233.10.20.22.4.2" /><id nullFlavor="NA" /> <code codeSystem="local" code="PHOS" displayName="PHOSPHORUS" /> <statusCode code=" completed" /> <effectiveTime value="360439900163" /> <value unit="mg/dL" xsi:type="PQ" value=& quot;3.5" /> <referenceRange> <observationRange> <text>2.5-4.9</text> </observationRange& gt; </referenceRange> </observation> </ component> </organizer> </entry> <entry> < organizer moodCode="EVN" classCode="BATTERY"> < templateId root="2.16.840.1.690483.10.20.22.4.1" /><id nullFlavor="NA" /> <code codeSystem="local" code= "MAG" displayName="MAGNESIUM" /> <statusCode code ="completed" /> <component> <observation moodCode="EVN" classCode="OBS"> <templateId root=& quot;2.16.840.1.878231.10.20.22.4.2" /> <id nullFlavor=&quot ;NA" /> <code codeSystem="local" code="MAG& quot; displayName="MAGNESIUM" /> <statusCode code=&quot ;completed" /> <effectiveTime value="827653677242&quot ; /> <value unit="mg/dL" xsi:type="PQ" value= "1.5" /> <interpretationCode codeSystem="local& quot; code="*" /> <referenceRange> < observationRange> <text>1.8-2.4</text> </ observationRange> </referenceRange> </observation&gt ; </component> </organizer> </entry> <entry> <organizer moodCode="EVN" classCode="BATTERY"> <templateId root="2.16.840.1.826416.10.20.22.4.1" /> < id nullFlavor="NA" /> <code codeSystem="local" code="GLUMON" displayName="GLUCOSE (POC)" /> < statusCode code="completed" /> <component> < observation moodCode="EVN" classCode="OBS"> < templateId root="2.16.840.1.037949.10.20.22.4.2" /> < id nullFlavor="NA" /> <code codeSystem="local&quot ; code="GLUMON" displayName="GLUCOSE (POC)" /> & lt;statusCode code="completed" /> <effectiveTime value= "552243051254" /> <value unit="mg/dL" xsi: type="PQ" value="224" /> <interpretationCode codeSystem="local" code="*" /> < referenceRange> <observationRange> <text> 70-99</text> </observationRange> </ referenceRange> </observation> </component> </ organizer> </entry> <entry> <organizer moodCode="EVN " classCode="BATTERY"> <templateId root=" 2.16.840.1.645675.10.20.22.4.1" /> <id nullFlavor="NA&quot ; /> <code codeSystem="local" code="GLUMON" displayName="GLUCOSE (POC)" /> <statusCode code=" completed" /> <component> <observation moodCode=& quot;EVN" classCode="OBS"> <templateId root=" 2.16.840.1.363663.10.20.22.4.2" /> <id nullFlavor="NA& quot; /> <code codeSystem="local" code="GLUMON& quot; displayName="GLUCOSE (POC)" /> <statusCode code=& quot;completed" /> <effectiveTime value="827113373222& quot; /> <value unit="mg/dL" xsi:type="PQ" value ="140" /><interpretationCode codeSystem="local" code=& quot;*" /> <referenceRange> < observationRange> <text>70-99</text> < /observationRange> </referenceRange> </observation& gt; </component> </organizer> </entry> <entry&gt ; <organizer moodCode="EVN" classCode="BATTERY"> <templateId root="2.16.840.1.188703.10.20.22.4.1" /> & lt;id nullFlavor="NA" /> <code codeSystem="local&quot ; code="GLUMON" displayName="GLUCOSE (POC)" /> < statusCode code="completed" /> <component> < observation moodCode="EVN" classCode="OBS"> < templateId root="216.840.1.530876.10.20.22.4.2" /> <id nullFlavor="NA" /> <code codeSystem="local" code="GLUMON" displayName="GLUCOSE (POC)" /> &lt ;statusCode code="completed" /> <effectiveTime value=& quot;131868301210" /> <value unit="mg/dL" xsi:type ="PQ" value="225" /> <interpretationCode codeSystem="local" code="*" /> < referenceRange> <observationRange> <text> 70-99</text> </observationRange> </ referenceRange> </observation> </component> </ organizer> </entry> <entry> <organizer moodCode="EVN " classCode="BATTERY"> <templateId root=" [id number]" /> <id nullFlavor="NA&quot ; /> <code codeSystem="local" code="GLUMON" displayName="GLUCOSE (POC)" /> <statusCode code=" completed" /> <component> <observation moodCode=& quot;EVN" classCode="OBS"> <templateId root=" [id number]" /> <id nullFlavor="NA& quot; /> <code codeSystem="local" code="GLUMON& quot; displayName="GLUCOSE (POC)" /> <statusCode code=& quot;completed" /> <effectiveTime value="469458473459& quot; /> <value unit="mg/dL" xsi:type="PQ" value="159" /> <interpretationCode codeSystem=" local" code="*" /> <referenceRange> <observationRange> <text>70-99</text> </ observationRange> </referenceRange> </observation&gt ; </component> </organizer> </entry> <entry> <organizer moodCode="EVN" classCode="BATTERY"> <templateId root="2.16.840.1.504681.10.20.22.4.1" /> < id nullFlavor="NA" /> <code codeSystem="local" code="CBCD" displayName="CBC W/DIFF" /> < statusCode code="completed" /> <component> < observation moodCode="EVN" classCode="OBS"> < templateId root="2.16.840.1.238223.10.20.22.4.2" /> < id nullFlavor="NA" /> <code codeSystem="local&quot ; code="BA#" displayName="BASOPHIL #" /> <statusCode code="completed" /> <effectiveTime value=" 987710604095" /> <value unit="k/cumm" xsi:type=& quot;PQ" value="0.1" /> <referenceRange> <observationRange> <text>0.0-0.2</text> </observationRange> </referenceRange> </ observation> </component> <component> < observation moodCode="EVN" classCode="OBS"> < templateId root="2.16.840.1.478860.10.20.22.4.2" /> < id nullFlavor="NA" /> <code codeSystem="local&quot ; code="BA%" displayName="BASOPHIL %" /> <statusCode code="completed" /> < effectiveTime value="922738868798" /> <value unit=&quot ;%" xsi:type="PQ" value="1.1"/> &lt ;interpretationCode codeSystem="local" code="*" />< referenceRange> <observationRange> <text> 0-1</text> </observationRange> </ referenceRange> </observation> </component> < component> <observation moodCode="EVN" classCode=" OBS"> <templateId root="2.16.840.1.363821.10.20.22.4.2& quot; /> <id nullFlavor="NA" /> <code codeSystem="local" code="EO#" displayName="EOSINOPHIL # " /> <statusCode code="completed" /> & lt;effectiveTime value="487232092582" /> <value unit=& quot;k/cumm" xsi:type="PQ" value="0.6" /> & lt;interpretationCode codeSystem="local" code="*" /> <referenceRange> <observationRange> & lt;text>0.1-0.5</text> </observationRange> & lt;/referenceRange> </observation> </component> <component> <observation moodCode="EVN" classCode=& quot;OBS"> <templateId root=" 2.16.840.1.073904.10.20.22.4.2" /> <id nullFlavor="NA& quot; /> <code codeSystem="local" code="EO&#37 ;" displayName="EOSINOPHIL %" /> < statusCode code="completed" /> <effectiveTime value=" 655239187881" /> <value unit="%" xsi:type= "PQ" value="7.1" /> <interpretationCode codeSystem="local" code="*" /> < referenceRange> <observationRange> <text> 2-4</text> </observationRange> </ referenceRange> </observation> </component> < component><observation moodCode="EVN" classCode="OBS"& gt; <templateId root="2.16.840.1.505521.10.20.22.4.2" /&gt ; <id nullFlavor="NA" /> <code codeSystem=" local" code="GR#" displayName="GRANULOCYTE #"/> <statusCode code="completed" /> < effectiveTime value="043589239970" /> <value unit=&quot ;k/cumm" xsi:type="PQ" value="5.2" /> < referenceRange> <observationRange><text>2.0-9.0</ text> </observationRange> </referenceRange> </observation> </component> <component> <observation moodCode="EVN" classCode="OBS"> <templateId root="2.16.840.1.326016.10.20.22.4.2" /> <id nullFlavor="NA" /> <code codeSystem=" local" code="GR%" displayName="GRANULOCYTE % " /> <statusCode code="completed" /> & lt;effectiveTime value="221985312172" /> <value unit=& quot;%" xsi:type="PQ" value="64.9" /> <referenceRange> <observationRange> <text>50- 75</text> </observationRange> </ referenceRange> </observation> </component> < component> <observationmoodCode="EVN" classCode="OBS "> <templateId root="2.16.840.1.116955.10.20.22.4.2& quot; /> <id nullFlavor="NA" /> <code codeSystem="local" code="LY#" displayName="LYMPHOCYTE # " /> <statusCode code="completed" /> & lt;effectiveTime value="917029610566" /> <value unit=& quot;k/cumm" xsi:type="PQ" value="0.9" /> & lt;interpretationCode codeSystem="local" code="*" /> <referenceRange> <observationRange> & lt;text>1.0-4.0</text> </observationRange> & lt;/referenceRange> </observation> </component> &lt ;component> <observation moodCode="EVN" classCode=" OBS"> <templateId root="2.16.840.1.326009.10.20.22.4.2& quot; /> <id nullFlavor="NA" /> <code codeSystem="local" code="LY%" displayName=" LYMPHOCYTE %" /> <statusCode code="completed& quot; /> <effectiveTime value="512560273465" /> < value unit="%" xsi:type="PQ" value="11.4" /> <interpretationCode codeSystem="local" code="*& quot; /> <referenceRange> <observationRange> <text>20-30</text> </observationRange&gt ; </referenceRange> </observation> </ component> <component> <observation moodCode="EVN& quot; classCode="OBS"> <templateId root=" 2.16.840.1.923080.10.20.22.4.2" /> <idnullFlavor="NA& quot; /> <code codeSystem="local" code="MCH" displayName="MEAN CELL HGB" /> <statusCode code=" completed" /> <effectiveTime value="824298578412" /& gt; <value unit="pg" xsi:type="PQ" value=" 26.8" /> <interpretationCode codeSystem="local" code="*" /> <referenceRange> < observationRange> <text>27.0-33.0</text> </observationRange> </referenceRange> </ observation> </component> <component> < observation moodCode="EVN" classCode="OBS"> < templateId root="2.16.840.1.610066.10.20.22.4.2" /> < id nullFlavor="NA" /> <code codeSystem="local" code="MCHC" displayName="MEAN CELL HGB CONCENTRATION" /> <statusCode code="completed" /> < effectiveTime value="726914476940" /> <value unit=&quot ;g/dL" xsi:type="PQ" value="32.1" /> < referenceRange> <observationRange> <text> 32.0-37.0</text> </observationRange> </ referenceRange> </observation> </component> < component> <observation moodCode="EVN" classCode="OBS& quot;> <templateId root="2.16.840.1.478135.10.20.22.4.2&quot ; /> <id nullFlavor="NA" /> <code codeSystem="local" code="MCV" displayName="MEAN CELL VOLUME" /> <statusCode code="completed" /> <effectiveTime value="692147588026" /> <value unit="fl" xsi:type="PQ" value="83.4" /> <referenceRange> <observationRange> <text>80.0 -100.0</text> </observationRange> </ referenceRange> </observation> </component> < component> <observation moodCode="EVN" classCode=" OBS"> <templateId root="2.16.840.1.937780.10.20.22.4.2& quot; /> <id nullFlavor="NA" /> <code codeSystem="local" code="MO#" displayName="MONOCYTE #& quot; /> <statusCode code="completed" /> < effectiveTime value="999114749302" /> <value unit=&quot ;k/cumm" xsi:type="PQ" value="1.1"/> < interpretationCode codeSystem="local" code="*" />< referenceRange> <observationRange> <text> 0.1-1.0</text> </observationRange> </ referenceRange> </observation> </component> < component> <observation moodCode="EVN" classCode=" OBS"> <templateId root="2.16.840.1.232215.10.20.22.4.2& quot; /> <id nullFlavor="NA" /> <code codeSystem="local" code="MO%" displayName=" MONOCYTE %" /> <statusCode code="completed&quot ; /> <effectiveTime value="285065466659" /> < value unit="%" xsi:type="PQ" value="13.9" /><interpretationCode codeSystem="local" code="*" /&gt ; <referenceRange> <observationRange> <text>4-6</text> </observationRange> & lt;/referenceRange> </observation> </component> <component> <observation moodCode="EVN" classCode=& quot;OBS"> <templateId root=" 2.16.840.1.668513.10..22.4.2" /> <id nullFlavor="NA& quot; /> <code codeSystem="local" code="MPVT&quot ; displayName="MEAN PLATELET VOLUME" /> <statusCode code="completed"/> <effectiveTime value=" 290976407834" /> <value unit="fl" xsi:type=" PQ" value="9.4" /> <referenceRange> < observationRange> <text>8.5-10.9</text> & lt;/observationRange> </referenceRange> </ observation> </component> <component> < observation moodCode="EVN" classCode="OBS"> < templateId root="2.16.840.1.182620.10.20.22.4.2" /> < id nullFlavor="NA" /> <code codeSystem="local&quot ; code="RBC" displayName="RED BLOOD CELL" /> &lt ;statusCode code="completed" /> <effectiveTime value=& quot;534495701031" /> <value unit="m/cumm" xsi: type="PQ" value="4.71" /> <referenceRange&gt ; <observationRange> <text>4.00-6.00</ text> </observationRange> </referenceRange> </observation> </component> <component> & lt;observation moodCode="EVN" classCode="OBS"> & lt;templateId root="2.16.840.1.678286.10.20.22.4.2" /> &lt ;id nullFlavor="NA"/> <code codeSystem="local&quot ; code="RDW" displayName="RED CELLDISTRIBUTION WIDTH" /> <statusCode code="completed" /> < effectiveTime value="785155335982" /> <value unit=&quot ;%" xsi:type="PQ" value="14.7" /> & lt;referenceRange> <observationRange> <text& gt;11.0-15.6</text> </observationRange> </ referenceRange> </observation> </component> < component> <observation moodCode="EVN" classCode=" OBS"> <templateId root="2.16.840.1.161193.10.20.22.4.2& quot; /> <id nullFlavor="NA" /> <code codeSystem="local" code="WBC" displayName="WHITEBLOOD CELL" /> <statusCode code="completed" /> <effectiveTime value="725726676546" /> <value unit="k/cumm" xsi:type="PQ" value="8.0" /> <referenceRange> <observationRange> & lt;text>5.0-10.0</text> </observationRange> & lt;/referenceRange> </observation> </component> <component> <observation moodCode="EVN" classCode="OBS& quot;> <templateId root="2.16.840.1.952360.10.20.22.4.2&quot ; /> <id nullFlavor="NA" /> <code codeSystem= "local" code="HGBT" displayName="HEMOGLOBIN" /&gt ; <statusCode code="completed" /> < effectiveTime value="748885503277" /> <value unit=&quot ;gm/dL" xsi:type="PQ" value="12.6" /> < referenceRange> <observationRange> <text> 12.0-16.0</text> </observationRange> </ referenceRange> </observation> </component> < component> <observationmoodCode="EVN" classCode="OBS "> <templateId root="2.16.840.1.508037.10.20.22.4.2& quot; /> <id nullFlavor="NA" /> <code codeSystem="local" code="HCTT" displayName="HEMATOCRIT& quot; /> <statusCode code="completed" /> & lt;effectiveTime value="492733043248" /> <value unit=& quot;%" xsi:type="PQ" value="39.3"/> <referenceRange> <observationRange> < text>37.0-47.0</text> </observationRange> &lt ;/referenceRange> </observation> </component> & lt;component> <observation moodCode="EVN" classCode=&quot ;OBS"> <templateId root="2.16.840.1.899262.10..22.4.2 " /> <id nullFlavor="NA" /> <code codeSystem="local" code="NRBC%" displayName=" NRBC %" /> <statusCode code="completed" /& gt; <effectiveTime value="683402211199" /> &lt ;value unit="/100WBC" xsi:type="PQ" value="0.0" /& gt; <referenceRange> <observationRange> <text>0.0-0.0</text> </observationRange> </referenceRange> </observation> </component&gt ; <component> <observation moodCode="EVN" classCode="OBS"> <templateId root=" 2.16.840.1.655537.10..22.4.2" /> <id nullFlavor="NA& quot; /> <code codeSystem="local" code="NRBC#&quot ; displayName="NRBC #" /> <statusCode code=" completed" /> <effectiveTime value="787629480904" /> <value unit="k/cumm" xsi:type="PQ" value=& quot;0.00" /> <interpretationCode codeSystem="local& quot; code="*" /> <referenceRange> < observationRange> <text>0.03-0.11</text> </observationRange> </referenceRange> </ observation> </component> <component> < observation moodCode="EVN" classCode="OBS"> < templateId root="2.16.840.1.994495.10.20.22.4.2" /> < id nullFlavor="NA" /> <code codeSystem="local&quot ; code="PLTT" displayName="PLATELET COUNT" /> & lt;statusCode code="completed" /> <effectiveTime value=& quot;042580589221" /> <value unit="k/cumm" xsi: type="PQ" value="207" /> <referenceRange> <observationRange> <text>150-400</text& gt; </observationRange> </referenceRange> </observation> </component> <component> &lt ;observation moodCode="EVN" classCode="OBS"> &lt ;templateId root="2.16.840.1.852001.10.20.22.4.2" /> < id nullFlavor="NA" /> <code codeSystem="local&quot ; code="IG%" displayName="IMMATURE GRANULOCYTE %& quot; /> <statusCode code="completed" /> & lt;effectiveTime value="264668568400" /> <value unit=& quot;%" xsi:type="PQ" value="1.6" /> <interpretationCode codeSystem="local" code="*" /> <referenceRange> <observationRange> <text>0.0-0.6</text> </observationRange> </referenceRange> </observation> </component> <component> <observation moodCode="EVN" classCode= "OBS"> <templateId root=" 2.16.840.1.305732.10.20.22.4.2" /> <id nullFlavor="NA& quot; /> <code codeSystem="local" code="IG#" displayName="IMMATURE GRANULOCYTE #" /> <statusCode code="completed" /> <effectiveTime value=" 054405642633" /> <value unit="k/cumm" xsi:type=& quot;PQ" value="0.13" /> <interpretationCode codeSystem="local" code="*" /> < referenceRange> <observationRange> <text>0.00- 0.09</text> </observationRange> </ referenceRange> </observation> </component> </ organizer> </entry> <entry> <organizer moodCode="EVN " classCode="BATTERY"> <templateId root=" 2.16.840.1.956959.10.20.22.4.1" /> <id nullFlavor="NA&quot ; /> <code codeSystem="local" code="RENAL" displayName="RENAL FUNCTION PANEL" /> <statusCode code=& quot;completed" /> <component> <observation moodCode ="EVN" classCode="OBS"> <templateId root=& quot;2.16.840.1.239607.10.20.22.4.2" /> <id nullFlavor=&quot ;NA" /> <code codeSystem="local" code="K&quot ; displayName="POTASSIUM" /> <statusCode code=" completed" /> <effectiveTime value="242253628500" /> <value unit="mmol/L" xsi:type="PQ" value=& quot;3.6" /> <referenceRange> < observationRange> <text>3.5-5.3</text> </ observationRange> </referenceRange> </observation&gt ; </component> <component> <observationmoodCode= "EVN" classCode="OBS"> <templateId root=&quot ;2.16.840.1.795871.10.20.22.4.2" /> <id nullFlavor="NA& quot; /> <code codeSystem="local" code="eGFR&quot ; displayName="EST GFR (MDRD)" /> <statusCode code=" completed" /> <effectiveTime value="144843770173" /> <value unit="mL/min" xsi:type="PQ" value=& quot;> 60" /> <referenceRange> < observationRange> <text>> 59</text> </observationRange> </referenceRange> </ observation> </component> <component> < observation moodCode="EVN" classCode="OBS"> < templateId root="2.16.840.1.559595.10..22.4.2" /> < id nullFlavor="NA" /> <code codeSystem="local&quot ; code="GAP" displayName="ANION GAP" /> < statusCode code="completed" /> <effectiveTime value=& quot;925349167347" /> <value unit="mmol/L" xsi: type="PQ" value="7" /> <referenceRange> <observationRange> <text>5-15</text> </observationRange> </referenceRange> </ observation> </component> <component> < observation moodCode="EVN" classCode="OBS"> < templateId root="2.16.840.1.099628.10..22.4.2" /> < id nullFlavor="NA" /> <code codeSystem="local&quot ; code="eCrCl" displayName="EST CrCl (CG)" /> & lt;statusCode code="completed" /> <effectiveTime value= "789643426094" /> <value unit="mL/min" xsi: type="PQ" value="> 60" /> < referenceRange> <observationRange> <text> > 59</text> </observationRange> </ referenceRange> </observation> </component> < component> <observation moodCode="EVN" classCode=" OBS"> <templateId root="2.16.840.1.259245.10.20.22.4.2& quot; /> <id nullFlavor="NA" /> <code codeSystem="local" code="GLU" displayName="GLUCOSE&quot ; /> <statusCode code="completed" /> < effectiveTime value="158372728145" /> <value unit=&quot ;mg/dL" xsi:type="PQ" value="160" /> < interpretationCode codeSystem="local" code="*" /> <referenceRange> <observationRange> < text>70-99</text> </observationRange> </ referenceRange> </observation> </component> < component> <observation moodCode="EVN" classCode=" OBS"> <templateId root="2.16.840.1.411119.10.20.22.4.2& quot; /> <id nullFlavor="NA" /> <code codeSystem="local" code="CA" displayName="CALCIUM&quot ; /> <statusCode code="completed" /> < effectiveTime value="528909390690" /> <value unit=&quot ;mg/dL" xsi:type="PQ" value="9.1" /> < referenceRange> <observationRange> <text>8.5-10.1& lt;/text> </observationRange> </referenceRange& gt; </observation> </component> <component> <observation moodCode="EVN" classCode="OBS"> <templateId root="2.16.840.1.919932.10.20.22.4.2" /> <id nullFlavor="NA" /> <code codeSystem=&quot ;local" code="BUN" displayName="BLOOD UREA NITROGEN" /& gt; <statusCode code="completed" /> < effectiveTime value="795903578407" /> <value unit=&quot ;mg/dL" xsi:type="PQ" value="12" /> < referenceRange> <observationRange> <text> 7-20</text> </observationRange> </ referenceRange> </observation> </component> < component> <observation moodCode="EVN" classCode=" OBS"> <templateId root="2.16.840.1.807177.10.20.22.4.2& quot; /> <id nullFlavor="NA" /> <code codeSystem="local" code="CREAT" displayName="CREATININE " /> <statusCode code="completed" /> & lt;effectiveTime value="956421478479" /> <value unit=" mg/dL" xsi:type="PQ" value="0.8" /> < referenceRange> <observationRange> <text> 0.6-1.0</text> </observationRange> </ referenceRange> </observation> </component> < component> <observation moodCode="EVN" classCode=" OBS"> <templateId root="2.16.840.1.759006.10.20.22.4.2& quot; /> <id nullFlavor="NA" /> <code codeSystem="local" code="NA" displayName="SODIUM" /> <statusCode code="completed" /> < effectiveTime value="648143318551" /> <value unit=&quot ;mmol/L" xsi:type="PQ" value="133" /> < interpretationCode codeSystem="local" code="*" /> <referenceRange> <observationRange> < text>135-148</text> </observationRange> </ referenceRange> </observation> </component> < component> <observation moodCode="EVN" classCode=" OBS"> <templateId root="2.16.840.1.810118.10.20.22.4.2& quot; /> <id nullFlavor="NA" /> <code codeSystem="local" code="CL" displayName="CHLORIDE&quot ; /> <statusCode code="completed" /> < effectiveTime value="443769469407" /> <value unit=&quot ;mmol/L" xsi:type="PQ"value="95" /> < interpretationCode codeSystem="local" code="*" /> <referenceRange> <observationRange> < text>98-110</text> </observationRange> </ referenceRange></observation> </component> < component> <observation moodCode="EVN" classCode=" OBS"> <templateId root="2.16.840.1.536381.10.20.22.4.2& quot; /> <id nullFlavor="NA" /> <code codeSystem="local" code="CO2" displayName="CARBON DIOXIDE" /> <statusCode code="completed" /> <effectiveTime value="055911422344" /> < value unit="mmol/L" xsi:type="PQ" value="31" /&gt ; <referenceRange> <observationRange> < text>21-32</text> </observationRange> </ referenceRange> </observation> </component> < component> <observation moodCode="EVN" classCode=" OBS"> <templateId root="2.16.840.1.396462.10.20.22.4.2& quot; /> <id nullFlavor="NA" /> <code codeSystem="local" code="ALB" displayName="ALBUMIN&quot ; /> <statusCode code="completed" /> < effectiveTime value="652658389241" /> <value unit=&quot ;gm/dL" xsi:type="PQ" value="3.3" /> < interpretationCodecodeSystem="local" code="*" /> <referenceRange> <observationRange> < text>3.4-5.0</text> </observationRange> </ referenceRange> </observation> </component> < component> <observation moodCode="EVN" classCode=" OBS"> <templateId root="2.16.840.1.472547.10.20.22.4.2& quot; /> <id nullFlavor="NA" /> <code codeSystem="local" code="PHOS" displayName="PHOSPHORUS& quot; /> <statusCode code="completed" /> & lt;effectiveTime value="362351392384" /> <value unit=& quot;mg/dL" xsi:type="PQ" value="3.4" /> & lt;referenceRange> <observationRange> <text& gt;2.5-4.9</text> </observationRange> </ referenceRange> </observation> </component> </ organizer> </entry> <entry> <organizer moodCode="EVN " classCode="BATTERY"><templateId root=" 2.16.840.1.589489.10.20.22.4.1" /> <id nullFlavor="NA&quot ; /> <code codeSystem="local" code="MAG" displayName="MAGNESIUM" /> <statusCode code="completed " /> <component> <observation moodCode="EVN& quot; classCode="OBS"> <templateId root=" 2.16.840.1.758156.10.20.22.4.2" /> <id nullFlavor="NA& quot; /> <code codeSystem="local" code="MAG" displayName="MAGNESIUM" /> <statusCode code=" completed" /> <effectiveTime value="948565458374" /> <value unit="mg/dL" xsi:type="PQ" value=& quot;1.4" /> <interpretationCode codeSystem="local&quot ; code="*" /> <referenceRange> < observationRange> <text>1.8-2.4</text> & lt;/observationRange> </referenceRange> </ observation> </component> </organizer> </entry> & lt;entry> <organizermoodCode="EVN" classCode="BATTERY& quot;> <templateId root="2.16.840.1.626339.10.20.22.4.1" /& gt; <id nullFlavor="NA" /> <code codeSystem=" local" code="GLUMON" displayName="GLUCOSE (POC)" /> <statusCode code="completed" /> <component> <observation moodCode="EVN" classCode="OBS"> <templateId root="2.16.840.1.503923.10.20.22.4.2" /> <id nullFlavor="NA" /> <code codeSystem=" local" code="GLUMON" displayName="GLUCOSE (POC)" /> <statusCodecode="completed" /> < effectiveTime value="148279665509" /> <value unit="mg/ dL" xsi:type="PQ" value="166" /> < interpretationCode codeSystem="local" code="*" /> <referenceRange> <observationRange> < text>70-99</text> </observationRange> </ referenceRange> </observation> </component> </ organizer> </entry></section> Encounters ACCT No. Visit Discharge Status Pt. Type Provider Facility Loc./Unit Complaint Date/Time [id number] 10/23/2013 10/23/2013 CLS Outpatie 14:08:00 23:59:59 nt [id number] 12/09/2013 12/12/2013 DIS Zahraa Brush MD, [facility] 55 05:46:00 13:36:00 [facility] [id number] 12/04/2013 12/04/2013 LIDIA Brush MD, [facility]OP 98 09:12:00 23:59:59 nt [facility] [id number] 05/20/2013 05/23/2013 ANKITA Brush MD, [facility] 72 05:47:00 14:17:00 [facility] [id number] 05/16/2013 05/16/2013 CLS Gurinder Brush MD, [facility]OP 21 13:12:00 23:59:59 nt [facility] [id number] 11/04/2012 11/04/2012 DIS Jeremy Gross MD, Via [facility]ERM 34 02:20:00 04:10:00 y [facility] [id number] 08/22/2017 08/22/2017 CLS Gurinder Cain, 13:40:00 23:59:59 nt Escobar Sandhu [id number] 02/21/2017 02/21/2017 CLS Outpatie [place], 14:10:00 23:59:59 nt Escobar Edson [id number] 08/23/2016 08/23/2016 CLS [facility] [place], 14:10:00 23:59:59 nt Escobar Edson [id number] 03/06/2016 03/06/2016 CLS Outpat[facility] [place], 15:30:00 23:59:59 nt Escobar Edson [id number] 10/20/2015 10/20/2015 CLS Outpat[facility] [place], 09:00:00 23:59:59 nt Escobar Edson [id number] 07/30/2015 07/30/2015 CLS Outpat[facility] [place], 09:40:00 23:59:59 nt Escobar Sandhu [id number] 07/19/2015 07/19/2015 CLS Outpatie [place], 10:35:00 23:59:59 nt Escobar Sandhu [id number] 07/07/2015 07/07/2015 CLS Outpatie [place], 10:05:00 23:59:59 nt Escobar Sandhu [id number] 07/06/2015 07/06/2015 CLS Outpatie [place], 14:53:00 23:59:59 nt Escobar Sandhu [id number] 06/22/2015 06/22/2015 CLS Outpatie [place], 14:22:00 23:59:59 nt Escobar Sandhu [id number] 06/21/2015 06/21/2015 CLS Outpatie [place], 07:34:00 23:59:59 nt Escobar Sandhu [id number] 06/19/2015 06/19/2015 CLS Outpatie [place], 16:24:00 23:59:59 nt Escobar Sandhu [id number] 06/15/2015 06/15/2015 CLS Outpatie [place], 12:39:00 23:59:59 nt Cindi Jimenez [id number] 05/12/2015 05/12/2015 CLS Outpatie [place], 14:10:00 23:59:59 nt Escobar Sandhu [id number] 05/17/2015 Document 10:27:47 [facility] [id number] 09/18/2017 09/18/2017 CLS Outpatie Juhi QUIJANO, Aren BROWN 509 12:16:00 23:59:59 nt [facility] [id number] 08/10/2017 08/13/2017 ANKITA Montoya MD, Aren De La Rosa7TS 496 05:33:00 13:50:00 [facility] [id number] 06/29/2017 06/29/2017 ANKITA Caldwell MD, Aren De La RosaOPRA 266 08:59:00 19:02:00 nt Liliana L NAME Medical ALERT [place] [id number] 06/27/2017 06/27/2017 CLS Preadmit Montez RoseOCVL 244 14:00:00 23:59:59 (NAME Medical ALERT) [place] [id number] 06/22/2017 06/22/2017 Aren Yu MD 391 09:03:00 09:03:00 nt Liliana L NAME Medical ALERT [place] [id number] 04/11/2017 04/11/2017 DIS Montez HendersonRAD 025 08:52:00 08:52:00 nt (NAME Medical ALERT) [place] [id number] 10/04/2015 10/04/2015 CAN Aren Dominguez MD 119 09:30:00 09:30:[address] [facility] [id number] 06/22/2015 06/28/2015 Aren Summers MD4WH 962 05:10:00 16:50:00 t [facility] [id number] 06/16/2015 06/16/2015 Aren Keenan MDPOA 920 06:45:00 06:45:00 nt [facility] [id number] 03/31/2015 03/31/2015 Aren Marques MDJOCELYN 632 08:37:00 08:37:[address] [facility] [id number] 01/05/2015 01/05/2015 Aren Keenan MDOPRA 190 05:14:00 09:33:00 nt [facility] [id number] 12/29/2014 12/29/2014 Aren Keenan MDPOA 235 08:56:00 08:56:00 nt [facility] [id number] 10/14/2014 10/14/2014 CLS Preadmit Arin QUIJANO, Aren De La RosaWRAC 768 10:00:00 23:59:59 [facility] [id number] 09/23/2014 09/23/2014 DIS Emergenc Collinsgilma De La RosaEDS 179 05:27:00 10:38:00 silvina QUIJANO, Mallory [facility] [id number] 03/10/2014 03/16/2014 DIS Interry Manuel MD, Katharine De La Rosa10TS 700 16:03:00 13:11:00 t [facility] [id number] 11/19/2012 11/19/2012 CAN Zahraa Brush MD, Aern De La RosaPRA 221 00:00:00 00:00:00 t [facility] [id number] 10/04/2012 10/04/2012 DIS Gurinder Brush MD, Aren De La RosaOCVL 985 14:19:00 14:19:00 nt [facility] [id number] 10/01/2012 10/01/2012 DIS Zahraa Brush MD, Aren De La RosaPRA 994 05:50:00 08:02:00 t [facility] [id number] 04/15/2018 Gurinder Caldwell MD, Aren De La RosaRAD 466 10:15:00 nt Liliana Kenny [facility] [id number] 11/06/2014 Document 111 13:59:00 Registra tion [id number] 10/16/2014 Document 814 14:11:00 Registra tion [id number] 11/03/2013 Document 162 13:33:00 Registra tion
[2017-09-28 15:36] VITALS: BMI 35.7
[2017-09-28] MEDS ORDERED: HALOPERIDOL 5 MG/ML INJECTION IM PRN (15:39)
[2017-09-28] MEDS: MAGNESIUM OXIDE 400 MG TABLET PO SCH (17:33)
[2017-09-28] MEDS: METFORMIN 1,000 MG TABLET PO SCH (17:33)
[2017-09-28] MEDS: LORazepam 0.5 MG TABLET PO PRN (18:36)
[2017-09-28] MEDS ORDERED: OXYBUTYNIN CHLORIDE 10 MG PO SCH (21:00)
[2017-09-28] MEDS ORDERED: INSULIN GLARGINE 100unit/ml INJECTION SQ SCH (21:00)
[2017-09-28] MEDS: RisperiDONE 0.5 MG TABLET PO SCH (21:10)
[2017-09-28] MEDS: TRIAMCINOLONE 0.1% CREAM 15 G TUBE TOP SCH (21:59)
[2017-09-28] MEDS: HALOPERIDOL 0.5 MG TABLET PO PRN (22:58)
[2017-09-28] MEDS: TRAMADOL 50 MG TABLET PO PRN (23:45)
[2017-09-29] MEDS: LORazepam 0.5 MG TABLET PO PRN ×3 (00:31→20:41)
[2017-09-29] MEDS: LEVOTHYROXINE 137 MCG TABLET PO SCH (06:41)
[2017-09-29] MEDS: MAGNESIUM OXIDE 400 MG TABLET PO SCH ×2 (06:41→17:13)
[2017-09-29] MEDS: DULOXETINE 20 MG CAPSULE PO SCH (08:56)
[2017-09-29] MEDS: RisperiDONE 0.5 MG TABLET PO SCH ×2 (08:56→20:40)
[2017-09-29] MEDS: AMLODIPINE 5 MG TABLET PO SCH (08:56)
[2017-09-29] MEDS: LETROZOLE 2.5 MG TABLET PO SCH (08:56)
[2017-09-29] MEDS: LISINOPRIL 40 MG TABLET PO SCH (08:56)
[2017-09-29] MEDS: TRIAMCINOLONE 0.1% CREAM 15 G TUBE TOP SCH (08:56)
[2017-09-29] MEDS: METFORMIN 1,000 MG TABLET PO SCH ×2 (08:56→17:12)
[2017-09-29] MEDS: FERROUS SULFATE 324 MG TABLET PO SCH (08:57)
[2017-09-29] MEDS ORDERED: NON-FORMULARY MEDICATION 1 EACH EACH (Ferrous Sulfate [Iron] 325 MG) PO SCH (09:00)
--- NOTE | 2017-09-29 15:10 | History & Physical Report ---
History of Present Illness Date: 09/29/17 Chief complaint: increasing delusions and somatic complaints HPI: Patient is a 76-year-old female who was admitted to [facility] due to increased delusional and somatic complaints ever since she had a lumpectomy in July. She does have a known history of schizophrenia. She resides at [facility]. Nursing staff reports she's been complaining of congestion and cough. When asked how long she's been having the symptoms she reports "8-10 years." She does think her cough might be a little bit worse and would like some cough drops or cough syrup. Her biggest complaint is dry skin and itching. Information is taken from the patient, minimal information from [facility], and her ER note. Review of Systems All systems PM: 10-point ROS was reviewed, no additional remarkable complaints except (cough, congestion, dry skin/itch, intermittent sciatic nerve pain, variable abdominal pain) Past Medical History Medical History Dementia Hypertension Diabetes mellitus type 2 GERD Schizophrenia Bipolar disorder Overactive bladder Hyperlipidemia Rosacea Hypothyroidism Breast cancer Allergic rhinitis Surgical History: Patient reports bilateral total knee replacements, right shoulder replacement and Family History: Unavailable at this time Family History Updates: . - Social History Smoking status: Unknown if ever smoked Housing: detention Social history: PCP-Jasmeet Rose ([place]) Contact-1)Paramjit Haddadedelmira (guardian)-[phone] 2)Shan Ferreira ([id number]) [phone] She is listed as a full code in her detention information Medications Home Medications Medication Instructions Recorded Confirmed Type CALCIUM CARBONATE Chewable [Tums] 1,000 mg PO Q6H PRN 09/28/17 09/28/17 History Duloxetine HCl [Duloxetine HCl] 20 mg PO DAILY 09/28/17 09/28/17 History Ferrous Sulfate [Iron] 325 mg PO DAILY 09/28/17 09/28/17 History Insulin Glargine,Hum.rec.anlog 12 unit SQ HS 09/28/17 09/28/17 History [Lantus Solostar] Letrozole [Letrozole] 2.5 mg PO DAILY 09/28/17 09/28/17 History Levothyroxine Sodium 137 mcg PO ACB 09/28/17 09/28/17 History [Levothyroxine Sodium] Magnesium Hydroxide [Milk of 30 ml PO DAILY PRN 09/28/17 09/28/17 History Magnesia] Magnesium Oxide [Magnesium] 400 mg PO ACBID 09/28/17 09/28/17 History Metformin HCl [Glucophage] 1,000 mg PO BID 09/28/17 09/28/17 History Oxybutynin Chloride [Oxybutynin 10 mg PO HS 09/28/17 09/28/17 History Chloride ER] Potassium Chloride [Potassium 20 meq PO TID 09/28/17 09/28/17 History Chloride] RX: Acetaminophen 650 mg PO Q4H PRN 09/28/17 09/28/17 History RX: Amlodipine [Norvasc] 5 mg PO DAILY 09/28/17 09/28/17 History RX: LORazepam [Ativan] 0.5 mg PO Q8H PRN 09/28/17 09/28/17 History RX: Lisinopril [Prinivil] 40 mg PO DAILY 09/28/17 09/28/17 History RX: Tramadol [Ultram] 25 mg PO QID PRN 09/28/17 09/28/17 History Triamcinolone 0.1% Cream 15 G 1 applicatio TOP DAILY 09/28/17 09/28/17 History [Kenalog] risperiDONE [Risperidone] 0.5 mg PO QAM 09/28/17 09/28/17 History risperiDONE [Risperidone] 1 mg PO HS 09/28/17 09/28/17 History Allergies Allergy/AdvReac Type Severity Reaction Status Date / Time amoxicillin Allergy Verified 09/28/17 12:11 clavulanic acid Allergy Verified 09/28/17 12:11 [From Augmentin] Penicillins Allergy Verified 09/28/17 12:11 Sulfa (Sulfonamide Allergy Verified 09/28/17 12:11 Antibiotics) trifluoperazine Allergy Verified 09/28/17 12:11 Exam Vital Signs: Temperature 97.3 F 09/29/17 08:00 Pulse Rate 91 09/29/17 08:00 Respiratory Rate 18 09/29/17 08:00 Blood Pressure 143/69 H 09/29/17 08:00 Pulse Oximetry 94 09/29/17 08:00 Height/Weight/BMI: Height 1.6 m Weight 91.6 kg Body Mass Index 35.7 - Constitutional Present: no acute distress, well nourished, well developed, obese - Routine HEENT Exam Head: Present: normocephalic, atraumatic ENT: Present: mucous membranes moist, oropharynx clear - Routine Neck Exam Present: supple. Absent: lymphadenopathy - Routine Respiratory Exam Present: CTA bilaterally, rales (bilateral bases). Absent: wheezes - Routine Cardiovascular Exam Present: RRR, murmur - Routine Abdominal Exam Present: soft, normoactive bowel sounds. Absent: tenderness, distended - Routine Extremities Exam Present: no edema, normal capillary refill - Routine Skin Exam Present: dry, warm Comments: Dry skin noted to bilateral arms. She has several scabs on her face and arms. - Routine Neurological Exam Present: alert, CN II-XII intact, moving all extremities, normal speech. Absent : facial asymmetry, tremors - Routine Psychiatric Exam Present: normal affect, cooperative Results - Labs CBC & Chem 7: 09/28/17 13:06 09/28/17 13:06 Assessment and Plan (1) Acute psychosis Current visit: Yes Status: Acute Assessment and Plan: Assessment Delusions and increasing somatic complaints following recent lumpectomy Cough-? acute vs chronic vs acute on chronic Dry skin Dementia Hypertension Diabetes mellitus type 2 GERD Schizophrenia Bipolar disorder Overactive bladder Hyperlipidemia Rosacea Hypothyroidism Breast cancer Allergic rhinitis Plan Agree with admission to [facility] for psych evaluation and management and to provide a safe environment. In regard to her cough, will order PRN cough drops and Robitussin. Monitor for fever or increasing symptoms. It sounds like this is a chronic problem for her. No evidence of obvious infection at this time. Continue metformin and insulin for blood sugar control. Based on a hemoglobin of 7.0 and her recent blood sugars all greater than 180, will increase her Lantus from 12 units to 15 units daily at bedtime. Continue Accu-Cheks. Cetaphil moisturizing lotion for dry skin daily with triamcinolone acetonide cream PRN itch. [facility] records and ER note reviewed. We will continue to manage patient medically throughout her stay. Thank you for the consult. - Physician Narrative Physician: Fred Arthur MD Narrative: Date: 09/29/17 Time: 540 I have independently evaluated and examined this patient. I reviewed the chart, the patient's history, and the PRODUCTION METAL SPRAYER/PA's documented findings as above. We discussed and formulated the assessment and plan as above with additions as below: Patient is in [facility] for increased delusions and somatic complaints. She c/ o cough for past 8-9 years. She also c/o black stools overnight. Nurse aware of only one stool. NAD. CTAB. RRR w/ murmur radiating to carotids. S/NT/ND +BS. No edema. Alert. CN II-XII intact. HARMAN Agree with admission to [facility]. Start cough drop and Robitussin. If it is verified this has been a chronic cough, would switch from Lisinopril to ARB. Continue metformin and insulin and monitor blood sugars. No indication of numerous stools. Monitor. Hgb is 9.7. Continue iron. Check TSH. Hospital Course Summary Disclaimer: The visit summary below is not to be considered part of the above Progress Note. Hospital Course: 09/29/17-hospitalist consultation Agree with admission to [facility] for psych evaluation and management and to provide a safe environment. In regard to her cough, will order PRN cough drops and Robitussin. Monitor for fever or increasing symptoms. It sounds like this is a chronic problem for her. No evidence of obvious infection at this time. Continue metformin and insulin for blood sugar control. Based on a hemoglobin of 7.0 and her recent blood sugars all greater than 180, will increase her Lantus from 12 units to 15 units daily at bedtime. Continue Accu-Cheks. Cetaphil moisturizing lotion for dry skin daily with triamcinolone acetonide cream PRN itch. We will continue to manage patient medically throughout her stay. Thank you for the consult.
[2017-09-29] MEDS ORDERED: TRIAMCINOLONE 0.025% CREAM 15 G TUBE TOP PRN (15:33)
[2017-09-29] MEDS: ACETAMINOPHEN 325 MG TABLET PO PRN (15:39)
[2017-09-29] MEDS: CETAPHIL MOISTURIZING TOP SCH (17:13)
[2017-09-29] MEDS: TRAMADOL 50 MG TABLET PO PRN (20:41)
[2017-09-29] MEDS: INSULIN GLARGINE 100unit/ml INJECTION SQ SCH (20:47)
[2017-09-29] MEDS: GUAIFENESIN 200mg/10ml ORAL LIQUID PO PRN (22:59)
[2017-09-30] MEDS: LEVOTHYROXINE 137 MCG TABLET PO SCH (06:10)
[2017-09-30] MEDS: MAGNESIUM OXIDE 400 MG TABLET PO SCH ×2 (06:10→17:16)
[2017-09-30] MEDS: METFORMIN 1,000 MG TABLET PO SCH ×2 (08:24→17:15)
[2017-09-30] MEDS: RisperiDONE 0.5 MG TABLET PO SCH ×2 (08:24→20:17)
[2017-09-30] MEDS: LISINOPRIL 40 MG TABLET PO SCH (08:24)
[2017-09-30] MEDS: DULOXETINE 20 MG CAPSULE PO SCH (08:24)
[2017-09-30] MEDS: LETROZOLE 2.5 MG TABLET PO SCH (08:24)
[2017-09-30] MEDS: FERROUS SULFATE 324 MG TABLET PO SCH (08:25)
[2017-09-30] MEDS: AMLODIPINE 5 MG TABLET PO SCH (08:25)
[2017-09-30] MEDS: CETAPHIL MOISTURIZING TOP SCH (12:47)
[2017-09-30] MEDS: TRIAMCINOLONE 0.1% CREAM 15 G TUBE TOP SCH (12:47)
[2017-09-30] MEDS: ACETAMINOPHEN 325 MG TABLET PO PRN (13:56)
[2017-09-30] MEDS: LORazepam 0.5 MG TABLET PO PRN (13:56)
--- NOTE | 2017-09-30 14:02 | 24 Hour Neuropsychiatic Eval ---
Date of Admission: 09/28/17 15:05 Chief complaint: "My mind was playing tricks on me" History of Present Illness: 76 Y/O CF with a long hx of mental illness sent from a [place] for increasing paranoia and delusions. retirement reports since July the pt has been more irritable with mood fluctuations. She has been delusional believing she is . On face to face the pt is sleepy and some what hard to arouse. She is not a great historian. She does admit her mind has been playing tricks on her but is not able to elaborate. Denies S/I. STRESSORS: retirement staff reports the pt had a lumpectomy in July and symptoms started shortly after. PSYCH ROS: Pt is sleepy and nursing reports mood fluctuations with tearfulness at times. Pt is not able to describe her mood at this time. She denies feeling anxious. She states she has had AH but again is not able to elaborate. PAST PSYCH: Unclear at this time. Pt states she been admitted to [facility] approximately 4-5 times but this is unconfirmed. She is currently on Risperdal and Cymbalta. [facility] Patient Stated Medical History Dementia Yes Hypertension Yes Diabetes Mellitus Type 2 Yes Gastroesophageal Reflux Yes Disease Hx Urinary Tract Infection Yes: HX Anemia Yes Other Infectious Yes: HX STAPH INFECTION "YEARS AGO" Bipolar Disorder Yes Depression Yes Schizophrenia Yes Surgical History: Patient reports bilateral total knee replacements, right shoulder replacement and - Social History Smoking status: Unknown if ever smoked Mental Status Exam Vitals: Last Vital Signs Temp 97.0 F 09/30/17 08:00 Pulse 92 09/30/17 08:00 Resp 18 09/30/17 08:00 BP 155/75 H 09/30/17 08:00 Pulse Ox 96 09/30/17 08:00 Height: 1.6 m Weight: 91.6 kg - Mental Status Exam Muscle Strength/Tone: Normal Dressing: Casual Grooming: Fair Attitude: Guarded Motor Activity: Retardation Eye Contact: Poor Speech: Slowed Volume: Soft Rhythm: Slurred Orientation: Oriented X4 Mood: Neutral Affect: Blunted Rate of Thoughts: Delayed Thought Organization: [place] Associations: Intact Abstract Reasoning: Poor abstract reasoning Thought Content: Delusions Perception/Psychotic: Hx psychosis, not current Language: Naming Impaired Fund of Knowledge: Poor fund of knowledge Memory: Poor-immediate, Poor-recent Suicidal Ideation: None Homicidal Ideation: None Insight: Poor Judgement: Poor Impulse Control: Poor - Laboratory Result Diagrams: 09/28/17 13:06 09/28/17 13:06 Laboratory Results - last 24 hr 09/29/17 09/30/17 09/30/17 20:25 06:15 07:51 Glucometer 271 182 TSH 1.92 Assessment and Plan (1) Unspecified schizophrenia, chronic condition with acute exacerbation Current visit: Yes Status: Acute Conntinue to evaluate and stabilize. Will continue Risperdal and Cymbalta. Collateral from [place]
--- NOTE | 2017-09-30 14:07 | Neuropsych Progress Note ---
Generations Subjective Date: 09/30/17 - Sujective/Severity of Illness Medications: Acetaminophen (Tylenol) 650 mg PO Q4H PRN PRN Reason: Pain Last Admin: 09/30/17 13:56 Dose: 650 mg Amlodipine Besylate (Norvasc) 5 mg PO DAILY [facility] Last Admin: 09/30/17 08:25 Dose: 5 mg Duloxetine HCl (Cymbalta) 20 mg PO DAILY [facility] Last Admin: 09/30/17 08:24 Dose: 20 mg Ferrous Sulfate (Feosol) 324 mg PO WB [facility] Last Admin: 09/30/17 08:25 Dose: 324 mg Guaifenesin (Robitussin Liq) 400 mg PO Q6H PRN PRN Reason: Cough /Congestion Last Admin: 09/29/17 22:59 Dose: 400 mg Haloperidol (Haldol) 0.5 mg PO Q6H PRN PRN Reason: Extreme agitation Last Admin: 09/28/17 22:58 Dose: 0.5 mg Haloperidol Lactate (Haldol) 0.5 mg IM Q6H PRN PRN Reason: Extreme agitation Insulin Glargine (Lantus) 15 unit SQ HS [facility] Last Admin: 09/29/17 20:47 Dose: 15 unit Letrozole (Femara) 2.5 mg PO DAILY [facility] Last Admin: 09/30/17 08:24 Dose: 2.5 mg Levothyroxine Sodium (Synthroid) 137 mcg PO ACB [facility] Last Admin: 09/30/17 06:10 Dose: 137 mcg Lisinopril (Prinivil) 40 mg PO DAILY [facility] Last Admin: 09/30/17 08:24 Dose: 40 mg Lorazepam (Ativan) 0.5 mg PO Q6H PRN PRN Reason: Extreme agitation Last Admin: 09/30/17 13:56 Dose: 0.5 mg Lorazepam (Ativan Inj) 0.5 mg IM Q6H PRN PRN Reason: Extreme agitation Magnesium Hydroxide (Mom) 30 ml PO DAILY PRN PRN Reason: Constipation Magnesium Oxide (Magox) 400 mg PO ACBID [facility] Last Admin: 09/30/17 06:10 Dose: 400 mg Menthol (Ricola Sf) 1 lozenge MM PRN PRN PRN Reason: Cough Metformin HCl (Glucophage) 1,000 mg PO BIDWM [facility] Last Admin: 09/30/17 08:24 Dose: 1,000 mg Multi-Ingredient Lotion (Cetaphil) 1 applic TOP DAILY [facility] Last Admin: 09/30/17 12:47 Dose: 1 applic Nystatin (Mycostatin) 1 applic TP PRN PRN PRN Reason: iritation Last Admin: 09/29/17 20:41 Dose: 1 applic Oxybutynin Chloride (Ditropan) 10 mg PO HS [facility] Last Admin: 09/29/17 20:40 Dose: 10 mg Potassium Chloride (K-Dur 20 Meq Tablet) 20 meq PO TIDWM [facility] Last Admin: 09/30/17 13:56 Dose: 20 meq Risperidone (Risperdal) 1 mg PO HS [facility] Last Admin: 09/29/17 20:40 Dose: 1 mg Risperidone (Risperdal) 0.5 mg PO QAM [facility] Last Admin: 09/30/17 08:24 Dose: 0.5 mg Tramadol HCl (Ultram) 25 mg PO QID PRN PRN Reason: Pain Last Admin: 09/29/17 20:41 Dose: 25 mg Triamcinolone Acetonide (Kenalog) 1 applic TOP DAILY [facility] Last Admin: 09/30/17 12:47 Dose: 1 applic Triamcinolone Acetonide (Kenalog) 1 applic TOP BID PRN PRN Reason: dry skin/itch Subjective: PT seen and chart examined. Nursing reports pt is doing fairly well. Sleeping well and has a good appetite. On face to face the pt is more alert today. She states she is feeling better. Mood is stable. She denies any psychotic symptoms and has a bright affect. Tolerating meds Start Time: 11:30 Stop Time: 11:45 Mental Status Exam Vitals: Last Vital Signs Temp 97.0 F 09/30/17 08:00 Pulse 92 09/30/17 08:00 Resp 18 09/30/17 08:00 BP 155/75 H 09/30/17 08:00 Pulse Ox 96 09/30/17 08:00 Height: 1.6 m Weight: 91.6 kg - Mental Status Exam Muscle Strength/Tone: Normal Dressing: Casual Grooming: Fair Attitude: Guarded Motor Activity: Retardation Eye Contact: Poor Speech: Slowed Volume: Soft Rhythm: Slurred Orientation: Oriented X4 Mood: Neutral Rate of Thoughts: Delayed Thought Organization: [place] Associations: Intact Abstract Reasoning: Poor abstract reasoning Thought Content: Delusions Perception/Psychotic: Hx psychosis, not current Language: Naming Impaired Fund of Knowledge: Poor fund of knowledge Memory: Poor-immediate, Poor-recent Suicidal Ideation: None Homicidal Ideation: None Insight: Poor Judgement: Poor Impulse Control: Poor - Laboratory Result Diagrams: 09/28/17 13:06 09/28/17 13:06 Laboratory Results - last 24 hr 09/29/17 09/30/17 09/30/17 20:25 06:15 07:51 Glucometer 271 182 TSH 1.92 Assessment and Plan (1) Unspecified schizophrenia, chronic condition with acute exacerbation Current visit: Yes Status: Acute Hospital Course Summary Disclaimer: The visit summary below is not to be considered part of the above Progress Note. Hospital Course: 09/29/17-hospitalist consultation Agree with admission to [facility] for psych evaluation and management and to provide a safe environment. In regard to her cough, will order PRN cough drops and Robitussin. Monitor for fever or increasing symptoms. It sounds like this is a chronic problem for her. No evidence of obvious infection at this time. Continue metformin and insulin for blood sugar control. Based on a hemoglobin of 7.0 and her recent blood sugars all greater than 180, will increase her Lantus from 12 units to 15 units daily at bedtime. Continue Accu-Cheks. Cetaphil moisturizing lotion for dry skin daily with triamcinolone acetonide cream PRN itch. We will continue to manage patient medically throughout her stay. Thank you for the consult. 09/30/17 Psych: Pt is more alert today. She is pleasant and does not appear to be responding to internal stimuli. Continue current care
[2017-09-30] MEDS: INSULIN GLARGINE 100unit/ml INJECTION SQ SCH (20:14)
[2017-09-30] MEDS: TRAMADOL 50 MG TABLET PO PRN (20:15)
[2017-09-30] MEDS: HALOPERIDOL 0.5 MG TABLET PO PRN (22:34)
[2017-10-01] MEDS: AMLODIPINE 5 MG TABLET PO SCH (08:31)
[2017-10-01] MEDS: LISINOPRIL 40 MG TABLET PO SCH (08:31)
[2017-10-01] MEDS: METFORMIN 1,000 MG TABLET PO SCH ×2 (08:31→17:50)
[2017-10-01] MEDS: DULOXETINE 20 MG CAPSULE PO SCH (08:31)
[2017-10-01] MEDS: LETROZOLE 2.5 MG TABLET PO SCH (08:31)
[2017-10-01] MEDS: TRIAMCINOLONE 0.1% CREAM 15 G TUBE TOP SCH (08:31)
[2017-10-01] MEDS: MAGNESIUM OXIDE 400 MG TABLET PO SCH ×2 (08:32→17:50)
[2017-10-01] MEDS: LEVOTHYROXINE 137 MCG TABLET PO SCH (08:32)
[2017-10-01] MEDS: RisperiDONE 0.5 MG TABLET PO SCH ×3 (08:33→21:38)
[2017-10-01] MEDS: FERROUS SULFATE 324 MG TABLET PO SCH (08:45)
[2017-10-01] MEDS: MENTHOL COUGH DROPS (RICOLA) MM PRN ×2 (12:17→14:56)
--- NOTE | 2017-10-01 14:12 | Neuropsych Progress Note ---
Generations Subjective Date: 10/01/17 - Sujective/Severity of Illness Medications: Acetaminophen (Tylenol) 650 mg PO Q4H PRN PRN Reason: Pain Last Admin: 09/30/17 13:56 Dose: 650 mg Amlodipine Besylate (Norvasc) 5 mg PO DAILY [facility] Last Admin: 10/01/17 08:31 Dose: 5 mg Duloxetine HCl (Cymbalta) 20 mg PO DAILY [facility] Last Admin: 10/01/17 08:31 Dose: 20 mg Ferrous Sulfate (Feosol) 324 mg PO WB [facility] Last Admin: 10/01/17 08:45 Dose: 324 mg Guaifenesin (Robitussin Liq) 400 mg PO Q6H PRN PRN Reason: Cough /Congestion Last Admin: 09/29/17 22:59 Dose: 400 mg Haloperidol (Haldol) 0.5 mg PO Q6H PRN PRN Reason: Extreme agitation Last Admin: 09/30/17 22:34 Dose: 0.5 mg Haloperidol Lactate (Haldol) 0.5 mg IM Q6H PRN PRN Reason: Extreme agitation Insulin Glargine (Lantus) 15 unit SQ HS [facility] Last Admin: 09/30/17 20:14 Dose: 15 unit Letrozole (Femara) 2.5 mg PO DAILY [facility] Last Admin: 10/01/17 08:31 Dose: 2.5 mg Levothyroxine Sodium (Synthroid) 137 mcg PO ACB [facility] Last Admin: 10/01/17 08:32 Dose: 137 mcg Lisinopril (Prinivil) 40 mg PO DAILY [facility] Last Admin: 10/01/17 08:31 Dose: 40 mg Lorazepam (Ativan) 0.5 mg PO Q6H PRN PRN Reason: Extreme agitation Last Admin: 09/30/17 13:56 Dose: 0.5 mg Lorazepam (Ativan Inj) 0.5 mg IM Q6H PRN PRN Reason: Extreme agitation Magnesium Hydroxide (Mom) 30 ml PO DAILY PRN PRN Reason: Constipation Magnesium Oxide (Magox) 400 mg PO ACBID [facility] Last Admin: 10/01/17 08:32 Dose: 400 mg Menthol (Ricola Sf) 1 lozenge MM PRN PRN PRN Reason: Cough Last Admin: 10/01/17 12:17 Dose: 1 lozenge Metformin HCl (Glucophage) 1,000 mg PO BIDWM [facility] Last Admin: 10/01/17 08:31 Dose: 1,000 mg Nystatin (Mycostatin) 1 applic TP PRN PRN PRN Reason: iritation Last Admin: 09/29/17 20:41 Dose: 1 applic Oxybutynin Chloride (Ditropan) 10 mg PO HS [facility] Last Admin: 09/30/17 20:16 Dose: 10 mg Potassium Chloride (K-Dur 20 Meq Tablet) 20 meq PO TIDWM [facility] Last Admin: 10/01/17 12:04 Dose: 20 meq Risperidone (Risperdal) 1 mg PO HS [facility] Last Admin: 09/30/17 20:17 Dose: 1 mg Risperidone (Risperdal) 0.5 mg PO QAM [facility] Last Admin: 10/01/17 08:33 Dose: 0.5 mg Tramadol HCl (Ultram) 25 mg PO QID PRN PRN Reason: Pain Last Admin: 09/30/17 20:15 Dose: 25 mg Triamcinolone Acetonide (Kenalog) 1 applic TOP DAILY [facility] Last Admin: 10/01/17 08:31 Dose: 1 applic Triamcinolone Acetonide (Kenalog) 1 applic TOP BID PRN PRN Reason: dry skin/itch Subjective: Patient seen and chart reviewed. Case discussed with treatment team. On interview, patient is pleasant and reports she is here because she was "getting upset and insulting people," though not today. She complains of a "raspy throat" and general aches and pains. She says her mood is "real good" now. She denies SI or HI. She does complain of hearing voices in her head but says she knows they are imaginary -- however, she sometimes does what they say - for example, she might hear her or brother telling her what to do, so she throws good stuff away. She denies any hx of command hallucinations to harm anybody. Patient denies any adverse side effects related to psychotropic medications. Nursing staff report patient was labile yesterday, impulsive and demanding, and used call light excessively. PRN Haldol was given at 2235. She has not had similar behavior yet today. Patient has been adherent with medications. Patient slept only 3 hours overnight. VSS. Patient is eating well. Start Time: 09:40 Stop Time: 10:00 Mental Status Exam Vitals: Last Vital Signs Temp 97 F 10/01/17 08:00 Pulse 93 10/01/17 08:00 Resp 18 10/01/17 08:00 BP 155/67 H 10/01/17 08:00 Pulse Ox 93 10/01/17 08:00 Height: 1.6 m Weight: 91.6 kg - Mental Status Exam Muscle Strength/Tone: Normal Dressing: Casual Grooming: Fair Attitude: Cooperative Motor Activity: Retardation Eye Contact: Poor Speech: Slowed Volume: Soft Rhythm: Slurred Orientation: Oriented X4 Mood: Neutral Affect: Relaxed (during interview, labile yesterday through day) Rate of Thoughts: Delayed Thought Organization: [place] Associations: Intact Abstract Reasoning: Poor abstract reasoning Thought Content: Delusions, Somatic Concerns Perception/Psychotic: Psychotic Current Hallucinations: Auditory Language: Naming Impaired Fund of Knowledge: Poor fund of knowledge Memory: Poor-immediate, Poor-recent Suicidal Ideation: Denies Homicidal Ideation: Denies Insight: Poor Judgement: Poor Impulse Control: Poor - Laboratory Result Diagrams: 09/28/17 13:06 09/28/17 13:06 Laboratory Results - last 24 hr 09/30/17 10/01/17 22:44 08:35 Glucometer 195 205 Assessment and Plan (1) Unspecified schizophrenia, chronic condition with acute exacerbation Current visit: Yes Status: Acute Continue current care and review previous records, monitoring behavior - though had significant behaviors yesterday, appears to be more calm today. Hospital Course Summary Disclaimer: The visit summary below is not to be considered part of the above Progress Note. Hospital Course: 09/29/17-hospitalist consultation Agree with admission to [facility] for psych evaluation and management and to provide a safe environment. In regard to her cough, will order PRN cough drops and Robitussin. Monitor for fever or increasing symptoms. It sounds like this is a chronic problem for her. No evidence of obvious infection at this time. Continue metformin and insulin for blood sugar control. Based on a hemoglobin of 7.0 and her recent blood sugars all greater than 180, will increase her Lantus from 12 units to 15 units daily at bedtime. Continue Accu-Cheks. Cetaphil moisturizing lotion for dry skin daily with triamcinolone acetonide cream PRN itch. We will continue to manage patient medically throughout her stay. Thank you for the consult. 09/30/17 Psych: Pt is more alert today. She is pleasant and does not appear to be responding to internal stimuli. Continue current care
--- NOTE | 2017-10-01 16:14 | Progress Note ---
- Date 10/01/17 Subjective: Patient seen while eating breakfast. She has no complaints other than her chronic arthritis pain. She continues to cough, but states this is her chronic cough. She does not feel that it is worsening in any way. She declined cough drops and cough syrup that was offered to her yesterday. Appetite is good. Objective Vital signs: Temperature 96.8 F 10/01/17 15:36 Pulse Rate 89 10/01/17 15:36 Respiratory Rate 16 10/01/17 15:36 Blood Pressure 146/67 H 10/01/17 15:36 Pulse Oximetry 94 10/01/17 15:36 Height/Weight/BMI: Height 1.6 m Weight 91.6 kg Body Mass Index 35.7 - Constitutional Present: no acute distress, well nourished, well developed - Routine HEENT Exam Head: Present: normocephalic, atraumatic - Routine Respiratory Exam Present: CTA bilaterally. Absent: wheezes - Routine Cardiovascular Exam Present: RRR, no murmur - Routine Abdominal Exam Present: soft, non distended, non tender - Routine Extremities Exam Present: no edema, normal capillary refill - Routine Skin Exam Present: dry, warm - Routine Neurological Exam Present: alert - Routine Lymphatic Exam Lymphatic: Absent: adenopathy - Routine Psychiatric Exam Present: normal affect, cooperative Results - Labs CBC & Chem 7: 09/28/17 13:06 09/28/17 13:06 Assessment and Plan (1) Acute psychosis Current visit: Yes Status: Acute Assessment and Plan: Assessment Delusions and increasing somatic complaints following recent lumpectomy Cough-? acute vs chronic vs acute on chronic Dry skin Dementia Hypertension Diabetes mellitus type 2 GERD Schizophrenia Bipolar disorder Overactive bladder Hyperlipidemia Rosacea Hypothyroidism Breast cancer Allergic rhinitis Plan Nurse's notes, psychiatric notes, labs and vitals reviewed Sugars are still elevated, increase Lantus to 17 units daily at bedtime. Continue Accu-Cheks. Patient appears medically stable. No other concerns at this time. - Physician Narrative Narrative: Date: 10/01/17 Time: 1606 Hospital Course Summary Disclaimer: The visit summary below is not to be considered part of the above Progress Note. Hospital Course: 09/29/17 Hospitalist initial consultation: Agree with admission to [facility] for psych evaluation and management and to provide a safe environment. In regard to her cough, will order PRN cough drops and Robitussin. Monitor for fever or increasing symptoms. It sounds like this is a chronic problem for her. No evidence of obvious infection at this time. Continue metformin and insulin for blood sugar control. Based on a hemoglobin of 7.0 and her recent blood sugars all greater than 180, will increase her Lantus from 12 units to 15 units daily at bedtime. Continue Accu-Cheks. Cetaphil moisturizing lotion for dry skin daily with triamcinolone acetonide cream PRN itch. We will continue to manage patient medically throughout her stay. Thank you for the consult. 09/30/17 Psych: Pt is more alert today. She is pleasant and does not appear to be responding to internal stimuli. Continue current care 10/01/17 Hospitalist: Nurse's notes, psychiatric notes, labs and vitals reviewed Sugars are still elevated, increase Lantus to 17 units daily at bedtime. Continue Accu-Cheks. Patient appears medically stable. No other concerns at this time.
[2017-10-01] MEDS: INSULIN GLARGINE 100unit/ml INJECTION SQ SCH ×2 (19:35→21:38)
[2017-10-01] MEDS: TRAMADOL 50 MG TABLET PO PRN (20:59)
[2017-10-01] MEDS: HALOPERIDOL 0.5 MG TABLET PO PRN (22:59)
[2017-10-01] MEDS: LORazepam 0.5 MG TABLET PO PRN (22:59)
[2017-10-02] MEDS: MENTHOL COUGH DROPS (RICOLA) MM PRN ×3 (01:57→10:02)
[2017-10-02] MEDS: MAGNESIUM OXIDE 400 MG TABLET PO SCH ×2 (06:19→17:27)
[2017-10-02] MEDS: LEVOTHYROXINE 137 MCG TABLET PO SCH (06:19)
[2017-10-02] MEDS: LETROZOLE 2.5 MG TABLET PO SCH (08:44)
[2017-10-02] MEDS: LISINOPRIL 40 MG TABLET PO SCH (08:44)
[2017-10-02] MEDS: RisperiDONE 0.5 MG TABLET PO SCH (08:44)
[2017-10-02] MEDS: METFORMIN 1,000 MG TABLET PO SCH ×2 (08:44→17:27)
[2017-10-02] MEDS: DULOXETINE 20 MG CAPSULE PO SCH (08:45)
[2017-10-02] MEDS: AMLODIPINE 5 MG TABLET PO SCH (08:45)
[2017-10-02] MEDS: TRIAMCINOLONE 0.1% CREAM 15 G TUBE TOP SCH (08:47)
[2017-10-02] MEDS: FERROUS SULFATE 324 MG TABLET PO SCH (09:22)
[2017-10-02] MEDS: ACETAMINOPHEN 325 MG TABLET PO PRN (12:47)
--- NOTE | 2017-10-02 14:50 | Neuropsych Progress Note ---
[facility] Subjective Date: 10/02/17 - Sujective/Severity of Illness Medications: Acetaminophen (Tylenol) 650 mg PO Q4H PRN PRN Reason: Pain Last Admin: 10/02/17 12:47 Dose: 650 mg Amlodipine Besylate (Norvasc) 5 mg PO DAILY [facility] Last Admin: 10/02/17 08:45 Dose: 5 mg Duloxetine HCl (Cymbalta) 20 mg PO DAILY [facility] Last Admin: 10/02/17 08:45 Dose: 20 mg Ferrous Sulfate (Feosol) 324 mg PO WB [facility] Last Admin: 10/02/17 09:22 Dose: 324 mg Guaifenesin (Robitussin Liq) 400 mg PO Q6H PRN PRN Reason: Cough /Congestion Last Admin: 09/29/17 22:59 Dose: 400 mg Haloperidol (Haldol) 0.5 mg PO Q6H PRN PRN Reason: Extreme agitation Last Admin: 10/01/17 22:59 Dose: 0.5 mg Haloperidol Lactate (Haldol) 0.5 mg IM Q6H PRN PRN Reason: Extreme agitation Insulin Glargine (Lantus) 15 unit SQ HS [facility] Last Admin: 10/01/17 21:38 Dose: Not Given Letrozole (Femara) 2.5 mg PO DAILY [facility] Last Admin: 10/02/17 08:44 Dose: 2.5 mg Levothyroxine Sodium (Synthroid) 137 mcg PO ACB [facility] Last Admin: 10/02/17 06:19 Dose: 137 mcg Lisinopril (Prinivil) 40 mg PO DAILY [facility] Last Admin: 10/02/17 08:44 Dose: 40 mg Lorazepam (Ativan) 0.5 mg PO Q6H PRN PRN Reason: Extreme agitation Last Admin: 10/01/17 22:59 Dose: 0.5 mg Lorazepam (Ativan Inj) 0.5 mg IM Q6H PRN PRN Reason: Extreme agitation Magnesium Hydroxide (Mom) 30 ml PO DAILY PRN PRN Reason: Constipation Magnesium Oxide (Magox) 400 mg PO ACBID [facility] Last Admin: 10/02/17 06:19 Dose: 400 mg Menthol (Ricola Sf) 1 lozenge MM PRN PRN PRN Reason: Cough Last Admin: 10/02/17 10:02 Dose: 1 lozenge Metformin HCl (Glucophage) 1,000 mg PO BIDWM [facility] Last Admin: 10/02/17 08:44 Dose: 1,000 mg Nystatin (Mycostatin) 1 applic TP PRN PRN PRN Reason: iritation Last Admin: 09/29/17 20:41 Dose: 1 applic Oxybutynin Chloride (Ditropan) 10 mg PO HS [facility] Last Admin: 10/01/17 21:38 Dose: Not Given Potassium Chloride (K-Dur 20 Meq Tablet) 20 meq PO TIDWM [facility] Last Admin: 10/02/17 12:46 Dose: 20 meq Risperidone (Risperdal) 0.5 mg PO QAM [facility] Last Admin: 10/02/17 08:44 Dose: 0.5 mg Risperidone (Risperdal) 1 mg PO 16 [facility] Tramadol HCl (Ultram) 25 mg PO QID PRN PRN Reason: Pain Last Admin: 10/01/17 20:59 Dose: 25 mg Triamcinolone Acetonide (Kenalog) 1 applic TOP DAILY [facility] Last Admin: 10/02/17 08:47 Dose: 1 applic Triamcinolone Acetonide (Kenalog) 1 applic TOP BID PRN PRN Reason: dry skin/itch Subjective: Patient seen and chart reviewed. Case discussed with treatment team. On interview, patient is quite pleasant and reports she feels well physically. She denies SI or HI. She does complain of hearing voices in her head but says she knows they are imaginary -- however, she sometimes does what they say - for example, she might hear her or brother telling her what to do, so she throws good stuff away. She denies any hx of command hallucinations to harm anybody. Patient denies any adverse side effects related to psychotropic medications. Nursing staff report patient can be demanding and labile, requiring PO Haldol and Ativan PRN last night - which seemed to be helpful. Appears patient may be sundowning. Patient has been adherent with medications. Patient slept well overnight. VSS. Patient is eating well. Start Time: 12:20 Stop Time: 12:40 Mental Status Exam Vitals: Last Vital Signs Temp 97.8 F 10/02/17 07:00 Pulse 101 H 10/02/17 07:00 Resp 22 10/02/17 07:00 BP 137/65 10/02/17 07:00 Pulse Ox 95 10/02/17 07:00 Height: 1.6 m Weight: 92.3 kg - Mental Status Exam Muscle Strength/Tone: Normal Dressing: Casual Grooming: Fair Attitude: Cooperative Motor Activity: Retardation Eye Contact: Poor Speech: Slowed Volume: Soft Rhythm: Slurred Orientation: Oriented X4 Mood: Euthymic Affect: Relaxed (during interview though labile with staff at times) Rate of Thoughts: Delayed Thought Organization: Chana Associations: Intact Abstract Reasoning: Poor abstract reasoning Thought Content: Delusions, Somatic Concerns Perception/Psychotic: Psychotic Current Hallucinations: Auditory Language: Naming Impaired Fund of Knowledge: Poor fund of knowledge Memory: Poor-immediate, Poor-recent Suicidal Ideation: Denies Homicidal Ideation: Denies Insight: Poor Judgement: Poor Impulse Control: Poor - Laboratory Result Diagrams: 09/28/17 13:06 09/28/17 13:06 Laboratory Results - last 24 hr 10/01/17 10/01/17 10/02/17 15:16 19:39 06:21 Glucometer 178 215 180 Assessment and Plan (1) Unspecified schizophrenia, chronic condition with acute exacerbation Current visit: Yes Status: Acute Will change timing of Risperdal to 0.5mg PO q AM and 1mg PO q 1600 to target sundowning; monitor behavior tonight - may need additional medication to target sundowning behaviors/irritability. Hospital Course Summary Disclaimer: The visit summary below is not to be considered part of the above Progress Note. Hospital Course: 09/29/17 Hospitalist initial consultation: Agree with admission to [facility] for psych evaluation and management and to provide a safe environment. In regard to her cough, will order PRN cough drops and Robitussin. Monitor for fever or increasing symptoms. It sounds like this is a chronic problem for her. No evidence of obvious infection at this time. Continue metformin and insulin for blood sugar control. Based on a hemoglobin of 7.0 and her recent blood sugars all greater than 180, will increase her Lantus from 12 units to 15 units daily at bedtime. Continue Accu-Cheks. Cetaphil moisturizing lotion for dry skin daily with triamcinolone acetonide cream PRN itch. We will continue to manage patient medically throughout her stay. Thank you for the consult. 09/30/17 Psych: Pt is more alert today. She is pleasant and does not appear to be responding to internal stimuli. Continue current care 10/01/17 Hospitalist: Nurse's notes, psychiatric notes, labs and vitals reviewed Sugars are still elevated, increase Lantus to 17 units daily at bedtime. Continue Accu-Cheks. Patient appears medically stable. No other concerns at this time. 10/02/17 Psych: Will change timing of Risperdal to 0.5mg PO q AM and 1mg PO q 1600 to target sundowning; monitor behavior tonight - may need additional medication to target sundowning behaviors/irritability.
--- NOTE | 2017-10-02 16:24 | Progress Note ---
- Date 10/02/17 Subjective: Patient seen at nursing request due to new onset of R sided abdominal pain w/ radiation to the back. She had a "moderate" BM this morning. No fever. No urinary sxs. By the time I was in to see patient, she was lying in bed with her depends around her upper thighs and her shirt pulled up above her abdomen and states that when she took her "pants down," the pain improved. No nausea or vomiting. Objective Vital signs: Temperature 97.8 F 10/02/17 07:00 Pulse Rate 101 H 10/02/17 07:00 Respiratory Rate 22 10/02/17 07:00 Blood Pressure 137/65 10/02/17 07:00 Pulse Oximetry 95 10/02/17 07:00 Vital signs this afternoon: BP 132/68, P 80, T98.2, RR16, O2 95% RA Height/Weight/BMI: Height 1.6 m Weight 92.3 kg Body Mass Index 35.7 - Constitutional Present: no acute distress, well nourished, well developed, obese - Routine HEENT Exam Head: Present: normocephalic, atraumatic Comments: scabs on face - Routine Respiratory Exam Present: CTA bilaterally. Absent: wheezes - Routine Cardiovascular Exam Present: RRR, murmur - Routine Abdominal Exam Present: soft, tenderness (epigastric and RUQ), organomegaly (liver edge palpable at least 3-4cm below ribs), mass (mass vs hepatomegaly epigastric region. Firm, fixed mass at least the size of a softball in epigastric region. Tenderness with palpation.). Absent: guarding, rigid, Astudillo Duong's sign Comments: multiple scabs on abdomen (chronic - pt is a "grape picker") bulging flanks consistent with ascites - Routine Extremities Exam Present: no edema, normal capillary refill - Routine Skin Exam Present: dry, warm - Routine Neurological Exam Present: alert - Routine Lymphatic Exam Lymphatic: Absent: adenopathy - Routine Psychiatric Exam Present: normal affect, cooperative Results - Labs CBC & Chem 7: 09/28/17 13:06 09/28/17 13:06 Assessment and Plan (1) Acute psychosis Current visit: Yes Status: Acute Assessment and Plan: Assessment acute abdominal pain - new diagnosis 10/02/17 hepatomegaly - new diagnosis 10/02/17 Delusions and increasing somatic complaints following recent lumpectomy Cough-? acute vs chronic vs acute on chronic Dry skin Dementia Hypertension Diabetes mellitus type 2 GERD Schizophrenia Bipolar disorder Overactive bladder Hyperlipidemia Rosacea Hypothyroidism Breast cancer Allergic rhinitis Plan Check CBC, BMP, liver panel, UA, complete abdominal US for evaluation of her pain and hepatomegaly. At present, patient is comfortable and resting, no pain medication needed. Make NPO. Case discussed with Dr. Jewell. Treatment plan to be determined after US is resulted. - Physician Narrative Narrative: Date: 10/02/17 Time: 1621 Hospital Course Summary Disclaimer: The visit summary below is not to be considered part of the above Progress Note. Hospital Course: 09/29/17 Hospitalist initial consultation: Agree with admission to [facility] for psych evaluation and management and to provide a safe environment. In regard to her cough, will order PRN cough drops and Robitussin. Monitor for fever or increasing symptoms. It sounds like this is a chronic problem for her. No evidence of obvious infection at this time. Continue metformin and insulin for blood sugar control. Based on a hemoglobin of 7.0 and her recent blood sugars all greater than 180, will increase her Lantus from 12 units to 15 units daily at bedtime. Continue Accu-Cheks. Cetaphil moisturizing lotion for dry skin daily with triamcinolone acetonide cream PRN itch. We will continue to manage patient medically throughout her stay. Thank you for the consult. 09/30/17 Psych: Pt is more alert today. She is pleasant and does not appear to be responding to internal stimuli. Continue current care 10/01/17 Hospitalist: Nurse's notes, psychiatric notes, labs and vitals reviewed Sugars are still elevated, increase Lantus to 17 units daily at bedtime. Continue Accu-Cheks. Patient appears medically stable. No other concerns at this time. 10/02/17 Psych: Will change timing of Risperdal to 0.5mg PO q AM and 1mg PO q 1600 to target sundowning; monitor behavior tonight - may need additional medication to target sundowning behaviors/irritability. 10/02/17 Hospitalist Check CBC, BMP, liver panel, UA, complete abdominal US for evaluation of her pain and hepatomegaly. At present, patient is comfortable and resting, no pain medication needed. Make NPO. Case discussed with Dr. Jewell. Treatment plan to be determined after US is resulted.
[2017-10-02] MEDS: RisperiDONE 1 MG TABLET PO SCH (17:27)
[2017-10-02] MEDS: INSULIN GLARGINE 100unit/ml INJECTION SQ SCH (21:02)
[2017-10-02] MEDS: LORazepam 0.5 MG TABLET PO PRN (21:59)
[2017-10-02] MEDS: HALOPERIDOL 0.5 MG TABLET PO PRN (21:59)
[2017-10-03] MEDS: LEVOTHYROXINE 137 MCG TABLET PO SCH (06:21)
[2017-10-03] MEDS: MENTHOL COUGH DROPS (RICOLA) MM PRN (06:44)
[2017-10-03] MEDS: METFORMIN 1,000 MG TABLET PO SCH ×2 (08:06→17:28)
[2017-10-03] MEDS: MAGNESIUM OXIDE 400 MG TABLET PO SCH ×2 (08:06→17:27)
[2017-10-03] MEDS: FERROUS SULFATE 324 MG TABLET PO SCH (08:06)
[2017-10-03] MEDS: DULOXETINE 20 MG CAPSULE PO SCH (08:07)
[2017-10-03] MEDS: LETROZOLE 2.5 MG TABLET PO SCH (08:07)
[2017-10-03] MEDS: AMLODIPINE 5 MG TABLET PO SCH (08:07)
[2017-10-03] MEDS: TRIAMCINOLONE 0.1% CREAM 15 G TUBE TOP SCH (08:08)
[2017-10-03] MEDS: LISINOPRIL 40 MG TABLET PO SCH (08:08)
[2017-10-03] MEDS: RisperiDONE 0.5 MG TABLET PO SCH (08:08)
--- NOTE | 2017-10-03 11:20 | Ultrasound Report ---
Indication: abdominal pain PROCEDURE: US abdomen complete: Encounter: Initial Comparison: None Technique: Grayscale and color Doppler sonographic imaging of the abdomen was performed. Findings: Hepatic parenchyma is echogenic without evidence for focal mass. The gallbladder evaluation is somewhat limited due to the partially contracted state. There is no gross wall thickening, pericholecystic fluid, sonographic Holland's sign or cholelithiasis. Both the intra and extrahepatic biliary system are of normal caliber with the common duct measuring 6 mm in dimension. Pancreas is not well seen due to shadowing bowel gas. Both kidneys are present without collecting system dilatation. The right measures 11.2 cm in length and left measures 11.5 cm. The spleen is at the upper limits of normal in size. The visualized portions of the aorta and IVC are unremarkable. No free fluid. Impression: Hepatic steatosis, otherwise negative exam. There is a preliminary report by [facility]. .
[2017-10-03] MEDS: ACETAMINOPHEN 325 MG TABLET PO PRN ×2 (11:47→23:31)
[2017-10-03] MEDS: SIMETHICONE 125 MG CAPSULE PO SCH ×3 (11:48→20:03)
[2017-10-03] MEDS: RisperiDONE 1 MG TABLET PO SCH (15:43)
[2017-10-03] MEDS: GUAIFENESIN 200mg/10ml ORAL LIQUID PO PRN (15:43)
--- NOTE | 2017-10-03 17:59 | Progress Note ---
- Date 10/03/17 Subjective: Patient is seen today sitting at the table. She states she has only had a mild amount of pain today. She is currently pain-free. She feels like she is having a lot of gas pain and has been started on simethicone for this. She is having regular bowel movements. Last bowel movement was this morning. Objective Vital signs: Temperature 97.6 F 10/03/17 15:27 Pulse Rate 80 10/03/17 15:27 Respiratory Rate 16 10/03/17 15:27 Blood Pressure 152/67 H 10/03/17 15:27 Pulse Oximetry 97 10/03/17 15:27 Height/Weight/BMI: Height 1.6 m Weight 92.3 kg Body Mass Index 35.7 - Constitutional Present: no acute distress, well nourished, well developed - Routine HEENT Exam Head: Present: normocephalic, atraumatic - Routine Respiratory Exam Absent: dyspnea, respiratory distress - Routine Abdominal Exam Present: soft, tenderness (mild right upper quadrant and epigastric), non distended, mass (she continues to have a firm, large mass in the epigastric region that is palpable.) - Routine Extremities Exam Present: no edema, normal capillary refill - Routine Skin Exam Present: dry, warm - Routine Neurological Exam Present: alert - Routine Lymphatic Exam Lymphatic: Absent: adenopathy - Routine Psychiatric Exam Present: normal affect, cooperative Results - Labs CBC & Chem 7: 10/03/17 07:27 10/02/17 18:04 Labs: Laboratory Tests 10/02/17 18:04 Total Bilirubin 0.40 Conjugated Bilirubin 0.00 Unconjugated Bilirubin 0.00 AST 36 ALT 42 Alkaline Phosphatase 132 H - Imaging and Cardiology US - abdomen Additional comments: Date of Exam: 10/02/17 Indication: abdominal pain PROCEDURE: US abdomen complete: Findings: Hepatic parenchyma is echogenic without evidence for focal mass. The gallbladder evaluation is somewhat limited due to the partially contracted state. There is no gross wall thickening, pericholecystic fluid, sonographic Holland's sign or cholelithiasis. Both the intra and extrahepatic biliary system are of normal caliber with the common duct measuring 6 mm in dimension. Pancreas is not well seen due to shadowing bowel gas. Both kidneys are present without collecting system dilatation. The right measures 11.2 cm in length and left measures 11.5 cm. The spleen is at the upper limits of normal in size. The visualized portions of the aorta and IVC are unremarkable. No free fluid. Impression: Hepatic steatosis, otherwise negative exam. Assessment and Plan (1) Acute psychosis Current visit: Yes Status: Acute Assessment and Plan: Assessment Acute abdominal pain - resolved Epigastric abdominal mass Delusions and increasing somatic complaints following recent lumpectomy Cough-? acute vs chronic vs acute on chronic Dry skin Dementia Hypertension Diabetes mellitus type 2 GERD Schizophrenia Bipolar disorder Overactive bladder Hyperlipidemia Rosacea Hypothyroidism Breast cancer Allergic rhinitis Plan Abdominal ultrasound was essentially negative other than hepatic steatosis. Labs are normal. She continues to have an obviously palpable mass in epigastric region, however, her pain has resolved and I don't believe her pain was related to this. She may have further workup on an outpatient basis. She's been started on simethicone for her gas pains. - Physician Narrative Narrative: Date: 10/03/17 Time: 1756 Hospital Course Summary Disclaimer: The visit summary below is not to be considered part of the above Progress Note. Hospital Course: 09/29/17 Hospitalist initial consultation: Agree with admission to [facility] for psych evaluation and management and to provide a safe environment. In regard to her cough, will order PRN cough drops and Robitussin. Monitor for fever or increasing symptoms. It sounds like this is a chronic problem for her. No evidence of obvious infection at this time. Continue metformin and insulin for blood sugar control. Based on a hemoglobin of 7.0 and her recent blood sugars all greater than 180, will increase her Lantus from 12 units to 15 units daily at bedtime. Continue Accu-Cheks. Cetaphil moisturizing lotion for dry skin daily with triamcinolone acetonide cream PRN itch. We will continue to manage patient medically throughout her stay. Thank you for the consult. 09/30/17 Psych: Pt is more alert today. She is pleasant and does not appear to be responding to internal stimuli. Continue current care 10/01/17 Hospitalist: Nurse's notes, psychiatric notes, labs and vitals reviewed Sugars are still elevated, increase Lantus to 17 units daily at bedtime. Continue Accu-Cheks. Patient appears medically stable. No other concerns at this time. 10/02/17 Psych: Will change timing of Risperdal to 0.5mg PO q AM and 1mg PO q 1600 to target sundowning; monitor behavior tonight - may need additional medication to target sundowning behaviors/irritability. 10/02/17 Hospitalist Check CBC, BMP, liver panel, UA, complete abdominal US for evaluation of her pain and hepatomegaly. At present, patient is comfortable and resting, no pain medication needed. Make NPO. Case discussed with Dr. Jewell. Treatment plan to be determined after US is resulted. 10/03/17 Hospitalist Abdominal ultrasound was essentially negative other than hepatic steatosis. Labs are normal. She continues to have an obviously palpable mass in epigastric region, however, her pain has resolved and I don't believe her pain was related to this, suspected it was related. She may have the mass worked up on an OP basis. She's been started on simethicone for her gas pains.
--- NOTE | 2017-10-03 19:33 | Neuropsych Progress Note ---
[facility] Subjective Date: 10/04/17 - Sujective/Severity of Illness Medications: Acetaminophen (Tylenol) 650 mg PO Q4H PRN PRN Reason: Pain Last Admin: 10/03/17 11:47 Dose: 650 mg Amlodipine Besylate (Norvasc) 5 mg PO DAILY [facility] Last Admin: 10/03/17 08:07 Dose: 5 mg Duloxetine HCl (Cymbalta) 20 mg PO DAILY [facility] Last Admin: 10/03/17 08:07 Dose: 20 mg Ferrous Sulfate (Feosol) 324 mg PO WB [facility] Last Admin: 10/03/17 08:06 Dose: 324 mg Guaifenesin (Robitussin Liq) 400 mg PO Q6H PRN PRN Reason: Cough /Congestion Last Admin: 10/03/17 15:43 Dose: 400 mg Haloperidol (Haldol) 0.5 mg PO Q6H PRN PRN Reason: Extreme agitation Last Admin: 10/02/17 21:59 Dose: 0.5 mg Haloperidol Lactate (Haldol) 0.5 mg IM Q6H PRN PRN Reason: Extreme agitation Insulin Glargine (Lantus) 15 unit SQ HS [facility] Last Admin: 10/02/17 21:02 Dose: 15 unit Letrozole (Femara) 2.5 mg PO DAILY [facility] Last Admin: 10/03/17 08:07 Dose: 2.5 mg Levothyroxine Sodium (Synthroid) 137 mcg PO ACB [facility] Last Admin: 10/03/17 06:21 Dose: 137 mcg Lisinopril (Prinivil) 40 mg PO DAILY [facility] Last Admin: 10/03/17 08:08 Dose: 40 mg Lorazepam (Ativan) 0.5 mg PO Q6H PRN PRN Reason: Extreme agitation Last Admin: 10/02/17 21:59 Dose: 0.5 mg Lorazepam (Ativan Inj) 0.5 mg IM Q6H PRN PRN Reason: Extreme agitation Magnesium Hydroxide (Mom) 30 ml PO DAILY PRN PRN Reason: Constipation Magnesium Oxide (Magox) 400 mg PO ACBID [facility] Last Admin: 10/03/17 17:27 Dose: 400 mg Menthol (Ricola Sf) 1 lozenge MM PRN PRN PRN Reason: Cough Last Admin: 10/03/17 06:44 Dose: 1 lozenge Metformin HCl (Glucophage) 1,000 mg PO BIDWM [facility] Last Admin: 10/03/17 17:28 Dose: 1,000 mg Nystatin (Mycostatin) 1 applic TP PRN PRN PRN Reason: iritation Last Admin: 10/02/17 22:01 Dose: 1 applic Oxybutynin Chloride (Ditropan) 10 mg PO HS [facility] Last Admin: 10/02/17 21:02 Dose: 10 mg Potassium Chloride (K-Dur 20 Meq Tablet) 20 meq PO TIDWM [facility] Last Admin: 10/03/17 17:28 Dose: 20 meq Risperidone (Risperdal) 1 mg PO 08,16 [facility] Simethicone (Phazyme) 125 mg PO Q6HR [facility] Last Admin: 10/03/17 15:43 Dose: 125 mg Tramadol HCl (Ultram) 25 mg PO QID PRN PRN Reason: Pain Last Admin: 10/01/17 20:59 Dose: 25 mg Triamcinolone Acetonide (Kenalog) 1 applic TOP DAILY [facility] Last Admin: 10/03/17 08:08 Dose: 1 applic Triamcinolone Acetonide (Kenalog) 1 applic TOP BID PRN PRN Reason: dry skin/itch Subjective: Patient seen and chart reviewed. Case discussed with treatment team. On interview, patient is quite pleasant and states her mood is "a little better " though she cannot say how. She says she knows she gets irritable with people and would like it if she didn't do that anymore. She denies SI or HI. She has complained of hearing voices in her head but says she knows they are imaginary - - however, she sometimes does what they say - for example, she might hear her or brother telling her what to do, so she throws good stuff away. She denies any hx of command hallucinations to harm anybody. However, staff feel that she is responding to more than she admits to and that they are more problematic than initially thought. Patient denies any adverse side effects related to psychotropic medications. Nursing staff report patient can be demanding and labile. Appears patient may be sundowning. PRN Haldol and Ativan were given PO at 2200 for restlessness. Patient has been adherent with medications. Patient slept only 2.75 hours overnight. VSS. Patient is eating well. Start Time: 14:40 Stop Time: 15:00 Mental Status Exam Vitals: Last Vital Signs Temp 97.6 F 10/03/17 15:27 Pulse 80 10/03/17 15:27 Resp 16 10/03/17 15:27 BP 152/67 H 10/03/17 15:27 Pulse Ox 97 10/03/17 15:27 Height: 1.6 m Weight: 92.3 kg - Mental Status Exam Muscle Strength/Tone: Normal Dressing: Casual Grooming: Fair Attitude: Cooperative Motor Activity: Retardation Eye Contact: Poor Speech: Slowed Volume: Soft Rhythm: Slurred Orientation: Oriented X4 Mood: Irritable Affect: Relaxed (during interview, more labile on unit) Rate of Thoughts: Delayed Thought Organization: [place] Associations: Intact Abstract Reasoning: Poor abstract reasoning Thought Content: Delusions, Somatic Concerns Perception/Psychotic: Psychotic Current Hallucinations: Auditory Language: Naming Impaired Fund of Knowledge: Poor fund of knowledge Memory: Poor-immediate, Poor-recent Suicidal Ideation: Denies Homicidal Ideation: Denies Insight: Poor Judgement: Poor Impulse Control: Poor - Laboratory Result Diagrams: 10/03/17 07:27 10/02/17 18:04 Laboratory Results - last 24 hr 10/02/17 10/03/17 20:55 07:27 WBC 5.6 RBC 4.05 Hgb 10.6 L Hct 33.9 L MCV 83.7 MCH 26.2 MCHC 31.3 RDW Std Deviation 45.6 Plt Count 191 MPV 9.6 Immature Gran % (Auto) 0.5 Neut % (Auto) 68.1 H Lymph % (Auto) 12.5 L [place] % (Auto) 11.6 H Eos % (Auto) 6.1 H Baso % (Auto) 1.2 Neut # (Auto) 3.8 Lymph # (Auto) 0.7 L [place] # (Auto) 0.7 Eos # (Auto) 0.3 Baso # (Auto) 0.1 Abs Immat Gran (auto) 0.03 Glucometer 130 Assessment and Plan (1) Unspecified schizophrenia, chronic condition with acute exacerbation Current visit: Yes Status: Acute Plan to increase Risperdal to 1mg PO BID; monitor mood, behavior and response. Hospital Course Summary Disclaimer: The visit summary below is not to be considered part of the above Progress Note. Hospital Course: 09/29/17 Hospitalist initial consultation: Agree with admission to [facility] for psych evaluation and management and to provide a safe environment. In regard to her cough, will order PRN cough drops and Robitussin. Monitor for fever or increasing symptoms. It sounds like this is a chronic problem for her. No evidence of obvious infection at this time. Continue metformin and insulin for blood sugar control. Based on a hemoglobin of 7.0 and her recent blood sugars all greater than 180, will increase her Lantus from 12 units to 15 units daily at bedtime. Continue Accu-Cheks. Cetaphil moisturizing lotion for dry skin daily with triamcinolone acetonide cream PRN itch. We will continue to manage patient medically throughout her stay. Thank you for the consult. 09/30/17 Psych: Pt is more alert today. She is pleasant and does not appear to be responding to internal stimuli. Continue current care 10/01/17 Hospitalist: Nurse's notes, psychiatric notes, labs and vitals reviewed Sugars are still elevated, increase Lantus to 17 units daily at bedtime. Continue Accu-Cheks. Patient appears medically stable. No other concerns at this time. 10/02/17 Psych: Will change timing of Risperdal to 0.5mg PO q AM and 1mg PO q 1600 to target sundowning; monitor behavior tonight - may need additional medication to target sundowning behaviors/irritability. 10/02/17 Hospitalist Check CBC, BMP, liver panel, UA, complete abdominal US for evaluation of her pain and hepatomegaly. At present, patient is comfortable and resting, no pain medication needed. Make NPO. Case discussed with Dr. Jewell. Treatment plan to be determined after US is resulted. 10/03/17 Hospitalist Abdominal ultrasound was essentially negative other than hepatic steatosis. Labs are normal. She continues to have an obviously palpable mass in epigastric region, however, her pain has resolved and I don't believe her pain was related to this, suspected it was related. She may have the mass worked up on an OP basis. She's been started on simethicone for her gas pains. 10/03/17 Psych: Plan to increase Risperdal to 1mg PO BID; monitor mood, behavior and response.
[2017-10-03] MEDS: INSULIN GLARGINE 100unit/ml INJECTION SQ SCH (20:10)
[2017-10-03] MEDS: TRAMADOL 50 MG TABLET PO PRN (21:28)
[2017-10-04] MEDS ORDERED: SIMETHICONE 125 MG CAPSULE PO PRN (08:31)
[2017-10-04] MEDS: FERROUS SULFATE 324 MG TABLET PO SCH (08:32)
[2017-10-04] MEDS: MAGNESIUM OXIDE 400 MG TABLET PO SCH ×2 (08:32→17:11)
[2017-10-04] MEDS: METFORMIN 1,000 MG TABLET PO SCH ×2 (08:32→17:12)
[2017-10-04] MEDS: LEVOTHYROXINE 137 MCG TABLET PO SCH (08:32)
[2017-10-04] MEDS: LETROZOLE 2.5 MG TABLET PO SCH (08:33)
[2017-10-04] MEDS: LISINOPRIL 40 MG TABLET PO SCH (08:33)
[2017-10-04] MEDS: DULOXETINE 20 MG CAPSULE PO SCH (08:33)
[2017-10-04] MEDS: AMLODIPINE 5 MG TABLET PO SCH (08:33)
[2017-10-04] MEDS: TRIAMCINOLONE 0.1% CREAM 15 G TUBE TOP SCH (08:33)
[2017-10-04] MEDS: RisperiDONE 1 MG TABLET PO SCH ×3 (08:33→20:01)
[2017-10-04] MEDS: MENTHOL COUGH DROPS (RICOLA) MM PRN (12:31)
[2017-10-04] MEDS: INSULIN GLARGINE 100unit/ml INJECTION SQ SCH (20:00)
[2017-10-04] MEDS: TRAMADOL 50 MG TABLET PO PRN (20:01)
[2017-10-04] MEDS: LORazepam 0.5 MG TABLET PO PRN (20:02)
--- NOTE | 2017-10-04 20:24 | Neuropsych Progress Note ---
[facility] Subjective Date: 10/04/17 - Sujective/Severity of Illness Medications: Acetaminophen (Tylenol) 650 mg PO Q4H PRN PRN Reason: Pain Last Admin: 10/03/17 23:31 Dose: 650 mg Amlodipine Besylate (Norvasc) 5 mg PO DAILY [facility] Last Admin: 10/04/17 08:33 Dose: 5 mg Duloxetine HCl (Cymbalta) 20 mg PO DAILY [facility] Last Admin: 10/04/17 08:33 Dose: 20 mg Ferrous Sulfate (Feosol) 324 mg PO WB [facility] Last Admin: 10/04/17 08:32 Dose: 324 mg Guaifenesin (Robitussin Liq) 400 mg PO Q6H PRN PRN Reason: Cough /Congestion Last Admin: 10/03/17 15:43 Dose: 400 mg Haloperidol (Haldol) 0.5 mg PO Q6H PRN PRN Reason: Extreme agitation Last Admin: 10/02/17 21:59 Dose: 0.5 mg Haloperidol Lactate (Haldol) 0.5 mg IM Q6H PRN PRN Reason: Extreme agitation Last Admin: 10/04/17 02:42 Dose: 0.5 mg Insulin Glargine (Lantus) 15 unit SQ HS [facility] Last Admin: 10/04/17 20:00 Dose: 15 unit Letrozole (Femara) 2.5 mg PO DAILY [facility] Last Admin: 10/04/17 08:33 Dose: 2.5 mg Levothyroxine Sodium (Synthroid) 137 mcg PO ACB [facility] Last Admin: 10/04/17 08:32 Dose: 137 mcg Lisinopril (Prinivil) 40 mg PO DAILY [facility] Last Admin: 10/04/17 08:33 Dose: 40 mg Lorazepam (Ativan) 0.5 mg PO Q6H PRN PRN Reason: Extreme agitation Last Admin: 10/04/17 20:02 Dose: 0.5 mg Lorazepam (Ativan Inj) 0.5 mg IM Q6H PRN PRN Reason: Extreme agitation Magnesium Hydroxide (Mom) 30 ml PO DAILY PRN PRN Reason: Constipation Magnesium Oxide (Magox) 400 mg PO ACBID [facility] Last Admin: 10/04/17 17:11 Dose: 400 mg Menthol (Ricola Sf) 1 lozenge MM PRN PRN PRN Reason: Cough Last Admin: 10/04/17 12:31 Dose: 1 lozenge Metformin HCl (Glucophage) 1,000 mg PO BIDWM [facility] Last Admin: 10/04/17 17:12 Dose: 1,000 mg Nystatin (Mycostatin) 1 applic TP PRN PRN PRN Reason: iritation Last Admin: 10/02/17 22:01 Dose: 1 applic Oxybutynin Chloride (Ditropan) 10 mg PO HS [facility] Last Admin: 10/04/17 20:02 Dose: 10 mg Potassium Chloride (K-Dur 20 Meq Tablet) 20 meq PO TIDWM [facility] Last Admin: 10/04/17 17:12 Dose: 20 meq Risperidone (Risperdal) 1 mg PO 08,16 [facility] Last Admin: 10/04/17 17:11 Dose: 1 mg Risperidone (Risperdal) 1 mg PO 21 [facility] Last Admin: 10/04/17 20:01 Dose: 1 mg Simethicone (Phazyme) 125 mg PO Q6HR PRN Tramadol HCl (Ultram) 25 mg PO QID PRN PRN Reason: Pain Last Admin: 10/04/17 20:01 Dose: 25 mg Triamcinolone Acetonide (Kenalog) 1 applic TOP DAILY [facility] Last Admin: 10/04/17 08:33 Dose: 1 applic Triamcinolone Acetonide (Kenalog) 1 applic TOP BID PRN PRN Reason: dry skin/itch Subjective: Patient seen and chart reviewed. Case discussed with treatment team. On interview, patient states that her mood is irritable and she doesn't know why. She is irritated with the SW for encouraging her to participate in group. She tries to be polite and even tells the SW this then apologizes as she doesn' t want to hurt her feelings. She is more delusional today, telling me that she may be constipated or "there may be stuff shoved up there... like a toothbrush. " She does endorse having AH, not saying anything specific - just talking. Patient denies any adverse side effects related to psychotropic medications. Nursing staff report patient can be demanding and labile. Appears patient may be sundowning. PRN Haldol 0.5mg IM was given at 0242 for paranoia and voices. She yelled "help me, help me" repeatedly at times yesterday. Patient has been adherent with medications. Patient slept only 1.25 hours overnight. VSS. Patient is eating well. Patient does say she was supposed to be wearing O2 at night - will order an overnight oximetry. Start Time: 14:40 Stop Time: 15:00 Mental Status Exam Vitals: Last Vital Signs Temp 97.8 F 10/04/17 19:44 Pulse 80 10/04/17 19:44 Resp 18 10/04/17 19:44 BP 166/67 H 10/04/17 19:44 Pulse Ox 95 10/04/17 19:44 Height: 1.6 m Weight: 92.3 kg - Mental Status Exam Muscle Strength/Tone: Normal Dressing: Casual Grooming: Fair Attitude: Cooperative Motor Activity: Retardation Eye Contact: Poor Speech: Slowed Volume: Soft Rhythm: Slurred Orientation: Oriented X4 Mood: Irritable Affect: Relaxed (during interview, labile at times with staff) Rate of Thoughts: Delayed Thought Organization: [place] Associations: Intact Abstract Reasoning: Poor abstract reasoning Thought Content: Delusions, Somatic Concerns Perception/Psychotic: Psychotic Current Hallucinations: Auditory Language: Naming Impaired Fund of Knowledge: Poor fund of knowledge Memory: Poor-immediate, Poor-recent Suicidal Ideation: Denies Homicidal Ideation: Denies Insight: Poor Judgement: Poor Impulse Control: Poor - Laboratory Result Diagrams: 10/03/17 07:27 10/02/17 18:04 Laboratory Results - last 24 hr 10/04/17 10/04/17 06:34 19:56 Glucometer 161 226 Assessment and Plan (1) Unspecified schizophrenia, chronic condition with acute exacerbation Current visit: Yes Status: Acute Will increase Risperdal to 1mg PO TID to see if this helps with psychosis/ delusions, or if it may be contributing to restlessness. May consider addition of Depakote, whether patient may in fact have schizoaffective disorder, bipolar type. Will also request overnight oximetry. Hospital Course Summary Disclaimer: The visit summary below is not to be considered part of the above Progress Note. Hospital Course: 09/29/17 Hospitalist initial consultation: Agree with admission to [facility] for psych evaluation and management and to provide a safe environment. In regard to her cough, will order PRN cough drops and Robitussin. Monitor for fever or increasing symptoms. It sounds like this is a chronic problem for her. No evidence of obvious infection at this time. Continue metformin and insulin for blood sugar control. Based on a hemoglobin of 7.0 and her recent blood sugars all greater than 180, will increase her Lantus from 12 units to 15 units daily at bedtime. Continue Accu-Cheks. Cetaphil moisturizing lotion for dry skin daily with triamcinolone acetonide cream PRN itch. We will continue to manage patient medically throughout her stay. Thank you for the consult. 09/30/17 Psych: Pt is more alert today. She is pleasant and does not appear to be responding to internal stimuli. Continue current care 10/01/17 Hospitalist: Nurse's notes, psychiatric notes, labs and vitals reviewed Sugars are still elevated, increase Lantus to 17 units daily at bedtime. Continue Accu-Cheks. Patient appears medically stable. No other concerns at this time. 10/02/17 Psych: Will change timing of Risperdal to 0.5mg PO q AM and 1mg PO q 1600 to target sundowning; monitor behavior tonight - may need additional medication to target sundowning behaviors/irritability. 10/02/17 Hospitalist Check CBC, BMP, liver panel, UA, complete abdominal US for evaluation of her pain and hepatomegaly. At present, patient is comfortable and resting, no pain medication needed. Make NPO. Case discussed with Dr. Jewell. Treatment plan to be determined after US is resulted. 10/03/17 Hospitalist Abdominal ultrasound was essentially negative other than hepatic steatosis. Labs are normal. She continues to have an obviously palpable mass in epigastric region, however, her pain has resolved and I don't believe her pain was related to this, suspected it was related. She may have the mass worked up on an OP basis. She's been started on simethicone for her gas pains. 10/03/17 Psych: Plan to increase Risperdal to 1mg PO BID; monitor mood, behavior and response. 10/04/17 Psych: Will increase Risperdal to 1mg PO TID to see if this helps with psychosis/delusions, or if it may be contributing to restlessness. May consider addition of Depakote, whether patient may in fact have schizoaffective disorder , bipolar type. Will also request overnight oximetry.
[2017-10-05] MEDS: MENTHOL COUGH DROPS (RICOLA) MM PRN ×2 (05:55→23:58)
[2017-10-05] MEDS: MAGNESIUM OXIDE 400 MG TABLET PO SCH ×2 (05:55→16:38)
[2017-10-05] MEDS: LEVOTHYROXINE 137 MCG TABLET PO SCH (05:55)
[2017-10-05] MEDS: TRAMADOL 50 MG TABLET PO PRN (05:56)
[2017-10-05] MEDS: LISINOPRIL 40 MG TABLET PO SCH (08:24)
[2017-10-05] MEDS: AMLODIPINE 5 MG TABLET PO SCH (08:24)
[2017-10-05] MEDS: RisperiDONE 1 MG TABLET PO SCH ×3 (08:24→20:00)
[2017-10-05] MEDS: METFORMIN 1,000 MG TABLET PO SCH ×2 (08:24→16:38)
[2017-10-05] MEDS: LETROZOLE 2.5 MG TABLET PO SCH (08:24)
[2017-10-05] MEDS: TRIAMCINOLONE 0.1% CREAM 15 G TUBE TOP SCH (08:25)
[2017-10-05] MEDS: DULOXETINE 20 MG CAPSULE PO SCH (08:25)
[2017-10-05] MEDS: FERROUS SULFATE 324 MG TABLET PO SCH (08:30)
--- NOTE | 2017-10-05 14:05 | Neuropsych Progress Note ---
[facility] Subjective Date: 10/05/17 - Sujective/Severity of Illness Medications: Acetaminophen (Tylenol) 650 mg PO Q4H PRN PRN Reason: Pain Last Admin: 10/03/17 23:31 Dose: 650 mg Amlodipine Besylate (Norvasc) 5 mg PO DAILY [facility] Last Admin: 10/05/17 08:24 Dose: 5 mg Duloxetine HCl (Cymbalta) 20 mg PO DAILY [facility] Last Admin: 10/05/17 08:25 Dose: 20 mg Ferrous Sulfate (Feosol) 324 mg PO WB [facility] Last Admin: 10/05/17 08:30 Dose: 324 mg Guaifenesin (Robitussin Liq) 400 mg PO Q6H PRN PRN Reason: Cough /Congestion Last Admin: 10/03/17 15:43 Dose: 400 mg Haloperidol (Haldol) 0.5 mg PO Q6H PRN PRN Reason: Extreme agitation Last Admin: 10/02/17 21:59 Dose: 0.5 mg Haloperidol Lactate (Haldol) 0.5 mg IM Q6H PRN PRN Reason: Extreme agitation Last Admin: 10/04/17 02:42 Dose: 0.5 mg Insulin Glargine (Lantus) 15 unit SQ HS [facility] Last Admin: 10/04/17 20:00 Dose: 15 unit Letrozole (Femara) 2.5 mg PO DAILY [facility] Last Admin: 10/05/17 08:24 Dose: 2.5 mg Levothyroxine Sodium (Synthroid) 137 mcg PO ACB [facility] Last Admin: 10/05/17 05:55 Dose: 137 mcg Lisinopril (Prinivil) 40 mg PO DAILY [facility] Last Admin: 10/05/17 08:24 Dose: 40 mg Lorazepam (Ativan) 0.5 mg PO Q6H PRN PRN Reason: Extreme agitation Last Admin: 10/04/17 20:02 Dose: 0.5 mg Lorazepam (Ativan Inj) 0.5 mg IM Q6H PRN PRN Reason: Extreme agitation Magnesium Hydroxide (Mom) 30 ml PO DAILY PRN PRN Reason: Constipation Magnesium Oxide (Magox) 400 mg PO ACBID [facility] Last Admin: 10/05/17 05:55 Dose: 400 mg Menthol (Ricola Sf) 1 lozenge MM PRN PRN PRN Reason: Cough Last Admin: 10/05/17 05:55 Dose: 1 lozenge Metformin HCl (Glucophage) 1,000 mg PO BIDWM [facility] Last Admin: 10/05/17 08:24 Dose: 1,000 mg Nystatin (Mycostatin) 1 applic TP PRN PRN PRN Reason: iritation Last Admin: 10/02/17 22:01 Dose: 1 applic Oxybutynin Chloride (Ditropan) 10 mg PO HS [facility] Last Admin: 10/04/17 20:02 Dose: 10 mg Potassium Chloride (K-Dur 20 Meq Tablet) 20 meq PO TIDWM [facility] Last Admin: 10/05/17 11:58 Dose: 20 meq Risperidone (Risperdal) 1 mg PO 08,16 [facility] Last Admin: 10/05/17 08:24 Dose: 1 mg Risperidone (Risperdal) 1 mg PO 21 [facility] Last Admin: 10/04/17 20:01 Dose: 1 mg Simethicone (Phazyme) 125 mg PO Q6HR PRN Tramadol HCl (Ultram) 25 mg PO QID PRN PRN Reason: Pain Last Admin: 10/05/17 05:56 Dose: 25 mg Triamcinolone Acetonide (Kenalog) 1 applic TOP DAILY [facility] Last Admin: 10/05/17 08:25 Dose: 1 applic Triamcinolone Acetonide (Kenalog) 1 applic TOP BID PRN PRN Reason: dry skin/itch Subjective: Patient seen and chart reviewed. Case discussed with treatment team. On interview, patient states that her mood is less irritable and the voices are less bothersome than they previously were since increasing Risperdal. She denies SI, HI, VH. Patient denies any adverse side effects related to psychotropic medications. Nursing staff report patient prefers to isolate to her room and seemed anxious yesterday, but did not have any significant behavioral difficulties. It appeared as though she was responding to internal stimuli when attempting to participate in group. Patient has been adherent with medications. Patient slept 6.25 hours overnight. VSS. Patient is eating well. Overnight oximetry completed last night - will defer to hospitalist in regards to whether nighttime O2 may be beneficial (patient states she was on it previously at facility). Start Time: 10:20 Stop Time: 10:40 Mental Status Exam Vitals: Last Vital Signs Temp 97.0 F 10/05/17 08:00 Pulse 101 H 10/05/17 08:00 Resp 20 10/05/17 08:00 BP 150/65 H 10/05/17 08:00 Pulse Ox 93 10/05/17 08:00 Height: 1.6 m Weight: 92.3 kg - Mental Status Exam Muscle Strength/Tone: Normal Dressing: Casual Grooming: Fair Attitude: Cooperative Motor Activity: Retardation Eye Contact: Poor Speech: Slowed Volume: Soft Rhythm: Slurred Orientation: Oriented X4 Mood: Neutral Affect: Blunted Rate of Thoughts: Delayed Thought Organization: [place] Associations: Intact Abstract Reasoning: Poor abstract reasoning Thought Content: Delusions (decreased from yesterday), Somatic Concerns Perception/Psychotic: Psychotic Current Hallucinations: Auditory (decreasing per patient report) Language: Naming Impaired Fund of Knowledge: Poor fund of knowledge Memory: Poor-immediate, Poor-recent Suicidal Ideation: Denies Homicidal Ideation: Denies Insight: Poor Judgement: Poor Impulse Control: Fair - Laboratory Result Diagrams: 10/03/17 07:27 10/02/17 18:04 Laboratory Results - last 24 hr 10/04/17 19:56 Glucometer 226 Assessment and Plan (1) Unspecified schizophrenia, chronic condition with acute exacerbation Problem details: Other medical conditions: Acute abdominal pain - resolved Epigastric abdominal mass Delusions and increasing somatic complaints following recent lumpectomy Cough-? acute vs chronic vs acute on chronic Dry skin Dementia Hypertension Diabetes mellitus type 2 GERD Overactive bladder Hyperlipidemia Rosacea Hypothyroidism Breast cancer Allergic rhinitis Current visit: Yes Status: Acute Continue current care and monitor mood, behavior and response to treatment since increasing Risperdal on 10/04. Hospital Course Summary Disclaimer: The visit summary below is not to be considered part of the above Progress Note. Hospital Course: 09/29/17 Hospitalist initial consultation: Agree with admission to [facility] for psych evaluation and management and to provide a safe environment. In regard to her cough, will order PRN cough drops and Robitussin. Monitor for fever or increasing symptoms. It sounds like this is a chronic problem for her. No evidence of obvious infection at this time. Continue metformin and insulin for blood sugar control. Based on a hemoglobin of 7.0 and her recent blood sugars all greater than 180, will increase her Lantus from 12 units to 15 units daily at bedtime. Continue Accu-Cheks. Cetaphil moisturizing lotion for dry skin daily with triamcinolone acetonide cream PRN itch. We will continue to manage patient medically throughout her stay. Thank you for the consult. 09/30/17 Psych: Pt is more alert today. She is pleasant and does not appear to be responding to internal stimuli. Continue current care 10/01/17 Hospitalist: Nurse's notes, psychiatric notes, labs and vitals reviewed Sugars are still elevated, increase Lantus to 17 units daily at bedtime. Continue Accu-Cheks. Patient appears medically stable. No other concerns at this time. 10/02/17 Psych: Will change timing of Risperdal to 0.5mg PO q AM and 1mg PO q 1600 to target sundowning; monitor behavior tonight - may need additional medication to target sundowning behaviors/irritability. 10/02/17 Hospitalist Check CBC, BMP, liver panel, UA, complete abdominal US for evaluation of her pain and hepatomegaly. At present, patient is comfortable and resting, no pain medication needed. Make NPO. Case discussed with Dr. Jewell. Treatment plan to be determined after US is resulted. 10/03/17 Hospitalist Abdominal ultrasound was essentially negative other than hepatic steatosis. Labs are normal. She continues to have an obviously palpable mass in epigastric region, however, her pain has resolved and I don't believe her pain was related to this, suspected it was related. She may have the mass worked up on an OP basis. She's been started on simethicone for her gas pains. 10/03/17 Psych: Plan to increase Risperdal to 1mg PO BID; monitor mood, behavior and response. 10/04/17 Psych: Will increase Risperdal to 1mg PO TID to see if this helps with psychosis/delusions, or if it may be contributing to restlessness. May consider addition of Depakote, whether patient may in fact have schizoaffective disorder , bipolar type. Will also request overnight oximetry.
--- NOTE | 2017-10-05 17:20 | Progress Note ---
- Date 10/05/17 Subjective: Savanan is seen today while sitting in the dayroom, watching TV. She denies any complaints or concerns including no chest pain, shortness of breath, abdominal pain, nausea, vomiting or dysuria. Nursing reports that overall, she has been doing well but continues to be restless at times. Dr. Waters expressed concern about possible sleep apnea and requested over night oximetry for further evaluation which was ordered. Her appetite has been stable and bowels are moving. Blood pressure has been elevated with average systolic pressure at 150. Blood sugars remain variable and elevated. Objective Vital signs: Temperature 97.0 F 10/05/17 08:00 Pulse Rate 101 H 10/05/17 08:00 Respiratory Rate 20 10/05/17 08:00 Blood Pressure 150/65 H 10/05/17 08:00 Pulse Oximetry 93 10/05/17 08:00 Height/Weight/BMI: Height 5 ft 3 in Weight 203 lb 7.787 oz Body Mass Index 35.7 Comments: sitting in day room, watching TV. - Constitutional Present: no acute distress, well nourished, well developed, morbidly obese, cooperative - Routine HEENT Exam Head: Present: normocephalic, atraumatic Eye: Present: PERRL. Absent: conjunctival icterus ENT: Present: mucous membranes moist - Routine Respiratory Exam Present: CTA bilaterally. Absent: rales, rhonchi, stridor, wheezes - Routine Cardiovascular Exam Present: RRR, S1, S2, murmur - Routine Abdominal Exam Present: soft, normoactive bowel sounds, non distended, non tender. Absent: rebound, guarding Comments: obese - Routine Extremities Exam Present: edema (trace), non tender, full ROM, pulses intact - Routine Back/Spine/Pelvis Exam Back/Spine: Present: full ROM. Absent: vertebral tenderness - Routine Skin Exam Present: dry, warm. Absent: jaundice Comments: afebrile - Routine Neurological Exam Present: alert, moving all extremities, normal speech. Absent: facial asymmetry - Routine Lymphatic Exam Lymphatic: Absent: lymphedema - Routine Psychiatric Exam Present: cooperative Results - Labs CBC & Chem 7: 10/03/17 07:27 10/02/17 18:04 Assessment and Plan (1) Acute psychosis Current visit: Yes Status: Acute Assessment and Plan: Assessment Acute abdominal pain - resolved Epigastric abdominal mass Delusions and increasing somatic complaints following recent lumpectomy Cough-? acute vs chronic vs acute on chronic Dry skin Dementia Hypertension Diabetes mellitus type 2 GERD Schizophrenia Bipolar disorder Overactive bladder Hyperlipidemia Rosacea Hypothyroidism Breast cancer Allergic rhinitis Plan - 10/05/17. Savanna continues to have episodes of restlessness. Continue psychiatric care per Dr. Waters. Continue to provide safe and supportive environment. She denies any acute pain or concerns on exam. Appetite is stable and bowels are moving. Blood pressure noted to be elevated with average systolic pressure around 150. Will increase Norvasc to 10mg daily and continue to monitor blood pressure closely. Blood sugars remain elevated and variable. Extensive review of BGM trends was done. Will increase Lantus to 18 units QHS and continue to monitor closely. Continue home metformin and sliding scale insulin as indicated. Dr. Waters expressed concern for sleep apnea. Will obtain night oximetry tonight for results to be reviewed tomorrow. Continue care plan. Resuscitation Status: Full Code - Time spent with patient Time with patient PN: 25 minutes - Physician Narrative Physician: Femi Jweell MD Narrative: Date: 10/05/17 Time: 1713 Hospital Course Summary Disclaimer: The visit summary below is not to be considered part of the above Progress Note. Hospital Course: 09/29/17 Hospitalist initial consultation: Agree with admission to [facility] for psych evaluation and management and to provide a safe environment. In regard to her cough, will order PRN cough drops and Robitussin. Monitor for fever or increasing symptoms. It sounds like this is a chronic problem for her. No evidence of obvious infection at this time. Continue metformin and insulin for blood sugar control. Based on a hemoglobin of 7.0 and her recent blood sugars all greater than 180, will increase her Lantus from 12 units to 15 units daily at bedtime. Continue Accu-Cheks. Cetaphil moisturizing lotion for dry skin daily with triamcinolone acetonide cream PRN itch. We will continue to manage patient medically throughout her stay. Thank you for the consult. 09/30/17 Psych: Pt is more alert today. She is pleasant and does not appear to be responding to internal stimuli. Continue current care 10/01/17 Hospitalist: Nurse's notes, psychiatric notes, labs and vitals reviewed Sugars are still elevated, increase Lantus to 17 units daily at bedtime. Continue Accu-Cheks. Patient appears medically stable. No other concerns at this time. 10/02/17 Psych: Will change timing of Risperdal to 0.5mg PO q AM and 1mg PO q 1600 to target sundowning; monitor behavior tonight - may need additional medication to target sundowning behaviors/irritability. 10/02/17 Hospitalist Check CBC, BMP, liver panel, UA, complete abdominal US for evaluation of her pain and hepatomegaly. At present, patient is comfortable and resting, no pain medication needed. Make NPO. Case discussed with Dr. Jewell. Treatment plan to be determined after US is resulted. 10/03/17 Hospitalist Abdominal ultrasound was essentially negative other than hepatic steatosis. Labs are normal. She continues to have an obviously palpable mass in epigastric region, however, her pain has resolved and I don't believe her pain was related to this, suspected it was related. She may have the mass worked up on an OP basis. She's been started on simethicone for her gas pains. 10/03/17 Psych: Plan to increase Risperdal to 1mg PO BID; monitor mood, behavior and response. 10/04/17 Psych: Will increase Risperdal to 1mg PO TID to see if this helps with psychosis/delusions, or if it may be contributing to restlessness. May consider addition of Depakote, whether patient may in fact have schizoaffective disorder , bipolar type. Will also request overnight oximetry. Plan - 10/05/17. Savanna continues to have episodes of restlessness. Continue psychiatric care per Dr. Waters. Continue to provide safe and supportive environment. She denies any acute pain or concerns on exam. Appetite is stable and bowels are moving. Blood pressure noted to be elevated with average systolic pressure around 150. Will increase Norvasc to 10mg daily and continue to monitor blood pressure closely. Blood sugars remain elevated and variable. Extensive review of BGM trends was done. Will increase Lantus to 18 units QHS and continue to monitor closely. Continue home metformin and sliding scale insulin as indicated. Dr. Waters expressed concern for sleep apnea. Will obtain night oximetry tonight for results to be reviewed tomorrow. Continue care plan.
[2017-10-05] MEDS: INSULIN GLARGINE 100unit/ml INJECTION SQ SCH (20:00)
[2017-10-05] MEDS: HALOPERIDOL 0.5 MG TABLET PO PRN (23:59)
[2017-10-05] MEDS: LORazepam 0.5 MG TABLET PO PRN (23:59)
[2017-10-06] MEDS: LEVOTHYROXINE 137 MCG TABLET PO SCH (05:37)
[2017-10-06] MEDS: MAGNESIUM OXIDE 400 MG TABLET PO SCH ×2 (05:37→17:07)
[2017-10-06] MEDS: TRIAMCINOLONE 0.1% CREAM 15 G TUBE TOP SCH (08:06)
[2017-10-06] MEDS: METFORMIN 1,000 MG TABLET PO SCH ×2 (08:07→17:07)
[2017-10-06] MEDS: LISINOPRIL 40 MG TABLET PO SCH (08:07)
[2017-10-06] MEDS: DULOXETINE 20 MG CAPSULE PO SCH (08:07)
[2017-10-06] MEDS: LETROZOLE 2.5 MG TABLET PO SCH (08:07)
[2017-10-06] MEDS: AMLODIPINE 10 MG TABLET PO SCH (08:07)
[2017-10-06] MEDS: FERROUS SULFATE 324 MG TABLET PO SCH (08:07)
[2017-10-06] MEDS: RisperiDONE 1 MG TABLET PO SCH ×4 (08:07→20:44)
--- NOTE | 2017-10-06 10:27 | Neuropsych Progress Note ---
[facility] Subjective Date: 10/06/17 - Sujective/Severity of Illness Medications: Acetaminophen (Tylenol) 650 mg PO Q4H PRN PRN Reason: Pain Last Admin: 10/03/17 23:31 Dose: 650 mg Amlodipine Besylate (Norvasc) 10 mg PO DAILY [facility] Last Admin: 10/06/17 08:07 Dose: 10 mg Duloxetine HCl (Cymbalta) 20 mg PO DAILY [facility] Last Admin: 10/06/17 08:07 Dose: 20 mg Ferrous Sulfate (Feosol) 324 mg PO WB [facility] Last Admin: 10/06/17 08:07 Dose: 324 mg Guaifenesin (Robitussin Liq) 400 mg PO Q6H PRN PRN Reason: Cough /Congestion Last Admin: 10/03/17 15:43 Dose: 400 mg Haloperidol (Haldol) 0.5 mg PO Q6H PRN PRN Reason: Extreme agitation Last Admin: 10/05/17 23:59 Dose: 0.5 mg Haloperidol Lactate (Haldol) 0.5 mg IM Q6H PRN PRN Reason: Extreme agitation Last Admin: 10/04/17 02:42 Dose: 0.5 mg Insulin Aspart (Novolog) 1 - 5 unit SQ SS PRN; Protocol PRN Reason: Hyperglycemia Insulin Glargine (Lantus) 18 unit SQ HS [facility] Last Admin: 10/05/17 20:00 Dose: 18 unit Letrozole (Femara) 2.5 mg PO DAILY [facility] Last Admin: 10/06/17 08:07 Dose: 2.5 mg Levothyroxine Sodium (Synthroid) 137 mcg PO ACB [facility] Last Admin: 10/06/17 05:37 Dose: 137 mcg Lisinopril (Prinivil) 40 mg PO DAILY [facility] Last Admin: 10/06/17 08:07 Dose: 40 mg Lorazepam (Ativan) 0.5 mg PO Q6H PRN PRN Reason: Extreme agitation Last Admin: 10/05/17 23:59 Dose: 0.5 mg Lorazepam (Ativan Inj) 0.5 mg IM Q6H PRN PRN Reason: Extreme agitation Magnesium Hydroxide (Mom) 30 ml PO DAILY PRN PRN Reason: Constipation Magnesium Oxide (Magox) 400 mg PO ACBID [facility] Last Admin: 10/06/17 05:37 Dose: 400 mg Menthol (Ricola Sf) 1 lozenge MM PRN PRN PRN Reason: Cough Last Admin: 10/05/17 23:58 Dose: 1 lozenge Metformin HCl (Glucophage) 1,000 mg PO BIDWM [facility] Last Admin: 10/06/17 08:07 Dose: 1,000 mg Nystatin (Mycostatin) 1 applic TP PRN PRN PRN Reason: iritation Last Admin: 10/02/17 22:01 Dose: 1 applic Oxybutynin Chloride (Ditropan) 10 mg PO HS [facility] Last Admin: 10/05/17 20:00 Dose: 10 mg Potassium Chloride (K-Dur 20 Meq Tablet) 20 meq PO TIDWM [facility] Last Admin: 10/06/17 08:07 Dose: 20 meq Risperidone (Risperdal) 1 mg PO 08,16 [facility] Last Admin: 10/06/17 08:07 Dose: 1 mg Risperidone (Risperdal) 1 mg PO 21 [facility] Last Admin: 10/05/17 20:00 Dose: 1 mg Simethicone (Phazyme) 125 mg PO Q6HR PRN Tramadol HCl (Ultram) 25 mg PO QID PRN PRN Reason: Pain Last Admin: 10/05/17 05:56 Dose: 25 mg Triamcinolone Acetonide (Kenalog) 1 applic TOP DAILY [facility] Last Admin: 10/06/17 08:06 Dose: 1 applic Triamcinolone Acetonide (Kenalog) 1 applic TOP BID PRN PRN Reason: dry skin/itch Subjective: Patient seen and chart reviewed. Nursing reports pt had some issues with sleep and was given Haldol and Ativan. Pt is eating well and no behaviors noted. On face to face the pt is pleasant. 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 She reports she is doing well. Mood is stable. Denies psychotic symptoms. Voices no concerns at this time Start Time: 09:30 Stop Time: 09:45 Mental Status Exam Vitals: Last Vital Signs Temp 98.4 F 10/05/17 19:52 Pulse 74 10/05/17 19:52 Resp 20 10/05/17 19:52 BP 152/61 H 10/05/17 19:52 Pulse Ox 91 10/05/17 19:52 Height: 1.6 m Weight: 92.3 kg - Mental Status Exam Muscle Strength/Tone: Normal Dressing: Casual Grooming: Fair Attitude: Cooperative Motor Activity: Retardation Eye Contact: Poor Speech: Slowed Volume: Soft Rhythm: Slurred Orientation: Oriented X4 Mood: Neutral Rate of Thoughts: Delayed Thought Organization: [place] Associations: Intact Abstract Reasoning: Poor abstract reasoning Thought Content: Delusions (decreased from yesterday), Somatic Concerns Perception/Psychotic: Psychotic Current Hallucinations: Auditory (decreasing per patient report) Language: Naming Impaired Fund of Knowledge: Poor fund of knowledge Memory: Poor-immediate, Poor-recent Suicidal Ideation: Denies Homicidal Ideation: Denies Insight: Poor Judgement: Poor Impulse Control: Fair - Laboratory Result Diagrams: 10/03/17 07:27 10/02/17 18:04 Laboratory Results - last 24 hr 10/05/17 21:52 Glucometer 172 Assessment and Plan (1) Unspecified schizophrenia, chronic condition with acute exacerbation Problem details: Other medical conditions: Acute abdominal pain - resolved Epigastric abdominal mass Delusions and increasing somatic complaints following recent lumpectomy Cough-? acute vs chronic vs acute on chronic Dry skin Dementia Hypertension Diabetes mellitus type 2 GERD Overactive bladder Hyperlipidemia Rosacea Hypothyroidism Breast cancer Allergic rhinitis Current visit: Yes Status: Acute Hospital Course Summary Disclaimer: The visit summary below is not to be considered part of the above Progress Note. Hospital Course: 09/29/17 Hospitalist initial consultation: Agree with admission to [facility] for psych evaluation and management and to provide a safe environment. In regard to her cough, will order PRN cough drops and Robitussin. Monitor for fever or increasing symptoms. It sounds like this is a chronic problem for her. No evidence of obvious infection at this time. Continue metformin and insulin for blood sugar control. Based on a hemoglobin of 7.0 and her recent blood sugars all greater than 180, will increase her Lantus from 12 units to 15 units daily at bedtime. Continue Accu-Cheks. Cetaphil moisturizing lotion for dry skin daily with triamcinolone acetonide cream PRN itch. We will continue to manage patient medically throughout her stay. Thank you for the consult. 09/30/17 Psych: Pt is more alert today. She is pleasant and does not appear to be responding to internal stimuli. Continue current care 10/01/17 Hospitalist: Nurse's notes, psychiatric notes, labs and vitals reviewed Sugars are still elevated, increase Lantus to 17 units daily at bedtime. Continue Accu-Cheks. Patient appears medically stable. No other concerns at this time. 10/02/17 Psych: Will change timing of Risperdal to 0.5mg PO q AM and 1mg PO q 1600 to target sundowning; monitor behavior tonight - may need additional medication to target sundowning behaviors/irritability. 10/02/17 Hospitalist Check CBC, BMP, liver panel, UA, complete abdominal US for evaluation of her pain and hepatomegaly. At present, patient is comfortable and resting, no pain medication needed. Make NPO. Case discussed with Dr. Jewell. Treatment plan to be determined after US is resulted. 10/03/17 Hospitalist Abdominal ultrasound was essentially negative other than hepatic steatosis. Labs are normal. She continues to have an obviously palpable mass in epigastric region, however, her pain has resolved and I don't believe her pain was related to this, suspected it was related. She may have the mass worked up on an OP basis. She's been started on simethicone for her gas pains. 10/03/17 Psych: Plan to increase Risperdal to 1mg PO BID; monitor mood, behavior and response. 10/04/17 Psych: Will increase Risperdal to 1mg PO TID to see if this helps with psychosis/delusions, or if it may be contributing to restlessness. May consider addition of Depakote, whether patient may in fact have schizoaffective disorder , bipolar type. Will also request overnight oximetry. Plan - 10/05/17. Savanna continues to have episodes of restlessness. Continue psychiatric care per Dr. Waters. Continue to provide safe and supportive environment. She denies any acute pain or concerns on exam. Appetite is stable and bowels are moving. Blood pressure noted to be elevated with average systolic pressure around 150. Will increase Norvasc to 10mg daily and continue to monitor blood pressure closely. Blood sugars remain elevated and variable. Extensive review of BGM trends was done. Will increase Lantus to 18 units QHS and continue to monitor closely. Continue home metformin and sliding scale insulin as indicated. Dr. Waters expressed concern for sleep apnea. Will obtain night oximetry tonight for results to be reviewed tomorrow. Continue care plan. 10/06/17- Psych- SOme issues with sleep but no behaviors. Continue current care
[2017-10-06] MEDS: MENTHOL COUGH DROPS (RICOLA) MM PRN ×2 (10:38→15:46)
[2017-10-06] MEDS: GUAIFENESIN 200mg/10ml ORAL LIQUID PO PRN ×2 (10:38→22:17)
[2017-10-06] MEDS: TRAMADOL 50 MG TABLET PO PRN (15:41)
[2017-10-06] MEDS: INSULIN ASPART 100unit/ml INJECTION SQ PRN (20:12)
[2017-10-06] MEDS: INSULIN GLARGINE 100unit/ml INJECTION SQ SCH (20:12)
[2017-10-07] MEDS: TRAMADOL 50 MG TABLET PO PRN ×2 (00:57→18:31)
[2017-10-07] MEDS: LEVOTHYROXINE 137 MCG TABLET PO SCH (06:42)
[2017-10-07] MEDS: MAGNESIUM OXIDE 400 MG TABLET PO SCH ×2 (06:43→17:11)
[2017-10-07] MEDS: METFORMIN 1,000 MG TABLET PO SCH ×2 (09:08→17:10)
[2017-10-07] MEDS: AMLODIPINE 10 MG TABLET PO SCH (09:09)
[2017-10-07] MEDS: DULOXETINE 20 MG CAPSULE PO SCH (09:09)
[2017-10-07] MEDS: TRIAMCINOLONE 0.1% CREAM 15 G TUBE TOP SCH (09:09)
[2017-10-07] MEDS: RisperiDONE 1 MG TABLET PO SCH ×3 (09:09→19:57)
[2017-10-07] MEDS: LISINOPRIL 40 MG TABLET PO SCH (09:09)
[2017-10-07] MEDS: LETROZOLE 2.5 MG TABLET PO SCH (09:09)
--- NOTE | 2017-10-07 10:00 | Neuropsych Progress Note ---
[facility] Subjective Date: 10/07/17 - Sujective/Severity of Illness Medications: Acetaminophen (Tylenol) 650 mg PO Q4H PRN PRN Reason: Pain Last Admin: 10/03/17 23:31 Dose: 650 mg Amlodipine Besylate (Norvasc) 10 mg PO DAILY [facility] Last Admin: 10/07/17 09:09 Dose: 10 mg Duloxetine HCl (Cymbalta) 20 mg PO DAILY [facility] Last Admin: 10/07/17 09:09 Dose: 20 mg Ferrous Sulfate (Feosol) 324 mg PO WB [facility] Last Admin: 10/06/17 08:07 Dose: 324 mg Guaifenesin (Robitussin Liq) 400 mg PO Q6H PRN PRN Reason: Cough /Congestion Last Admin: 10/06/17 22:17 Dose: 400 mg Haloperidol (Haldol) 0.5 mg PO Q6H PRN PRN Reason: Extreme agitation Last Admin: 10/05/17 23:59 Dose: 0.5 mg Haloperidol Lactate (Haldol) 0.5 mg IM Q6H PRN PRN Reason: Extreme agitation Last Admin: 10/04/17 02:42 Dose: 0.5 mg Insulin Aspart (Novolog) 1 - 5 unit SQ SS PRN; Protocol PRN Reason: Hyperglycemia Last Admin: 10/06/17 20:12 Dose: 2 unit Insulin Glargine (Lantus) 18 unit SQ HS [facility] Last Admin: 10/06/17 20:12 Dose: 18 unit Letrozole (Femara) 2.5 mg PO DAILY [facility] Last Admin: 10/07/17 09:09 Dose: 2.5 mg Levothyroxine Sodium (Synthroid) 137 mcg PO ACB [facility] Last Admin: 10/07/17 06:42 Dose: 137 mcg Lisinopril (Prinivil) 40 mg PO DAILY [facility] Last Admin: 10/07/17 09:09 Dose: 40 mg Lorazepam (Ativan) 0.5 mg PO Q6H PRN PRN Reason: Extreme agitation Last Admin: 10/05/17 23:59 Dose: 0.5 mg Lorazepam (Ativan Inj) 0.5 mg IM Q6H PRN PRN Reason: Extreme agitation Magnesium Hydroxide (Mom) 30 ml PO DAILY PRN PRN Reason: Constipation Magnesium Oxide (Magox) 400 mg PO ACBID [facility] Last Admin: 10/07/17 06:43 Dose: 400 mg Menthol (Ricola Sf) 1 lozenge MM PRN PRN PRN Reason: Cough Last Admin: 10/06/17 15:46 Dose: 1 lozenge Metformin HCl (Glucophage) 1,000 mg PO BIDWM [facility] Last Admin: 10/07/17 09:08 Dose: 1,000 mg Nystatin (Mycostatin) 1 applic TP PRN PRN PRN Reason: iritation Last Admin: 10/02/17 22:01 Dose: 1 applic Oxybutynin Chloride (Ditropan) 10 mg PO HS [facility] Last Admin: 10/06/17 20:44 Dose: Not Given Potassium Chloride (K-Dur 20 Meq Tablet) 20 meq PO TIDWM [facility] Last Admin: 10/07/17 09:09 Dose: 20 meq Risperidone (Risperdal) 1 mg PO 08,16 [facility] Last Admin: 10/07/17 09:09 Dose: 1 mg Risperidone (Risperdal) 1 mg PO 21 [facility] Last Admin: 10/06/17 20:44 Dose: Not Given Simethicone (Phazyme) 125 mg PO Q6HR PRN Tramadol HCl (Ultram) 25 mg PO QID PRN PRN Reason: Pain Last Admin: 10/07/17 00:57 Dose: 25 mg Triamcinolone Acetonide (Kenalog) 1 applic TOP DAILY [facility] Last Admin: 10/07/17 09:09 Dose: 1 applic Triamcinolone Acetonide (Kenalog) 1 applic TOP BID PRN PRN Reason: dry skin/itch Subjective: Patient seen and chart reviewed. Nursing reports pt had some issues with falling asleep but no PRN's needed. No behaviors noted. On face to face the pt states she is doing well. She reports her mood is stable. She denies any S/ I or psychosis. Tolerating meds Start Time: 09:00 Stop Time: 09:15 Mental Status Exam Vitals: Last Vital Signs Temp 97.6 F 10/07/17 08:00 Pulse 87 10/07/17 08:00 Resp 16 10/07/17 08:00 BP 136/61 10/07/17 08:00 Pulse Ox 92 10/07/17 08:00 Height: 1.6 m Weight: 92.3 kg - Mental Status Exam Muscle Strength/Tone: Normal Dressing: Casual Grooming: Fair Attitude: Cooperative Motor Activity: Retardation Eye Contact: Poor Speech: Slowed Volume: Soft Rhythm: Slurred Orientation: Oriented X4 Mood: Neutral Rate of Thoughts: Delayed Thought Organization: [place] Associations: Intact Abstract Reasoning: Poor abstract reasoning Thought Content: Delusions (decreased from yesterday), Somatic Concerns Perception/Psychotic: Psychotic Current Hallucinations: Auditory (decreasing per patient report) Language: Naming Impaired Fund of Knowledge: Poor fund of knowledge Memory: Poor-immediate, Poor-recent Suicidal Ideation: Denies Homicidal Ideation: Denies Insight: Poor Judgement: Poor Impulse Control: Fair - Laboratory Result Diagrams: 10/03/17 07:27 10/02/17 18:04 Laboratory Results - last 24 hr 10/06/17 10/06/17 10/07/17 12:27 19:57 06:47 Glucometer 171 245 144 Assessment and Plan (1) Unspecified schizophrenia, chronic condition with acute exacerbation Problem details: Other medical conditions: Acute abdominal pain - resolved Epigastric abdominal mass Delusions and increasing somatic complaints following recent lumpectomy Cough-? acute vs chronic vs acute on chronic Dry skin Dementia Hypertension Diabetes mellitus type 2 GERD Overactive bladder Hyperlipidemia Rosacea Hypothyroidism Breast cancer Allergic rhinitis Current visit: Yes Status: Acute Hospital Course Summary Disclaimer: The visit summary below is not to be considered part of the above Progress Note. Hospital Course: 09/29/17 Hospitalist initial consultation: Agree with admission to [facility] for psych evaluation and management and to provide a safe environment. In regard to her cough, will order PRN cough drops and Robitussin. Monitor for fever or increasing symptoms. It sounds like this is a chronic problem for her. No evidence of obvious infection at this time. Continue metformin and insulin for blood sugar control. Based on a hemoglobin of 7.0 and her recent blood sugars all greater than 180, will increase her Lantus from 12 units to 15 units daily at bedtime. Continue Accu-Cheks. Cetaphil moisturizing lotion for dry skin daily with triamcinolone acetonide cream PRN itch. We will continue to manage patient medically throughout her stay. Thank you for the consult. 09/30/17 Psych: Pt is more alert today. She is pleasant and does not appear to be responding to internal stimuli. Continue current care 10/01/17 Hospitalist: Nurse's notes, psychiatric notes, labs and vitals reviewed Sugars are still elevated, increase Lantus to 17 units daily at bedtime. Continue Accu-Cheks. Patient appears medically stable. No other concerns at this time. 10/02/17 Psych: Will change timing of Risperdal to 0.5mg PO q AM and 1mg PO q 1600 to target sundowning; monitor behavior tonight - may need additional medication to target sundowning behaviors/irritability. 10/02/17 Hospitalist Check CBC, BMP, liver panel, UA, complete abdominal US for evaluation of her pain and hepatomegaly. At present, patient is comfortable and resting, no pain medication needed. Make NPO. Case discussed with Dr. Jewell. Treatment plan to be determined after US is resulted. 10/03/17 Hospitalist Abdominal ultrasound was essentially negative other than hepatic steatosis. Labs are normal. She continues to have an obviously palpable mass in epigastric region, however, her pain has resolved and I don't believe her pain was related to this, suspected it was related. She may have the mass worked up on an OP basis. She's been started on simethicone for her gas pains. 10/03/17 Psych: Plan to increase Risperdal to 1mg PO BID; monitor mood, behavior and response. 10/04/17 Psych: Will increase Risperdal to 1mg PO TID to see if this helps with psychosis/delusions, or if it may be contributing to restlessness. May consider addition of Depakote, whether patient may in fact have schizoaffective disorder , bipolar type. Will also request overnight oximetry. Plan - 10/05/17. Savanna continues to have episodes of restlessness. Continue psychiatric care per Dr. Waters. Continue to provide safe and supportive environment. She denies any acute pain or concerns on exam. Appetite is stable and bowels are moving. Blood pressure noted to be elevated with average systolic pressure around 150. Will increase Norvasc to 10mg daily and continue to monitor blood pressure closely. Blood sugars remain elevated and variable. Extensive review of BGM trends was done. Will increase Lantus to 18 units QHS and continue to monitor closely. Continue home metformin and sliding scale insulin as indicated. Dr. Watres expressed concern for sleep apnea. Will obtain night oximetry tonight for results to be reviewed tomorrow. Continue care plan. 10/06/17- Psych- SOme issues with sleep but no behaviors. Continue current care 10/07/17- Psych- Pt doing fairly well. Continue current care
[2017-10-07] MEDS: ACETAMINOPHEN 325 MG TABLET PO PRN (10:12)
[2017-10-07] MEDS: FERROUS SULFATE 324 MG TABLET PO SCH (10:12)
[2017-10-07] MEDS: MENTHOL COUGH DROPS (RICOLA) MM PRN (10:14)
--- NOTE | 2017-10-07 19:34 | Progress Note ---
- Date 10/07/17 Subjective: F/U: schizophrenia with acute psychosis, uncontrolled diabetes. Savanan is seen sitting in the day room, crying and complains of increased right ear pain and pressure. Initially she states that her ear pain started after waking up from her nap and then later stated that she has had it off and on for 4-5 years. She also complains of a "rash" to her abdomen and "boil" to her left groin. She complains of increasing pain and redness to her left groin and denies any bleeding or discharge. She denies any fevers, chills, cough, congestion, hearing loss, discharge from her ear, chest pain, shortness of breath, abdominal pain, nausea, vomiting, dysuria or diarrhea. She reports that her appetite is good and bowels are moving. Review of her medical records reveals persistently elevated night blood sugars >200 requiring sliding scale insulin each night. She takes Lantus 18 units every evening and Metformin 1000mg BID for her diabetes mellitus. Recent A1c was elevated at 7.0%. Review of her medications indicates that her home Lantus dose was only 12 units each night and has been slowly increased during her hospitalization in an attempt to obtain better control of her hyperglycemia. Nursing notes that overall, patient has been doing well with no behaviors. Objective Vital signs: Temperature 98.1 F 10/07/17 16:21 Pulse Rate 84 10/07/17 16:21 Respiratory Rate 18 10/07/17 16:21 Blood Pressure 128/62 10/07/17 16:21 Pulse Oximetry 93 10/07/17 16:21 Height/Weight/BMI: Height 5 ft 3 in Weight 203 lb 7.787 oz Body Mass Index 35.7 Comments: Patient initially seen while sitting at the table in the day room, crying and complaining of right ear pain. Exam is later moved into her room with nursing present to exam groin abscess and abdominal rash. - Constitutional Present: mild distress (tearful), well nourished, well developed, obese, cooperative - Routine HEENT Exam Head: Present: normocephalic, atraumatic Eye: Present: PERRL. Absent: conjunctival icterus ENT: Present: mucous membranes dry, oropharynx clear. Absent: dentition normal Comments: Right - Erythema with small amount of white sediment noted to right canal; TM dull without erythema or bulging; no pain with movement of tragus or palpation of mastoid; no post-auricular swelling or erythema; small amount of wax in canal but able to view all of TM; no perforation. Left - TM dull without erythema or bulging; no pain with movement of tragus or palpation of mastoid; no post-auricular swelling or erythema; canal clear without discharge or erythema. - Routine Respiratory Exam Present: CTA bilaterally. Absent: rales, respiratory distress, rhonchi, stridor , wheezes - Routine Cardiovascular Exam Present: RRR, S1, S2, murmur - Routine Abdominal Exam Present: soft, normoactive bowel sounds, non distended, non tender. Absent: rebound, guarding - Routine Rectal Exam Visual: Present: normal rectal tone Digital: Present: external hemorrhoid (no inflammation or swelling). Absent: thrombosed external hemorrhoid - Routine Exam Genitals image: 1 - 0.5cmx0.5cm abscess Groin: Present: tenderness, swelling, erythema Comments: 10cm x 10cm fluctuant, erythematous abscess with central pustule noted to left medial internal groin with tenderness with palpation and pressure; no active drainage or red streaking; scattered, mild folliculitis to vaginal and upper thigh region noted; scars from healed lesions noted to buttock, labia and upper thighs. - Routine Extremities Exam Present: edema (trace), non tender, full ROM, pulses intact. Absent: calf tenderness - Routine Back/Spine/Pelvis Exam Back/Spine: Present: full ROM. Absent: vertebral tenderness - Routine Musculoskeletal Exam Musculoskeletal: Present: normal gait, moving extremities well - Routine Skin Exam Present: dry, warm. Absent: jaundice Comments: Multiple circular, erythematous lesions with scattered pustules noted to abdomen in varying stages of healing; no discharge or red streaking; multiple healed circular scars noted to arms, abdomen and upper thighs. - Routine Neurological Exam Present: alert, moving all extremities, hearing grossly intact, normal speech. Absent: facial asymmetry - Routine Lymphatic Exam Lymphatic: Absent: lymphedema - Routine Psychiatric Exam Present: cooperative Comments: tearful. Results - Labs CBC & Chem 7: 02/07/18 07:27 10/02/17 18:04 Assessment and Plan (1) Acute psychosis Current visit: Yes Status: Acute Assessment and Plan: Assessment Acute abdominal pain - resolved Epigastric abdominal mass Delusions and increasing somatic complaints following recent lumpectomy Cough-? acute vs chronic vs acute on chronic Dry skin Dementia Hypertension Diabetes mellitus type 2 - uncontrolled. GERD Schizophrenia Bipolar disorder Overactive bladder Hyperlipidemia Rosacea Hypothyroidism Breast cancer Allergic rhinitis Left groin abscess with I&D 10/07/17 - NEW DIAGNOSIS. Pustular rash to abdomen and folliculitis concerning for MRSA - NEW DIAGNOSIS. Right Otalgia with otitis externa - NEW DIANGNOSIS. Plan - 10/07/17. Savanna complains of severe right ear pain and exam is consistent with otitis externa. In light of uncontrolled diabetes, will cover for pseudomonas. Initiate Ciprodex 4 drop right ear BID through 10/14/17. Abscess to left upper, medial groin I&D on 10/07/17. Patient tolerated well. Culture obtained with results pending. Suspect MRSA. Initiate Clindamycin 300mg TID through 10/17/17. Lactobacillius to assist with possible GI upset associated with Clinda. Monitor patient closely for signs of yeast infections. Anticipate improvement of pustular lesions on abdomen as well as mild folliculitis to groin with Clindamycin. If abdominal pustules persist following treatment with clindamycin, may consider addition of fungal component. Maintain good hand hygiene given suspicion of MRSA. Bactroban to each nostril BID for treatment of suspected colonization. Blood sugars noted to be elevated at night >200, requiring sliding scale insulin each night. Home medications include Metformin 1000mg BID and Lantus 12 units QHS. Throughout her admission, lantus has slowly be increased with better control. Continue current dose at 18 units QHS. Will increase frequency of BGMs for better evaluation of blood sugar trends to assist in management for optimum control. May need to initiate TID insulin once trends are evaluated. A1c 7% on admission. Consider consult to Dr. Cuellar for additional assistance with medication adjustments for DM. Blood pressure improved with increase of Norvasc to 10mg daily on 10/06/17. Continue to monitor. Behaviors appear to be improving and stable. Continue psychiatric care per Dr. Waters. Continue to provide safe and supportive environment. Recheck labs in AM to monitor blood counts, electrolytes and renal function given recent medication changes. Allow abscess to drain and keep area clean and dry. Warm compresses Q2-3 hours as tolerated. Avoid excess pressure to area and wear loose fitting clothing. Resuscitation Status: Full Code - Time spent with patient Time with patient PN: 50 minutes - Physician Narrative Physician: Femi Jewell MD Narrative: Date: 10/07/17 Time: 1929 Hospital Course Summary Disclaimer: The visit summary below is not to be considered part of the above Progress Note. Hospital Course: 09/29/17 Hospitalist initial consultation: Agree with admission to [facility] for psych evaluation and management and to provide a safe environment. In regard to her cough, will order PRN cough drops and Robitussin. Monitor for fever or increasing symptoms. It sounds like this is a chronic problem for her. No evidence of obvious infection at this time. Continue metformin and insulin for blood sugar control. Based on a hemoglobin of 7.0 and her recent blood sugars all greater than 180, will increase her Lantus from 12 units to 15 units daily at bedtime. Continue Accu-Cheks. Cetaphil moisturizing lotion for dry skin daily with triamcinolone acetonide cream PRN itch. We will continue to manage patient medically throughout her stay. Thank you for the consult. 09/30/17 Psych: Pt is more alert today. She is pleasant and does not appear to be responding to internal stimuli. Continue current care 10/01/17 Hospitalist: Nurse's notes, psychiatric notes, labs and vitals reviewed Sugars are still elevated, increase Lantus to 17 units daily at bedtime. Continue Accu-Cheks. Patient appears medically stable. No other concerns at this time. 10/02/17 Psych: Will change timing of Risperdal to 0.5mg PO q AM and 1mg PO q 1600 to target sundowning; monitor behavior tonight - may need additional medication to target sundowning behaviors/irritability. 10/02/17 Hospitalist Check CBC, BMP, liver panel, UA, complete abdominal US for evaluation of her pain and hepatomegaly. At present, patient is comfortable and resting, no pain medication needed. Make NPO. Case discussed with Dr. Jewell. Treatment plan to be determined after US is resulted. 10/03/17 Hospitalist Abdominal ultrasound was essentially negative other than hepatic steatosis. Labs are normal. She continues to have an obviously palpable mass in epigastric region, however, her pain has resolved and I don't believe her pain was related to this, suspected it was related. She may have the mass worked up on an OP basis. She's been started on simethicone for her gas pains. 10/03/17 Psych: Plan to increase Risperdal to 1mg PO BID; monitor mood, behavior and response. 10/04/17 Psych: Will increase Risperdal to 1mg PO TID to see if this helps with psychosis/delusions, or if it may be contributing to restlessness. May consider addition of Depakote, whether patient may in fact have schizoaffective disorder , bipolar type. Will also request overnight oximetry. Plan - 10/05/17. Savanna continues to have episodes of restlessness. Continue psychiatric care per Dr. Waters. Continue to provide safe and supportive environment. She denies any acute pain or concerns on exam. Appetite is stable and bowels are moving. Blood pressure noted to be elevated with average systolic pressure around 150. Will increase Norvasc to 10mg daily and continue to monitor blood pressure closely. Blood sugars remain elevated and variable. Extensive review of BGM trends was done. Will increase Lantus to 18 units QHS and continue to monitor closely. Continue home metformin and sliding scale insulin as indicated. Dr. Waters expressed concern for sleep apnea. Will obtain night oximetry tonight for results to be reviewed tomorrow. Continue care plan. 10/06/17- Psych- SOme issues with sleep but no behaviors. Continue current care 10/07/17- Psych- Pt doing fairly well. Continue current care Plan - 10/07/17. Savanna complains of severe right ear pain and exam is consistent with otitis externa. In light of uncontrolled diabetes, will cover for pseudomonas. Initiate Ciprodex 4 drop right ear BID through 10/14/17. Abscess to left upper, medial groin I&D on 10/07/17. Patient tolerated well. Culture obtained with results pending. Suspect MRSA. Initiate Clindamycin 300mg TID through 10/17/17. Lactobacillius to assist with possible GI upset associated with Clinda. Monitor patient closely for signs of yeast infections. Anticipate improvement of pustular lesions on abdomen as well as mild folliculitis to groin with Clindamycin. If abdominal pustules persist following treatment with clindamycin, may consider addition of fungal component. Maintain good hand hygiene given suspicion of MRSA. Bactroban to each nostril BID for treatment of suspected colonization. Blood sugars noted to be elevated at night >200, requiring sliding scale insulin each night. Home medications include Metformin 1000mg BID and Lantus 12 units QHS. Throughout her admission, lantus has slowly be increased with better control. Continue current dose at 18 units QHS. Will increase frequency of BGMs for better evaluation of blood sugar trends to assist in management for optimum control. May need to initiate TID insulin once trends are evaluated. A1c 7% on admission. Consider consult to Dr. Cuellar for additional assistance with medication adjustments for DM. Blood pressure improved with increase of Norvasc to 10mg daily on 10/06/17. Continue to monitor. Behaviors appear to be improving and stable. Continue psychiatric care per Dr. Waters. Continue to provide safe and supportive environment. Recheck labs in AM to monitor blood counts, electrolytes and renal function given recent medication changes. Allow abscess to drain and keep area clean and dry. Warm compresses Q2-3 hours as tolerated. Avoid excess pressure to area and wear loose fitting clothing.
--- NOTE | 2017-10-07 20:18 | Procedure Note ---
Date of procedure: 10/07/17 Pre-op diagnosis: abscess left groin Post-op diagnosis: same Procedure: I&D of left groin abscess: 0.5cmx0.5cm fluctuant, erythematous abscess noted to left, upper, medial groin/ thigh with small central pustule. Abscess with cleansed thoroughly with Betadine. Small x-shaped opening was made with #11 blade resulting in immediate excretion of purulent discharge. Wound culture was obtained and sent for evaluation. Wound was gently probed and manually decompressed with significant improvement of size and relief of patient's discomfort. Wound was flushed with 20-30cc NS. Patient tolerated the procedure very well. Procedure was performed by MATHEW Burgess with the assistance of ISAMAR Walton. Anesthesia: none Estimated blood loss (mL): 3 Pathology: other (abscess wound culture) Condition: Stable Disposition: no change
[2017-10-07] MEDS: INSULIN ASPART 100unit/ml INJECTION SQ PRN (20:24)
[2017-10-07] MEDS: INSULIN GLARGINE 100unit/ml INJECTION SQ SCH (20:25)
[2017-10-07] MEDS: MUPIROCIN 2% OINTMENT 22gm EA NOSTRIL SCH (20:36)
[2017-10-07] MEDS: CLINDAMYCIN 300 MG CAPSULE PO SCH (20:36)
[2017-10-07] MEDS: CIPROFLOXACIN RIGHT EAR SCH (20:38)
[2017-10-07] MEDS: [UNRECOGNIZED DRUG - OTHER] RIGHT EAR SCH (20:38)
[2017-10-08] MEDS: RisperiDONE 1 MG TABLET PO SCH ×5 (01:39→21:50)
[2017-10-08] MEDS: LORazepam 0.5 MG TABLET PO PRN ×2 (01:44→21:28)
[2017-10-08] MEDS: LEVOTHYROXINE 137 MCG TABLET PO SCH (05:43)
[2017-10-08] MEDS: FERROUS SULFATE 324 MG TABLET PO SCH (10:05)
[2017-10-08] MEDS: MAGNESIUM OXIDE 400 MG TABLET PO SCH ×2 (10:05→16:48)
[2017-10-08] MEDS: LACTOBACILLUS (15B cfu) CAPSULE PO SCH ×3 (10:05→16:48)
[2017-10-08] MEDS: METFORMIN 1,000 MG TABLET PO SCH ×2 (10:06→16:49)
[2017-10-08] MEDS: DULOXETINE 20 MG CAPSULE PO SCH (10:07)
[2017-10-08] MEDS: AMLODIPINE 10 MG TABLET PO SCH (10:07)
[2017-10-08] MEDS: CLINDAMYCIN 300 MG CAPSULE PO SCH ×4 (10:07→21:49)
[2017-10-08] MEDS: ACETAMINOPHEN 325 MG TABLET PO PRN (10:08)
[2017-10-08] MEDS: LISINOPRIL 40 MG TABLET PO SCH (10:08)
[2017-10-08] MEDS: LETROZOLE 2.5 MG TABLET PO SCH (10:08)
[2017-10-08] MEDS: [UNRECOGNIZED DRUG - OTHER] RIGHT EAR SCH ×3 (10:35→21:49)
[2017-10-08] MEDS: CIPROFLOXACIN RIGHT EAR SCH ×3 (10:35→21:49)
[2017-10-08] MEDS: MUPIROCIN 2% OINTMENT 22gm EA NOSTRIL SCH ×3 (10:35→21:49)
[2017-10-08] MEDS: TRIAMCINOLONE 0.1% CREAM 15 G TUBE TOP SCH ×2 (10:36→20:32)
[2017-10-08] MEDS: INSULIN ASPART 100unit/ml INJECTION SQ PRN ×2 (11:57→14:52)
[2017-10-08] MEDS: INSULIN GLARGINE 100unit/ml INJECTION SQ SCH (20:04)
[2017-10-08] MEDS: MENTHOL COUGH DROPS (RICOLA) MM PRN (20:33)
--- NOTE | 2017-10-08 21:47 | Neuropsych Progress Note ---
[facility] Subjective Date: 10/08/17 - Sujective/Severity of Illness Medications: Acetaminophen (Tylenol) 650 mg PO Q4H PRN PRN Reason: Pain Last Admin: 10/08/17 10:08 Dose: 650 mg Amlodipine Besylate (Norvasc) 10 mg PO DAILY [facility] Last Admin: 10/08/17 10:07 Dose: 10 mg Ciprofloxacin (Ciprodex) 4 drop RIGHT EAR BID [facility] Stop: 10/14/17 23:59 Last Admin: 10/08/17 19:38 Dose: 4 drop Clindamycin HCl (Cleocin) 300 mg PO TID [facility] Stop: 10/17/17 23:59 Last Admin: 10/08/17 19:39 Dose: 300 mg Duloxetine HCl (Cymbalta) 20 mg PO DAILY [facility] Last Admin: 10/08/17 10:07 Dose: 20 mg Ferrous Sulfate (Feosol) 324 mg PO WB [facility] Last Admin: 10/08/17 10:05 Dose: 324 mg Guaifenesin (Robitussin Liq) 400 mg PO Q6H PRN PRN Reason: Cough /Congestion Last Admin: 10/06/17 22:17 Dose: 400 mg Haloperidol (Haldol) 0.5 mg PO Q6H PRN PRN Reason: Extreme agitation Last Admin: 10/05/17 23:59 Dose: 0.5 mg Haloperidol Lactate (Haldol) 0.5 mg IM Q6H PRN PRN Reason: Extreme agitation Last Admin: 10/04/17 02:42 Dose: 0.5 mg Insulin Aspart (Novolog) 1 - 5 unit SQ SS PRN; Protocol PRN Reason: Hyperglycemia Last Admin: 10/08/17 14:52 Dose: 2 unit Insulin Glargine (Lantus) 18 unit SQ HS [facility] Last Admin: 10/08/17 20:04 Dose: 18 unit Lactobacillus Acidophilus (Culturelle) 2 cap PO TIDWM [facility] Last Admin: 10/08/17 16:48 Dose: 2 cap Letrozole (Femara) 2.5 mg PO DAILY [facility] Last Admin: 10/08/17 10:08 Dose: 2.5 mg Levothyroxine Sodium (Synthroid) 137 mcg PO ACB [facility] Last Admin: 10/08/17 05:43 Dose: 137 mcg Lisinopril (Prinivil) 40 mg PO DAILY [facility] Last Admin: 10/08/17 10:08 Dose: 40 mg Lorazepam (Ativan) 0.5 mg PO Q6H PRN PRN Reason: Extreme agitation Last Admin: 10/08/17 21:28 Dose: 0.5 mg Lorazepam (Ativan Inj) 0.5 mg IM Q6H PRN PRN Reason: Extreme agitation Magnesium Hydroxide (Mom) 30 ml PO DAILY PRN PRN Reason: Constipation Magnesium Oxide (Magox) 400 mg PO ACBID [facility] Last Admin: 10/08/17 16:48 Dose: 400 mg Menthol (Ricola Sf) 1 lozenge MM PRN PRN PRN Reason: Cough Last Admin: 10/08/17 20:33 Dose: 1 lozenge Metformin HCl (Glucophage) 1,000 mg PO BIDWM [facility] Last Admin: 10/08/17 16:49 Dose: 1,000 mg Mupirocin (Bactroban Ointmment) 1 applic EA NOSTRIL BID [facility] Stop: 10/12/17 09:01 Last Admin: 10/08/17 19:40 Dose: 1 applic Nystatin (Mycostatin) 1 applic TP PRN PRN PRN Reason: iritation Last Admin: 10/02/17 22:01 Dose: 1 applic Oxybutynin Chloride (Ditropan) 10 mg PO HS [facility] Last Admin: 10/08/17 19:40 Dose: 10 mg Potassium Chloride (K-Dur 20 Meq Tablet) 20 meq PO TIDWM [facility] Last Admin: 10/08/17 16:48 Dose: 20 meq Risperidone (Risperdal) 1 mg PO 08,16 [facility] Last Admin: 10/08/17 16:49 Dose: 1 mg Risperidone (Risperdal) 1 mg PO 21 [facility] Last Admin: 10/08/17 19:41 Dose: 1 mg Simethicone (Phazyme) 125 mg PO Q6HR PRN Tramadol HCl (Ultram) 25 mg PO QID PRN PRN Reason: Pain Last Admin: 10/07/17 18:31 Dose: 25 mg Triamcinolone Acetonide (Kenalog) 1 applic TOP DAILY [facility] Last Admin: 10/08/17 20:32 Dose: 1 applic Triamcinolone Acetonide (Kenalog) 1 applic TOP BID PRN PRN Reason: dry skin/itch Subjective: Patient seen and chart reviewed. Case discussed with treatment team. On interview, patient says she "daydreams" at times and gets sad about things. She continues to have a lot of somatic anxiety. Patient denies any SI or HI. She minimizes AH but appears to be responding to internal stimuli throughout the interview. Patient denies any adverse side effects related to psychotropic medications. Nursing staff report patient can be sad at times and frequently dependent on others. She requires encouragement for hygienic cares. Patient has been adherent with medications. Patient complains of not sleeping well but slept ~7 hours overnight. VSS. Patient is eating well. Psychotropic PRNs required in the past 24 hours: none. Start Time: 12:40 Stop Time: 13:00 Mental Status Exam Vitals: Last Vital Signs Temp 97.4 F 10/08/17 20:19 Pulse 81 10/08/17 20:19 Resp 20 10/08/17 20:19 BP 142/66 H 10/08/17 20:19 Pulse Ox 96 10/08/17 20:19 Height: 1.6 m Weight: 92.4 kg - Mental Status Exam Muscle Strength/Tone: Normal Dressing: Casual Grooming: Fair Attitude: Cooperative Motor Activity: Retardation Eye Contact: Poor Speech: Slowed Volume: Soft Rhythm: Mumbled Orientation: Oriented X4 Mood: Neutral Affect: Sad Rate of Thoughts: Delayed Thought Organization: [place] Associations: Intact Abstract Reasoning: Poor abstract reasoning Thought Content: Ruminations, Somatic Concerns Perception/Psychotic: Psychotic Current Hallucinations: Auditory (decreasing per patient report) Language: Naming Impaired Fund of Knowledge: Poor fund of knowledge Memory: Poor-immediate, Poor-recent Suicidal Ideation: Denies Homicidal Ideation: Denies Insight: Poor Judgement: Poor Impulse Control: Fair - Laboratory Result Diagrams: 10/08/17 06:45 10/08/17 06:45 Laboratory Results - last 24 hr 10/08/17 10/08/17 10/08/17 06:45 06:45 11:45 WBC 6.8 RBC 3.81 L Hgb 9.8 L Hct 31.7 L MCV 83.2 MCH 25.7 L MCHC 30.9 L RDW Std Deviation 45.1 Plt Count 201 MPV 9.9 Immature Gran % (Auto) 0.7 H Neut % (Auto) 70.9 H Lymph % (Auto) 11.0 L [place] % (Auto) 10.0 H Eos % (Auto) 6.8 H Baso % (Auto) 0.6 Neut # (Auto) 4.8 Lymph # (Auto) 0.8 L [place] # (Auto) 0.7 Eos # (Auto) 0.5 Baso # (Auto) 0.0 Abs Immat Gran (auto) 0.05 H Turbidity < 20 Sodium 134 Potassium 4.2 Chloride 99 Carbon Dioxide 25 Anion Gap 10 BUN 16.0 Creatinine 0.6 L GFR Calculation 97 BUN/Creatinine Ratio 27 H Glucose 169 H Glucometer 254 Calculated Osmolality 263 Calcium 9.1 Icterus Index < 2 Specimen Hemolysis 30 H 10/08/17 10/08/17 14:33 19:44 WBC RBC Hgb Hct MCV MCH MCHC RDW Std Deviation Plt Count MPV Immature Gran % (Auto) Neut % (Auto) Lymph % (Auto) [place] % (Auto) Eos % (Auto) Baso % (Auto) Neut # (Auto) Lymph # (Auto) [place] # (Auto) Eos # (Auto) Baso # (Auto) Abs Immat Gran (auto) Turbidity Sodium Potassium Chloride Carbon Dioxide Anion Gap BUN Creatinine GFR Calculation BUN/Creatinine Ratio Glucose Glucometer 203 179 Calculated Osmolality Calcium Icterus Index Specimen Hemolysis Assessment and Plan (1) Unspecified schizophrenia, chronic condition with acute exacerbation Problem details: Other medical conditions: Acute abdominal pain - resolved Epigastric abdominal mass Delusions and increasing somatic complaints following recent lumpectomy Cough-? acute vs chronic vs acute on chronic Dry skin Dementia Hypertension Diabetes mellitus type 2 GERD Overactive bladder Hyperlipidemia Rosacea Hypothyroidism Breast cancer Allergic rhinitis Current visit: Yes Status: Acute Continue current care and monitor symptoms further prior to making more medication changes. Patient asks for sleep medication but seems to be getting adequate sleep currently. Hospital Course Summary Disclaimer: The visit summary below is not to be considered part of the above Progress Note. Hospital Course: 09/29/17 Hospitalist initial consultation: Agree with admission to [facility] for psych evaluation and management and to provide a safe environment. In regard to her cough, will order PRN cough drops and Robitussin. Monitor for fever or increasing symptoms. It sounds like this is a chronic problem for her. No evidence of obvious infection at this time. Continue metformin and insulin for blood sugar control. Based on a hemoglobin of 7.0 and her recent blood sugars all greater than 180, will increase her Lantus from 12 units to 15 units daily at bedtime. Continue Accu-Cheks. Cetaphil moisturizing lotion for dry skin daily with triamcinolone acetonide cream PRN itch. We will continue to manage patient medically throughout her stay. Thank you for the consult. 09/30/17 Psych: Pt is more alert today. She is pleasant and does not appear to be responding to internal stimuli. Continue current care 10/01/17 Hospitalist: Nurse's notes, psychiatric notes, labs and vitals reviewed Sugars are still elevated, increase Lantus to 17 units daily at bedtime. Continue Accu-Cheks. Patient appears medically stable. No other concerns at this time. 10/02/17 Psych: Will change timing of Risperdal to 0.5mg PO q AM and 1mg PO q 1600 to target sundowning; monitor behavior tonight - may need additional medication to target sundowning behaviors/irritability. 10/02/17 Hospitalist Check CBC, BMP, liver panel, UA, complete abdominal US for evaluation of her pain and hepatomegaly. At present, patient is comfortable and resting, no pain medication needed. Make NPO. Case discussed with Dr. Jewell. Treatment plan to be determined after US is resulted. 10/03/17 Hospitalist Abdominal ultrasound was essentially negative other than hepatic steatosis. Labs are normal. She continues to have an obviously palpable mass in epigastric region, however, her pain has resolved and I don't believe her pain was related to this, suspected it was related. She may have the mass worked up on an OP basis. She's been started on simethicone for her gas pains. 10/03/17 Psych: Plan to increase Risperdal to 1mg PO BID; monitor mood, behavior and response. 10/04/17 Psych: Will increase Risperdal to 1mg PO TID to see if this helps with psychosis/delusions, or if it may be contributing to restlessness. May consider addition of Depakote, whether patient may in fact have schizoaffective disorder , bipolar type. Will also request overnight oximetry. Plan - 10/05/17. Savanna continues to have episodes of restlessness. Continue psychiatric care per Dr. Waters. Continue to provide safe and supportive environment. She denies any acute pain or concerns on exam. Appetite is stable and bowels are moving. Blood pressure noted to be elevated with average systolic pressure around 150. Will increase Norvasc to 10mg daily and continue to monitor blood pressure closely. Blood sugars remain elevated and variable. Extensive review of BGM trends was done. Will increase Lantus to 18 units QHS and continue to monitor closely. Continue home metformin and sliding scale insulin as indicated. Dr. Waters expressed concern for sleep apnea. Will obtain night oximetry tonight for results to be reviewed tomorrow. Continue care plan. 10/06/17- Psych- SOme issues with sleep but no behaviors. Continue current care 10/07/17- Psych- Pt doing fairly well. Continue current care Plan - 10/07/17. Savanna complains of severe right ear pain and exam is consistent with otitis externa. In light of uncontrolled diabetes, will cover for pseudomonas. Initiate Ciprodex 4 drop right ear BID through 10/14/17. Abscess to left upper, medial groin I&D on 10/07/17. Patient tolerated well. Culture obtained with results pending. Suspect MRSA. Initiate Clindamycin 300mg TID through 10/17/17. Lactobacillius to assist with possible GI upset associated with Clinda. Monitor patient closely for signs of yeast infections. Anticipate improvement of pustular lesions on abdomen as well as mild folliculitis to groin with Clindamycin. If abdominal pustules persist following treatment with clindamycin, may consider addition of fungal component. Maintain good hand hygiene given suspicion of MRSA. Bactroban to each nostril BID for treatment of suspected colonization. Blood sugars noted to be elevated at night >200, requiring sliding scale insulin each night. Home medications include Metformin 1000mg BID and Lantus 12 units QHS. Throughout her admission, lantus has slowly be increased with better control. Continue current dose at 18 units QHS. Will increase frequency of BGMs for better evaluation of blood sugar trends to assist in management for optimum control. May need to initiate TID insulin once trends are evaluated. A1c 7% on admission. Consider consult to Dr. Cuellar for additional assistance with medication adjustments for DM. Blood pressure improved with increase of Norvasc to 10mg daily on 10/06/17. Continue to monitor. Behaviors appear to be improving and stable. Continue psychiatric care per Dr. Waters. Continue to provide safe and supportive environment. Recheck labs in AM to monitor blood counts, electrolytes and renal function given recent medication changes. Allow abscess to drain and keep area clean and dry. Warm compresses Q2-3 hours as tolerated. Avoid excess pressure to area and wear loose fitting clothing.
[2017-10-09] MEDS: MAGNESIUM OXIDE 400 MG TABLET PO SCH ×2 (08:12→17:32)
[2017-10-09] MEDS: LEVOTHYROXINE 137 MCG TABLET PO SCH (08:12)
[2017-10-09] MEDS: FERROUS SULFATE 324 MG TABLET PO SCH (08:13)
[2017-10-09] MEDS: METFORMIN 1,000 MG TABLET PO SCH ×2 (08:13→17:33)
[2017-10-09] MEDS: LACTOBACILLUS (15B cfu) CAPSULE PO SCH ×3 (08:13→17:33)
[2017-10-09] MEDS: LETROZOLE 2.5 MG TABLET PO SCH (08:13)
[2017-10-09] MEDS: [UNRECOGNIZED DRUG - OTHER] RIGHT EAR SCH ×2 (08:15→21:21)
[2017-10-09] MEDS: AMLODIPINE 10 MG TABLET PO SCH (08:15)
[2017-10-09] MEDS: RisperiDONE 1 MG TABLET PO SCH ×3 (08:15→21:23)
[2017-10-09] MEDS: CIPROFLOXACIN RIGHT EAR SCH ×2 (08:15→21:21)
[2017-10-09] MEDS: DULOXETINE 20 MG CAPSULE PO SCH (08:16)
[2017-10-09] MEDS: MUPIROCIN 2% OINTMENT 22gm EA NOSTRIL SCH ×2 (08:16→21:22)
[2017-10-09] MEDS: CLINDAMYCIN 300 MG CAPSULE PO SCH ×3 (08:16→21:21)
[2017-10-09] MEDS: LISINOPRIL 40 MG TABLET PO SCH (08:16)
[2017-10-09] MEDS: TRIAMCINOLONE 0.1% CREAM 15 G TUBE TOP SCH (08:17)
[2017-10-09] MEDS: GUAIFENESIN 200mg/10ml ORAL LIQUID PO PRN (08:20)
[2017-10-09] MEDS: INSULIN ASPART 100unit/ml INJECTION SQ PRN ×2 (10:33→14:47)
[2017-10-09] MEDS: INSULIN GLARGINE 100unit/ml INJECTION SQ SCH (21:42)
[2017-10-09] MEDS: MAG-AL + SIM ORAL LIQUID 30ml PO PRN (22:33)
--- NOTE | 2017-10-09 22:45 | Neuropsych Progress Note ---
[facility] Subjective Date: 10/10/17 - Sujective/Severity of Illness Medications: Acetaminophen (Tylenol) 650 mg PO Q4H PRN PRN Reason: Pain Last Admin: 10/08/17 10:08 Dose: 650 mg Al Hydroxide/Mg Hydroxide (Maalox Plus) 30 ml PO Q6H PRN PRN Reason: Indigestion Last Admin: 10/09/17 22:33 Dose: 30 ml Amlodipine Besylate (Norvasc) 10 mg PO DAILY [facility] Last Admin: 10/09/17 08:15 Dose: 10 mg Ciprofloxacin (Ciprodex) 4 drop RIGHT EAR BID [facility] Stop: 10/14/17 23:59 Last Admin: 10/09/17 21:21 Dose: 4 drop Clindamycin HCl (Cleocin) 300 mg PO TID [facility] Stop: 10/17/17 23:59 Last Admin: 10/09/17 21:21 Dose: 300 mg Duloxetine HCl (Cymbalta) 20 mg PO DAILY [facility] Last Admin: 10/09/17 08:16 Dose: 20 mg Ferrous Sulfate (Feosol) 324 mg PO WB [facility] Last Admin: 10/09/17 08:13 Dose: 324 mg Guaifenesin (Robitussin Liq) 400 mg PO Q6H PRN PRN Reason: Cough /Congestion Last Admin: 10/09/17 08:20 Dose: 400 mg Haloperidol (Haldol) 0.5 mg PO Q6H PRN PRN Reason: Extreme agitation Last Admin: 10/05/17 23:59 Dose: 0.5 mg Haloperidol Lactate (Haldol) 0.5 mg IM Q6H PRN PRN Reason: Extreme agitation Last Admin: 10/04/17 02:42 Dose: 0.5 mg Insulin Aspart (Novolog) 1 - 5 unit SQ SS PRN; Protocol PRN Reason: Hyperglycemia Last Admin: 10/09/17 14:47 Dose: 1 unit Insulin Glargine (Lantus) 18 unit SQ HS [facility] Last Admin: 10/09/17 21:42 Dose: 18 unit Lactobacillus Acidophilus (Culturelle) 2 cap PO TIDWM [facility] Last Admin: 10/09/17 17:33 Dose: 2 cap Letrozole (Femara) 2.5 mg PO DAILY [facility] Last Admin: 10/09/17 08:13 Dose: 2.5 mg Levothyroxine Sodium (Synthroid) 137 mcg PO ACB [facility] Last Admin: 10/09/17 08:12 Dose: 137 mcg Lisinopril (Prinivil) 40 mg PO DAILY [facility] Last Admin: 10/09/17 08:16 Dose: 40 mg Lorazepam (Ativan) 0.5 mg PO Q6H PRN PRN Reason: Extreme agitation Last Admin: 10/08/17 21:28 Dose: 0.5 mg Lorazepam (Ativan Inj) 0.5 mg IM Q6H PRN PRN Reason: Extreme agitation Magnesium Hydroxide (Mom) 30 ml PO DAILY PRN PRN Reason: Constipation Magnesium Oxide (Magox) 400 mg PO ACBID [facility] Last Admin: 10/09/17 17:32 Dose: 400 mg Menthol (Ricola Sf) 1 lozenge MM PRN PRN PRN Reason: Cough Last Admin: 10/08/17 20:33 Dose: 1 lozenge Metformin HCl (Glucophage) 1,000 mg PO BIDWM [facility] Last Admin: 10/09/17 17:33 Dose: 1,000 mg Mupirocin (Bactroban Ointmment) 1 applic EA NOSTRIL BID [facility] Stop: 10/12/17 09:01 Last Admin: 10/09/17 21:22 Dose: 1 applic Nystatin (Mycostatin) 1 applic TP PRN PRN PRN Reason: iritation Last Admin: 10/02/17 22:01 Dose: 1 applic Oxybutynin Chloride (Ditropan) 10 mg PO HS [facility] Last Admin: 10/09/17 21:22 Dose: 10 mg Potassium Chloride (K-Dur 20 Meq Tablet) 20 meq PO TIDWM [facility] Last Admin: 10/09/17 17:33 Dose: 20 meq Risperidone (Risperdal) 1 mg PO 08,16 [facility] Last Admin: 10/09/17 17:32 Dose: 1 mg Risperidone (Risperdal) 1 mg PO 21 [facility] Last Admin: 10/09/17 21:23 Dose: 1 mg Simethicone (Phazyme) 125 mg PO Q6HR PRN Tramadol HCl (Ultram) 25 mg PO QID PRN PRN Reason: Pain Last Admin: 10/07/17 18:31 Dose: 25 mg Triamcinolone Acetonide (Kenalog) 1 applic TOP DAILY [facility] Last Admin: 10/09/17 08:17 Dose: 1 applic Triamcinolone Acetonide (Kenalog) 1 applic TOP BID PRN PRN Reason: dry skin/itch Subjective: Patient seen and chart reviewed. Case discussed with treatment team. On interview, patient is playing Bingo and seems to have a bright affect while interacting with staff, peers. She reports she feels sad sometimes but cannot elaborate as to why. Patient denies any SI or HI. She minimizes AH but appears to be responding to internal stimuli throughout the interview. Patient denies any adverse side effects related to psychotropic medications. Nursing staff report patient becomes more irritable in the evenings and was given a PRN Ativan by request at 2128. Patient has been adherent with medications. Patient slept well overnight with PRN. VSS. Patient is eating well. Start Time: 14:40 Stop Time: 15:00 Mental Status Exam Vitals: Last Vital Signs Temp 98.0 F 10/09/17 16:00 Pulse 85 10/09/17 16:00 Resp 18 10/09/17 16:00 BP 141/66 H 10/09/17 16:00 Pulse Ox 96 10/09/17 16:00 Height: 1.6 m Weight: 92.4 kg - Mental Status Exam Muscle Strength/Tone: Normal Dressing: Casual Grooming: Fair Attitude: Cooperative Motor Activity: Retardation Eye Contact: Poor Speech: Slowed Volume: Soft Rhythm: Mumbled Orientation: Oriented X4 Mood: Other (reports feeling sad sometimes) Affect: Bright, Relaxed Rate of Thoughts: Delayed Thought Organization: [employer] Associations: Intact Abstract Reasoning: Poor abstract reasoning Thought Content: Ruminations, Somatic Concerns Perception/Psychotic: Psychotic Current Hallucinations: Auditory (decreasing per patient report) Language: Naming Impaired Fund of Knowledge: Poor fund of knowledge Memory: Poor-immediate, Poor-recent Suicidal Ideation: Denies Homicidal Ideation: Denies Insight: Poor Judgement: Poor Impulse Control: Fair - Laboratory Result Diagrams: 10/08/17 06:45 10/08/17 06:45 Laboratory Results - last 24 hr 10/08/17 10/09/17 10/09/17 06:45 09:55 14:29 Glucometer 279 164 Triglycerides 166 H Cholesterol 173 LDL Cholesterol, Calc 97.8 VLDL Cholesterol 33.2 H HDL Cholesterol 42 Cholesterol/HDL Ratio 4.1 H 10/09/17 21:34 Glucometer 149 Triglycerides Cholesterol LDL Cholesterol, Calc VLDL Cholesterol HDL Cholesterol Cholesterol/HDL Ratio Assessment and Plan (1) Unspecified schizophrenia, chronic condition with acute exacerbation Problem details: Other medical conditions: Acute abdominal pain - resolved Epigastric abdominal mass Delusions and increasing somatic complaints following recent lumpectomy Cough-? acute vs chronic vs acute on chronic Dry skin Dementia Hypertension Diabetes mellitus type 2 GERD Overactive bladder Hyperlipidemia Rosacea Hypothyroidism Breast cancer Allergic rhinitis Current visit: Yes Status: Acute Continue current care and monitor behavior, attempting to establish whether this is baseline or further improvements could be made. Hospital Course Summary Disclaimer: The visit summary below is not to be considered part of the above Progress Note. Hospital Course: 09/29/17 Hospitalist initial consultation: Agree with admission to [facility] for psych evaluation and management and to provide a safe environment. In regard to her cough, will order PRN cough drops and Robitussin. Monitor for fever or increasing symptoms. It sounds like this is a chronic problem for her. No evidence of obvious infection at this time. Continue metformin and insulin for blood sugar control. Based on a hemoglobin of 7.0 and her recent blood sugars all greater than 180, will increase her Lantus from 12 units to 15 units daily at bedtime. Continue Accu-Cheks. Cetaphil moisturizing lotion for dry skin daily with triamcinolone acetonide cream PRN itch. We will continue to manage patient medically throughout her stay. Thank you for the consult. 09/30/17 Psych: Pt is more alert today. She is pleasant and does not appear to be responding to internal stimuli. Continue current care 10/01/17 Hospitalist: Nurse's notes, psychiatric notes, labs and vitals reviewed Sugars are still elevated, increase Lantus to 17 units daily at bedtime. Continue Accu-Cheks. Patient appears medically stable. No other concerns at this time. 10/02/17 Psych: Will change timing of Risperdal to 0.5mg PO q AM and 1mg PO q 1600 to target sundowning; monitor behavior tonight - may need additional medication to target sundowning behaviors/irritability. 10/02/17 Hospitalist Check CBC, BMP, liver panel, UA, complete abdominal US for evaluation of her pain and hepatomegaly. At present, patient is comfortable and resting, no pain medication needed. Make NPO. Case discussed with Dr. Jewell. Treatment plan to be determined after US is resulted. 10/03/17 Hospitalist Abdominal ultrasound was essentially negative other than hepatic steatosis. Labs are normal. She continues to have an obviously palpable mass in epigastric region, however, her pain has resolved and I don't believe her pain was related to this, suspected it was related. She may have the mass worked up on an OP basis. She's been started on simethicone for her gas pains. 10/03/17 Psych: Plan to increase Risperdal to 1mg PO BID; monitor mood, behavior and response. 10/04/17 Psych: Will increase Risperdal to 1mg PO TID to see if this helps with psychosis/delusions, or if it may be contributing to restlessness. May consider addition of Depakote, whether patient may in fact have schizoaffective disorder , bipolar type. Will also request overnight oximetry. Plan - 10/05/17. Savanna continues to have episodes of restlessness. Continue psychiatric care per Dr. Waters. Continue to provide safe and supportive environment. She denies any acute pain or concerns on exam. Appetite is stable and bowels are moving. Blood pressure noted to be elevated with average systolic pressure around 150. Will increase Norvasc to 10mg daily and continue to monitor blood pressure closely. Blood sugars remain elevated and variable. Extensive review of BGM trends was done. Will increase Lantus to 18 units QHS and continue to monitor closely. Continue home metformin and sliding scale insulin as indicated. Dr. Waters expressed concern for sleep apnea. Will obtain night oximetry tonight for results to be reviewed tomorrow. Continue care plan. 10/06/17- Psych- SOme issues with sleep but no behaviors. Continue current care 10/07/17- Psych- Pt doing fairly well. Continue current care Plan - 10/07/17. Savanna complains of severe right ear pain and exam is consistent with otitis externa. In light of uncontrolled diabetes, will cover for pseudomonas. Initiate Ciprodex 4 drop right ear BID through 10/14/17. Abscess to left upper, medial groin I&D on 10/07/17. Patient tolerated well. Culture obtained with results pending. Suspect MRSA. Initiate Clindamycin 300mg TID through 10/17/17. Lactobacillius to assist with possible GI upset associated with Clinda. Monitor patient closely for signs of yeast infections. Anticipate improvement of pustular lesions on abdomen as well as mild folliculitis to groin with Clindamycin. If abdominal pustules persist following treatment with clindamycin, may consider addition of fungal component. Maintain good hand hygiene given suspicion of MRSA. Bactroban to each nostril BID for treatment of suspected colonization. Blood sugars noted to be elevated at night >200, requiring sliding scale insulin each night. Home medications include Metformin 1000mg BID and Lantus 12 units QHS. Throughout her admission, lantus has slowly be increased with better control. Continue current dose at 18 units QHS. Will increase frequency of BGMs for better evaluation of blood sugar trends to assist in management for optimum control. May need to initiate TID insulin once trends are evaluated. A1c 7% on admission. Consider consult to Dr. Cuellar for additional assistance with medication adjustments for DM. Blood pressure improved with increase of Norvasc to 10mg daily on 10/06/17. Continue to monitor. Behaviors appear to be improving and stable. Continue psychiatric care per Dr. Waters. Continue to provide safe and supportive environment. Recheck labs in AM to monitor blood counts, electrolytes and renal function given recent medication changes. Allow abscess to drain and keep area clean and dry. Warm compresses Q2-3 hours as tolerated. Avoid excess pressure to area and wear loose fitting clothing.
[2017-10-09] MEDS: TRAMADOL 50 MG TABLET PO PRN (22:48)
[2017-10-10] MEDS: LEVOTHYROXINE 137 MCG TABLET PO SCH (10:48)
[2017-10-10] MEDS: FERROUS SULFATE 324 MG TABLET PO SCH (10:48)
[2017-10-10] MEDS: MAGNESIUM OXIDE 400 MG TABLET PO SCH ×2 (10:48→18:02)
[2017-10-10] MEDS: AMLODIPINE 10 MG TABLET PO SCH (10:49)
[2017-10-10] MEDS: LETROZOLE 2.5 MG TABLET PO SCH (10:49)
[2017-10-10] MEDS: METFORMIN 1,000 MG TABLET PO SCH ×2 (10:49→18:02)
[2017-10-10] MEDS: LACTOBACILLUS (15B cfu) CAPSULE PO SCH ×3 (10:49→18:02)
[2017-10-10] MEDS: [UNRECOGNIZED DRUG - OTHER] RIGHT EAR SCH ×2 (10:50→20:15)
[2017-10-10] MEDS: CLINDAMYCIN 300 MG CAPSULE PO SCH ×3 (10:50→21:06)
[2017-10-10] MEDS: CIPROFLOXACIN RIGHT EAR SCH ×2 (10:50→20:15)
[2017-10-10] MEDS: DULOXETINE 20 MG CAPSULE PO SCH (10:50)
[2017-10-10] MEDS: LISINOPRIL 40 MG TABLET PO SCH (10:50)
[2017-10-10] MEDS: RisperiDONE 1 MG TABLET PO SCH ×3 (10:50→20:21)
[2017-10-10] MEDS: TRIAMCINOLONE 0.1% CREAM 15 G TUBE TOP SCH (10:51)
[2017-10-10] MEDS: MUPIROCIN 2% OINTMENT 22gm EA NOSTRIL SCH ×2 (10:51→20:20)
--- NOTE | 2017-10-10 16:23 | Neuropsych Progress Note ---
[facility] Subjective Date: 10/10/17 - Sujective/Severity of Illness Medications: Acetaminophen (Tylenol) 650 mg PO Q4H PRN PRN Reason: Pain Last Admin: 10/08/17 10:08 Dose: 650 mg Al Hydroxide/Mg Hydroxide (Maalox Plus) 30 ml PO Q6H PRN PRN Reason: Indigestion Last Admin: 10/09/17 22:33 Dose: 30 ml Amlodipine Besylate (Norvasc) 10 mg PO DAILY [facility] Last Admin: 10/10/17 10:49 Dose: 10 mg Ciprofloxacin (Ciprodex) 4 drop RIGHT EAR BID [facility] Stop: 10/14/17 23:59 Last Admin: 10/10/17 10:50 Dose: 4 drop Clindamycin HCl (Cleocin) 300 mg PO TID [facility] Stop: 10/17/17 23:59 Last Admin: 10/10/17 14:17 Dose: 300 mg Divalproex Sodium (Depakote) 250 mg PO 18 [facility] Duloxetine HCl (Cymbalta) 20 mg PO DAILY [facility] Last Admin: 10/10/17 10:50 Dose: 20 mg Ferrous Sulfate (Feosol) 324 mg PO WB [facility] Last Admin: 10/10/17 10:48 Dose: 324 mg Guaifenesin (Robitussin Liq) 400 mg PO Q6H PRN PRN Reason: Cough /Congestion Last Admin: 10/09/17 08:20 Dose: 400 mg Haloperidol (Haldol) 0.5 mg PO Q6H PRN PRN Reason: Extreme agitation Last Admin: 10/05/17 23:59 Dose: 0.5 mg Haloperidol Lactate (Haldol) 0.5 mg IM Q6H PRN PRN Reason: Extreme agitation Last Admin: 10/04/17 02:42 Dose: 0.5 mg Insulin Aspart (Novolog) 1 - 5 unit SQ SS PRN; Protocol PRN Reason: Hyperglycemia Last Admin: 10/09/17 14:47 Dose: 1 unit Insulin Glargine (Lantus) 18 unit SQ HS [facility] Last Admin: 10/09/17 21:42 Dose: 18 unit Lactobacillus Acidophilus (Culturelle) 2 cap PO TIDWM [facility] Last Admin: 10/10/17 14:17 Dose: 2 cap Letrozole (Femara) 2.5 mg PO DAILY [facility] Last Admin: 10/10/17 10:49 Dose: 2.5 mg Levothyroxine Sodium (Synthroid) 137 mcg PO ACB [facility] Last Admin: 10/10/17 10:48 Dose: 137 mcg Lisinopril (Prinivil) 40 mg PO DAILY [facility] Last Admin: 10/10/17 10:50 Dose: 40 mg Lorazepam (Ativan) 0.5 mg PO Q6H PRN PRN Reason: Extreme agitation Last Admin: 10/08/17 21:28 Dose: 0.5 mg Lorazepam (Ativan Inj) 0.5 mg IM Q6H PRN PRN Reason: Extreme agitation Last Admin: 10/10/17 00:50 Dose: 0.5 mg Magnesium Hydroxide (Mom) 30 ml PO DAILY PRN PRN Reason: Constipation Magnesium Oxide (Magox) 400 mg PO ACBID [facility] Last Admin: 10/10/17 10:48 Dose: 400 mg Menthol (Ricola Sf) 1 lozenge MM PRN PRN PRN Reason: Cough Last Admin: 10/08/17 20:33 Dose: 1 lozenge Metformin HCl (Glucophage) 1,000 mg PO BIDWM [facility] Last Admin: 10/10/17 10:49 Dose: 1,000 mg Mupirocin (Bactroban Ointmment) 1 applic EA NOSTRIL BID [facility] Stop: 10/12/17 09:01 Last Admin: 10/10/17 10:51 Dose: 1 applic Nystatin (Mycostatin) 1 applic TP PRN PRN PRN Reason: iritation Last Admin: 10/02/17 22:01 Dose: 1 applic Oxybutynin Chloride (Ditropan) 10 mg PO HS [facility] Last Admin: 10/09/17 21:22 Dose: 10 mg Potassium Chloride (K-Dur 20 Meq Tablet) 20 meq PO TIDWM [facility] Last Admin: 10/10/17 14:17 Dose: 20 meq Risperidone (Risperdal) 1 mg PO 08,16 [facility] Last Admin: 10/10/17 10:50 Dose: 1 mg Risperidone (Risperdal) 1 mg PO 21 [facility] Last Admin: 10/09/17 21:23 Dose: 1 mg Simethicone (Phazyme) 125 mg PO Q6HR PRN Tramadol HCl (Ultram) 25 mg PO QID PRN PRN Reason: Pain Last Admin: 10/09/17 22:48 Dose: 25 mg Triamcinolone Acetonide (Kenalog) 1 applic TOP DAILY [facility] Last Admin: 10/10/17 10:51 Dose: 1 applic Triamcinolone Acetonide (Kenalog) 1 applic TOP BID PRN PRN Reason: dry skin/itch Subjective: Patient seen and chart reviewed. Case discussed with treatment team. Patient is sleeping at time of rounds. MSE below based in part on staff report as well as my last interaction with her. Nursing staff report patient can still be more irritable and demanding in the evening. She often requests PRN Ativan prior to bedtime. Patient has been adherent with medications. Patient slept well overnight with PRN. VSS. Patient is eating well. Start Time: 14:00 Stop Time: 14:20 Mental Status Exam Vitals: Last Vital Signs Temp 97.2 F 10/10/17 16:00 Pulse 82 10/10/17 16:00 Resp 16 10/10/17 16:00 BP 125/61 10/10/17 16:00 Pulse Ox 98 10/10/17 16:00 Height: 1.6 m Weight: 92.4 kg - Mental Status Exam Muscle Strength/Tone: Normal Dressing: Casual Grooming: Fair Attitude: Cooperative Motor Activity: Retardation Eye Contact: Poor Speech: Slowed Volume: Soft Rhythm: Mumbled Orientation: Oriented X4 Mood: Neutral, Other (reports feeling sad sometimes) Affect: Tearful (at times) Rate of Thoughts: Delayed Thought Organization: [employer] Associations: Intact Abstract Reasoning: Poor abstract reasoning Thought Content: Somatic Concerns Perception/Psychotic: Psychotic Current Hallucinations: Auditory (decreasing per patient report) Language: Naming Impaired Fund of Knowledge: Poor fund of knowledge Memory: Poor-immediate, Poor-recent Suicidal Ideation: Denies Homicidal Ideation: Denies Insight: Poor Judgement: Poor Impulse Control: Fair - Laboratory Result Diagrams: 10/08/17 06:45 10/08/17 06:45 Laboratory Results - last 24 hr 10/09/17 10/10/17 10/10/17 21:34 10:29 14:26 Glucometer 149 121 183 Assessment and Plan (1) Unspecified schizophrenia, chronic condition with acute exacerbation Problem details: Other medical conditions: Acute abdominal pain - resolved Epigastric abdominal mass Delusions and increasing somatic complaints following recent lumpectomy Cough-? acute vs chronic vs acute on chronic Dry skin Dementia Hypertension Diabetes mellitus type 2 GERD Overactive bladder Hyperlipidemia Rosacea Hypothyroidism Breast cancer Allergic rhinitis Current visit: Yes Status: Acute Start Depakote DR 250mg PO at dinnertime; monitor response. Hospital Course Summary Disclaimer: The visit summary below is not to be considered part of the above Progress Note. Hospital Course: 09/29/17 Hospitalist initial consultation: Agree with admission to [facility] for psych evaluation and management and to provide a safe environment. In regard to her cough, will order PRN cough drops and Robitussin. Monitor for fever or increasing symptoms. It sounds like this is a chronic problem for her. No evidence of obvious infection at this time. Continue metformin and insulin for blood sugar control. Based on a hemoglobin of 7.0 and her recent blood sugars all greater than 180, will increase her Lantus from 12 units to 15 units daily at bedtime. Continue Accu-Cheks. Cetaphil moisturizing lotion for dry skin daily with triamcinolone acetonide cream PRN itch. We will continue to manage patient medically throughout her stay. Thank you for the consult. 09/30/17 Psych: Pt is more alert today. She is pleasant and does not appear to be responding to internal stimuli. Continue current care 10/01/17 Hospitalist: Nurse's notes, psychiatric notes, labs and vitals reviewed Sugars are still elevated, increase Lantus to 17 units daily at bedtime. Continue Accu-Cheks. Patient appears medically stable. No other concerns at this time. 10/02/17 Psych: Will change timing of Risperdal to 0.5mg PO q AM and 1mg PO q 1600 to target sundowning; monitor behavior tonight - may need additional medication to target sundowning behaviors/irritability. 10/02/17 Hospitalist Check CBC, BMP, liver panel, UA, complete abdominal US for evaluation of her pain and hepatomegaly. At present, patient is comfortable and resting, no pain medication needed. Make NPO. Case discussed with Dr. Jewell. Treatment plan to be determined after US is resulted. 10/03/17 Hospitalist Abdominal ultrasound was essentially negative other than hepatic steatosis. Labs are normal. She continues to have an obviously palpable mass in epigastric region, however, her pain has resolved and I don't believe her pain was related to this, suspected it was related. She may have the mass worked up on an OP basis. She's been started on simethicone for her gas pains. 10/03/17 Psych: Plan to increase Risperdal to 1mg PO BID; monitor mood, behavior and response. 10/04/17 Psych: Will increase Risperdal to 1mg PO TID to see if this helps with psychosis/delusions, or if it may be contributing to restlessness. May consider addition of Depakote, whether patient may in fact have schizoaffective disorder , bipolar type. Will also request overnight oximetry. Plan - 10/05/17. Savanna continues to have episodes of restlessness. Continue psychiatric care per Dr. Waters. Continue to provide safe and supportive environment. She denies any acute pain or concerns on exam. Appetite is stable and bowels are moving. Blood pressure noted to be elevated with average systolic pressure around 150. Will increase Norvasc to 10mg daily and continue to monitor blood pressure closely. Blood sugars remain elevated and variable. Extensive review of BGM trends was done. Will increase Lantus to 18 units QHS and continue to monitor closely. Continue home metformin and sliding scale insulin as indicated. Dr. Waters expressed concern for sleep apnea. Will obtain night oximetry tonight for results to be reviewed tomorrow. Continue care plan. 10/06/17- Psych- SOme issues with sleep but no behaviors. Continue current care 10/07/17- Psych- Pt doing fairly well. Continue current care Plan - 10/07/17. Savanna complains of severe right ear pain and exam is consistent with otitis externa. In light of uncontrolled diabetes, will cover for pseudomonas. Initiate Ciprodex 4 drop right ear BID through 10/14/17. Abscess to left upper, medial groin I&D on 10/07/17. Patient tolerated well. Culture obtained with results pending. Suspect MRSA. Initiate Clindamycin 300mg TID through 10/17/17. Lactobacillius to assist with possible GI upset associated with Clinda. Monitor patient closely for signs of yeast infections. Anticipate improvement of pustular lesions on abdomen as well as mild folliculitis to groin with Clindamycin. If abdominal pustules persist following treatment with clindamycin, may consider addition of fungal component. Maintain good hand hygiene given suspicion of MRSA. Bactroban to each nostril BID for treatment of suspected colonization. Blood sugars noted to be elevated at night >200, requiring sliding scale insulin each night. Home medications include Metformin 1000mg BID and Lantus 12 units QHS. Throughout her admission, lantus has slowly be increased with better control. Continue current dose at 18 units QHS. Will increase frequency of BGMs for better evaluation of blood sugar trends to assist in management for optimum control. May need to initiate TID insulin once trends are evaluated. A1c 7% on admission. Consider consult to Dr. Cuellar for additional assistance with medication adjustments for DM. Blood pressure improved with increase of Norvasc to 10mg daily on 10/06/17. Continue to monitor. Behaviors appear to be improving and stable. Continue psychiatric care per Dr. Waters. Continue to provide safe and supportive environment. Recheck labs in AM to monitor blood counts, electrolytes and renal function given recent medication changes. Allow abscess to drain and keep area clean and dry. Warm compresses Q2-3 hours as tolerated. Avoid excess pressure to area and wear loose fitting clothing. 10/10/17 Psych: Start Depakote DR 250mg PO at dinnertime; monitor response.
[2017-10-10] MEDS ORDERED: DIVALPROEX 250 MG TABLET PO SCH (18:00)
[2017-10-10] MEDS: INSULIN GLARGINE 100unit/ml INJECTION SQ SCH (20:19)
[2017-10-10] MEDS: INSULIN ASPART 100unit/ml INJECTION SQ PRN (20:22)
[2017-10-10] MEDS: TRAMADOL 50 MG TABLET PO PRN (22:04)
[2017-10-10] MEDS: MAG-AL + SIM ORAL LIQUID 30ml PO PRN (22:18)
[2017-10-10] MEDS: ACETAMINOPHEN 325 MG TABLET PO PRN (22:49)
[2017-10-11] MEDS: MAGNESIUM OXIDE 400 MG TABLET PO SCH ×2 (05:56→17:08)
[2017-10-11] MEDS: LEVOTHYROXINE 137 MCG TABLET PO SCH (05:56)
[2017-10-11] MEDS: FERROUS SULFATE 324 MG TABLET PO SCH (09:24)
[2017-10-11] MEDS: LACTOBACILLUS (15B cfu) CAPSULE PO SCH ×3 (09:25→17:09)
[2017-10-11] MEDS: METFORMIN 1,000 MG TABLET PO SCH ×2 (09:27→17:09)
[2017-10-11] MEDS: RisperiDONE 1 MG TABLET PO SCH ×3 (09:28→20:01)
[2017-10-11] MEDS: AMLODIPINE 10 MG TABLET PO SCH (09:28)
[2017-10-11] MEDS: CIPROFLOXACIN RIGHT EAR SCH ×2 (09:29→20:00)
[2017-10-11] MEDS: [UNRECOGNIZED DRUG - OTHER] RIGHT EAR SCH ×2 (09:29→20:00)
[2017-10-11] MEDS: LISINOPRIL 40 MG TABLET PO SCH (09:31)
[2017-10-11] MEDS: LETROZOLE 2.5 MG TABLET PO SCH (09:31)
[2017-10-11] MEDS: MUPIROCIN 2% OINTMENT 22gm EA NOSTRIL SCH ×2 (09:32→20:00)
[2017-10-11] MEDS: TRIAMCINOLONE 0.1% CREAM 15 G TUBE TOP SCH (09:33)
--- NOTE | 2017-10-11 09:34 | Progress Note ---
- Date 10/11/17 Subjective: Patient is seen lying in bed. Nurses have no current concerns. She had I&D of an abscess in the perineal region several days ago. She is on clindamycin. She' s had no complaints of any pain or problems in this area. No fever. Objective Vital signs: Temperature 97.9 F 10/10/17 22:25 Pulse Rate 87 10/10/17 22:25 Respiratory Rate 16 10/10/17 22:25 Blood Pressure 132/59 10/10/17 22:25 Pulse Oximetry 92 10/10/17 22:25 Height/Weight/BMI: Height 1.6 m Weight 92.4 kg Body Mass Index 35.7 - Constitutional Present: no acute distress, obese - Routine HEENT Exam Head: Present: normocephalic - Routine Respiratory Exam Present: CTA bilaterally - Routine Cardiovascular Exam Present: RRR, murmur - Routine Abdominal Exam Present: soft - Routine Exam Comments: Area of abscess is completely healed. There is no open wound, redness or swelling. - Routine Skin Exam Comments: Scarring and scabbing to the face and abdomen-chronic Results - Labs CBC & Chem 7: 10/08/17 06:45 10/08/17 06:45 Microbiology Results: Microbiology 10/07/17 19:41 Groin Gram Stain - Final 10/07/17 19:41 Groin Abscess Culture - Final Strep agalactiae - (Group B) Anaerobic Gram-Negative Vladimir Streptococcus viridans group Other Dora Observed Assessment and Plan (1) Acute psychosis Current visit: Yes Status: Acute Assessment and Plan: Assessment Acute abdominal pain - resolved Epigastric abdominal mass Delusions and increasing somatic complaints following recent lumpectomy Cough-? acute vs chronic vs acute on chronic Dry skin Dementia Hypertension Diabetes mellitus type 2 - uncontrolled. GERD Schizophrenia Bipolar disorder Overactive bladder Hyperlipidemia Rosacea Hypothyroidism Breast cancer Allergic rhinitis Left perineal abscess with I&D 10/07/17 -resolved Plan DC clindamycin as the area of abscess is completely healed with no sign of infection whatsoever. Vitals, labs, and nurse's notes and psychiatric notes reviewed. Patient appears stable. - Physician Narrative Narrative: Date: 10/11/17 Time: 928 Hospital Course Summary Disclaimer: The visit summary below is not to be considered part of the above Progress Note. Hospital Course: 09/29/17 Hospitalist initial consultation: Agree with admission to [facility] for psych evaluation and management and to provide a safe environment. In regard to her cough, will order PRN cough drops and Robitussin. Monitor for fever or increasing symptoms. It sounds like this is a chronic problem for her. No evidence of obvious infection at this time. Continue metformin and insulin for blood sugar control. Based on a hemoglobin of 7.0 and her recent blood sugars all greater than 180, will increase her Lantus from 12 units to 15 units daily at bedtime. Continue Accu-Cheks. Cetaphil moisturizing lotion for dry skin daily with triamcinolone acetonide cream PRN itch. We will continue to manage patient medically throughout her stay. Thank you for the consult. 09/30/17 Psych: Pt is more alert today. She is pleasant and does not appear to be responding to internal stimuli. Continue current care 10/01/17 Hospitalist: Nurse's notes, psychiatric notes, labs and vitals reviewed Sugars are still elevated, increase Lantus to 17 units daily at bedtime. Continue Accu-Cheks. Patient appears medically stable. No other concerns at this time. 10/02/17 Psych: Will change timing of Risperdal to 0.5mg PO q AM and 1mg PO q 1600 to target sundowning; monitor behavior tonight - may need additional medication to target sundowning behaviors/irritability. 10/02/17 Hospitalist Check CBC, BMP, liver panel, UA, complete abdominal US for evaluation of her pain and hepatomegaly. At present, patient is comfortable and resting, no pain medication needed. Make NPO. Case discussed with Dr. Jewell. Treatment plan to be determined after US is resulted. 10/03/17 Hospitalist Abdominal ultrasound was essentially negative other than hepatic steatosis. Labs are normal. She continues to have an obviously palpable mass in epigastric region, however, her pain has resolved and I don't believe her pain was related to this, suspected it was related. She may have the mass worked up on an OP basis. She's been started on simethicone for her gas pains. 10/03/17 Psych: Plan to increase Risperdal to 1mg PO BID; monitor mood, behavior and response. 10/04/17 Psych: Will increase Risperdal to 1mg PO TID to see if this helps with psychosis/delusions, or if it may be contributing to restlessness. May consider addition of Depakote, whether patient may in fact have schizoaffective disorder , bipolar type. Will also request overnight oximetry. Plan - 10/05/17. Savanna continues to have episodes of restlessness. Continue psychiatric care per Dr. Waters. Continue to provide safe and supportive environment. She denies any acute pain or concerns on exam. Appetite is stable and bowels are moving. Blood pressure noted to be elevated with average systolic pressure around 150. Will increase Norvasc to 10mg daily and continue to monitor blood pressure closely. Blood sugars remain elevated and variable. Extensive review of BGM trends was done. Will increase Lantus to 18 units QHS and continue to monitor closely. Continue home metformin and sliding scale insulin as indicated. Dr. Waters expressed concern for sleep apnea. Will obtain night oximetry tonight for results to be reviewed tomorrow. Continue care plan. 10/06/17- Psych- SOme issues with sleep but no behaviors. Continue current care 10/07/17- Psych- Pt doing fairly well. Continue current care 10/07/17-hospitalist Savanna complains of severe right ear pain and exam is consistent with otitis externa. In light of uncontrolled diabetes, will cover for pseudomonas. Initiate Ciprodex 4 drop right ear BID through 10/14/17. Abscess to left upper, medial groin I&D on 10/07/17. Patient tolerated well. Culture obtained with results pending. Suspect MRSA. Initiate Clindamycin 300mg TID through 10/17/17. Lactobacillius to assist with possible GI upset associated with Clinda. Monitor patient closely for signs of yeast infections. Anticipate improvement of pustular lesions on abdomen as well as mild folliculitis to groin with Clindamycin. If abdominal pustules persist following treatment with clindamycin, may consider addition of fungal component. Maintain good hand hygiene given suspicion of MRSA. Bactroban to each nostril BID for treatment of suspected colonization. Blood sugars noted to be elevated at night >200, requiring sliding scale insulin each night. Home medications include Metformin 1000mg BID and Lantus 12 units QHS. Throughout her admission, lantus has slowly be increased with better control. Continue current dose at 18 units QHS. Will increase frequency of BGMs for better evaluation of blood sugar trends to assist in management for optimum control. May need to initiate TID insulin once trends are evaluated. A1c 7% on admission. Consider consult to Dr. Cuellar for additional assistance with medication adjustments for DM. Blood pressure improved with increase of Norvasc to 10mg daily on 10/06/17. Continue to monitor. Behaviors appear to be improving and stable. Continue psychiatric care per Dr. Waters. Continue to provide safe and supportive environment. Recheck labs in AM to monitor blood counts, electrolytes and renal function given recent medication changes. Allow abscess to drain and keep area clean and dry. Warm compresses Q2-3 hours as tolerated. Avoid excess pressure to area and wear loose fitting clothing. 10/11/17-hospitalist DC clindamycin as the area of abscess is completely healed with no sign of infection whatsoever. Vitals, labs, and nurse's notes and psychiatric notes reviewed. Patient appears stable.
[2017-10-11] MEDS: CLINDAMYCIN 300 MG CAPSULE PO SCH (09:39)
[2017-10-11] MEDS: INSULIN ASPART 100unit/ml INJECTION SQ PRN ×3 (10:42→19:50)
[2017-10-11] MEDS: MENTHOL COUGH DROPS (RICOLA) MM PRN ×2 (13:08→23:55)
--- NOTE | 2017-10-11 14:26 | Neuropsych Progress Note ---
[facility] Subjective Date: 10/11/17 - Sujective/Severity of Illness Medications: Acetaminophen (Tylenol) 650 mg PO Q4H PRN PRN Reason: Pain Last Admin: 10/10/17 22:49 Dose: 650 mg Al Hydroxide/Mg Hydroxide (Maalox Plus) 30 ml PO Q6H PRN PRN Reason: Indigestion Last Admin: 10/10/17 22:18 Dose: 30 ml Amlodipine Besylate (Norvasc) 10 mg PO DAILY [facility] Last Admin: 10/11/17 09:28 Dose: 10 mg Ciprofloxacin (Ciprodex) 4 drop RIGHT EAR BID [facility] Stop: 10/14/17 23:59 Last Admin: 10/11/17 09:29 Dose: 4 drop Divalproex Sodium (Depakote) 250 mg PO 21 FABIOLA Ferrous Sulfate (Feosol) 324 mg PO WB [facility] Last Admin: 10/11/17 09:24 Dose: 324 mg Guaifenesin (Robitussin Liq) 400 mg PO Q6H PRN PRN Reason: Cough /Congestion Last Admin: 10/09/17 08:20 Dose: 400 mg Haloperidol (Haldol) 0.5 mg PO Q6H PRN PRN Reason: Extreme agitation Last Admin: 10/05/17 23:59 Dose: 0.5 mg Haloperidol Lactate (Haldol) 0.5 mg IM Q6H PRN PRN Reason: Extreme agitation Last Admin: 10/04/17 02:42 Dose: 0.5 mg Insulin Aspart (Novolog) 1 - 5 unit SQ SS PRN; Protocol PRN Reason: Hyperglycemia Last Admin: 10/11/17 10:42 Dose: 3 unit Insulin Glargine (Lantus) 18 unit SQ HS [facility] Last Admin: 10/10/17 20:19 Dose: 18 unit Lactobacillus Acidophilus (Culturelle) 2 cap PO TIDWM [facility] Last Admin: 10/11/17 13:07 Dose: 2 cap Letrozole (Femara) 2.5 mg PO DAILY [facility] Last Admin: 10/11/17 09:31 Dose: 2.5 mg Levothyroxine Sodium (Synthroid) 137 mcg PO ACB [facility] Last Admin: 10/11/17 05:56 Dose: 137 mcg Lisinopril (Prinivil) 40 mg PO DAILY [facility] Last Admin: 10/11/17 09:31 Dose: 40 mg Lorazepam (Ativan) 0.5 mg PO Q6H PRN PRN Reason: Extreme agitation Last Admin: 10/08/17 21:28 Dose: 0.5 mg Lorazepam (Ativan Inj) 0.5 mg IM Q6H PRN PRN Reason: Extreme agitation Last Admin: 10/10/17 00:50 Dose: 0.5 mg Magnesium Hydroxide (Mom) 30 ml PO DAILY PRN PRN Reason: Constipation Magnesium Oxide (Magox) 400 mg PO ACBID [facility] Last Admin: 10/11/17 05:56 Dose: 400 mg Menthol (Ricola Sf) 1 lozenge MM PRN PRN PRN Reason: Cough Last Admin: 10/11/17 13:08 Dose: 1 lozenge Metformin HCl (Glucophage) 1,000 mg PO BIDWM [facility] Last Admin: 10/11/17 09:27 Dose: 1,000 mg Mupirocin (Bactroban Ointmment) 1 applic EA NOSTRIL BID [facility] Stop: 10/12/17 09:01 Last Admin: 10/11/17 09:32 Dose: 1 applic Nystatin (Mycostatin) 1 applic TP PRN PRN PRN Reason: iritation Last Admin: 10/02/17 22:01 Dose: 1 applic Oxybutynin Chloride (Ditropan) 10 mg PO HS [facility] Last Admin: 10/10/17 20:21 Dose: 10 mg Potassium Chloride (K-Dur 20 Meq Tablet) 20 meq PO TIDWM [facility] Last Admin: 10/11/17 13:08 Dose: 20 meq Risperidone (Risperdal) 1 mg PO 08,16 [facility] Last Admin: 10/11/17 09:28 Dose: 1 mg Risperidone (Risperdal) 1 mg PO 21 [facility] Last Admin: 10/10/17 20:21 Dose: 1 mg Simethicone (Phazyme) 125 mg PO Q6HR PRN Tramadol HCl (Ultram) 25 mg PO QID PRN PRN Reason: Pain Last Admin: 10/10/17 22:04 Dose: 25 mg Triamcinolone Acetonide (Kenalog) 1 applic TOP DAILY [facility] Last Admin: 10/11/17 09:33 Dose: 1 applic Triamcinolone Acetonide (Kenalog) 1 applic TOP BID PRN PRN Reason: dry skin/itch Subjective: Patient seen and chart reviewed. Case discussed with treatment team. On interview, patient is pleasant and reports being in a good mood. She still worries that it takes too long to fall asleep at night. Patient denies any SI or HI. She does not appear to be responding to internal stimuli during interview and has reported voices are much improved from admission. Patient denies any adverse side effects related to psychotropic medications. Nursing staff report patient as pleasant with no significant behavioral difficulties in the past 24 hours. Patient has been adherent with medications. Patient slept well overnight. VSS. Patient is eating well. Psychotropic PRNs required in the past 24 hours: none. Start Time: 08:20 Stop Time: 08:40 Mental Status Exam Vitals: Last Vital Signs Temp 98.1 F 10/11/17 08:00 Pulse 101 H 10/11/17 08:00 Resp 24 10/11/17 08:00 BP 156/69 H 10/11/17 08:00 Pulse Ox 91 10/11/17 08:00 Height: 1.6 m Weight: 92.4 kg - Mental Status Exam Muscle Strength/Tone: Normal Dressing: Casual Grooming: Fair Attitude: Cooperative Motor Activity: Retardation Eye Contact: Poor Speech: Slowed Volume: Soft Rhythm: Mumbled Orientation: Oriented X4 Mood: Neutral Affect: Relaxed Rate of Thoughts: Delayed Thought Organization: [employer]: Intact Abstract Reasoning: Poor abstract reasoning Thought Content: Somatic Concerns Perception/Psychotic: Psychotic Current Hallucinations: Auditory (significantly decreased from admission) Language: Naming Impaired Fund of Knowledge: Poor fund of knowledge Memory: Poor-immediate, Poor-recent Suicidal Ideation: Denies Homicidal Ideation: Denies Insight: Limited Judgement: Limited Impulse Control: Fair - Laboratory Result Diagrams: 10/08/17 06:45 10/08/17 06:45 Laboratory Results - last 24 hr 10/10/17 10/11/17 10/11/17 14:26 06:02 10:30 Glucometer 183 139 257 Assessment and Plan (1) Unspecified schizophrenia, chronic condition with acute exacerbation Problem details: Other medical conditions: Acute abdominal pain - resolved Epigastric abdominal mass Delusions and increasing somatic complaints following recent lumpectomy Cough-? acute vs chronic vs acute on chronic Dry skin Dementia Hypertension Diabetes mellitus type 2 GERD Overactive bladder Hyperlipidemia Rosacea Hypothyroidism Breast cancer Allergic rhinitis Current visit: Yes Status: Acute Discontinue Cymbalta. [facility] Plan for discharge back to LTC facility tomorrow if all goes well. Hospital Course Summary Disclaimer: The visit summary below is not to be considered part of the above Progress Note. Hospital Course: 09/29/17 Hospitalist initial consultation: Agree with admission to [facility] for psych evaluation and management and to provide a safe environment. In regard to her cough, will order PRN cough drops and Robitussin. Monitor for fever or increasing symptoms. It sounds like this is a chronic problem for her. No evidence of obvious infection at this time. Continue metformin and insulin for blood sugar control. Based on a hemoglobin of 7.0 and her recent blood sugars all greater than 180, will increase her Lantus from 12 units to 15 units daily at bedtime. Continue Accu-Cheks. Cetaphil moisturizing lotion for dry skin daily with triamcinolone acetonide cream PRN itch. We will continue to manage patient medically throughout her stay. Thank you for the consult. 09/30/17 Psych: Pt is more alert today. She is pleasant and does not appear to be responding to internal stimuli. Continue current care 10/01/17 Hospitalist: Nurse's notes, psychiatric notes, labs and vitals reviewed Sugars are still elevated, increase Lantus to 17 units daily at bedtime. Continue Accu-Cheks. Patient appears medically stable. No other concerns at this time. 10/02/17 Psych: Will change timing of Risperdal to 0.5mg PO q AM and 1mg PO q 1600 to target sundowning; monitor behavior tonight - may need additional medication to target sundowning behaviors/irritability. 10/02/17 Hospitalist Check CBC, BMP, liver panel, UA, complete abdominal US for evaluation of her pain and hepatomegaly. At present, patient is comfortable and resting, no pain medication needed. Make NPO. Case discussed with Dr. Jewell. Treatment plan to be determined after US is resulted. 10/03/17 Hospitalist Abdominal ultrasound was essentially negative other than hepatic steatosis. Labs are normal. She continues to have an obviously palpable mass in epigastric region, however, her pain has resolved and I don't believe her pain was related to this, suspected it was related. She may have the mass worked up on an OP basis. She's been started on simethicone for her gas pains. 10/03/17 Psych: Plan to increase Risperdal to 1mg PO BID; monitor mood, behavior and response. 10/04/17 Psych: Will increase Risperdal to 1mg PO TID to see if this helps with psychosis/delusions, or if it may be contributing to restlessness. May consider addition of Depakote, whether patient may in fact have schizoaffective disorder , bipolar type. Will also request overnight oximetry. Plan - 10/05/17. Savanna continues to have episodes of restlessness. Continue psychiatric care per Dr. Waters. Continue to provide safe and supportive environment. She denies any acute pain or concerns on exam. Appetite is stable and bowels are moving. Blood pressure noted to be elevated with average systolic pressure around 150. Will increase Norvasc to 10mg daily and continue to monitor blood pressure closely. Blood sugars remain elevated and variable. Extensive review of BGM trends was done. Will increase Lantus to 18 units QHS and continue to monitor closely. Continue home metformin and sliding scale insulin as indicated. Dr. Waters expressed concern for sleep apnea. Will obtain night oximetry tonight for results to be reviewed tomorrow. Continue care plan. 10/06/17- Psych- SOme issues with sleep but no behaviors. Continue current care 10/07/17- Psych- Pt doing fairly well. Continue current care Plan - 10/07/17. Savanna complains of severe right ear pain and exam is consistent with otitis externa. In light of uncontrolled diabetes, will cover for pseudomonas. Initiate Ciprodex 4 drop right ear BID through 10/14/17. Abscess to left upper, medial groin I&D on 10/07/17. Patient tolerated well. Culture obtained with results pending. Suspect MRSA. Initiate Clindamycin 300mg TID through 10/17/17. Lactobacillius to assist with possible GI upset associated with Clinda. Monitor patient closely for signs of yeast infections. Anticipate improvement of pustular lesions on abdomen as well as mild folliculitis to groin with Clindamycin. If abdominal pustules persist following treatment with clindamycin, may consider addition of fungal component. Maintain good hand hygiene given suspicion of MRSA. Bactroban to each nostril BID for treatment of suspected colonization. Blood sugars noted to be elevated at night >200, requiring sliding scale insulin each night. Home medications include Metformin 1000mg BID and Lantus 12 units QHS. Throughout her admission, lantus has slowly be increased with better control. Continue current dose at 18 units QHS. Will increase frequency of BGMs for better evaluation of blood sugar trends to assist in management for optimum control. May need to initiate TID insulin once trends are evaluated. A1c 7% on admission. Consider consult to Dr. Cuellar for additional assistance with medication adjustments for DM. Blood pressure improved with increase of Norvasc to 10mg daily on 10/06/17. Continue to monitor. Behaviors appear to be improving and stable. Continue psychiatric care per Dr. Waters. Continue to provide safe and supportive environment. Recheck labs in AM to monitor blood counts, electrolytes and renal function given recent medication changes. Allow abscess to drain and keep area clean and dry. Warm compresses Q2-3 hours as tolerated. Avoid excess pressure to area and wear loose fitting clothing. 10/10/17 Psych: Start Depakote DR 250mg PO at dinnertime; monitor response. 10/11/17 Psych: Discontinue Cymbalta. Will move Depakote to HS to help with sleep. Plan for discharge back to LTC facility tomorrow if all goes well.
--- NOTE | 2017-10-11 14:36 | Extended Care Facility Orders ---
Admission Orders Admit to:: [facility] Allergies/Adverse Reactions: Allergies amoxicillin Allergy (Verified 09/28/17 12:11) clavulanic acid [From Augmentin] Allergy (Verified 09/28/17 12:11) Penicillins Allergy (Verified 09/28/17 12:11) Sulfa (Sulfonamide Antibiotics) Allergy (Verified 09/28/17 12:11) trifluoperazine Allergy (Verified 09/28/17 12:11) Admitting Diagnosis: Psychosis Admitting Physician: Anastasia Waters MD Attending Physician: Anastasia Waters MD Code Status: Full Code Diet: 10/03/17 Lunch Consistent Carbohydrate Diet [DIET] Calorie Level: 1999 May use Facility Protocol or Standing Orders: Yes May have flu vaccine: Yes Evaluations/Treatment: Psychiatric, as needed Correction Certification: I certify that SNF services are required to be given on an Inpatient basis because of the patients need for senior care care on a continuing basis for the condition(s) for which he/she received inpatient hospital services prior to his/her transfer to the SNF. SNF inpatient care is necessary for the following reasons Indication for Correction: Not Applicable - Additional Information In Event of Arrest: Start CPR,call 911,send patient to the ER Referrals: Malcolm Rose MD [Other] (Dr. Gisselle Rose will see patient on rounds at the facility for Hosp. follow-up. [phone]. Patient will be seen on rounds for Mental Health follow-up.)
--- NOTE | 2017-10-11 14:38 | Neuropsychiatric Disch Summary ---
Discharge Information Date of admission: 09/28/17 15:05 Anticipated date of discharge: 10/12/17 Attending Physician: Anastasia Waters MD Primary care physician: Montez Rose MD Consults: 09/28/17 15:39 Case Management Consult [CONS] Routine Reason For Exam: Optimization of medical comorbidities Physician Consult [CONS] Routine Consulting Provider: Femi Jewell Reason For Exam: Optimization of medical comorbidities Ordering Provider has Notified Utility Worker Production: No Comment: Nursing - please notify 10/01/17 15:22 Communications Senior Associate Consult [CONS] Routine - Discharge Diagnosis (1) Unspecified schizophrenia, chronic condition with acute exacerbation Status: Acute Unspecified schizophrenia spectrum and other psychotic disorders R/O Schizoaffective disorder, depressive type - Laboratory Labs: 10/08/17 06:45 10/08/17 06:45 - Microbiology Microbiology 10/07/17 19:41 Groin Gram Stain - Final 10/07/17 19:41 Groin Abscess Culture - Final Strep agalactiae - (Group B) Anaerobic Gram-Negative Vladimir Streptococcus viridans group Other Dora Observed Date of Admission: 09/28/17 15:05 History of Present Illness: 76 Y/O CF with a long hx of mental illness sent from a [facility] for increasing paranoia and delusions. alf reports since July the pt has been more irritable with mood fluctuations. She has been delusional believing she is . On face to face the pt is sleepy and some what hard to arouse. She is not a great historian. She does admit her mind has been playing tricks on her but is not able to elaborate. Denies S/I. STRESSORS: alf staff reports the pt had a lumpectomy in July and symptoms started shortly after. PSYCH ROS: Pt is sleepy and nursing reports mood fluctuations with tearfulness at times. Pt is not able to describe her mood at this time. She denies feeling anxious. She states she has had AH but again is not able to elaborate. PAST PSYCH: Unclear at this time. Pt states she been admitted to [facility] approximately 4-5 times but this is unconfirmed. She is currently on Risperdal and Cymbalta. Hospital Course This is a general summary of the patient's hospital course. For more details refer to the complete medical record. Hospital course: 09/29/17 Hospitalist initial consultation: Agree with admission to [facility] for psych evaluation and management and to provide a safe environment. In regard to her cough, will order PRN cough drops and Robitussin. Monitor for fever or increasing symptoms. It sounds like this is a chronic problem for her. No evidence of obvious infection at this time. Continue metformin and insulin for blood sugar control. Based on a hemoglobin of 7.0 and her recent blood sugars all greater than 180, will increase her Lantus from 12 units to 15 units daily at bedtime. Continue Accu-Cheks. Cetaphil moisturizing lotion for dry skin daily with triamcinolone acetonide cream PRN itch. We will continue to manage patient medically throughout her stay. Thank you for the consult. 09/30/17 Psych: Pt is more alert today. She is pleasant and does not appear to be responding to internal stimuli. Continue current care 10/01/17 Hospitalist: Nurse's notes, psychiatric notes, labs and vitals reviewed Sugars are still elevated, increase Lantus to 17 units daily at bedtime. Continue Accu-Cheks. Patient appears medically stable. No other concerns at this time. 10/02/17 Psych: Will change timing of Risperdal to 0.5mg PO q AM and 1mg PO q 1600 to target sundowning; monitor behavior tonight - may need additional medication to target sundowning behaviors/irritability. 10/02/17 Hospitalist Check CBC, BMP, liver panel, UA, complete abdominal US for evaluation of her pain and hepatomegaly. At present, patient is comfortable and resting, no pain medication needed. Make NPO. Case discussed with Dr. Jewell. Treatment plan to be determined after US is resulted. 10/03/17 Hospitalist Abdominal ultrasound was essentially negative other than hepatic steatosis. Labs are normal. She continues to have an obviously palpable mass in epigastric region, however, her pain has resolved and I don't believe her pain was related to this, suspected it was related. She may have the mass worked up on an OP basis. She's been started on simethicone for her gas pains. 10/03/17 Psych: Plan to increase Risperdal to 1mg PO BID; monitor mood, behavior and response. 10/04/17 Psych: Will increase Risperdal to 1mg PO TID to see if this helps with psychosis/delusions, or if it may be contributing to restlessness. May consider addition of Depakote, whether patient may in fact have schizoaffective disorder , bipolar type. Will also request overnight oximetry. Plan - 10/05/17. Savanna continues to have episodes of restlessness. Continue psychiatric care per Dr. Waters. Continue to provide safe and supportive environment. She denies any acute pain or concerns on exam. Appetite is stable and bowels are moving. Blood pressure noted to be elevated with average systolic pressure around 150. Will increase Norvasc to 10mg daily and continue to monitor blood pressure closely. Blood sugars remain elevated and variable. Extensive review of BGM trends was done. Will increase Lantus to 18 units QHS and continue to monitor closely. Continue home metformin and sliding scale insulin as indicated. Dr. Waters expressed concern for sleep apnea. Will obtain night oximetry tonight for results to be reviewed tomorrow. Continue care plan. 10/06/17- Psych- SOme issues with sleep but no behaviors. Continue current care 10/07/17- Psych- Pt doing fairly well. Continue current care Plan - 10/07/17. Savanna complains of severe right ear pain and exam is consistent with otitis externa. In light of uncontrolled diabetes, will cover for pseudomonas. Initiate Ciprodex 4 drop right ear BID through 10/14/17. Abscess to left upper, medial groin I&D on 10/07/17. Patient tolerated well. Culture obtained with results pending. Suspect MRSA. Initiate Clindamycin 300mg TID through 10/17/17. Lactobacillius to assist with possible GI upset associated with Clinda. Monitor patient closely for signs of yeast infections. Anticipate improvement of pustular lesions on abdomen as well as mild folliculitis to groin with Clindamycin. If abdominal pustules persist following treatment with clindamycin, may consider addition of fungal component. Maintain good hand hygiene given suspicion of MRSA. Bactroban to each nostril BID for treatment of suspected colonization. Blood sugars noted to be elevated at night >200, requiring sliding scale insulin each night. Home medications include Metformin 1000mg BID and Lantus 12 units QHS. Throughout her admission, lantus has slowly be increased with better control. Continue current dose at 18 units QHS. Will increase frequency of BGMs for better evaluation of blood sugar trends to assist in management for optimum control. May need to initiate TID insulin once trends are evaluated. A1c 7% on admission. Consider consult to Dr. Cuellar for additional assistance with medication adjustments for DM. Blood pressure improved with increase of Norvasc to 10mg daily on 10/06/17. Continue to monitor. Behaviors appear to be improving and stable. Continue psychiatric care per Dr. Waters. Continue to provide safe and supportive environment. Recheck labs in AM to monitor blood counts, electrolytes and renal function given recent medication changes. Allow abscess to drain and keep area clean and dry. Warm compresses Q2-3 hours as tolerated. Avoid excess pressure to area and wear loose fitting clothing. 10/10/17 Psych: Start Depakote DR 250mg PO at dinnertime; monitor response. 10/11/17 Psych: Discontinue Cymbalta. Will move Depakote to HS to help with sleep. Plan for discharge back to LTC facility tomorrow if all goes well. Discharge Plan - Med Rec/Dispo Referrals/Follow Up: Malcolm Rose MD [Other] (Dr. Giseslle Rose will see patient on rounds at the facility for Hosp. follow-up. [phone]. Patient will be seen on rounds for Mental Health follow-up.) Additional Instructions: Discharge Diagnosis: IN CASE OF PSYCHIATRIC EMERGENCY, CONTACT GENERATIONS STAFF AT [phone] ( available 24 hrs daily). Prescriptions: New RisperiDONE [RisperDAL] 1 mg PO 21 tab RisperiDONE [RisperDAL] 1 mg PO 08,16 tab Divalproex [Depakote] 250 mg PO 21 tab Discontinued risperiDONE [Risperidone] 1 mg PO HS risperiDONE [Risperidone] 0.5 mg PO QAM LORazepam [Ativan] 0.5 mg PO Q8H PRN PRN Reason: Anxiety/Agitation Duloxetine HCl [Duloxetine HCl] 20 mg PO DAILY No Action CALCIUM CARBONATE Chewable [Tums] 1,000 mg PO Q6H PRN PRN Reason: Indigestion Tramadol [Ultram] 25 mg PO QID PRN PRN Reason: Pain Acetaminophen 650 mg PO Q4H PRN PRN Reason: Pain Magnesium Hydroxide [Milk of Magnesia] 30 ml PO DAILY PRN PRN Reason: Constipation Oxybutynin Chloride [Oxybutynin Chloride ER] 10 mg PO HS Lisinopril [Prinivil] 40 mg PO DAILY Ferrous Sulfate [Iron] 325 mg PO DAILY Magnesium Oxide [Magnesium] 400 mg PO ACBID Metformin HCl [Glucophage] 1,000 mg PO BID Amlodipine [Norvasc] 5 mg PO DAILY Insulin Glargine,Hum.rec.anlog [Lantus Solostar] 12 unit SQ HS Letrozole [Letrozole] 2.5 mg PO DAILY Triamcinolone 0.1% Cream 15 G [Kenalog] 1 applicatio TOP DAILY Levothyroxine Sodium [Levothyroxine Sodium] 137 mcg PO ACB Potassium Chloride [Potassium Chloride] 20 meq PO TID - Disposition 04 To [facility] Home/Facility
[2017-10-11] MEDS: MAG-AL + SIM ORAL LIQUID 30ml PO PRN (17:47)
[2017-10-11] MEDS: INSULIN GLARGINE 100unit/ml INJECTION SQ SCH (20:02)
[2017-10-11] MEDS ORDERED: DIVALPROEX 250 MG TABLET PO SCH (21:00)
[2017-10-11] MEDS: ACETAMINOPHEN 325 MG TABLET PO PRN (22:23)
[2017-10-12] MEDS: LEVOTHYROXINE 137 MCG TABLET PO SCH (09:36)
[2017-10-12] MEDS: LACTOBACILLUS (15B cfu) CAPSULE PO SCH ×2 (09:36→12:38)
[2017-10-12] MEDS: AMLODIPINE 10 MG TABLET PO SCH (09:37)
[2017-10-12] MEDS: MAGNESIUM OXIDE 400 MG TABLET PO SCH (09:37)
[2017-10-12] MEDS: FERROUS SULFATE 324 MG TABLET PO SCH (09:37)
[2017-10-12] MEDS: LISINOPRIL 40 MG TABLET PO SCH (09:37)
[2017-10-12] MEDS: LETROZOLE 2.5 MG TABLET PO SCH (09:37)
[2017-10-12] MEDS: RisperiDONE 1 MG TABLET PO SCH (09:38)
[2017-10-12] MEDS: TRIAMCINOLONE 0.1% CREAM 15 G TUBE TOP SCH (09:38)
[2017-10-12] MEDS: METFORMIN 1,000 MG TABLET PO SCH (09:38)
[2017-10-12] MEDS: [UNRECOGNIZED DRUG - OTHER] RIGHT EAR SCH (09:39)
[2017-10-12] MEDS: CIPROFLOXACIN RIGHT EAR SCH (09:39)
[2017-10-12] MEDS: MUPIROCIN 2% OINTMENT 22gm EA NOSTRIL SCH (09:39)
[2017-10-12 10:56] VITALS: BP 141/65; PULSE 86; RESP 16; TEMP 97.4; O2SAT 100
[2017-10-12] MEDS: INSULIN ASPART 100unit/ml INJECTION SQ PRN (11:25)
--- NOTE | 2017-10-12 11:37 | Progress Note ---
- Date 10/12/17 Subjective: Patient is seen lying in bed. She will be discharged today. She is no longer complaining of ear pain. Objective Vital signs: Temperature 97.4 F 10/12/17 10:55 Pulse Rate 86 10/12/17 10:55 Respiratory Rate 16 10/12/17 10:55 Blood Pressure 141/65 H 10/12/17 10:55 Pulse Oximetry 100 10/12/17 10:55 Height/Weight/BMI: Height 1.6 m Weight 92.4 kg Body Mass Index 35.7 - Constitutional Present: no acute distress - Routine HEENT Exam Head: Present: normocephalic, atraumatic ENT: Present: TM's clear bilaterally Comments: She has some wax in the canals bilaterally. No evidence of swelling or redness or drainage. - Routine Respiratory Exam Absent: dyspnea Results - Labs CBC & Chem 7: 10/08/17 06:45 10/08/17 06:45 Microbiology Results: Microbiology 10/07/17 19:41 Groin Gram Stain - Final 10/07/17 19:41 Groin Abscess Culture - Final Strep agalactiae - (Group B) Anaerobic Gram-Negative Vladimir Streptococcus viridans group Other Dora Observed Assessment and Plan (1) Acute psychosis Current visit: Yes Status: Acute Assessment and Plan: Assessment Acute abdominal pain - resolved Epigastric abdominal mass Right otitis externa-resolved Delusions and increasing somatic complaints following recent lumpectomy Cough-? acute vs chronic vs acute on chronic Dry skin Dementia Hypertension Diabetes mellitus type 2 - uncontrolled. GERD Schizophrenia Bipolar disorder Overactive bladder Hyperlipidemia Rosacea Hypothyroidism Breast cancer Allergic rhinitis Left perineal abscess with I&D 10/07/17 -resolved Plan Discharge medications were reconciled. She does not need to continue on eardrops for otitis as this has resolved. - Physician Narrative Narrative: Date: 10/12/17 Time: 1134 Hospital Course Summary Disclaimer: The visit summary below is not to be considered part of the above Progress Note. Hospital Course: 09/29/17 Hospitalist initial consultation: Agree with admission to [facility] for psych evaluation and management and to provide a safe environment. In regard to her cough, will order PRN cough drops and Robitussin. Monitor for fever or increasing symptoms. It sounds like this is a chronic problem for her. No evidence of obvious infection at this time. Continue metformin and insulin for blood sugar control. Based on a hemoglobin of 7.0 and her recent blood sugars all greater than 180, will increase her Lantus from 12 units to 15 units daily at bedtime. Continue Accu-Cheks. Cetaphil moisturizing lotion for dry skin daily with triamcinolone acetonide cream PRN itch. We will continue to manage patient medically throughout her stay. Thank you for the consult. 09/30/17 Psych: Pt is more alert today. She is pleasant and does not appear to be responding to internal stimuli. Continue current care 10/01/17 Hospitalist: Nurse's notes, psychiatric notes, labs and vitals reviewed Sugars are still elevated, increase Lantus to 17 units daily at bedtime. Continue Accu-Cheks. Patient appears medically stable. No other concerns at this time. 10/02/17 Psych: Will change timing of Risperdal to 0.5mg PO q AM and 1mg PO q 1600 to target sundowning; monitor behavior tonight - may need additional medication to target sundowning behaviors/irritability. 10/02/17 Hospitalist Check CBC, BMP, liver panel, UA, complete abdominal US for evaluation of her pain and hepatomegaly. At present, patient is comfortable and resting, no pain medication needed. Make NPO. Case discussed with Dr. Jewell. Treatment plan to be determined after US is resulted. 10/03/17 Hospitalist Abdominal ultrasound was essentially negative other than hepatic steatosis. Labs are normal. She continues to have an obviously palpable mass in epigastric region, however, her pain has resolved and I don't believe her pain was related to this, suspected it was related. She may have the mass worked up on an OP basis. She's been started on simethicone for her gas pains. 10/03/17 Psych: Plan to increase Risperdal to 1mg PO BID; monitor mood, behavior and response. 10/04/17 Psych: Will increase Risperdal to 1mg PO TID to see if this helps with psychosis/delusions, or if it may be contributing to restlessness. May consider addition of Depakote, whether patient may in fact have schizoaffective disorder , bipolar type. Will also request overnight oximetry. Plan - 10/05/17. Savanna continues to have episodes of restlessness. Continue psychiatric care per Dr. Waters. Continue to provide safe and supportive environment. She denies any acute pain or concerns on exam. Appetite is stable and bowels are moving. Blood pressure noted to be elevated with average systolic pressure around 150. Will increase Norvasc to 10mg daily and continue to monitor blood pressure closely. Blood sugars remain elevated and variable. Extensive review of BGM trends was done. Will increase Lantus to 18 units QHS and continue to monitor closely. Continue home metformin and sliding scale insulin as indicated. Dr. Waters expressed concern for sleep apnea. Will obtain night oximetry tonight for results to be reviewed tomorrow. Continue care plan. 10/06/17- Psych- SOme issues with sleep but no behaviors. Continue current care 10/07/17- Psych- Pt doing fairly well. Continue current care Plan - 10/07/17. Savanna complains of severe right ear pain and exam is consistent with otitis externa. In light of uncontrolled diabetes, will cover for pseudomonas. Initiate Ciprodex 4 drop right ear BID through 10/14/17. Abscess to left upper, medial groin I&D on 10/07/17. Patient tolerated well. Culture obtained with results pending. Suspect MRSA. Initiate Clindamycin 300mg TID through 10/17/17. Lactobacillius to assist with possible GI upset associated with Clinda. Monitor patient closely for signs of yeast infections. Anticipate improvement of pustular lesions on abdomen as well as mild folliculitis to groin with Clindamycin. If abdominal pustules persist following treatment with clindamycin, may consider addition of fungal component. Maintain good hand hygiene given suspicion of MRSA. Bactroban to each nostril BID for treatment of suspected colonization. Blood sugars noted to be elevated at night >200, requiring sliding scale insulin each night. Home medications include Metformin 1000mg BID and Lantus 12 units QHS. Throughout her admission, lantus has slowly be increased with better control. Continue current dose at 18 units QHS. Will increase frequency of BGMs for better evaluation of blood sugar trends to assist in management for optimum control. May need to initiate TID insulin once trends are evaluated. A1c 7% on admission. Consider consult to Dr. Cuellar for additional assistance with medication adjustments for DM. Blood pressure improved with increase of Norvasc to 10mg daily on 10/06/17. Continue to monitor. Behaviors appear to be improving and stable. Continue psychiatric care per Dr. Waters. Continue to provide safe and supportive environment. Recheck labs in AM to monitor blood counts, electrolytes and renal function given recent medication changes. Allow abscess to drain and keep area clean and dry. Warm compresses Q2-3 hours as tolerated. Avoid excess pressure to area and wear loose fitting clothing. 10/10/17 Psych: Start Depakote DR 250mg PO at dinnertime; monitor response. 10/11/17 Psych: Discontinue Cymbalta. Will move Depakote to to help with sleep. Plan for discharge back to LTC facility tomorrow if all goes well.
--- NOTE | 2017-10-12 16:20 | Neuropsych Progress Note ---
[facility] Subjective Date: 10/12/17 - Sujective/Severity of Illness Subjective: Patient seen and chart reviewed. Case discussed with treatment team. On interview, patient is pleasant and reports being in a good mood. She still worries that it takes too long to fall asleep at night. Patient denies any SI or HI. She does not appear to be responding to internal stimuli during interview and has reported voices are much improved from admission. Patient denies any adverse side effects related to psychotropic medications. Nursing staff report patient as pleasant with no significant behavioral difficulties in the past 24 hours. Patient has been adherent with medications. Patient slept well overnight. VSS. Patient is eating well. Psychotropic PRNs required in the past 24 hours: none. Mental Status Exam Vitals: Last Vital Signs Temp 97.4 F 10/12/17 10:55 Pulse 86 10/12/17 10:55 Resp 16 10/12/17 10:55 BP 141/65 H 10/12/17 10:55 Pulse Ox 100 10/12/17 10:55 Height: 1.6 m Weight: 92.4 kg - Mental Status Exam Muscle Strength/Tone: Normal Dressing: Casual Grooming: Fair Attitude: Cooperative Motor Activity: Retardation Eye Contact: Poor Speech: Slowed Volume: Soft Rhythm: Mumbled Orientation: Oriented X4 Mood: Neutral Rate of Thoughts: Delayed Thought Organization: [place] Associations: Intact Abstract Reasoning: Poor abstract reasoning Thought Content: Somatic Concerns Perception/Psychotic: Psychotic Current Hallucinations: Auditory (significantly decreased from admission) Language: Naming Impaired Fund of Knowledge: Poor fund of knowledge Memory: Poor-immediate, Poor-recent Suicidal Ideation: Denies Homicidal Ideation: Denies Insight: Limited Judgement: Limited Impulse Control: Fair - Laboratory Result Diagrams: 10/08/17 06:45 10/08/17 06:45 Laboratory Results - last 24 hr 10/11/17 10/12/17 10/12/17 14:20 11:15 14:17 Glucometer 186 246 129 Assessment and Plan (1) Unspecified schizophrenia, chronic condition with acute exacerbation Problem details: Other medical conditions: Acute abdominal pain - resolved Epigastric abdominal mass Delusions and increasing somatic complaints following recent lumpectomy Cough-? acute vs chronic vs acute on chronic Dry skin Dementia Hypertension Diabetes mellitus type 2 GERD Overactive bladder Hyperlipidemia Rosacea Hypothyroidism Breast cancer Allergic rhinitis Status: Acute Hospital Course Summary Disclaimer: The visit summary below is not to be considered part of the above Progress Note. Hospital Course: 09/29/17 Hospitalist initial consultation: Agree with admission to [facility] for psych evaluation and management and to provide a safe environment. In regard to her cough, will order PRN cough drops and Robitussin. Monitor for fever or increasing symptoms. It sounds like this is a chronic problem for her. No evidence of obvious infection at this time. Continue metformin and insulin for blood sugar control. Based on a hemoglobin of 7.0 and her recent blood sugars all greater than 180, will increase her Lantus from 12 units to 15 units daily at bedtime. Continue Accu-Cheks. Cetaphil moisturizing lotion for dry skin daily with triamcinolone acetonide cream PRN itch. We will continue to manage patient medically throughout her stay. Thank you for the consult. 09/30/17 Psych: Pt is more alert today. She is pleasant and does not appear to be responding to internal stimuli. Continue current care 10/01/17 Hospitalist: Nurse's notes, psychiatric notes, labs and vitals reviewed Sugars are still elevated, increase Lantus to 17 units daily at bedtime. Continue Accu-Cheks. Patient appears medically stable. No other concerns at this time. 10/02/17 Psych: Will change timing of Risperdal to 0.5mg PO q AM and 1mg PO q 1600 to target sundowning; monitor behavior tonight - may need additional medication to target sundowning behaviors/irritability. 10/02/17 Hospitalist Check CBC, BMP, liver panel, UA, complete abdominal US for evaluation of her pain and hepatomegaly. At present, patient is comfortable and resting, no pain medication needed. Make NPO. Case discussed with Dr. Jewell. Treatment plan to be determined after US is resulted. 10/03/17 Hospitalist Abdominal ultrasound was essentially negative other than hepatic steatosis. Labs are normal. She continues to have an obviously palpable mass in epigastric region, however, her pain has resolved and I don't believe her pain was related to this, suspected it was related. She may have the mass worked up on an OP basis. She's been started on simethicone for her gas pains. 10/03/17 Psych: Plan to increase Risperdal to 1mg PO BID; monitor mood, behavior and response. 10/04/17 Psych: Will increase Risperdal to 1mg PO TID to see if this helps with psychosis/delusions, or if it may be contributing to restlessness. May consider addition of Depakote, whether patient may in fact have schizoaffective disorder , bipolar type. Will also request overnight oximetry. Plan - 10/05/17. Savanna continues to have episodes of restlessness. Continue psychiatric care per Dr. Waters. Continue to provide safe and supportive environment. She denies any acute pain or concerns on exam. Appetite is stable and bowels are moving. Blood pressure noted to be elevated with average systolic pressure around 150. Will increase Norvasc to 10mg daily and continue to monitor blood pressure closely. Blood sugars remain elevated and variable. Extensive review of BGM trends was done. Will increase Lantus to 18 units QHS and continue to monitor closely. Continue home metformin and sliding scale insulin as indicated. Dr. Waters expressed concern for sleep apnea. Will obtain night oximetry tonight for results to be reviewed tomorrow. Continue care plan. 10/06/17- Psych- SOme issues with sleep but no behaviors. Continue current care 10/07/17- Psych- Pt doing fairly well. Continue current care Plan - 10/07/17. Savanna complains of severe right ear pain and exam is consistent with otitis externa. In light of uncontrolled diabetes, will cover for pseudomonas. Initiate Ciprodex 4 drop right ear BID through 10/14/17. Abscess to left upper, medial groin I&D on 10/07/17. Patient tolerated well. Culture obtained with results pending. Suspect MRSA. Initiate Clindamycin 300mg TID through 10/17/17. Lactobacillius to assist with possible GI upset associated with Clinda. Monitor patient closely for signs of yeast infections. Anticipate improvement of pustular lesions on abdomen as well as mild folliculitis to groin with Clindamycin. If abdominal pustules persist following treatment with clindamycin, may consider addition of fungal component. Maintain good hand hygiene given suspicion of MRSA. Bactroban to each nostril BID for treatment of suspected colonization. Blood sugars noted to be elevated at night >200, requiring sliding scale insulin each night. Home medications include Metformin 1000mg BID and Lantus 12 units QHS. Throughout her admission, lantus has slowly be increased with better control. Continue current dose at 18 units QHS. Will increase frequency of BGMs for better evaluation of blood sugar trends to assist in management for optimum control. May need to initiate TID insulin once trends are evaluated. A1c 7% on admission. Consider consult to Dr. Cuellar for additional assistance with medication adjustments for DM. Blood pressure improved with increase of Norvasc to 10mg daily on 10/06/17. Continue to monitor. Behaviors appear to be improving and stable. Continue psychiatric care per Dr. Waters. Continue to provide safe and supportive environment. Recheck labs in AM to monitor blood counts, electrolytes and renal function given recent medication changes. Allow abscess to drain and keep area clean and dry. Warm compresses Q2-3 hours as tolerated. Avoid excess pressure to area and wear loose fitting clothing. 10/10/17 Psych: Start Depakote DR 250mg PO at dinnertime; monitor response. 10/11/17 Psych: Discontinue Cymbalta. Will move Depakote to HS to help with sleep. Plan for discharge back to [facility] facility tomorrow if all goes well.
== END 2017-10-12 15:10 | DRG 885 ==
LOC: ED 11:37 → GEN 15:05
PROVIDERS: ADMIT Psychiatry & Neurology Psychiatry; ATTEND Psychiatry & Neurology Psychiatry